=== PATIENT | female | born 1955 | race Caucasian/White ===

== ENCOUNTER → 2017-08-01 10:43 | Outpatient (CLI) | payer OTHER, SELFPAY ==
--- NOTE | 2017-08-01 10:45 | US_ITS ---
STUDY: ULTRASOUND BREAST - LEFT REASON FOR EXAM: Female, 62 years old. Six-month follow-up examination. TECHNIQUE: Axial and longitudinal images of the LEFT breast were performed with a high resolution ultrasound transducer. COMPARISON: Comparison is made with prior study dated January 18, 2017. FINDINGS: LEFT Breast: There is evidence of a 3 mm x 3 mm x 2 mm cyst at 8:00 position of the breast at 1 cm from the nipple. US/Breast Limited Unilateral IMPRESSION: 3 mm x 3 mm x 2 mm cyst at the 8:00 position in the breast at 1 cm from the nipple. ASSESSMENT CATEGORY: BIRADS Category 2: Benign. A letter regarding these results will be sent to the patient by the facility within 30 days. Electronically Signed: Dave Lutz MD at 13:27 EST Tel [phone], Service support ,
== END ==
PROVIDERS: Family Provider Family Medicine; PCP Family Medicine; Visit Provider Obstetrics & Gynecology
DX: R92.2 Inconclusive mammogram (principal)
CPT/HCPCS: 76642

== ENCOUNTER → 2017-10-26 13:40 | Outpatient (CLI) | payer OTHER, SELFPAY | PROVIDERS: Family Provider Family Medicine; PCP Family Medicine | DX: G47.33 Obstructive sleep apnea (adult) (pediatric) (principal) ==

== ENCOUNTER → 2018-03-02 08:25 | Outpatient (CLI) | payer OTHER, SELFPAY ==
--- NOTE | 2018-03-02 08:27 | BI_ITS ---
MAMMOGRAPHY - BILATERAL SCREENING REASON FOR EXAM: Female, 62 years old. Routine annual screening examination. PERTINENT HISTORY: Sister with breast cancer. TECHNIQUE: Digital bilateral breast giovanni (3D mammographic acquisition) in the CC and MLO projections. 2-D mediolateral oblique (MLO) and craniocaudad (CC) views of both breasts were obtained. CAD: Full Field Digital Mammography with Computer Added Detection was performed. COMPARISON: Comparison is made with prior study dated January 10, 2017 and September 03, 2015. FINDINGS: Breast Composition: There are scattered areas of fibroglandular density. There are no dominant masses or suspicious calcifications. Stable 4.2 mm x 4 mm well-defined nodule in the medial retroareolar region of the left breast. This was demonstrated to be a small cyst on prior sonogram dated August 01, 2017. No other significant abnormalities are identified. There has been no significant change since the prior study. BI/SCREENING MAMM (CAD), BILAT IMPRESSION: Stable bilateral screening mammogram. Yearly follow-up mammogram recommended. (A) ASSESSMENT CATEGORY: BIRADS Category 2: Benign. A letter regarding these results will be sent to the patient by the facility within 30 days. Approximately 10% of breast cancers are not detected by mammography. A normal mammogram should not delay biopsy of a clinically suspicious abnormality. [id number] Electronically Signed: Dave Lutz MD at 8:49 EDT Tel [phone], Service support ,
== END ==
PROVIDERS: Family Provider Family Medicine; PCP Family Medicine; Visit Provider Obstetrics & Gynecology
DX: Z12.31 Encounter for screening mammogram for malignant neoplasm of breast (principal)
CPT/HCPCS: 77063; 77067

== ENCOUNTER → 2018-03-15 09:22 | Outpatient (CLI) | payer OTHER, SELFPAY ==
--- NOTE | 2018-03-15 09:23 | US_ITS ---
STUDY: ULTRASOUND BREAST - LEFT REASON FOR EXAM: Female, 62 years old. LT ABN MAMM INTERMITTENT LEFT RETROARIOLAR PAIN POSTNMENOPAUSAL TECHNIQUE: Axial and longitudinal images of the LEFT breast were performed with a high resolution ultrasound transducer. COMPARISON: None. FINDINGS: LEFT Breast: There is a lesion #1 in the retroareolar region. The lesion measures 0.3 x 0.3 x 0.4 cm in size most likely represents a cyst. Posterior Enhancement: Yes. Posterior Shadowing: None. Margins: Sharp and smooth. Echogenicity: Anechoic. Compression effect on Shape: No change. US/Breast Limited Unilateral IMPRESSION: Benign retroareolar cyst measures 4 mm in greatest diameter. ASSESSMENT CATEGORY: BIRADS Category 2: Benign. A letter regarding these results will be sent to the patient by the facility within 30 days. Electronically Signed: Alicia Doherty MD at 12:45 EDT Tel , Service support ,
== END ==
PROVIDERS: Family Provider Family Medicine; PCP Family Medicine; Referring Provider Surgery; Visit Provider Surgery
DX: N63.20 Unspecified lump in the left breast, unspecified quadrant (principal)
CPT/HCPCS: 76642

== ENCOUNTER → 2018-05-09 09:22 | Outpatient (CLI) | payer OTHER, SELFPAY ==
--- NOTE | 2018-05-09 09:26 | US_ITS ---
STUDY: ULTRASOUND BREAST - LEFT REASON FOR EXAM: Female, 62 years old. Left nipple inversion. TECHNIQUE: Axial and longitudinal images of the LEFT breast were performed with a high resolution ultrasound transducer. COMPARISON: Comparison is made with prior ultrasound of the left breast dated March 15, 2018 and prior mammogram dated March 02, 2018. FINDINGS: LEFT Breast: There is a 5 mm x 20 mm x 2 mm cyst in the retroareolar region of the breast. There is also evidence of dilated retroareolar ducts. US/Breast Limited Unilateral IMPRESSION: Stable sonographic examination demonstrated a small retroareolar cyst and dilated ducts. ASSESSMENT CATEGORY: BIRADS Category 2: Benign. A letter regarding these results will be sent to the patient by the facility within 30 days. Electronically Signed: Dave Lutz MD at 10:08 EST Tel [phone], Service support ,
--- OUTSIDE RECORDS SUMMARY | 2018-07-04 10:17 | XMS RPT_ITS ---
:1955 Author Organization OHIP Support Name Relationship Address Phone D Unavailable Unavailable Unavailable NEFTALY GUEVARA Unavailable [address] + [place] [address] D Unavailable Unavailable Unavailable NEFTALY GUEVARA Unavailable [address] + [place] [address] NEFTALY GUEVARA Unavailable [address] + [place], [place] [phone] NEFTALY GUEVARA Unavailable [address] Unavailable [place], [place] [phone] NOT GIVEN Unavailable Unavailable Unavailable D Unavailable Unavailable Unavailable NEFTALY GUEVARA Unavailable [address] + [place] [address] D Unavailable Unavailable Unavailable NEFTALY GUEVARA Unavailable [address] + [place] [address] D Unavailable Unavailable Unavailable D Unavailable Unavailable Unavailable NEFTALY GUEVARA Unavailable [address] + [place] [address] D Unavailable Unavailable Unavailable NEFTALY GUEVARA Unavailable [address] + [place] [address] MICHAEL LORD Unavailable [address] + [place] [address] NEFTALY GUEVARA Unavailable [address] + [place], [place] [phone] NEFTALY GUEVARA Unavailable [address] Unavailable [place], [place] [phone] NOT GIVEN Unavailable Unavailable Unavailable NEFTALY GUEVARA Unavailable [address] + [place], [place] [id number] NEFTALY GUEVARA Unavailable [address] Unavailable [place] [phone] NOT GIVEN Unavailable Unavailable Unavailable NEFTALY GUEVARA Unavailable [address] + [place], [place] [phone] NEFTALY GUEVARA Unavailable [address] Unavailable [place] [id number] NOT GIVEN Unavailable Unavailable Unavailable NEFTALY GUEVARA Unavailable [address] [phone] [place] [address] NEFTALY GUEVARA Unavailable [address] [phone] [place] [address] NEFTALY GUEVARA Unavailable [address] + [place], [place] [phone] NEFTALY GUEVARA Unavailable [address] Unavailable [place] [phone] NOT GIVEN Unavailable Unavailable Unavailable NEFTALY GUEVARA Unavailable [address] + [place], [place] [phone] NEFTALY GUEVARA Unavailable [address] Unavailable [place] [phone] NOT GIVEN Unavailable Unavailable Unavailable D Unavailable Unavailable Unavailable NEFTALY GUEVARA Unavailable [address] + [place] [address] MICHAEL LORD Unavailable [address] + [place] [address] NEFTALY GUEVARA Unavailable [address] + [place], [place] [phone] NEFTALY GUEVARA Unavailable [address] Unavailable [place] [phone] NOT GIVEN Unavailable Unavailable Unavailable NEFTALY GUEVARA Unavailable [address] + [place], [place] [phone] NEFTALY GUEVARA Unavailable [address] Unavailable [place] [phone] NOT GIVEN Unavailable Unavailable Unavailable NEFTALY GUEVARA Unavailable [address] + [place], [place] [phone] NEFTALY GUEVARA Unavailable [address] Unavailable [place] [phone] NOT GIVEN Unavailable Unavailable Unavailable D Unavailable Unavailable Unavailable NEFTALY GUEVARA Unavailable [address] + [place] [address] MICHAEL LORD Unavailable [address] + [place] [address] DEVONKATIA MAYAY Unavailable [address] + [place] [phone] KATIA GUEVARAY Unavailable [address] Un[place] [phone] NOT GIVEN Unavailable Unavailable Unavailable DEVONKATIA MAYAY Unavailable [address] [phone] ~[phone] [place] [address] DEVON NEFTALY Unavailable [address] + [phone] [place] [address] KATIA GUEVARAY Unavailable [address] + [place] [phone] KATIA GUEVARAY Unavailable [address] Unavailable [place] [phone] NOT GIVEN Unavailable Unavailable Unavailable Care Team Providers Name Role Phone Barbara Shields Attending Unavailable Barbara Shields Referring Unavailable Avila, Miko Primary Care Unavailable WENDY CORTEZ Attending Unavailable WENDY CORTEZ Referring Unavailable Avila, Miko Primary Care Unavailable WENDY CORTEZ Consulting Unavailable Barbara Shields Attending Unavailable Barbara Shields Referring Unavailable Avila, Miko Primary Care Unavailable Jb Sharif Attending Unavailable Barbara Shields Referring Unavailable Jb Sharif Attending Unavailable Jb Sharif Referring Unavailable Avila, Miko Primary Care Unavailable Jb Sharif Attending Unavailable Austin, Miko Referring Unavailable RenoabrJb gomez Attending Unavailable Avila, Miko Referring Unavailable CalabrJb gomez Attending Unavailable CalabrettaJb Referring Unavailable Avila, Miko Primary Care Unavailable AVILA, MIKO A Admitting Unavailable AUSTIN MIKO A Attending Unavailable AVILA, MIKO A Primary Care Unavailable ANJELICA JIN MD Consulting Unavailable PROVIDER, UNKNOWN Consulting Unavailable DEMETRIO NÚÑEZ Admitting Unavailable DEMETRIO NÚÑEZ Attending Unavailable DEMETRIO NÚÑEZ Primary Care Unavailable AUSTIN, MIKO A Consulting Unavailable PROVIDER, UNKNOWN Consulting Unavailable PROVIDER, UNKNOWN Consulting Unavailable PROVIDER, UNKNOWN Consulting Unavailable CARTER TURNER M Admitting Unavailable CARTER TURNER M Attending Unavailable KUMAR TURNERAL M Primary Care Unavailable AVILA, MIKO A Admitting Unavailable AVILA, MIKO A Attending Unavailable AVILA, MIKO A Primary Care Unavailable AVILA, MIKO A Consulting Unavailable PROVIDER, UNKNOWN Consulting Unavailable PROVIDER, UNKNOWN Consulting Unavailable PROVIDER, UNKNOWN Consulting Unavailable AVILA, MIKO A Admitting Unavailable AVILA, MIKO A Attending Unavailable AVILA, MIKO A Primary Care Unavailable AVILA, MIKO A Consulting Unavailable PROVIDER, UNKNOWN Consulting Unavailable PROVIDER, UNKNOWN Consulting Unavailable PROVIDER, UNKNOWN Consulting Unavailable JOHNNY, ACHAL M Admitting Unavailable JOHNNY, ACHAL M Attending Unavailable JOHNNY, ACHAL M Primary Care Unavailable AVILA, MIKO A Consulting Unavailable PROVIDER, UNKNOWN Consulting Unavailable PROVIDER, UNKNOWN Consulting Unavailable PROVIDER, UNKNOWN Consulting Unavailable AGUSTIN ORTIZ Admitting Unavailable AGUSTIN ORTIZ Attending Unavailable AGUSTIN ORTIZ Primary Care Unavailable AVILA, MIKO A Consulting Unavailable PROVIDER, UNKNOWN Consulting Unavailable PROVIDER, UNKNOWN Consulting Unavailable PROVIDER, UNKNOWN Consulting Unavailable AGUSTIN ORTIZ Admitting Unavailable AGUSTIN ORTIZ Attending Unavailable ANGEL, AGUSTIN Roca Primary Care Unavailable AVILA, MIKO A Consulting Unavailable PROVIDER, UNKNOWN Consulting Unavailable PROVIDER, UNKNOWN Consulting Unavailable PROVIDER, UNKNOWN Consulting Unavailable JOHNNY, ACHAL M Admitting Unavailable JOHNNY, ACHAL M Attending Unavailable JOHNNY, ACHAL M Primary Care Unavailable AVILA, MIKO A Consulting Unavailable PROVIDER, UNKNOWN Consulting Unavailable PROVIDER, UNKNOWN Consulting Unavailable PROVIDER, UNKNOWN Consulting Unavailable JOHNNY, ACHAL M Admitting Unavailable JOHNNY, ACHAL M Attending Unavailable JOHNNY, ACHAL M Primary Care Unavailable AVILA, MIKO A Consulting Unavailable PROVIDER, UNKNOWN Consulting Unavailable PROVIDER, UNKNOWN Consulting Unavailable PROVIDER, UNKNOWN Consulting Unavailable MARIA DE JESUS DIAZ DO Admitting Unavailable MARIA DE JESUS DIAZ DO Attending Unavailable MARIA DE JESUS DIAZ DO Primary Care Unavailable ANJELICA JIN MD Consulting Unavailable PROVIDER, UNKNOWN Consulting Unavailable YANN HUSSEIN MD Admitting Unavailable YANN HUSSEIN MD Attending Unavailable MACY POWELL MD Consulting Unavailable AUSTIN MENDOZA, MIKO Nunn Primary Care Unavailable AGUSTIN ORTIZ MD Attending Unavailable MIKO AVILA MD Primary Care Unavailable YANN DIALLO JR Attending Unavailable YANN DIALLO JR Referring Unavailable YANN DIALLO JR Referring Unavailable SAN, MASHA M Attending Unavailable DEVAN JB Antoine Referring Unavailable SAN, MASHA M Referring Unavailable SAN, MASHA M Attending Unavailable JB SHARIF Referring Unavailable SAN, MASHA M Referring Unavailable SAN, MASHA M Admitting Unavailable SAN, MASHA M Attending Unavailable SAN, MASHA M Referring Unavailable YANN DIALLO JR Attending Unavailable JARON ZHAO) Attending Unavailable YANN DIALLO JR Referring Unavailable SAN, MASHA Referring Unavailable AVILA, MIKO A Primary Care Unavailable SAN, MASHA Attending Unavailable Mamadou SHARIF JB Referring Unavailable AVILA, MIKO A Primary Care Unavailable SAN, MASHA Attending Unavailable SAN, MASHA Admitting Unavailable SAN, MASHA Referring Unavailable AVILA, MIKO A Primary Care Unavailable SAN, MASHA Referring Unavailable AVILA, MIKO A Primary Care Unavailable SAN, MASHA Attending Unavailable Mamadou SHARIF Referring Unavailable AVILA, MIKO A Primary Care Unavailable YANN DIALLO Referring Unavailable AUSTIN, MIKO A Primary Care Unavailable YANN DIALLO Referring Unavailable YANN DIALLO Attending Unavailable AVILA, MIKO A Primary Care Unavailable PROBLEMS PROBLEMS DATE TYPE CONDITION / CODE ATTENDING STATUS SOURCE 05/24/2018 Active Unknown / NA Active [facility]K(Unknown[facility] Other [place] Repository 05/15/2018 Active Other signs and NA Active [facility] symptoms in breast Clinic Other / N64.59(ICD-10) [place] Repository 05/15/2018 Admitting Unknown / NA Active [facility]Unknown[facility] Repository 05/08/2018 Unknown N64.59 - Other [facility], Active [facility] signs and symptoms [facility] in breast / Hospital N64.59(ICD-10) Repository 03/18/2018 Unknown N63.20 - [facility], Active [facility] Unspecified lump [facility] in the left Hospital breast, Repository unspecified quadrant / N63.20(ICD-10) 03/18/2018 Unknown R92.8 - Other [place], Active [facility] abnormal and [facility] inconclusive Hospital findings on Repository diagnostic imaging of breast / R92.8(ICD-10) 04/05/2015 Active Transient cerebral NORI MARTINEZ, Active [facility] ischemic attack, [facility] Other unspecified / [place] G45.9(ICD-10) Repository 04/05/2015 Active Obstructive sleep NORI MARTINEZ, Active [facility] apnea (adult) [facility] Other (pediatric) / [place] G47.33(ICD-10) Repository 02/05/2018 Active Migraine with NORI MARTINEZ, Active [place] aura, not [facility] Other intractable, [place] without status Repository migrainosus / G43.109(ICD-10) 02/05/2018 Active Restless legs DIALLO JR, Active [facility] syndrome / [facility] Other G25.81(ICD-10) [place] Repository 02/05/2018 Active Chest pain, DIALLO JR, Active [facility] unspecified / [facility] Other R07.9(ICD-10) [place] Repository 10/09/2017 Principle Transient cerebral AVILA, MIKO [facility]unn Active [facility] Diagnosis ischemic attack, [facility] unspecified / Hospital G459(ICD-10) Repository 09/14/2017 Admitting Rheumatoid JOHNNYCARTER AHUJA Active [facility] Diagnosis arthritis with [facility] rheumatoid [facility] Repository without organ or systems involvement / M0579(ICD-10) 09/14/2017 Principle Rheumatoid JOHNNYCARTER AHUJA Active [facility] Diagnosis arthritis with [facility] rheumatoid [facility] Repository without organ or systems involvement / M0579(ICD-10) 09/14/2017 Secondary Other shelter JOHNNYCARTER AHUJA Active [facility] Diagnosis (current) drug [facility] therapy / Hospital C08908(ICD-10) Repository PROCEDURES PROCEDURES No Procedure Records FoundRESULTS RESULTS ANES POST Observed: 05/27/2018 Status: COMPLETED Source: [place] 6:26 PM CLINIC OTHER CAMPUS REPOSITORY HNO ID: [id number] Author: Jamil Johnson Service: Anesthesiology Author Type: Physician Type: Anesthesia PostOp Filed: 05/27/2018 6:30 PM Note Text: POST ANESTHESIA EVALUATION NOTE SERVICE DATE: 05/27/2018 SERVICE TIME: 828 : 1955 Vitals: 05/27/18 1355 05/27/18 1702 05/27/18 174 Temp: 36 ?C (96.8 ?F) 36.8 ?C (98.2 ?F) 36.6 ?C (97.9 ?F) 05/27/18 17005/27/18 17105/27/18 1730 05/27/18 1745 BP: 130/85 130/75 127/74 130/78 05/27/18 1702 05/27/18 1715 05/27/18 1730 05/27/18 174 Pulse: 72 71 72 64 05/27/18 1702 05/27/18 1715 05/27/18 1730 05/27/18 1745 Resp: 12 13 13 8 05/27/18 1702 05/27/18 1715 05/27/18 1730 05/27/18 1745 SpO2: 99% 100% 96% 96% Validated Vital Signs: Yes POST ANES STATUS: No apparent anesthetic complications. The patient is appropriately hydrated with stable respiratory and cardiovascular status. Patient has safe and adequate airway control. The patient has appropriate pain relief and no significant post operative nausea or vomiting. The patient has achieved baseline mental status. Intra-Operative Events: No Significant Anesthesia Events Further assessment by Anesthesia Service: None Other Remarks: Pt was awake and alert in PACU, conversed fluently and appropriately. SIGNATURE: Jamil Johnson MD PATIENT NAME: Claire Guevara DATE: May 27, 2018 TIME: 6:29 PM PAGER/CONTACT #: BRIEF OP NOT Observed: 05/27/2018 Status: COMPLETED Source: [place] 4:52 PM [facility] REPOSITORY HNO ID: [id number] Author: Masha San Service: General Surgery Author Type: Physician Type: Brief Op Note Filed: 05/27/2018 4:53 PM Note Text: BRIEF OPERATIVE / PROCEDURE NOTE LOG ID: [id number] SURGERY/PROCEDURE DATE: 05/27/2018 INCISION/PROCEDURE START TIME: 4:19 PM INCISION CLOSE/PROCEDURE END TIME: SURGEON(S)/PROCEDURALIST(S) AND SENIOR BENEFITS SPECIALIST(S): Surgeon(s) and Role: * Masha San - Primary * Lala Hanna - Fellow No Additional Staff SURGERY/PROCEDURE(S): Left breast duct excisional biopsy ANESTHESIA: General FINDINGS: no suspicious findings ESTIMATED BLOOD LOSS: MINIMAL SPECIMENS: left breast duct excision COMPLICATIONS: None PRE-OP/PRE-PROCEDURE DIAGNOSIS: inverted left nipple POST-OP/POST-PROCEDURE DIAGNOSIS: Abnormal breast exam [N64.59] SIGNATURE: Masha San MD PATIENT NAME: Claire Guevara DATE: May 27, 2018 TIME: 4:52 PM PAGER/CONTACT #: ANES PREOP Observed: 05/27/2018 Status: COMPLETED Source: [place] 2:19 PM [facility] REPOSITORY HNO ID: [id number] Author: Jamil Johnson Service: Anesthesiology Author Type: Physician Type: Anesthesia PreOp Filed: 05/27/2018 3:36 PM Note Text: ANESTHESIOLOGY DAY OF SURGERY NOTE SERVICE DATE: 05/27/2018 SERVICE TIME: 1500 : 1955 Procedure(s) (LRB): LEFT BREAST DUCT EXCISIONAL BIOPSY (Left) Surgeon(s): Masha San Estimated body mass index is 24.09 kg/m? as calculated from the following: Height as of 05/24/18: 160 cm (5' 3). Weight as of 05/24/18: 61.7 kg (136 lb). Most recent hematocrit and potassium results: Potassium 3.7 07/14/2011 ANES DOS/PREOP NOTE: Vitals: 05/27/18 1355 05/27/18 1400 BP: 134/74 Pulse: 67 Resp: 18 Temp: 36 ?C (96.8 ?F) SpO2: 97% Weight: 61.7 kg (136 lb) Height: 160 cm (5' 3) ACTIVE PROBLEM LIST Rheumatoid Arthritis (Hcc) Abnormal Stress Test Hypomania (Hcc) Pvc's Osteopenia Routine Gynecological Examination Gerd (Gastroesophageal Reflux Disease) Impaired Fasting Glucose Neoplasm of Uncertain Behavior of Skin Irritable Bowel Syndrome With Diarrhea Hyperlipidemia Zaid (Obstructive Sleep Apnea) Multiple Thyroid Nodules Tia (Transient Ischemic Attack) Anxiety Neurosis Rbbb Micrognathia Migraine Aura Without Headache Left Pontine Stroke (Hcc) Cerebrovascular Small Vessel Disease Inversion of Nipple PAST MEDICAL HISTORY Diagnosis Date - Abdominal pain - Abnormal breast exam - Arthritis - Bipolar 1 disorder (HCC) - Chest pain - Constipation - Coronary artery disease - Depression - Diabetes (HCC) - Diarrhea - Disorder of bone and cartilage, unspecified - Dizziness - Ear pain - Generalized anxiety disorder - Headache - History of medical problems PVC - Hyperlipidemia 04/05/2015 - Hypertension - Inverted nipple 04/2018 left - Irregular heartbeat beneign irregular heartbeat - Left pontine stroke (HCC) 07/19/2017 - Mitral valve prolapse - Nausea - Numbness and tingling - ZAID (obstructive sleep apnea) - Osteoporosis - Palpitations - Rheumatoid arthritis(714.0) - TIA (transient ischemic attack) PAST SURGICAL HISTORY Procedure Laterality Date - APPENDECTOMY age 48 at time of gallbladder - APPENDECTOMY 2012 - CHOLECYSTECTOMY 2012 - COLONOSCOP W/ OR W/O [facility] SPEC 08/13 Colonoscopy - COLONOSCOP W/ OR W/O [facility] SPEC 04/03/13 Colonoscopy - COLONOSCOP W/ OR W/O [facility] SPEC 04/08/15 Colonoscopy - EGD W/O OR W/BRUSH/WASH 04/03/13 EGD - FOOT LEFT OP SURGERY 06/2014 - HEART CATHETERIZATION 08/04/08 AND 10/2013 Normal Heart Cath --- [facility], Dr. Ortiz - LAPAROSCOPIC CHOLEYCYSTECTOMY 09/11 Cholecystectomy, lap - PAST SURGICAL HISTORY OF 06/2014 bunionectomy - REMOVAL OF HEEL SPUR Right 02/20 - SIGMOIDOSCOPY FLEX DIAG 09/12/2010 Sigmoidoscopy, flexible - VAGINAL HYSTERECTOMY 2008 FAMILY HISTORY Problem Relation Age of Onset - Hypertension Mother - Diabetes Mother age 60 when on insulin - Heart Mother - Cancer Father PROSTATE AGE 73 - Prostate Cancer Father - Diabetes Maternal Grandfather - Arthritis Sister - Cancer Sister Uterus/Colon cancer with mets - ??? - at age 68 - Seizures Daughter - Stroke Daughter - other (migraines) Daughter - other (hypokalemic period paralysis) Daughter - other (avm) Daughter - other (ICH) Daughter - other (high cholesterol) Daughter - Breast Cancer Other 42 triple negative, BRCA1-2 negative, daughter of sister with cancer Social History: Social History Substance Use Topics - Smoking status: Never Smoker - Smokeless tobacco: Never Used - Alcohol use No No current facility-administered medications on file prior to encounter. Current Outpatient Prescriptions on File Prior to Encounter: escitalopram oxalate (LEXAPRO) 10 mg tablet Take 10 mg by mouth once daily. famotidine (PEPCID) 20 mg tablet Take 20 mg by mouth twice daily. fluticasone (FLONASE) 50 mcg/actuation nasal spray FOLIC ACID 1 mg ORAL tablet gabapentin (NEURONTIN) 300 mg capsule TAKE 3 CAPSULES BY MOUTH AT DINNER AND 4 CAPSULES BY MOUTH AT BEDTIME (Patient taking differently: TAKE 2 CAPSULES BY MOUTH AT DINNER AND 3 CAPSULES BY MOUTH AT BEDTIME ) MULTI-VITAMIN ORAL Take by mouth. rosuvastatin (CRESTOR) 5 mg tablet 10 mg every other day. VITAMIN B COMPLEX ORAL Take by mouth once daily. aspirin, enteric coated (ASPIRIN, ENTERIC COATED) 81 mg EC tablet Take 81 mg by mouth once daily. Cholecalciferol, Vitamin D3, (VITAMIN D) 1,000 unit Cap Take 1 capsule by mouth once daily. CPAP Please decrease PAP setting to 9/5 cmH2O and provide us with data download in 2 weeks. etanercept(ENBREL 50 MG/ML (0.98 ML) SUB-Q SYRINGE) takes once weekly. methotrexate 2.5 mg tablet Take 2.5 mg by mouth every Sunday. NITROSTAT 0.4 mg SL tablet Current Facility-Administered Medications: ceFAZolin iv piggyback 2 g in D5W (iso-osmotic) 100 mL (ANCEF) 2 g INTRAVENOUS Pre-Op Once Masha San fentaNYL 50 mcg/mL 50 mcg injection (SUBLIMAZE) 50 mcg INTRAVENOUS (PACU) PRN Jamil Elizabeth HYDROmorphone HCl 0.5 mg injection (DILAUDID) 0.5 mg INTRAVENOUS (PACU) PRN Jamil Elizabeth lactated ringers infusion 5-30 mL/hr INTRAVENOUS CONTINUOUS Masha Antoine San lactated ringers infusion 125 mL/hr INTRAVENOUS (PACU) CONTINUOUS Jamil Elizabeth lidocaine 10 mg/mL (1 %) 1-2 mg injection (XYLOCAINE) 0.1- 0.2 mL INTRADERMAL PRN Masha Antoine San ondansetron (PF) 4 mg injection (ZOFRAN) 4 mg INTRAVENOUS (PACU) PRN Jamil Elizabeth prochlorperazine 10 mg injection (COMPAZINE) 10 mg INTRAVENOUS (PACU) PRN Jamil Elizabeth Allergies: ALLERGIES Allergen Reactions - Augmentin [Amoxicil* Rash DOS EXAM: Adequate NPO status: Yes Anesthetic risks, benefits, alternatives, personnel and consent discussed: Yes Patient agrees to proceed: Yes Previous Anesthesia: No history of adverse event. Airway Assessment: MP 3; Neck ROM: Full ROM without neurologic symptoms; Airway Evaluation: Short Thyromental Distance Symptoms of Sleep Apnea: Pt has a history of ZAID AND has been using BiPAP for 3 years Dentition: Teeth intact Dentures: upper Additional Physical Exam: Lungs: Lungs clear to auscultation. Good diaphragmatic excursion. Cardiac: normal S1 and S2; no rubs, no murmurs, and no gallops Additional Pertinent Findings: N/A Blood Products: Not anticipated for this procedure. Anesthetic Plan: General, Standard ASA Monitors Pain Management Plan: Parenteral or Oral ASA Class: 3 Other Medical Problems: None Chronic Beta Jose Cruz medication administered within 24 hours: N/A I have interviewed and examined the patient. I have reviewed the medical record and/or the pre-anesthesia evaluation, pertinent labs, and test results. Significant changes in the patient's condition since the History and Physical, not otherwise documented in primary service progress notes: No This contains updated information obtained within 48 hours of Surgery/Procedure. SIGNATURE: Jamil Johnson MD PATIENT NAME: Claire Guevara DATE: May 27, 2018 TIME: 2:20 PM CSN: [id number] OPERATIVE NO Observed: 05/27/2018 Status: COMPLETED Source: [place] 12:00 AM CLINIC OTHER CAMPUS REPOSITORY HNO ID: [id number] Author: Masha San Service: General Surgery Author Type: Physician Type: Operative Report Filed: 05/28/2018 10:18 AM Note Text: [facility] - Operative Report CLAIRE GUEVARA : 1955 AGE: 62. SEX: F PATIENT TYPE: A HOSP SV: [facility] LOCATION: [facility] ATTENDING PHYSICIAN: MASHA SAN CSN NUMBER: [id number] DATE OF SURGERY/PROCEDURE: 05/27/2018 INCISION/PROCEDURE START TIME: 4:19 PM INCISION CLOSE/PROCEDURE END TIME: 4:50 PM PREOPERATIVE DIAGNOSIS: Left breast nipple inversion. POSTOPERATIVE DIAGNOSIS: Left breast nipple inversion. SURGEON: Masha San MD SENIOR BENEFITS SPECIALIST: Lala Hanna M.D., PhD, breast fellow. SURGERY/PROCEDURE: Left breast duct excisional biopsy. ANESTHESIA: Laryngeal mask anesthesia. INDICATION: Ms. Guevara is a 62-year-old female, who presented to me for evaluation of new-onset left nipple inversion. This had started several months ago and an imaging workup was negative. Since the inversion was new and there was no clinical or radiographic findings to explain this, I recommended a duct excisional biopsy. The risks, benefits, and alternatives were explained to the patient. She agreed to proceed. DESCRIPTION OF PROCEDURE: The patient was brought back to the operating room and laid in the supine position. After adequate general anesthesia was induced, the patient was prepped and draped in usual sterile fashion. A time-out was performed verifying the correct patient, site, and procedure. The patient received 2 g of Ancef prior to incision. A circumareolar incision was made inside the areola at the 6 o'clock position. A flap of the nipple and areola was made using electrocautery. The ductal tissue behind the nipple was grasped with an Allis and I dissected this out with electrocautery. This was removed and labeled left nipple duct biopsy. The wound was irrigated. Hemostasis was achieved. There was not any suspicious findings during the surgery. 30 mL of 0.5% Marcaine were injected. A figure-of- eight stitch was placed behind the left nipple using a 3-0 Vicryl. The space was then closed using interrupted 3-0 Vicryl stitches. The wound was then closed with interrupted 3-0 Vicryl dermal stitches, followed by running subcuticular 4-0 Monocryl. Exofin was applied. The patient was awoken and brought to the recovery room in stable condition. All sponge and needle counts were correct. Masha San MD AM:[id number] /[id number] HISTORY PHYSICAL Observed: 05/24/2018 Status: COMPLETED Source: [place] 2:14 PM CLINIC OTHER CAMPUS REPOSITORY O ID: [id number] Author: Luci Rosales Service: (none) Author Type: Nurse Practitioner Type: HANDP Filed: 05/24/2018 2:27 PM Note Text: HISTORY AND PHYSICAL EXAMINATION SERVICE DATE: 05/24/2018 SERVICE TIME: 1420 PRIMARY CARE PHYSICIAN: Miko Avila MD REASON FOR VISIT: Claire Guevara is a 62 year old female who is scheduled for NIPPLE BILATERAL EXPLORATION W/ EXCISION OF SOLITARY LACTIFEROUS DUCT at the request of Dr. Masha San for routine HANDP. The patient has the following: ACTIVE PROBLEM LIST Rheumatoid Arthritis (Hcc) Abnormal Stress Test Hypomania (Hcc) Pvc's Osteopenia Routine Gynecological Examination Gerd (Gastroesophageal Reflux Disease) Impaired Fasting Glucose Neoplasm of Uncertain Behavior of Skin Irritable Bowel Syndrome With Diarrhea Hyperlipidemia Zaid (Obstructive Sleep Apnea) Multiple Thyroid Nodules Tia (Transient Ischemic Attack) Anxiety Neurosis Rbbb Micrognathia Migraine Aura Without Headache Left Pontine Stroke (Hcc) Cerebrovascular Small Vessel Disease Inversion of Nipple Subjective CHIEF COMPLAINT: Abnormal breast exam HPI: Ms. Guevara is a 62 year old female present in presurgical testing. She states she had a abnormal mammogram in 01/2018. She had an ultrasound 05/18/2018 that showed a benign 0.6 cm x 0.3 cm x 0.3 cm oval cyst in the left breast at 8 o'clock 3 cm from the nipple. She states she has an inverted nipple as well. Surgery was recommended and she agrees to proceed as planned. She is scheduled for NIPPLE BILATERAL EXPLORATION W/ EXCISION OF SOLITARY LACTIFEROUS DUCT on 05/24/[address] Lim. PAST MEDICAL HISTORY Diagnosis Date - Abdominal pain - Abnormal breast exam - Arthritis - Bipolar 1 disorder (HCC) - Chest pain - Constipation - Coronary artery disease - Depression - Diabetes (HCC) - Diarrhea - Disorder of bone and cartilage, unspecified - Dizziness - Ear pain - Generalized anxiety disorder - Headache - History of medical problems PVC - Hyperlipidemia 04/05/2015 - Hypertension - Inverted nipple 04/2018 left - Irregular heartbeat beneign irregular heartbeat - Left pontine stroke (HCC) 07/19/2017 - Mitral valve prolapse - Nausea - Numbness and tingling - ZAID (obstructive sleep apnea) - Osteoporosis - Palpitations - Rheumatoid arthritis(714.0) - TIA (transient ischemic attack) PAST SURGICAL HISTORY Procedure Laterality Date - APPENDECTOMY age 48 at time of gallbladder - APPENDECTOMY 2012 - CHOLECYSTECTOMY 2012 - COLONOSCOP W/ OR W/O [facility] SPEC 08/13 Colonoscopy - COLONOSCOP W/ OR W/O [facility] SPEC 04/03/13 Colonoscopy - COLONOSCOP W/ OR W/O [facility] SPEC 04/08/15 Colonoscopy - EGD W/O OR W/BRUSH/WASH 04/03/13 EGD - FOOT LEFT OP SURGERY 06/2014 - HEART CATHETERIZATION 08/04/08 AND 10/2013 Normal Heart Cath --- [facility], Dr. Ortiz - LAPAROSCOPIC CHOLEYCYSTECTOMY 09/11 Cholecystectomy, lap - PAST SURGICAL HISTORY OF 06/2014 bunionectomy - REMOVAL OF HEEL SPUR Right 02/20 - SIGMOIDOSCOPY FLEX DIAG 09/12/2010 Sigmoidoscopy, flexible - VAGINAL HYSTERECTOMY 2008 FAMILY HISTORY Problem Relation Age of Onset - Hypertension Mother - Diabetes Mother age 60 when on insulin - Heart Mother - Cancer Father PROSTATE AGE 73 - Prostate Cancer Father - Diabetes Maternal Grandfather - Arthritis Sister - Cancer Sister Uterus/Colon cancer with mets - ??? 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 Taking Cholecalciferol, Vitamin D3, (VITAMIN D) 1,000 unit Cap Take 1 capsule by mouth once daily. Taking CPAP Please decrease PAP setting to 9/5 cmH2O and provide us with data download in 2 weeks. escitalopram oxalate (LEXAPRO) 10 mg tablet Take 10 mg by mouth once daily. Not Taking etanercept(ENBREL 50 MG/ML (0.98 ML) SUB-Q SYRINGE) takes once weekly. Taking famotidine (PEPCID) 20 mg tablet Take 20 mg by mouth twice daily. Taking fluticasone (FLONASE) 50 mcg/actuation nasal spray Taking FOLIC ACID 1 mg ORAL tablet Taking gabapentin (NEURONTIN) 300 mg capsule TAKE 3 CAPSULES BY MOUTH AT DINNER AND 4 CAPSULES BY MOUTH AT BEDTIME Patient taking differently: TAKE 2 CAPSULES BY MOUTH AT DINNER AND 3 CAPSULES BY MOUTH AT BEDTIME methotrexate 2.5 mg tablet Take 2.5 mg by mouth every Sunday. Taking MULTI-VITAMIN ORAL Take by mouth. Taking NITROSTAT 0.4 mg SL tablet Taking rosuvastatin (CRESTOR) 5 mg tablet 10 mg every other day. Not Taking VITAMIN B COMPLEX ORAL Take by mouth once daily. Taking No medication comments found. ALLERGIES Allergen Reactions - Augmentin [Amoxicil* Rash REVIEW OF SYSTEMS: PAIN ASSESSMENT: General: Denies fever, chills, and unexpected weight change. Neuro: Denies dizziness. + headaches. Hx tia- no residual. Respiratory: Denies SOB or cough Cardiovascular: Denies CP. + palpitations. + MVP. + CAD GI: Denies abd pain and N/V/D. + GERD. +IBS : Denies dysuria. 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 Endocrine: + diabetes. Denies or thyroid disease Hematology: Denies history of bleeding or clotting disorder. Psych: + anxiety/depression. + bipolar Musculoskeletal: +RA- hand and feet pain Skin: Denies open sores and rashes. Objective PHYSICAL EXAM: VITALS: BP 120/86 Pulse 84 Temp 98 Resp 18 Ht 5' 3 (1.60m) Wt 136 lb (61.7kg) SpO2 95% LMP 04/11/2005 BMI 24.10 kg/(m2). General: NAD. Cooperative. Skin: Skin is warm, no rashes, and no open sores. HEENT: Normocephalic. Cardiovascular: Normal S1 AND S2. No murmur. Lungs: CTA. No respiratory distress. Abdomen: Soft. Extremities: No edema. Neurological: Alert and oriented to person, place, and time. Pulses: radial pulses +2 Diagnostic tests reviewed for today's visit: Lab Value Units Date High Low Hemoglobin A1C (%) Date Value 07/14/2011 5.9 HBA1C, [place] (%) Date Value 08/10/2010 5.6 07/31/2009 6.4 02/18/2009 6.3 PENDING Assessment/Plan Patient has the following medical conditions which may affect martell-operative course CAD - Stable and medication(s) reviewed. Heart cath . Stress test 01/2018 wnl. Diabetes - Well controlled. Resolved with weight loss. Diet controlled HTN - Well controlled. bp 120/86 day of pretesting Hyperlipidemia ZAID - Patient is not able to use CPAP/BIPAP Hx tia with no residual METS: Climb a flight of stairs or walk up a hill (5.50 METs) ANESTHESIA FINDINGS: Intubation History: hx of difficult intubation 2011. She was not given a letter and has had surgery since that time without any problems Significant Anesthesia Considerations: Difficult intubation and a CAD - Stable and medication(s) reviewed. Heart cath . Stress test 01/2018 wnl. Diabetes - Well controlled. Resolved with weight loss. Diet controlled HTN - Well controlled. bp 120/86 day of pretesting Hyperlipidemia ZAID - Patient is not able to use CPAP/BIPAP Hx mvp. Hx tia with no residual PLAN Planned Procedure: NIPPLE BILATERAL EXPLORATION W/ EXCISION OF SOLITARY LACTIFEROUS DUCT CONSULTS: Patient does not require consults for optimization at this time. The Following Tests/Procedures Have Been Initiated: No orders of the defined types were placed in this encounter. Planned Anesthetic: general Instructions Given to Patient: Patient given verbal and written preop instructions and voices comprehension and compliance. SIGNATURE: Luci Rosales APRN.CNP PATIENT NAME: Claire Guevara DATE: May 24, 2018 TIME: 2:14 PM PAGER/CONTACT #: [email or web address] Observed: 05/22/2018 Status: COMPLETED Source: [place] 2:[address] [facility] OTHER [place] REPOSITORY Office Visit (AGGBRCR) CLAIRE GUEVARA ([id number]) 1955 F T Date Time Provider Department 05/22/18 2:30 PM [facility] During your visit today, we recorded the following information about you: Pulse Blood pressure Weight Height 69/minute 135/77 60.8 kg 1.626 m Iza Candelaria MA 05/22/2018 2:12 PM Signed Patient presents for review of breast ultrasound. KATHERINE Ratliff MD 05/22/2018 2:31 PM Signed Chief Complaint:Patient presents with: Breast Problem: inverted nipple Claire Guevara is a 62 year old female who presents today for imaging results. She has a new onset of left nipple inversion that started several months ago. Today, she had a repeat ultrasound which demonstrated a known benign cyst measuring 0.6 cm at 8 o'clock 3 cm from the nipple and no retroareolar lesions. BIRADS 2. She has no new breast complaints. PAST MEDICAL HISTORY Diagnosis Date - Abdominal pain - Arthritis - Bipolar 1 disorder (HCC) - Chest pain - Constipation - Coronary artery disease - Depression - Diabetes (HCC) - Diarrhea - Disorder of bone and cartilage, unspecified - Dizziness - Ear pain - Generalized anxiety disorder - Headache - History of medical problems PVC - Hyperlipidemia 04/05/2015 - Hypertension - Inverted nipple 04/2018 left - Irregular heartbeat beneign irregular heartbeat - Left pontine stroke (HCC) 07/19/2017 - Mitral valve prolapse - Nausea - Numbness and tingling - Obstructive sleep apnea - ZAID (obstructive sleep apnea) - Osteoporosis - Palpitations - Rheumatoid arthritis(714.0) - TIA (transient ischemic attack) PAST SURGICAL HISTORY Procedure Laterality Date - APPENDECTOMY age 48 at time of gallbladder - APPENDECTOMY 2012 - CHOLECYSTECTOMY 2012 - COLONOSCOP W/ OR W/O [facility] SPEC 08/13 Colonoscopy - COLONOSCOP W/ OR W/O [facility] SPEC 04/03/13 Colonoscopy - COLONOSCOP W/ OR W/O [facility] SPEC 04/08/15 Colonoscopy - EGD W/O OR W/BRUSH/WASH 04/03/13 EGD - FOOT LEFT OP SURGERY 06/2014 - HEART CATHETERIZATION 08/04/08 AND 10/2013 Normal Heart Cath --- [facility], Dr. Ortiz - LAPAROSCOPIC CHOLEYCYSTECTOMY 09/11 Cholecystectomy, lap - PAST SURGICAL HISTORY OF 06/2014 bunionectomy - REMOVAL OF HEEL SPUR Right 02/20 - SIGMOIDOSCOPY FLEX DIAG 09/12/2010 Sigmoidoscopy, flexible - VAGINAL HYSTERECTOMY 2008 FAMILY HISTORY Problem Relation Age of Onset - Hypertension Mother - Diabetes Mother age 60 when on insulin - Heart Mother - Cancer Father PROSTATE AGE 73 - Prostate Cancer Father - Diabetes Maternal Grandfather - Arthritis Sister - Cancer Sister Uterus/Colon cancer with mets - ??? 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 Disp: Rfl: Cholecalciferol, Vitamin D3, (VITAMIN D) 1,000 unit Cap Take 1 capsule by mouth once daily. Disp: Rfl: 0 CPAP Please decrease PAP setting to 9/5 cmH2O and provide us with data download in 2 weeks. Disp: 1 Device Rfl: 0 escitalopram oxalate (LEXAPRO) 10 mg tablet Take 10 mg by mouth once daily. Disp: Rfl: etanercept(ENBREL 50 MG/ML (0.98 ML) SUB-Q SYRINGE) takes once weekly. Disp: Rfl: 0 famotidine (PEPCID) 20 mg tablet Take 20 mg by mouth twice daily. Disp: Rfl: fluticasone (FLONASE) 50 mcg/actuation nasal spray Disp: Rfl: FOLIC ACID 1 mg ORAL tablet Disp: Rfl: gabapentin (NEURONTIN) 300 mg capsule TAKE 3 CAPSULES BY MOUTH AT DINNER AND 4 CAPSULES BY MOUTH AT BEDTIME (Patient taking differently: TAKE 2 CAPSULES BY MOUTH AT DINNER AND 3 CAPSULES BY MOUTH AT BEDTIME ) Disp: 630 capsule Rfl: 0 methotrexate 2.5 mg tablet Take 2.5 mg by mouth every Sunday. Disp: Rfl: MULTI-VITAMIN ORAL Take by mouth. Disp: Rfl: NITROSTAT 0.4 mg SL tablet Disp: Rfl: rosuvastatin (CRESTOR) 5 mg tablet 10 mg every other day. Disp: Rfl: VITAMIN B COMPLEX ORAL Take by mouth once daily. Disp: Rfl: No current facility-administered medications for this visit. BP 135/77 Pulse 69 Ht 5' 4 (1.63m) Wt 134 lb (60.8kg) LMP 04/11/2005 BMI 22.99 kg/(m2). PHYSICAL EXAMINATION General appearance: alert, well appearing, and in no distress Mental status: alert, oriented to person, place and time Neck: supple, no significant adenopathy Breast Exam: On visual in spection of the breasts finds them to be Breasts: symmetric RIGHT Skin changes: No Nipple retraction:No Axillary adenopathy: No Supraclavicular adenopathy: No Palpable masses: No Tenderness: No Nipple discharge: No LEFT Skin changes: No Nipple retraction:Yes, with slit like opening Axillary adenopathy: No Supraclavicular adenopathy: No Palpable masses: No Tenderness: No Nipple discharge: No Pre-op Discussion of Benign Lesions: We have reviewed the risks, benefits and alternatives of the procedure. The risks are to include but not limited to bleeding, infection, inadequate surgical margins, sampling error with false results, unsightly scar, chronic pain, collateral damage, and incomplete resection resulting in a residual mass, and imponderables to include, but not limited to disability or . She understands that if there is a diagnosis of cancer, further surgical treatment will be required. I have answered all of her questions to her satisfaction, she verbalizes that she understands the risks and requests to proceed. ASSESSMENT/PLAN Inversion of nipple Ms. Guevara is a 62 year old female with new onset left nipple inversion. Today, her repeat ultrasound did not identify any lesions and her mammograms in February were benign. On my clinical exam, there is inversion. I recommend a duct excisional biopsy to ensure there is no malignancy. This will be scheduled at her earliest convenience. Masha San MD 05/22/2018 2:25 PM Masha San MD 05/22/2018 2:30 PM Written Ms. Guevara is a 62 year old female with new onset left nipple inversion. Today, her repeat ultrasound did not identify any lesions and her mammograms in February were benign. On my clinical exam, there is inversion. I recommend a duct excisional biopsy to ensure there is no malignancy. This will be scheduled at her earliest convenience. Referring Provider: JB SHARIF [[id number]] Allergies As of Date: 05/22/2018 Noted Allergy Reaction AUGMENTIN (AMOXICILLIN-POT CLAVUL*05/04/2017 2 - Rash Date Reviewed: 05/22/2018 Reviewed by: Iza Candelaria - Fully Assessed Reason for Visit: Breast Problem [16] Cmt: inverted nipple Primary Visit Diagnosis:Inversion, nipple [N64.59] Other Visit Diagnosis:Inversion of nipple [N64.59] Order(s):HANDP FOR SURGERY [[id number]] Order #: [id number] Prescriptions as of 05/22/2018 Sig: ASPIRIN 81 MG TABLET,DELAYED * Take 81 mg by mouth once shane* * CHOLECALCIFEROL (VITAMIN D3) * Take 1 capsule by mouth once * CPAP Please decrease PAP setting t* ESCITALOPRAM 10 MG TABLET Take 10 mg by mouth once shane* * ENBREL 50 MG/ML (0.98 ML) SUB* takes once weekly. FAMOTIDINE 20 MG TABLET Take 20 mg by mouth twice tracy* FLUTICASONE 50 MCG/ACTUATION * * FOLIC ACID 1 MG TABLET GABAPENTIN 300 MG CAPSULE TAKE 3 CAPSULES BY MOUTH AT D* Patient taking differently: TAKE 2 CAPSULES BY MOUTH AT D* METHOTREXATE SODIUM 2.5 MG TA* Take 2.5 mg by mouth every Fr* MULTI-VITAMIN ORAL Take by mouth. NITROSTAT 0.4 MG SUBLINGUAL T* ROSUVASTATIN 5 MG TABLET 10 mg every other day. VITAMIN B COMPLEX ORAL Take by mouth once daily. Problem List As Of Date 05/22/2018 Noted Resolved Rheumatoid arthritis (HCC) [M06.9] More... More... More... Abnormal Stress Test [R94.39] INVALID FOR* More... 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 PVC's INVALID FOR* More... Osteopenia [M85.80] INVALID FOR* Routine Gynecological Examination [Z01.419] INVALID FOR* Class: Chronic More... GERD (Gastroesophageal Reflux Disease) [K21.9] INVALID FOR* More... Impaired Fasting Glucose [R73.01] INVALID FOR* Neoplasm of uncertain behavior of skin [D48.5] INVALID FOR* Irritable bowel syndrome with diarrhea [K58.0] INVALID FOR* Hyperlipidemia [E78.5] INVALID FOR* ZAID (obstructive sleep apnea) [G47.33] INVALID FOR* Multiple thyroid nodules [E04.2] INVALID FOR* TIA (transient ischemic attack) [G45.9] INVALID FOR* Anxiety neurosis [F41.1] INVALID FOR* RBBB [I45.10] INVALID FOR* Micrognathia [M26.09] INVALID FOR* Family history of colon cancer [Z80.0] INVALID FOR*04/08/2015 Migraine aura without headache [G43.109] INVALID FOR* Left pontine stroke (HCC) [I63.50] INVALID FOR* Cerebrovascular small vessel disease [I67.9] INVALID FOR* Inversion of nipple [N64.59] INVALID FOR* More... Visit Notes: >> Iza DilanKatherineVita Bari SunMay 22, 2018 2:10 PM Status: Signed Patient presents for review of breast ultrasound. Iza Candelaria MA Level of Service: EST PATIENT VISIT LEVEL 4 [[id number]] Disposition: Return in about 1 month (around 06/22/2018). Follow-up and Disposition History Recorded Encounter Status:Closed by MASHA SAN MD on 05/22/18 PROGRESS Observed: 05/22/2018 Status: COMPLETED Source: [place] 2:25 PM CLINIC OTHER CAMPUS REPOSITORY O ID: [id number] Author: Masha San Service: (none) Author Type: Physician Type: Progress Notes Filed: 05/22/2018 2:31 PM Note Text: Chief Complaint:Patient presents with: Breast Problem: inverted nipple Claire Guevara is a 62 year old female who presents today for imaging results. She has a new onset of left nipple inversion that started several months ago. Today, she had a repeat ultrasound which demonstrated a known benign cyst measuring 0.6 cm at 8 o'clock 3 cm from the nipple and no retroareolar lesions. BIRADS 2. She has no new breast complaints. PAST MEDICAL HISTORY Diagnosis Date - Abdominal pain - Arthritis - Bipolar 1 disorder (HCC) - Chest pain - Constipation - Coronary artery disease - Depression - Diabetes (HCC) - Diarrhea - Disorder of bone and cartilage, unspecified - Dizziness - Ear pain - Generalized anxiety disorder - Headache - History of medical problems PVC - Hyperlipidemia 04/05/2015 - Hypertension - Inverted nipple 04/2018 left - Irregular heartbeat beneign irregular heartbeat - Left pontine stroke (HCC) 07/19/2017 - Mitral valve prolapse - Nausea - Numbness and tingling - Obstructive sleep apnea - ZAID (obstructive sleep apnea) - Osteoporosis - Palpitations - Rheumatoid arthritis(714.0) - TIA (transient ischemic attack) PAST SURGICAL HISTORY Procedure Laterality Date - APPENDECTOMY age 48 at time of gallbladder - APPENDECTOMY 2012 - CHOLECYSTECTOMY 2012 - COLONOSCOP W/ OR W/O [facility] SPEC 08/13 Colonoscopy - COLONOSCOP W/ OR W/O [facility] SPEC 04/03/13 Colonoscopy - COLONOSCOP W/ OR W/O [facility] SPEC 04/08/15 Colonoscopy - EGD W/O OR W/BRUSH/WASH 04/03/13 EGD - FOOT LEFT OP SURGERY 06/2014 - HEART CATHETERIZATION 08/04/08 AND 10/2013 Normal Heart Cath --- [facility], Dr. Ortiz - LAPAROSCOPIC CHOLEYCYSTECTOMY 09/11 Cholecystectomy, lap - PAST SURGICAL HISTORY OF 06/2014 bunionectomy - REMOVAL OF HEEL SPUR Right 02/20 - SIGMOIDOSCOPY FLEX DIAG 09/12/2010 Sigmoidoscopy, flexible - VAGINAL HYSTERECTOMY 2008 FAMILY HISTORY Problem Relation Age of Onset - Hypertension Mother - Diabetes Mother age 60 when on insulin - Heart Mother - Cancer Father PROSTATE AGE 73 - Prostate Cancer Father - Diabetes Maternal Grandfather - Arthritis Sister - Cancer Sister Uterus/Colon cancer with mets - ??? 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 Disp: Rfl: Cholecalciferol, Vitamin D3, (VITAMIN D) 1,000 unit Cap Take 1 capsule by mouth once daily. Disp: Rfl: 0 CPAP Please decrease PAP setting to 9/5 cmH2O and provide us with data download in 2 weeks. Disp: 1 Device Rfl: 0 escitalopram oxalate (LEXAPRO) 10 mg tablet Take 10 mg by mouth once daily. Disp: Rfl: etanercept(ENBREL 50 MG/ML (0.98 ML) SUB-Q SYRINGE) takes once weekly. Disp: Rfl: 0 famotidine (PEPCID) 20 mg tablet Take 20 mg by mouth twice daily. Disp: Rfl: fluticasone (FLONASE) 50 mcg/actuation nasal spray Disp: Rfl: FOLIC ACID 1 mg ORAL tablet Disp: Rfl: gabapentin (NEURONTIN) 300 mg capsule TAKE 3 CAPSULES BY MOUTH AT DINNER AND 4 CAPSULES BY MOUTH AT BEDTIME (Patient taking differently: TAKE 2 CAPSULES BY MOUTH AT DINNER AND 3 CAPSULES BY MOUTH AT BEDTIME ) Disp: 630 capsule Rfl: 0 methotrexate 2.5 mg tablet Take 2.5 mg by mouth every Sunday. Disp: Rfl: MULTI-VITAMIN ORAL Take by mouth. Disp: Rfl: NITROSTAT 0.4 mg SL tablet Disp: Rfl: rosuvastatin (CRESTOR) 5 mg tablet 10 mg every other day. Disp: Rfl: VITAMIN B COMPLEX ORAL Take by mouth once daily. Disp: Rfl: No current facility-administered medications for this visit. BP 135/77 Pulse 69 Ht 5' 4 (1.63m) Wt 134 lb (60.8kg) LMP 04/11/2005 BMI 22.99 kg/(m2). PHYSICAL EXAMINATION General appearance: alert, well appearing, and in no distress Mental status: alert, oriented to person, place and time Neck: supple, no significant adenopathy Breast Exam: On visual in spection of the breasts finds them to be Breasts: symmetric RIGHT Skin changes: No Nipple retraction:No Axillary adenopathy: No Supraclavicular adenopathy: No Palpable masses: No Tenderness: No Nipple discharge: No LEFT Skin changes: No Nipple retraction:Yes, with slit like opening Axillary adenopathy: No Supraclavicular adenopathy: No Palpable masses: No Tenderness: No Nipple discharge: No Pre-op Discussion of Benign Lesions: We have reviewed the risks, benefits and alternatives of the procedure. The risks are to include but not limited to bleeding, infection, inadequate surgical margins, sampling error with false results, unsightly scar, chronic pain, collateral damage, and incomplete resection resulting in a residual mass, and imponderables to include, but not limited to disability or . She understands that if there is a diagnosis of cancer, further surgical treatment will be required. I have answered all of her questions to her satisfaction, she verbalizes that she understands the risks and requests to proceed. ASSESSMENT/PLAN Inversion of nipple Ms. Guevara is a 62 year old female with new onset left nipple inversion. Today, her repeat ultrasound did not identify any lesions and her mammograms in February were benign. On my clinical exam, there is inversion. I recommend a duct excisional biopsy to ensure there is no malignancy. This will be scheduled at her earliest convenience. Masha San MD 05/22/2018 2:25 PM MAMM US BREAST LTD Observed: 05/22/2018 Status: F Source: [facility] 1:56 PM HEALTH SYSTEM REPOSITORY Performed at [facility] APPROVED BY: ISRRAEL ROONEY MD #[id number] - MAMM US BREAST LTD LEFT LIMITED ULTRASOUND OF LEFT BREAST: 05/22/2018 CLINICAL: The patient is seeing Dr. San today for evaluation of left nipple inversion. Comparison is made to exams dated: 05/09/2018 ultrasound and 03/02/2018 mammogram - [facility]. Color flow and real-time ultrasound of the left breast 8 o'clock, and retroareolar regions were performed. More scale images of the real-time examination were reviewed. There is a benign 0.6 cm x 0.3 cm x 0.3 cm oval cyst in the left breast at 8 o'clock 3 cm from the nipple. This oval cyst is anechoic with posterior acoustic enhancement. This abnormality is not signi ficantly changed and correlates with mammography findings. Color flow imaging demonstrates that there is no increase in vascularity. No sonographic abnormalities are seen in the subareolar breast to correlate with nipple inversion. IMPRESSION: BENIGN There is no sonographic evidence of malignancy. The 0.6 cm x 0.3 cm x 0.3 cm oval cyst in the left breast at 8 o'clock is benign. There is no abnormality seen in the left breast to correspond with the nipple abnormality, however, clinical followup is recommended. Dr. Isrrael rosario/jignesh:05/22/2018 14:04:28 copy to: Jb Sharif, [facility], ph: [phone] copy to: Dr. Miko Avila M.D., Dr. Miko Avila, ph: [phone], fax: [phone] Supervisor Sawmill(s): Emily Lloyd R.D.M.S., [employer] Ultrasound BI-RADS: 2 Benign HOSP Observed: 05/22/2018 Status: COMPLETED Source: [place] 12:00 AM CLINIC OTHER CAMPUS REPOSITORY Patient:Claire Guevara MRN: <[id number]> Height:5' 3(1.6 m) Weight:136 lb (61.689 kg) Outpatient Medications as of 05/27/18: aspirin, enteric coated (ASPIRIN, ENTERIC COATED) 81 mg EC tablet Cholecalciferol, Vitamin D3, (VITAMIN D) 1,000 unit Cap CPAP escitalopram oxalate (LEXAPRO) 10 mg tablet etanercept(ENBREL 50 MG/ML (0.98 ML) SUB-Q SYRINGE) famotidine (PEPCID) 20 mg tablet fluticasone (FLONASE) 50 mcg/actuation nasal spray FOLIC ACID 1 mg ORAL tablet gabapentin (NEURONTIN) 300 mg capsule methotrexate 2.5 mg tablet MULTI-VITAMIN ORAL NITROSTAT 0.4 mg SL tablet rosuvastatin (CRESTOR) 5 mg tablet VITAMIN B COMPLEX ORAL Admission/Clinic Administered Medications as of 05/27/18: ceFAZolin iv piggyback 2 g in D5W (iso-osmotic) 100 mL (ANCEF) fentaNYL 50 mcg/mL 50 mcg injection (SUBLIMAZE) HYDROmorphone HCl 0.5 mg injection (DILAUDID) lactated ringers infusion lactated ringers infusion lidocaine 10 mg/mL (1 %) 1-2 mg injection (XYLOCAINE) ondansetron (PF) 4 mg injection (ZOFRAN) prochlorperazine 10 mg injection (COMPAZINE) Problem List: Rheumatoid arthritis (HCC) [M06.9] Abnormal stress test [R94.39] Hypomania (HCC) [F30.8] PVC's [] Osteopenia [M85.80] Routine gynecological examination [Z01.419] GERD (gastroesophageal reflux disease) [K21.9] Impaired fasting glucose [R73.01] Neoplasm of uncertain behavior of skin [D48.5] Irritable bowel syndrome with diarrhea [K58.0] Hyperlipidemia [E78.5] ZAID (obstructive sleep apnea) [G47.33] Multiple thyroid nodules [E04.2] TIA (transient ischemic attack) [G45.9] Anxiety neurosis [F41.1] RBBB [I45.10] Micrognathia [M26.09] Migraine aura without headache [G43.109] Left pontine stroke (HCC) [I63.50] Cerebrovascular small vessel disease [I67.9] Inversion of nipple [N64.59] Allergies: Augmentin [Amoxicillin-Pot Clavulanate] Date Verified: 05/27/18 Lab Values No results within the last 30 days for the following basenames: K,HCT Progress Notes (GENS AG ACC BRCR): Iza Candelaria MA 05/22/2018 2:12 PM Signed Patient presents for review of breast ultrasound. KATHERINE Ratliff MD 05/22/2018 2:31 PM Signed Chief Complaint:Patient presents with: Breast Problem: inverted nipple Claire Guevara is a 62 year old female who presents today for imaging results. She has a new onset of left nipple inversion that started several months ago. Today, she had a repeat ultrasound which demonstrated a known benign cyst measuring 0.6 cm at 8 o'clock 3 cm from the nipple and no retroareolar lesions. BIRADS 2. She has no new breast complaints. PAST MEDICAL HISTORY Diagnosis Date - Abdominal pain - Arthritis - Bipolar 1 disorder (HCC) - Chest pain - Constipation - Coronary artery disease - Depression - Diabetes (HCC) - Diarrhea - Disorder of bone and cartilage, unspecified - Dizziness - Ear pain - Generalized anxiety disorder - Headache - History of medical problems PVC - Hyperlipidemia 04/05/2015 - Hypertension - Inverted nipple 04/2018 left - Irregular heartbeat beneign irregular heartbeat - Left pontine stroke (HCC) 07/19/2017 - Mitral valve prolapse - Nausea - Numbness and tingling - Obstructive sleep apnea - AZID (obstructive sleep apnea) - Osteoporosis - Palpitations - Rheumatoid arthritis(714.0) - TIA (transient ischemic attack) PAST SURGICAL HISTORY Procedure Laterality Date - APPENDECTOMY age 48 at time of gallbladder - APPENDECTOMY 2012 - CHOLECYSTECTOMY 2012 - COLONOSCOP W/ OR W/O BRS SPEC 08/13 Colonoscopy - COLONOSCOP W/ OR W/O BRSH SPEC 04/03/13 Colonoscopy - COLONOSCOP W/ OR W/O BRSH SPEC 04/08/15 Colonoscopy - EGD W/O OR W/BRUSH/WASH 04/03/13 EGD - FOOT LEFT OP SURGERY 06/2014 - HEART CATHETERIZATION 08/04/08 AND 10/2013 Normal Heart Cath --- [facility], Dr. Ortiz - LAPAROSCOPIC CHOLEYCYSTECTOMY 09/11 Cholecystectomy, lap - PAST SURGICAL HISTORY OF 06/2014 bunionectomy - REMOVAL OF HEEL SPUR Right 02/20 - SIGMOIDOSCOPY FLEX DIAG 09/12/2010 Sigmoidoscopy, flexible - VAGINAL HYSTERECTOMY 2008 FAMILY HISTORY Problem Relation Age of Onset - Hypertension Mother - Diabetes Mother age 60 when on insulin - Heart Mother - Cancer Father PROSTATE AGE 73 - Prostate Cancer Father - Diabetes Maternal Grandfather - Arthritis Sister - Cancer Sister Uterus/Colon cancer with mets - ??? 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 Disp: Rfl: Cholecalciferol, Vitamin D3, (VITAMIN D) 1,000 unit Cap Take 1 capsule by mouth once daily. Disp: Rfl: 0 CPAP Please decrease PAP setting to 9/5 cmH2O and provide us with data download in 2 weeks. Disp: 1 Device Rfl: 0 escitalopram oxalate (LEXAPRO) 10 mg tablet Take 10 mg by mouth once daily. Disp: Rfl: etanercept(ENBREL 50 MG/ML (0.98 ML) SUB-Q SYRINGE) takes once weekly. Disp: Rfl: 0 famotidine (PEPCID) 20 mg tablet Take 20 mg by mouth twice daily. Disp: Rfl: fluticasone (FLONASE) 50 mcg/actuation nasal spray Disp: Rfl: FOLIC ACID 1 mg ORAL tablet Disp: Rfl: gabapentin (NEURONTIN) 300 mg capsule TAKE 3 CAPSULES BY MOUTH AT DINNER AND 4 CAPSULES BY MOUTH AT BEDTIME (Patient taking differently: TAKE 2 CAPSULES BY MOUTH AT DINNER AND 3 CAPSULES BY MOUTH AT BEDTIME ) Disp: 630 capsule Rfl: 0 methotrexate 2.5 mg tablet Take 2.5 mg by mouth every Sunday. Disp: Rfl: MULTI-VITAMIN ORAL Take by mouth. Disp: Rfl: NITROSTAT 0.4 mg SL tablet Disp: Rfl: rosuvastatin (CRESTOR) 5 mg tablet 10 mg every other day. Disp: Rfl: VITAMIN B COMPLEX ORAL Take by mouth once daily. Disp: Rfl: No current facility-administered medications for this visit. BP 135/77 Pulse 69 Ht 5' 4 (1.63m) Wt 134 lb (60.8kg) LMP 04/11/2005 BMI 22.99 kg/(m2). PHYSICAL EXAMINATION General appearance: alert, well appearing, and in no distress Mental status: alert, oriented to person, place and time Neck: supple, no significant adenopathy Breast Exam: On visual in spection of the breasts finds them to be Breasts: symmetric RIGHT Skin changes: No Nipple retraction:No Axillary adenopathy: No Supraclavicular adenopathy: No Palpable masses: No Tenderness: No Nipple discharge: No LEFT Skin changes: No Nipple retraction:Yes, with slit like opening Axillary adenopathy: No Supraclavicular adenopathy: No Palpable masses: No Tenderness: No Nipple discharge: No Pre-op Discussion of Benign Lesions: We have reviewed the risks, benefits and alternatives of the procedure. The risks are to include but not limited to bleeding, infection, inadequate surgical margins, sampling error with false results, unsightly scar, chronic pain, collateral damage, and incomplete resection resulting in a residual mass, and imponderables to include, but not limited to disability or . She understands that if there is a diagnosis of cancer, further surgical treatment will be required. I have answered all of her questions to her satisfaction, she verbalizes that she understands the risks and requests to proceed. ASSESSMENT/PLAN Inversion of nipple Ms. Guevara is a 62 year old female with new onset left nipple inversion. Today, her repeat ultrasound did not identify any lesions and her mammograms in February were benign. On my clinical exam, there is inversion. I recommend a duct excisional biopsy to ensure there is no malignancy. This will be scheduled at her earliest convenience. Masha San MD 05/22/2018 2:25 PM Masha San MD 05/22/2018 2:30 PM Written Ms. Guevara is a 62 year old female with new onset left nipple inversion. Today, her repeat ultrasound did not identify any lesions and her mammograms in February were benign. On my clinical exam, there is inversion. I recommend a duct excisional biopsy to ensure there is no malignancy. This will be scheduled at her earliest convenience. Progress Notes ([facility] AG ACC BRCR): Iza Candelaria MA 05/15/2018 2:19 PM Signed Race: Age at first menstrual period: 12 Age at first : 23 Number of full term pregnancies: 2 Age at menopause: 52 Hysterectomy total Oral Contraceptives: NO took for 3 years Estrogen therapy: NO Patient presents for second opinion regarding an inverted nipple. Noticed this about 3-4 weeks ago. KATHERINE Ratliff MD 05/15/2018 2:54 PM Signed Chief Complaint:Patient presents with: Breast Problem: inverted nipple Claire Guevara is a 62 year old female who presents today for evaluation of new onset inversion of her left nipple. She first noticed this several months ago. Her screening mammograms were done on 03/02/2018 at [facility] which showed fibroglandular tissue and a nodule in the retroareolar left breast that was stable. She has had several left breast ultrasounds. The last one being 05/09/2018 which showed a 2 cm cyst in the retroareolar area, BIRADS 2. The reports are available but I do not have the images. She denies palpating any breast masses or axillary adenopathy. No skin changes. No nipple discharge. PAST MEDICAL HISTORY Diagnosis Date - Abdominal pain - Arthritis - Bipolar 1 disorder (HCC) - Chest pain - Constipation - Coronary artery disease - Depression - Diabetes (HCC) - Diarrhea - Disorder of bone and cartilage, unspecified - Dizziness - Ear pain - Generalized anxiety disorder - Headache - History of medical problems PVC - Hyperlipidemia 04/05/2015 - Hypertension - Inverted nipple 04/2018 left - Irregular heartbeat beneign irregular heartbeat - Left pontine stroke (HCC) 07/19/2017 - Mitral valve prolapse - Nausea - Numbness and tingling - Obstructive sleep apnea - ZAID (obstructive sleep apnea) - Osteoporosis - Palpitations - Rheumatoid arthritis(714.0) - TIA (transient ischemic attack) PAST SURGICAL HISTORY Procedure Laterality Date - APPENDECTOMY age 48 at time of gallbladder - APPENDECTOMY 2012 - CHOLECYSTECTOMY 2012 - COLONOSCOP W/ OR W/O BRSH SPEC 08/13 Colonoscopy - COLONOSCOP W/ OR W/O BRSH SPEC 04/03/13 Colonoscopy - COLONOSCOP W/ OR W/O BRSH SPEC 04/08/15 Colonoscopy - EGD W/O OR W/BRUSH/WASH 04/03/13 EGD - FOOT LEFT OP SURGERY 06/2014 - HEART CATHETERIZATION 08/04/08 AND 10/2013 Normal Heart Cath --- [facility], Dr. Ortiz - LAPAROSCOPIC CHOLEYCYSTECTOMY 09/11 Cholecystectomy, lap - PAST SURGICAL HISTORY OF 06/2014 bunionectomy - REMOVAL OF HEEL SPUR Right 02/20 - SIGMOIDOSCOPY FLEX DIAG 09/12/2010 Sigmoidoscopy, flexible - VAGINAL HYSTERECTOMY 2008 FAMILY HISTORY Problem Relation Age of Onset - Hypertension Mother - Diabetes Mother age 60 when on insulin - Heart Mother - Cancer Father PROSTATE AGE 73 - Prostate Cancer Father - Diabetes Maternal Grandfather - Arthritis Sister - Cancer Sister Uterus/Colon cancer with mets - ??? 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[employer] Social History Main Topics Smoking status: Never Smoker Smokeless tobacco: Never Used Alcohol use: No Drug use: No Sexual activity: Yes Partners with: Male control/protection: Surgical Comment: VASECTOMY ALLERGIES Allergen Reactions - Augmentin [Amoxicil* Rash AGE AT [place] 12 AGE AT FIRST 23 2 FAMILY HISTORY OF BREAST CANCER Yes niece triple negative, genetics negative (IF YES) NUMBER OF FIRST DEGREE RELATIVES WITH BREAST CANCER 0 PREVIOUS BREAST BIOPSIES No RACE ANTONY MODEL RISK 5 YEAR 1.4 ANTONY MODEL RISK LIFETIME 6.0 REVIEW OF SYSTEMS GENERAL: No weight loss, malaise or fevers Breast: see HPI Current Outpatient Prescriptions: gabapentin (NEURONTIN) 300 mg capsule TAKE 3 CAPSULES BY MOUTH AT DINNER AND 4 CAPSULES BY MOUTH AT BEDTIME (Patient taking differently: TAKE 2 CAPSULES BY MOUTH AT DINNER AND 3 CAPSULES BY MOUTH AT BEDTIME ) Disp: 630 capsule Rfl: 0 CPAP Please decrease PAP setting to 9/5 cmH2O and provide us with data download in 2 weeks. Disp: 1 Device Rfl: 0 rosuvastatin (CRESTOR) 5 mg tablet 10 mg every other day. Disp: Rfl: fluticasone (FLONASE) 50 mcg/actuation nasal spray Disp: Rfl: VITAMIN B COMPLEX ORAL Take by mouth once daily. Disp: Rfl: methotrexate 2.5 mg tablet Take 2.5 mg by mouth every Sunday. Disp: Rfl: escitalopram oxalate (LEXAPRO) 10 mg tablet Take 10 mg by mouth once daily. Disp: Rfl: famotidine (PEPCID) 20 mg tablet Take 20 mg by mouth twice daily. Disp: Rfl: NITROSTAT 0.4 mg SL tablet Disp: Rfl: aspirin, enteric coated (ASPIRIN, ENTERIC COATED) 81 mg EC tablet Take 81 mg by mouth once daily. Disp: Rfl: MULTI-VITAMIN ORAL Take by mouth. Disp: Rfl: Cholecalciferol, Vitamin D3, (VITAMIN D) 1,000 unit Cap Take 1 capsule by mouth once daily. Disp: Rfl: 0 FOLIC ACID 1 mg ORAL tablet Disp: Rfl: etanercept(ENBREL 50 MG/ML (0.98 ML) SUB-Q SYRINGE) takes once weekly. Disp: Rfl: 0 No current facility-administered medications for this visit. BP 120/80 Pulse 75 Ht 5' 4 (1.63m) Wt 134 lb (60.8kg) LMP 04/11/2005 BMI 22.99 kg/(m2). PHYSICAL EXAMINATION General appearance: alert, well appearing, and in no distress Mental status: alert, oriented to person, place and time Eyes: pupils equal and reactive, extraocular eye movements intact, conjuctiva and sclera clear Ears: bilateral external ear canals normal Nose: normal and patent, no erythema, no discharge Neck: supple, no significant adenopathy Lymphatics: no palpable lymphadenopathy, no hepatosplenomegaly Chest: clear to auscultation, no wheezes, rales or rhonchi, symmetric air entry Heart: normal rate, regular rhythm, normal S1,S2, no murmurs, rubs, clicks or gallops Abdomen:soft,nontender, non distended, no masses or organomegaly Breast Exam: On visual in spection of the breasts finds them to be Breasts: symmetric RIGHT Skin changes: No Nipple retraction:No Axillary adenopathy: No Supraclavicular adenopathy: No Palpable masses: No Tenderness: No Nipple discharge: No LEFT Skin changes: No Nipple retraction:Yes, with slit like opening Axillary adenopathy: No Supraclavicular adenopathy: No Palpable masses: No Tenderness: No Nipple discharge: No Neurological: alert, oriented, normal speech, no focal findings or movement disorder noted Musculoskeletal: no joint tenderness, deformity or swelling Extremities: peripheral pulses normal, no pedal edema, no clubbing or cyanosis Skin: normal coloration and turgor, no rashes, no suspicious skin lesions ASSESSMENT/PLAN Inversion of nipple Ms. Guevara is a 62 year old female with new onset left nipple inversion. Her imaging done at [facility] demonstrated a retroareolar cyst. I have recommended repeating the left breast ultrasound. We discussed a duct excision pending those results. Masha San MD 05/15/2018 2:41 PM Masha San MD 05/15/2018 2:53 PM Written Ms. Guevara is a 62 year old female with new onset left nipple inversion. Her imaging done at [facility] demonstrated a retroareolar cyst. I have recommended repeating the left breast ultrasound. We discussed a duct excision pending those results. PROGRESS Observed: 05/15/2018 Status: COMPLETED Source: [place] 2:41 PM CLINIC OTHER CAMPUS REPOSITORY O ID: [id number] Author: Masha San Service: (none) Author Type: Physician Type: Progress Notes Filed: 05/15/2018 2:54 PM Note Text: Chief Complaint:Patient presents with: Breast Problem: inverted nipple Claire Guevara is a 62 year old female who presents today for evaluation of new onset inversion of her left nipple. She first noticed this several months ago. Her screening mammograms were done on 03/02/2018 at [facility] which showed fibroglandular tissue and a nodule in the retroareolar left breast that was stable. She has had several left breast ultrasounds. The last one being 05/09/2018 which showed a 2 cm cyst in the retroareolar area, BIRADS 2. The reports are available but I do not have the images. She denies palpating any breast masses or axillary adenopathy. No skin changes. No nipple discharge. PAST MEDICAL HISTORY Diagnosis Date - Abdominal pain - Arthritis - Bipolar 1 disorder (HCC) - Chest pain - Constipation - Coronary artery disease - Depression - Diabetes (HCC) - Diarrhea - Disorder of bone and cartilage, unspecified - Dizziness - Ear pain - Generalized anxiety disorder - Headache - History of medical problems PVC - Hyperlipidemia 04/05/2015 - Hypertension - Inverted nipple 04/2018 left - Irregular heartbeat beneign irregular heartbeat - Left pontine stroke (HCC) 07/19/2017 - Mitral valve prolapse - Nausea - Numbness and tingling - Obstructive sleep apnea - ZAID (obstructive sleep apnea) - Osteoporosis - Palpitations - Rheumatoid arthritis(714.0) - TIA (transient ischemic attack) PAST SURGICAL HISTORY Procedure Laterality Date - APPENDECTOMY age 48 at time of gallbladder - APPENDECTOMY 2012 - CHOLECYSTECTOMY 2012 - COLONOSCOP W/ OR W/O [facility] SPEC 08/13 Colonoscopy - COLONOSCOP W/ OR W/O [facility] SPEC 04/03/13 Colonoscopy - COLONOSCOP W/ OR W/O [facility] SPEC 04/08/15 Colonoscopy - EGD W/O OR W/BRUSH/WASH 04/03/13 EGD - FOOT LEFT OP SURGERY 06/2014 - HEART CATHETERIZATION 08/04/08 AND 10/2013 Normal Heart Cath --- [facility], Dr. Ortiz - LAPAROSCOPIC CHOLEYCYSTECTOMY 09/11 Cholecystectomy, lap - PAST SURGICAL HISTORY OF 06/2014 bunionectomy - REMOVAL OF HEEL SPUR Right 02/20 - SIGMOIDOSCOPY FLEX DIAG 09/12/2010 Sigmoidoscopy, flexible - VAGINAL HYSTERECTOMY 2008 FAMILY HISTORY Problem Relation Age of Onset - Hypertension Mother - Diabetes Mother age 60 when on insulin - Heart Mother - Cancer Father PROSTATE AGE 73 - Prostate Cancer Father - Diabetes Maternal Grandfather - Arthritis Sister - Cancer Sister Uterus/Colon cancer with mets - ??? 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[employer] Social History Main Topics Smoking status: Never Smoker Smokeless tobacco: Never Used Alcohol use: No Drug use: No Sexual activity: Yes Partners with: Male control/protection: Surgical Comment: VASECTOMY ALLERGIES Allergen Reactions - Augmentin [Amoxicil* Rash AGE AT [place] 12 AGE AT FIRST 23 2 FAMILY HISTORY OF BREAST CANCER Yes niece triple negative, genetics negative (IF YES) NUMBER OF FIRST DEGREE RELATIVES WITH BREAST CANCER 0 PREVIOUS BREAST BIOPSIES No RACE ANTONY MODEL RISK 4 YEAR 1.4 ANTONY MODEL RISK LIFETIME 6.0 REVIEW OF SYSTEMS GENERAL: No weight loss, malaise or fevers Breast: see HPI Current Outpatient Prescriptions: gabapentin (NEURONTIN) 300 mg capsule TAKE 3 CAPSULES BY MOUTH AT DINNER AND 4 CAPSULES BY MOUTH AT BEDTIME (Patient taking differently: TAKE 2 CAPSULES BY MOUTH AT DINNER AND 3 CAPSULES BY MOUTH AT BEDTIME ) Disp: 630 capsule Rfl: 0 CPAP Please decrease PAP setting to 9/5 cmH2O and provide us with data download in 2 weeks. Disp: 1 Device Rfl: 0 rosuvastatin (CRESTOR) 5 mg tablet 10 mg every other day. Disp: Rfl: fluticasone (FLONASE) 50 mcg/actuation nasal spray Disp: Rfl: VITAMIN B COMPLEX ORAL Take by mouth once daily. Disp: Rfl: methotrexate 2.5 mg tablet Take 2.5 mg by mouth every Sunday. Disp: Rfl: escitalopram oxalate (LEXAPRO) 10 mg tablet Take 10 mg by mouth once daily. Disp: Rfl: famotidine (PEPCID) 20 mg tablet Take 20 mg by mouth twice daily. Disp: Rfl: NITROSTAT 0.4 mg SL tablet Disp: Rfl: aspirin, enteric coated (ASPIRIN, ENTERIC COATED) 81 mg EC tablet Take 81 mg by mouth once daily. Disp: Rfl: MULTI-VITAMIN ORAL Take by mouth. Disp: Rfl: Cholecalciferol, Vitamin D3, (VITAMIN D) 1,000 unit Cap Take 1 capsule by mouth once daily. Disp: Rfl: 0 FOLIC ACID 1 mg ORAL tablet Disp: Rfl: etanercept(ENBREL 50 MG/ML (0.98 ML) SUB-Q SYRINGE) takes once weekly. Disp: Rfl: 0 No current facility-administered medications for this visit. BP 120/80 Pulse 75 Ht 5' 4 (1.63m) Wt 134 lb (60.8kg) LMP 04/11/2005 BMI 22.99 kg/(m2). PHYSICAL EXAMINATION General appearance: alert, well appearing, and in no distress Mental status: alert, oriented to person, place and time Eyes: pupils equal and reactive, extraocular eye movements intact, conjuctiva and sclera clear Ears: bilateral external ear canals normal Nose: normal and patent, no erythema, no discharge Neck: supple, no significant adenopathy Lymphatics: no palpable lymphadenopathy, no hepatosplenomegaly Chest: clear to auscultation, no wheezes, rales or rhonchi, symmetric air entry Heart: normal rate, regular rhythm, normal S1,S2, no murmurs, rubs, clicks or gallops Abdomen:soft,nontender, non distended, no masses or organomegaly Breast Exam: On visual in spection of the breasts finds them to be Breasts: symmetric RIGHT Skin changes: No Nipple retraction:No Axillary adenopathy: No Supraclavicular adenopathy: No Palpable masses: No Tenderness: No Nipple discharge: No LEFT Skin changes: No Nipple retraction:Yes, with slit like opening Axillary adenopathy: No Supraclavicular adenopathy: No Palpable masses: No Tenderness: No Nipple discharge: No Neurological: alert, oriented, normal speech, no focal findings or movement disorder noted Musculoskeletal: no joint tenderness, deformity or swelling Extremities: peripheral pulses normal, no pedal edema, no clubbing or cyanosis Skin: normal coloration and turgor, no rashes, no suspicious skin lesions ASSESSMENT/PLAN Inversion of nipple Ms. Guevara is a 62 year old female with new onset left nipple inversion. Her imaging done at [facility] demonstrated a retroareolar cyst. I have recommended repeating the left breast ultrasound. We discussed a duct excision pending those results. Masha San MD 05/15/2018 2:41 PM CNOV Observed: 05/15/2018 Status: COMPLETED Source: [place] 2:00 PM CLINIC OTHER CAMPUS REPOSITORY Office Visit (AGGBRCR) CLAIRE GUEVARA ([id number]) 1955 F [facility] Date Time Provider Department 05/15/18 2:00 PM [facility] During your visit today, we recorded the following information about you: Pulse Blood pressure Weight Height 75/minute 120/80 60.8 kg 1.626 m Iza Candelaria MA 05/15/2018 2:19 PM Signed Race: Age at first menstrual period: 12 Age at first : 23 Number of full term pregnancies: 2 Age at menopause: 52 Hysterectomy total Oral Contraceptives: NO took for 3 years Estrogen therapy: NO Patient presents for second opinion regarding an inverted nipple. Noticed this about 3-4 weeks ago. KATHERINE Ratliff MD 05/15/2018 2:54 PM Signed Chief Complaint:Patient presents with: Breast Problem: inverted nipple Claire Guevara is a 62 year old female who presents today for evaluation of new onset inversion of her left nipple. She first noticed this several months ago. Her screening mammograms were done on 03/02/2018 at [facility] which showed fibroglandular tissue and a nodule in the retroareolar left breast that was stable. She has had several left breast ultrasounds. The last one being 05/09/2018 which showed a 2 cm cyst in the retroareolar area, BIRADS 2. The reports are available but I do not have the images. She denies palpating any breast masses or axillary adenopathy. No skin changes. No nipple discharge. PAST MEDICAL HISTORY Diagnosis Date - Abdominal pain - Arthritis - Bipolar 1 disorder (HCC) - Chest pain - Constipation - Coronary artery disease - Depression - Diabetes (HCC) - Diarrhea - Disorder of bone and cartilage, unspecified - Dizziness - Ear pain - Generalized anxiety disorder - Headache - History of medical problems PVC - Hyperlipidemia 04/05/2015 - Hypertension - Inverted nipple 04/2018 left - Irregular heartbeat beneign irregular heartbeat - Left pontine stroke (HCC) 07/19/2017 - Mitral valve prolapse - Nausea - Numbness and tingling - Obstructive sleep apnea - ZAID (obstructive sleep apnea) - Osteoporosis - Palpitations - Rheumatoid arthritis(714.0) - TIA (transient ischemic attack) PAST SURGICAL HISTORY Procedure Laterality Date - APPENDECTOMY age 48 at time of gallbladder - APPENDECTOMY 2012 - CHOLECYSTECTOMY 2012 - COLONOSCOP W/ OR W/O BRSH SPEC 08/13 Colonoscopy - COLONOSCOP W/ OR W/O BRSH SPEC 04/03/13 Colonoscopy - COLONOSCOP W/ OR W/O BRSH SPEC 04/08/15 Colonoscopy - EGD W/O OR W/BRUSH/WASH 04/03/13 EGD - FOOT LEFT OP SURGERY 06/2014 - HEART CATHETERIZATION 08/04/08 AND 10/2013 Normal Heart Cath --- [facility], Dr. Ortiz - LAPAROSCOPIC CHOLEYCYSTECTOMY 09/11 Cholecystectomy, lap - PAST SURGICAL HISTORY OF 06/2014 bunionectomy - REMOVAL OF HEEL SPUR Right 02/20 - SIGMOIDOSCOPY FLEX DIAG 09/12/2010 Sigmoidoscopy, flexible - VAGINAL HYSTERECTOMY 2008 FAMILY HISTORY Problem Relation Age of Onset - Hypertension Mother - Diabetes Mother age 60 when on insulin - Heart Mother - Cancer Father PROSTATE AGE 73 - Prostate Cancer Father - Diabetes Maternal Grandfather - Arthritis Sister - Cancer Sister Uterus/Colon cancer with mets - ??? 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[employer]* Social History Main Topics Smoking status: Never Smoker Smokeless tobacco: Never Used Alcohol use: No Drug use: No Sexual activity: Yes Partners with: Male control/protection: Surgical Comment: VASECTOMY ALLERGIES Allergen Reactions - Augmentin [Amoxicil* Rash AGE AT MENARCHE 12 AGE AT FIRST 23 2 FAMILY HISTORY OF BREAST CANCER Yes niece triple negative, genetics negative (IF YES) NUMBER OF FIRST DEGREE RELATIVES WITH BREAST CANCER 0 PREVIOUS BREAST BIOPSIES No RACE ANTONY MODEL RISK 5 YEAR 1.4 ANTONY MODEL RISK LIFETIME 6.0 REVIEW OF SYSTEMS GENERAL: No weight loss, malaise or fevers Breast: see HPI Current Outpatient Prescriptions: gabapentin (NEURONTIN) 300 mg capsule TAKE 3 CAPSULES BY MOUTH AT DINNER AND 4 CAPSULES BY MOUTH AT BEDTIME (Patient taking differently: TAKE 2 CAPSULES BY MOUTH AT DINNER AND 3 CAPSULES BY MOUTH AT BEDTIME ) Disp: 630 capsule Rfl: 0 CPAP Please decrease PAP setting to 9/5 cmH2O and provide us with data download in 2 weeks. Disp: 1 Device Rfl: 0 rosuvastatin (CRESTOR) 5 mg tablet 10 mg every other day. Disp: Rfl: fluticasone (FLONASE) 50 mcg/actuation nasal spray Disp: Rfl: VITAMIN B COMPLEX ORAL Take by mouth once daily. Disp: Rfl: methotrexate 2.5 mg tablet Take 2.5 mg by mouth every Sunday. Disp: Rfl: escitalopram oxalate (LEXAPRO) 10 mg tablet Take 10 mg by mouth once daily. Disp: Rfl: famotidine (PEPCID) 20 mg tablet Take 20 mg by mouth twice daily. Disp: Rfl: NITROSTAT 0.4 mg SL tablet Disp: Rfl: aspirin, enteric coated (ASPIRIN, ENTERIC COATED) 81 mg EC tablet Take 81 mg by mouth once daily. Disp: Rfl: MULTI-VITAMIN ORAL Take by mouth. Disp: Rfl: Cholecalciferol, Vitamin D3, (VITAMIN D) 1,000 unit Cap Take 1 capsule by mouth once daily. Disp: Rfl: 0 FOLIC ACID 1 mg ORAL tablet Disp: Rfl: etanercept(ENBREL 50 MG/ML (0.98 ML) SUB-Q SYRINGE) takes once weekly. Disp: Rfl: 0 No current facility-administered medications for this visit. BP 120/80 Pulse 75 Ht 5' 4 (1.63m) Wt 134 lb (60.8kg) LMP 04/11/2005 BMI 22.99 kg/(m2). PHYSICAL EXAMINATION General appearance: alert, well appearing, and in no distress Mental status: alert, oriented to person, place and time Eyes: pupils equal and reactive, extraocular eye movements intact, conjuctiva and sclera clear Ears: bilateral external ear canals normal Nose: normal and patent, no erythema, no discharge Neck: supple, no significant adenopathy Lymphatics: no palpable lymphadenopathy, no hepatosplenomegaly Chest: clear to auscultation, no wheezes, rales or rhonchi, symmetric air entry Heart: normal rate, regular rhythm, normal S1,S2, no murmurs, rubs, clicks or gallops Abdomen:soft,nontender, non distended, no masses or organomegaly Breast Exam: On visual in spection of the breasts finds them to be Breasts: symmetric RIGHT Skin changes: No Nipple retraction:No Axillary adenopathy: No Supraclavicular adenopathy: No Palpable masses: No Tenderness: No Nipple discharge: No LEFT Skin changes: No Nipple retraction:Yes, with slit like opening Axillary adenopathy: No Supraclavicular adenopathy: No Palpable masses: No Tenderness: No Nipple discharge: No Neurological: alert, oriented, normal speech, no focal findings or movement disorder noted Musculoskeletal: no joint tenderness, deformity or swelling Extremities: peripheral pulses normal, no pedal edema, no clubbing or cyanosis Skin: normal coloration and turgor, no rashes, no suspicious skin lesions ASSESSMENT/PLAN Inversion of nipple Ms. Guevara is a 62 year old female with new onset left nipple inversion. Her imaging done at [facility] demonstrated a retroareolar cyst. I have recommended repeating the left breast ultrasound. We discussed a duct excision pending those results. Masha San MD 05/15/2018 2:41 PM Masha San MD 05/15/2018 2:53 PM Written Ms. Guevara is a 62 year old female with new onset left nipple inversion. Her imaging done at [facility] demonstrated a retroareolar cyst. I have recommended repeating the left breast ultrasound. We discussed a duct excision pending those results. Street Light Lamp Cleaner: Facesheet ID: [id number] 05/15/2018 12:00 AM Author: MEL PROVIDER Signed by [facility] PROVIDER on 05/15/2018 at 1:35 PM Document text: Display document [id number] only Referring Provider: JB SHARIF [[id number]] Allergies As of Date: 05/15/2018 Noted Allergy Reaction AUGMENTIN (AMOXICILLIN-POT CLAVUL*05/04/2017 2 - Rash Date Reviewed: 05/15/2018 Reviewed by: Masha San - Fully Assessed Reason for Visit: Breast Problem [16] Cmt: inverted nipple Primary Visit Diagnosis:Inversion of nipple [N64.59] Order(s):[employer] [[id number]] Order #: [id number] FUTURE Prescriptions as of 05/15/2018 Sig: GABAPENTIN 300 MG CAPSULE TAKE 3 CAPSULES BY MOUTH AT D* Patient taking differently: TAKE 2 CAPSULES BY MOUTH AT D* CPAP Please decrease PAP setting t* ROSUVASTATIN 5 MG TABLET 10 mg every other day. FLUTICASONE 50 MCG/ACTUATION * VITAMIN B COMPLEX ORAL Take by mouth once daily. METHOTREXATE SODIUM 2.5 MG TA* Take 2.5 mg by mouth every Fr* ESCITALOPRAM 10 MG TABLET Take 10 mg by mouth once shane* FAMOTIDINE 20 MG TABLET Take 20 mg by mouth twice tracy* NITROSTAT 0.4 MG SUBLINGUAL T* ASPIRIN 81 MG TABLET,DELAYED * Take 81 mg by mouth once shane* MULTI-VITAMIN ORAL Take by mouth. * CHOLECALCIFEROL (VITAMIN D3) * Take 1 capsule by mouth once * * FOLIC ACID 1 MG TABLET * ENBREL 50 MG/ML (0.98 ML) SUB* takes once weekly. Problem List As Of Date 05/15/2018 Noted Resolved Rheumatoid arthritis (HCC) [M06.9] More... More... More... Abnormal Stress Test [R94.39] INVALID FOR* More... 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 PVC's INVALID FOR* More... Osteopenia [M85.80] INVALID FOR* Routine Gynecological Examination [Z01.419] INVALID FOR* Class: Chronic More... GERD (Gastroesophageal Reflux Disease) [K21.9] INVALID FOR* More... Impaired Fasting Glucose [R73.01] INVALID FOR* Neoplasm of uncertain behavior of skin [D48.5] INVALID FOR* Irritable bowel syndrome with diarrhea [K58.0] INVALID FOR* Hyperlipidemia [E78.5] INVALID FOR* ZAID (obstructive sleep apnea) [G47.33] INVALID FOR* Multiple thyroid nodules [E04.2] INVALID FOR* TIA (transient ischemic attack) [G45.9] INVALID FOR* Anxiety neurosis [F41.1] INVALID FOR* RBBB [I45.10] INVALID FOR* Micrognathia [M26.09] INVALID FOR* Family history of colon cancer [Z80.0] INVALID FOR*04/08/2015 Migraine aura without headache [G43.109] INVALID FOR* Left pontine stroke (HCC) [I63.50] INVALID FOR* Cerebrovascular small vessel disease [I67.9] INVALID FOR* Inversion of nipple [N64.59] INVALID FOR* More... Visit Notes: >> Iza Candelaria SunMay 15, 2018 1:43 PM Status: Signed Race: Age at first menstrual period: 12 Age at first : 23 Number of full term pregnancies: 2 Age at menopause: 52 Hysterectomy total Oral Contraceptives: NO took for 3 years Estrogen therapy: NO Patient presents for second opinion regarding an inverted nipple. Noticed this about 3-4 weeks ago. Iza Candelaria MA Medications Discontinued During This Encounter escitalopram oxalate (LEXAPRO) 20 mg* 05/15/2018 Class: Historical Med Route: ORAL Sig: Take 20 mg by mouth once daily. Disc: Dosage adjustment ondansetron (ZOFRAN) 4 mg tablet 10 t* 2 02/05/2018 05/15/2018 Route: ORAL Sig: Take 1 tablet by mouth once daily as needed (for nausea.). Patient not taking: Reported on 05/15/2018 Disc: Discontinued by another Health Care Provider Level of Service: NEW PATIENT VISIT LEVEL 3 [[id number]] Disposition: Return in about 1 week (around 05/22/2018). Follow-up and Disposition History Recorded Questionnaire: AG BRCR ANTONY MODEL SCORING AGE AT MENARCHE -> 12 AGE AT FIRST -> 23 Cmt: 2 FAMILY HISTORY OF BREAST CANCER -> Yes Cmt: niece triple negative, genetics negative (IF YES) NUMBER OF FIRST DEGREE RELATIVES WITH BREAST CANCER -> 0 PREVIOUS BREAST BIOPSIES -> No RACE -> ANTONY MODEL RISK 5 YEAR -> 1.4 ANTONY MODEL RISK LIFETIME -> 6.0 Encounter Status:Closed by MASHA SAN MD on 05/15/18 BREAST LIMITED Observed: 05/09/2018 Status: F Source: [place] 9:26 [facility] REPOSITORY [facility] Imaging Services [address] [place] [address] Breast Limited Unilateral MR#: [id number] Acct: [id number] Name: CLAIRE GUEVARA Rep #: [id number] : 1955 F 62 From: Dave Lutz MD PCP: Miko Avila MD Status: REG CLI Study: Breast Limited Unilateral Date of Exam: 05/09/18 Exam# [id number] Ordering Dr: Jb Sharif MD STUDY: ULTRASOUND BREAST - LEFT REASON FOR EXAM: Female, 62 years old. Left nipple inversion. TECHNIQUE: Axial and longitudinal images of the LEFT breast were performed with a high resolution ultrasound transducer. COMPARISON: Comparison is made with prior ultrasound of the left breast dated March 15, 2018 and prior mammogram dated March 02, 2018. FINDINGS: LEFT Breast: There is a 5 mm x 20 mm x 2 mm cyst in the retroareolar region of the breast. There is also evidence of dilated retroareolar ducts. US/Breast Limited Unilateral IMPRESSION: Stable sonographic examination demonstrated a small retroareolar cyst and dilated ducts. ASSESSMENT CATEGORY: BIRADS Category 2: Benign. A letter regarding these results will be sent to the patient by the facility within 30 days. Electronically Signed: Dave Lutz MD at 10:08 EST Tel [phone], Service support , CC: Jb Sharif MD; Miko Avila MD Van Loader: Signed SURGERY VISIT REPORT Observed: 05/06/2018 Status: F Source: [place] 8:48 AM [facility] [address] [place] [address] OFFICE VISIT Date of Service: 05/06/18 MR#: [id number] Acct: [id number] Name: CLAIRE GUEVARA Rep #: [id number] : 1955 Provider: Jb Sharif MD Age/Sex: 62/F Location: [facility] Status: Signed Intake Intake Visit Reasons: 2 wk FU nipple changes Aircraft Quality Control Inspector Required: No Is patient in pain?: No Allergies No Known Allergies Allergy (Verified 05/06/18 08:29) Medications Cholecalciferol (VIT D3) [Vitamin D3] 1 tab PO DAILY 11/14/14 [History Confirmed 05/06/18] Escitalopram Oxalate [Lexapro] 10 mg PO QHS 11/14/14 [History Confirmed 05/06/18] Etanercept [Enbrel] 50 mg SQ TU 11/14/14 [History Confirmed 05/06/18] Folic Acid 1 mg PO DAILY@0800 11/14/14 [History Confirmed 05/06/18] Multivitamins,Ther W-Minerals [Multivitamin With Minerals] 1 tab PO DAILY 11/14/14 [History Confirmed 05/06/18] Famotidine [Pepcid] 20 mg PO DAILY 12/11/16 [History Confirmed 05/06/18] Flonase Allergy Relief 2 spray NASAL DAILY 12/11/16 [History Confirmed 05/06/18] Gabapentin [Neurontin] 1,200 mg PO QHS 12/11/16 [History Confirmed 05/06/18] Gabapentin [Neurontin] 900 mg PO DINNER 12/11/16 [History Confirmed 05/06/18] Magnesium Oxide [Magnesium] 400 mg PO BID 12/11/16 [History Confirmed 05/06/18] Aspirin [Aspirin, Baby] 81 mg PO DAILY@0800 #90 tab.chew 12/12/16 [Rx Confirmed 05/06/18] methotrexate sodium 2.5 mg tablet 7.5 mg PO FR tab 03/13/18 [History Confirmed 05/06/18] [facility] Medical History TIA (transient ischemic attack) (Acute) Esophageal reflux (Chronic) IBS (irritable bowel syndrome) (Chronic) Osteoporosis (Chronic) Restless legs syndrome (RLS) (Chronic) Rheumatoid arthritis (Chronic) Anxiety and depression (Chronic) Borderline diabetes (Chronic) Dyslipidemia (Chronic) Immunosuppressed status (Chronic) 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, acute episode, 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) TIA (transient ischemic attack) (Acute) Left-sided weakness (Acute) Obstructive sleep apnea (Chronic) Right bundle branch block (Chronic) Colon polyps (Chronic) Leukopenia (Acute) Surgical History H/O foot surgery (Acute) H/O left heart catheterization by cutdown (Acute) S/P hysterectomy (Acute) S/P laparoscopic cholecystectomy (Acute) Family History Mother Diabetes Heart disease Hypertension CAD (coronary artery disease) Sister Breast cancer Daughter CVA (cerebral vascular accident) Diabetes Social History Smoking Status: Never smoker alcohol intake: never substance use type: does not use HPI HPI HPI: CLAIRE GUEVARA, is a 62 F who presents to the office today for follow-up for left nipple inversion. The patient's central nipple is still inverted. She is not having any discharge or discomfort. ROS General General: No weight change or fatigue Cardio Cardiovascular: No murmur, pacemaker, heart disease, atrial fibrillation, high blood pressure, heart attack, heart stent, palpitations, shortness of breat with exertion or chest pain Psych Psychiatric: No depression or anxiety Resp Respiratory: No shortness of breath, No sleep apnea, No cough, No COPD, No asthma, No emphysema, No wheezing Gastro Gastrointestinal: No abdominal pain, No nausea or vomiting, No diarrhea, No constipation, No blood in stool, No acid reflux, No hemorrhoids, No ulcers, No gallbladder problem, No black,tarry stools Ruben Hematologic: No blood thinners Exam Const General: cooperative Orientation: alert, oriented x3 Chest Other: Patient still has left nipple central inversion. There is no discharge or palpable masses Resp Effort AND Inspection: normal respiratory effort Auscultation: clear to auscultation bilaterally Cardio Rate: regular rate Rhythm: regular rhythm Heart Sounds: no murmurs GI Inspection: non-distended Palpation: soft, nontender Assessment AND Plan Problems 1. Inversion of nipple N64.59 Plan 1. Patient still having left nipple inversion. I will order an ultrasound to rule out any masses causing this. If there are no masses behind the nipple I would recommend a second opinion from a breast surgeon. This may be physiologic but I would like to make sure that a breast surgeon agrees. Jb Sharif MD Pager: [facility] [address] [place] [address], [address] [place] [phone] Office: Orders Orders: Coding Level of Care Code Off vis,est,level 2 Diagnoses Inversion of nipple N64.59 05/06/18 0848 <Electronically signed by Jb Sharif MD> Date Jb Sharif MD Cosigner Signature: Date (if applicable) CC: Miko Avila MD CBC Collected: 05/03/2018 Status: F Source: [place] 11:11 AM [facility] REPOSITORY TYPE CODE TESTS RESULT OUT OF RANGE REFERENCE UNITS LAB CBC(LOINC) CBC Result Comment: CBC-COMPLETE BLOOD COUNT LAB WBC(LOINC) 4.5 - 10.8 x 10EE3/UL WBC 4.8 LAB RBC(LOINC) 4.10 - x 10EE6/UL 5.30 RBC 4.32 LAB HEMOGLOBIN(LOINC) 12.0 - g/dl 16.0 HEMOGLOBIN 13.7 LAB HEMATOCRIT(LOINC) 34.0 - % 46.0 HEMATOCRIT 40.3 LAB MCV(LOINC) 80 - 99 fl MCV 93 LAB MCH(LOINC) 27 - 33 pg MCH 32 LAB MCHC(LOINC) 32 - 36 X10 3 MCHC 34 LAB RDW/CV(LOINC) 12.0 - % 15.6 RDW/CV 13.8 LAB PLATELET(LOINC) 150 - 450 x10EE3/UL PLATELET Low 146 LAB MPV(LOINC) 6.6 - 10.5 fl MPV 8.4 Result Comment: AUTOMATED DIFFERENTIAL LAB NEUT %(LOINC) 46.0 - 76.0 % NEUT % 47.4 LAB LYMPH %(LOINC) 20.0 - 45.0 % LYMPH % 31.0 LAB MONOS %(LOINC) 0.0 - 10.0 % MONOS % High 15.2 LAB EO %(LOINC) 0.0 - 7.0 % EO % 6.0 LAB BASO %(LOINC) 0.0 - 2.0 % BASO % 0.4 LAB Lymph #(LOINC) 0.80 - 2.80 x10EE3/U L Lymph # 1.50 LAB Neut #(LOINC) 1.50 - 7.10 x10EE3/U L Neut # 2.30 LAB Ramsey #(LOINC) 0.20 - 1.00 x10EE3/U L Ramsey # 0.70 LAB EO #(LOINC) 0.00 - 0.50 x10EE3/U L EO # 0.30 LAB Baso #(LOINC) 0.00 - 0.10 x10EE3/U L Baso # 0.00 LAB MANUAL DIFF(LOINC) MANUAL DIFF N/A LAB MORPHOLOGY(LOINC ) MORPHOLOGY N/A Result Comment: {CD] Performed By: #### [id number] #### [place] [address] SEDRATE Collected: 05/03/2018 Status: F Source: [place] 11:11 AM [facility] REPOSITORY TYPE CODE TESTS RESULT OUT OF REFERENCE UNITS RANGE LAB SEDRATE(BRYCE 0 - 30 mm/hr NC) SEDRATE 14 Performed By: #### [id number] #### [place] [address] SGOT (AST) Collected: 05/03/2018 Status: F Source: [place] 11:11 [facility] REPOSITORY TYPE CODE TESTS RESULT OUT OF RANGE REFERENCE UNITS LAB AST/SGOT(LO 13 - 39 U/L INC) AST/SGOT 21 Performed By: #### [id number] #### [place] [address] SGPT (ALT) Collected: 05/03/2018 Status: F [facility]11 [facility] REPOSITORY TYPE CODE TESTS RESULT OUT OF RANGE REFERENCE UNITS LAB ALT/SGPT(LO 8 - 35 U/L INC) ALT/SGPT 13 Performed By: #### [id number] #### [place] [address] ALBUMIN PLASMA Collected: 05/03/2018 Status: F [facility]11 [facility] REPOSITORY TYPE CODE TESTS RESULT OUT OF REFERENCE UNITS RANGE LAB ALBUMIN(BRYCE 3.4 - 4.8 g/dL HI) ALBUMIN 4.0 Performed By: #### [id number] #### [place] [address] C-REACTIVE PROTEIN Collected: 05/03/2018 Status: F Source: [place] 11:11 [facility] REPOSITORY TYPE CODE TESTS RESULT OUT OF RANGE REFERENCE UNITS LAB CRP(LOINC) 0.00 - 1.00 mg/dl CRP 0.10 Performed By: #### [id number] #### [place] [id number] BUN/CREAT EGFR Collected: 05/03/2018 Status: F Source: [place] (NON-) 11:11 [facility] REPOSITORY TYPE CODE TESTS RESULT OUT OF RANGE REFERENCE UNITS LAB BUN/CREAT eGFR (NON-MAAME N BUN/CREAT [place])(L eGFR OINC) (NON-) Result Comment: BUN/CREATININE eGFR NON-) LAB BUN(LOINC) 6 - 20 mg/dl BUN 14 LAB CREATININE(LOINC) 0.6 - 1.2 mg/dl CREATININE 0.7 LAB AGE(LOINC) years AGE 62 LAB eGFR(LOINC) 60 - 999 ML/MINUTE eGFR >60 Result Comment: ACCORDING TO THE NATIONAL KIDNEY DISEASE EDUCATION PROGRAM(NKDE),A NORMAL eGFR IS A VALUE GREATER THAN OR EQUAL TO 60 ML/MIN/1.73 SQ METERS.KIDNEY DISEASE MAY BE PRESENT WHEN THE eGFR IS LESS THAN 60 ML/MIN/1.73 SQ METERS.VALUES LESS THEN 15 ML/MIN/1.73 SQ METERS INDICATE KIDNEY FAILURE.THIS TEST SHOULD ONLY BE USED FOR PATIENTS 18 AND OLDER. Performed By: #### [id number] #### [facility] [place],[address] [place] [id number] SURGERY VISIT REPORT Observed: 04/24/2018 Status: F Source: [place] 9:09 AM [facility] [address] [place] [address] [address] [place] [phone] OFFICE VISIT Date of Service: 04/22/18 MR#: [id number] Acct: [id number] Name: CLAIRE GUEVARA Antoine Rep #: [id number] : 1955 Provider: Jb Sharif MD Age/Sex: 62/F Location: [facility] Status: Signed Intake Intake Visit Reasons: nipple changes Aircraft Quality Control Inspector Required: No Is patient in pain?: No (Some tenderness) Allergies No Known Allergies Allergy (Verified 04/22/18 08:39) Medications Cholecalciferol (VIT D3) [Vitamin D3] 1 tab PO DAILY 11/14/14 [History Confirmed 04/22/18] Escitalopram Oxalate [Lexapro] 10 mg PO QHS 11/14/14 [History Confirmed 04/22/18] Etanercept [Enbrel] 50 mg SQ TU 11/14/14 [History Confirmed 04/22/18] Folic Acid 1 mg PO DAILY@0800 11/14/14 [History Confirmed 04/22/18] Multivitamins,Ther W-Minerals [Multivitamin With Minerals] 1 tab PO DAILY 11/14/14 [History Confirmed 04/22/18] Famotidine [Pepcid] 20 mg PO DAILY 12/11/16 [History Confirmed 04/22/18] Flonase Allergy Relief 2 spray NASAL DAILY 12/11/16 [History Confirmed 04/22/18] Gabapentin [Neurontin] 1,200 mg PO QHS 12/11/16 [History Confirmed 04/22/18] Gabapentin [Neurontin] 900 mg PO DINNER 12/11/16 [History Confirmed 04/22/18] Magnesium Oxide [Magnesium] 400 mg PO BID 12/11/16 [History Confirmed 04/22/18] Aspirin [Aspirin, Baby] 81 mg PO DAILY@0800 #90 tab.chew 12/12/16 [Rx Confirmed 04/22/18] methotrexate sodium 2.5 mg tablet 7.5 mg PO FR tab 03/13/18 [History Confirmed 04/22/18] [facility] Medical History TIA (transient ischemic attack) (Acute) Esophageal reflux (Chronic) IBS (irritable bowel syndrome) (Chronic) Osteoporosis (Chronic) Restless legs syndrome (RLS) (Chronic) Rheumatoid arthritis (Chronic) Anxiety and depression (Chronic) Borderline diabetes (Chronic) Dyslipidemia (Chronic) Immunosuppressed status (Chronic) 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, acute episode, 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) TIA (transient ischemic attack) (Acute) Left-sided weakness (Acute) Obstructive sleep apnea (Chronic) Right bundle branch block (Chronic) Colon polyps (Chronic) Leukopenia (Acute) Surgical History H/O foot surgery (Acute) H/O left heart catheterization by cutdown (Acute) S/P hysterectomy (Acute) S/P laparoscopic cholecystectomy (Acute) Family History Mother Diabetes Heart disease Hypertension CAD (coronary artery disease) Sister Breast cancer Daughter CVA (cerebral vascular accident) Diabetes Social History Smoking Status: Never smoker alcohol intake: never substance use type: does not use HPI HPI HPI: CLAIRE GUEVARA, is a 62 F who presents to the office today for left nipple inversion. The patient notes that for the last 7-10 days the inner most portion of her left nipple has been inverted. There has been no discharge or increased pain. ROS General General: No weight change or fatigue Breast Additional Details: Left nipple inversion Cardio Cardiovascular: No murmur, pacemaker, heart disease, atrial fibrillation, high blood pressure, heart attack, heart stent, palpitations, shortness of breat with exertion or chest pain Psych Psychiatric: No depression or anxiety Resp Respiratory: No shortness of breath, No sleep apnea, No cough, No COPD, No asthma, No emphysema, No wheezing Gastro Gastrointestinal: No abdominal pain, No nausea or vomiting, No diarrhea, No constipation, No blood in stool, No acid reflux, No hemorrhoids, No ulcers, No gallbladder problem, No black,tarry stools Ruben Hematologic: No blood thinners Exam Const General: cooperative Orientation: alert, oriented x3 Chest Other: The middle part of the left breast is dimpled inward. The rest of the nipple is normal. There is no discharge. There are no palpable masses behind the nipple. Resp Effort AND Inspection: normal respiratory effort Auscultation: clear to auscultation bilaterally Cardio Rate: regular rate Rhythm: regular rhythm Heart Sounds: no murmurs GI Inspection: non-distended Palpation: soft, nontender Assessment AND Plan Problems 1. Inversion of nipple N64.59 Plan 1. The patient has a small cyst in the retroareolar area of the left breast. This was followed with serial ultrasounds and was unchanged. He was given a BI-RADS score of 2. The patient currently has some nipple inversion of the left with no discharge. I would like to see her back in 2 weeks to see if this resolves or if it is persistent. If it is persistent I would repeat an ultrasound to see if there are any changes behind the nipple. Jb Sharif MD Pager: [facility] [address] [place] [address], [address] [place] [address] Office: Coding Level of Care Code Off vis,est,level 3 Diagnoses Inversion of nipple N64.59 04/24/18 0909 <Electronically signed by Jb Sharif MD> Date Jb Sharif MD Cosigner Signature: Date (if applicable) CC: Miko Avila MD BREAST LIMITED Observed: 03/15/2018 Status: F Source: [place] [facility] 9:23 AM [facility] REPOSITORY [facility] Imaging Services [address] [address] Breast Limited Unilateral MR#: [id number] Acct: [id number] Name: CLAIRE GUEVARA Rep #: [id number] : 1955 F 62 From: Alicia Doherty MD PCP: Miko Avila MD Status: REG CLI Study: Breast Limited Unilateral Date of Exam: 03/15/18 Exam# [id number] Ordering Dr: Jb Sharif MD STUDY: ULTRASOUND BREAST - LEFT REASON FOR EXAM: Female, 62 years old. LT ABN MAMM INTERMITTENT LEFT RETROARIOLAR PAIN POSTNMENOPAUSAL TECHNIQUE: Axial and longitudinal images of the LEFT breast were performed with a high resolution ultrasound transducer. COMPARISON: None. FINDINGS: LEFT Breast: There is a lesion #1 in the retroareolar region. The lesion measures 0.3 x 0.3 x 0.4 cm in size most likely represents a cyst. Posterior Enhancement: Yes. Posterior Shadowing: None. Margins: Sharp and smooth. Echogenicity: Anechoic. Compression effect on Shape: No change. US/Breast Limited Unilateral IMPRESSION: Benign retroareolar cyst measures 4 mm in greatest diameter. ASSESSMENT CATEGORY: BIRADS Category 2: Benign. A letter regarding these results will be sent to the patient by the facility within 30 days. Electronically Signed: Alicia Doherty MD at 12:45 EDT Tel , Service support , CC: Jb Sharif MD; Miko Avila MD Van Loader: Signed SURGERY VISIT REPORT Observed: 03/13/2018 Status: F Source: [place] 11:34 AM [facility] REPOSITORY [facility] [address] [place] [address] OFFICE VISIT Date of Service: 03/13/18 MR#: [id number] Acct: [id number] Name: CLAIRE GUEVARA Rep #: [id number] : 1955 Provider: Jb Sharif MD Age/Sex: 62/F Location: [facility] Status: Signed Intake Vital Signs03/13/18 Height 5 ft 3 in 03/13/18 Weight: 135 lb 03/13/18 Body Mass Index (BMI) 23.9 Intake Visit Reasons: Lt Breast Nodule/Pain Mammo [facility] 03/05 [employer] Quality Control Inspector Required: No Is patient in pain?: No Allergies No Known Allergies Allergy (Verified 03/13/18 08:34) Medications Cholecalciferol (VIT D3) [Vitamin D3] 1 tab PO DAILY 11/14/14 [History Confirmed 03/13/18] Escitalopram Oxalate [Lexapro] 10 mg PO QHS 11/14/14 [History Confirmed 03/13/18] Etanercept [Enbrel] 50 mg SQ TU 11/14/14 [History Confirmed 03/13/18] Folic Acid 1 mg PO DAILY@0800 11/14/14 [History Confirmed 03/13/18] Multivitamins,Ther W-Minerals [Multivitamin With Minerals] 1 tab PO DAILY 11/14/14 [History Confirmed 03/13/18] Famotidine [Pepcid] 20 mg PO DAILY 12/11/16 [History Confirmed 03/13/18] Flonase Allergy Relief 2 spray NASAL DAILY 12/11/16 [History Confirmed 03/13/18] Gabapentin [Neurontin] 1,200 mg PO QHS 12/11/16 [History Confirmed 03/13/18] Gabapentin [Neurontin] 900 mg PO DINNER 12/11/16 [History Confirmed 03/13/18] Magnesium Oxide [Magnesium] 400 mg PO BID 12/11/16 [History Confirmed 03/13/18] Aspirin [Aspirin, Baby] 81 mg PO DAILY@0800 #90 tab.chew 12/12/16 [Rx Confirmed 03/13/18] methotrexate sodium 2.5 mg tablet 7.5 mg PO FR tab 03/13/18 [History Confirmed 03/13/18] PFSH Medical History TIA (transient ischemic attack) (Acute) Esophageal reflux (Chronic) IBS (irritable bowel syndrome) (Chronic) Osteoporosis (Chronic) Restless legs syndrome (RLS) (Chronic) Rheumatoid arthritis (Chronic) Anxiety and depression (Chronic) Borderline diabetes (Chronic) Dyslipidemia (Chronic) Immunosuppressed status (Chronic) 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, acute episode, 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) TIA (transient ischemic attack) (Acute) Left-sided weakness (Acute) Obstructive sleep apnea (Chronic) Right bundle branch block (Chronic) Colon polyps (Chronic) Leukopenia (Acute) Surgical History H/O foot surgery (Acute) H/O left heart catheterization by cutdown (Acute) S/P hysterectomy (Acute) S/P laparoscopic cholecystectomy (Acute) Family History Mother Diabetes Heart disease Hypertension CAD (coronary artery disease) Sister Breast cancer Daughter CVA (cerebral vascular accident) Diabetes Social History Smoking Status: Never smoker alcohol intake: never HPI HPI HPI: CLAIRE GUEVARA, is a 62 F who presents to the office today for left breast abnormal ultrasound. The patient reports that she has been having left breast pain for about a month. She says the pain comes and goes. She is also experienced some crusting on the left nipple with no discharge from the right nipple. She says she is not having any noticeable drainage or bloody drainage. She had a mammogram a year ago which showed a small density in the left breast and an ultrasound showed small cyst. She had a repeat mammogram which showed that this density has not changed in size. The patient reports that she has a sister who of breast cancer in her 60s as well as a niece who is positive BRCA who recently underwent total hysterectomy as well as bilateral mastectomy. She has never been genetically tested. ROS General General: No weight change or fatigue Breast Breast: Yes abnormal mammogram, abnormal US and breast pain; no nipple discharge, left breast lump, right breast lump or breast enlargement Cardio Cardiovascular: No murmur, pacemaker, heart disease, atrial fibrillation, high blood pressure, heart attack, heart stent, palpitations, shortness of breat with exertion or chest pain Psych Psychiatric: Yes anxiety; no depression Resp Respiratory: No shortness of breath, No sleep apnea, No cough, No COPD, No asthma, No emphysema, No wheezing Gastro Gastrointestinal: No abdominal pain, No nausea or vomiting, No diarrhea, No constipation, No blood in stool, No acid reflux, No hemorrhoids, No ulcers, No gallbladder problem, No black,tarry stools Ruben Hematologic: No blood thinners Exam Const General: cooperative Orientation: alert, oriented x3 Chest Breast Palpation: No nipple discharge Resp Effort AND Inspection: normal respiratory effort Auscultation: clear to auscultation bilaterally Cardio Rate: regular rate Rhythm: regular rhythm Heart Sounds: no murmurs GI Inspection: non-distended Palpation: soft, nontender Assessment AND Plan Problems 1. Abnormality of left breast on screening mammogram R92.8 Plan 1. I reviewed the patient's mammograms from 1 year ago and the recent mammogram with her. The density in the left breast appears unchanged. I performed an ultrasound in the office and I do find that area of concern. I am not sure if it is a blocked duct as it does not appear perfectly round. 2. I will send the patient for repeat ultrasound to have an official read of this area. I do not believe the first ultrasound localized this area as it does not appear the same as on the official ultrasound. 3. I did offer the patient a biopsy of this area if she wants but I would like to get the ultrasound first. This may be unnecessary and if the ultrasound appears benign I will not do the biopsy. I explained the risks of bleeding and infection. Jb Sharif MD Pager: [facility] [address] [place] [address], [address] [place] [address] Office: Orders Orders: Coding Level of Care Code Off vis,new,level 3 Diagnoses Abnormality of left breast on screening mammogram R92.8 03/13/18 1134 <Electronically signed by Jb Sharif MD> Date Jb Sharif MD [facility] Signature: Date (if applicable) CC: Barbara Shields MD; Miko Avila MD SCREENING MAMM (CAD), Observed: 03/02/2018 Status: F Source: [place] 8:27 AM [facility] REPOSITORY [facility] Imaging Services [address] [place] [address] SCREENING MAMM (CAD), BILAT MR#: [id number] Acct: [id number] Name: CLAIRE GUEVARA Rep #: [id number] : 1955 F 62 From: Dave Lutz MD PCP: Miko Avila MD Status: REG CLI Study: SCREENING MAMM (CAD), BILAT Date of Exam: 03/02/18 Exam# [id number] Ordering Dr: Barbara Shields MD MAMMOGRAPHY - BILATERAL SCREENING REASON FOR EXAM: Female, 62 years old. Routine annual screening examination. PERTINENT HISTORY: Sister with breast cancer. TECHNIQUE: Digital bilateral breast giovanni (3D mammographic acquisition) in the CC and MLO projections. 2-D mediolateral oblique (MLO) and craniocaudad (CC) views of both breasts were obtained. CAD: Full Field Digital Mammography with Computer Added Detection was performed. COMPARISON: Comparison is made with prior study dated January 10, 2017 and September 03, 2015. FINDINGS: Breast Composition: There are scattered areas of fibroglandular density. There are no dominant masses or suspicious calcifications. Stable 4.2 mm x 4 mm well-defined nodule in the medial retroareolar region of the left breast. This was demonstrated to be a small cyst on prior sonogram dated August 01, 2017. No other significant abnormalities are identified. There has been no significant change since the prior study. BI/SCREENING MAMM (CAD), BILAT IMPRESSION: Stable bilateral screening mammogram. Yearly follow-up mammogram recommended. (A) ASSESSMENT CATEGORY: BIRADS Category 2: Benign. A letter regarding these results will be sent to the patient by the facility within 30 days. Approximately 10% of breast cancers are not detected by mammography. A normal mammogram should not delay biopsy of a clinically suspicious abnormality. [id number] Electronically Signed: Dave Lutz MD at 8:49 EDT Tel [phone], Service support , CC: Barbara Shields MD; Miko Avila MD Van Loader: Signed CBC Collected: 02/18/2018 Status: F Source: [place] 6:35 PM [facility] REPOSITORY TYPE CODE TESTS RESULT OUT OF RANGE REFERENCE UNITS LAB CBC(LOINC) CBC Result Comment: CBC-COMPLETE BLOOD COUNT LAB WBC(LOINC) 4.5 - 10.8 x 10EE3/UL WBC 4.5 LAB RBC(LOINC) 4.10 - x 10EE6/UL 5.30 RBC 4.36 LAB HEMOGLOBIN(LOINC) 12.0 - g/dl 16.0 HEMOGLOBIN 14.0 LAB HEMATOCRIT(LOINC) 34.0 - % 46.0 HEMATOCRIT 40.8 LAB MCV(LOINC) 80 - 99 fl MCV 94 LAB MCH(LOINC) 27 - 33 pg MCH 32 LAB MCHC(LOINC) 32 - 36 X10 3 MCHC 34 LAB RDW/CV(LOINC) 12.0 - % 15.6 RDW/CV 14.8 LAB PLATELET(LOINC) 150 - 450 x10EE3/UL PLATELET 161 LAB MPV(LOINC) 6.6 - 10.5 fl MPV 8.3 Result Comment: AUTOMATED DIFFERENTIAL LAB NEUT %(LOINC) 46.0 - 76.0 % NEUT % Low 44.2 LAB LYMPH %(LOINC) 20.0 - 45.0 % LYMPH % 42.2 LAB MONOS %(LOINC) 0.0 - 10.0 % MONOS % 9.4 LAB EO %(LOINC) 0.0 - 7.0 % EO % 3.6 LAB BASO %(LOINC) 0.0 - 2.0 % BASO % 0.6 LAB Lymph #(LOINC) 0.80 - 2.80 x10EE3/U L Lymph # 1.90 LAB Neut #(LOINC) 1.50 - 7.10 x10EE3/U L Neut # 2.00 LAB Ramsey #(LOINC) 0.20 - 1.00 x10EE3/U L Ramsey # 0.40 LAB EO #(LOINC) 0.00 - 0.50 x10EE3/U L EO # 0.20 LAB Baso #(LOINC) 0.00 - 0.10 x10EE3/U L Baso # 0.00 LAB MANUAL DIFF(LOINC) MANUAL DIFF N/A LAB MORPHOLOGY(LOINC ) MORPHOLOGY N/A Result Comment: {CD] Performed By: #### [id number] #### [place] [address] SEDRATE Collected: 02/18/2018 Status: F Source: [facility] 6:35 [facility] REPOSITORY TYPE CODE TESTS RESULT OUT OF REFERENCE UNITS RANGE LAB SEDRATE(BRYCE 0 - 30 mm/hr NC) SEDRATE 12 Performed By: #### [id number] #### [place] [address] C-REACTIVE PROTEIN Collected: 02/18/2018 Status: F Source: [facility] 6:35 [facility] REPOSITORY TYPE CODE TESTS RESULT OUT OF RANGE REFERENCE UNITS LAB CRP(LOINC) 0.00 - 1.00 mg/dl CRP 0.10 Performed By: #### [id number] #### [place] [address] ALBUMIN PLASMA Collected: 02/18/2018 Status: F Source: [facility] 6:35 [facility] REPOSITORY TYPE CODE TESTS RESULT OUT OF REFERENCE UNITS RANGE LAB ALBUMIN(BRYCE 3.4 - 4.8 g/dL NC) ALBUMIN 4.1 Performed By: #### [id number] #### [place] [address] SGPT (ALT) Collected: 02/18/2018 Status: F Source: [facility] 6:35 PM [facility] REPOSITORY TYPE CODE TESTS RESULT OUT OF RANGE REFERENCE UNITS LAB ALT/SGPT(LO 8 - 35 U/L INC) ALT/SGPT 16 Performed By: #### [id number] #### [facility],[address] [place] [address] SGOT (AST) Collected: 02/18/2018 Status: F Source: [facility] 6:35 PM [facility] REPOSITORY TYPE CODE TESTS RESULT OUT OF RANGE REFERENCE UNITS LAB AST/SGOT(LO 13 - 39 U/L INC) AST/SGOT 28 Performed By: #### [id number] #### [facility],[address] [place] [address] CREATININE Collected: 02/18/2018 Status: F Source: [facility] 6:35 PM [facility] REPOSITORY TYPE CODE TESTS RESULT OUT OF REFERENCE UNITS RANGE LAB CREATININE 0.6 - 1.2 mg/dl (LOINC) CREATININE 0.8 Performed By: #### [id number] #### [facility],[address] [place] [address] BUN Collected: 02/18/2018 Status: F Source: [facility] 6:35 PM [facility] REPOSITORY TYPE CODE TESTS RESULT OUT OF RANGE REFERENCE UNITS LAB BUN(LOINC) 6 - 20 mg/dl BUN 11 Performed By: #### [id number] #### [place] [address] CT ANGIOGRAPHY CHEST Observed: 02/13/2018 Status: F Source: [place] 8:43 AM [place] [address] Patient: CLAIRE GUEVARA Phone#: : 1955 Age: 62 Gender: F Pt. Type: Out Account: [id number] Location: 052 Ordering: AGUSTIN ORTIZ Exam Date: 02/13/2018/8:18 Family Phys: MIKO AVILA Charge Code: [id number] Physician: YANN DIALLO [place] Order #: [id number] DLP Dose#: PROCEDURE: CT ANGIOGRAPHY CHEST WITH CONTRAST COMPARISON: None. INDICATIONS: Non cardiac chest pain TECHNIQUE: After obtaining the patient's consent, CT images were obtained with non-ionic intravenous contrast material. Multi-planar images were created to optimize visualization of vascular anatomy with MPR/MIPS and 3D imaging. All CT scans at this facility use dose modulation, iterative reconstruction, and/or weight based dosing when appropriate to reduce radiation dose to as low as reasonably achievable. IV CONTRAST: Omnipaque 350,80ml TOTAL DOSE: 7.60 CTDIvol(mGy) FINDINGS: VASCULATURE: Normal. No visible pulmonary arterial thrombus or attenuation. AORTA: Normal. No aneurysm or dissection. LUNGS: Normal. No visible pulmonary disease. BRADLEY: Right hilar calcified lymph node is present. MEDIASTINUM: Normal. No mass or adenopathy. CARDIAC: Normal. No enlargement, pericardial thickening, or significant calcification. PLEURA: Normal. No mass or effusion. CHEST WALL: Normal. No mass or axillary adenopathy. LIMITED ABDOMEN: Normal. Limited images of the upper abdomen are unremarkable. BONES: Normal. No bony lesion or fracture. OTHER: Negative. CONCLUSION: 1. There is no evidence of acute thoracic abnormality. [place] [address] Patient: CLAIRE GUEVARA Phone#: : 1955 Age: 62 Gender: F Pt. Type: Out Account: [id number] Location: 052 Ordering: AGUSTIN ORTIZ Exam Date: 02/13/2018/8:18 Family Phys: MIKO AUSTIN Charge Code: [id number] Physician: YANN DIALLO [place] Order #: [id number] DLP Dose#: Dictated by: Juany Huerta MD on 02/13/2018 at 15:01 Approved by: Juany Huerta MD on 02/13/2018 at 15:01 CREATININE Collected: 02/12/2018 Status: F Source: [facility] 3:10 PM [facility] REPOSITORY TYPE CODE TESTS RESULT OUT OF REFERENCE UNITS RANGE LAB CREATININE 0.6 - 1.2 mg/dl (LOINC) CREATININE 0.7 Performed By: #### [id number] #### [facility],[address] [place] [address] FREE THYROXINE Collected: 02/05/2018 Status: F Source: [facility] 5:18 PM [facility] REPOSITORY TYPE CODE TESTS RESULT OUT OF REFERENCE UNITS RANGE LAB FT4(LOINC) 0.76-1.46 ng/dL Low Free Thyroxine 0.74 Performed By: #### FT4 #### [facility] [address] [place] [address] CPK Collected: 02/05/2018 Status: F Source: [facility] 5:18 PM [facility] REPOSITORY TYPE CODE TESTS RESULT OUT OF RANGE REFERENCE UNITS LAB CK(LOINC) 26-192 U/L CPK 170 Performed By: #### CK #### [place] [address] TSH, 3RD GENERATION Collected: 02/05/2018 Status: F Source: [facility] 5:18 PM [facility] REPOSITORY TYPE CODE TESTS RESULT OUT OF REFERENCE UNITS RANGE LAB TSH3(LOINC 0.358-3.740 uIU/mL ) TSH, 3rd generation 1.790 Performed By: #### TSH3 #### [place] [address] VITAMIN B12 Collected: 02/05/2018 Status: F Source: [facility] 5:18 PM [facility] REPOSITORY TYPE CODE TESTS RESULT OUT OF REFERENCE UNITS RANGE LAB B12(LOINC) 193-986 pg/mL Vitamin B12 611 Performed By: #### B12 #### [place] [address] PROGRESS Observed: 02/05/2018 Status: COMPLETED Source: [place] 4:27 PM [facility] REPOSITORY HNO ID: [id number] Author: Yann Diallo Jr. Service: (none) Author Type: Physician Type: Progress Notes Filed: 02/05/2018 5:59 PM Note Text: ESTABLISHED PATIENT VISIT HISTORY OF PRESENT ILLNESS: Claire Guevara is a 62 year old female, Ht 5' 4 (1.626 m) BMI 23 kg/m2 with a PMH significant for: 1. Transient cerebral ischemia, unspecified type - ICD9: 435.9, ICD10: G45.9 (primary diagnosis) Patient was to follow up with Dr. Zhao. ? 2. RLS (restless legs syndrome) - ICD9: 333.94, ICD10: G25.81 Symptoms were controlled with gabapentin 900mg Q dinner and 1200mg QHS. ?? 3. ZAID (obstructive sleep apnea) - ICD9: 327.23, ICD10: G47.33 Still poor compliance due to mask fit issues last visit. 4. Insomnia, unspecified type - ICD9: 780.52, ICD10: G47.00 Overall stable and doing well with sleep onset and maintenance insomnia last vist. ?Multifactorial insomnia including poor sleep hygiene, anxiety, RLS. ? Patient since last visit states she has some numbness and tingling on her right side, with headache and nausea - pt states these have been diagnosed as migraine and were part of the prior stroke evaluations. She adds that she is having chest pain with ambulation but was seen by cardiology and reports that she cleared the stress test. She is however to have a CT of her chest. She is also questioning if statin is causing pain as she adds her LFTs were also mildly elevated - however, on review of labs, LFTs were elevated in 2012 and she is on other meds including those of rheum nature that could elevate LFTs. Getting back to the headaches, they occur about three times per month and last 3-4 hours. For headache she takes Benadry and 3-4 ibuprofen. Either side of her body can go numb on further discussion and headache is described as posterior cervical region and radiating up the bilateral greater occipital nerves. ? Most recent MRI of C spine that I can obtain in [facility] is 04/09/15 that showed per report: Cervical spine degenerative changes with C6-7 disc osteophyte complex formation, resulting in mild central canal stenosis and moderate left and mild right neural foraminal narrowing. Gabapentin dose is unchanged and continues to tolerate. No issues falling asleep or staying asleep. She states at times feels like gabapentin can be oversedating, and some mornings she would just like to stay in bed. Currently without restless legs symptoms. However still with PAP issues. She was seen at [facility] where she received new mask and head gear. She was then sent to [facility], as she still felt she was having mild aerophagia. Current pressure setting is 11/7 cmH2O. She however is using PAP more often. Note BMI was 24.9 when PAP initially Rx'd but now 23 kg/m2. REVIEW OF SYSTEMS GENERAL:No weight loss, malaise or fevers. HEENT:Negative for frequent or significant headaches, No changes in hearing or vision, no nose bleeds or other nasal problems NECK:Negative for lumps, goiter, pain and significant neck swelling RESPIRATORY: Negative for cough, wheezing or shortness of breath. CARDIOVASCULAR: Negative for chest pain, leg swelling or palpitations. GASTROINTESTINAL: Negative for abdominal discomfort, blood in stools or black stools or change in bowel habits GENITOURINARY: No history of dysuria, frequency or incontinence MUSCULOSKELETAL: Negative for joint pain or swelling, back pain or muscle pain. NEUROLOGIC:Negative for focal numbness or weakness, headaches and dizziness or syncope, vision changes, speech/languag changes - EXCEPT that as per HPI above. SKIN:Negative for lesions, rash, and itching. PSYCHIATRIC: Negative for sleep disturbance, mood disorder and recent psychosocial stressors. HEMATOLOGIC/LYMPHATIC/IMMUNOLOGIC:Negative for prolonged bleeding, bruising easily or swollen nodes. ENDOCRINE: Negative for cold or heat intolerance, polyuria, polydipsia and goiter. The remainder of the ROS was reviewed and is negative. LAB/IMAGING: Those performed since patient's last visit have been reviewed. Glucose (mg/dL) Date Value 07/14/2011 111 (H) BUN (mg/dL) Date Value 03/31/2015 7 Creatinine (mg/dL) Date Value 03/31/2015 0.64 Sodium (mmol/L) Date Value 07/14/2011 141 Potassium (mmol/L) Date Value 07/14/2011 3.7 Chloride (mmol/L) Date Value 07/14/2011 105 CO2 (mmol/L) Date Value 07/14/2011 26 Protein, Total (g/dL) Date Value 07/14/2011 7.5 Albumin (g/dL) Date Value 07/14/2011 4.1 Calcium (mg/dL) Date Value 07/14/2011 9.1 Alkaline Phosphatase (U/L) Date Value 07/14/2011 105 Bilirubin, Total (mg/dL) Date Value 07/14/2011 0.3 AST (U/L) Date Value 07/14/2011 76 (H) ALT (U/L) Date Value 07/14/2011 78 (H) Rheumatoid Factor (IU/mL) Date Value 11/28/2002 50 (A) MEDICATIONS: fluticasone (FLONASE) 50 mcg/actuation nasal spray VITAMIN B COMPLEX ORAL Take by mouth once daily. methotrexate 2.5 mg tablet Take 2.5 mg by mouth every Sunday. famotidine (PEPCID) 20 mg tablet Take 20 mg by mouth twice daily. NITROSTAT 0.4 mg SL tablet aspirin, enteric coated (ASPIRIN, ENTERIC COATED) 81 mg EC tablet Take 81 mg by mouth once daily. escitalopram oxalate (LEXAPRO) 20 mg tablet Take 20 mg by mouth once daily. Cholecalciferol, Vitamin D3, (VITAMIN D) 1,000 unit Cap Take 1 capsule by mouth once daily. FOLIC ACID 1 mg ORAL tablet etanercept(ENBREL 50 MG/ML (0.98 ML) SUB-Q SYRINGE) takes once weekly. gabapentin (NEURONTIN) 300 mg capsule TAKE 3 CAPSULES BY MOUTH AT DINNER AND 4 CAPSULES BY MOUTH AT BEDTIME rosuvastatin (CRESTOR) 5 mg tablet 10 mg once daily. escitalopram oxalate (LEXAPRO) 10 mg tablet Take 10 mg by mouth once daily. MULTI-VITAMIN ORAL Take by mouth. HISTORIES PAST MEDICAL HISTORY Diagnosis Date - Abdominal pain - Arthritis - Bipolar 1 disorder (HCC) - Chest pain - Constipation - Coronary artery disease - Depression - Diabetes (HCC) - Diarrhea - Disorder of bone and cartilage, unspecified - Dizziness - Ear pain - Generalized anxiety disorder - Headache - History of medical problems PVC - Hyperlipidemia 04/05/2015 - Hypertension - Irregular heartbeat beneign irregular heartbeat - Left pontine stroke (HCC) 07/19/2017 - Mitral valve prolapse - Nausea - Numbness and tingling - Obstructive sleep apnea - ZAID (obstructive sleep apnea) - Osteoporosis - Palpitations - Rheumatoid arthritis(714.0) - TIA (transient ischemic attack) FAMILY HISTORY Problem Relation Age of Onset - Hypertension Mother - Diabetes Mother age 60 when on insulin - Heart Mother - Cancer Father PROSTATE AGE 73 - Prostate Cancer Father - Diabetes Maternal Grandfather - Arthritis Sister - Cancer Sister Uterus/Colon cancer with mets - ??? - at age 68 - Seizures Daughter - other (migraines) Daughter - Stroke Daughter - other (hypokalemic periodic paralysis) Daughter - other (high cholesterol) Other - other (AVM) Daughter - other (ICH) Daughter SOCIAL HISTORY Social History Substance Use Topics - Smoking status: Never Smoker - Smokeless tobacco: Never Used - Alcohol use No PHYSICAL EXAMINATION BP 100/78 Pulse 68 Resp 17 Ht 5' 4 (1.626 m) Wt 134 lb (60.8 kg) LMP 04/11/2005 SpO2 97% BMI 23.00 kg/m? GENERAL EXAM: General appearance: NAD, pleasant. HEENT: NC/AT, nasal congestion absent, no oral lesions, membranes moist. NECK: No masses, supple. Lungs: CTA bilaterally. No wheezes present. CV: RRR nl S1, S2, no murmurs. No carotid bruits. Abd: Soft, nontender, nondistended. Bowel sounds present. Extr: No cyanosis, clubbing or edema. No evidence of fasciculations. Extremity pulses palpable and normal. Skin: Cool to touch. No rash. NEUROLOGICAL EXAM: General: Awake, alert, oriented x3 (person,place,time), speech fluent, no dysarthria; comprehension, naming, repetition intact. Short and shelter memory intact. Fund of knowledge grossly normal by MOCA. CN: PERRL, fundi appear normal including no evidence of papilledema, EOMI and without nystagmus, VFF to confrontation, facial sensation and strength are normal and symmetric, hearing is intact to finger rub bilaterally, palate and tongue movements are intact and symmetric. SCM and trapezius strength normal. Motor: Normal tone, bulk and strength (5/5) bilaterally (throughout extremities x4). Reflexes: 2/4 and symmetric, plantar stimulation is flexor. Coordination: FNF, CHON, HTS intact. No tremors. Sensation: LT, PP, vibration, temperature intact throughout. No evidence of neglect. Gait: Narrow based and stable with normal stride and arm swing. Normal tandem. Romberg normal. Assessment and Plan: ASSESSMENT/PLAN: 1. Migraine with aura and without status migrainosus, not intractable - ICD9: 346.00, ICD10: G43.109 (primary diagnosis) Symptoms of numbness with headache and nausea previously diagnosed as migraine and will continue to treat as such. Not frequent enough for preventative medication. However, for nausea will provide patient with Zofran 4mg po 1 per day prn. Note pt is on gabapentin that can act as preventative med. 2. Restless legs syndrome - ICD9: 333.94, ICD10: G25.81 Doing quite well, and wonders if she is too sleepy in AM now as possible side effect of medication. Thus will try to wean off gabapentin by 300mg weekly (alternating night time and dinner doses - see patient instructions). 3. ZAID (obstructive sleep apnea) - ICD9: 327.23, ICD10: G47.33 Improved mask comfort but still with aerophagia. Thus will again attempt to decrease bilevel setting now to 9/5 cmH2O (rx sent to [facility]). Will request download in 2 weeks to determine if this pressure setting is controlling respiratory events. Encouraged patient to sleep off supine. Reminded to clean and replace equipment regular basis. 4. TIA (transient ischemic attack) - ICD9: 435.9, ICD10: G45.9 Known history of TIA and question of old stroke. Continue anti-plt therapy and statin for now. Will check CK to see if statin is possibly inducing myopathy given complaints above. BP goal <140/90. Glucose goal <140. 5. Chest pain, unspecified type - ICD9: 786.50, ICD10: R07.9 Reports that cardiology is aware of symptoms. In addition other muscle pains. Will check Thyroid labs, B12 and CK as above. Will not d/c statin if CK levels normal. Yann Diallo MD I spent 40 minutes in the visit, with more than 50% of the total [id number] time of the visit in counseling / coordination of care. CNOV Observed: 02/05/2018 Status: COMPLETED Source: [place] 4:20 PM [facility] REPOSITORY Office Visit ([facility]) CLAIRE GUEVARA ([id number]) 1955 F T Date Time Provider Department 02/05/18 4:20 PM NORI MARTINEZ, YANN BALTAZAR During your visit today, we recorded the following information about you: Pulse Respiration Blood pressure Weight 68/minute 17/minute 100/78 60.8 kg Height 1.626 m Yann Diallo MD 02/05/2018 5:59 PM Signed ESTABLISHED PATIENT VISIT HISTORY OF PRESENT ILLNESS: Claire Guevara is a 62 year old female, Ht 5' 4 (1.626 m) BMI 23 kg/m2 with a PMH significant for: 1. Transient cerebral ischemia, unspecified type - ICD9: 435.9, ICD10: G45.9 (primary diagnosis) Patient was to follow up with Dr. Zhao. ? 2. RLS (restless legs syndrome) - ICD9: 333.94, ICD10: G25.81 Symptoms were controlled with gabapentin 900mg Q dinner and 1200mg QHS. ?? 3. ZAID (obstructive sleep apnea) - ICD9: 327.23, ICD10: G47.33 Still poor compliance due to mask fit issues last visit. 4. Insomnia, unspecified type - ICD9: 780.52, ICD10: G47.00 Overall stable and doing well with sleep onset and maintenance insomnia last vist. ?Multifactorial insomnia including poor sleep hygiene, anxiety, RLS. ? Patient since last visit states she has some numbness and tingling on her right side, with headache and nausea - pt states these have been diagnosed as migraine and were part of the prior stroke evaluations. She adds that she is having chest pain with ambulation but was seen by cardiology and reports that she cleared the stress test. She is however to have a CT of her chest. She is also questioning if statin is causing pain as she adds her LFTs were also mildly elevated - however, on review of labs, LFTs were elevated in 2011 and she is on other meds including those of rheum nature that could elevate LFTs. Getting back to the headaches, they occur about three times per month and last 3-4 hours. For headache she takes Benadry and 3-4 ibuprofen. Either side of her body can go numb on further discussion and headache is described as posterior cervical region and radiating up the bilateral greater occipital nerves. ? Most recent MRI of C spine that I can obtain in [facility] is 04/09/15 that showed per report: Cervical spine degenerative changes with C6-7 disc osteophyte complex formation, resulting in mild central canal stenosis and moderate left and mild right neural foraminal narrowing. Gabapentin dose is unchanged and continues to tolerate. No issues falling asleep or staying asleep. She states at times feels like gabapentin can be oversedating, and some mornings she would just like to stay in bed. Currently without restless legs symptoms. However still with PAP issues. She was seen at [facility] where she received new mask and head gear. She was then sent to [facility], as she still felt she was having mild aerophagia. Current pressure setting is 11/7 cmH2O. She however is using PAP more often. Note BMI was 24.9 when PAP initially Rx'd but now 23 kg/m2. REVIEW OF SYSTEMS GENERAL:No weight loss, malaise or fevers. HEENT:Negative for frequent or significant headaches, No changes in hearing or vision, no nose bleeds or other nasal problems NECK:Negative for lumps, goiter, pain and significant neck swelling RESPIRATORY: Negative for cough, wheezing or shortness of breath. CARDIOVASCULAR: Negative for chest pain, leg swelling or palpitations. GASTROINTESTINAL: Negative for abdominal discomfort, blood in stools or black stools or change in bowel habits GENITOURINARY: No history of dysuria, frequency or incontinence MUSCULOSKELETAL: Negative for joint pain or swelling, back pain or muscle pain. NEUROLOGIC:Negative for focal numbness or weakness, headaches and dizziness or syncope, vision changes, speech/languag changes - EXCEPT that as per HPI above. SKIN:Negative for lesions, rash, and itching. PSYCHIATRIC: Negative for sleep disturbance, mood disorder and recent psychosocial stressors. HEMATOLOGIC/LYMPHATIC/IMMUNOLOGIC:Negative for prolonged bleeding, bruising easily or swollen nodes. ENDOCRINE: Negative for cold or heat intolerance, polyuria, polydipsia and goiter. The remainder of the ROS was reviewed and is negative. LAB/IMAGING: Those performed since patient's last visit have been reviewed. Glucose (mg/dL) Date Value 07/14/2011 111 (H) BUN (mg/dL) Date Value 03/31/2015 7 Creatinine (mg/dL) Date Value 03/31/2015 0.64 Sodium (mmol/L) Date Value 07/14/2011 141 Potassium (mmol/L) Date Value 07/14/2011 3.7 Chloride (mmol/L) Date Value 07/14/2011 105 CO2 (mmol/L) Date Value 07/14/2011 26 Protein, Total (g/dL) Date Value 07/14/2011 7.5 Albumin (g/dL) Date Value 07/14/2011 4.1 Calcium (mg/dL) Date Value 07/14/2011 9.1 Alkaline Phosphatase (U/L) Date Value 07/14/2011 105 Bilirubin, Total (mg/dL) Date Value 07/14/2011 0.3 AST (U/L) Date Value 07/14/2011 76 (H) ALT (U/L) Date Value 07/14/2011 78 (H) Rheumatoid Factor (IU/mL) Date Value 11/28/2002 50 (A) MEDICATIONS: fluticasone (FLONASE) 50 mcg/actuation nasal spray VITAMIN B COMPLEX ORAL Take by mouth once daily. methotrexate 2.5 mg tablet Take 2.5 mg by mouth every Sunday. famotidine (PEPCID) 20 mg tablet Take 20 mg by mouth twice daily. NITROSTAT 0.4 mg SL tablet aspirin, enteric coated (ASPIRIN, ENTERIC COATED) 81 mg EC tablet Take 81 mg by mouth once daily. escitalopram oxalate (LEXAPRO) 20 mg tablet Take 20 mg by mouth once daily. Cholecalciferol, Vitamin D3, (VITAMIN D) 1,000 unit Cap Take 1 capsule by mouth once daily. FOLIC ACID 1 mg ORAL tablet etanercept(ENBREL 50 MG/ML (0.98 ML) SUB-Q SYRINGE) takes once weekly. gabapentin (NEURONTIN) 300 mg capsule TAKE 3 CAPSULES BY MOUTH AT DINNER AND 4 CAPSULES BY MOUTH AT BEDTIME rosuvastatin (CRESTOR) 5 mg tablet 10 mg once daily. escitalopram oxalate (LEXAPRO) 10 mg tablet Take 10 mg by mouth once daily. MULTI-VITAMIN ORAL Take by mouth. HISTORIES PAST MEDICAL HISTORY Diagnosis Date - Abdominal pain - Arthritis - Bipolar 1 disorder (HCC) - Chest pain - Constipation - Coronary artery disease - Depression - Diabetes (HCC) - Diarrhea - Disorder of bone and cartilage, unspecified - Dizziness - Ear pain - Generalized anxiety disorder - Headache - History of medical problems PVC - Hyperlipidemia 04/05/2015 - Hypertension - Irregular heartbeat beneign irregular heartbeat - Left pontine stroke (HCC) 07/19/2017 - Mitral valve prolapse - Nausea - Numbness and tingling - Obstructive sleep apnea - ZAID (obstructive sleep apnea) - Osteoporosis - Palpitations - Rheumatoid arthritis(714.0) - TIA (transient ischemic attack) FAMILY HISTORY Problem Relation Age of Onset - Hypertension Mother - Diabetes Mother age 60 when on insulin - Heart Mother - Cancer Father PROSTATE AGE 73 - Prostate Cancer Father - Diabetes Maternal Grandfather - Arthritis Sister - Cancer Sister Uterus/Colon cancer with mets - ??? - at age 68 - Seizures Daughter - other (migraines) Daughter - Stroke Daughter - other (hypokalemic periodic paralysis) Daughter - other (high cholesterol) Other - other (AVM) Daughter - other (ICH) Daughter SOCIAL HISTORY Social History Substance Use Topics - Smoking status: Never Smoker - Smokeless tobacco: Never Used - Alcohol use No PHYSICAL EXAMINATION BP 100/78 Pulse 68 Resp 17 Ht 5' 4 (1.626 m) Wt 134 lb (60.8 kg) LMP 04/11/2005 SpO2 97% BMI 23.00 kg/m? GENERAL EXAM: General appearance: NAD, pleasant. HEENT: NC/AT, nasal congestion absent, no oral lesions, membranes moist. NECK: No masses, supple. Lungs: CTA bilaterally. No wheezes present. CV: RRR nl S1, S2, no murmurs. No carotid bruits. Abd: Soft, nontender, nondistended. Bowel sounds present. Extr: No cyanosis, clubbing or edema. No evidence of fasciculations. Extremity pulses palpable and normal. Skin: Cool to touch. No rash. NEUROLOGICAL EXAM: General: Awake, alert, oriented x3 (person,place,time), speech fluent, no dysarthria; comprehension, naming, repetition intact. Short and computer terminal operator memory intact. Fund of knowledge grossly normal by MOCA. CN: PERRL, fundi appear normal including no evidence of papilledema, EOMI and without nystagmus, VFF to confrontation, facial sensation and strength are normal and symmetric, hearing is intact to finger rub bilaterally, palate and tongue movements are intact and symmetric. SCM and trapezius strength normal. Motor: Normal tone, bulk and strength (5/5) bilaterally (throughout extremities x4). Reflexes: 2/4 and symmetric, plantar stimulation is flexor. Coordination: FNF, CHON, HTS intact. No tremors. Sensation: LT, PP, vibration, temperature intact throughout. No evidence of neglect. Gait: Narrow based and stable with normal stride and arm swing. Normal tandem. Romberg normal. Assessment and Plan: ASSESSMENT/PLAN: 1. Migraine with aura and without status migrainosus, not intractable - ICD9: 346.00, ICD10: G43.109 (primary diagnosis) Symptoms of numbness with headache and nausea previously diagnosed as migraine and will continue to treat as such. Not frequent enough for preventative medication. However, for nausea will provide patient with Zofran 4mg po 1 per day prn. Note pt is on gabapentin that can act as preventative med. 2. Restless legs syndrome - ICD9: 333.94, ICD10: G25.81 Doing quite well, and wonders if she is too sleepy in AM now as possible side effect of medication. Thus will try to wean off gabapentin by 300mg weekly (alternating night time and dinner doses - see patient instructions). 3. ZAID (obstructive sleep apnea) - ICD9: 327.23, ICD10: G47.33 Improved mask comfort but still with aerophagia. Thus will again attempt to decrease bilevel setting now to 9/5 cmH2O (rx sent to [facility]). Will request download in 2 weeks to determine if this pressure setting is controlling respiratory events. Encouraged patient to sleep off supine. Reminded to clean and replace equipment regular basis. 4. TIA (transient ischemic attack) - ICD9: 435.9, ICD10: G45.9 Known history of TIA and question of old stroke. Continue anti-plt therapy and statin for now. Will check CK to see if statin is possibly inducing myopathy given complaints above. BP goal <140/90. Glucose goal <140. 5. Chest pain, unspecified type - ICD9: 786.50, ICD10: R07.9 Reports that cardiology is aware of symptoms. In addition other muscle pains. Will check Thyroid labs, B12 and CK as above. Will not d/c statin if CK levels normal. Yann Diallo MD I spent 40 minutes in the visit, with more than 50% of the total gssp-oy-vzgc time of the visit in counseling / coordination of care. Yann Diallo MD 02/05/2018 4:50 PM Signed 1. Regarding gabapentin. Every week try to reduce by 1 capsule nightly. Thus the first week take 3 at dinner and before bed. Then the following week, take 2 at dinner and 3 at bed. Then the following week, take 2 at dinner and 2 at bed and continue to alternate as you decrease the dose. Continue to decrease until again having symptoms of RLS or not sleeping. At such time, return to the last dose that was effective in treating symptoms. 2. In addition to gabapentin and OTCs for migraines will also provide Rx for Zofran that you can take at time of migraines for nausea. 3. We will decrease your PAP setting to 9/5 cmH2O and have [facility] provide me a download in 2 weeks to see how you are doing. Continue to try to sleep on your side if possible. 4. Regarding statin therapy, will check CK level to see if any muscle damage present with you being on statin. 5. For headaches, increase Magnesium supplement to 500mg daily. If side effect of diarrhea reduce dose and let us know. Referring Provider: YANN DIALLO JR [[id number]] Allergies As of Date: 02/05/2018 Noted Allergy Reaction AUGMENTIN (AMOXICILLIN-POT CLAVUL*05/04/2017 2 - Rash Date Reviewed: 02/05/2018 Reviewed by: Yann Diallo Jr. - Fully Assessed Reason for Visit: Follow Up [171] Primary Visit Diagnosis:Migraine with aura and without status migrainosus, not intractable [G43.109] Other Visit Diagnoses:Restless legs syndrome [G25.81] ZAID (obstructive sleep apnea) [G47.33] TIA (transient ischemic attack) [G45.9] Chest pain, unspecified type [R07.9] Order(s):gabapentin (NEURONTIN) 300 mg capsuleTAKE 3 CAPSULES BY MOUTH AT DINNER AND 4 CAPSULES BY MOUTH AT BEDTIMEDisp: 630 capsuleRfl: 0 ondansetron (ZOFRAN) 4 mg tabletTake 1 tablet by mouth once daily as needed (for nausea.).Disp: 10 tabletRfl: 2 TSH BLD [SQTSH] Order #: [id number] FUTURE VITAMIN B12 BLOOD [SQB12] Order #: [id number] FUTURE T4 FREE/FREE THYROX [SQFT4] Order #: [id number] FUTURE CK CREATINE KINASE [SQCK] Order #: [id number] FUTURE CPAPPlease decrease PAP setting to 9/5 cmH2O and provide us with data download in 2 weeks.Disp: 1 DeviceRfl: 0 Prescriptions as of 02/05/2018 Sig: FLUTICASONE 50 MCG/ACTUATION * VITAMIN B COMPLEX ORAL Take by mouth once daily. METHOTREXATE SODIUM 2.5 MG TA* Take 2.5 mg by mouth every Fr* FAMOTIDINE 20 MG TABLET Take 20 mg by mouth twice tracy* NITROSTAT 0.4 MG SUBLINGUAL T* ASPIRIN 81 MG TABLET,DELAYED * Take 81 mg by mouth once shane* ESCITALOPRAM 20 MG TABLET Take 20 mg by mouth once shane* * CHOLECALCIFEROL (VITAMIN D3) * Take 1 capsule by mouth once * * FOLIC ACID 1 MG TABLET * ENBREL 50 MG/ML (0.98 ML) SUB* takes once weekly. GABAPENTIN 300 MG CAPSULE TAKE 3 CAPSULES BY MOUTH AT D* ONDANSETRON HCL 4 MG TABLET Take 1 tablet by mouth once d* CPAP Please decrease PAP setting t* ROSUVASTATIN 5 MG TABLET 10 mg once daily. ESCITALOPRAM 10 MG TABLET Take 10 mg by mouth once shane* MULTI-VITAMIN ORAL Take by mouth. Problem List As Of Date 02/05/2018 Noted Resolved Rheumatoid arthritis (HCC) [M06.9] Priority: Moderate More... More... More... Abnormal Stress Test [R94.39] INVALID FOR* More... 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 PVC's INVALID FOR* More... Osteopenia [M85.80] INVALID FOR* Routine Gynecological Examination [Z01.419] INVALID FOR* Class: Chronic More... GERD (Gastroesophageal Reflux Disease) [K21.9] INVALID FOR* More... Impaired Fasting Glucose [R73.01] INVALID FOR* Neoplasm of uncertain behavior of skin [D48.5] INVALID FOR* Irritable bowel syndrome with diarrhea [K58.0] INVALID FOR* Hyperlipidemia [E78.5] INVALID FOR* ZAID (obstructive sleep apnea) [G47.33] INVALID FOR* Multiple thyroid nodules [E04.2] INVALID FOR* TIA (transient ischemic attack) [G45.9] INVALID FOR* Anxiety neurosis [F41.1] INVALID FOR* RBBB [I45.10] INVALID FOR* Micrognathia [M26.09] INVALID FOR* Family history of colon cancer [Z80.0] INVALID FOR*04/08/2015 Migraine aura without headache [G43.109] INVALID FOR* Left pontine stroke (HCC) [I63.50] INVALID FOR* Cerebrovascular small vessel disease [I67.9] INVALID FOR* Other instructions from your clinician: 1. Regarding gabapentin. Every week try to reduce by 1 capsule nightly. Thus the first week take 3 at dinner and before bed. Then the following week, take 2 at dinner and 3 at bed. Then the following week, take 2 at dinner and 2 at bed and continue to alternate as you decrease the dose. Continue to decrease until again having symptoms of RLS or not sleeping. At such time, return to the last dose that was effective in treating symptoms. 2. In addition to gabapentin and OTCs for migraines will also provide Rx for Zofran that you can take at time of migraines for nausea. 3. We will decrease your PAP setting to 9/5 cmH2O and have [facility] provide me a download in 2 weeks to see how you are doing. Continue to try to sleep on your side if possible. 4. Regarding statin therapy, will check CK level to see if any muscle damage present with you being on statin. 5. For headaches, increase Magnesium supplement to 500mg daily. If side effect of diarrhea reduce dose and let us know. Prescriptions ordered this encounter Disp Refills Start End GABAPENTIN 300 MG CAPSULE 630 * 0 02/05/2018 05/08/2018 Sig: TAKE 3 CAPSULES BY MOUTH AT DINNER AND 4 CAPSULES BY MOUTH AT BEDTIME ONDANSETRON HCL 4 MG TABLET 10 t* 2 02/05/2018 Route: ORAL Sig: Take 1 tablet by mouth once daily as needed (for nausea.). CPAP 1 De* 0 02/05/2018 Class: Print RX Sig: Please decrease PAP setting to 9/5 cmH2O and provide us with data download in 2 weeks. Medications Discontinued During This Encounter gabapentin (NEURONTIN) 300 mg capsule 630 * 0 01/14/2018 02/05/2018 Sig: TAKE 3 CAPSULES BY MOUTH AT DINNER AND 4 CAPSULES BY MOUTH AT BEDTIME Disc: Reason for discontinue is not on file. Disposition: Return in about 7 months (around 09/05/2018). Follow-up and Disposition History Recorded Encounter Status:Closed by YANN DIALLO on 02/05/18 NM MYOCARDIAL SPECT Observed: 01/18/2018 Status: F Source: [facility] STRESS/REST 10:00 AM [facility] REPOSITORY ORIGINAL NM MYOCARDIAL SPECT STRESS/REST CLINICAL STATEMENT:CHEST PAIN TECHNIQUE: Stress Protocol:Tarun Time Exercised:7.5minutes Predicted Max HR:157 Max HR Achieved:150 Percent Max HR:95 Peak Systolic BP:156 Rate-Pressure product: Radiopharmaceutical(rest): Tc-99m Myoview IV Dose:6.4 mCi Radiopharmaceutical(stress): Tc-99m Myoview IV Dose:17.7 mCi SPECT acquisition:SPECT reconstruction and reorientation into short axis, vertical and horizontal long axis planes Quantitative LVEF assessment COMPARISON:None REPORT:This a technically difficult study due to the presence of scaling artifact and some diaphragmatic and motion artifact. Tomographic images reveals a cleft-like defect in the inferior wall most lik orion secondary scaling artifact and diaphragmatic attenuation artifact. There are no definitive fixed or reversible defects noted. The gated study demonstrates normal wall motion and thickening with an ejection fraction of 77% IMPRESSION:Technically difficult study as outlined above. Within the limitations of the study is no obvious areas of ischemia or infarction. The gated study demonstrates normal wall motion normal ejection fraction Interpreted By: Agustin Bedoya MD Preliminary Report By: Agustin Bedoya MD Electronically Signed By: Agustin Bedoya MD Dictated Date: 01/18/2018 12:08:24 PM Prelim Date: 01/18/2018 12:08:24 PM Sign Date: 01/18/2018 12:18:30 PM CBC Collected: 12/24/2017 Status: F Source: ABDIAS VIVAR 5:15 PM [facility] REPOSITORY TYPE CODE TESTS RESULT OUT OF RANGE REFERENCE UNITS LAB CBC(LOINC) CBC Result Comment: CBC-COMPLETE BLOOD COUNT LAB WBC(LOINC) 4.5 - 10.8 x 10EE3/UL WBC 5.0 LAB RBC(LOINC) 4.10 - x 10EE6/UL 5.30 RBC 4.30 LAB HEMOGLOBIN(LOINC) 12.0 - g/dl 16.0 HEMOGLOBIN 14.1 LAB HEMATOCRIT(LOINC) 34.0 - % 46.0 HEMATOCRIT 40.3 LAB MCV(LOINC) 80 - 99 fl MCV 94 LAB MCH(LOINC) 27 - 33 pg MCH 33 LAB MCHC(LOINC) 32 - 36 X10 3 MCHC 35 LAB RDW/CV(LOINC) 12.0 - % 15.6 RDW/CV 13.9 LAB PLATELET(LOINC) 150 - 450 x10EE3/UL PLATELET Low 130 LAB MPV(LOINC) 6.6 - 10.5 fl MPV 8.2 Result Comment: AUTOMATED DIFFERENTIAL LAB NEUT %(LOINC) 46.0 - 76.0 % NEUT % 57.4 LAB LYMPH %(LOINC) 20.0 - 45.0 % LYMPH % 30.4 LAB MONOS %(LOINC) 0.0 - 10.0 % MONOS % 7.4 LAB EO %(LOINC) 0.0 - 7.0 % EO % 4.5 LAB BASO %(LOINC) 0.0 - 2.0 % BASO % 0.3 LAB Lymph #(LOINC) 0.80 - 2.80 x10EE3/U L Lymph # 1.50 LAB Neut #(LOINC) 1.50 - 7.10 x10EE3/U L Neut # 2.80 LAB Ramsey #(LOINC) 0.20 - 1.00 x10EE3/U L Ramsey # 0.40 LAB EO #(LOINC) 0.00 - 0.50 x10EE3/U L EO # 0.20 LAB Baso #(LOINC) 0.00 - 0.10 x10EE3/U L Baso # 0.00 LAB MANUAL DIFF(LOINC) MANUAL DIFF N/A LAB MORPHOLOGY(LOINC ) MORPHOLOGY N/A Result Comment: {CD] Performed By: #### [id number] #### [place] [id number] C-REACTIVE PROTEIN Collected: 12/24/2017 Status: F Source: [facility] 5:15 PM [facility] REPOSITORY TYPE CODE TESTS RESULT OUT OF RANGE REFERENCE UNITS LAB CRP(LOINC) 0.00 - 1.00 mg/dl CRP <0.10 Performed By: #### [id number] #### [place] [address] ALBUMIN PLASMA Collected: 12/24/2017 Status: F Source: [facility] 5:15 PM [facility] REPOSITORY TYPE CODE TESTS RESULT OUT OF REFERENCE UNITS RANGE LAB ALBUMIN(BRYCE 3.4 - 4.8 g/dL NC) ALBUMIN 4.3 Performed By: #### [id number] #### [place] [address] SGOT (AST) Collected: 12/24/2017 Status: F Source: [facility] 5:15 PM [facility] REPOSITORY TYPE CODE TESTS RESULT OUT OF RANGE REFERENCE UNITS LAB AST/SGOT(LO 13 - 39 U/L INC) High AST/SGOT 71 Performed By: #### [id number] #### [address] [id number] BUN Collected: 12/24/2017 Status: F Source: [facility] 5:15 PM [facility] REPOSITORY TYPE CODE TESTS RESULT OUT OF RANGE REFERENCE UNITS LAB BUN(LOINC) 6 - 20 mg/dl BUN 11 Performed By: #### [id number] #### [place] [address] SGPT (ALT) Collected: 12/24/2017 Status: F Source: [facility] 5:15 PM [facility] REPOSITORY TYPE CODE TESTS RESULT OUT OF RANGE REFERENCE UNITS LAB ALT/SGPT(LO 8 - 35 U/L INC) High ALT/SGPT 55 Performed By: #### [id number] #### [place] [id number] CREATININE Collected: 12/24/2017 Status: F Source: [facility] 5:15 PM [facility] TYPE CODE TESTS RESULT OUT OF REFERENCE UNITS RANGE LAB CREATININE 0.6 - 1.2 mg/dl (LOINC) CREATININE 0.7 Performed By: #### [id number] #### [place] [id number] SEDRATE Collected: 12/24/2017 Status: F Source: [facility] 5:15 PM [facility] REPOSITORY TYPE CODE TESTS RESULT OUT OF REFERENCE UNITS RANGE LAB SEDRATE(BRYCE 0 - 30 mm/hr NC) SEDRATE 9 Performed By: #### [id number] #### [place] [id number] CHEST 2 VIEWS Observed: 11/19/2017 Status: F Source: [facility] 12:02 PM [place] [id number] Patient: CLAIRE GUEVARA Phone#: : 1955 Age: 62 Gender: F Pt. Type: Out Account: [id number] Location: [facility] Ordering: MIKO AVILA Exam Date: 11/19/2017/11:50 Family Phys: Charge Code: [id number] Physician: [place] Order #: [id number] DLP Dose#: This report includes an Addendum and supersedes previous reports for this exam. PROCEDURE: X-RAY CHEST 2 VIEWS COMPARISON: [facility], XR, CHEST PA/LAT, 05/27/2017, 14:50. INDICATIONS: Chest wall mass FINDINGS: LUNGS: Normal. No significant pulmonary parenchymal abnormalities. VASCULATURE: Normal. Unremarkable pulmonary vasculature. CARDIAC: Normal. No cardiac silhouette abnormality or cardiomegaly. MEDIASTINUM: Normal. No visible mass or adenopathy. PLEURA: Normal. No effusion or pleural thickening. BONES: Normal. No fracture or visible bony lesion. OTHER: Negative. CONCLUSION: No acute disease. No significant change has occurred. Dictated by: Juany Huerta MD on 11/19/2017 at 12:52 Approved by: Juany Huerta MD on 11/19/2017 at 12:52 ADDENDUM: Comparison is made with prior film dated 2017, [facility]. There has been no interval change. Dictated by: Juany Huerta MD on 11/20/2017 at 14:06 Approved by: Juany Huerta MD on 11/20/2017 at 14:06 OBSOLETE Observed: 11/02/2017 Status: COMPLETED Source: [place] 12:00 AM [facility] REPOSITORY Orders Only (MEPRAD) DEVONCLAIRE MAYA (<[id number]>) 1955 F T Date Time Provider Department 11/02/17 NORI MARTINEZ YANN SIMMONS During your visit today, we recorded the following information about you: Allergies As of Date: 11/02/2017 Noted Allergy Reaction AUGMENTIN (AMOXICILLIN-POT CLAVUL*05/04/2017 2 - Rash Date Reviewed: 10/26/2017 Reviewed by: Yann Diallo Jr. - Fully Assessed Primary Visit Diagnosis:Obstructive sleep apnea (adult) (pediatric) [G47.33] Order(s):CPAP FULL FACE MASK [[id number]] Order #: [id number]: 1 Prescriptions as of 11/02/2017 Sig: GABAPENTIN 300 MG CAPSULE Take 3 capsules at dinner and* ROSUVASTATIN 5 MG TABLET 10 mg once daily. FLUTICASONE 50 MCG/ACTUATION * VITAMIN B COMPLEX ORAL Take by mouth once daily. METHOTREXATE SODIUM 2.5 MG TA* Take 2.5 mg by mouth every Fr* ESCITALOPRAM 10 MG TABLET Take 10 mg by mouth once shane* FAMOTIDINE 20 MG TABLET Take 20 mg by mouth twice tracy* NITROSTAT 0.4 MG SUBLINGUAL T* ASPIRIN 81 MG TABLET,DELAYED * Take 81 mg by mouth once shane* ESCITALOPRAM 20 MG TABLET Take 20 mg by mouth once shane* MULTI-VITAMIN ORAL Take by mouth. * CHOLECALCIFEROL (VITAMIN D3) * Take 1 capsule by mouth once * * FOLIC ACID 1 MG TABLET * ENBREL 50 MG/ML (0.98 ML) SUB* takes once weekly. Problem List As Of Date 11/02/2017 Noted Resolved Rheumatoid arthritis (HCC) [M06.9] Priority: Moderate More... More... More... Abnormal Stress Test [R94.39] INVALID FOR* More... 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 PVC's INVALID FOR* More... Osteopenia [M85.80] INVALID FOR* Routine Gynecological Examination [Z01.419] INVALID FOR* Class: Chronic More... GERD (Gastroesophageal Reflux Disease) [K21.9] INVALID FOR* More... Impaired Fasting Glucose [R73.01] INVALID FOR* Neoplasm of uncertain behavior of skin [D48.5] INVALID FOR* Irritable bowel syndrome with diarrhea [K58.0] INVALID FOR* Hyperlipidemia [E78.5] INVALID FOR* ZAID (obstructive sleep apnea) [G47.33] INVALID FOR* Multiple thyroid nodules [E04.2] INVALID FOR* TIA (transient ischemic attack) [G45.9] INVALID FOR* Anxiety neurosis [F41.1] INVALID FOR* RBBB [I45.10] INVALID FOR* Micrognathia [M26.09] INVALID FOR* Family history of colon cancer [Z80.0] INVALID FOR*04/08/2015 Migraine aura without headache [G43.109] INVALID FOR* Left pontine stroke (HCC) [I63.50] INVALID FOR* Cerebrovascular small vessel disease [I67.9] INVALID FOR* Follow-up and Disposition History Recorded Encounter Status:Closed by YANN DIALLO on 11/02/17 LAURIE Observed: 10/26/2017 Status: COMPLETED Source: [place] 11:00 AM [facility] REPOSITORY Office Visit (NEURMM) CLAIRE GUEVARA ([id number]) 1955 F [facility] Date Time Provider Department 10/26/17 11:00 AM YANN DIALLO JR NEURLILIA During your visit today, we recorded the following information about you: Pulse Blood pressure Weight 72/minute 114/86 60.3 kg Yann Diallo MD 10/26/2017 11:41 AM Signed ESTABLISHED PATIENT VISIT HISTORY OF PRESENT ILLNESS: Claire Guevara is a 62 year old female, BMI 22.83 kg/m2 with a PMH significant for: 1. Transient cerebral ischemia, unspecified type - ICD9: 435.9, ICD10: G45.9 (primary diagnosis) Repeated episodes of LUE weakness. Had another episodes since last visit and evaluated at [facility]. Per available records, diagnosed again with TIA and no changes in medications made. 2. RLS (restless legs syndrome) - ICD9: 333.94, ICD10: G25.81 Symptoms fairly well controlled last visit with gabapentin 900mg Q dinner and 1200mg QHS. ? 3. ZAID (obstructive sleep apnea) - ICD9: 327.23, ICD10: G47.33 Patient's compliance had diminished. New mask ordered last visit. No download yet available to confirm compliance. 4. Insomnia, unspecified type - ICD9: 780.52, ICD10: G47.00 Patient with poor sleep hygiene as she watches tv in bed. Also with anxiety, RLS. Doing well last visit. During interim, given recurrent episodes of TIA, I did have patient see Dr. Zhao for second opinion regarding cerebrovascular disease. Per her impression: 1. Suspect initial event of left-sided weakness in February 2015--non-radiographic left pontine stroke related to hypertensive etiology 2. White matter changes--chronic microvascular ischemia relating to known stroke risk factors: Hypertension hyperlipidemia 3. Subsequent spells in December--- suspect migraine related event: Acephalic migraine with aura 4. Sleep apnea Dr. Zhao did increase patient's Crestor from 5 to 10mg daily. She is also continuing on ASA 81mg daily. She reports that she has been asx since last episode earlier in the year except for non-specific numbness but no weakness, vision changes, speech changes, vertigo, dysphagia. BP has been well controlled. Most recent LDL was 72 and HDL was 42. She continues to have mask issues with her PAP device, and thus is not using it. She states she believes it is because they are fitting her incorrectly and with dentures. She has not used machine since August 2017. When was using did have occasional aerophagia. The RLS is controlled on gabapentin. No side effects on latter except that some mornings she might want to sleep in. However if she has to get up, she can without difficulty. Falling asleep in <30 minutes at night, although getting in bed much earlier and watches tv in bed. Chronic behavior of patient. Last 2 weeks has been drowsy by 10PM and going to bed earlier. REVIEW OF SYSTEMS GENERAL:No weight loss, malaise or fevers. HEENT:Negative for frequent or significant headaches, No changes in hearing or vision, no nose bleeds or other nasal problems NECK:Negative for lumps, goiter, pain and significant neck swelling RESPIRATORY: Negative for cough, wheezing or shortness of breath. CARDIOVASCULAR: Negative for chest pain, leg swelling or palpitations. GASTROINTESTINAL: Negative for abdominal discomfort, blood in stools or black stools or change in bowel habits GENITOURINARY: No history of dysuria, frequency or incontinence MUSCULOSKELETAL: Negative for joint pain or swelling, back pain or muscle pain. NEUROLOGIC:Negative for focal numbness or weakness, headaches and dizziness or syncope, vision changes, speech/languag changes - EXCEPT that as per HPI above. SKIN:Negative for lesions, rash, and itching. PSYCHIATRIC: Negative for sleep disturbance, mood disorder and recent psychosocial stressors. HEMATOLOGIC/LYMPHATIC/IMMUNOLOGIC:Negative for prolonged bleeding, bruising easily or swollen nodes. ENDOCRINE: Negative for cold or heat intolerance, polyuria, polydipsia and goiter. The remainder of the ROS was reviewed and is negative. MEDICATIONS: gabapentin (NEURONTIN) 300 mg capsule Take 3 capsules at dinner and 4 capsules at bedtime. rosuvastatin (CRESTOR) 5 mg tablet 10 mg once daily. fluticasone (FLONASE) 50 mcg/actuation nasal spray VITAMIN B COMPLEX ORAL Take by mouth once daily. methotrexate 2.5 mg tablet Take 2.5 mg by mouth every Sunday. escitalopram oxalate (LEXAPRO) 10 mg tablet Take 10 mg by mouth once daily. famotidine (PEPCID) 20 mg tablet Take 20 mg by mouth twice daily. NITROSTAT 0.4 mg SL tablet aspirin, enteric coated (ASPIRIN, ENTERIC COATED) 81 mg EC tablet Take 81 mg by mouth once daily. MULTI-VITAMIN ORAL Take by mouth. Cholecalciferol, Vitamin D3, (VITAMIN D) 1,000 unit Cap Take 1 capsule by mouth once daily. CPAP FOLIC ACID 1 mg ORAL tablet etanercept(ENBREL 50 MG/ML (0.98 ML) SUB-Q SYRINGE) takes once weekly. escitalopram oxalate (LEXAPRO) 20 mg tablet Take 20 mg by mouth once daily. HISTORIES PAST MEDICAL HISTORY Diagnosis Date - Abdominal pain - Arthritis - Bipolar 1 disorder (HCC) - Chest pain - Constipation - Coronary artery disease - Depression - Diabetes (HCC) - Diarrhea - Disorder of bone and cartilage, unspecified - Dizziness - Ear pain - Generalized anxiety disorder - Headache - History of medical problems PVC - Hyperlipidemia 04/05/2015 - Hypertension - Irregular heartbeat beneign irregular heartbeat - Left pontine stroke (HCC) 07/19/2017 - Mitral valve prolapse - Nausea - Numbness and tingling - Obstructive sleep apnea - ZAID (obstructive sleep apnea) - Osteoporosis - Palpitations - Rheumatoid arthritis(714.0) - TIA (transient ischemic attack) FAMILY HISTORY Problem Relation Age of Onset - Hypertension Mother - Diabetes Mother age 60 when on insulin - Cancer Father PROSTATE AGE 73 - Arthritis Sister - Diabetes Maternal Grandfather - Cancer Sister Uterus/Colon cancer with mets - ??? - at age 68 - Seizures Daughter - migraines [Other] [OTHER] Daughter - Stroke Daughter - hypokalemic periodic paralysis [Other] [OTHER] Daughter - Prostate Cancer Father - Heart Mother - high cholesterol [Other] [OTHER] - AVM [Other] [OTHER] Daughter - ICH [Other] [OTHER] Daughter SOCIAL HISTORY Social History Substance Use Topics - Smoking status: Never Smoker - Smokeless tobacco: Never Used - Alcohol use No PHYSICAL EXAMINATION BP 114/86 (BP Site: Left Arm, BP Position: Sitting, BP Cuff Size: Regular Adult) Pulse 72 Wt 60.3 kg (133 lb) LMP 04/11/2005 SpO2 97% BMI 22.83 kg/m? GENERAL EXAM: General appearance: NAD, pleasant. HEENT: NC/AT, nasal congestion absent, no oral lesions, membranes moist. [place] IV. Moderate retrognathia. NECK: No masses, supple. Lungs: CTA bilaterally. CV: RRR nl S1, S2, no murmurs. No carotid bruits. Abd: Soft, nontender, nondistended. Bowel sounds present. Extr: No cyanosis, clubbing or edema. No evidence of fasciculations. Extremity pulses palpable and normal. Skin: Cool to touch. No rash. ? NEUROLOGICAL EXAM: General: Awake, alert, oriented x3 (person,place,time), speech fluent, no dysarthria; comprehension, naming, repetition intact. Short and shelter memory intact. Fund of knowledge grossly normal by MOCA. CN: PERRL, fundi appear normal including no evidence of papilledema, EOMI and without nystagmus, VFF to confrontation, facial sensation and strength are normal and symmetric, hearing is intact to finger rub bilaterally, palate and tongue movements are intact and symmetric. SCM and trapezius strength normal. Motor: Normal tone, bulk and strength (5/5) bilaterally (throughout extremities x4). Reflexes: 1/4 and symmetric, plantar stimulation is flexor. Coordination: FNF, CHON, HTS intact. No tremors. Sensation: LT, PP, vibration intact throughout. No evidence of neglect. Gait: Narrow based and stable with normal stride and arm swing. Romberg normal. ? Assessment and Plan: 1. Transient cerebral ischemia, unspecified type - ICD9: 435.9, ICD10: G45.9 (primary diagnosis) Patient will follow up with Dr. Zhao. No change in meds today. Continue Crestor and ASA. BP goal <140/90. Glucose goal <140. ? 2. RLS (restless legs syndrome) - ICD9: 333.94, ICD10: G25.81 Symptoms controlled with gabapentin 900mg Q dinner and 1200mg QHS. No changes to medications at this time. I did answer patient's question regarding gabapentin given recent news stories. OARRS website checked and validated. All prescriptions have been APPROPRIATELY filled. No suspicious activity was identified.- 10/26/2017 by Yann Diallo MD ? 3. ZAID (obstructive sleep apnea) - ICD9: 327.23, ICD10: G47.33 Still poor compliance due to mask fit issues. Will send for mask fit at [facility] sleep lab today. If still issues with aerophagia once mask fit complete, consider decrease in pressure setting. ? 4. Insomnia, unspecified type - ICD9: 780.52, ICD10: G47.00 Overall stable and doing well with sleep onset and maintenance insomnia. Again, multifactorial insomnia including poor sleep hygiene, anxiety, RLS. No additional recs at this time. Recommendations to improve sleep hygiene provided to patient including: Avoid going to bed with a negative mind set. If one finds themself lying awake and worrying in bed, try to clear the mind by makin a to-do list before going to bed. Go to sleep and wake up at the same time EVERYday. Relax before going to bed: reading, listening to music, taking a bath. Create a positive sleep environment: comfortable, quiet, dark. Stop clockwatching. Get out of bed and do a relaxing activity if not alseep in 20 minutes. Avoid using bed for activities other than sleep and intimate relations. Avoid naps during the day. Avoid alcohol and smoking. Exercise regularly but not within four hours of bedtime. I spent 40 minutes in the visit, with more than 50% of the total [id number] time of the visit in counseling / coordination of care. Referring Provider: SELF [[id number]] Allergies As of Date: 10/26/2017 Noted Allergy Reaction AUGMENTIN (AMOXICILLIN-POT CLAVUL*05/04/2017 2 - Rash Date Reviewed: 10/26/2017 Reviewed by: Yann Diallo Jr. - Fully Assessed Reason for Visit: Follow Up [171] Cmt: 3 months Primary Visit Diagnosis:Transient cerebral ischemia, unspecified type [G45.9] Other Visit Diagnoses:RLS (restless legs syndrome) [G25.81] ZAID (obstructive sleep apnea) [G47.33] Insomnia, unspecified type [G47.00] Order(s):gabapentin (NEURONTIN) 300 mg capsuleTake 3 capsules at dinner and 4 capsules at bedtime.Disp: 630 capsuleRfl: 0 CPAP FULL FACE MASK [[id number]] Order #: [id number] Prescriptions as of 10/26/2017 Sig: GABAPENTIN 300 MG CAPSULE Take 3 capsules at dinner and* ROSUVASTATIN 5 MG TABLET 10 mg once daily. FLUTICASONE 50 MCG/ACTUATION * VITAMIN B COMPLEX ORAL Take by mouth once daily. METHOTREXATE SODIUM 2.5 MG TA* Take 2.5 mg by mouth every Fr* ESCITALOPRAM 10 MG TABLET Take 10 mg by mouth once shane* FAMOTIDINE 20 MG TABLET Take 20 mg by mouth twice tracy* NITROSTAT 0.4 MG SUBLINGUAL T* ASPIRIN 81 MG TABLET,DELAYED * Take 81 mg by mouth once shane* MULTI-VITAMIN ORAL Take by mouth. * CHOLECALCIFEROL (VITAMIN D3) * Take 1 capsule by mouth once * * FOLIC ACID 1 MG TABLET * ENBREL 50 MG/ML (0.98 ML) SUB* takes once weekly. ESCITALOPRAM 20 MG TABLET Take 20 mg by mouth once shane* Problem List As Of Date 10/26/2017 Noted Resolved Rheumatoid arthritis (HCC) [M06.9] Priority: Moderate More... More... More... Abnormal Stress Test [R94.39] INVALID FOR* More... 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 PVC's INVALID FOR* More... Osteopenia [M85.80] INVALID FOR* Routine Gynecological Examination [Z01.419] INVALID FOR* Class: Chronic More... GERD (Gastroesophageal Reflux Disease) [K21.9] INVALID FOR* More... Impaired Fasting Glucose [R73.01] INVALID FOR* Neoplasm of uncertain behavior of skin [D48.5] INVALID FOR* Irritable bowel syndrome with diarrhea [K58.0] INVALID FOR* Hyperlipidemia [E78.5] INVALID FOR* ZAID (obstructive sleep apnea) [G47.33] INVALID FOR* Multiple thyroid nodules [E04.2] INVALID FOR* TIA (transient ischemic attack) [G45.9] INVALID FOR* Anxiety neurosis [F41.1] INVALID FOR* RBBB [I45.10] INVALID FOR* Micrognathia [M26.09] INVALID FOR* Family history of colon cancer [Z80.0] INVALID FOR*04/08/2015 Migraine aura without headache [G43.109] INVALID FOR* Left pontine stroke (HCC) [I63.50] INVALID FOR* Cerebrovascular small vessel disease [I67.9] INVALID FOR* Prescriptions ordered this encounter Disp Refills Start End GABAPENTIN 300 MG CAPSULE 630 * 0 10/26/2017 01/27/2018 Sig: Take 3 capsules at dinner and 4 capsules at bedtime. Medications Discontinued During This Encounter gabapentin (NEURONTIN) 300 mg capsule 630 * 0 08/06/2017 10/26/2017 Sig: Take 3 capsules at dinner and 4 capsules at bedtime. Disc: Reason for discontinue is not on file. CPAP 10/26/2017 Class: Med Update Sig: Disc: Reason for discontinue is not on file. Disposition: Return in about 6 months (around 04/28/2018). Follow-up and Disposition History Recorded Encounter Status:Closed by YANN DIALLO on 10/26/17 PROGRESS Observed: 10/26/2017 Status: COMPLETED Source: [place] 10:59 AM [facility] REPOSITORY O ID: [id number] Author: Yann Diallo Jr. Service: (none) Author Type: Physician Type: Progress Notes Filed: 10/26/2017 11:41 AM Note Text: ESTABLISHED PATIENT VISIT HISTORY OF PRESENT ILLNESS: Claire Guevara is a 62 year old female, BMI 22.83 kg/m2 with a PMH significant for: 1. Transient cerebral ischemia, unspecified type - ICD9: 435.9, ICD10: G45.9 (primary diagnosis) Repeated episodes of LUE weakness. Had another episodes since last visit and evaluated at [facility]. Per available records, diagnosed again with TIA and no changes in medications made. 2. RLS (restless legs syndrome) - ICD9: 333.94, ICD10: G25.81 Symptoms fairly well controlled last visit with gabapentin 900mg Q dinner and 1200mg QHS. ? 3. ZAID (obstructive sleep apnea) - ICD9: 327.23, ICD10: G47.33 Patient's compliance had diminished. New mask ordered last visit. No download yet available to confirm compliance. 4. Insomnia, unspecified type - ICD9: 780.52, ICD10: G47.00 Patient with poor sleep hygiene as she watches tv in bed. Also with anxiety, RLS. Doing well last visit. During interim, given recurrent episodes of TIA, I did have patient see Dr. Zhao for second opinion regarding cerebrovascular disease. Per her impression: 1. Suspect initial event of left-sided weakness in February 2015--non-radiographic left pontine stroke related to hypertensive etiology 2. White matter changes--chronic microvascular ischemia relating to known stroke risk factors: Hypertension hyperlipidemia 3. Subsequent spells in December--- suspect migraine related event: Acephalic migraine with aura 4. Sleep apnea Dr. Zhao did increase patient's Crestor from 5 to 10mg daily. She is also continuing on ASA 81mg daily. She reports that she has been asx since last episode earlier in the year except for non-specific numbness but no weakness, vision changes, speech changes, vertigo, dysphagia. BP has been well controlled. Most recent LDL was 72 and HDL was 42. She continues to have mask issues with her PAP device, and thus is not using it. She states she believes it is because they are fitting her incorrectly and with dentures. She has not used machine since August 2017. When was using did have occasional aerophagia. The RLS is controlled on gabapentin. No side effects on latter except that some mornings she might want to sleep in. However if she has to get up, she can without difficulty. Falling asleep in <30 minutes at night, although getting in bed much earlier and watches tv in bed. Chronic behavior of patient. Last 2 weeks has been drowsy by 10PM and going to bed earlier. REVIEW OF SYSTEMS GENERAL:No weight loss, malaise or fevers. HEENT:Negative for frequent or significant headaches, No changes in hearing or vision, no nose bleeds or other nasal problems NECK:Negative for lumps, goiter, pain and significant neck swelling RESPIRATORY: Negative for cough, wheezing or shortness of breath. CARDIOVASCULAR: Negative for chest pain, leg swelling or palpitations. GASTROINTESTINAL: Negative for abdominal discomfort, blood in stools or black stools or change in bowel habits GENITOURINARY: No history of dysuria, frequency or incontinence MUSCULOSKELETAL: Negative for joint pain or swelling, back pain or muscle pain. NEUROLOGIC:Negative for focal numbness or weakness, headaches and dizziness or syncope, vision changes, speech/languag changes - EXCEPT that as per HPI above. SKIN:Negative for lesions, rash, and itching. PSYCHIATRIC: Negative for sleep disturbance, mood disorder and recent psychosocial stressors. HEMATOLOGIC/LYMPHATIC/IMMUNOLOGIC:Negative for prolonged bleeding, bruising easily or swollen nodes. ENDOCRINE: Negative for cold or heat intolerance, polyuria, polydipsia and goiter. The remainder of the ROS was reviewed and is negative. MEDICATIONS: gabapentin (NEURONTIN) 300 mg capsule Take 3 capsules at dinner and 4 capsules at bedtime. rosuvastatin (CRESTOR) 5 mg tablet 10 mg once daily. fluticasone (FLONASE) 50 mcg/actuation nasal spray VITAMIN B COMPLEX ORAL Take by mouth once daily. methotrexate 2.5 mg tablet Take 2.5 mg by mouth every Sunday. escitalopram oxalate (LEXAPRO) 10 mg tablet Take 10 mg by mouth once daily. famotidine (PEPCID) 20 mg tablet Take 20 mg by mouth twice daily. NITROSTAT 0.4 mg SL tablet aspirin, enteric coated (ASPIRIN, ENTERIC COATED) 81 mg EC tablet Take 81 mg by mouth once daily. MULTI-VITAMIN ORAL Take by mouth. Cholecalciferol, Vitamin D3, (VITAMIN D) 1,000 unit Cap Take 1 capsule by mouth once daily. CPAP FOLIC ACID 1 mg ORAL tablet etanercept(ENBREL 50 MG/ML (0.98 ML) SUB-Q SYRINGE) takes once weekly. escitalopram oxalate (LEXAPRO) 20 mg tablet Take 20 mg by mouth once daily. HISTORIES PAST MEDICAL HISTORY Diagnosis Date - Abdominal pain - Arthritis - Bipolar 1 disorder (HCC) - Chest pain - Constipation - Coronary artery disease - Depression - Diabetes (HCC) - Diarrhea - Disorder of bone and cartilage, unspecified - Dizziness - Ear pain - Generalized anxiety disorder - Headache - History of medical problems PVC - Hyperlipidemia 04/05/2015 - Hypertension - Irregular heartbeat beneign irregular heartbeat - Left pontine stroke (HCC) 07/19/2017 - Mitral valve prolapse - Nausea - Numbness and tingling - Obstructive sleep apnea - ZAID (obstructive sleep apnea) - Osteoporosis - Palpitations - Rheumatoid arthritis(714.0) - TIA (transient ischemic attack) FAMILY HISTORY Problem Relation Age of Onset - Hypertension Mother - Diabetes Mother age 60 when on insulin - Cancer Father PROSTATE AGE 73 - Arthritis Sister - Diabetes Maternal Grandfather - Cancer Sister Uterus/Colon cancer with mets - ??? - at age 68 - Seizures Daughter - migraines [Other] [OTHER] Daughter - Stroke Daughter - hypokalemic periodic paralysis [Other] [OTHER] Daughter - Prostate Cancer Father - Heart Mother - high cholesterol [Other] [OTHER] - AVM [Other] [OTHER] Daughter - ICH [Other] [OTHER] Daughter SOCIAL HISTORY Social History Substance Use Topics - Smoking status: Never Smoker - Smokeless tobacco: Never Used - Alcohol use No PHYSICAL EXAMINATION BP 114/86 (BP Site: Left Arm, BP Position: Sitting, BP Cuff Size: Regular Adult) Pulse 72 Wt 60.3 kg (133 lb) LMP 04/11/2005 SpO2 97% BMI 22.83 kg/m? GENERAL EXAM: General appearance: NAD, pleasant. HEENT: NC/AT, nasal congestion absent, no oral lesions, membranes moist. [place] IV. Moderate retrognathia. NECK: No masses, supple. Lungs: CTA bilaterally. CV: RRR nl S1, S2, no murmurs. No carotid bruits. Abd: Soft, nontender, nondistended. Bowel sounds present. Extr: No cyanosis, clubbing or edema. No evidence of fasciculations. Extremity pulses palpable and normal. Skin: Cool to touch. No rash. ? NEUROLOGICAL EXAM: General: Awake, alert, oriented x3 (person,place,time), speech fluent, no dysarthria; comprehension, naming, repetition intact. Short and shelter memory intact. Fund of knowledge grossly normal by MOCA. CN: PERRL, fundi appear normal including no evidence of papilledema, EOMI and without nystagmus, VFF to confrontation, facial sensation and strength are normal and symmetric, hearing is intact to finger rub bilaterally, palate and tongue movements are intact and symmetric. SCM and trapezius strength normal. Motor: Normal tone, bulk and strength (5/5) bilaterally (throughout extremities x4). Reflexes: 1/4 and symmetric, plantar stimulation is flexor. Coordination: FNF, CHON, HTS intact. No tremors. Sensation: LT, PP, vibration intact throughout. No evidence of neglect. Gait: Narrow based and stable with normal stride and arm swing. Romberg normal. ? Assessment and Plan: 1. Transient cerebral ischemia, unspecified type - ICD9: 435.9, ICD10: G45.9 (primary diagnosis) Patient will follow up with Dr. Zhao. No change in meds today. Continue Crestor and ASA. BP goal <140/90. Glucose goal <140. ? 2. RLS (restless legs syndrome) - ICD9: 333.94, ICD10: G25.81 Symptoms controlled with gabapentin 900mg Q dinner and 1200mg QHS. No changes to medications at this time. I did answer patient's question regarding gabapentin given recent news stories. OARRS website checked and validated. All prescriptions have been APPROPRIATELY filled. No suspicious activity was identified.- 10/26/2017 by Yann Diallo MD ? 3. ZAID (obstructive sleep apnea) - ICD9: 327.23, ICD10: G47.33 Still poor compliance due to mask fit issues. Will send for mask fit at [facility] sleep lab today. If still issues with aerophagia once mask fit complete, consider decrease in pressure setting. ? 4. Insomnia, unspecified type - ICD9: 780.52, ICD10: G47.00 Overall stable and doing well with sleep onset and maintenance insomnia. Again, multifactorial insomnia including poor sleep hygiene, anxiety, RLS. No additional recs at this time. Recommendations to improve sleep hygiene provided to patient including: Avoid going to bed with a negative mind set. If one finds themself lying awake and worrying in bed, try to clear the mind by makin a to-do list before going to bed. Go to sleep and wake up at the same time EVERYday. Relax before going to bed: reading, listening to music, taking a bath. Create a positive sleep environment: comfortable, quiet, dark. Stop clockwatching. Get out of bed and do a relaxing activity if not alseep in 20 minutes. Avoid using bed for activities other than sleep and intimate relations. Avoid naps during the day. Avoid alcohol and smoking. Exercise regularly but not within four hours of bedtime. I spent 40 minutes in the visit, with more than 50% of the total [id number] time of the visit in counseling / coordination of care. LIPID PROFILE Collected: 10/09/2017 Status: F Source: [facility] VIVAR 8:59 AM [facility] REPOSITORY TYPE CODE TESTS RESULT OUT OF REFERENCE UNITS RANGE LAB LIPID PROFILE(LOIN C) LIPID PROFILE Result Comment: LIPID PROFILE LAB TRIGLYCERIDE(LOINC) 0 - 150 mg/dl TRIGLYCERIDE 94 LAB CHOLESTEROL(LOINC) 0 - 200 mg/dl CHOLESTEROL 117 LAB HDL(LOINC) 40 - 60 mg/dl HDL 41 LAB CHOL/HDL(LOINC) 0.0 - 5.0 CHOL/HDL 2.9 LAB LDL(LOINC) 0 - 129 mg/dl LDL 57 Performed By: #### [id number] #### [facility],[address] [place] [address] HEPATIC FUNCTION Collected: 10/09/2017 Status: F Source: ABDIAS VIVAR PANEL 8:59 AM [facility] REPOSITORY TYPE CODE TESTS RESULT OUT OF REFERENCE UNITS RANGE LAB HEPATIC FUNCTION PANEL(LOINC) HEPATIC FUNCTION PANEL Result Comment: HEPATIC FUNCTION PROFILE LAB ALBUMIN(LOINC) 3.4 - 4.8 g/dL ALBUMIN 4.1 LAB ALK PHOS(LOINC) 38 - 126 U/L ALK PHOS 61 LAB AST/SGOT(LOINC) 13 - 39 U/L AST/SGOT 26 LAB ALT/SGPT(LOINC) 8 - 35 U/L ALT/SGPT 20 LAB TOTAL BILI(LOINC) 0.0 - 1.5 mg/dl TOTAL BILI 0.5 LAB DIRECT BILI(LOINC) 0.0 - 0.1 mg/dl DIRECT BILI 0.1 LAB TOTAL PROTEIN(LOINC) 6.4 - 8.3 g/dl TOTAL PROTEIN 6.9 Performed By: #### [id number] #### [facility],[address] [place] [address] CBC Collected: 09/14/2017 Status: F Source: ABDIAS VIVAR 10:18 AM [facility] REPOSITORY TYPE CODE TESTS RESULT OUT OF RANGE REFERENCE UNITS LAB CBC(LOINC) CBC Result Comment: CBC-COMPLETE BLOOD COUNT LAB WBC(LOINC) 4.5 - 10.8 x 10EE3/UL WBC 4.5 LAB RBC(LOINC) 4.10 - x 10EE6/UL 5.30 RBC 4.61 LAB HEMOGLOBIN(LOINC) 12.0 - g/dl 16.0 HEMOGLOBIN 14.5 LAB HEMATOCRIT(LOINC) 34.0 - % 46.0 HEMATOCRIT 43.4 LAB MCV(LOINC) 80 - 99 fl MCV 94 LAB MCH(LOINC) 27 - 33 pg MCH 31 LAB MCHC(LOINC) 32 - 36 X10 3 MCHC 33 LAB RDW/CV(LOINC) 12.0 - % 15.6 RDW/CV 15.3 LAB PLATELET(LOINC) 150 - 450 x10EE3/UL PLATELET Low 138 LAB MPV(LOINC) 6.6 - 10.5 fl MPV 9.0 Result Comment: AUTOMATED DIFFERENTIAL LAB NEUT %(LOINC) 46.0 - 76.0 % Low NEUT % 45.6 LAB LYMPH %(LOINC) 20.0 - 45.0 % LYMPH % 36.8 LAB MONOS %(LOINC) 0.0 - 10.0 % MONOS % High 11.7 LAB EO %(LOINC) 0.0 - 7.0 % EO % 5.0 LAB BASO %(LOINC) 0.0 - 2.0 % BASO % 0.9 LAB Lymph #(LOINC) 0.80 - 2.80 x10EE3/U L Lymph # 1.70 LAB Neut #(LOINC) 1.50 - 7.10 x10EE3/U L Neut # 2.10 LAB Ramsey #(LOINC) 0.20 - 1.00 x10EE3/U L Ramsey # 0.50 LAB EO #(LOINC) 0.00 - 0.50 x10EE3/U L EO # 0.20 LAB Baso #(LOINC) 0.00 - 0.10 x10EE3/U L Baso # 0.00 LAB MANUAL DIFF(LOINC) MANUAL DIFF N/A LAB MORPHOLOGY(LOINC ) MORPHOLOGY N/A Result Comment: {CD] Performed By: #### [id number] #### [facility],[address] [place], [place] [id number] C-REACTIVE PROTEIN Collected: 09/14/2017 Status: F Source: ABDIAS BERNARDOPR 10:18 AM [facility] REPOSITORY TYPE CODE TESTS RESULT OUT OF RANGE REFERENCE UNITS LAB CRP(LOINC) 0.00 - 1.00 mg/dl CRP 0.30 Performed By: #### [id number] #### [place] [address] ALBUMIN PLASMA Collected: 09/14/2017 Status: F [facility] AM [facility] REPOSITORY TYPE CODE TESTS RESULT OUT OF REFERENCE UNITS RANGE LAB ALBUMIN(BRYCE 3.4 - 4.8 g/dL HI) ALBUMIN 4.3 Performed By: #### [id number] #### [place] [address] SGOT (AST) Collected: 09/14/2017 Status: F Source: [facility] 10:18 [facility] REPOSITORY TYPE CODE TESTS RESULT OUT OF RANGE REFERENCE UNITS LAB AST/SGOT(LO 13 - 39 U/L INC) AST/SGOT 22 Performed By: #### [id number] #### [place] [address] SGPT (ALT) Collected: 09/14/2017 Status: F Source: ABDIAS GARAYBOSSMAN 10:18 AM [facility] REPOSITORY TYPE CODE TESTS RESULT OUT OF RANGE REFERENCE UNITS LAB ALT/SGPT(LO 8 - 35 U/L INC) ALT/SGPT 15 Performed By: #### [id number] #### [place] [address] BUN/CREAT EGFR Collected: 09/14/2017 Status: F Source: ABDIAS GARAYBOSSMAN (NON-) 10:18 AM [facility] REPOSITORY TYPE CODE TESTS RESULT OUT OF RANGE REFERENCE UNITS LAB BUN/CREAT eGFR (NON-MAAME N BUN/CREAT EAST TIMOR[place])(L eGFR OINC) (NON-) Result Comment: BUN/CREATININE eGFR NON-) LAB BUN(LOINC) 6 - 20 mg/dl BUN 10 LAB CREATININE(LOINC) 0.6 - 1.2 mg/dl CREATININE 0.7 LAB AGE(LOINC) years AGE 62 LAB eGFR(LOINC) 60 - 999 ML/MINUTE eGFR >60 Result Comment: ACCORDING TO THE NATIONAL KIDNEY DISEASE EDUCATION PROGRAM(NKDE),A NORMAL eGFR IS A VALUE GREATER THAN OR EQUAL TO 60 ML/MIN/1.73 SQ METERS.KIDNEY DISEASE MAY BE PRESENT WHEN THE eGFR IS LESS THAN 60 ML/MIN/1.73 SQ METERS.VALUES LESS THEN 15 ML/MIN/1.73 SQ METERS INDICATE KIDNEY FAILURE.THIS TEST SHOULD ONLY BE USED FOR PATIENTS 18 AND OLDER. Performed By: #### [id number] #### [place] [address] SEDRATE Collected: 09/14/2017 Status: F Source: [facility] 10:18 AM [facility] TYPE CODE TESTS RESULT OUT OF REFERENCE UNITS RANGE LAB SEDRATE(BRYCE 0 - 30 mm/hr NC) SEDRATE 19 Performed By: #### [id number] #### [place] [address] US THYROID Observed: 08/22/2017 Status: F Source: [facility] 11:05 AM [place] [address] Patient: CLAIRE GUEVARA Phone#: : [phone] Age: 62 Gender: F Pt. Type: Out Account: [id number] Location: [facility] Ordering: DEMETRIO NÚÑEZ Exam Date: 08/22/2017/10:43 Family Phys: MIKO AVILA Charge Code: 780326 Physician: [place] Order #: [id number] DLP Dose#: PROCEDURE: THYROID ULTRASOUND COMPARISON: None. INDICATIONS: Nodules TECHNIQUE: High-resolution ultrasound was performed of the thyroid gland. FINDINGS: RIGHT LOBE: The right thyroid lobe measures 4.4 x 1.3 x 1.5 cm. There is a benign appearing hypoechoic focus in the upper pole measuring 3 x 2 x 2 mm. In the lower pole there is a spongiform 3 mm focus with benign features. LEFT LOBE: The left thyroid lobe measures 3.8 x 0.9 x 1.1 cm. In the upper pole is a 7 x 6 x 4 mm benign-appearing spongiform nodule. ISTHMUS: Normal. No visible mass, cyst, calcification, enlargement, or abnormal echotexture. Isthmus measures 0.2 cm. OTHER: None. CONCLUSION: 1. Bilateral benign nodular foci. Dictated by: Juany Huerta MD on 08/22/2017 at 11:15 Approved by: Juany Huerta MD on 08/22/2017 at 11:15 BREAST LIMITED Observed: 08/01/2017 Status: F Source: [place] [facility] 10:46 AM [facility] REPOSITORY [facility] Imaging Services [address] [place] [address] Breast Limited Unilateral MR#: [id number] Acct: [id number] Name: CLAIRE GUEVARA Rep #: [id number] : 1955 F 62 From: Dave Lutz MD PCP: Miko Avila MD Status: REG CLI Study: Breast Limited Unilateral Date of Exam: 08/01/17 Exam# [id number] Ordering Dr: Barbara Shields MD STUDY: ULTRASOUND BREAST - LEFT REASON FOR EXAM: Female, 62 years old. Six-month follow- up examination. TECHNIQUE: Axial and longitudinal images of the LEFT breast were performed with a high resolution ultrasound transducer. COMPARISON: Comparison is made with prior study dated January 18, 2017. FINDINGS: LEFT Breast: There is evidence of a 3 mm x 3 mm x 2 mm cyst at 8:00 position of the breast at 1 cm from the nipple. US/Breast Limited Unilateral IMPRESSION: 3 mm x 3 mm x 2 mm cyst at the 8:00 position in the breast at 1 cm from the nipple. ASSESSMENT CATEGORY: BIRADS Category 2: Benign. A letter regarding these results will be sent to the patient by the facility within 30 days. Electronically Signed: Dave Lutz MD at 13:27 EST Tel [phone], Service support , CC: Barbara Shields MD; Miko Avila MD [place] Loader: Signed PROGRESS Observed: 07/19/2017 Status: COMPLETED Source: [place] 9:[address] [facility] REPOSITORY HNO ID: [id number] Author: Jaron Spence) Martha Service: (none) Author Type: Physician Type: Progress Notes Filed: 07/19/2017 6:57 PM Note Text: [facility] Initial Office Visit Consultation is requested by: Yann Diallo MD [address] [place] [id number] PCP: Miko Avila MD ([facility]) [address] [place] [address] [place] [address] NURSING INTAKE NOTE : Reason for visit: Second opinion recurrent TIA's Date of last event: 06/2017 History of 2 prior events 02/2015; 12/2016 L sided numbness and word finding difficulty History of event: onset L foot and L hand numbness onset during massage. Lasted about 10 minutes Antiplatelet, Anticoalulant, Statin: Aspirin and Rosuvastatin Side effects : No Refills needed: No Residual deficits: No residual deficits PT/OT/ST: No therapy needs Disposition: Home Next phase of care: Not Applicable Interval history: No repeat episodes or new symptoms Questions for visit: Cause on her symptoms, risks related to symptoms is she stroke risk - has medical alert tag- does she need to wear, is it Ok for her to driving. CEREBROVASCULAR HISTORY History of Recent Event: Claire Guevara is a 62 year old female who presents for evaluation of TIA. Patient is a 62-year-old female referred to clinic today for evaluation of spells that she's had since 2014February 2015: Patient had awoken up with left facial droop left leg weakness--also had hypertension uncontrolled Symptoms started improving after 24 hours, recalls dragging her leg while walking Started aspirin 81 mg daily--- but stopped it after a few months No associated headache No vision changes December 12, 2016: Patient had left arm numbness weakness that lasted for one hour Was evaluated at [facility] No loss of awareness No headache She was started on aspirin again Stopped it after she had nasal bleeds during the winterJune 25, 2017: Patient had an episode of left leg and arm numbness--no noted motor deficits or complaints Was associated with a headache on route to the hospital Symptoms completely resolved in 10-15 minutes Headache resolved after several hours-with medication during her hospitalization Prior history of headaches: 1-2 headaches per year Severe bifrontal throbbing Associated with nausea Photophobia phonophobia present Her daughter also has migraines Patient has never been diagnosed with migraines No history of ocular migraine Denies alcohol or smoking history No history of complete vision loss that optic neuritis She has diagnosed hypertension 10 years ago currently is not on meds well controlled since losing weight and with exercise diet and lifestyle modifications Hyperlipidemia also states to be well controlled Significant history of generalized anxiety disorder PAST MEDICAL HISTORY Diagnosis Date - Abdominal pain - Arthritis - Bipolar 1 disorder (HCC) - Chest pain - Constipation - Coronary artery disease - Depression - Diabetes (HCC) - Diarrhea - Disorder of bone and cartilage, unspecified - Dizziness - Ear pain - Generalized anxiety disorder - Headache - History of medical problems PVC - Hyperlipidemia 04/05/2015 - Hypertension - Irregular heartbeat beneign irregular heartbeat - Mitral valve prolapse - Nausea - Numbness and tingling - Obstructive sleep apnea - ZAID (obstructive sleep apnea) - Osteoporosis - Palpitations - Rheumatoid arthritis(714.0) - TIA (transient ischemic attack) PAST SURGICAL HISTORY Procedure Laterality Date - APPENDECTOMY age 48 at time of gallbladder - APPENDECTOMY 2012 - CHOLECYSTECTOMY 2012 - COLONOSCOP W/ OR W/O [facility] SPEC 08/13 Colonoscopy - COLONOSCOP W/ OR W/O [facility] SPEC 04/03/13 Colonoscopy - COLONOSCOP W/ OR W/O [facility] SPEC 04/08/15 Colonoscopy - EGD W/O OR W/BRUSH/WASH 04/03/13 EGD - FOOT LEFT OP SURGERY 06/2014 - HEART CATHETERIZATION 08/04/08 AND 10/2013 Normal Heart Cath --- [facility], Dr. Ortiz - LAPAROSCOPIC CHOLEYCYSTECTOMY 09/11 Cholecystectomy, lap - PAST SURGICAL HISTORY OF 06/2014 bunionectomy - REMOVAL OF HEEL SPUR Right 02/20 - SIGMOIDOSCOPY FLEX DIAG 09/12/2010 Sigmoidoscopy, flexible - VAGINAL HYSTERECTOMY 2008 FAMILY HISTORY Problem Relation Age of Onset - Hypertension Mother - Diabetes Mother age 60 when on insulin - Cancer Father PROSTATE AGE 73 - Arthritis Sister - Diabetes Maternal Grandfather - Cancer Sister Uterus/Colon cancer with mets - ??? 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 escitalopram oxalate (LEXAPRO) 10 mg tablet Take 10 mg by mouth once daily. famotidine (PEPCID) 20 mg tablet Take 20 mg by mouth twice daily. ALPRAZolam (XANAX) 0.25 mg tablet amLODIPine (NORVASC) 2.5 mg tablet amoxicillin (AMOXIL) 875 mg tablet etodolac (LODINE) 300 mg capsule HYDROcodone-Acetaminophen 5-300 mg tab isosorbide mononitrate ER (IMDUR) 30 mg 24 hr tablet methotrexate sodium 25 mg/mL soln NITROSTAT 0.4 mg SL tablet EZETIMIBE (ZETIA ORAL) Take 10 mg by mouth once daily. hyoscyamine sublingual (LEVSIN/SL) 0.125 mg subl Take 1 tablet by mouth every 4 hours as needed. Omeprazole 40 mg capsule Take 40 mg by mouth once daily. aspirin, enteric coated (ASPIRIN, ENTERIC COATED) 81 mg EC tablet Take 81 mg by mouth once daily. methotrexate pf (RASUVO) 25 mg/0.5 mL subcutaneous auto-injector Inject subcutaneously. Inject 0.6 ml weekly escitalopram oxalate (LEXAPRO) 20 mg tablet Take 20 mg by mouth once daily. magnesium oxide (MAGOX) 400 mg tablet Take 400 mg by mouth once daily. MULTI-VITAMIN ORAL Take by mouth. Cholecalciferol, Vitamin D3, (VITAMIN D) 1,000 unit Cap Take 1 capsule by mouth once daily. CPAP FOLIC ACID 1 mg ORAL tablet etanercept(ENBREL 50 MG/ML (0.98 ML) SUB-Q SYRINGE) takes once weekly. No current facility-administered medications for this visit. MEDICATIONS Current Outpatient Prescriptions: gabapentin (NEURONTIN) 300 mg capsule Take 3 capsules at dinner and 4 capsules at bedtime. Disp: 630 capsule Rfl: 0 escitalopram oxalate (LEXAPRO) 10 mg tablet Take 10 mg by mouth once daily. Disp: Rfl: famotidine (PEPCID) 20 mg tablet Take 20 mg by mouth twice daily. Disp: Rfl: ALPRAZolam (XANAX) 0.25 mg tablet Disp: Rfl: amLODIPine (NORVASC) 2.5 mg tablet Disp: Rfl: amoxicillin (AMOXIL) 875 mg tablet Disp: Rfl: etodolac (LODINE) 300 mg capsule Disp: Rfl: HYDROcodone-Acetaminophen 5-300 mg tab Disp: Rfl: isosorbide mononitrate ER (IMDUR) 30 mg 24 hr tablet Disp: Rfl: methotrexate sodium 25 mg/mL soln Disp: Rfl: NITROSTAT 0.4 mg SL tablet Disp: Rfl: EZETIMIBE (ZETIA ORAL) Take 10 mg by mouth once daily. Disp: Rfl: hyoscyamine sublingual (LEVSIN/SL) 0.125 mg subl Take 1 tablet by mouth every 4 hours as needed. Disp: 30 tablet Rfl: 2 Omeprazole 40 mg capsule Take 40 mg by mouth once daily. Disp: Rfl: aspirin, enteric coated (ASPIRIN, ENTERIC COATED) 81 mg EC tablet Take 81 mg by mouth once daily. Disp: Rfl: methotrexate pf (RASUVO) 25 mg/0.5 mL subcutaneous auto-injector Inject subcutaneously. Inject 0.6 ml weekly Disp: Rfl: escitalopram oxalate (LEXAPRO) 20 mg tablet Take 20 mg by mouth once daily. Disp: Rfl: magnesium oxide (MAGOX) 400 mg tablet Take 400 mg by mouth once daily. Disp: Rfl: MULTI-VITAMIN ORAL Take by mouth. Disp: Rfl: Cholecalciferol, Vitamin D3, (VITAMIN D) 1,000 unit Cap Take 1 capsule by mouth once daily. Disp: Rfl: 0 CPAP Disp: Rfl: FOLIC ACID 1 mg ORAL tablet Disp: Rfl: etanercept(ENBREL 50 MG/ML (0.98 ML) SUB-Q SYRINGE) takes once weekly. Disp: Rfl: 0 No current facility-administered medications for this visit. REVIEW OF SYSTEMS ALLERGIES Allergen Reactions - Augmentin [Amoxicil* Rash 10 point ROS done and negative except as above in HPI PHYSICAL EXAMINATION NIH Stroke Scale: 1a. Mental Status - LOC 0 = Alert and Attentive 1b. LOC Questions 0 = Correct age and month 1c. LOC-Commands 0 = Both 2. Gaze 0 = Normal 3. Visual Field 0 = Full 4. Facial Weakness 0 = Normal 5a. Left Arm 0 = No drift 5b. Right Arm 0 = No drift 6a. Left Leg 0 = No drift 6b. Right Leg 0 = No drift 7. Ataxia 0 = Absent 8. Sensory 0 = Normal 9. Aphasia 0 = None 10. Dysarthria 0 = Absent 11. Neglect 0 = None NIHSS Total (0-44): 0 Gen. alert oriented ?3 Cardiorespiratory: Pulse rhythmic; breathing pattern normal Abdomen: No tenderness Extremity: No edema Skin: Normal MENTAL STATUS: Alert, oriented to person, place and time CRANIAL NERVES: PERRLA, EOM's intact, Visual estrella intact to confrontation, Extraocular movements intact, Facial sensation intact, Face symmetric, No facial droop or ptosis, Hearing intact to finger rub bilaterally, No dysarthria, Palate elevates symmetrically, Tongue protrudes midline and Shoulder shrug intact and symmetric MOTOR: No drift and Normal tone MOTOR STRENGTH: Upper and lower extremity 5/5 bilaterally REFLEXES: UE and LE reflexes are equal and reactive SENSATION: Intact light touch in all extremities COORDINATION: Finger-to- nose-finger intact bilaterally and [id number] intact bilaterally GAIT: Normal-based LABS Cholesterol: No results found for: CHOL LDL Chol, [place] (mg/dL) Date Value 02/18/2009 143 No results found for: HDL No results found for: TG Diabetes: Hemoglobin A1C (%) Date Value 07/14/2011 5.9 IMAGING MRI brain : June 26, 2017 Scattered white matter changes in coronary data bilaterally White matter change left medial sharon No acute ischemic changes CEREBROVASCULAR CATEGORIES Ischemic Stroke: Small-vessel occlusion (lacune)-- remote sharon : ? IMPRESSION 1. Suspect initial event of left-sided weakness in February 2015--non-radiographic left pontine stroke related to hypertensive etiology 2. White matter changes--chronic microvascular ischemia relating to known stroke risk factors: Hypertension hyperlipidemia 3. Subsequent spells in December--- suspect migraine related event: Acephalic migraine with aura 4. Sleep apnea PLAN --Suspect based on MRI imaging from June 26, 2017---FLAIR change in medial L sharon--could have been a small drain non-radiographic stroke in February 2015 when she had presented with left-sided hemiparesis and uncontrolled hypertension --- for secondary stroke prevention : Aspirin 81 mg po daily ( life long unless d/c from bleed risk by a physician ) --- LDL <70 : titrate statin therapy towards goal with PCP -- continue Crestor 5 mg po daliy Will review records when available --- for her vessel imaging; patient reports ultrasound carotids were reportedly without significant carotid atherosclerosis Address migraine management with Dr Melendez --- very infrequent - dont think need a prophylactic medications Home regimen : Benadryl 25 mg po Q8H + Alleve 440 mg po Q8h + Zofran 4 mg po q8H- take together - PRN severe VELARDE as abortive agent . Limit to 15 times a month . If any atypical headache or increased frequency call Dr Diallo to reassess; if sudden severe headache need to be assessed in ED Risk factor modification including: Hypertension - Target blood pressure <140/90, <130/85 for high risk, normal 120/80 Physical inactivity - target exercise at least 3 times per week Obesity - target ideal body weight and girth <35 for women, <40 for men Diabetes - Target hba1c <6.5-7% Smoking - Target smoking cessation Hyperlipidemia - Target total cholesterol < 200, Target LDL <100, < 70 for high risk, Target HDL >45 for men, >55 for women, Target triglycerides <150 Stroke education complete This note was partially generated using [employer] Smart voice recognition system, and there may be some incorrect words, spellings, and punctuation that were not noted in checking the note before saving. Discussion, counseling, coordination of care > 50% of 60 minutes. Questions asked/ answered. Follow-up with results/ adherence to plan/ continued education. Jaron Zhao MD Staff, [facility] 07/19/2017 6:46 PM CC Yann Diallo MD [address] [place], [place] [address] [place] [address] Miko Avila MD ([facility]) [address] [place] [address] CV VENOUS LEG RT Observed: 07/03/2017 Status: F Source: ABDAIS VIVAR 3:38 PM [facility] [address] [place], [place] [address] Patient: CLAIRE GUEVARA Phone#: : 1955 Age: 62 Gender: F Pt. Type: Out Account: [id number] Location: 052 Ordering: MIKO AVILA Exam Date: 07/03/2017/15:12 Family Phys: ANJELICA JIN Charge Code: [id number] Physician: Goliad Order #: [id number] DLP Dose#: PROCEDURE: VENOUS DOPPLER RT LEG COMPARISON: [facility], , VENOUS DOPPLER RT LEG, 03/29/2017, 11:01. INDICATIONS: Pain TECHNIQUE: Color duplex Doppler ultrasound evaluation analysis was performed in the usual manner. ASSISTANT PROFESSOR OF BIOCHEMISTRY: VITO RISK FACTORS FOR VENOUS DISEASE: Previous DVT or SVT Other Pain EXAMINATION: RIGHT +Present -Reduced o Absent LEFT SPONT PHASIC AUG REFLUX COMP SPONT PHASIC AUG REFLUX COMP + + + o + CFV + + + o + + SFJ + + + o + FV (prox) + FV (mid) + FV (dist) + + + o + POP V + + + o + T/P TRUNK + + + o + PTV + + + o + PERONEAL V + GSV GASTROC SOLEAL V Continued Report - Page 2 of 2 Patient: CLAIRE GUEVARA Phone#: : 1955 Age: 62 Gender: F Pt. Type: Out Account: [id number] Location: 052 Ordering: MIKO AVILA Exam Date: 07/03/2017/15:12 Family Phys: ANJELICA JIN Charge Code: [id number] Physician: Goliad Order #: [id number] DLP Dose#: ASSISTANT PROFESSOR OF BIOCHEMISTRY'S NOTES: FINDINGS: THROMBI: None visible. COMPRESSIBILITY: Normal. OTHER: Negative. CONCLUSION: 1. No evidence of deep venous thrombosis in the right lower extremity. Dictated by: Ivet Aaron MD on 07/03/2017 at 15:43 Approved by: Ivet Aaron MD on 07/03/2017 at 15:43 MRI SPINE CERVICAL Observed: 06/26/2017 Status: F Source: [employer] W/O CONTRAST 11:30 AM [facility] REPOSITORY ORIGINAL MRI SPINE CERVICAL W/O CONTRAST Clinical Statement: .. TIA, neck pain. Concern for stenosis.. Transient left foot and left hand numbness. TECHNIQUE: Multiplanar, multisequence imaging of the cervical spine. COMPARISON: MRI of the brain the same day FINDINGS: The cervical spine demonstrates normal alignment. Vertebral bodies are normal in height.There are mild multilevel degenerative changes. Disc height loss is noted at C5-6 and C6-7. The cervical spinal cord is normal in size, contour and signal intensity. The paraspinal soft tissues and craniocervical junction are grossly normal. C2-3: No stenosis. C3-4: Uncovertebral spurring and facet arthropathy cause moderate bilateral foraminal stenosis. C4-5: Small circumferential disc ossified complex without spinal canal stenosis. Uncovertebral spurring and facet arthropathy cause mild right, moderate left foraminal stenosis. C5-6: Circumferential disc osteophyte complex and ligamentum flavum thickening cause mild spinal canal stenosis. Uncovertebral spurring and facet arthropathy cause severe right foraminal stenosis. C6-7: Circumferential disc osteophyte complex and ligamentum flavum thickening cause mild spinal canal stenosis. Uncovertebral spurring and facet arthropathy cause [id number] right, mild left foraminal stenosis. C7-T1: No stenosis. IMPRESSION: 1. Symptoms in a right C6 or C7 distribution would correlate with the degenerative foraminal stenosis at C5-6 or C6-7 respectively. 2. Mild degenerative spinal canal stenosis at C5-6 and C6-7. 3. No intramedullary signal abnormality. Interpreted By: Dereje Timmons MD Preliminary Report By: Dereje Timmons MD Electronically Signed By: Dereje Timmons MD Dictated Date: 06/26/2017 12:48:07 PM Prelim Date: 06/26/2017 12:48:07 PM Sign Date: 06/26/2017 12:52:56 PM MRA/MRI BRAIN W/O Observed: 06/26/2017 Status: F Source: [employer] CONTRAST 10:45 AM [facility] REPOSITORY ORIGINAL MRA/MRI BRAIN W/O CONTRAST Clinical Statement: tia. TECHNIQUE: Multiplanar, multisequence MRI imaging of the brain was obtained. [id number] MRA of the head. Source data and maximum intensity projections (MIPs) were reviewed. COMPARISON: Head CT without contrast 2017 FINDINGS: MRI BRAIN: Diffusion imaging shows no hyperacute, acute, or early subacute infarction. There is no mass, mass effect or abnormal extra- axial fluid collection. Scattered FLAIR hyperintensities in the cerebral white matter and sharon are nonspecific but statistically most consistent with mild chronic microvascular angiopathy. This is unusually confluent in the bi lateral frontal periventricular regions. The ventricles are normal in size, shape and position. The paranasal sinuses and mastoid air cells are clear. The marrow signal pattern is within normal limits. MRA BRAIN: There is normal flow-related signal in the larger intracranial arteries. No large branch artery occlusion, definite significant arterial stenosis, or saccular aneurysm is demonstrated. The an terior communicating artery and the posterior communicating arteries are visible. IMPRESSION: 1. No acute intracranial abnormality. 2. Patchy nonspecific FLAIR hyperintensities, favored to be mild chronic microvascular angiopathy. 3. Normal noncontrast MRA of the head. Interpreted By: Dereje Timmons MD Preliminary Report By: Dereje Timmosn MD Electronically Signed By: Dereje Timmons MD Dictated Date: 06/26/2017 12:42:44 PM Prelim Date: 06/26/2017 12:42:44 PM Sign Date: 06/26/2017 12:47:58 PM CBC Collected: 06/26/2017 Status: F Source: [employer] 4:46 AM [facility] REPOSITORY TYPE CODE TESTS RESULT OUT OF REFERENCE UNITS RANGE LAB WBC(LOINC) 4.50-10.80 10 3/mcL Low WBC 3.50 LAB RBCCT(LOINC 4.10-5.30 10 6/mcL ) RBC 4.30 LAB HGB(LOINC) 12.0-16.0 G/dL Hgb 13.3 LAB HCT(LOINC) 34.0-46.0 % Hct 40.0 LAB MCV(LOINC) 80.0-99.0 fL MCV 93.2 LAB MCH(LOINC) 27.0-33.0 pg MCH 30.9 LAB MCHC(LOINC) 32.0-36.0 G/dL MCHC 33.2 LAB RDW(LOINC) 11.5-15.5 % RDW 15.2 LAB PLT(LOINC) 150-450 10 3/mcL Low Platelet 128 LAB MPV(LOINC) 6.6-10.5 fL MPV 9.3 Performed By: #### LIPID, CBC, DIFF, BMP, A1C, GFR, MORPH #### [place] [address] .GFR Collected: 06/26/2017 Status: F Source: [facility] 4:46 AM [facility] REPOSITORY TYPE CODE TESTS RESULT OUT OF REFERENCE UNITS RANGE LAB GFRAA(LOINC ml/min/1.73 ) sqm GFR >60 Cuban Result Comment: GFR Population mean for , Non- Americans Ages 20-29 = 116 mL/min/1.73 sq.m. Ages 30-39 = 107 mL/min/1.73 sq.m. Ages 40-49 = 99 mL/min/1.73 sq.m. Ages 50-59 = 93 mL/min/1.73 sq.m. Ages 60-69 = 85 mL/min/1.73 sq.m. Ages 70+ = 75 mL/min/1.73 sq.m. Chronic Kidney Disease: Less than 60 mL/min/1.73 square meters End Stage Renal Disease: Less than 15 mL/min/1.73 square meters LAB GFRNO(LOINC) ml/min/1.73sqm GFR Non- >60 Result Comment: GFR Population mean for , Non- Americans Ages 20-29 = 116 mL/min/1.73 sq.m. Ages 30-39 = 107 mL/min/1.73 sq.m. Ages 40-49 = 99 mL/min/1.73 sq.m. Ages 50-59 = 93 mL/min/1.73 sq.m. Ages 60-69 = 85 mL/min/1.73 sq.m. Ages 70+ = 75 mL/min/1.73 sq.m. Chronic Kidney Disease: Less than 60 mL/min/1.73 square meters End Stage Renal Disease: Less than 15 mL/min/1.73 square meters Performed By: #### LIPID, CBC, DIFF, BMP, A1C, GFR, MORPH #### [address] [address] BMP Collected: 06/26/2017 Status: F Source: [facility] 4:46 AM [facility] REPOSITORY TYPE CODE TESTS RESULT OUT OF REFERENCE UNITS RANGE LAB GLU(LOINC) 82-115 mg/dL Glucose Level 88 LAB NA(LOINC) 136-145 mEq/L Sodium Level 142 LAB K(LOINC) 3.5-5.0 mEq/L Potassium Level 4.0 LAB CL(LOINC) 98-110 mEq/L Chloride 106 LAB CO2(LOINC) 22-32 mEq/L CO2 29 LAB EBAL(LOINC 4.0-15.0 mEq/L ) Electrolyte Balance 7.0 LAB BUN(LOINC) 8.0-22.0 mg/dL BUN 11.0 LAB CRE(LOINC) 0.50-1.20 mg/dL Creatinine Lvl (s) 0.61 LAB BC(LOINC) 10.0-22.0 ratio BUN/Creatinine 18.0 Ratio LAB CA(LOINC) 8.4-10.1 mg/dL Calcium Lvl 8.7 Performed By: #### LIPID, CBC, DIFF, BMP, A1C, GFR, MORPH #### [address] [address] LIPID Collected: 06/26/2017 Status: F Source: [place] [employer] 4:46 AM [facility] REPOSITORY TYPE CODE TESTS RESULT OUT OF REFERENCE UNITS RANGE LAB CHOL(LOINC 50-199 mg/dL ) Cholesterol 194 Result Comment: Cholesterol Reference Interval: Less than 200 Desirable 200-239 Borderline high risk 240 and above High risk LAB TRIG(LOINC) 3-149 mg/dL Triglycerides 97 Result Comment: Triglyceride Reference Interval: Less than 150 Normal 150-199 Borderline high risk 200-499 High risk 500 or higher Very high risk LAB HD(LOINC) 40-59 mg/dL HDL Cholesterol 43 Result Comment: HDL Reference Interval: Less than 40 Low - high risk 60 or above Optimal/lowers risk LAB LDL(LOINC) 0-129 mg/dL LDL High Cholesterol 132 Result Comment: LDL is a calculated result and requires a 12-hr fast. LDL Reference Interval: Less than 100 Optimal 100-129 Near or above optimal 130-159 Borderline high risk 160-189 High risk 190 and above Very high risk Performed By: #### LIPID, CBC, DIFF, BMP, A1C, GFR, MORPH #### [address] [address] .MANUAL DIFF Collected: 06/26/2017 Status: F Source: [facility] 4:46 AM [facility] REPOSITORY TYPE CODE TESTS RESULT OUT OF REFERENCE UNITS RANGE LAB LIMIT(LOIN C) Cells Counted 100 LAB NEUM(LOINC 50.0-75.0 % ) Low Neutrophil %, 49.0 Manual LAB LYMM(LOINC 20.0-40.0 % ) Lymphocyte %, 37.0 Manual LAB EOM(LOINC) 2.0-13.0 % Monocyte %, Manual 4.0 Result Comment: 9.0 LAB BASM(LOINC) 0.0-2.5 % Basophil %, Manual 1.0 LAB ANEUM(LOINC) 2.25-8.10 10 3/mcL Low Neutrophil, Abs Manual 1.72 LAB ABLYMM(LOINC) 0.90-4.32 10 3/mcL Lymphocyte, Abs Manual 1.29 LAB AMONM(LOINC) 0.09-1.40 10 3/mcL Monocyte, Abs Manual 0.14 LAB AEOSM(LOINC) 0.00-0.65 10 3/mcL Eosinophil, Abs Manual 0.32 LAB ABASM(LOINC) 0.00-0.27 10 3/mcL Basophil, Abs Manual 0.04 Performed By: #### LIPID, CBC, DIFF, BMP, A1C, GFR, MORPH #### [address] [address] .MORPH Collected: 06/26/2017 Status: F Source: [facility] 4:46 AM [facility] REPOSITORY TYPE CODE TESTS RESULT OUT OF REFERENCE UNITS RANGE LAB PLTE(LOINC ) Slt Platelet Decreased Estimate LAB RBCM(LOINC ) RBC Morph Normal Performed By: #### LIPID, CBC, DIFF, BMP, A1C, GFR, MORPH #### [address] [address] A1C Collected: 06/26/2017 Status: F Source: [facility] 4:46 AM [facility] REPOSITORY TYPE CODE TESTS RESULT OUT OF RANGE REFERENCE UNITS LAB A1C(LOINC) 4.0-6.0 % Hgb A1c 5.7 Performed By: #### LIPID, CBC, DIFF, BMP, A1C, GFR, MORPH #### [facility] [address] [place] [address] SR-MRA/MRI BRAIN W/O Observed: 06/26/2017 Status: F Source: [facility] IMPORT 12:00 AM [facility] REPOSITORY Images were obtained outside of [facility] [id number] SR-MRI SPINE CERVICAL Observed: 06/26/2017 Status: F Source: [place] W/O CONTRAST IMPORT 12:00 AM [facility] REPOSITORY Images were obtained outside of [facility] [id number] CT HEAD OR BRAIN W/O Observed: 2017 Status: F Source: [employer] CONTRAST 2:45 PM [facility] REPOSITORY ORIGINAL Head CT 2017 2:52 PM INDICATION: change in mental status/weakness/aphasia COMPARISON: No TECHNIQUE: Routine non-contrast head CT. This exam was performed according to our departmental dose optimization program, and includes the following measures where applicable: automated exposure control, adjustment of the mAs and/or kVp accord ing to patient size and/or exam, and an iterative reconstruction algorithm. FINDINGS: The ventricles and sulci are normal in size and configuration. There is no shift of midline structures. There are no abnormal intra or extra-axial fluid collections. There is mild irregular de creased attenuation in the white matter of the dash radiata and centrum semiovale. More-white matter differentiation is maintained. The paranasal sinuses and mastoid air cells are clear. The calvaria and the bones of the base of the skull are intact. Examination was performed within 24 hours of presentation to the hospital. IMPRESSION: Mild white matter changes; no acute findings. Interpreted By: Jose Juan Mares MD Preliminary Report By: Jose Juan Mares MD Electronically Signed By: Jose Juan Mares MD Dictated Date: 2017 2:55:30 PM Prelim Date: 2017 2:55:30 PM Sign Date: 2017 2:56:49 PM XR CHEST 1 VIEW Observed: 2017 Status: F Source: [employer] 2:19 PM [facility] REPOSITORY ORIGINAL XR CHEST 1 VIEW, 2017 2:39 PM INDICATION: chest pain/SOB COMPARISON: 03 August 2008 FINDINGS: The lungs and pleural spaces are clear. The cardiac silhouette is within normal size limits. The pulmonary vasculature is normal in appearance IMPRESSION: Clear lungs. Interpreted By: Jose Juan Mares MD Preliminary Report By: Jose Juan Mares MD Electronically Signed By: Jose Juan Mares MD Dictated Date: 2017 2:41:44 PM Prelim Date: 2017 2:41:44 PM Sign Date: 2017 2:41:55 PM CBC Collected: 2017 Status: F Source: [facility] 2:09 [facility] REPOSITORY TYPE CODE TESTS RESULT OUT OF REFERENCE UNITS RANGE LAB WBC(LOINC) 4.50-10.80 10 3/mcL WBC 4.50 LAB RBCCT(LOINC 4.10-5.30 10 6/mcL ) RBC 4.80 LAB HGB(LOINC) 12.0-16.0 G/dL Hgb 15.0 LAB HCT(LOINC) 34.0-46.0 % Hct 44.7 LAB MCV(LOINC) 80.0-99.0 fL MCV 93.1 LAB MCH(LOINC) 27.0-33.0 pg MCH 31.1 LAB MCHC(LOINC) 32.0-36.0 G/dL MCHC 33.4 LAB RDW(LOINC) 11.5-15.5 % RDW 15.0 LAB PLT(LOINC) 150-450 10 3/mcL Low Platelet 138 LAB MPV(LOINC) 6.6-10.5 fL MPV 8.3 Performed By: #### ANEU, BMP, TROPI, PRO, APTT, ADIFF, GFR, CBC #### [place] [address] .AUTO DIFF Collected: 2017 Status: F Source: [facility] 2:09 [facility] REPOSITORY TYPE CODE TESTS RESULT OUT OF REFERENCE UNITS RANGE LAB LEONORA(LOINC) 50.0-75.0 % Low Neutrophil % 47.6 LAB LYM(LOINC) 20.0-40.0 % High Lymphocyte % 42.1 LAB MON(LOINC) 2.0-13.0 % Monocyte % 6.4 LAB EO(LOINC) 0.0-6.0 % Eosinophil % 3.7 LAB BAS(LOINC) 0.0-2.5 % Basophil % 0.2 LAB ABLYM(LOIN 0.90-4.32 10 3/mcL C) Lymphocyte, 1.90 Absolute LAB ELSIE(LOINC 0.09-1.40 10 3/mcL ) Monocyte, 0.30 Absolute LAB AEOS(LOINC 0.00-0.65 10 3/mcL ) Eosinophil, 0.20 Absolute LAB ABAS(LOINC 0.00-0.27 10 3/mcL ) Basophil, 0.00 Absolute Performed By: #### ANEU, BMP, TROPI, PRO, APTT, ADIFF, GFR, CBC #### [place] [address] .NEUABS Collected: 2017 Status: F Source: [facility] 2:09 PM [facility] REPOSITORY TYPE CODE TESTS RESULT OUT OF REFERENCE UNITS RANGE LAB ANEU(LOINC) 2.25-8.10 10 3/mcL Low Neutrophil, 2.10 Absolute Performed By: #### ANEU, BMP, TROPI, PRO, APTT, ADIFF, GFR, CBC #### [place] [address] BMP Collected: 2017 Status: F Source: [facility] 2:09 [facility] REPOSITORY TYPE CODE TESTS RESULT OUT OF REFERENCE UNITS RANGE LAB GLU(LOINC) 82-115 mg/dL Glucose Level 86 LAB NA(LOINC) 136-145 mEq/L Sodium Level 140 LAB K(LOINC) 3.5-5.0 mEq/L Potassium Level 4.1 LAB CL(LOINC) 98-110 mEq/L Chloride 104 LAB CO2(LOINC) 22-32 mEq/L CO2 29 LAB EBAL(LOINC 4.0-15.0 mEq/L ) Electrolyte Balance 7.0 LAB BUN(LOINC) 8.0-22.0 mg/dL BUN 12.0 LAB CRE(LOINC) 0.50-1.20 mg/dL Creatinine Lvl (s) 0.67 LAB BC(LOINC) 10.0-22.0 ratio BUN/Creatinine 17.9 Ratio LAB CA(LOINC) 8.4-10.1 mg/dL Calcium Lvl 9.8 Performed By: #### ANEU, BMP, TROPI, PRO, APTT, ADIFF, GFR, CBC #### [place] [address] .GFR Collected: 2017 Status: F Source: [facility] 2:09 PM [facility] REPOSITORY TYPE CODE TESTS RESULT OUT OF REFERENCE UNITS RANGE LAB GFRAA(LOINC ml/min/1.73 ) sqm GFR >60 Cuban Result Comment: GFR Population mean for , Non- Americans Ages 20-29 = 116 mL/min/1.73 sq.m. Ages 30-39 = 107 mL/min/1.73 sq.m. Ages 40-49 = 99 mL/min/1.73 sq.m. Ages 50-59 = 93 mL/min/1.73 sq.m. Ages 60-69 = 85 mL/min/1.73 sq.m. Ages 70+ = 75 mL/min/1.73 sq.m. Chronic Kidney Disease: Less than 60 mL/min/1.73 square meters End Stage Renal Disease: Less than 15 mL/min/1.73 square meters LAB GFRNO(LOINC) ml/min/1.73sqm GFR Non- >60 Result Comment: GFR Population mean for , Non- Americans Ages 20-29 = 116 mL/min/1.73 sq.m. Ages 30-39 = 107 mL/min/1.73 sq.m. Ages 40-49 = 99 mL/min/1.73 sq.m. Ages 50-59 = 93 mL/min/1.73 sq.m. Ages 60-69 = 85 mL/min/1.73 sq.m. Ages 70+ = 75 mL/min/1.73 sq.m. Chronic Kidney Disease: Less than 60 mL/min/1.73 square meters End Stage Renal Disease: Less than 15 mL/min/1.73 square meters Performed By: #### ANEU, BMP, TROPI, PRO, APTT, ADIFF, GFR, CBC #### [address] [address] APTT Collected: 2017 Status: F Source: [facility] 2:09 PM [facility] REPOSITORY TYPE CODE TESTS RESULT OUT OF REFERENCE UNITS RANGE LAB PDOSE(LOINC ) Heparin dose None (APTT) Result Comment: per [facility]auly LAB APTT0(LOINC) 25.0-35.0 seconds APTT 30.6 Result Comment: For Heparin anticoagulation therapy, the recommended therapeutic range is: 54-77 seconds (APTT Correlation with Anti-Xa therapeutic range of 0.3-0.7 units/ml). PLEASE REFERENCE THE PHARMACY PROTOCOL FOR DOSING. Performed By: #### ANEU, BMP, TROPI, PRO, APTT, ADIFF, GFR, CBC #### [place] [id number] [place] [address] PRO Collected: 2017 Status: F Source: [facility] 2:09 PM [facility] REPOSITORY TYPE CODE TESTS RESULT OUT OF REFERENCE UNITS RANGE LAB PT(LOINC) 9.0-14.5 seconds Protime 10.9 Result Comment: Effective 12/24/07, Protime results may be affected by some antibiotics (i.e. Ciprofloxacin, Azithromycin, Bactrim) which may potentiate the action of oral anticoagulants, with further increases in Protime/INR. LAB INR(LOINC) ratio PT International Ratio 0.9 Result Comment: The [place] [employer] (CHEST, 1992, 102:312S-25S) recommended therapeutic range for oral anticoagulant therapy is: LOW RISK: Prophylaxis of venous thrombosis INR: 2.0-3.0 Treatment of pulmonary embolism 2.0-3.0 Prevention of systemic embolism 2.0-3.0 HIGH RISK: Mechanical prosthetic valves 2.5-3.5 Performed By: #### ANEU, BMP, TROPI, PRO, APTT, ADIFF, GFR, CBC #### [place] [id number] [place] [address] TROPI Collected: 2017 Status: F Source: [facility] 2:09 PM [facility] REPOSITORY TYPE CODE TESTS RESULT OUT OF REFERENCE UNITS RANGE LAB TROPI(LOINC 0.000-0.040 ng/mL ) Troponin I <0.015 Result Comment: Troponin I reference ranges (02/16/14): 0.00-0.040 ng/mL Negative and non-diagnostic. >0.040 ng/mL Consistent with cardiac damage, increased clinical risk and possibility of myocardial infarction. Serial measurements, a rise & fall in test results, clinical history, appropriate symptoms and/or ECG changes may help assess possibility of WA. *Other non-acute coronary syndrome conditions such as CHF, myocarditis, pulmonary emboli, sepsis and cardiac surgery could result in myocardial damage and increased troponin levels. Performed By: #### ANEU, BMP, TROPI, PRO, APTT, ADIFF, GFR, CBC #### [facility] [address] [place], [place] [address] CNPN Observed: 2017 Status: COMPLETED Source: [facility] 12:00 AM [facility] REPOSITORY Telephone (NEURMM) CLAIRE GUEVARA ([id number]) 1955 F T Date Time Provider Department 06/25/17 NORI MARTINEZ, YANN Roca NEUR During your visit today, we recorded the following information about you: Jasmina Annabritton 2017 1:19 PM Signed Patient calls was having a massage today. Calls with concern while having the massage patient has an episode of left leg numbness and left arm. Massage therapist was working on her neck at the time, episode last 10min. Patient now reports left arm feel heavy/ tired. Denies facial droop, speech not slurred, denies visual changes. Please advise, Hx TIA advised patient ED visit may be warranted Jasmina Annabritton 2017 3:20 PM Signed Please advise Jasmina Annabritton 06/26/2017 8:23 AM Signed ? She needs to go to [facility]. Thanks MONIQUE (Routing comment) Called patient at number on file, went straight to , Left that she needed to go to ED if she had not already as advised. Also called husbands number and was disconnected. Will f/u again later Sara Sharma 06/26/2017 10:23 AM Signed Patient calling office back to let them know she went [facility]. She was admitted and is still there. Shes on the observation floor. Running tests. Did US carotid and EKG. She is waiting on an MRI Cervical spine and brain. Just wanted to give you an update. aSra Moran 06/26/2017 11:06 AM Signed Noted thank you Shivani Ellis Cma 06/26/2017 11:12 AM Signed Please see Sara Espinoza's Note. Thanks! Shivani Ellis Cma Jasmina Moran 06/27/2017 8:17 AM Signed Patient calls to update Dr Diallo. Was d/c from the hospital 06/26/17. CT head completed results negative, Echo complete negative, MRI spine shows arthritis and one disk shifted however per neurologist would cause right side numbness, Patient seen Dr. Smyth at [facility] did dx patient with TIA Was started back on ASA 81mg daily, crestor daily d/c LDL 132. Numbness and tnigling of left side resolved Patient is due to f/u in our office in August, would you like to see the patient sooner? Please advise Shivani Ellis Cma 06/27/2017 10:16 AM Signed Called and spoke to patient about seeing a cerebrovascular specialist. I gave her the number to [facility] [phone]. She wanted to know if she needed a referral? Shivani Diallo Jr. ?You 1 hour ago (8:57 AM) ? ? ? Due to recurrent TIAs, I would like to have her see one of the cerebrovascular specialist (stroke specialist) for at least one follow up. ?Can this be arranged? ? Thanks MONIQUE (Routing comment) ? Shivani Ellis Cma 06/28/2017 10:56 AM Signed She has already left hospital. Shivani Ellis Cma Allergies As of Date: 2017 Noted Allergy Reaction AUGMENTIN (AMOXICILLIN-POT CLAVUL*05/04/2017 2 - Rash Date Reviewed: 05/04/2017 Reviewed by: Yann Diallo Jr. - Fully Assessed Reason for Visit: Numbness [75] Cmt: left left and arm Prescriptions as of 2017 Sig: GABAPENTIN 300 MG CAPSULE Take 3 capsules at dinner and* ESCITALOPRAM 10 MG TABLET Take 10 mg by mouth once shane* FAMOTIDINE 20 MG TABLET Take 20 mg by mouth twice tracy* ALPRAZOLAM 0.25 MG TABLET AMLODIPINE 2.5 MG TABLET AMOXICILLIN 875 MG TABLET ETODOLAC 300 MG CAPSULE HYDROCODONE 5 MG-ACETAMINOPHE* ISOSORBIDE MONONITRATE ER 30 * METHOTREXATE SODIUM 25 MG/ML * NITROSTAT 0.4 MG SUBLINGUAL T* ZETIA ORAL Take 10 mg by mouth once shane* HYOSCYAMINE 0.125 MG SUBLINGU* Take 1 tablet by mouth every * OMEPRAZOLE 40 MG CAPSULE,JAIDEN* Take 40 mg by mouth once shane* ASPIRIN 81 MG TABLET,DELAYED * Take 81 mg by mouth once shane* METHOTREXATE (PF) 25 MG/0.5 M* Inject subcutaneously. Injec* ESCITALOPRAM 20 MG TABLET Take 20 mg by mouth once shane* MAGNESIUM OXIDE 400 MG TABLET Take 400 mg by mouth once tracy* MULTI-VITAMIN ORAL Take by mouth. * CHOLECALCIFEROL (VITAMIN D3) * Take 1 capsule by mouth once * * CPAP * FOLIC ACID 1 MG TABLET * ENBREL 50 MG/ML (0.98 ML) SUB* takes once weekly. Problem List As Of Date 2017 Noted Resolved Rheumatoid arthritis (HCC) [M06.9] Priority: Moderate More... More... More... Abnormal Stress Test [R94.39] INVALID FOR* More... 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 PVC's INVALID FOR* More... Osteopenia [M85.80] INVALID FOR* Routine Gynecological Examination [Z01.419] INVALID FOR* Class: Chronic More... GERD (Gastroesophageal Reflux Disease) [K21.9] INVALID FOR* More... Impaired Fasting Glucose [R73.01] INVALID FOR* Neoplasm of uncertain behavior of skin [D48.5] INVALID FOR* Irritable bowel syndrome with diarrhea [K58.0] INVALID FOR* Hyperlipidemia [E78.5] INVALID FOR* ZAID (obstructive sleep apnea) [G47.33] INVALID FOR* Multiple thyroid nodules [E04.2] INVALID FOR* TIA (transient ischemic attack) [G45.9] INVALID FOR* Anxiety neurosis [F41.1] INVALID FOR* RBBB [I45.10] INVALID FOR* Micrognathia [M26.09] INVALID FOR* Family history of colon cancer [Z80.0] INVALID FOR*04/08/2015 Encounter Status:Closed by JASMINA MORAN on 06/26/17 SR-CT HEAD OR BRAIN Observed: 2017 Status: F Source: [place] W/O CONTRAST IMPORT 12:00 AM [facility] REPOSITORY Images were obtained outside of [facility] [id number] CNCO Observed: 06/14/2017 Status: COMPLETED Source: [place] 12:00 AM [facility] REPOSITORY Letter Text Yann Diallo MD [facility] [address] [address] Claire Guevara June 14, [address] [facility] [address] Dear Claire Guevara: Due to a change in your provider's schedule, it has become necessary to cancel the following appointment: Yann Diallo MD Date: 08/23/17 Time: 9:00 AM We apologize for any inconvenience to you, however your provider would still like to see you. Please call us at [phone] to reschedule your appointment. Sincerely, Appointment Staff EMERGENCY REPORT Observed: 05/31/2017 Status: F Source: [facility] 4:55 PM [facility] EMERGENCY ROOM REPORT NAME NUMBER SEX AGE ADMIT DISC TYPE MED.RECORD# DEVON Schultz [id number] F 61 05/27/17 05/27/17 E.R. [id number] ROOM:ER-B DATE OF :1955 PHYSICIAN NO.:[id number] PHYSICIAN NAME:Maria De Jesus Diaz D.O. PHYSICIAN: FAMILY PHYSICIAN: DAVIN SCHREIBER Seen at 1413 hours on 05/27/2017. CHIEF COMPLAINT/HISTORY OF PRESENT ILLNESS: Cough, congestion, fever, chills, body aches, chest pain that is sharp with coughing. The patient states that all of these symptoms started on Sunday and got worse over the past several days. The patient states that the chest pain began yesterday and is associated with coughing and deep breathing. Denies any pain with movement. She states that the pain is located primarily on the right side. PAST MEDICAL HISTORY: Positive for rheumatoid arthritis. PAST SURGICAL HISTORY: Hysterectomy, foot surgery x2 and dental extractions recently. MEDICATIONS: Enbrel and methotrexate. ALLERGIES: Penicillin. SOCIAL HISTORY: Denies any use of tobacco, alcohol or drugs. PHYSICAL EXAMINATION: Temperature 99.0, pulse 84, respiratory rate 18, blood pressure 99/73 initially, pulse ox 96% on room air. GENERAL: The patient is alert, awake and oriented and appears to be mildly toxic in no acute distress. HEENT: Clear rhinorrhea. Oral nasal mucosa is pink and moist. NECK: Supple without meningismus. The patient is able to touch her chin to her chest without difficulty. Negative jolt sign. Negative Brudzinski, negative Kernig's sign. HEART: Regular rate and rhythm without murmurs, heaves, lifts or thrills. LUNGS: Diminished breath sounds in both lung bases There are no gross retractions or tachypnea. There is occasional cough noted. ABDOMEN: Soft, benign without rebound, rigidity or guarding noted. SKIN: Warm, soft, dry, intact without rash. DIAGNOSTIC DATA: The patient had an EKG obtained with sinus rhythm with 76 beats per minute with a right bundle branch block pattern with no acute ST or T wave changes. CBC revealed normal white cell count of 7.7, hemoglobin 12.7, hematocrit 37.7, platelets 111,000 with no left shift. Lactic acid level is normal at 10.9. BMP is normal at 61. Troponin I is less than 0.01. CMP is normal. Blood cultures were obtained. Rapid influenza was negative bilaterally. Two-view chest x-ray single view reveals an infiltrate in the left lung base. EMERGENCY DEPARTMENT COURSE AND TREATMENT/PLAN/DISPOSITION: I had a detailed discussion with the patient concerning lab work and expiratory findings. I feel that her chest pain is most likely pleuritic more than anything else. Her neck pain may be an aggravation of rheumatoid arthritis due to influenza. Clinically, I am concerned that she has influenza even though the rapid influenza test may be negative. I did offer the patient Tamiflu which she wanted. She was subsequently treated with a Zithromax, Z- sophy, and a prescription for Tamiflu and is referred back to her primary care doctor within the next 3-5 days. DIAGNOSIS: Community acquired pneumonia and influenza. D: Maria De Jesus Diaz DO TD: 16:33 JOB #: [id number] Electronically signed by: Not Currently Signed Transcribed by: germán 05/28/2017 16:21 EMERGENCY ROOM REPORT DEVON HEALYECCA Antoine 1 ALLERGIES ALLERGIES DATE TYPE / CODE NAME / CODE REACTION SEVERITY SOURCE 05/06/2018 Drug No Known Unknown Monserrat Allergy/416 Allergies/[id number] Community 113227([place] [address](RXNORM) [facility] [place]) Repository 05/04/2017 DRUG/[id number] AMOXICILLIN-POT RASH [facility] 003(SNOMED CLAVULANATE Other [place]) Repository NG/[id number] AMOXICILLIN-POT [facility] 6(SNOMED CLAVULANATE [facility] CT) Repository Drug AUGMENTIN/[id number] Moderate Abdias Pomerene Allergy/416 (RXNORM) ([facility] 997373[facility] (Qualifier Repository Value) ENCOUNTERS ENCOUNTERS ADMIT/DISCHARGE ACCOUNT NUMBER ADMITTING ENCOUNTER LOCATION SOURCE CLASS 05/27/2018/05/27/20 [id number] [facility], Ambulatory [address] Other [place] Repository 05/27/2018/05/27/20 [id number] [facility], Inpatient [address] MEDICAL Repository CENTERBuildi ng:Shalinim: POOLBed: 05 05/24/2018/05/24/20 [id number] Ambulatory [address] Other [place] Repository 05/24/2018/05/24/20 [id number] Ambulatory [address] MEDICAL Repository CENTERBuildi ng:AKPAG 05/22/2018/05/22/20 [id number] Ambulatory [address] Other [place] Repository 05/22/2018/05/22/20 [id number] Ambulatory [address] MEDICAL Repository CENTERBuildi ng:AGGBRCR 05/22/2018 [id number] Ambulatory [facility] Repository 05/22/2018/05/22/20 [id number] Ambulatory [address] MEDICAL Repository CENTERBuildi ng:AKXRMA 05/15/2018/05/15/20 [id number] Ambulatory [address] Other [place] Repository 05/15/2018/05/15/20 [id number] Ambulatory [address] MEDICAL Repository CENTERBuildi ng:AGGBRCR 05/09/2018 [id number] Ambulatory [facility] ding:OPUS Repository 05/06/2018/05/06/20 [id number] Ambulatory BMSBuilding: [address] Repository 05/03/2018/05/03/20 [id number] JOHNNY, Ambulatory Abdias Pomerene [facility] Repository 04/22/2018/04/22/20 [id number] Ambulatory BMSBuilding: [place] 18 BMS.[facility] Repository 03/15/2018 [id number] Ambulatory [facility] ding:OPUS Repository 03/13/2018/03/13/20 [id number] Ambulatory BMSBuilding: Monserrat 18 BMS.[facility] Repository 03/02/2018 [id number] Ambulatory [facility] ding:OPBI Repository 02/18/2018/02/19/20 [id number] JOHNNY, Ambulatory Abdias Pomerene 18 [facility] Repository 02/13/2018/02/14/20 [id number] ANGEL, Ambulatory Abdias Pomerene 18 [facility] Repository 02/12/2018/02/13/20 [id number] ANGEL Ambulatory Abdias Pomerene 18 [facility] Repository 02/05/2018 [id number] Ambulatory [facility] Repository 02/05/2018/02/06/20 [id number] Ambulatory [address] MEDICAL Repository CENTERBuildi ng:AKLBB 02/05/2018/02/06/20 [id number] Ambulatory [address] Repository 02/05/2018/02/06/20 [id number] Ambulatory [address] MEDICAL Repository CENTERBuildi ng:NEUSAGHB 01/18/2018/01/19/20 [id number] Ambulatory [facility] 18 ing:[facility] Repository 12/24/2017/12/25/19 [id number] JOHNNY Ambulatory Abdias Pomerene [facility] Repository 11/19/2017/11/20/19 [id number] MIKO AVILA Ambulatory Abdias [address] Repository 10/26/2017 [id number] Ambulatory [facility] ding:SL Repository 10/26/2017/10/30/19 [id number] Ambulatory [address] Main [place] Repository 10/09/2017/10/10/19 [id number] MIKO AVILA Ambulatory Abdias Pomere[address] Repository 09/14/2017/09/15/19 [id number] JOHNNY, Ambulatory [facility] 18 [facility] Repository 08/22/2017/08/23/19 [id number] DEMETRIO NÚÑEZ Ambulatory [facility] 18 C [facility] Repository 08/01/2017 [id number] Ambulatory [facility] ding:[facility] Repository 07/19/2017/07/20/19 [id number] Ambulatory [address] Repository 07/03/2017/07/03/19 [id number] MIKO AVILA Ambulatory [facility] 18 A [facility] Repository 06/25/2017/06/26/19 [id number] JOVITA MENDOZA, Ambulatory ABuilding:EMILY Melvin 18 YANN Barbosa [facility]: [address] [id number]: [facility] Repository 05/27/2017/05/27/20 [id number] TAYLOR, Emergency Buildin[address] [place] [address] Room: ERBed: [facility] Repository PAYERS PAYERS ENCOUNTER GUARANTOR PAYER SUBSCRIBER SOURCE 05/27/2018 CLAIRE Schultz Primary Insurance:THP CLAIRE Vivar General KEERDOB: SECURECHOICE MDCR KEERDOB: Health System PPOPolicy Number: [id number] Repository [address] [id number] [place], [place] Date: [address]Ybs: () 05/24/2018 CLAIRE M Primary Insurance:THP CLAIRE Resendezron General KEERDOB: SECURECHOICE MDCR KEMPERDOB: Health System PPOPolicy Number: [id number] Repository [address] [id number] [place], [place] Date: [address]Svh: () 05/22/2018 CLAIRE Primary Insurance:THP CLAIRE Vivar General KEMPERDOB: SECURECHOICE MDCR KEMPERDOB: Health System PPOPolicy Number: [id number] Repository [address] [id number] [place], [place] Date: [address]Xiq: (HP) 05/22/2018 CLAIRE Primary Insurance:[facility] CLAIREJAKI Vivar [facility] SECURECHOICE [facility] BISONERDOB: Health System PPOPolicy Number: [id number] Repository [address] [id number] [facility] [place] Date: [address]Qvs: (HP) 05/15/2018 CLAIRE Primary Insurance:[facility] CLAIRE Ghazala [facility] HospitalERDOB: SECURECHOICE [facility] BISONERB: Health System PPOPolicy Number: [id number] Repository [address] [id number] [facility] [place] Date: [address]Umf: (HP) 05/09/2018 CLAIRE M Primary CLAIRE Antoine Leal [id number] SR Insurance:HEALTH PLAN BISONERDOB: [address] [id number] [place] [address]Ume: VALLEYPolicy Number: Repository [id number] () Date: [place], [place] [address]FU: 05/09/2018 Secondary CLAIRE M [place] Insurance:MEDICARE [facility] PART A BPolicy Number: [id number] Hospital [id number] Repository Date:2018-05-06 05/09/2018 Tertiary NOT GIVENUNK [place] Insurance:SELF PAY [facility] Number: Effective Repository Date:2018-05-06 05/06/2018 CLAIRE M Primary CLAIRE Antoine Monserrat [id number] SR Insurance:HEALTH PLAN [facility]: [address] [id number] Hospital [place] [address]Klf: VALLEYPolicy Number: Repository [id number] () Date: [place], [place] [address]ZU: 05/06/2018 Secondary CLAIRE Leal Insurance:MEDICARE [facility]: [facility] PART A BPolicy Number: [id number] Hospital [id number] Repository Date:2018-04-22 05/06/2018 Tertiary NOT GIVENUNK [place] Insurance:SELF PAY [facility] Number: Effective Repository Date:2018-05-06 05/03/2018 CLAIRE M Primary CLAIRE Vivar [facility]OB: Insurance:[facility]: [facility] [id number] MEDICARE [id number] [address] Number: [place], [place] [address]Hwb: (564) [id number] [phone] () Date:Plan Name:MS 04/22/2018 CLAIRE M Primary CLAIRE Leal [id number] SR Insurance:HEALTH PLAN [facility] CAMP[facility]OB: [address] [id number] Memorial Hospital [address]Qky: [facility] Number: Repository [id number] () Date: [place], [place] [address]JG: 04/22/2018 Secondary NOT GIVENUNK Monserrat Insurance:SELF PAY [facility] Number: Effective Repository Date:2018-04-22 03/15/2018 CLAIRE M Primary CLAIRE Leal [id number] SR Insurance:HEALTH PLAN BISONERDOB: [address] [id number] Memorial Hospital [address]Jre: VALLEYPolicy Number: Repository [id number] (HP) Date: [place], [place] [address]DH: 03/15/2018 Secondary NOT GIVENUNK Monserrat Insurance:SELF PAY [facility]: Effective Repository Date:2018-03-13 03/13/2018 CLAIRE Schultz Primary CLAIRE Leal [id number] SR Insurance:HEALTH PLAN KEERDOB: [address] [id number] Memorial Hospital [address]Ulu: [facility] CENTERPolicy Number: Repository [id number] () Date: [place], [place] [address]HT: 03/13/2018 Secondary NOT GIVENUNK [place] Insurance:SELF PAY [facility] Number: Effective Repository Date:2018-03-07 03/02/2018 CLAIRE Schultz Primary CLAIRE Leal [id number] SR Insurance:HEALTH PLAN KEERDOB: [address] [id number] Memorial Hospital [address]Ywx: VALLEYPolicy Number: Repository [id number] () Date: [place], [place] [address]QN: 03/02/2018 Secondary NOT GIVENUNK Monserrat Insurance:SELF PAY [facility] Number: Effective Repository Date:2018-02-08 02/18/2018 CLAIRE M Primary CLAIRE M Abdias Vivar KEERDOB: Insurance:MEDICARE KEERDOB: [facility] [id number] [facility] [id number] [place] [address]BI Number: [address] [place]ository [place] [id number] 514[facility], [address]Gpi: (330) Date:Plan Name:[facility] [id number] [phone] () 02/18/2018 Secondary CLAIRE M Abdias Vivar Insurance:SECURE CARE KEMPERDOB: [facility] MEDICARE [id number] [facility] 1 [facility] 514BIG Repository Number: [place] [id number] Date:Plan Name:MS 02/13/2018 CLAIRE M Primary CLAIRE VINESERDOB: Insurance:SECURE CARE KEMPERDOB: [facility] MEDICARE [id number] [facility] 514BIG OUTPATIENTPolicy 1 [facility] 514BIG Repository [place] Number: John PATEL [id number]: (218) [id number] [phone] (HP) Date:Plan Name:MS 02/12/2018 CLAIRE M Primary CLAIRE VINESERDOB: Insurance:SECURE CARE KEMPERDOB: [facility] MEDICARE [id number] [facility] [address]BI OUTPATIENTPolicy 1 [facility] [address]BI Repository [place] Number: [address] [address]Aug: (922) [id number] [phone] (HP) Date:Plan Name:MS 02/05/2018 CLAIRE Primary Insurance:THP CLAIRE [facility] CenterER[facility]: SECURECHOICE MDCR KEERDOB: Health System PPOPolicy Number: [id number] Repository [facility] [address] [id number] [place], [place] Date: [address]Mpv: (HP) 02/05/2018 CLAIRE Primary Insurance:THP [facility]IREIndiana University Health North HospitalERDOB: SECURECHOICE MDCR KEERDOB: Health System PPOPolicy Number: [id number] Repository [facility] [address]BI [id number] [place], [place] Date: [address]Pff: (HP) 01/18/2018 CLAIRE M Primary CLAIRE Schultz [facility] HospitalERD[facility]: Insurance:SECURECARE KEMPERDOB: [facility] MEDICAREPolicy [id number] Repository [address] Number: [address] [place], [id number] [address] [place] [address]Fke: Date:2017-12-24 [place] [address]Ect: [phone] (HP)Tel: ([phone]) Name:[id number] [facility] (HP) (WP) ROAD [facility], 000-[address] () [place] [address]HJ: 12/24/2017 CLAIRE Schultz Primary CLAIREANH Vivar KEERDOB: Insurance:MEDICARE KEMPERDOB: [facility] OUTPATIENTPolicy [id number] [facility] [address]BI Number: 1 [facility] Repository [address] [place] [id number] [address] [place], [address]Qrw: (913) Date:Plan Name:[facility] [id number] [phone] () 12/24/2017 Secondary CLAIRE Antoine Abdiasscarlett Vivar Insurance:SECURE CARE KEERDOB: [facility] MEDICARE [id number] [facility] OUTPATIENTPolicy 1 [address] 514BIG Repository Number: [place] [id number] Date:Plan Name:MS 11/19/2017 CLAIRE Schultz Primary CLAIRE Vivar KEERDOB: Insurance:SECURE CARE BISONERDOB: [facility] MEDICARE [id number] [facility] 514BIG OUTPATIENTPolicy 1 [facility] 514BIG Repository [place] Number: [place] [address]Unw: (988) [id number] [phone] () Date:Plan Name:MS 10/26/2017 CLAIRE Schultz Primary CLAIRE Antoine Monserrat [id number] Insurance:HEALTH PLAN KEERDOB: [address] [id number] [address]Rrv: [facility] CENTERPolicy Number: Repository [id number] () Date: [facility] [place] [address]DY: 10/26/2017 Secondary NOT GIVENUNK [place] Insurance:SELF PAY [facility] Number: Effective Repository Date:2017-10-26 10/09/2017 CLAIRE Schultz Primary CLAIRE VINESERDOB: Insurance:SECURE CARE KEERDOB: [facility] MEDICARE [id number] [place] [address]BI RECURRINGPolic 1 [facility] Repository [place], [place] Number: [place] [address]Jki: (792) [id number] [phone] () Date:Plan Name:MS 09/14/2017 CLAIRE M Primary CLAIRE Vivar KEERDOB: Insurance:SECURE CARE BISONERDOB: [facility] MEDICARE [id number] [place] [address] Number: [place] [id number]: [id number] Date:Plan Name:MS () 08/22/2017 CLAIRE Antoine Primary CLAIRE Vivar MOHINDERERDOB: Insurance:SECURE CARE BISONERDOB: [facility] MEDICARE [id number] [place] [address] 1 [facility] 514[facility] Repository [place] Number: [place] [id number]: [id number] Date:Plan Name:MS () 08/01/2017 CLAIRE Antoine Primary CLAIRE M [place] [id number] Insurance:HEALTH PLAN KEMPERDOB: [address] [id number] Memorial Hospital [address]Wul: [facility] Number: Repository [id number] () Date: [place], [place] [address]XM: 08/01/2017 Secondary NOT GIVENUNK Monserrat Insurance:SELF PAY [facility] Number: Effective Repository Date:2017-07-27 07/03/2017 CLAIRE Schultz Primary CLAIRE Vivar BISONERDOB: Insurance:MEDICARE KEERDOB: [facility] [id number] [facility] 514BIG Number: [address] Repository [facility] HOSPITALOsvaldoBay [place] [id number] [address] [place] [address], [id number]: Date:Plan Name:[facility] [id number] () 07/03/2017 Secondary CLAIRE Vivar [facility] Number: [id number] [facility] [id number] 1 [facility] 514BIG Repository Date:Plan Name:[id number] [facility]ONYABLUEGRASS COMM[facility] HOSPITALOsvaldoClark [facility] [id number] [place] [address]VO: 2017 CLAIRE M Primary CLAIRE Schultz [facility]B: Insurance:SECURECARE [facility]B: [facility] THP MEDICAREPolicy [id number] Repository [address] Number: [address] [place] [address], [id number] [address] [place] [address]Wjt: Date:2016-12-23 [place] [address]Uyr: [id number] ()Tel: [phone]) Name:[id number] [facility] () () [facility], [phone] () [place] [address]DD: 05/27/2017 CLAIRE M Primary CLAIRE GarayHollywood Community Hospital of Van NuysERB: Insurance:HUMANA KEERDOB: [facility] MEDICARE ADVANTAGE [id number] [facility] RT 514BIG OUTPATIENTPolicy 1 [facility] 514BIG Repository John PATEL Number: [place]YOs[place]do [place] [id number]: [id number] Date:Plan Name: ()
== END ==
PROVIDERS: Family Provider Family Medicine; PCP Family Medicine; Referring Provider Surgery; Visit Provider Surgery
DX: N64.59 Other signs and symptoms in breast (principal)
CPT/HCPCS: 76642

== ENCOUNTER → 2019-08-14 15:38 | Outpatient (CLI) | payer MEDICARE, SELFPAY ==
--- NOTE | 2019-08-14 16:10 | BD_ITS ---
STUDY: DUAL ENERGY X-RAY ABSORPTIOMETRY / DXA REASON FOR EXAM: Female, 64 years old. Age of latoya- 49. Pat is 131.7# and 63.5 and quot; a loss of .5 and quot; per pat. Past hx of taking rec last x 2 yrs.. Hx of fosamax in the past for 3-4 months. Uses prednisone for RA off and on. Takes gabapentin. Takes a multi-vit. Exercises moderately. Mother has osteo. Hx of a left patella fx. TECHNIQUE: Bone Mineral Density (BMD) measurements of lumbar spine and bilateral hips were obtained. COMPARISON: Comparison is made with prior examination dated November 18, 2015. FINDINGS: Lumbar Spine (L1-L4): g/cm2 (0.944) / T-score (-2.0) / Z-score (-0.4) Findings are suggestive of osteopenia with a moderate fracture risk. Left Femur Total: g/cm2 (0.786) / T-score (-1.8) / Z-score (-0.6) Left Femoral Neck: g/cm2 (0.720) / T-score (-2.3) / Z-score (-0.8) Right Femur Total: g/cm2 (0.796) / T-score (-1.7) / Z-score (-0.5) Right Femoral Neck: g/cm2 (0.708) / T-score (-2.4) / Z-score (-0.9) The T-Scores on the most recent prior examination were: Lumbar Spine (L1-L4): There has been worsening of bone density since the previous examination. Left Femur Total: which represents a worsening of 6.1%. Right Femur Total: which represents a worsening of 7.1%. BD/Dexa Bone Density Study IMPRESSION: The patient is considered osteopenic as outlined below according to World Andres Organization (WHO) criteria with a high fracture risk. There has been worsening of bone density since the previous examination. Reference Information: The T-score is the number of standard deviations above or below the standard which is normal for young adults at their peak bone mineral density. The World Health Organization (WHO) interprets the T-scores as follows: Above -1 Normal bone density Between -1 and -2.5 Osteopenia Equal to / or below -2.5 Osteoporosis As a practical clinical guideline, osteopenia may be graded as follows: Mild -1 through -1.5 Moderate -1.6 through -2.0 Severe -2.1 through -2.4 The Z-score is the number of standard deviations above or below age-matched controls. A Z-score of less than -1.5 would be considered abnormal. References: 1. NIH Osteoporosis and Related Bone Diseases http://www.osteo.org 2. International Society for Clinical Densitometry http://www.iscd.org 3. National Osteoporosis Foundation http://www.nof.org Electronically Signed: Dave Lutz, at 15:05 EST , Service support ,
== END ==
PROVIDERS: PCP Family Medicine; Referring Provider Internal Medicine Rheumatology; Visit Provider Internal Medicine Rheumatology
DX: M81.0 Age-related osteoporosis without current pathological fracture (principal)
CPT/HCPCS: 77080

== ENCOUNTER 2019-11-05 15:42 | Observation (INO) | payer MEDICARE, SELFPAY ==
[2019-11-05] VITALS (9 sets, daily range): BP systolic 114–146; BP diastolic 67–95; PULSE 78–102; RESP 13–19; TEMP 36.5–37.1; O2SAT 95–100; BMI 23.3; BMI 23.4; BMI 23.5
--- NOTE | 2019-11-05 16:04 | ED.RN ---
Addendum entered by Yusra Manzanares 11/05/19 16:21: DR. MAYERS MADE AWARE OF PT SX ON ARRIVAL TO ED. PT REPORTS SX STARTED AT 2100 YESTERDAY AND HAVE SINCE RESOLVED. STATES,MY NEUROLOGIST WANTED ME TO STILL COME IN AND BE EVALUATED. DR. MAYERS REPORTS THAT PT IS NOT A STROKE TEAM. PT PLACED ON COLLEGE SCOUTING COORDINATOR AND IV ESTABLISHED. DR. MAYERS REPORTS SHE WILL BE IN TO SEE PT. Original Note: dr. mayers, made aware of pt sx on arrival. reports pt is not a stroke team.
--- NOTE | 2019-11-05 16:07 | CT_ITS ---
STUDY: CT BRAIN WITHOUT CONTRAST REASON FOR EXAM: Female, 64 years old. RT SIDE WEAKNESS, TINGLING AND NUMBNESS IN LIPS, RT HAND, Elbow, foot, KNEE, HX- TIA RADIATION DOSAGE (If Supplied By Facility): CTDIvol = ( 44.99 ) mGy, DLP = ( 745.49 ) mGycm TECHNIQUE: Transaxial CT imaging of the brain was performed without administration of intravenous contrast material. Individualized dose optimization techniques were used for this CT. COMPARISON: December 11, 2016 FINDINGS: Normal soft tissue structures. There is hyperostosis frontalis internus. There is mild cerebral atrophy with widening of the extra-axial spaces and ventricular dilatation. There are areas of decreased attenuation within the white matter tracts of the supratentorial brain, consistent with microvascular disease changes. There are small punctate calcifications of the basal ganglia which are seen in the aging brain as a normal variant. Normal brainstem. There is mild cerebellar atrophy. There is no intracranial hemorrhage. There are no findings of an acute ischemic infarction. Normal visualized paranasal sinuses. CT/Brain/Head without Contrast IMPRESSION: Chronic involutional changes of the brain. Small vessel ischemia. Electronically Signed: Portia Piedra MD at 16:39 EDT Tel , Service support ,
--- NOTE | 2019-11-05 16:07 | EKG12_ITS ---
Test Reason : NUMB\TING Blood Pressure : / mmHG Vent. Rate : 084 BPM Atrial Rate : 084 BPM P-R Int : 162 ms QRS Dur : 124 ms QT Int : 410 ms P-R-T Axes : 055 083 029 degrees QTc Int : 484 ms Normal sinus rhythm Right bundle branch block Abnormal ECG Confirmed by TON MCGREGOR ([id number]), video tape editor HAYLEY SANDS ([id number]) on 11/10/2019 11:30:09 AM Referred By: ALFA Confirmed By:TON MCGREGOR
--- NOTE | 2019-11-05 16:07 | RAD_ITS ---
STUDY: X-RAY CHEST REASON FOR EXAM: Female, 64 years old. STROKE SYMPTOMS TECHNIQUE: Single frontal view of the chest. COMPARISON: February 28, 2015 and July 05, 2015, July 24, 2015 and December 11, 2016 FINDINGS: There is a 9 mm right basilar nodular opacity. Normal size heart. Normal mediastinum and chantel. Normal visualized pulmonary arteries. Normal visualized aortic arch and descending thoracic aorta. There are diffuse degenerative changes of the visualized thoracic spine. Normal visualized ribs, clavicles, and shoulders. There is no demonstrated abnormality of the visualized soft tissue structures of the upper abdomen. RAD/Chest 1 View IMPRESSION: 9 mm right basilar nodular opacity, this may be secondary to a confluence of shadows however cannot exclude a pulmonary nodule, consider repeat examination with a PA and lateral for further characterization. Electronically Signed: Portia Piedar MD at 16:42 EDT Tel , Service support ,
[2019-11-05 16:19] LABS: Absolute Lymphocyte Count 1.83 X10^3/uL (0.83-4.51); Absolute Neutrophil Count 1.8 X10^3/uL (2.0-7.7); Basophil# 0.04 X10^3/uL; Basophil% 0.9 % (0-1); Eosinophil# 0.23 X10^3/uL; Eosinophils% 5.1 % (0-5); Hematocrit 42.4 % (37-47); Hemoglobin 13.9 g/dL (12.0-15.0); Lymphocyte # 1.83 X10^3/ul (4.0); Lymphocyte % 40.9 % (19-41); Mean Corp Hgb Conc 32.8 g/dL (32-36); Mean Corpuscular Hgb 31.3 pg (27.0-32.0); Mean Corpuscular Volume 95.5 fL (81-99); Mean Platelet Vol. 9.8 fl (6.2-12.0); Monocyte# 0.52 X10^3/uL; Monocyte% 11.6 % (0-10); NRBC Flagged by Analyzer 0 % (0-5); Neutrophil # 1.84 X10^3/uL (2.7-7.7); Neutrophil % 41.3 % (47-70); Platelet Count 164 K/mm3 (150-450); RBC Distribution Width CV 13.8 % (11.6-14.6); RBC Distribution Width SD 47.8 fl (35.1-43.9); Red Blood Count 4.44 M/mm3 (4.2-5.4); White Blood Count 4.5 K/mm3 (4.4-11.0)
[2019-11-05 16:30] LABS: Prothrombin Time (Protime)PT. 12.9 SECONDS (11.7-14.9)
[2019-11-05 16:31] LABS: Partial Thromboplast Time 24.4 Seconds (24.1-36.2)
--- NOTE | 2019-11-05 16:41 | ED.DCSUM_ITS ---
History of Present Illness Chief Complaint: Numb/Ting Informant: Patient Onset: Yesterday Context: Gradual Onset Timing: Intermittent Quality and Location: Right Arm Parasthesia, Right Leg Parasthesia, Right Arm Weakness, - - Perioral numbness Narrative: Patient is a 64-year-old female with history of TIAs, stroke with no residual deficits hyperlipidemia and rheumatoid arthritis presenting with new neurologic symptoms. Patient states around 9 PM last night she developed progressive paresthesias of her right extremities. She also developed paresthesias around her mouth. She said the episode lasted for about 30 minutes. Throughout the day today she is continued to have some mild paresthesias of her hands and feels that her right hand is a little weaker than normal. She is left-hand dominant. She was dropping things this morning. Her symptoms currently have resolved. She called her neurologist today to let them know about her symptoms and he recommended she come to the emergency room. Patient denies any vision changes or speech changes. She states she had a stroke in June 2014 where she had left-sided weakness and expressive aphasia. This is very different. Patient notes over the past week she has had more tingling in her right hand and foot but she is on gabapentin for neuropathy as well as restless leg syndrome. Patient states she has a history of chronic intermittent chest pain. She did have an episode of chest pain lasting for 10 minutes that she describes as dull but that has since resolved. She states it seems to be more of a stress reaction and she is had 3 negative cardiac catheterizations in the past. Patient denies any other complaints at this time. Past Medical History - Allergies and Home Meds Allergies/Adverse Reactions: Allergies amoxicillin [From Augmentin] Allergy (Verified 11/05/19 15:44) Rash clavulanic acid [From Augmentin] Allergy (Verified 11/05/19 15:44) Rash Primary Care Physician: Giovanny Davis MD [Primary Care Provider] - Past Medical History: - - Rheumatoid arthritis, stroke, hyperlipidemia, restless leg syndrome Surgical History: appendectomy, cholecystectomy, hysterectomy, - - Mulitple corrective foot surgeries. Lives: Spouse/ Significant Other Smoking Status: Never smoker - Family History Paternal Family History: Family History (Last Reviewed 11/05/19 @ 18:17 by EDITH Elizondo) Mother Diabetes Heart disease Hypertension CAD (coronary artery disease) Sister Breast cancer Daughter CVA (cerebral vascular accident) Diabetes Family History: Reports: Cancer - Father of prostate cancer Offspring Family History: Family History (Last Reviewed 11/05/19 @ 18:17 by EDITH Elizondo) Mother Diabetes Heart disease Hypertension CAD (coronary artery disease) Sister Breast cancer Daughter CVA (cerebral vascular accident) Diabetes Family History: Reports: - - She has 1 daughter who had brain surgery for an AVM and also suffers from migraines Maternal Family History: Family History (Last Reviewed 11/05/19 @ 18:17 by EDITH Elizondo) Mother Diabetes Heart disease Hypertension CAD (coronary artery disease) Sister Breast cancer Daughter CVA (cerebral vascular accident) Diabetes Family History: Reports: No pertinent history Sibling Family History: Family History (Last Reviewed 11/05/19 @ 18:17 by EDITH Elizondo) Mother Diabetes Heart disease Hypertension CAD (coronary artery disease) Sister Breast cancer Daughter CVA (cerebral vascular accident) Diabetes Family History: Reports: Cancer - Sister of peritoneal carcinomatosis of undetermined origin Review of Systems General: Denies: Chills, Fever, Sweats Eyes: Denies: Visual changes - bilaterally, Diplopia ENT: Denies: Rhinorrhea, Sore throat Cardiovascular: Reports: Chest pain - Intermittent. Denies: Palpitations Respiratory: Denies: Dyspnea, Cough, Dyspnea on exertion Gastrointestinal: Denies: Abdominal pain, Nausea, Vomiting, Diarrhea, Melena, Hematochezia Genitourinary: Denies: Dysuria, Hematuria, Frequency Musculoskeletal: Denies: Back pain, Extremity Pain Skin: Denies: Rash, Wounds Neurological: Reports: Parasthesia - Right extremities and around mouth. Denies: Headache, Weakness - Right hand, Numbness STROKE Vital Signs/Narrative: Vital Signs Temp Pulse Resp BP Pulse Ox 11/05/19 16:08 98 11/05/19 15:44 98.7 F 102 H 16 133/87 H 97 Inital Vital Signs reviewed: Yes - NIHSS Initial 1a Level of Consciousness: 0 1b LOC Questions (Score 2 if aphasic/stupor): 0 1c LOC Commands (Only score 1st attempt): 0 2 Best Gaze (If aphasic, use reflexive mvmts.): 0 3 Visual: 0 4 Facial Palsy: 0 5 Motor Arm Right (UN = amputation/fusion): 0 5 Motor Arm Left: 0 6 Motor Leg Right: 0 6 Motor Leg Left: 0 7 Limb ataxia (Only + if out of proportion): 0 8 Sensory (Aphasia/stupor=0 or 1, coma=2): 0 9 Best Language: 0 10 Dysarthria (mute, coma=2, intubated=UN): 0 11 Extinction and Inattention (only scored if +): 0 Total Score: 0 General: Well nourished, Well developed Head: Normocephalic, Atraumatic Eyes: Perrl, EOMI ENT: Moist mucous membranes, No rhinorrhea Neck: Supple, Nontender Cardiovascular: Regular rate, Regular rhythm, No murmurs Respiratory: No distress, CTA bilaterally, Chest nontender Abdomen: Soft, Nontender, Nondistended, Normal bowel sounds Back: Nontender, Normal Inspection Extremities: Nontender, No edema Skin: Normal color, No rash Neurological: Alert, Oriented x3, Cranial nerves II-XII grossly intact, Normal Strength, Normal Sensation Psychological: Normal affect Diagnostic/Tx/Re-eval Clinical Impression(s) from Imaging Studies Brain CT 11/05/19 16:07 IMPRESSION: Chronic involutional changes of the brain. Small vessel ischemia. Electronically Signed: Portia Piedra MD at 16:39 EDT Tel , Service support , Chest X-Ray 11/05/19 16:07 IMPRESSION: 9 mm right basilar nodular opacity, this may be secondary to a confluence of shadows however cannot exclude a pulmonary nodule, consider repeat examination with a PA and lateral for further characterization. Electronically Signed: Portia Piedra MD at 16:42 EDT Tel , Service support , Laboratory Data 11/05/19 11/05/19 11/05/19 16:08 16:08 16:08 WBC 4.5 RBC 4.44 Hgb 13.9 Hct 42.4 MCV 95.5 MCH 31.3 MCHC 32.8 RDW Std Deviation 47.8 H RDW Coeff of Praveen 13.8 Plt Count 164 MPV 9.8 Immature Gran % (Auto) 0.200 Neut % (Auto) 41.3 L Lymph % (Auto) 40.9 [place] % (Auto) 11.6 H Eos % (Auto) 5.1 H Baso % (Auto) 0.9 Absolute Neuts (auto) 1.8 L Absolute Lymphs (auto) 1.83 Nucleated RBC % 0 PT 12.9 INR 1.0 APTT 24.4 Sodium 142 Potassium 3.7 Chloride 107 Carbon Dioxide 31.0 Anion Gap 4 L BUN 9 Creatinine 0.77 Estim Creat Clear Calc 62.90 Est GFR (MDRD) Af Amer 96 Est GFR (MDRD) Non-Af 79 BUN/Creatinine Ratio 11.6 Glucose 81 Calcium 9.1 Troponin I < 0.015 EKG Normal sinus rhythm at a rate of [address] segments Right bundle branch block No change compared to prior EKG on 12/11/2016 Chest X-Ray - ED: 1 View, Read by ED Physician, Read by Radiologist, No Acute Disease - Rhythm Strip Rhythm Strip: Sinus Rhythm Rate: 63 - Medical Decision Making Stroke Team Activated: No - Time of onset 16+ hours ago, symptoms resolved Patient evaluated for stroke like symptoms including right-sided paresthesias and right hand weakness. 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 Stroke work-up is largely negative for any acute process however her CT of the brain does show chronic microvascular ischemic changes. Patient will be made for further stroke work-up. Her EKG and laboratory findings are relatively unremarkable. She is given aspirin the emergency room. Patient is agreeable with plan. She stable for the general medical floor at time of disposition. ED Disposition - Plan for ED Patient: Disposition: Acute Care Hospital [facility] Diagnosis: Paresthesia of right arm and leg, Right hand weakness Referrals: Giovanny Davis MD [Primary Care Provider] -
[2019-11-05 17:38] LABS: Anion Gap 4 (5-15); BUN 9 mg/dL (7-18); BUN/Creat Ratio 11.6 RATIO (10-20); Calcium,Total 9.1 mg/dL (8.5-10.1); Chloride 107 mmol/L (98-107); Creatinine, Serum 0.77 mg/dL (0.55-1.02); EST Glomerular Filtration Rate 79 mL/min (>60); Est Glom Filt Rate - Afr Amer 96 mL/min (>60); Glucose 81 mg/dL (74-106); Potassium 3.7 mmol/L (3.5-5.1); Sodium Level 142 mmol/L (136-145)
[2019-11-05] MEDS: Aspirin 325 MG Tablet PO (17:43)
--- NOTE | 2019-11-05 17:53 | PCM.HP.STD ---
<Halle Arreguin - Last Filed: 11/05/19 18:24> History of Present Illness Date of Admission: 11/05/19 Chief Complaint: Stroke symptoms. The patient is a 64 year old F who presents emergency room due to right sided numbness and tingling. Patient reports she has had right-sided tingling intermittently for about a week however yesterday had numbness of the right arm from her elbow to wrist and right leg from her knee to ankle. She states the numbness lasted about 30 minutes and then resolved. She continued to have tingling of the right upper extremity and right lower extremity. Denies slurred speech, facial droop or facial numbness/tingling. Denies focal deficits. Patient has a history of stroke in 2015 with left-sided symptoms at that time. She reports TIAs since that time but no recurrent stroke. Patient states she was seen at [facility] within the last few years and had an image of her cervical spine and was told there was an abnormality which could contribute to numbness/tingling. She also reports right hand clumsiness and states she dropped a few things today. Patient has a past medical history of CVA/TIA, anxiety, depression, rheumatoid arthritis, GERD, ZAID, hyperlipidemia, restless leg syndrome. Past Medical History Past Medical History (Chronic Problems): Chronic Problems (Last Reviewed 05/06/18 @ 08:29 by Rochelle Hercules) Esophageal reflux (Chronic) IBS (irritable bowel syndrome) (Chronic) Osteoporosis (Chronic) Restless legs syndrome (RLS) (Chronic) Rheumatoid arthritis (Chronic) Anxiety and depression (Chronic) Borderline diabetes (Chronic) Dyslipidemia (Chronic) Immunosuppressed status (Chronic) on Enbrel and MTX for RA Unilateral vocal fold paresis (Chronic) Obstructive sleep apnea (Chronic) Right bundle branch block (Chronic) Colon polyps (Chronic) Medical History: Medical History (Last Reviewed 05/06/18 @ 08:29 by Rochelle Hercules) TIA (transient ischemic attack) (Acute) Esophageal reflux (Chronic) K21.9 IBS (irritable bowel syndrome) (Chronic) Osteoporosis (Chronic) M81.0 Restless legs syndrome (RLS) (Chronic) Rheumatoid arthritis (Chronic) M06.9 Anxiety and depression (Chronic) Borderline diabetes (Chronic) R73.03 Dyslipidemia (Chronic) E78.5 Immunosuppressed status (Chronic) D89.9 on Enbrel and MTX for RA Unilateral vocal fold paresis (Chronic) J38.01 Conversion disorder with speech symptoms, acute episode, 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) F44.4 TIA (transient ischemic attack) (Acute) doubt, suspect anxiety/conversion reaction Left-sided weakness (Acute) R53.1 Obstructive sleep apnea (Chronic) G47.33 Right bundle branch block (Chronic) I45.10 Colon polyps (Chronic) K63.5 Leukopenia (Acute) D72.819 Allergies amoxicillin [From Augmentin] Allergy (Verified 11/05/19 15:44) Rash clavulanic acid [From Augmentin] Allergy (Verified 11/05/19 15:44) Rash Home Medications: Ambulatory Orders Medication Instructions Recorded Cholecalciferol (VIT D3) [Vitamin 1 unit PO DAILY 11/14/14 D3] Etanercept [Enbrel] 50 mg SQ TU 11/14/14 Multivitamins,Ther W-Minerals 1 tab PO DAILY 11/14/14 [Multivitamin With Minerals (BKC)] Gabapentin [Neurontin] 900 mg PO QHS 12/11/16 methotrexate sodium 2.5 mg tablet 15 mg PO FR tab 03/13/18 Aspirin [Aspirin, Baby] 81 mg PO DAILY@0800 11/05/19 Duloxetine Hcl [Cymbalta] 60 mg PO QHS 11/05/19 Famotidine [Pepcid] 40 mg PO DAILY 11/05/19 Flaxseed Oil 1,000 mg PO DAILY 11/05/19 Fluticasone 0.05% [Flonase Nasal 2 spray NASAL BID PRN PRN 11/05/19 [place]] Folic Acid 0.8 mg PO QODAY 11/05/19 Folic Acid 1.6 mg PO QODAY 11/05/19 Lovastatin 10 mg PO QHS 11/05/19 Magnesium Oxide [Magnesium] 500 mg PO DAILY 11/05/19 Surgical History: Surgical History (Last Reviewed 05/06/18 @ 08:29 by Rochelle Hercules) H/O foot surgery Z98.890 H/O left heart catheterization by cutdown Z98.890 S/P hysterectomy Z90.710 S/P laparoscopic cholecystectomy Z90.49 Surgical History: appendectomy, cholecystectomy, hysterectomy, - - Mulitple corrective foot surgeries. 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 Lives: Spouse/ Significant Other Smoking Status: Never smoker Alcohol: None Drugs: None - *Family History Paternal Family History: Family History (Last Reviewed 11/05/19 @ 18:17 by EDITH Elizondo) Mother Diabetes Heart disease Hypertension CAD (coronary artery disease) Sister Breast cancer Daughter CVA (cerebral vascular accident) Diabetes History Items: Cancer - Father of prostate cancer Offspring Family History: Family History (Last Reviewed 11/05/19 @ 18:17 by EDITH Elizondo) Mother Diabetes Heart disease Hypertension CAD (coronary artery disease) Sister Breast cancer Daughter CVA (cerebral vascular accident) Diabetes History Items: - - She has 1 daughter who had brain surgery for an AVM and also suffers from migraines Maternal Family History: Family History (Last Reviewed 11/05/19 @ 18:17 by EDITH Elizondo) Mother Diabetes Heart disease Hypertension CAD (coronary artery disease) Sister Breast cancer Daughter CVA (cerebral vascular accident) Diabetes History Items: No pertinent history Sibling Family History: Family History (Last Reviewed 11/05/19 @ 18:17 by EDITH Elizondo) Mother Diabetes Heart disease Hypertension CAD (coronary artery disease) Sister Breast cancer Daughter CVA (cerebral vascular accident) Diabetes History Items: Cancer - Sister of peritoneal carcinomatosis of undetermined origin Review of Systems Constitutional: Denies: Chills, Fever, Weight Change HEENT: Denies: Head Aches, Sinus Congestion, Sinus Drainage Cardiovascular: Denies: Chest Pain, Palpitations Respiratory: Denies: Cough, Shortness of breath at rest, Sputum production Gastrointestinal: Denies: Abdominal Pain, Nausea, Vomiting Genitourinary: Denies: Dysuria Musculoskeletal: Denies: Joint Pain, Joint Tenderness Skin: Denies: Rash, Wounds Neurological: Reports: Numbness, Tingling. Denies: Blurred vision, Slurred speech, Confusion, Focal weakness Psychiatric: Denies: Anxiety, Depression, Homicidal Ideations, Suicidal Ideations Hematologic/ Lymphatic: Denies: Easy Bruising, Easy Bleeding VTE Information - Inpt Only VTE Present on Admission: No VTE Mechan Device Prophylaxis: None VTE Pharm Prophylaxis ordered?: Yes - Physical Exam Vitals/I&O's: Vital Signs Temp Pulse Resp BP Pulse Ox 98.7 F 93 13 122/78 H 96 05/27/20 15:44 11/05/19 16:46 11/05/19 16:46 11/05/19 16:46 11/05/19 16:46 Oxygen Delivery Method Room Air Weight: 136 lb Body Mass Index (BMI) 23.3 Finger Stick Blood Glucose 112 General: Alert, Oriented x3, Cooperative HEENT: Atraumatic, PERRLA, EOMI, Normocephalic Neck: Supple, No JVD, Negative Carotid Bruits Lungs: Clear to auscultation, Normal air movement Cardiovascular: Regular rate, Regular Rhythm, Normal S1, Normal S2, No murmurs Abdomen: Bowel Sounds Present, Soft, Non Tender, Non-Distended Extremities: No clubbing, No cyanosis, No edema, Capillary Refill Less than 3 Seconds Skin: No rashes, No breakdown Musculoskeletal: No Tenderness to Palpation of Joints or Extremities Neurological: Cranial nerves II-XII grossly intact, Neuro grossly intact Psych/Mental Status: Normal Affect, Appropriate Laboratory Results 11/05/19 16:08: WBC 4.5, RBC 4.44, Hgb 13.9, Hct 42.4, MCV 95.5, MCH 31.3, MCHC 32.8, RDW Std Deviation 47.8 H, RDW Coeff of [place]ve[place] 13.8, Plt Count 164, MPV 9.8, Immature Gran % (Auto) 0.200, Neut % (Auto) 41.3 L, Lymph % (Auto) 40.9, [place] % (Auto) 11.6 H, Eos % (Auto) 5.1 H, Baso % (Auto) 0.9, Absolute Neuts (auto) 1.8 L, Absolute Lymphs (auto) 1.83, Nucleated RBC % 0 11/05/19 16:08: PT 12.9, INR 1.0, APTT 24.4 11/05/19 16:08: Sodium 142, Potassium 3.7, Chloride 107, Carbon Dioxide 31.0, Anion Gap 4 L, BUN 9, Creatinine 0.77, Estim Creat Clear Calc 62.90, Est GFR (MDRD) Af Amer 96, Est GFR (MDRD) Non-Af 79, BUN/Creatinine Ratio 11.6, Glucose 81, Calcium 9.1, Troponin I < 0.015 Assessment/Plan All Active Problems (Last Reviewed 05/06/18 @ 08:29 by Rochelle Hercules) Paresthesia of right arm and leg (Acute) Right hand weakness (Acute) TIA (transient ischemic attack) (Acute) Conversion disorder with speech symptoms, acute episode, 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 Right upper extremity/right lower extremity numbness and tingling-history of CVA/TIA. Brain CT admission with chronic changes. Small vessel ischemia. Patient allergic to contrast dye, unable to obtain CTA. Will obtain carotid ultrasound. MRI of brain. Aspirin, statin. Lipid profile in a.m. Hemoglobin A1c. PT/OT/ST. Pending imaging, plan for [facility] neurology consult. If neurology work-up is unremarkable, may consider cervical spine etiology. Will request records from [facility] for prior cervical spine imaging as patient reports it was abnormal. Patient follows with Dr. Diallo as outpatient for neurology. 2. Anxiety/depression-continue duloxetine. 3. Rheumatoid arthritis-on methotrexate. 4. GERD-continue famotidine regimen. 5. ZAID-patient states she has not been wearing her BiPAP lately and is scheduled for repeat sleep study for pressure adjustments. 6. Hyperlipidemia-continue statin. Patient reports she is allergic to other brands of statin and has been tolerating lovastatin. 7. Restless leg syndrome-on gabapentin nightly. DVT prophylaxis-Lovenox subcu This patient was seen by EDITH Elizondo under the supervision of Dr. Mckinley. <Serafin Mckinley F - Last Filed: 11/05/19 18:54> History of Present Illness The patient is a 64 year old F [] Past Medical History Medical History: Medical History (Last Reviewed 05/06/18 @ 08:29 by Rochelle Hercules) TIA (transient ischemic attack) (Acute) Esophageal reflux (Chronic) K21.9 IBS (irritable bowel syndrome) (Chronic) Osteoporosis (Chronic) M81.0 Restless legs syndrome (RLS) (Chronic) Rheumatoid arthritis (Chronic) M06.9 Anxiety and depression (Chronic) Borderline diabetes (Chronic) R73.03 Dyslipidemia (Chronic) E78.5 Immunosuppressed status (Chronic) D89.9 on Enbrel and MTX for RA Unilateral vocal fold paresis (Chronic) J38.01 Conversion disorder with speech symptoms, acute episode, 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) F44.4 TIA (transient ischemic attack) (Acute) doubt, suspect anxiety/conversion reaction Left-sided weakness (Acute) R53.1 Obstructive sleep apnea (Chronic) G47.33 Right bundle branch block (Chronic) I45.10 Colon polyps (Chronic) K63.5 Leukopenia (Acute) D72.819 Allergies amoxicillin [From Augmentin] Allergy (Verified 11/05/19 15:44) Rash clavulanic acid [From Augmentin] Allergy (Verified 11/05/19 15:44) Rash Surgical History: Surgical History (Last Reviewed 05/06/18 @ 08:29 by Rochelle Hercules) H/O foot surgery Z98.890 H/O left heart catheterization by cutdown Z98.890 S/P hysterectomy Z90.710 S/P laparoscopic cholecystectomy Z90.49 - *Family History Paternal Family History: Family History (Last Reviewed 11/05/19 @ 18:17 by EDITH Elizondo) Mother Diabetes Heart disease Hypertension CAD (coronary artery disease) Sister Breast cancer Daughter CVA (cerebral vascular accident) Diabetes Offspring Family History: Family History (Last Reviewed 11/05/19 @ 18:17 by EDITH Elizondo) Mother Diabetes Heart disease Hypertension CAD (coronary artery disease) Sister Breast cancer Daughter CVA (cerebral vascular accident) Diabetes Maternal Family History: Family History (Last Reviewed 11/05/19 @ 18:17 by EDITH Elizondo) Mother Diabetes Heart disease Hypertension CAD (coronary artery disease) Sister Breast cancer Daughter CVA (cerebral vascular accident) Diabetes Sibling Family History: Family History (Last Reviewed 11/05/19 @ 18:17 by EDITH Elizondo) Mother Diabetes Heart disease Hypertension CAD (coronary artery disease) Sister Breast cancer Daughter CVA (cerebral vascular accident) Diabetes - Physical Exam Vitals/I&O's: Vital Signs Temp Pulse Resp BP Pulse Ox 98.3 F 84 18 146/89 H 100 11/05/19 18:42 11/05/19 18:42 11/05/19 18:42 11/05/19 18:42 11/05/19 18:42 Oxygen Delivery Method Room Air Weight: 136 lb 10.986 oz Body Mass Index (BMI) 23.4 Finger Stick Blood Glucose 112 Laboratory Results 11/05/19 16:08: WBC 4.5, RBC 4.44, Hgb 13.9, Hct 42.4, MCV 95.5, MCH 31.3, MCHC 32.8, RDW Std Deviation 47.8 H, RDW Coeff of [place]ve[place] 13.8, Plt Count 164, MPV 9.8, Immature Gran % (Auto) 0.200, Neut % (Auto) 41.3 L, Lymph % (Auto) 40.9, [place] % (Auto) 11.6 H, Eos % (Auto) 5.1 H, Baso % (Auto) 0.9, Absolute Neuts (auto) 1.8 L, Absolute Lymphs (auto) 1.83, Nucleated RBC % 0 11/05/19 16:08: PT 12.9, INR 1.0, APTT 24.4 11/05/19 16:08: Sodium 142, Potassium 3.7, Chloride 107, Carbon Dioxide 31.0, Anion Gap 4 L, BUN 9, Creatinine 0.77, Estim Creat Clear Calc 62.90, Est GFR (MDRD) Af Amer 96, Est GFR (MDRD) Non-Af 79, BUN/Creatinine Ratio 11.6, Glucose 81, Calcium 9.1, Troponin I < 0.015 Current Medications Sodium Chloride () 500 mls @ 15 mls/hr IV PRN PRN PRN Reason: Blood Transfusion Sodium Chloride () 250 mls @ 15 mls/hr IV .[id number] PRN PRN Reason: Saline Flush Sodium Chloride () 250 mls @ 15 mls/hr IV .[id number] PRN PRN Reason: Additional IVPB Infusion Sodium Chloride () 10 - 40 ml IV UD PRN PRN Reason: SALINE FLUSH Addendum: Dr. Mckinley I personally examined the patient and reviewed the chart. I agree with the above. 64-year-old female presenting with signs of a CVA with paresthesias on the right side of her body that started last night around 9 PM. She says it because she has had intermittent numbness she thought that it would go away however when it did not she called her neurologist office today who recommended she come into the hospital. She had a work-up that was unremarkable and her NIH in the ED was: 0. She has some right upper and right lower extremity weakness compared to the left side. But is otherwise unremarkable. Reflexes are intact. She has had previous extensive work-up as recently as 2016. Will obtain a carotid Doppler because she is allergic to contrast and will obtain an MRI in the morning. Also will place her on Lovenox for DVT prophylaxis that she is had a DVT in the past but she is off Eliquis. We will also add her on Plavix however she states that she was having easy bruising and nosebleeds with full dose aspirin therefore we will monitor this closely and if necessary can back off of the Plavix. Also she is on lovastatin and that is because she has been having a climbing cholesterol numbers, though she does have intermittent chest pain and jaw pain with statin medications though she seems to be tolerating the lovastatin over the last 8 weeks. We will not increase the dose. Will discuss the case with her outpatient neurologist as well as consulting [facility] neurology tomorrow once all the imaging is back. OBSV E&M: [id number] Initial observation care L3
--- NOTE | 2019-11-05 18:01 | NURSING ---
PCU OBS STROKE SYMPTOMS [place]
--- NOTE | 2019-11-05 18:53 | CDU_ITS ---
Reason For Study: CVA Rt. Velocities/BP Lt. Velocities/BP Prox CCA 94.3/29.1 cm/sec. Prox CCA 86.3/27.4 cm/sec. Mid CCA 98.2/26.5 cm/sec. Mid CCA 92.5/32.3 cm/sec. Dist CCA 94.3/31.7 cm/sec. Dist CCA 85.1/29.8 cm/sec. Prox ICA 65.6/25.2 cm/sec. Prox ICA 68.4/22.3 cm/sec. Mid ICA 66.9/26.5 cm/sec. Mid ICA 71.7/30 cm/sec. Dist ICA 77.3/35.6 cm/sec. Dist ICA 59.7/26.7 cm/sec. Rt. ICA/CCA = 0.82. Lt. ICA/CCA = 0.83. Prox ECA 60.4/13.4 cm/sec. Prox ECA 61.9/17.9 cm/sec. Rt. Vert. 58.9/14.5 cm/sec. Lt. Vert. 55.1/19.2 cm/sec. Right Extracranial There is intimal thickening but no significant atherosclerotic plaque noted in the right common carotid artery. There is intimal thickening but no significant atherosclerotic plaque noted in the right internal carotid artery. There is intimal thickening but no significant atherosclerotic plaque noted in the right external carotid artery. Antegrade flow is noted in the right vertebral artery. Left Extracranial There is intimal thickening but no significant atherosclerotic plaque noted in the left common carotid artery. There is heterogeneous, irregular atherosclerotic plaque noted in the left internal carotid artery. There is intimal thickening but no significant atherosclerotic plaque noted in the left external carotid artery. Antegrade flow is noted in the left vertebral artery. Procedure Carotid Duplex [id number]. Exam performed portable in patient room. Interpretation Summary No hemodynamically significant plaque or stenosis right extracranial internal carotid artery with less than 50% stenosis Less than 50% stenosis right external carotid artery Minimal calcific plaque with shadowing proximal left internal carotid artery Less than 50% stenosis left internal carotid Less than 50% stenosis left external carotid Patent and antegrade vertebrals bilaterally Ordering Physician: Serafin Mckinley Referring Physician: Giovanny Davis Performed By: Margarette Murillo RVT
[2019-11-05] MEDS: Gabapentin 300 MG Capsule 900 MG PO (22:54)
[2019-11-05] MEDS: DULoxetine Hcl 60 MG Capsule PO (22:54)
[2019-11-06 01:27] VITALS: BP 134/88; PULSE 85; RESP 16; TEMP 36.4; O2SAT 99
[2019-11-06 03:00] VITALS: PULSE 73
[2019-11-06 05:25] VITALS: BP 121/80; PULSE 74; RESP 16; TEMP 36.5; O2SAT 97
--- NOTE | 2019-11-06 05:55 | MRI_ITS ---
STUDY: MRI BRAIN WITHOUT CONTRAST REASON FOR EXAM: Female, 64 years old. cva, right side weakness, n/t TECHNIQUE: Standardized multiplanar fat and water weighted pulse sequences were obtained. COMPARISON: 12/11/2016, CT 11/05/2019 FINDINGS: There is mild cerebral atrophy with widening of the extra-axial spaces and ventricular dilatation. There are a limited number of small white matter hyperintensities, distributed throughout the deep white matter tracts of the cerebral hemispheres, consistent with mild chronic white matter ischemic changes. There is no evidence for recent intracranial ischemia or other cause of cytotoxic edema on diffusion weighted imaging (DWI). Normal T2* images of the brain without demonstrated susceptibility artifact. There is no demonstrated hemosiderin stain. Normal bilateral basal ganglia. Normal thalami. There is no extra-axial fluid accumulation. Normal flow voids within the major intracranial circulation suggesting patency by spin echo criteria. Normal sella turcica, pituitary gland, infundibular stalk, optic chiasm and hypothalamus. Normal tectal plate and pineal gland. There are chronic white matter ischemic changes of the [place]. The midbrain and medulla are otherwise normal. Normal cerebellum. Normal basal cisterns. Normal bilateral temporal bones. Normal bilateral internal auditory canals. No demonstrated orbital abnormality, within the constraints of a routine brain study. Normal visualized paranasal sinuses. Normal calvarium and skull base. Normal visualized soft tissue structures. Normal visualized upper cervical spine. MRI/Brain without Contrast IMPRESSION: Involutional changes of the brain, as described above. No acute infarct. Electronically Signed: Dimas Page MD at 9:08 EDT Tel , Service support ,
[2019-11-06 06:23] LABS: Absolute Lymphocyte Count 1.52 X10^3/uL (0.83-4.51); Absolute Neutrophil Count 1.7 X10^3/uL (2.0-7.7); Basophil# 0.03 X10^3/uL; Basophil% 0.7 % (0-1); Eosinophil# 0.28 X10^3/uL; Eosinophils% 6.9 % (0-5); Hematocrit 43.4 % (37-47); Hemoglobin 13.7 g/dL (12.0-15.0); Lymphocyte # 1.52 X10^3/ul (4.0); Lymphocyte % 37.4 % (19-41); Mean Corp Hgb Conc 31.6 g/dL (32-36); Mean Corpuscular Volume 95.2 fL (81-99); Mean Platelet Vol. 9.9 fl (6.2-12.0); Monocyte# 0.53 X10^3/uL; Monocyte% 13.1 % (0-10); NRBC Flagged by Analyzer 0 % (0-5); Neutrophil # 1.69 X10^3/uL (2.7-7.7); Neutrophil % 41.7 % (47-70); Platelet Count 154 K/mm3 (150-450); RBC Distribution Width CV 13.6 % (11.6-14.6); RBC Distribution Width SD 47.4 fl (35.1-43.9); Red Blood Count 4.56 M/mm3 (4.2-5.4); White Blood Count 4.1 K/mm3 (4.4-11.0)
[2019-11-06 06:40] LABS: Anion Gap 4 (5-15); BUN 8 mg/dL (7-18); BUN/Creat Ratio 10.4 RATIO (10-20); Calcium,Total 8.5 mg/dL (8.5-10.1); Chloride 106 mmol/L (98-107); Cholesterol 172 mg/dL (200); Creatinine, Serum 0.77 mg/dL (0.55-1.02); EST Glomerular Filtration Rate 80 mL/min (>60); Est Glom Filt Rate - Afr Amer 97 mL/min (>60); Glucose 127 mg/dL (74-106); High Density Lipoprotein 47 mg/dL; Sodium Level 140 mmol/L (136-145); Triglycerides 105 mg/dL; Very Low Density Lipoprotein 21 mg/dL (5-40)
[2019-11-06 06:47] VITALS: PULSE 72
[2019-11-06 07:16] VITALS: O2SAT 95
[2019-11-06] MEDS: Aspirin 81 MG TAB.CHEW PO (07:43)
[2019-11-06] MEDS: Famotidine 20 MG Tablet 40 MG PO (07:44)
[2019-11-06] MEDS: Enoxaparin 40 MG/0.4 ML Syringe SC (07:44)
[2019-11-06] MEDS: Folic Acid 1 MG Tablet PO (07:44)
[2019-11-06] MEDS: Clopidogrel Bisulfate 75 MG Tablet PO (07:44)
[2019-11-06 08:00] VITALS: BMI 23.4
[2019-11-06 09:00] VITALS: BP 122/79; PULSE 76; RESP 18; TEMP 36.6; O2SAT 98
--- NOTE | 2019-11-06 10:06 | CASEMGMT ---
Social Work MRI indicates no new infarct. PHQ 9 not indicated at this time. DIANNE Jeronimo
--- NOTE | 2019-11-06 10:12 | CASEMGMT ---
Social Work Pt stating she does have Living will and HCPOA naming her and daughter. Document are not in the medical record and pt notified and will bring in documents when able. DIANNE Jeronimo
--- NOTE | 2019-11-06 10:36 | MRI_ITS ---
STUDY: MRA OF THE HEAD WITHOUT CONTRAST REASON FOR EXAM: Female, 64 years old. CVA, RIGHT SIDE N/T TECHNIQUE: 3-D [id number] (TOF) imaging was performed with MIPs. The study was performed unenhanced. COMPARISON: 12/11/2016 FINDINGS: Normal bilateral petrous carotid arteries. Normal right cavernous carotid artery with a normal supraclinoid bifurcation. Normal left cavernous carotid artery with a normal supraclinoid bifurcation. Normal right A1 segments of the anterior cerebral artery. Normal left A1 segments of the anterior cerebral artery. Normal intact anterior communicating artery (ACOM). Normal bilateral A2 segments of the anterior cerebral arteries. Normal right M1 and M2 segments of the middle cerebral arteries, with a normal M1 bifurcation. Normal left M1 and M2 segments of the middle cerebral arteries, with a normal M1 bifurcation. Normal right posterior communicating artery (PCOM). Normal left posterior communicating artery (PCOM). Normal bilateral vertebral arteries. Normal basilar artery with a normal basilar bifurcation. The visualized bilateral superior cerebellar (SCA) arteries are normal. Normal bilateral P1, P2 and visualized P3 segments of the posterior cerebral arteries. There is no demonstrated aneurysm of the [place]. There is no major vessel occlusion or hemodynamically significant stenosis. There is no demonstrated abnormality of the visualized brain. MRI/MRA Head ONLY without Contrast IMPRESSION: Normal MRA of the head Electronically Signed: Dimas Page MD at 13:07 EDT Tel , Service support ,
--- NOTE | 2019-11-06 10:36 | MRI_ITS ---
STUDY: MRA NECK WITHOUT CONTRAST REASON FOR EXAM: Female, 64 years old. CVA, RT SIDED N/T TECHNIQUE: Source images were obtained, MIPs were performed. The study was performed unenhanced. COMPARISON: 12/11/2016 FINDINGS: RIGHT CAROTID ARTERIES: Normal right common carotid artery (CCA). Normal right common carotid bulb. Normal origin of the right internal carotid (ICA) artery without a hemodynamically significant stenosis. Normal visualized cervical portion of the right internal carotid artery. Normal origin of the right external carotid artery (ECA). LEFT CAROTID ARTERIES: Normal left common carotid artery (CCA). Normal left common carotid bulb. Normal origin of the left internal carotid (ICA) artery without a hemodynamically significant stenosis. Normal visualized cervical portion of the left internal carotid artery. Normal origin of the left external carotid artery (ECA). VERTEBRAL ARTERIES: Normal antegrade flow within the bilateral vertebral artery without a hemodynamically significant stenosis. MRI/MRA Neck without Contrast IMPRESSION: Normal bilateral cervical carotid and vertebral arteries. Electronically Signed: Dimas Page MD at 13:09 EDT Tel , Service support ,
--- NOTE | 2019-11-06 10:46 | DCINST_ITS ---
- Discharge Diagnoses Current Active Problems: Current Active and Chronic Problems (Last Reviewed 05/06/18 @ 08:29 by Rochelle Hercules) Paresthesia of right arm and leg (Acute) Right hand weakness (Acute) You will use the following diet at home:: Cardiac Your food should be the consistency of: Regular Your liquids should be the consistency of: Regular/Thin Discharge Activity: Return to Normal Activity Allergies/Adverse Reactions: Allergies amoxicillin [From Augmentin] Allergy (Verified 11/05/19 15:44) Rash clavulanic acid [From Augmentin] Allergy (Verified 11/05/19 15:44) Rash atorvastatin [From Lipitor] Adverse Reaction (Verified 11/05/19 22:51) Chest tightness Medications to take at Discharge Cholecalciferol (VIT D3) [Vitamin D3] 1 unit PO DAILY 11/14/14 Etanercept [Enbrel] 50 mg SQ TU 11/14/14 Multivitamins,Ther W-Minerals [Multivitamin With Minerals (BKC)] 1 tab PO DAILY 11/14/14 Gabapentin [Neurontin] 900 mg PO QHS 12/11/16 methotrexate sodium 2.5 mg tablet 15 mg PO FR tab 03/13/18 Aspirin [Aspirin, Baby] 81 mg PO DAILY@0800 11/05/19 Duloxetine Hcl [Cymbalta] 60 mg PO QHS 11/05/19 Famotidine [Pepcid] 40 mg PO DAILY 11/05/19 Flaxseed Oil 1,000 mg PO DAILY 11/05/19 Fluticasone 0.05% [Flonase Nasal [place]] 2 spray NASAL BID PRN PRN 11/05/19 Folic Acid 0.8 mg PO QODAY 11/05/19 Folic Acid 1.6 mg PO QODAY 11/05/19 Lovastatin 10 mg PO QHS 11/05/19 Magnesium Oxide [Magnesium] 500 mg PO DAILY 11/05/19 Clopidogrel Bisulfate [Plavix] 75 mg PO DAILY #30 tab 11/06/19 The following prescriptions were given: Clopidogrel Bisulfate [Plavix] 75 mg PO DAILY #30 tab Transmission Status: Pending to [facility] Primary Care Physician: Giovanny Davis MD [Primary Care Provider] - Please follow up with your Primary Care Physician in: 1-2 weeks Test Results: Test results from this visit will be discussed in further detail at your follow- up appointment, if applicable. Please Follow Up With: Dr. Diallo - Neurology When: 2 weeks Proposed Discharge Date: 11/06/19
--- NOTE | 2019-11-06 15:35 | PCM.DC.SUM ---
<Antione Hidalgo - Last Filed: 11/06/19 15:35> Discharge Date and Diagnosis Date of Admission: 11/05/19 Date of Discharge: 11/06/19 - Primary Discharge Diagnosis Acute Problems: TIA hx CVA GERD IBS RA Anx/Dep - Secondary Discharge Diagnosis Chronic Problems: Chronic Problems (Last Reviewed 05/06/18 @ 08:29 by Rochelle Hercules) Esophageal reflux (Chronic) IBS (irritable bowel syndrome) (Chronic) Osteoporosis (Chronic) Restless legs syndrome (RLS) (Chronic) Rheumatoid arthritis (Chronic) Anxiety and depression (Chronic) Borderline diabetes (Chronic) Dyslipidemia (Chronic) Immunosuppressed status (Chronic) on Enbrel and MTX for RA Unilateral vocal fold paresis (Chronic) Obstructive sleep apnea (Chronic) Right bundle branch block (Chronic) Colon polyps (Chronic) Hospital Course and Treatment Imaging Results: CT/Brain/Head without Contrast IMPRESSION: Chronic involutional changes of the brain. Small vessel ischemia. RAD/Chest 1 View IMPRESSION: 9 mm right basilar nodular opacity, this may be secondary to a confluence of shadows however cannot exclude a pulmonary nodule, consider repeat examination with a PA and lateral for further characterization. Carotid Duplex: Interpretation Summary No hemodynamically significant plaque or stenosis right extracranial internal carotid artery with less than 50% stenosis Less than 50% stenosis right external carotid artery Minimal calcific plaque with shadowing proximal left internal carotid artery Less than 50% stenosis left internal carotid Less than 50% stenosis left external carotid Patent and antegrade vertebrals bilaterally MRI/Brain without Contrast IMPRESSION: Involutional changes of the brain, as described above. No acute infarct. MRI/MRA Head ONLY without Contrast IMPRESSION: Normal MRA of the head MRI/MRA Neck without Contrast IMPRESSION: Normal bilateral cervical carotid and vertebral arteries. Operations: None Procedures: None Summary of Care Provided: Hospital course: The patient is a 64 year old F past medical history as above who presented to the emergency room with right-sided paresthesias in her upper and lower extremity as well as feeling of weakness in the upper and lower extremity on the right. She had had a prior stroke but in the past her symptoms have been on the left side. She had no residual deficits. This is been happening intermittently over the preceding week. She called her neurologist who recommended that she come to the emergency room. CT of the brain was negative. Chest x-ray is negative. Patient was admitted to PCU. She had no events on telemetry. She had resolution of her symptoms by the following morning. An MRI was obtained and did not show stroke. Carotid ultrasound was obtained and demonstrated some 50% stenosis of the right internal carotid artery, less than 50% stenosis right external carotid artery, less than 50% stenosis left internal carotid, less than 50% stenosis left external carotid, patent and antegrade vertebrals bilaterally. She was started on Plavix. Her neurologist was contacted who recommended continuing Plavix and obtaining an uncontrasted MRA of the head and neck. She has a contrast allergy. This was obtained and demonstrated no acute abnormalities. The patient was discharged in stable condition. She will need to follow-up with her neurologist, Dr. Diallo, in 2 weeks, with her PCP in 1 to 2 weeks. This patient was seen by Antione Hidalgo PA-C under the supervision of Doctor Elías. [] - Physical Exam Vitals/I&O's: Vital Signs Temp Pulse Resp BP Pulse Ox 97.9 F 76 18 122/79 H 98 11/06/19 09:00 11/06/19 09:00 11/06/19 09:00 11/06/19 09:00 11/06/19 09:00 Oxygen Delivery Method Room Air Weight: 136 lb 10.986 oz Body Mass Index (BMI) 23.4 Finger Stick Blood Glucose 112 Intake and Output for Last 24 Hours 11/04/19 11/05/19 11/06/19 23:59 23:59 23:59 Intake Total 150 / 150 300 / 300 Balance 150 / 150 300 / 300 General: Alert, Oriented x3, Cooperative HEENT: Atraumatic, PERRLA, EOMI, Normocephalic Neck: Supple, No JVD, Negative Carotid Bruits Lungs: Clear to auscultation, Normal air movement Cardiovascular: Regular rate, No murmurs Abdomen: Bowel Sounds Present, Soft, Non Tender Extremities: No edema, Capillary Refill Less than 3 Seconds Skin: No rashes, No breakdown Musculoskeletal: No Tenderness to Palpation of Joints or Extremities Neurological: Cranial nerves II-XII grossly intact Psych/Mental Status: Normal Affect, Appropriate, Alert and oriented to time, place, person, mood and affect Laboratory Results 11/05/19 16:08: WBC 4.5, RBC 4.44, Hgb 13.9, Hct 42.4, MCV 95.5, MCH 31.3, MCHC 32.8, RDW Std Deviation 47.8 H, RDW Coeff of Praveen 13.8, Plt Count 164, MPV 9.8, Immature Gran % (Auto) 0.200, Neut % (Auto) 41.3 L, Lymph % (Auto) 40.9, Duchesne % (Auto) 11.6 H, Eos % (Auto) 5.1 H, Baso % (Auto) 0.9, Absolute Neuts (auto) 1.8 L, Absolute Lymphs (auto) 1.83, Nucleated RBC % 0 11/05/19 16:08: PT 12.9, INR 1.0, APTT 24.4 11/05/19 16:08: Sodium 142, Potassium 3.7, Chloride 107, Carbon Dioxide 31.0, Anion Gap 4 L, BUN 9, Creatinine 0.77, Estim Creat Clear Calc 62.90, Est GFR (MDRD) Af Amer 96, Est GFR (MDRD) Non-Af 79, BUN/Creatinine Ratio 11.6, Glucose 81, Calcium 9.1, Troponin I < 0.015 11/06/19 06:00: WBC 4.1 L, RBC 4.56, Hgb 13.7, Hct 43.4, MCV 95.2, MCH 30.0, MCHC 31.6 L, RDW Std Deviation 47.4 H, RDW Coeff of Praveen 13.6, Plt Count 154, MPV 9.9, Immature Gran % (Auto) 0.200, Neut % (Auto) 41.7 L, Lymph % (Auto) 37.4, Duchesne % (Auto) 13.1 H, Eos % (Auto) 6.9 H, Baso % (Auto) 0.7, Absolute Neuts (auto) 1.7 L, Absolute Lymphs (auto) 1.52, Nucleated RBC % 0 11/06/19 06:00: Sodium 140, Potassium 4.0, Chloride 106, Carbon Dioxide 30.0, Anion Gap 4 L, BUN 8, Creatinine 0.77, Estim Creat Clear Calc 62.90, Est GFR (MDRD) Af Amer 97, Est GFR (MDRD) Non-Af 80, BUN/Creatinine Ratio 10.4, Glucose 127 H, Calcium 8.5, Triglycerides 105, Cholesterol 172, LDL Cholesterol 104, VLDL Cholesterol 21, HDL Cholesterol 47 Discharge Diet: Low fat/ Low Cholesterol, 2000 mg Sodium Diet Discharge Activity: Return to Normal Activity Home Medications: Medications to take at Discharge Cholecalciferol (VIT D3) [Vitamin D3] 1 unit PO DAILY 11/14/14 Etanercept [Enbrel] 50 mg SQ TU 11/14/14 Multivitamins,Ther W-Minerals [Multivitamin With Minerals (BKC)] 1 tab PO DAILY 11/14/14 Gabapentin [Neurontin] 900 mg PO QHS 12/11/16 methotrexate sodium 2.5 mg tablet 15 mg PO FR tab 03/13/18 Aspirin [Aspirin, Baby] 81 mg PO DAILY@0800 11/05/19 Duloxetine Hcl [Cymbalta] 60 mg PO QHS 11/05/19 Famotidine [Pepcid] 40 mg PO DAILY 11/05/19 Flaxseed Oil 1,000 mg PO DAILY 11/05/19 Fluticasone 0.05% [Flonase Nasal Challenge] 2 spray NASAL BID PRN PRN 11/05/19 Folic Acid 0.8 mg PO QODAY 11/05/19 Folic Acid 1.6 mg PO QODAY 11/05/19 Lovastatin 10 mg PO QHS 11/05/19 Magnesium Oxide [Magnesium] 500 mg PO DAILY 11/05/19 Clopidogrel Bisulfate [Plavix] 75 mg PO DAILY #30 tab 11/06/19 Following Prescrptions Were Given to Patient: Clopidogrel Bisulfate [Plavix] 75 mg PO DAILY #30 tab Transmission Status: Received by [facility] Primary Care Physician: Giovanny Davis MD [Primary Care Provider] - Please follow up with your Primary Care Physician in: 1-2 weeks Please Follow Up With: Dr. Diallo - Neurology When: 2 weeks Disposition: Home Minutes spent on discharge:: 35 Patient Condition:: Stable Medical Necessity - Tobacco Use Smoking Status: Never smoker Meaningful Use Info Meaningful Use Diagnoses (Choose all that apply): None applicable <Serafin Mckinley - Last Filed: 11/06/19 16:15> Discharge Date and Diagnosis - Secondary Discharge Diagnosis Chronic Problems: Chronic Problems (Last Reviewed 05/06/18 @ 08:29 by Rochelle Hercules) Esophageal reflux (Chronic) IBS (irritable bowel syndrome) (Chronic) Osteoporosis (Chronic) Restless legs syndrome (RLS) (Chronic) Rheumatoid arthritis (Chronic) Anxiety and depression (Chronic) Borderline diabetes (Chronic) Dyslipidemia (Chronic) Immunosuppressed status (Chronic) on Enbrel and MTX for RA Unilateral vocal fold paresis (Chronic) Obstructive sleep apnea (Chronic) Right bundle branch block (Chronic) Colon polyps (Chronic) Hospital Course and Treatment Imaging Results: 11/06/19 10:36 MRA Head ONLY without Contrast [MRI] Urgent MRA Neck without Contrast [MRI] Urgent Summary of Care Provided: The patient is a 64 year old F [] - Physical Exam Vitals/I&O's: Vital Signs Temp Pulse Resp BP Pulse Ox 97.9 F 76 18 122/79 H 98 11/06/19 09:00 11/06/19 09:00 11/06/19 09:00 11/06/19 09:00 11/06/19 09:00 Oxygen Delivery Method Room Air Weight: 136 lb 10.986 oz Body Mass Index (BMI) 23.4 Finger Stick Blood Glucose 112 Intake and Output for Last 24 Hours 11/04/19 11/05/19 11/06/19 23:59 23:59 23:59 Intake Total 150 / 150 300 / 300 Balance 150 / 150 300 / 300 Laboratory Results 11/05/19 16:08: WBC 4.5, RBC 4.44, Hgb 13.9, Hct 42.4, MCV 95.5, MCH 31.3, MCHC 32.8, RDW Std Deviation 47.8 H, RDW Coeff of Praveen 13.8, Plt Count 164, MPV 9.8, Immature Gran % (Auto) 0.200, Neut % (Auto) 41.3 L, Lymph % (Auto) 40.9, Duchesne % (Auto) 11.6 H, Eos % (Auto) 5.1 H, Baso % (Auto) 0.9, Absolute Neuts (auto) 1.8 L, Absolute Lymphs (auto) 1.83, Nucleated RBC % 0 11/05/19 16:08: PT 12.9, INR 1.0, APTT 24.4 11/05/19 16:08: Sodium 142, Potassium 3.7, Chloride 107, Carbon Dioxide 31.0, Anion Gap 4 L, BUN 9, Creatinine 0.77, Estim Creat Clear Calc 62.90, Est GFR (MDRD) Af Amer 96, Est GFR (MDRD) Non-Af 79, BUN/Creatinine Ratio 11.6, Glucose 81, Calcium 9.1, Troponin I < 0.015 11/06/19 06:00: WBC 4.1 L, RBC 4.56, Hgb 13.7, Hct 43.4, MCV 95.2, MCH 30.0, MCHC 31.6 L, RDW Std Deviation 47.4 H, RDW Coeff of Praveen 13.6, Plt Count 154, MPV 9.9, Immature Gran % (Auto) 0.200, Neut % (Auto) 41.7 L, Lymph % (Auto) 37.4, Duchesne % (Auto) 13.1 H, Eos % (Auto) 6.9 H, Baso % (Auto) 0.7, Absolute Neuts (auto) 1.7 L, Absolute Lymphs (auto) 1.52, Nucleated RBC % 0 11/06/19 06:00: Sodium 140, Potassium 4.0, Chloride 106, Carbon Dioxide 30.0, Anion Gap 4 L, BUN 8, Creatinine 0.77, Estim Creat Clear Calc 62.90, Est GFR (MDRD) Af Amer 97, Est GFR (MDRD) Non-Af 80, BUN/Creatinine Ratio 10.4, Glucose 127 H, Calcium 8.5, Triglycerides 105, Cholesterol 172, LDL Cholesterol 104, VLDL Cholesterol 21, HDL Cholesterol 47 Addendum: Dr. Mckinley I personally examined the patient and reviewed the chart. I agree with the above. 64-year-old female presenting with signs of a CVA with paresthesias on the right side of her body that started last night around 9 PM. She says it because she has had intermittent numbness she thought that it would go away however when it did not she called her neurologist office today who recommended she come into the hospital. She had a work-up that was unremarkable and her NIH in the ED was: 0. She had some right upper and right lower extremity weakness compared to the left side on admission however this is resolved on the day of discharge. But is otherwise unremarkable. Reflexes are intact. She has had previous extensive work-up as recently as 2017. Carotid Doppler was unremarkable, and the MRA of the head and neck without contrast were unremarkable as well. The MRI of the brain did not show an acute stroke. We will continue with her Plavix as well as aspirin, and monitor for any epistaxis and bruising as an outpatient. If necessary can discontinue the Plavix. Also she is on lovastatin and that is because she has been having climbing cholesterol numbers, though she does have intermittent chest pain and jaw pain with statin medications though she seems to be tolerating the lovastatin over the last 8 weeks. We will not increase the dose, her LDL is 104, HDL is 47 and her triglycerides are 105. I discussed the case with her outpatient neurologist who will see her in the office and recommend that she follow-up with her PCP as well in a week or so. OBSV E&M: [id number] Observation care discharge
--- OUTSIDE RECORDS SUMMARY | 2020-03-23 18:04 | XMS RPT_ITS | CCD ---
:1955 External Reference #:[id number] Author Organization [employer] Care Team Providers Name Role Phone AVILA, A Unavailable Unavailable JOVITA, G Unavailable Unavailable JOVITA, G Unavailable Unavailable JAMMOUL Unavailable Unavailable Anil PENA Unavailable Unavailable AVILA, A Unavailable Unavailable Nas Avila Primary Care Provider Antoine TURNER Admitting Unavailable JOHNNY, M Attending Unavailable JOHNNY, M Primary Care Unavailable AVILA, A Consulting Unavailable PROVIDER Consulting Unavailable PROVIDER Consulting Unavailable PROVIDER Consulting Unavailable AVILA, A Admitting Unavailable AVILA, A Attending Unavailable AVILA, A Primary Care Unavailable AVILA, A Consulting Unavailable PROVIDER Consulting Unavailable PROVIDER Consulting Unavailable PROVIDER Consulting Unavailable DIALLO Admitting Unavailable DIALLO Attending Unavailable DIALLO Primary Care Unavailable AVILA, A Consulting Unavailable PROVIDER Consulting Unavailable PROVIDER Consulting Unavailable PROVIDER Consulting Unavailable JOHNNY, M Admitting Unavailable JOHNNY, M Attending Unavailable JOHNNY, M Primary Care Unavailable AVILA, A Consulting Unavailable PROVIDER Consulting Unavailable PROVIDER Consulting Unavailable PROVIDER Consulting Unavailable JOHNNY, M Admitting Unavailable JOHNNY, M Attending Unavailable JOHNNY, M Primary Care Unavailable AVILA, A Consulting Unavailable PROVIDER Consulting Unavailable PROVIDER Consulting Unavailable PROVIDER Consulting Unavailable JOHNNY, M Admitting Unavailable JOHNNY, M Attending Unavailable JOHNNY, M Primary Care Unavailable AVILA, A Consulting Unavailable PROVIDER Consulting Unavailable PROVIDER Consulting Unavailable PROVIDER Consulting Unavailable SCAR, E Admitting Unavailable SCAR, E Attending Unavailable SCAR, E Primary Care Unavailable AVILA, A Consulting Unavailable PROVIDER Consulting Unavailable PROVIDER Consulting Unavailable PROVIDER Consulting Unavailable Allergies Reported Allergen Reaction(s) Severity Date of Onset Location Amoxicillin / Rash 05-04-2017 - [facility] Clavulanate (68283) Amoxicillin / Moderate (Severity Abdias Pom erene Cl[facility]ulanate [facility] Iodine Swelling 11-14-2019 - [facility] (10252) Medications Medication Name Sig Date Prescriber Location Ascorbic Acid Ascorbic Acid [facility] Provider [facility] (VITAMIN C) chew Take Provider (91801 ) 500 mg by mouth once daily. 0 Active Comment: Take 500 mg by mouth once da daiana. Aspirin aspirin, enteric coated [facility] Provider [facility] (99306) (ASPIRIN, ENTERIC COATED) Provider 81 mg EC tablet Take 81 mg by mouth once daily. 0 Active Comment: Take 81 mg by mouth once tracy ly. Cholecalciferol Cholecalciferol, Vitamin 11-09-2011 Sanjay Da Silva [facility] D3, (VITAMIN D) 1,000 [facility] (4 5984) unit Cap Take 1 capsule by mouth once daily. 0 11/09/2011 Active Comment: Take 1 capsule by mouth once daily. DULoxetine DULoxetine (CYMBALTA) 60 [facility] Provider [facility] (96116) mg capsule Take 60 mg by Provider mouth daily at bedtime. 0 Active Comment: Take 60 mg by mouth daily at bedtime. Etanercept etanercept(ENBREL 50 MG/ML 02-16-2010 Sonal Pimentel ([facility] ) [facility] (0.98 ML) SUB-Q SYRINGE) (Hist) Michael (31 195) takes once weekly. 0 Sonal K ([facility]) 02/16/2010 Active (Hist) Michael Comment: takes once weekly. Famotidine famotidine (PEPCID) 20 mg [facility] Provider [facility] (41482) tablet Take 40 mg by Provider mouth twice daily. 0 Active Comment: Take 40 mg by mouth twice da daiana. fluticasone fluticasone (FLONASE) 10-28-2014 Ccf Provider [facility] 50 mcg/actuation nasal (4419 5) spray Folic Acid FOLIC ACID 1 mg ORAL 08-08-2010 Ccf Provider [facility] tablet (45537) gabapentin gabapentin (NEURONTIN) 01-05-2020 - Yann Diallo [facility] 300 mg capsule 07-05-2020 Yann Diallo (12208) Indications: RLS (restless legs syndrome) Take 3 capsules daily as instructed. 270 capsule 0 01/05/2020 07/05/2020 Active Comment: Take 3 capsules daily as ins tructed. Linseed Oil flaxseed 1,000 mg cap [facility] Provider [facility] (69648) Take by mouth. 0 Active Provider Comment: Take by mouth. Loratadine loratadine (CLARITIN) 10 [facility] Provider [facility] (34033) mg tablet Take 10 mg by Provider mouth as needed. 0 Active Comment: Take 10 mg by mouth as neede d. Lovastatin lovastatin (MEVACOR) 10 Ccf Provider [facility] (22132) mg tablet Take 10 mg by Provider mouth daily at bedtime. 0 Active Comment: Take 10 mg by mouth daily at bedtime. MAGNESIUM GLUCONATE magnesium gluconate Ccf Provider C [facility] (MAG-G) 27 mg (500 mg) Provider (4419 5) tab Take by mouth once daily. 0 Active Comment: Take by mouth once daily. Methotrexate methotrexate 2.5 mg tablet Ccf Provider C [facility] Take 2.5 mg by mouth every Provider ( 22524) Sunday. 0 Active Comment: Take 2.5 mg by mouth every F riday. MULTI-VITAMIN ORAL MULTI-VITAMIN ORAL Take Ccf Provide r [facility] by mouth. 0 Active Provider (53897) Comment: Take by mouth. Nitroglycerin NITROSTAT 0.4 mg 07-19-2015 Ccf Provider [facility] tablet (10733) VITAMIN B COMPLEX ORAL VITAMIN B COMPLEX Ccf Provider [facility] ORAL Take by mouth Provider (27047) once daily. 0 Active Comment: Take by mouth once daily. 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 metabolism (35051) Disorders of teeth and Congenital micrognathism Active 2014 - [facility] jaw (47603) Esophageal disorders Gastroesophageal reflux Active 9 - [facility] disease (34313) Headache; including Migraine without aura, Active 07-19-2017 - [facility] migraine not refractory (87244) Mood disorders Hypomania Active 02-12-2009 - [facility] (38869) Other and ill-defined Small vessel Active 07-19-2017 - [facility] cerebrovascular disease cerebrovascular disease (86340) Other gastrointestinal Irritable bowel syndrome Active 2014 - [facility] disorders with diarrhea (59310) Other hereditary and Restless legs Active 02-24-2019 - [facility] degenerative nervous (91628) system conditions Residual codes; Obstructive sleep apnea Active 04-05-2015 - [facility] unclassified syndrome (94657) Rheumatoid arthritis and Rheumatoid arthritis Active [facility] related disease (09245) Thyroid disorders Multinodular goiter Active 04-05-2015 - [facility] (10830) Transient cerebral Transient cerebral Active 04-05-2015 - [facility] ischemia ischemia (02100) Unclassified Patient encounter status Active 02-16-2009 - [facility] (84043) Past or Other Problems Category Problem Name Status Date Location Diabetes mellitus Impaired fasting Completed 02-16-2009 - [facility] without complication glycaemia (30274) Neoplasms of unspecified Neoplasm of uncertain Completed [facility] nature or uncertain behavior of skin (441 95) behavior Nonmalignant breast Inversion of nipple Completed 05-15-2018 - [facility] conditions (67866) Other bone disease and Osteopenia Completed 02-12-2009 - [facility] musculoskeletal (49282) deformities Other circulatory H/O: TIA Completed 02-24-2019 - [facility] disease (02092) Other screening for Cardiovascular stress Completed 02-12-2009 - [facility] suspected conditions test abnormal (42702 ) (not mental disorders or infectious disease) Results Result Name Value Range Unit Interpretation Flag Date Location sgpt (alt) on 03-12 ALT [Catalytic activity/Vol] 17 8 - 35 U/L Normal 1 [facility] ( 49560) Comment: Performed By: #### [id number] ## ## [facility],[address] [place] [address] sgot (ast) on 03-12 AST/SGOT 22 13 - 39 U/L Normal 03-12-2020 [facility] (84088) Comment: Performed By: #### [id number] ## ## [facility],[address] [place] [address] 92476 sedrate on SEDRATE 13 0 - 30 mm/hr Normal 03-12-2020 [facility] (96879) Comment: Performed By: #### [id number] ## ## [facility],[address] [place] [address] 86773 creatinine on 03-12 Creatinine [Mass/Vol] 0.8 0.6 - 1.2 mg/dl Normal 03-12-20 [facility] ( 79875) Comment: Performed By: #### [id number] ## ## [facility],[address] [place] [address] 32413 cbc + diff on 03-12 Basophils (Bld) 0.00 0.00 - 0.10 x10EE3/UL Normal 03-12-2020 [facility] [#/Vol] [facility] (00015) Comment: Performed By: #### [id number] ## ## [facility],[address] [place] [address] 52180 Basophils/100 WBC (Bld) 0.7 0.0 - 2.0 % Normal 2019 [facility] ( 28503) Comment: Performed By: #### [id number] ## ## [facility],[address] [place] [address] 05853 CBC + DIFF Normal 03-12-2020 [facility] (31785) Comment: Result Comment: CBC-COMPLETE BLOOD COUNT Performed By: #### [id number] ## ## [facility],[address] [place] [address] 08441 Eosinophils (Bld) 0.30 0.00 - 0.50 x10EE3/UL Normal 03-12-2020 [facility] [#/Vol] [facility] (48125) Comment: Performed By: #### [id number] ## ## [facility],[address] [place] [address] 07740 Eosinophils/100 WBC (Bld) 6.8 0.0 - 7.0 % Normal 100 [facility] ( 48497) Comment: Performed By: #### [id number] ## ## [facility],[address] [place] [address] 61564 Erythrocyte distribution 14.7 12.0 - 15.6 % Normal [facility] width (RBC) [Ratio] Hospital (99283) Comment: Performed By: #### [id number] ## ## [facility],[address] [place] [address] 39944 Hematocrit (Bld) [Volume 41.2 34.0 - 46.0 % Normal [facility]] [facility] ( 67194) Comment: Performed By: #### [id number] ## ## [facility],[address] [place] [address] 71112 Hemoglobin (Bld) 14.0 12.0 - 16.0 g/dl Normal 03-12-2020 [facility] [Mass/Vol] [facility] (07809) Comment: Performed By: #### [id number] ## ## [facility],[address] [place] [address] 51944 Lymphocytes (Bld) 1.70 0.80 - 2.80 x10EE3/UL Normal 03-12-2020 [facility] [#/Vol] [facility] (16578) Comment: Performed By: #### [id number] ## ## [facility],[address] [place] [address] 26099 Lymphocytes/100 WBC (Bld) 35.1 20.0 - 45.0 % Normal [facility] ( 54189) Comment: Performed By: #### [id number] ## ## [facility],[address] [place] [address] 82290 MANUAL DIFF N/A Normal 03-12-2020 [facility] (88639) Comment: Performed By: #### [id number] ## ## [facility],[address] [place] [address] 15209 MCH (RBC) [Entitic mass] 32 27 - 33 pg Normal 03-12 [facility] ( 92279) Comment: Performed By: #### [id number] ## ## [facility],[address] [place] [address] 81018 MCHC (RBC) [Mass/Vol] 34 32 - 36 X10 3 Normal 03-12-20 20 [facility] ( 39716) Comment: Performed By: #### [id number] ## ## [facility],[address] [place] [address] 69208 MCV (RBC) [Entitic vol] 94 80 - 99 fl Normal 2019 [facility] ( 79907) Comment: Performed By: #### [id number] ## ## [facility],[address] [place] [address] 02318 Monocytes (Bld) 0.50 0.20 - 1.00 x10EE3/UL Normal 03-12-2020 [facility] [#/Vol] [facility] (71229) Comment: Performed By: #### [id number] ## ## [facility],[address] [place] [address] 71402 MONOS % 9.7 0.0 - 10.0 % Normal 03-12-2020 [facility] (77610) Comment: Performed By: #### [id number] ## ## [facility],[address] [place] [address] 31551 Morphology Kasi (Bld) [Interp] N/A Normal 03-12-2020 [facility] ( 49294) Comment: Performed By: #### [id number] ## ## [facility],[address] [place] [address] 82267 Neutrophils (Bld) 2.30 1.50 - 7.10 x10EE3/UL Normal 03-12-2020 [facility] [#/Vol] [facility] (37547) Comment: Performed By: #### [id number] ## ## [facility],[address] [place] [address] 07674 Neutrophils/100 WBC (Bld) 47.7 46.0 - 76.0 % Normal [facility] ( 00441) Comment: Performed By: #### [id number] ## ## [facility],[address] [place] [address] 96530 Platelet mean volume 7.9 6.6 - 10.5 fl Normal 03-12-20 20 [facility] (d) [Entitic vol] [facility] (32247) Comment: Result Comment: AUTOMATED DI FFERENTIAL Performed By: #### [id number] ## ## [facility],[address] [place] [address] 48047 Platelets (Bld) 209 150 - 450 x10EE3/UL Normal 03-12-2020 [facility] [#/Vol] [facility] (11149[facility] Comment: Performed By: #### [id number] ## ## [facility],[address] [place] [address] 68403 RBC (Bld) [#/Vol] 4.38 4.10 - 5.30 x 10EE6/UL Normal 0 [facility] (57979) Comment: Performed By: #### [id number] ## ## [facility],[address] [place] [address] 58480 WBC (Bld) [#/Vol] 4.9 4.5 - 10.8 x 10EE3/UL Normal 03-12-2020 [facility] ( 37080) Comment: Performed By: #### [id number] ## ## [facility],[address] [place] [address] 90153 c-reactive protein on 2020-03-12 CRP [Mass/Vol] <0.10 0.00 - 1.00 mg/L Normal 03-12-2020 [facility] ( 48680) Comment: Performed By: #### [id number] ## ## [facility],[address] [place] [address] 13296 bun on 2020-03-12 Urea nitrogen [Mass/Vol] 13 6 - 20 mg/dl Normal 03-12 [facility] ( 45045) Comment: Performed By: #### [id number] ## ## [facility],[address] [place] [address] 46342 albumin plasma on Albumin [Mass/Vol] 4.2 3.4 - 4.8 g/dL Normal 03-12-2020 [facility] ( 71989) Comment: Performed By: #### [id number] ## ## [facility],[address] [place] [address] 55375 cnpn on 2020-03-04 CNPN Telephone (NEURBA) Normal 03-04-2020 [place] CLAIRE Ross ([id number]) 1955 F Medical Date Time Provider Department Center 03/04/20 YANN DIALLO JR NEURBA ([id number]) During your visit today, we recorded the following informati on about you: El Prasad 03/04/2020 2:14 PM Signed Patient is requesting a refill of her Gabapentin be se nt to [facility]. Last seen in office on 12/15/19. PATRICIA Lafleur 03/04/2020 4:09 PM Signed Spoke with patient who states she only has a wee k left. Verified she received last refill end of December and is taking it 3x per day. Spoke with Same at [facility] who s tates last refill was shipped 01/07/20. PATRICIA Lafleur NCMA 03/05/2020 3:[address] Diallo unfortunately patient is a month early and we will not be able to fill this medication. Left message to call back. PATRICIA Lafleur NCMA 03/05/2020 3:35 PM Signed Patient notified and verbalized understanding. PATRICIA Lafleur Allergies As of Date: 03/04/2020 Noted Allergy Reaction AUGMENTIN (AMOXICILLIN-POT CLAVUL*05/04/2017 2 - Rash CONTRAST DYE (IODINE) 11/14/2019 7 - Swelling Date Reviewed: 12/19/2019 Reviewed by: Masha San - Fully Assessed Reason for Visit: Rx Refills [128] Cmt: Gabapentin Prescriptions as of 03/04/2020 Sig: GABAPENTIN 300 MG CAPSULE Take 3 capsules daily as inst* LORATADINE 10 MG TABLET Take 10 mg by mouth as needed. DULOXETINE 60 MG CAPSULE,JAIDEN* Take 60 mg by mouth daily at * MAGNESIUM GLUCONATE 27 MG MAG* Take by mouth once daily. ASCORBIC ACID (VITAMIN C) 500* Take 500 mg by mouth once tracy * LOVASTATIN 10 MG TABLET Take 10 mg by mouth daily at * FLAXSEED 1,000 MG CAPSULE Take by mouth. FLUTICASONE PROPIONATE 50 MCG* VITAMIN B COMPLEX ORAL Take by mouth once daily. METHOTREXATE SODIUM 2.5 MG TA* Take 2.5 mg by mouth every Fr * FAMOTIDINE 20 MG TABLET Take 40 mg by mouth twice tracy* NITROSTAT 0.4 MG SUBLINGUAL T* ASPIRIN 81 MG TABLET,DELAYED * Take 81 mg by mouth once shane * MULTI-VITAMIN ORAL Take by mouth. * CHOLECALCIFEROL (VITAMIN D3) * Take 1 capsule by mouth onc e * * FOLIC ACID 1 MG TABLET * ENBREL 50 MG/ML (1 ML) SUBCUT* takes once weekly. Problem List As Of Date 03/04/2020 Noted Resolved Rheumatoid arthritis (HCC) [M06.9] More... More... More... Abnormal Stress Test [R94.39] 02/12/2009 More... Hypomania [F30.8] 02/12/2009 More... PVC's 02/12/2009 More... Osteopenia [M85.80] 02/12/2009 Routine Gynecological Examination [Z01.419] 02/16/2009 Class: Chronic More... GERD (Gastroesophageal Reflux Disease) [K21.9] 02/16/2009 More... Impaired Fasting Glucose [R73.01] 02/16/2009 Neoplasm of uncertain behavior of skin [D48.5] 03/30/2010 Irritable bowel syndrome with diarrhea [K58.0] 03/24/2015 Hyperlipidemia [E78.5] 04/05/2015 ZAID (obstructive sleep apnea) [G47.33] 04/05/2015 Multiple thyroid nodules [E04.2] 04/05/2015 TIA (transient ischemic attack) [G45.9] 04/05/2015 Anxiety neurosis [F41.1] 04/05/2015 RBBB [I45.10] 04/05/2015 Micrognathia [M26.09] 04/05/2015 Family history of colon cancer [Z80.0] 04/08/2015 04/08/2015 Migraine aura without headache [G43.109] 07/19/2017 Left pontine stroke (HCC) [I63.50] 07/19/2017 Cerebrovascular small vessel disease [I67.9] 07/19/2017 Inversion of nipple [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 Breast swelling [N63.0] 07/05/2018 12/04/2018 More... RLS (restless legs syndrome) [G25.81] 02/24/2019 History of TIA (transient ischemic attack) [Z86*02/24/2019 Migraine without aura and without status migrai*02/24/2019 Encounter Status:Closed by RUTH MOMIN on 03/05/20 obsolete on 2019-12 OBSOLETE Refill (NEMOWS) [id number] 1955 [facility] Date Time Provider Department ([id number]) 01/05/20 YANN DIALLO JR During your visit today, we recorded the following informati on about you: Tri Malvin MCCANN 01/05/2020 4:31 PM Signed Patient calling asking gabapentin rx to be sent to her mail away pharmacy, [facility] please. Patient said local pharmacy is for acute rx only. Rx cheaper if goes to her mail way pharmacy. Pending rx to go [facility]. Please advise Patient has been identified by name and date of : Yes Patient phones for refill(s): Pending Prescriptions Disp Refills GABAPENTIN 300 MG CAPSULE 270 capsule 0 Sig: Take 3 capsules daily as instructed. DION: No Date of last office visit in primary care: 12/15/2019 Yoel Last 2 Encounter Wt Readings: Date: Wt: 12/19/2019 60.8 kg (134 lb) 12/15/2019 61.8 kg (136 lb 3.2 oz) Previous labs/tests for medication: Not applicable Please advise. Thank you. Tri Diallo MD 01/05/2020 4:58 PM Signed PDMP website checked and validated. All prescrip tions have been APPROPRIATELY filled. No suspicious activity was identified. 01/05/20 20 by Yann Diallo MD Allergies As of Date: 01/05/2020 Noted Allergy Reaction AUGMENTIN (AMOXICILLIN-POT CLAVUL*05/04/2017 2 - Rash CONTRAST DYE (IODINE) 11/14/2019 7 - Swelling Date Reviewed: 12/19/2019 Reviewed by: Masha San - Fully Assessed Reason for Visit: Refill Request [94] Visit Diagnosis:RLS (restless legs syndrome) [G25.81] Order(s):gabapentin (NEURONTIN) 300 mg capsuleTake 3 capsule s daily as instructed.Disp: 270 capsuleRfl: 0 Prescriptions as of 01/05/2020 Sig: GABAPENTIN 300 MG CAPSULE Take 3 capsules daily as inst* LORATADINE 10 MG TABLET Take 10 mg by mouth as needed. DULOXETINE 60 MG CAPSULE,JAIDEN* Take 60 mg by mouth daily at * MAGNESIUM GLUCONATE 27 MG MAG* Take by mouth once daily. ASCORBIC ACID (VITAMIN C) 500* Take 500 mg by mouth once tracy * LOVASTATIN 10 MG TABLET Take 10 mg by mouth daily at * FLAXSEED 1,000 MG CAPSULE Take by mouth. FLUTICASONE PROPIONATE 50 MCG* VITAMIN B COMPLEX ORAL Take by mouth once daily. METHOTREXATE SODIUM 2.5 MG TA* Take 2.5 mg by mouth every Fr * FAMOTIDINE 20 MG TABLET Take 40 mg by mouth twice tracy* NITROSTAT 0.4 MG SUBLINGUAL T* ASPIRIN 81 MG TABLET,DELAYED * Take 81 mg by mouth once shane * MULTI-VITAMIN ORAL Take by mouth. * CHOLECALCIFEROL (VITAMIN D3) * Take 1 capsule by mouth onc e * * FOLIC ACID 1 MG TABLET * ENBREL 50 MG/ML (1 ML) SUBCUT* takes once weekly. Problem List As Of Date 01/05/2020 Noted Resolved Rheumatoid arthritis (HCC) [M06.9] More... More... More... Abnormal Stress Test [R94.39] 02/12/2009 More... Hypomania [F30.8] 02/12/2009 More... PVC's 02/12/2009 More... Osteopenia [M85.80] 02/12/2009 Routine Gynecological Examination [Z01.419] 02/16/2009 Class: Chronic More... GERD (Gastroesophageal Reflux Disease) [K21.9] 02/16/2009 More... Impaired Fasting Glucose [R73.01] 02/16/2009 Neoplasm of uncertain behavior of skin [D48.5] 03/30/2010 Irritable bowel syndrome with diarrhea [K58.0] 03/24/2015 Hyperlipidemia [E78.5] 04/05/2015 ZAID (obstructive sleep apnea) [G47.33] 04/05/2015 Multiple thyroid nodules [E04.2] 04/05/2015 TIA (transient ischemic attack) [G45.9] 04/05/2015 Anxiety neurosis [F41.1] 04/05/2015 RBBB [I45.10] 04/05/2015 Micrognathia [M26.09] 04/05/2015 Family history of colon cancer [Z80.0] 04/08/2015 04/08/2015 Migraine aura without headache [G43.109] 07/19/2017 Left pontine stroke (HCC) [I63.50] 07/19/2017 Cerebrovascular small vessel disease [I67.9] 07/19/2017 Inversion of nipple [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 Breast swelling [N63.0] 07/05/2018 12/04/2018 More... RLS (restless legs syndrome) [G25.81] 02/24/2019 History of TIA (transient ischemic attack) [Z86*02/24/2019 Migraine without aura and without status migrai*02/24/2019 Prescriptions ordered this encounter Disp Refills Start End GABAPENTIN 300 MG CAPSULE 270 * 0 01/05/2020 07/05/2020 Class: [facility] Sig: Take 3 capsules daily as instructed. Medications Discontinued During This Encounter gabapentin (NEURONTIN) 300 mg capsule 270 * 0 12/15/20192019 Sig: Take 3 capsules daily as instructed. Disc: Reason for discontinue is not on file. Encounter Status:Closed by YANN DIALLO on 01/05/20 progress on 2019-12 PROGRESS HNO ID: [id number] Normal 12-19-2019 [facility] Author: Masha San [facility] Service: ? ([id number]) Author Type: Physician Type: Progress Notes Filed: 12/19/2019 11:06 AM Note Text: Masha San MD [facility] [address] [place], [place] [id number] SUBJECTIVE Chief Complaint: Patient presents with: Yearly Exam . HPI Claire Guevara is a 64 year old female here today for foll ow up. She is status post left breast duct excisional biopsy on 05/2018 for new onset nipple inversion and negative imaging. Final patho logy showed duct ectasia. ? Today, she had bilateral mammograms done which I reviewed. T hey showed scattered fibroglandular tissue, post op changes in the left breast and nothing suspicious, BIRADS 2. ? She denies palpating any breast masses or axillary adenopath y. No skin or nipple changes. No nipple discharge. Nursing Notes: Rani Skinner RN 12/19/2019 10:56 AM Signed Denies any new palpable masses skin changes or pain. Mammogr am of 12/05/19 was negative Rani Skinner RN AGE AT MENARCHE 12 AGE AT FIRST 23 (2) FAMILY HISTORY OF BREAST CANCER Yes (neice) PREVIOUS BREAST BIOPSIES Yes (1) RACE ANTONY MODEL RISK 4 YEAR 1.8 ANTONY MODEL RISK LIFETIME 6.6 Review of Systems Constitutional: Negative for fever, malaise/fatigue and weig ht loss. Breast: See HPI PAST MEDICAL HISTORY Diagnosis Date - Abdominal pain - Abnormal breast exam - Arthritis - Bipolar 1 disorder (HCC) - Chest pain - Constipation - Coronary artery disease - Depression - Diabetes (HCC) - Diarrhea - Disorder of bone and cartilage, unspecified - Dizziness - Ear pain - Generalized anxiety disorder - Golfer's elbow, right - Headache - History of medical problems [...] time of gallbladder - APPENDECTOMY 2012 - BX OF BREAST; INCISIONAL Left 05/27/2018 mildly ectatic duct spaces - CHOLECYSTECTOMY 2012 - COLONOSCOP W/ OR W/O [facility] SPEC 08/13 Colonoscopy - COLONOSCOP W/ OR W/O [facility] SPEC 04/03/13 Colonoscopy - COLONOSCOP W/ OR W/O [facility] SPEC 04/08/15 Colonoscopy - EGD W/O OR W/BRUSH/WASH 04/03/13 EGD - FOOT LEFT OP SURGERY 06/2014 - HEART CATHETERIZATION 08/04/08 AND 10/2013 Normal Heart Cath --- [facility], Dr. Pena - LAPAROSCOPIC CHOLEYCYSTECTOMY 09/11 Cholecystectomy, lap - PAST SURGICAL HISTORY OF 06/2014 bunionectomy - REMOVAL OF HEEL SPUR Right 02/20 - SIGMOIDOSCOPY FLEX DIAG 09/12/2010 Sigmoidoscopy, flexible - VAGINAL HYSTERECTOMY 2008 Social History Tobacco Use - Smoking status: Never Smoker - Smokeless tobacco: Never Used Substance Use Topics - Alcohol use: No - Drug use: No FAMILY HISTORY Problem Relation Age of Onset [...] negative, BRCA1-2 negative, daughter of sister with reza harley The ROS, medical, surgical, family, and social history were reviewed by Masha San MD ALLERGIES Allergen Reactions - Augmentin [Amoxicil* Rash - Contrast Dye [Iodin* Swelling Current Outpatient Medications Medication Sig - loratadine (CLARITIN) 10 mg tablet Take 10 mg by mouth as needed. - gabapentin (NEURONTIN) 300 mg capsule Take 3 capsules shane y as instructed. - DULoxetine (CYMBALTA) 60 mg capsule Take 60 mg by mouth da daiana at bedtime. - magnesium gluconate (MAG-G) 27 mg (500 mg) tab Take by once daily. - Ascorbic Acid (VITAMIN C) chew Take 500 mg by mouth once d aily. - lovastatin (MEVACOR) 10 mg tablet Take 10 mg by mouth shane y at bedtime. - flaxseed 1,000 mg cap Take by mouth. - fluticasone (FLONASE) 50 mcg/actuation nasal spray - VITAMIN B COMPLEX ORAL Take by mouth once daily. - methotrexate 2.5 mg tablet Take 2.5 mg by mouth every Frid ay. - famotidine (PEPCID) 20 mg tablet Take 40 mg by mouth twice daily. - NITROSTAT 0.4 mg SL tablet - aspirin, enteric coated (ASPIRIN, ENTERIC COATED) 81 mg EC tablet Take 81 mg by mouth once daily. - MULTI-VITAMIN ORAL Take by mouth. - Cholecalciferol, Vitamin D3, (VITAMIN D) 1,000 unit Cap Ta ke 1 capsule by mouth once daily. - FOLIC ACID 1 mg ORAL tablet - etanercept(ENBREL 50 MG/ML (0.98 ML) SUB-Q SYRINGE) takes once weekly. No current facility-administered medications for this visit. OBJECTIVE BP 117/84 Pulse 91 Ht 162.6 cm (5' 4) Wt 60.8 kg (134 lb) LMP 04/11/2005 BMI 23.00 kg/m? BMI 23.00 kg/(m2) Physical Exam Constitutional: She is oriented to person, place, and time a nd well-developed, well-nourished, and in no distress. Neck: No thyromegaly present. Pulmonary/Chest: Right breast exhibits no inverted nipple, n o mass, no nipple discharge, no skin change and no tenderness. Left avila ast exhibits no inverted nipple, no mass, no nipple discharge, no skin ch britta (scar inside areola well healed) and no tenderness. Breasts are sy mmetrical. Lymphadenopathy: Head (right side): No submental, no submandibular and no ton sillar adenopathy present. Head (left side): No submental, no submandibular and no tons illar adenopathy present. She has no cervical adenopathy. She has no axillary adenopathy. Right: No supraclavicular adenopathy present. Left: No supraclavicular adenopathy present. Neurological: She is alert and oriented to person, place, an d time. She has intact cranial nerves. Plan ASSESSMENT/PLAN Inversion of nipple Ms. Guevara is a 64 year old female here for follow up. ? She is?status post left breast duct excisional biopsy on 05/2018 for new onset nipple inversion and negative imaging. Final patho logy showed duct ectasia. ? Today, there was nothing suspicious on her mammograms or cli nical exam. ? She can return to screening mammograms and see me as needed. ? She should continue monthly breast awareness and call with a nm concerns. Follow up: Return if symptoms worsen or fail to improve. Masha San MD 12/19/2019 11:03 AM hemogram on 2019-12 Erythrocyte distribution 14.2 11.7-14.4 % Normal 12-18 [facility] width (RBC) [Ratio] System (50669) Comment: Performed By: #### CBC1 #### [address] [address] Hematocrit (Bld) [Volume 41.9 34.1-44.9 % Normal 12-18 [facility] fraction] System (00 000) Comment: Performed By: #### CBC1 #### [address] [address] Hemoglobin (Bld) 13.8 11.2-15.7 g/dL Normal 12-19-2019 [facility] [Mass/Vol] System (0 0000) Comment: Performed By: #### CBC1 #### [facility] [address] [place], [place] [address] MCH (RBC) [Entitic mass] 31.4 25.6-32.2 pg Normal 12-18 [facility] (00 000) Comment: Performed By: #### CBC1 #### [facility] [address] [place], [place] [address] MCHC (RBC) [Mass/Vol] 32.9 31.6-34.8 % Normal 12-19-19 20 [facility] ([address]) Comment: Performed By: #### CBC1 #### [facility] [address] [place], [place] [address] MCV (RBC) [Entitic vol] 95.2 79.4-94.8 fl High 2019 [facility] (48513) Comment: Performed By: #### CBC1 #### [facility] [address] [place], [place] [address] Platelet mean volume (Bld) 10.0 9.4-12.3 fl Normal [facility] [Entitic vol] System ([address]881) Comment: Performed By: #### CBC1 #### [facility] [address] [place], [place] [address] Platelets (Bld) [#/Vol] 186 182-369 thou/cmm Normal 2019 [facility] (00 000) Comment: Performed By: #### CBC1 #### [facility] [address] [place], [place] [address] RBC (Bld) [#/Vol] 4.40 3.93-5.22 mil/cmm Normal 12-19-2019 [facility] System (00 000) Comment: Performed By: #### CBC1 #### [facility] [address] [place], [place] [address] RDW SD 48.8 36.4-46.3 fl High 12-19-2019 [facility] ([address]) Comment: Performed By: #### CBC1 #### [address] [address] WBC (Bld) [#/Vol] 4.86 3.98-10.04 thou/cmm Normal 12-19-2019 [facility] (00 000) Comment: Performed By: #### CBC1 #### [address] [address] cnov on 2019-12-19 CNOV Office Visit (AGGBRCR) Normal 12-18-2 020 [facility] CLAIRE GUEVARA ([id number]) 1955 F Medical Date Time Provider Department Center 12/19/19 11:00 AM MASHA SAN AGGBRCR ([id number]) During your visit today, we recorded the following informati on about you: Pulse Blood pressure Weight Height 91/minute 117/84 60.8 kg 1.626 m Rani Skinner RN 12/19/2019 10:56 AM Signed Denies any new palpable masses skin changes or p ain. Mammogram of 12/05/19 was negative PEDRO LUIS Jacobs MD 12/19/2019 11:06 AM Signed Masha San MD [facility] [address] [place] [id number] SUBJECTIVE Chief Complaint: Patient presents with: Yearly Exam . HPI Clairejohn Frenchmper is a 64 year old female here today for foll ow up. She is status post left breast duct excisional biopsy on 07/23/2017 for new onset nipple inversion and negative imaging. Final pathology showed duct ectasia. ? Today, she had bilateral mammograms done which I reviewed. T liseth showed scattered fibroglandular tis sarah, post op changes in the left breast and nothing suspicious, BIRADS 2. ? She denies palpating any breast masses or axillary adenopath y. No skin or nipple changes. No nipple discharge. Nursing Notes: Rani Skinner RN 12/19/2019 10:56 AM Signed Denies any new palpable masses skin changes or p ain. Mammogram of 12/05/19 was negative Rani Skinner RN AGE AT [age][place] 12 AGE AT FIRST 23 (2) FAMILY HISTORY OF BREAST CANCER Yes (neice) PREVIOUS BREAST BIOPSIES Yes (1) RACE ANTONY MODEL RISK 4 YEAR 1.8 ANTONY MODEL RISK LIFETIME 6.6 Review of Systems Constitutional: Negative for fever, malaise/fatigue and weig ht loss. Breast: See HPI PAST MEDICAL HISTORY Diagnosis Date - Abdominal pain - Abnormal breast exam - Arthritis - Bipolar 1 disorder (HCC) - Chest pain - Constipation - Coronary artery disease - Depression - Diabetes (HCC) - Diarrhea - Disorder of bone and cartilage, unspecified - Dizziness - Ear pain - Generalized anxiety disorder - Golfer's elbow, right - Headache - History of medical problems [...] time of gallbladder - APPENDECTOMY 2012 - BX OF BREAST; INCISIONAL Left 05/27/2018 mildly ectatic duct spaces - CHOLECYSTECTOMY 2012 - COLONOSCOP W/ OR W/O [facility] SPEC 08/13 Colonoscopy - COLONOSCOP W/ OR W/O [facility] SPEC 04/03/13 Colonoscopy - COLONOSCOP W/ OR W/O [facility] SPEC 04/08/15 Colonoscopy - EGD W/O OR W/BRUSH/WASH 04/03/13 EGD - FOOT LEFT OP SURGERY 06/2014 - HEART CATHETERIZATION 08/04/08 AND 10/2013 Normal Heart Cath --- [facility], Dr. Pena - LAPAROSCOPIC CHOLEYCYSTECTOMY 09/11 Cholecystectomy, lap - PAST SURGICAL HISTORY OF 06/2014 bunionectomy - REMOVAL OF HEEL SPUR Right 02/20 - SIGMOIDOSCOPY FLEX DIAG 09/12/2010 Sigmoidoscopy, flexible - VAGINAL HYSTERECTOMY 2008 Social History Tobacco Use - Smoking status: Never Smoker - Smokeless tobacco: Never Used Substance Use Topics - Alcohol use: No - Drug use: No FAMILY HISTORY Problem Relation Age of Onset [...] negative, BRCA1-2 negative, daughter of sister with c ancer The ROS, medical, surgical, family, and social history were reviewed by Masha San MD ALLERGIES Allergen Reactions - Augmentin [Amoxicil* Rash - Contrast Dye [Iodin* Swelling Current Outpatient Medications Medication Sig - loratadine (CLARITIN) 10 mg tablet Take 10 mg by mouth as needed. - gabapentin (NEURONTIN) 300 mg capsule Take 3 capsule s daily as instructed. - DULoxetine (CYMBALTA) 60 mg capsule Take 60 mg by mouth daily at bedtime. - magnesium gluconate (MAG-G) 27 mg (500 mg) tab Take by lizy once daily. - Ascorbic Acid (VITAMIN C) chew Take 500 mg by mouth once d aily. - lovastatin (MEVACOR) 10 mg tablet Take 10 mg by mouth shane y at bedtime. - flaxseed 1,000 mg cap Take by mouth. - fluticasone (FLONASE) 50 mcg/actuation nasal spray - VITAMIN B COMPLEX ORAL Take by mouth once daily. - methotrexate 2.5 mg tablet Take 2.5 mg by mouth every Frid ay. - famotidine (PEPCID) 20 mg tablet Take 40 mg by mouth twice daily. - NITROSTAT 0.4 mg SL tablet - aspirin, enteric coated (ASPIRIN, ENTE MAYCOL COATED) 81 mg EC tablet Take 81 mg by mouth once daily. - MULTI-VITAMIN ORAL Take by mouth. - Cholecalciferol, Vitamin D3, (VITAMIN D) 1,000 unit Cap Take 1 capsule by mouth once daily. - FOLIC ACID 1 mg ORAL tablet - etanercept(ENBREL 50 MG/ML (0.98 ML) SUB-Q SYRINGE) takes once weekly. No current facility-administered medications for this visit. OBJECTIVE BP 117/84 Pulse 91 Ht 162.6 cm (5' 4) Wt 60.8 kg (134 lb) LMP 04/11/2005 BMI 23.00 kg/m? BMI 23.00 kg/(m2) Physical Exam Constitutional: She is oriented to perso n, place, and time and well-developed, well-nourished, and in no distress. Neck: No thyromegaly present. Pulmonary/Chest: Right breast exhibits no invert ed nipple, no mass, no nipple discharge, no skin change and no tenderness. Lef t breast exhibits no inverted nipple, no mass, no nipple discharge, no skin ch britta (scar inside areola well healed) and no tenderness. Breasts are symmetrical. Lymphadenopathy: Head (right side): No submental, no submandibular and no ton sillar adenopathy present. Head (left side): No submental, no submandibular and no tons illar adenopathy present. She has no cervical adenopathy. She has no axillary adenopathy. Right: No supraclavicular adenopathy present. Left: No supraclavicular adenopathy present. Neurological: She is alert and oriented to person, place, and time. She has intact cranial nerves. Plan ASSESSMENT/PLAN Inversion of nipple Ms. Guevara is a 64 year old female here for follow up. ? She is?status post left breast duct excisional biopsy on 07/23/2017 for new onset nipple inversion and negative imaging. Final pathology showed duct ectasia. ? Today, there was nothing suspicious on her mammograms or cli nical exam. ? She can return to screening mammograms and see me as needed. ? She should continue monthly breast awareness and call with a nm concerns. Follow up: Return if symptoms worsen or fail to improve. Masha San MD 12/19/2019 11:03 AM Masha San MD 12/19/2019 11:06 AM Written Ms. Guevara is a 64 year old female here for follow up. ? She is?status post left breast duct excisional biopsy on 07/23/2017 for new onset nipple inversion and negative imaging. Final pathology showed duct ectasia. ? Today, there was nothing suspicious on her mammograms or cli nical exam. ? She can return to screening mammograms and see me as needed. ? She should continue monthly breast awareness and call with a ny concerns. Referring Provider: MIKO AVILA [[id number]] Allergies As of Date: 12/19/2019 Noted Allergy Reaction AUGMENTIN (AMOXICILLIN-POT CLAVUL*05/04/2017 2 - Rash CONTRAST DYE (IODINE) 11/14/2019 7 - Swelling Date Reviewed: 12/19/2019 Reviewed by: Masha San - Fully Assessed Reason for Visit: Yearly Exam [187] Primary Visit Diagnosis:Inversion of nipple [N64.59] Prescriptions as of 12/19/2019 Sig: LORATADINE 10 MG TABLET Take 10 mg by mouth as needed. GABAPENTIN 300 MG CAPSULE Take 3 capsules daily as inst* DULOXETINE 60 MG CAPSULE,JAIDEN* Take 60 mg by mouth daily at * MAGNESIUM GLUCONATE 27 MG MAG* Take by mouth once daily. ASCORBIC ACID (VITAMIN C) 500* Take 500 mg by mouth once tracy * LOVASTATIN 10 MG TABLET Take 10 mg by mouth daily at * FLAXSEED 1,000 MG CAPSULE Take by mouth. FLUTICASONE PROPIONATE 50 MCG* VITAMIN B COMPLEX ORAL Take by mouth once daily. METHOTREXATE SODIUM 2.5 MG TA* Take 2.5 mg by mouth every Fr * FAMOTIDINE 20 MG TABLET Take 40 mg by mouth twice tracy* NITROSTAT 0.4 MG SUBLINGUAL T* ASPIRIN 81 MG TABLET,DELAYED * Take 81 mg by mouth once shane * MULTI-VITAMIN ORAL Take by mouth. * CHOLECALCIFEROL (VITAMIN D3) * Take 1 capsule by mouth onc e * * FOLIC ACID 1 MG TABLET * ENBREL 50 MG/ML (1 ML) SUBCUT* takes once weekly. Problem List As Of Date 12/19/2019 Noted Resolved Rheumatoid arthritis (HCC) [M06.9] More... More... More... Abnormal Stress Test [R94.39] 02/12/2009 More... Hypomania [F30.8] 02/12/2009 More... PVC's 02/12/2009 More... Osteopenia [M85.80] 02/12/2009 Routine Gynecological Examination [Z01.419] 02/16/2009 Class: Chronic More... GERD (Gastroesophageal Reflux Disease) [K21.9] 02/16/2009 More... Impaired Fasting Glucose [R73.01] 02/16/2009 Neoplasm of uncertain behavior of skin [D48.5] 03/30/2010 Irritable bowel syndrome with diarrhea [K58.0] 03/24/2015 Hyperlipidemia [E78.5] 04/05/2015 ZAID (obstructive sleep apnea) [G47.33] 04/05/2015 Multiple thyroid nodules [E04.2] 04/05/2015 TIA (transient ischemic attack) [G45.9] 04/05/2015 Anxiety neurosis [F41.1] 04/05/2015 RBBB [I45.10] 04/05/2015 Micrognathia [M26.09] 04/05/2015 Family history of colon cancer [Z80.0] 04/08/2015 04/08/2015 Migraine aura without headache [G43.109] 07/19/2017 Left pontine stroke (HCC) [I63.50] 07/19/2017 Cerebrovascular small vessel disease [I67.9] 07/19/2017 Inversion of nipple [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 Breast swelling [N63.0] 07/05/2018 12/04/2018 More... RLS (restless legs syndrome) [G25.81] 02/24/2019 History of TIA (transient ischemic attack) [Z86*02/24/2019 Migraine without aura and without status migrai*02/24/2019 Visit Notes: >> Rani Skinner Fri Dec 19, 2019 10:55 AM Status: Milla d Denies any new palpable masses skin changes or pain. Mammogr am of 12/05/19 was negative Rani Skinner RN Medications Discontinued During This Encounter clopidogrel (PLAVIX) 75 mg tablet 12/19/2019 Class: Historical Med Route: ORAL Sig: Take 75 mg by mouth daily at bedtime. Disc: Discontinued by another Health Care Provider CPAP 1 De* 0 02/05/2018 12/19/2019 Class: Print RX Sig: Please decrease PAP set ting to 9/5 cmH2O and provide us with data download in 2 weeks. Patient not taking: Reported on 12/19/2019 Disc: Course of therapy completed Disposition: Return if symptoms worsen or fail to improve. Follow-up and Disposition History Recorded Questionnaire: AG BRCR ANTONY MODEL SCORING AGE AT MEN[place]HE -> 12 AGE AT FIRST -> 23 Cmt: 2 FAMILY HISTORY OF BREAST CANCER -> Yes Cmt: neice PREVIOUS BREAST BIOPSIES -> Yes Cmt: 1 RACE -> ANTONY MODEL RISK 5 YEAR -> 1.8 ANTONY MODEL RISK LIFETIME -> 6.6 Letter Text Encounter Status:Closed by MASHA SAN MD on 12/19/19 progress on 2019-12 PROGRESS HNO ID: [id number] Normal 12-15-2019 [place] Author: Yann Diallo Jr. Clinic Service: ? [place] Author Type: Physician ([id number]) Type: Progress Notes Filed: 12/15/2019 6:08 PM Note Text: ESTABLISHED PATIENT VISIT HISTORY OF PRESENT ILLNESS: Claire Guevara is a 64 year ol d female, with past medical history significant for and per last offic e visit note of 08/25/2019: 1. Obstructive sleep apnea (adult) (pediatric) - ICD9: 327.2 3, ICD10: G47.33 (primary diagnosis) Patient non-complaint with PAP therapy due to mask complaint s as above. Further exacerbated by underlying anxiety. With weight loss question if sleep apnea improved and perhaps no longer needing pap or co uld treat with positional therapy or other such as oral appliance. Thus aurora l get new PSG. If AHI >5 during that study will request for a split ni ght, starting at CPAP 5 cmH2O. ? ?2. History of TIA (transient ischemic attack) - ICD9: V12.5 4, ICD10: Z86.73 3. Epistaxis - ICD9: 784.7, ICD10: R04.0 4. Bruising - ICD9: 924.9, ICD10: T14.8XXA 5. Hyperlipidemia, unspecified hyperlipidemia type - ICD9: 2 72.4, ICD10: E78.5 Again, possible that event was complicated migraine. However , treating as TIA. Patient stopped ASA due to epistaxis and bruising. Expl ained risks of recurrent TIA being off antiplt but pt chooses not to res tart. Will check plt count and PT/INR. Cholesterol also poorly controll ed. Encouraged follow up with PCP. Goal BP <140/90. Glucose goal <140. ? 6. RLS (restless legs syndrome) - ICD9: 333.94, ICD10: G25.8 1 7. Poor sleep hygiene - ICD9: 307.49, ICD10: Z72.821 Patient with difficulties falling asleep as above. Possible numbness she reports is in fact RLS. Also poor sleep hygiene with irregul ar sleep schedule with daytime naps and watching tv in bed. ? Recommendations to improve sleep hygiene provided to patient . ? Will also increase gabapentin to 900mg QHS. SE and ADRs revi ewed with patient. Following above visit, patient then seen by Margarito Santos CNP for neuro follow up after hospitalization at [facility]. Notes reviewed . Per record: Since pt was last seen pt was admitted at [facility] f or ? TIA. [place] records reviewed. Pt had experienced numbness and ti ngling on the right side of her body along with her lips. She says her num bness and tingling are usually on the left side.. She continues with t ingling in the right foot, which is not new. No other neuro deficits no gabriela. Patient was started on Plavix plus her aspirin. She has noticed some slight bruising but no major nosebleeds since the start of Plavix. Records reviewed from [place]. MRI, MRA negative, LDL 104. Hemoglobi n A1c 5.7. She does follow with cardiology. . I will order an echo. Las t echo on record was from 2018. Patient agrees and will follow-up with Dr. Diallo in [place] in 6-8 weeks. States now having problems thinking of the correct words. St ates week ago Sunday states every other words could not get out. States co uple episodes today. States noticed since in the hospital. No specific jeevan e of day symptoms are present. Note at time of event was not on any antiplt therapy. Now on dual antiplt before trying single agent. Now having epistaxis and bleedin g. Now on Lovastatin. No issues. Reviewed history of events as above and confirmed prior docu mented history. She did have sleep study at [place] 2 weeks ago. I do no t have results of the study. She states they did not split as still did not meet AHI of 5. Will request records for review - already gone. RLS controlled on gabapentin. Takes a bit earlier than bedti me so that it is working before she gets into bed. Some mild tingling in t he R foot (chronic). Sleep overall good at this time. Some stressors w ith grandson living with them. Patient is having chronic jaw pain but not brought on by exe rtion. Occasional chest pain as well but then later states every ot her night. She does have reflux. Pain very central. On further discussi on this is chronic. All prior caths are clear. Stress test year ago whe n symptoms present and clear per patient. REVIEW OF SYSTEMS GENERAL:No weight loss, malaise or fevers. HEENT:Negative for frequent or significant headaches, No graciela nges in hearing or vision, no nose bleeds or other nasal problems NECK:Negative for lumps, goiter, pain and significant neck s welling RESPIRATORY: Negative for cough, wheezing or shortness of br eath. CARDIOVASCULAR: See HPI GASTROINTESTINAL: Negative for abdominal discomfort, blood i n stools or black stools or change in bowel habits GENITOURINARY: No history of dysuria, frequency or incontine nce MUSCULOSKELETAL: Negative for joint pain or swelling, back p ain or muscle pain. NEUROLOGIC:Negative for focal numbness or weakness, headache s and dizziness or syncope, vision changes, speech/languag changes - EXCEPT that as per HPI above. SKIN:Negative for lesions, rash, and itching. HEMATOLOGIC/LYMPHATIC/IMMUNOLOGIC:Negative for prolonged ble eding, bruising easily or swollen nodes. ENDOCRINE: Negative for cold or heat intolerance, polyuria, polydipsia and goiter. The remainder of the ROS was reviewed and is negative. LAB/IMAGING: Those performed since patient's last visit have been reviewed. WBC (thou/cmm) Date Value 08/25/2019 5.22 RBC (mil/cmm) Date Value 08/25/2019 4.41 HGB (g/dL) Date Value 08/25/2019 13.4 Hematocrit (%) Date Value 08/25/2019 41.8 MCV (fl) Date Value 08/25/2019 94.8 MCH (pg) Date Value 08/25/2019 30.4 MCHC (%) Date Value 08/25/2019 32.1 Platelet Count (thou/cmm) Date Value 08/25/2019 177 (L) MPV (fl) Date Value 08/25/2019 10.7 Glucose (mg/dL) Date Value 07/14/2011 111 (H) [...] (IU/mL) Date Value 11/28/2002 50 (A) MEDICATIONS: DULoxetine (CYMBALTA) 60 mg capsule Take 60 mg by mouth shane y at bedtime. clopidogrel (PLAVIX) 75 mg tablet Take 75 mg by mouth daily at bedtime. perflutren lipid microspheres (DEFINITY) 1.1 mg/mL injection (to be provided with echo procedure) Inject 1.3 mL intravenously as directed. Administration Instructions: If no IV access, insert saline lock prior to administering contrast. Discontinue saline lock post exam. I f patient has central line or IVAD, may access for administration accordin g to line specific nursing protocol. Once exam is complete, flush line and de-access per line specific nursing protocol.Diluted IV Bolus: Dilute 1.3 ml of Definity with 8.7 ml of preservative-free saline. magnesium gluconate (MAG-G) 27 mg (500 mg) tab Take by mouth once daily. Ascorbic Acid (VITAMIN C) chew Take 500 mg by mouth once tracy ly. gabapentin (NEURONTIN) 300 mg capsule Take 3 capsules daily as instructed. CPAP Please decrease bilevel setting to 8/4 cmH2O and provid e us download in 3 weeks. Thank you. lovastatin (MEVACOR) 10 mg tablet Take 10 mg by mouth daily at bedtime. flaxseed 1,000 mg cap Take by mouth. CPAP Please decrease PAP setting to 9/5 cmH2O and provide us with data download in 2 weeks. fluticasone (FLONASE) 50 mcg/actuation nasal spray VITAMIN B COMPLEX ORAL Take by mouth once daily. methotrexate 2.5 mg tablet Take 2.5 mg by mouth every Sunday . escitalopram oxalate (LEXAPRO) 10 mg tablet Take 10 mg by mo uth once daily. famotidine (PEPCID) 20 mg tablet Take 40 mg by mouth twice d aily. NITROSTAT 0.4 mg SL tablet aspirin, enteric coated (ASPIRIN, ENTERIC COATED) 81 mg EC t ablet Take 81 mg by mouth once daily. MULTI-VITAMIN ORAL Take by mouth. Cholecalciferol, Vitamin D3, (VITAMIN D) 1,000 unit Cap Take 1 capsule by mouth once daily. FOLIC ACID 1 mg ORAL tablet etanercept(ENBREL 50 MG/ML (0.98 ML) SUB-Q SYRINGE) takes on ce weekly. HISTORIES PAST MEDICAL HISTORY Diagnosis Date - Abdominal pain - Abnormal breast exam - Arthritis - Bipolar 1 disorder (HCC) - Chest pain - Constipation - Coronary artery disease - Depression - Diabetes (HCC) - Diarrhea - Disorder of bone and cartilage, unspecified - Dizziness - Ear pain - Generalized anxiety disorder - Golfer's elbow, right - Headache - History of medical problems [...] negative, BRCA1-2 negative, daughter of sister with reza harley SOCIAL HISTORY Social History Tobacco Use - Smoking status: Never Smoker - Smokeless tobacco: Never Used Substance Use Topics - Alcohol use: No - Drug use: No PHYSICAL EXAMINATION [facility] 04/11/2005 GENERAL EXAM: General appearance: NAD, pleasant. HEENT: NC/AT, nasal congestion absent, no oral lesions, memb ranes moist. NECK: No masses, supple. Lungs: CTA bilaterally. No wheezes present. CV: RRR nl S1, S2, no murmurs. No carotid bruits. Abd: Soft, nontender, nondistended. Bowel sounds present. Extr: No cyanosis, clubbing or edema. No evidence of fascicu lations. Extremity pulses palpable and normal. Skin: Cool to touch. No rash. NEUROLOGICAL EXAM: General: Awake, alert, oriented x3 (person,place,time), spee ch fluent, no dysarthria; comprehension, naming, repetition intact. MOCA 2 02/07 - missing 2 for delayed recall. CN: PERRL, fundi with no evidence of papilledema, EOMI and w ithout nystagmus, VFF to confrontation, facial sensation and streng th are normal and symmetric, hearing is intact to finger rub bilaterally, palate and tongue movements are intact and symmetric. SCM and trapezius strength normal. Motor: Normal tone, bulk and strength (5/5) bilaterally (thr oughout extremities x4). Coordination: FNF, CHON, HTS intact. No tremors. Sensation: Light touch, vibration, temperature intact throug hout. No evidence of neglect. Gait: Narrow based and stable with normal stride and arm swi ng. N Assessment and Plan: ASSESSMENT/PLAN: 1. Transient cerebral ischemia, unspecified type - ICD9: 435 .9, ICD10: G45.9 (primary diagnosis) Episode of possible TIA as above. Note she was not on ASA at time of event given prior complaints of epistaxis and bruising. Thus , uncertain patient needs dual antiplt therapy and again having epistaxi s and bruising. Will continue ASA 81mg daily but d/c Plavix. In ad dition will check CBC with plt. Encouraged pt to continue statin. BP goa l <140/90. Glucose goal <140. 2. 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 Records requested to verify. For now will hold on PAP therap y. 3. RLS (restless legs syndrome) - ICD9: 333.94, ICD10: G25.8 1 Patient feels controlled on current meds. Thus continue iris pentin 900mg QHS. 4. Cognitive impairment - ICD9: 294.9, ICD10: R41.89 MOCA unremarkable but patient concerned. Will refer to Dr. Denae Ruff for neurocognitive testing. No new meds for now. Yann Diallo MD I spent 25 minutes in the visit, with more than 50% of the total lutw-iu-uybg time of the visit in counseling / coordination of care. PDMP website checked and validated. All prescriptions have b een APPROPRIATELY filled. No suspicious activity was identified. 12/15/2019 by MD petey Carter on 2019-12-15 CNOV Office Visit ([facility]) Normal 12-15-[address] [place] [address] Alberto GUEVARACLAIRE Antoine ([id number]) 1955 [facility] Date Time Provider Department ([id number]) 12/15/19 4:40 PM YANN DIALLO JR During your visit today, we recorded the following informati on about you: Pulse Blood pressure Weight 78/minute 112/68 61.8 kg Yann Diallo MD 12/15/2019 6:08 PM Signed ESTABLISHED PATIENT VISIT HISTORY OF PRESENT ILLNESS: Claire M Paola is a 64 year ol d female, with past medical history significant for and per last office vis it note of 08/25/2019: 1. Obstructive sleep apnea (adult) (pediatric) - ICD9: 327.23, ICD10: G47.33 (primary diagnosis) Patient non-complaint with PAP therapy due to mask complaint s as above. Further exacerbated by underlying anxiety. With weight loss question if sleep apnea improved and perhaps n o longer needing pap or could treat with positional therapy or other such as oral appliance. Thus will get new P SG. If AHI >5 during that study will request for a split night, starting at CPAP 5 cmH2O. ? ?2. History of TIA (transient ischemic attack) - ICD9: V12.54, ICD10: Z86.73 3. Epistaxis - ICD9: 784.7, ICD10: R04.0 4. Bruising - ICD9: 924.9, ICD10: T14.8XXA 5. Hyperlipidemia, unspecified hyperlipi demia type - ICD9: 272.4, ICD10: E78.5 Again, possible that event was complicat ed migraine. However, treating as TIA. Patient stopped ASA due to epistaxis and bruising. Explained risks of recurrent TIA being off antiplt but pt chooses n ot to restart. Will check plt count and PT/INR. Cholesterol also poorly controlled. Encour aged follow up with PCP. Goal BP <140/90. Glucose goal <140. ? 6. RLS (restless legs syndrome) - ICD9: 333.94, ICD10: G25.8 1 7. Poor sleep hygiene - ICD9: 307.49, ICD10: Z72.821 Patient with difficulties falling asleep as above. Possible numbness she reports is in fact RLS. Also poor sleep hygiene with irregular sleep schedule with daytime naps and watching tv in bed. ? Recommendations to improve sleep hygiene provided to patient . ? Will also increase gabapentin to 900mg Q HS. SE and ADRs reviewed with patient. Following above visit, patient then seen by Margarito Santos CNP r neuro follow up after hospitalization at [facility]. Notes reviewed. P er record: Since pt was last seen pt was admitted at [facility] for ? TIA. [place] records reviewed. Pt had exp erienced numbness and tingling on the right side of her body along with her lips . She says her numbness and tingling are usually on the left side.. She continues with tingling in the right f oot, which is not new. No other neuro deficits noted. Patient was started on P lavix plus her aspirin. She has noticed some slight bruising but no major nosebleeds since the start of Plavix. Records reviewed from [place]. MRI, MRA negative, LDL 104. Hemoglobin A1c 5.7. She does follow with cardiology. . I will order an echo. Last echo on record was from 2018. Patient agrees and will follow-up with Dr. Diallo in [place] in 6-8 weeks. States now having problems thinking of the correct words. St ates week ago Sunday states every other words could not get out. States co uple episodes today. States noticed since in the hospital. No specific time of day symptoms are present. Note at time of event was not on any antiplt therapy. Now on dual antiplt before trying single agent. Now having epistaxis and bleedin g. Now on Lovastatin. No issues. Reviewed history of events as above and confirmed prior do cumented history. She did have sleep study at [place] 2 weeks ago. I do not have results of the study. She states they did not split as linda link did not meet AHI of 5. Will request records for review - already gone. RLS controlled on gabapentin. Takes a bit earlier than bedtime so that it is working before she gets into bed. Some mild ting ling in the R foot (chronic). Sleep overall good at this t monet. Some stressors with grandson living with them. Patient is having chronic jaw pain but not broug ht on by exertion. Occasional chest pain as well but then later states every other night. She does have reflux. Pain very central. On further discussion this is c hronic. All prior caths are clear. Stress test year ago when symptoms present and clear per patient. REVIEW OF SYSTEMS GENERAL:No weight loss, malaise or fevers. HEENT:Negative for frequent or significa nt headaches, No changes in hearing or vision, no nose bleeds or other nasal problems NECK:Negative for lumps, goiter, pain and significant neck s welling RESPIRATORY: Negative for cough, wheezing or shortness of br eath. CARDIOVASCULAR: See HPI GASTROINTESTINAL: Negative for abdominal discomf ort, blood in stools or black stools or change in bowel habits GENITOURINARY: No history of dysuria, frequency or incontine nce MUSCULOSKELETAL: Negative fo r joint pain or swelling, back pain or muscle pain. NEUROLOGIC:Negative for focal numbness o r weakness, headaches and dizziness or syncope, vision changes, spe ech/languag changes - EXCEPT that as per HPI above. SKIN:Negative for lesions, rash, and itching. HEMATOLOGIC/LYMPHATIC/IMMUNOLOGIC:Negative for prolonged b leeding, bruising easily or swollen nodes. ENDOCRINE: Negative for cold or heat intolerance, polyuria, polydipsia and goiter. The remainder of the ROS was reviewed and is negative. LAB/IMAGING: Those performed since patient's last visit vázquez ve been reviewed. WBC (thou/cmm) Date Value 08/25/2019 5.22 RBC (mil/cmm) Date Value 08/25/2019 4.41 HGB (g/dL) Date Value 08/25/2019 13.4 Hematocrit (%) Date Value 08/25/2019 41.8 MCV (fl) Date Value 08/25/2019 94.8 MCH (pg) Date Value 08/25/2019 30.4 MCHC (%) Date Value 08/25/2019 32.1 Platelet Count (thou/cmm) Date Value 08/25/2019 177 (L) MPV (fl) Date Value 08/25/2019 10.7 Glucose (mg/dL) Date Value 07/14/2011 111 (H) [...] (IU/mL) Date Value 11/28/2002 50 (A) MEDICATIONS: DULoxetine (CYMBALTA) 60 mg capsule Take 60 mg by mouth shane y at bedtime. clopidogrel (PLAVIX) 75 mg tablet Take 75 mg by mouth daily at bedtime. perflutren lipid microspheres (DEFINITY) 1.1 mg/mL inj ection (to be provided with echo procedure) Inject 1.3 mL intravenously as di rected. Administration Instructions: If no IV access, insert saline lock prior to a dministering contrast. Discontinue saline lock post exam. If patient vázquez s central line or IVAD, may access for administration according to line specif ic nursing protocol. Once exam is complete, flush line and de-access per line specific nursing protocol.Diluted IV Bolus: Dilute 1.3 ml of Defini ty with 8.7 ml of preservative-free saline. magnesium gluconate (MAG-G) 27 mg (500 mg) tab Take by mouth once daily. Ascorbic Acid (VITAMIN C) chew Take 500 mg by mouth once tracy ly. gabapentin (NEURONTIN) 300 mg capsule Take 3 capsules daily as instructed. CPAP Please decrease bilevel setting to 8/4 cmH2O and provide us download in 3 weeks. Thank you. lovastatin (MEVACOR) 10 mg tablet Take 10 mg by mouth daily at bedtime. flaxseed 1,000 mg cap Take by mouth. CPAP Please decrease PAP set ting to 9/5 cmH2O and provide us with data download in 2 weeks. fluticasone (FLONASE) 50 mcg/actuation nasal spray VITAMIN B COMPLEX ORAL Take by mouth once daily. methotrexate 2.5 mg tablet Take 2.5 mg by mouth every Sunday . escitalopram oxalate (LEXAPRO) 10 mg tablet Take 10 mg by mouth once daily. famotidine (PEPCID) 20 mg tablet Take 40 mg by mouth twice d aily. NITROSTAT 0.4 mg SL tablet aspirin, enteric coated (ASP IRIN, ENTERIC COATED) 81 mg EC tablet Take 81 mg by mouth once daily. MULTI-VITAMIN ORAL Take by mouth. Cholecalciferol, Vitamin D3, (VITAMIN D) 1,000 unit Cap Take 1 capsule by mouth once daily. FOLIC ACID 1 mg ORAL tablet etanercept(ENBREL 50 MG/ML (0.98 ML) SUB-Q SYRINGE) takes on ce weekly. HISTORIES PAST MEDICAL HISTORY Diagnosis Date - Abdominal pain - Abnormal breast exam - Arthritis - Bipolar 1 disorder (HCC) - Chest pain - Constipation - Coronary artery disease - Depression - Diabetes (HCC) - Diarrhea - Disorder of bone and cartilage, unspecified - Dizziness - Ear pain - Generalized anxiety disorder - Golfer's elbow, right - Headache - History of medical problems [...] negative, BRCA1-2 negative, daughter of sister with c ancer SOCIAL HISTORY Social History Tobacco Use - Smoking status: Never Smoker - Smokeless tobacco: Never Used Substance Use Topics - Alcohol use: No - Drug use: No PHYSICAL EXAMINATION [facility] 04/11/2005 GENERAL EXAM: General appearance: NAD, pleasant. HEENT: NC/AT, nasal congestion absent, no oral lesions, memb ranes moist. NECK: No masses, supple. Lungs: CTA bilaterally. No wheezes present. CV: RRR nl S1, S2, no murmurs. No carotid bruits. Abd: Soft, nontender, nondistended. Bowel sounds present. Extr: No cyanosis, clubbing or edema. No evidence of fascicu lations. Extremity pulses palpable and normal. Skin: Cool to touch. No rash. NEUROLOGICAL EXAM: General: Awake, alert, oriented x3 (person,place,time), spee ch fluent, no dysarthria; comprehension, naming, repetition intact. MOCA 28/30 - missing 2 for delayed recall. CN: PERRL, fundi with no evidence of papilledema , EOMI and without nystagmus, VFF to confrontation, facial sensation and stren gth are normal and symmetric, hearing is intact to finger rub bilaterally, palate an d tongue movements are intact and symmetric. SCM and trapezius strength normal. Motor: Normal tone, bulk and strength (5/5) bilaterally (throughout extremities x4). Coordination: FNF, CHON, HTS intact. No tremors. Sensation: Light touch, vibration, temperature i ntact throughout. No evidence of neglect. Gait: Narrow based and stable with normal stride and arm swi ng. N Assessment and Plan: ASSESSMENT/PLAN: 1. Transient cerebral ischemia, unspecified type - ICD 9: 435.9, ICD10: G45.9 (primary diagnosis) Episode of possible TIA as above. Note she was not on ASA at time of event given prior complaints of epistaxis and bruising. Thus, unce rtain patient needs dual antiplt therapy and again having epistaxis and br uising. Will continue ASA 81mg daily but d/c Plavix. In addition wi ll check CBC with plt. Encouraged pt to continue statin. BP goal <140/90. Glucose g oal <140. 2. Obstructive sleep apnea (adult) (pediatric) - ICD9: 327.23, ICD10: G47.33 Patient reporting that OSH sleep lab ind icated not sleep apnea on PSG. Records requested to verify. For now will hold on PAP therapy. 3. RLS (restless legs syndrome) - ICD9: 333.94, ICD10: G25.8 1 Patient feels controlled on current meds. Thus c ontinue gabapentin 900mg QHS. 4. Cognitive impairment - ICD9: 294.9, ICD10: R41.89 MOCA unremarkable but patient concerned. Will refer to Dr. Denae Ruff for neurocognitive testing. No new meds for now. Yann Diallo MD I spent 25 minutes in the visit, with more than 50% of the total gxaz-xh-uvrs time of the visit in counseling / coordination of care. PDMP website checked and validated. All prescrip tions have been APPROPRIATELY filled. No suspicious activity was ident ified. 12/15/2019 by Yann Diallo MD Referring Provider: YANN DIALLO JR [[id number]] Allergies As of Date: 12/15/2019 Noted Allergy Reaction AUGMENTIN (AMOXICILLIN-POT CLAVUL*05/04/2017 2 - Rash CONTRAST DYE (IODINE) 11/14/2019 7 - Swelling Date Reviewed: 12/15/2019 Reviewed by: Yann Diallo Jr. - Fully Assessed Reason for Visit: Established Patient [175] Cmt: [facility] Primary Visit Diagnosis:Transient cerebral ische rosanne, unspecified type [G45.9] Other Visit Diagnoses:Obstructive sleep apnea (adult) (pedia tric) [G47.33] RLS (restless legs syndrome) [G25.81] Cognitive impairment [R41.89] Order(s):CBC [SQCB] Order #: [id number] FUTURE CONSULT TO NEUROPSYCH [[id number]] Order #: [id number]: 1 FU TURE gabapentin (NEURONTIN) 300 mg capsuleTake 3 capsules daily a s instructed.Disp: 270 capsuleRfl: 0 Prescriptions as of 12/15/2019 Sig: GABAPENTIN 300 MG CAPSULE Take 3 capsules daily as inst* DULOXETINE 60 MG CAPSULE,JAIDEN* Take 60 mg by mouth daily at * CLOPIDOGREL 75 MG TABLET Take 75 mg by mouth daily at * MAGNESIUM GLUCONATE 27 MG MAG* Take by mouth once daily. ASCORBIC ACID (VITAMIN C) 500* Take 500 mg by mouth once tracy * LOVASTATIN 10 MG TABLET Take 10 mg by mouth daily at * FLAXSEED 1,000 MG CAPSULE Take by mouth. FLUTICASONE PROPIONATE 50 MCG* VITAMIN B COMPLEX ORAL Take by mouth once daily. METHOTREXATE SODIUM 2.5 MG TA* Take 2.5 mg by mouth every Fr * FAMOTIDINE 20 MG TABLET Take 40 mg by mouth twice tracy* NITROSTAT 0.4 MG SUBLINGUAL T* ASPIRIN 81 MG TABLET,DELAYED * Take 81 mg by mouth once shane * MULTI-VITAMIN ORAL Take by mouth. * CHOLECALCIFEROL (VITAMIN D3) * Take 1 capsule by mouth onc e * * FOLIC ACID 1 MG TABLET * ENBREL 50 MG/ML (1 ML) SUBCUT* takes once weekly. CPAP Please decrease PAP setting t* Patient not taking: Reported on 11/14/2019 Problem List As Of Date 12/15/2019 Noted Resolved Rheumatoid arthritis (HCC) [M06.9] More... More... More... Abnormal Stress Test [R94.39] 02/12/2009 More... Hypomania [F30.8] 02/12/2009 More... PVC's 02/12/2009 More... Osteopenia [M85.80] 02/12/2009 Routine Gynecological Examination [Z01.419] 02/16/2009 Class: Chronic More... GERD (Gastroesophageal Reflux Disease) [K21.9] 02/16/2009 More... Impaired Fasting Glucose [R73.01] 02/16/2009 Neoplasm of uncertain behavior of skin [D48.5] 03/30/2010 Irritable bowel syndrome with diarrhea [K58.0] 03/24/2015 Hyperlipidemia [E78.5] 04/05/2015 ZAID (obstructive sleep apnea) [G47.33] 04/05/2015 Multiple thyroid nodules [E04.2] 04/05/2015 TIA (transient ischemic attack) [G45.9] 04/05/2015 Anxiety neurosis [F41.1] 04/05/2015 RBBB [I45.10] 04/05/2015 Micrognathia [M26.09] 04/05/2015 Family history of colon cancer [Z80.0] 04/08/2015 04/08/2015 Migraine aura without headache [G43.109] 07/19/2017 Left pontine stroke (HCC) [I63.50] 07/19/2017 Cerebrovascular small vessel disease [I67.9] 07/19/2017 Inversion of nipple [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 Breast swelling [N63.0] 07/05/2018 12/04/2018 More... RLS (restless legs syndrome) [G25.81] 02/24/2019 History of TIA (transient ischemic attack) [Z86*02/24/2019 Migraine without aura and without status migrai*02/24/2019 Prescriptions ordered this encounter Disp Refills Start End GABAPENTIN 300 MG CAPSULE 270 * 0 12/15/2019 06/14/2020 Sig: Take 3 capsules daily as instructed. Medications Discontinued During This Encounter gabapentin (NEURONTIN) 300 mg capsule 270 * 0 08/25/20192019 Sig: Take 3 capsules daily as instructed. Disc: Reason for discontinue is not on file. perflutren lipid microspheres (DEFIN* 1.3 * 0 11/14/2019 020 Class: In Office Route: INTRAVENOUS Sig: Inject 1.3 mL intraveno usly as directed. Administration Instructions: If no IV access, insert saline lock prior to administering contrast. Discontinue saline lock post exam. If patient has central line or IVAD, may access for administration according to line specific nursing protocol. Once exam is complete, flush line and de-access per line specific nursing protocol. Diluted IV Bolus: Dilute 1.3 ml of Definity with 8.7 ml of preservative-free saline. Patient not taking: Reported on 12/15/2019 Disc: Reason for discontinue is not on file. CPAP 1 De* 0 03/18/2019 12/15/2019 Class: Print RX Sig: Please decrease bilevel setting to 8/4 cmH2O and provide us download in 3 weeks. Thank you. Patient not taking: Reported on 11/14/2019 Disc: Reason for discontinue is not on file. escitalopram oxalate (LEXAPRO) 10 mg* 12/15/2019 Class: Historical Med Route: ORAL Sig: Take 10 mg by mouth once daily. Disc: Reason for discontinue is not on file. Follow-up and Disposition History Recorded Letter Text Encounter Status:Closed by YANN DIALLO on 12/15/19 sgpt (alt) on 12-10 ALT [Catalytic activity/Vol] 21 8 - 35 U/L Normal 0 12-11-2019 [facility] ( [id number]) Comment: Performed By: #### [id number] ## ## [place] [id number] sgot (ast) on 12-10 AST/SGOT 26 13 - 39 U/L Normal 12-11-2019 [facility] (83243) Comment: Performed By: #### [id number] ## ## [address] [address] sedrate on SEDRATE 14 0 - 30 mm/hr Normal 12-11-2019 [facility] (15315) Comment: Performed By: #### [id number] ## ## [address] [address] creatinine on 12-10 Creatinine [Mass/Vol] 0.8 0.6 - 1.2 mg/dl Normal 12-11-19 [facility] ( 68972) Comment: Performed By: #### [id number] ## ## [facility],[address] [place] [address] cbc + diff on 12-10 Basophils (Bld) 0.00 0.00 - 0.10 x10EE3/UL Normal 12-11-2019 [facility] [#/Vol] [facility] ([address]80[facility] Comment: Performed By: #### [id number] ## ## [facility],[address] [place] [address] Basophils/100 WBC (Bld) 0.7 0.0 - 2.0 % Normal 2019 [facility] ( 39877) Comment: Performed By: #### [id number] ## ## [facility],[address] [place] [address] CBC + DIFF Normal 12-11-2019 [facility] (72153) Comment: Result Comment: CBC-COMPLETE BLOOD COUNT Performed By: #### [id number] ## ## [facility],[address] [place] [address] Eosinophils (Bld) 0.20 0.00 - 0.50 x10EE3/UL Normal 12-11-2019 [facility] [#/Vol] [facility] (99995) Comment: Performed By: #### [id number] ## ## [facility],[address] [place] [address] Eosinophils/100 WBC (Bld) 5.2 0.0 - 7.0 % Normal [facility] ( 03453) Comment: Performed By: #### [id number] ## ## [facility],[address] [place] [address] Erythrocyte distribution 14.4 12.0 - 15.6 % Normal [facility] (RBC) [Ratio] [facility] (53720) Comment: Performed By: #### [id number] ## ## [facility],[address] [place] [address] Hematocrit (Bld) [Volume 40.8 34.0 - 46.0 % Normal [facility] ( 02005) Comment: Performed By: #### [id number] ## ## [facility],[address] [place] [address] Hemoglobin (Bld) 14.0 12.0 - 16.0 g/dl Normal 12-11-2019 [facility] [Mass/Vol] [facility] (20057) Comment: Performed By: #### [id number] ## ## [facility],[address] [place] [address] Lymphocytes (Bld) 1.60 0.80 - 2.80 x10EE3/UL Normal 12-11-2019 [facility] [#/Vol] [facility] (80471) Comment: Performed By: #### [id number] ## ## [facility],[address] [place] [address] 16615 Lymphocytes/100 WBC (Bld) 36.5 20.0 - 45.0 % Normal [facility] ( 23925) Comment: Performed By: #### [id number] ## ## [facility],[address] [place] [address] MANUAL DIFF N/A Normal 12-11-2019 [facility] (38681) Comment: Performed By: #### [id number] ## ## [facility],[address] [place] [address] MCH (RBC) [Entitic mass] 32 27 - 33 pg Normal 12-10 [facility] ( 98538) Comment: Performed By: #### [id number] ## ## [facility],[address] [place] [address] MCHC (RBC) [Mass/Vol] 34 32 - 36 X10 3 Normal 12-11-19 20 [facility] ( 86018) Comment: Performed By: #### [id number] ## ## [facility],[address] [place] [address] 36472 MCV (RBC) [Entitic vol] 94 80 - 99 fl Normal 2019 [facility] ( 13834) Comment: Performed By: #### [id number] ## ## [facility],[address] [place] [address]1166 Monocytes (Bld) 0.40 0.20 - 1.00 x10EE3/UL Normal 12-11-2019 [facility] [#/Vol] [facility] (52246) Comment: Performed By: #### [id number] ## ## [facility],[address] [place] [address] MONOS % 9.8 0.0 - 10.0 % Normal 12-11-2019 [facility] (58054) Comment: Performed By: #### [id number] ## ## [facility],[address] [place] [address]5770 Morphology Kasi (Bld) [Interp] N/A Normal 12-11-2019 [facility] ( [id number]) Comment: Performed By: #### [id number] ## ## [facility],[address] [place] [address] 12195 Neutrophils (Bld) 2.10 1.50 - 7.10 x10EE3/UL Normal 12-11-2019 [facility] [#/Vol] [facility] ([id number][facility] Comment: Performed By: #### [id number] ## ## [facility],[address] [place] [address] 80687 Neutrophils/100 WBC (Bld) 47.8 46.0 - 76.0 % Normal [facility] ( [id number]) Comment: Performed By: #### [id number] ## ## [facility],[address] [place] [address] 40817 Platelet mean volume 7.9 6.6 - 10.5 fl Normal 12-11-19 20 [facility] (Bld) [Entitic vol] Hospital ([id number]) Comment: Result Comment: AUTOMATED DI FFERENTIAL Performed By: #### [id number] ## ## [facility],[address] [place] [address] 34137 Platelets (Bld) 235 150 - 450 x10EE3/UL Normal 12-11-2019 [facility] [#/Vol] [facility] ([id number]) Comment: Performed By: #### [id number] ## ## [facility],[address] [place] [address] 85830 RBC (Bld) [#/Vol] 4.32 4.10 - 5.30 x 10EE6/UL Normal 0 [facility] ([id number]) Comment: Performed By: #### [id number] ## ## [facility],[address] [place] [address] 91746 WBC (Bld) [#/Vol] 4.4 4.5 - 10.8 x 10EE3/UL Low 12-11-2019 [facility] ( 63084) Comment: Performed By: #### [id number] ## ## [facility],[address] [place] [address] 86046 c-reactive protein on 2019-12-11 CRP [Mass/Vol] <0.10 0.00 - 1.00 mg/L Normal 12-11-2019 [facility] ( 73165) Comment: Performed By: #### [id number] ## ## [facility],[address] [place] [address] 92015 bun on 2019-12-11 Urea nitrogen [Mass/Vol] 12 6 - 20 mg/dl Normal 12-10 [facility] ( [id number]) Comment: Performed By: #### [id number] ## ## [facility],[address] [place] [address] 41746 albumin plasma [ccl] on 2019-12-11 Albumin [Mass/Vol] 4.2 3.4 - 4.8 g/dL Normal 12-11-2019 [facility] ( [id number]) Comment: Performed By: #### [id number] ## ## [facility],[address] [place] [address]233 [facility] screening on 28-11-25 [facility] Final Report Normal 12-05-2019 [facility] DATE OF EXAM: Dec 05 2019 1:57PM [facility] AAW [id number] - [facility] / ([id number]) PROCEDURE REASON: screening Physician Interpretation #[id number] - [facility] BILATERAL DIGITAL SCREENING MAMMOGRAM WITH CAD: 12/05/2019 HISTORY: Screening / Screening Mammogram-patient reports no symptoms. RESULT: TECHNIQUE: The study was acquired using full field digital t echnology and interpreted from soft copy. Current study was also evaluated with a Computer Aided Detec tion (CAD). Comparison is made to exams dated: 12/04/2018 mammogram - [facility] and 03/02/2018 mammogram - [facility]. There are scattered fibroglandular elements in both breasts. The left breast has post-operative findings. No significant masses, calcifications, or other findings are seen in either breast. There has been no significant interval change. IMPRESSION: BENIGN FINDING There is no mammographic evidence of malignancy. A 1 year sc reening mammogram is recommended. Melissa Stoddard M.D. km/cecelia:12/05/2019 14:04:06 copy to: Dr. Miko Avila M.D., Dr. Miko Avila, ph: [phone], fax: [phone] [employer] Technician(s): Zahra Farris, Personal Property Appraiser [facility] letter sent: Normal over 40 Mammogram BI-RADS: 2 Benign finding Multiple national specialty organizations have released emanuel st cancer screening guidelines for women at average risk for developin g breast cancer - guidelines that are based on both evidence and opin ion, yet differ on when to start and how often to screen for breast c ancer. With representation from Breast Imaging, Internal Medicine, Women 's Health, Family Medicine, and Medical/Surgical Oncology, the [facility] has carefully reviewed the data and reached the following consen lang: 1) All women should engage in shared decision-making with eir providers to decide when to start and how often to screen; 2) All women should have the opportunity to start screening mammography at age 40; 3) For women ages 45-55, we recommend annual screening mammo grams; 4) For women ages 55 and over, we support both the transitio n from an annual to a biennial interval if this aligns more with patie nt's values and preferences, or continuation with annual screening; 5) All women should discuss with their providers when to sto p screening mammograms. Registrar Nurses' Registry: Cecelia Transcribe Date/Time: Dec 05 2019 1:44P Dictated by : MELISSA STODDARD MD This examination was interpreted and the report reviewed and electronically signed by: MELISSA STODDARD MD on Dec 05 2019 2:04PM EST cnco on 2019-12-05 CNCO HNO ID: [id number] Normal 12-05-2019 [facility] Author: [facility] Coordinator [facility] ([id number]) Service: ? Author Type: Physician Type: Letter Filed: 12/08/2019 11:34 PM Note Text: Personal Property Appraiser [facility] [address] [place] [address] December 05, 2019 PID: [id number] Claire Guevara [address] [address] Dear Ms. Guevara, We are pleased to inform you that the results of your recent breast imaging exam on 12/05/2019 are normal. Early detection of cancer is very important. We also underst and recommendations regarding breast cancer screening are contro versial. Please discuss with your primary care provider which strateg y is best for you and whether a mammogram is right for you. Your imaging studies and report will be kept on file at [facility] as part of your permanent medical record and are available f or your continuing care. Thank you for allowing us to help in meeting your health car e needs. Sincerely, Dr. Stoddard Interpreting Radiologist Personal Property Appraiser [facility] (Normal over 40) cnpn on 2019-11-25 CNPN Telephone (NEURBA) Normal 11-25-2019 [facility] CLAIRE GUEVARA ([id number]) 1955 F Medical Date Time Provider Department Center 11/25/19 YANN DIALLO JR ([id number]) During your visit today, we recorded the following informati on about you: PATRICIA Lafleur 11/25/2019 10:[address] order for split night study to match insurance auth to be faxed as patient is scheduled tonight. PATRICIA Lafleur Allergies As of Date: 11/25/2019 Noted Allergy Reaction AUGMENTIN (AMOXICILLIN-POT CLAVUL*05/04/2017 2 - Rash CONTRAST DYE (IODINE) 11/14/2019 7 - Swelling Date Reviewed: 11/14/2019 Reviewed by: Sanjiv ([facility]) Josue - Fully Assessed Reason for Visit: Orders [681] Primary Visit Diagnosis:Obstructive sleep apnea (adult ) (pediatric) [G47.33] Order(s):PAP TITRATION PSG (CPAP, BIPAP, ASV) [[id number]] Or pat #: [id number] FUTURE Prescriptions as of 11/25/2019 Sig: DULOXETINE 60 MG CAPSULE,JAIDEN* Take 60 mg by mouth daily at * CLOPIDOGREL 75 MG TABLET Take 75 mg by mouth daily at * PERFLUTREN LIPID MICROSPHERES* Inject 1.3 mL intravenously a * MAGNESIUM GLUCONATE 27 MG MAG* Take by mouth once daily. ASCORBIC ACID (VITAMIN C) 500* Take 500 mg by mouth once tracy * GABAPENTIN 300 MG CAPSULE Take 3 capsules daily as inst* CPAP Please decrease bilevel setti* Patient not taking: Reported on 11/14/2019 LOVASTATIN 10 MG TABLET Take 10 mg by mouth daily at * FLAXSEED 1,000 MG CAPSULE Take by mouth. CPAP Please decrease PAP setting t* Patient not taking: Reported on 11/14/2019 FLUTICASONE PROPIONATE 50 MCG* VITAMIN B COMPLEX ORAL Take by mouth once daily. METHOTREXATE SODIUM 2.5 MG TA* Take 2.5 mg by mouth every Fr * ESCITALOPRAM 10 MG TABLET Take 10 mg by mouth once shane* FAMOTIDINE 20 MG TABLET Take 40 mg by mouth twice tracy* NITROSTAT 0.4 MG SUBLINGUAL T* ASPIRIN 81 MG TABLET,DELAYED * Take 81 mg by mouth once shane * MULTI-VITAMIN ORAL Take by mouth. * CHOLECALCIFEROL (VITAMIN D3) * Take 1 capsule by mouth onc e * * FOLIC ACID 1 MG TABLET * ENBREL 50 MG/ML (1 ML) SUBCUT* takes once weekly. Problem List As Of Date 11/25/2019 Noted Resolved Rheumatoid arthritis (HCC) [M06.9] More... More... More... Abnormal Stress Test [R94.39] 02/12/2009 More... Hypomania [F30.8] 02/12/2009 More... PVC's 02/12/2009 More... Osteopenia [M85.80] 02/12/2009 Routine Gynecological Examination [Z01.419] 02/16/2009 Class: Chronic More... GERD (Gastroesophageal Reflux Disease) [K21.9] 02/16/2009 More... Impaired Fasting Glucose [R73.01] 02/16/2009 Neoplasm of uncertain behavior of skin [D48.5] 03/30/2010 Irritable bowel syndrome with diarrhea [K58.0] 03/24/2015 Hyperlipidemia [E78.5] 04/05/2015 ZAID (obstructive sleep apnea) [G47.33] 04/05/2015 Multiple thyroid nodules [E04.2] 04/05/2015 TIA (transient ischemic attack) [G45.9] 04/05/2015 Anxiety neurosis [F41.1] 04/05/2015 RBBB [I45.10] 04/05/2015 Micrognathia [M26.09] 04/05/2015 Family history of colon cancer [Z80.0] 04/08/2015 04/08/2015 Migraine aura without headache [G43.109] 07/19/2017 Left pontine stroke (HCC) [I63.50] 07/19/2017 Cerebrovascular small vessel disease [I67.9] 07/19/2017 Inversion of nipple [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 Breast swelling [N63.0] 07/05/2018 12/04/2018 More... RLS (restless legs syndrome) [G25.81] 02/24/2019 History of TIA (transient ischemic attack) [Z86*02/24/2019 Migraine without aura and without status migrai*02/24/2019 Encounter Status:Closed by YANN DIALLO on 11/25/19 CNPN Telephone (NEURGN) Normal 11-25-2019 [place] CLAIRE Ross ([id number]) 1955 F Medical Date Time Provider Department Center 11/25/19 QUINTIN SANTOS (TERRAZZO MECHANIC HELPER, HAND RUG BRAIDER) NEURGN ([id number]) During your visit today, we recorded the following informati on about you: Quintin Santos APRN.HAND RUG BRAIDER, HAND RUG BRAIDER 11/25/2019 10:21 AM Signed Please let pt know that her ECHO is norm al and to continue with follow up with Dr. Yoel Casey MA 11/25/2019 10:38 AM Signed 11/25/2019 10:37:34 Gave patient results per Quintin Santos CNP. Patient john balized understanding. Danna Casey MA Allergies As of Date: 11/25/2019 Noted Allergy Reaction AUGMENTIN (AMOXICILLIN-POT CLAVUL*05/04/2017 2 - Rash CONTRAST DYE (IODINE) 11/14/2019 7 - Swelling Date Reviewed: 11/14/2019 Reviewed by: Sanjiv ([facility]) Josue - Fully Assessed Reason for Visit: Follow Up Tests Results [770] Prescriptions as of 11/25/2019 Sig: DULOXETINE 60 MG CAPSULE,JAIDEN* Take 60 mg by mouth daily at * CLOPIDOGREL 75 MG TABLET Take 75 mg by mouth daily at * PERFLUTREN LIPID MICROSPHERES* Inject 1.3 mL intravenously a * MAGNESIUM GLUCONATE 27 MG MAG* Take by mouth once daily. ASCORBIC ACID (VITAMIN C) 500* Take 500 mg by mouth once tracy * GABAPENTIN 300 MG CAPSULE Take 3 capsules daily as inst* CPAP Please decrease bilevel setti* Patient not taking: Reported on 11/14/2019 LOVASTATIN 10 MG TABLET Take 10 mg by mouth daily at * FLAXSEED 1,000 MG CAPSULE Take by mouth. CPAP Please decrease PAP setting t* Patient not taking: Reported on 11/14/2019 FLUTICASONE PROPIONATE 50 MCG* VITAMIN B COMPLEX ORAL Take by mouth once daily. METHOTREXATE SODIUM 2.5 MG TA* Take 2.5 mg by mouth every Fr * ESCITALOPRAM 10 MG TABLET Take 10 mg by mouth once shane* FAMOTIDINE 20 MG TABLET Take 40 mg by mouth twice tracy* NITROSTAT 0.4 MG SUBLINGUAL T* ASPIRIN 81 MG TABLET,DELAYED * Take 81 mg by mouth once shane * MULTI-VITAMIN ORAL Take by mouth. * CHOLECALCIFEROL (VITAMIN D3) * Take 1 capsule by mouth onc e * * FOLIC ACID 1 MG TABLET * ENBREL 50 MG/ML (1 ML) SUBCUT* takes once weekly. Problem List As Of Date 11/25/2019 Noted Resolved Rheumatoid arthritis (HCC) [M06.9] More... More... More... Abnormal Stress Test [R94.39] 02/12/2009 More... Hypomania [F30.8] 02/12/2009 More... PVC's 02/12/2009 More... Osteopenia [M85.80] 02/12/2009 Routine Gynecological Examination [Z01.419] 02/16/2009 Class: Chronic More... GERD (Gastroesophageal Reflux Disease) [K21.9] 02/16/2009 More... Impaired Fasting Glucose [R73.01] 02/16/2009 Neoplasm of uncertain behavior of skin [D48.5] 03/30/2010 Irritable bowel syndrome with diarrhea [K58.0] 03/24/2015 Hyperlipidemia [E78.5] 04/05/2015 ZAID (obstructive sleep apnea) [G47.33] 04/05/2015 Multiple thyroid nodules [E04.2] 04/05/2015 TIA (transient ischemic attack) [G45.9] 04/05/2015 Anxiety neurosis [F41.1] 04/05/2015 RBBB [I45.10] 04/05/2015 Micrognathia [M26.09] 04/05/2015 Family history of colon cancer [Z80.0] 04/08/2015 04/08/2015 Migraine aura without headache [G43.109] 07/19/2017 Left pontine stroke (HCC) [I63.50] 07/19/2017 Cerebrovascular small vessel disease [I67.9] 07/19/2017 Inversion of nipple [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 Breast swelling [N63.0] 07/05/2018 12/04/2018 More... RLS (restless legs syndrome) [G25.81] 02/24/2019 History of TIA (transient ischemic attack) [Z86*02/24/2019 Migraine without aura and without status migrai*02/24/2019 Encounter Status:Closed by QUINTIN SANTOS CNP on 11/25/19 progress on 2019-11 PROGRESS HNO ID: [id number] Normal 11-14-2019 [facility] Author: Quintin (Direct Marketing Specialist Primer Charger) TORIN Santos [facility] Service: ? ([id number]) Author Type: Nurse Practitioner Type: Progress Notes Filed: 11/14/2019 3:02 PM Note Text: Neurology Follow Up Note Date: November 14, 2019 Patient Name: Claire Guevara HPI: This is MsDavid Guevara a 64 year old female who p resents to [facility] for follow up of TIA. Pt was last se en by Dr. Diallo 08/28 for ZAID, RLS, and migraines. Since pt was last seen pt was admitted at [facility] f or ? TIA. [place] records reviewed. Pt had experienced numbness and ti ngling on the right side of her body along with her lips. She says her num bness and tingling are usually on the left side.. She continues with t ingling in the right foot, which is not new. No other neuro deficits no gabriela. Patient was started on Plavix plus her aspirin. She has noticed some slight bruising but no major nosebleeds since the start of Plavix. Records reviewed from [place]. MRI, MRA negative, LDL 104. Hemoglobi n A1c 5.7. She does follow with cardiology. . I will order an echo. Las t echo on record was from 2017. Patient agrees and will follow-up with Dr. Diallo in [place] in 6-8 weeks. Medications: DULoxetine (CYMBALTA) 60 mg capsule Take 60 mg by mouth shane y at bedtime. clopidogrel (PLAVIX) 75 mg tablet Take 75 mg by mouth daily at bedtime. magnesium gluconate (MAG-G) 27 mg (500 mg) tab Take by mouth once daily. Ascorbic Acid (VITAMIN C) chew Take 500 mg by mouth once tracy ly. gabapentin (NEURONTIN) 300 mg capsule Take 3 capsules daily as instructed. lovastatin (MEVACOR) 10 mg tablet Take 10 mg by mouth daily at bedtime. flaxseed 1,000 mg cap Take by mouth. fluticasone (FLONASE) 50 mcg/actuation nasal spray VITAMIN B COMPLEX ORAL Take by mouth once daily. methotrexate 2.5 mg tablet Take 2.5 mg by mouth every Sunday . famotidine (PEPCID) 20 mg tablet Take 40 mg by mouth twice d aily. NITROSTAT 0.4 mg SL tablet aspirin, enteric coated (ASPIRIN, ENTERIC COATED) 81 mg EC t ablet Take 81 mg by mouth once daily. MULTI-VITAMIN ORAL Take by mouth. Cholecalciferol, Vitamin D3, (VITAMIN D) 1,000 unit Cap Take 1 capsule by mouth once daily. FOLIC ACID 1 mg ORAL tablet etanercept(ENBREL 50 MG/ML (0.98 ML) SUB-Q SYRINGE) takes on ce weekly. perflutren lipid microspheres (DEFINITY) 1.1 mg/mL injection (to be provided with echo procedure) Inject 1.3 mL intravenously as directed. Administration Instructions: If no IV access, insert saline lock prior to administering contrast. Discontinue saline lock post exam. I f patient has central line or IVAD, may access for administration accordin g to line specific nursing protocol. Once exam is complete, flush line and de-access per line specific nursing protocol.Diluted IV Bolus: Dilute 1.3 ml of Definity with 8.7 ml of preservative-free saline. CPAP Please decrease bilevel setting to 8/4 cmH2O and provid e us download in 3 weeks. Thank you. CPAP Please decrease PAP setting to 9/5 cmH2O and provide us with data download in 2 weeks. escitalopram oxalate (LEXAPRO) 10 mg tablet Take 10 mg by [facility] once daily. PMH/PSH/FH/ALLERGIES: Reviewed from last visit and unchanged . ROS: Reviewed from prior visit and unchanged. Physical Exam: Vitals: BP 122/66 (BP Site: Left Arm, BP Position: Sitting, BP Cuff Size: Regular Adult) Pulse 93 Ht 5' 4 (1.626 m) Wt 138 lb (62.6 kg) LMP 04/11/2005 SpO2 97% BMI 23.69 kg/m? Gen: well appearing, in no acute distress CV: 2+ radial pulses Alert, oriented to person, place, time. Speech fluent with n o dysarthria or aphasia. Attention and concentration intact. Recent and r emote memory intact. Fund of knowledge is normal. Pupils equally round and reactive to light. Extraocular musc les intact. Visual estrella full, face symmetric. Normal muscles bulk and tone Muscle strength symmetric, 5/5 bilateral upper and lower ext remities. Sensation intact to light touch throughout Coordination intact Gait is normal Studies: Most recent labs Most recent imaging ASSESSMENT/PLAN: 1. Transient cerebral ischemia, unspecified type - ICD9: 435 .9, ICD10: G45.9 2. Numbness and tingling - ICD9: 782.0, ICD10: R20.0, R20.2 (primary diagnosis) 3. Palpitation - ICD9: 785.1, ICD10: R00.2 4. H/O: stroke - ICD9: V12.54, ICD10: Z86.73 - ECHO Patient with TIA. Symptoms of right-sided numbness, tingling along with the lips. Patient usually has tingling on the left side, so this was new. Patient continues with right foot tingling, but this is base line. No further neuro symptoms. Patient to continue with Plavix and aspirin and statin. We'll get echo and she is to follow-up with Dr. Katarzyna Santos, TERRAZZO MECHANIC HELPER.[facility], Department of Neurology 30 minutes were completed [id number] CNPN Telephone (NEURGN) Normal 11-14-2019 [facility] CLAIRE GUEVARA ([id number]) 1955 F Medical Date Time Provider Department Center 11/14/19 QUINTIN SANTOS (TERRAZZO MECHANIC HELPER, HAND RUG BRAIDER) ROYCE ([id number]) During your visit today, we recorded the following informati on about you: [place] 11/14/2019 3:05 PM Signed Patient was scheduled for an echo on 11/24/19 at 1100 am at [facility]. Patient was given the date/time/location Allergies As of Date: 11/14/2019 Noted Allergy Reaction AUGMENTIN (AMOXICILLIN-POT CLAVUL*05/04/2017 2 - Rash CONTRAST DYE (IODINE) 11/14/2019 7 - Swelling Date Reviewed: 11/14/2019 [facility] Josue - Fully Assessed Reason for Visit: Procedure [88] Cmt: Echo Prescriptions as of 11/14/2019 Sig: DULOXETINE 60 MG CAPSULE,JAIDEN* Take 60 mg by mouth daily at * CLOPIDOGREL 75 MG TABLET Take 75 mg by mouth daily at * PERFLUTREN LIPID MICROSPHERES* Inject 1.3 mL intravenously a * MAGNESIUM GLUCONATE 27 MG MAG* Take by mouth once daily. ASCORBIC ACID (VITAMIN C) 500* Take 500 mg by mouth once tracy * GABAPENTIN 300 MG CAPSULE Take 3 capsules daily as inst* CPAP Please decrease bilevel setti* Patient not taking: Reported on 11/14/2019 LOVASTATIN 10 MG TABLET Take 10 mg by mouth daily at * FLAXSEED 1,000 MG CAPSULE Take by mouth. CPAP Please decrease PAP setting t* Patient not taking: Reported on 11/14/2019 FLUTICASONE PROPIONATE 50 MCG* VITAMIN B COMPLEX ORAL Take by mouth once daily. METHOTREXATE SODIUM 2.5 MG TA* Take 2.5 mg by mouth every Fr * ESCITALOPRAM 10 MG TABLET Take 10 mg by mouth once shane* FAMOTIDINE 20 MG TABLET Take 40 mg by mouth twice tracy* NITROSTAT 0.4 MG SUBLINGUAL T* ASPIRIN 81 MG TABLET,DELAYED * Take 81 mg by mouth once shane * MULTI-VITAMIN ORAL Take by mouth. * CHOLECALCIFEROL (VITAMIN D3) * Take 1 capsule by mouth onc e * * FOLIC ACID 1 MG TABLET * ENBREL 50 MG/ML (1 ML) SUBCUT* takes once weekly. Problem List As Of Date 11/14/2019 Noted Resolved Rheumatoid arthritis (HCC) [M06.9] More... More... More... Abnormal Stress Test [R94.39] 02/12/2009 More... Hypomania [F30.8] 02/12/2009 More... PVC's 02/12/2009 More... Osteopenia [M85.80] 02/12/2009 Routine Gynecological Examination [Z01.419] 02/16/2009 Class: Chronic More... GERD (Gastroesophageal Reflux Disease) [K21.9] 02/16/2009 More... Impaired Fasting Glucose [R73.01] 02/16/2009 Neoplasm of uncertain behavior of skin [D48.5] 03/30/2010 Irritable bowel syndrome with diarrhea [K58.0] 03/24/2015 Hyperlipidemia [E78.5] 04/05/2015 ZAID (obstructive sleep apnea) [G47.33] 04/05/2015 Multiple thyroid nodules [E04.2] 04/05/2015 TIA (transient ischemic attack) [G45.9] 04/05/2015 Anxiety neurosis [F41.1] 04/05/2015 RBBB [I45.10] 04/05/2015 Micrognathia [M26.09] 04/05/2015 Family history of colon cancer [Z80.0] 04/08/2015 04/08/2015 Migraine aura without headache [G43.109] 07/19/2017 Left pontine stroke (HCC) [I63.50] 07/19/2017 Cerebrovascular small vessel disease [I67.9] 07/19/2017 Inversion of nipple [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 Breast swelling [N63.0] 07/05/2018 12/04/2018 More... RLS (restless legs syndrome) [G25.81] 02/24/2019 History of TIA (transient ischemic attack) [Z86*02/24/2019 Migraine without aura and without status migrai*02/24/2019 Encounter Status:Closed by EL PARHAM on 11/14/19 cnov on 2019-11-14 CNOV Office Visit (NEURGN) Normal 11-14-19 [facility] CLAIRE GUEVARA ([id number]) 1955 F Medical Date Time Provider Department Center 11/14/19 1:00 PM QUINTIN SANTOS (TERRAZZO MECHANIC HELPER, HAND RUG BRAIDER) NEURGN ([id number]) During your visit today, we recorded the following informati on about you: Pulse Blood pressure Weight Height 93/minute 122/66 62.6 kg 1.626 m Quintin Santos APRN.HAND RUG BRAIDER, HAND RUG BRAIDER 11/14/2019 3:02 PM Signed Neurology Follow Up Note Date: November 14, 2019 Patient Name: Claire Guevara HPI: This is Ms. Claire Guevara a 64 year old female who presents to [facility] for follow up of TIA. Pt was last seen by Dr. Diallo 08/28 for ZAID, RLS, and migraines. Since pt was last seen pt was admitted at [facility] for ? TIA. [place] records reviewed. Pt had exp erienced numbness and tingling on the right side of her body along with her lips . She says her numbness and tingling are usually on the left side.. She continues with tingling in the right f oot, which is not new. No other neuro deficits noted. Patient was started on P lavix plus her aspirin. She has noticed some slight bruising but no major nosebleeds since the start of Plavix. Records reviewed from [place]. MRI, MRA negative, LDL 104. Hemoglobin A1c 5.7. She does follow with cardiology. . I will order an echo. Last echo on record was from 2017. Patient agrees and will follow-up with Dr. Diallo in [place] in 6-8 weeks. Medications: DULoxetine (CYMBALTA) 60 mg capsule Take 60 mg by mouth shane y at bedtime. clopidogrel (PLAVIX) 75 mg tablet Take 75 mg by mouth daily at bedtime. magnesium gluconate (MAG-G) 27 mg (500 mg) tab Take by mouth once daily. Ascorbic Acid (VITAMIN C) chew Take 500 mg by mouth once tracy ly. gabapentin (NEURONTIN) 300 mg capsule Take 3 capsules daily as instructed. lovastatin (MEVACOR) 10 mg tablet Take 10 mg by mouth daily at bedtime. flaxseed 1,000 mg cap Take by mouth. fluticasone (FLONASE) 50 mcg/actuation nasal spray VITAMIN B COMPLEX ORAL Take by mouth once daily. methotrexate 2.5 mg tablet Take 2.5 mg by mouth every Sunday . famotidine (PEPCID) 20 mg tablet Take 40 mg by mouth twice d aily. NITROSTAT 0.4 mg SL tablet aspirin, enteric coated (ASP IRIN, ENTERIC COATED) 81 mg EC tablet Take 81 mg by mouth once daily. MULTI-VITAMIN ORAL Take by mouth. Cholecalciferol, Vitamin D3, (VITAMIN D) 1,000 unit Cap Take 1 capsule by mouth once daily. FOLIC ACID 1 mg ORAL tablet etanercept(ENBREL 50 MG/ML (0.98 ML) SUB-Q SYRINGE) takes on ce weekly. perflutren lipid microspheres (DEFINITY) 1.1 mg/mL inj ection (to be provided with echo procedure) Inject 1.3 mL intravenously as di rected. Administration Instructions: If no IV access, insert saline lock prior to a dministering contrast. Discontinue saline lock post exam. If patient vázquez s central line or IVAD, may access for administration according to line specif ic nursing protocol. Once exam is complete, flush line and de-access per line specific nursing protocol.Diluted IV Bolus: Dilute 1.3 ml of Defini ty with 8.7 ml of preservative-free saline. CPAP Please decrease bilevel setting to 8/4 cmH2O and provide us download in 3 weeks. Thank you. CPAP Please decrease PAP set ting to 9/5 cmH2O and provide us with data download in 2 weeks. escitalopram oxalate (LEXAPRO) 10 mg tablet Take 10 mg by mouth once daily. PMH/PSH/FH/ALLERGIES: Reviewed from last visit and unchanged . ROS: Reviewed from prior visit and unchanged. Physical Exam: Vitals: BP 122/66 (BP Site: Left Arm, BP Position: Sitting, BP Cuff Size: Regular Adult) Pulse 93 Ht 5' 4 (1.626 m) Wt 138 lb (62.6 kg) LMP 04/11/2005 SpO2 97% BMI 23.69 kg/m? Gen: well appearing, in no acute distress CV: 2+ radial pulses Alert, oriented to person, place, time. Speech fluent with no dysarthria or aphasia. Attention and concentration intact. Rec ent and remote memory intact. Fund of knowledge is normal. Pupils equally round and reactive to lig ht. Extraocular muscles intact. Visual estrella full, face symmetric. Normal muscles bulk and tone Muscle strength symmetric, 5/5 bilateral upper and lower ext remities. Sensation intact to light touch throughout Coordination intact Gait is normal Studies: Most recent labs Most recent imaging ASSESSMENT/PLAN: 1. Transient cerebral ischemia, unspecified type - ICD 9: 435.9, ICD10: G45.9 2. Numbness and tingling - I CD9: 782.0, ICD10: R20.0, R20.2 (primary diagnosis) 3. Palpitation - ICD9: 785.1, ICD10: R00.2 4. H/O: stroke - ICD9: V12.54, ICD10: Z86.73 - ECHO Patient with TIA. Symptoms of right-sided numbness, tingli ng along with the lips. Patient usually has tingling on the left s jeromy, so this was new. Patient continues with right foot tingling, but this is baseline. No further neuro symptoms. Patient to continue with Plavix and aspirin and statin. We'll get echo and she is to follow-up with Dr. Diallo. Quintin Santos APRN.TORIN [facility], Department of Neurology 30 minutes were completed [id number] Quintin Santos APRN.TORIN HARKINS 11/14/2019 1:19 PM Addendum Get Echo Continue with Plavix, asa and lovastatin Follow up with Dr. Diallo in [place] Referring Provider: YANN DIALLO JR [[id number]] Allergies As of Date: 11/14/2019 Noted Allergy Reaction AUGMENTIN (AMOXICILLIN-POT CLAVUL*05/04/2017 2 - Rash CONTRAST DYE (IODINE) 11/14/2019 7 - Swelling Date Reviewed: 11/14/2019 Reviewed by: Sanjiv Ceballos - Fully Assessed Reason for Visit: Established Patient [175] Cmt: ER follow up- [facility] Primary Visit Diagnosis:Numbness and tingling [R20.0, R20.2] Other Visit Diagnoses:Transient cerebral ischemia, unspeci fied type [G45.9] Palpitation [R00.2] H/O: stroke [Z86.73] Order(s):ECHO [213299] Order #: [id number]: 1 FUTURE perflutren lipid microspheres (DEFINITY) 1.1 mg/mL injection (to be provided with echo procedure)Inject 1.3 mL intravenously as directed. Administration Instructions: If no IV access, insert saline lock prior to administering contrast. Discontinue saline lock post exam . If patient has central line or IVAD, may access for administrat ion according to line specific nursing protocol. Once exam is co mplete, flush line and de-access per line specific nursing protocol. Diluted IV Bolus: Dilute 1.3 ml of Definity with 8.7 ml of preservative-free saline.Disp: 1.3 mLRfl: 0 Prescriptions as of 11/14/2019 Sig: DULOXETINE 60 MG CAPSULE,JAIDEN* Take 60 mg by mouth daily at * CLOPIDOGREL 75 MG TABLET Take 75 mg by mouth daily at * MAGNESIUM GLUCONATE 27 MG MAG* Take by mouth once daily. ASCORBIC ACID (VITAMIN C) 500* Take 500 mg by mouth once tracy * GABAPENTIN 300 MG CAPSULE Take 3 capsules daily as inst* LOVASTATIN 10 MG TABLET Take 10 mg by mouth daily at * FLAXSEED 1,000 MG CAPSULE Take by mouth. FLUTICASONE PROPIONATE 50 MCG* VITAMIN B COMPLEX ORAL Take by mouth once daily. METHOTREXATE SODIUM 2.5 MG TA* Take 2.5 mg by mouth every Fr * FAMOTIDINE 20 MG TABLET Take 40 mg by mouth twice tracy* NITROSTAT 0.4 MG SUBLINGUAL T* ASPIRIN 81 MG TABLET,DELAYED * Take 81 mg by mouth once shane * MULTI-VITAMIN ORAL Take by mouth. * CHOLECALCIFEROL (VITAMIN D3) * Take 1 capsule by mouth onc e * * FOLIC ACID 1 MG TABLET * ENBREL 50 MG/ML (1 ML) SUBCUT* takes once weekly. PERFLUTREN LIPID MICROSPHERES* Inject 1.3 mL intravenously a * CPAP Please decrease bilevel setti* Patient not taking: Reported on 11/14/2019 CPAP Please decrease PAP setting t* Patient not taking: Reported on 11/14/2019 ESCITALOPRAM 10 MG TABLET Take 10 mg by mouth once shane* Problem List As Of Date 11/14/2019 Noted Resolved Rheumatoid arthritis (HCC) [M06.9] More... More... More... Abnormal Stress Test [R94.39] 02/12/2009 More... Hypomania [F30.8] 02/12/2009 More... PVC's 02/12/2009 More... Osteopenia [M85.80] 02/12/2009 Routine Gynecological Examination [Z01.419] 02/16/2009 Class: Chronic More... GERD (Gastroesophageal Reflux Disease) [K21.9] 02/16/2009 More... Impaired Fasting Glucose [R73.01] 02/16/2009 Neoplasm of uncertain behavior of skin [D48.5] 03/30/2010 Irritable bowel syndrome with diarrhea [K58.0] 03/24/2015 Hyperlipidemia [E78.5] 04/05/2015 ZAID (obstructive sleep apnea) [G47.33] 04/05/2015 Multiple thyroid nodules [E04.2] 04/05/2015 TIA (transient ischemic attack) [G45.9] 04/05/2015 Anxiety neurosis [F41.1] 04/05/2015 RBBB [I45.10] 04/05/2015 Micrognathia [M26.09] 04/05/2015 Family history of colon cancer [Z80.0] 04/08/2015 04/08/2015 Migraine aura without headache [G43.109] 07/19/2017 Left pontine stroke (HCC) [I63.50] 07/19/2017 Cerebrovascular small vessel disease [I67.9] 07/19/2017 Inversion of nipple [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 Breast swelling [N63.0] 07/05/2018 12/04/2018 More... RLS (restless legs syndrome) [G25.81] 02/24/2019 History of TIA (transient ischemic attack) [Z86*02/24/2019 Migraine without aura and without status migrai*02/24/2019 Other instructions from your clinician: Get Echo Continue with Plavix, asa and lovastatin Follow up with Dr. Diallo in [place] Prescriptions ordered this encounter Disp Refills Start End PERFLUTREN LIPID MICROSPHERES 1.1 MG* 1.3 * 0 11/14/201910/2020 Class: In Office Route: INTRAVENOUS Sig: Inject 1.3 mL intravenously as directed. Ad ministration Instructions: If no IV access, insert saline lock prior to administering cont rast. Discontinue saline lock post exam. If patient has central li ne or IVAD, may access for administration according to line specific chet sing protocol. Once exam is complete, flush line and de-access pe r line specific nursing protocol. Diluted IV Bolus: Dilute 1.3 ml of Definity with 8.7 ml of preservative-free saline. Disposition: Return 6-8 weeks with Yoel in [place]. Follow-up and Disposition History Recorded Encounter Status:Closed by QUINTIN SANTOS CNP on 11/14/19 ot-mra neck without contrast import on 2019-11-06 OT-MRA Neck Images were obtained outside of [facility] Normal 11-06-2019 [facility] without Contrast [id number] [place] ([id number]) IMPORT mr-mra head only without contrast import on 2019-11-06 MR-MRA Head ONLY Images were obtained outside of [facility] Normal 11-06-2019 [id number] mr-brain without contrast import on 2019-11-06 MR-Brain without Images were obtained outside of [facility] Normal 11-06-2019 [facility] Contrast IMPORT [id number] [place] ([id number]) ct-brain/head without contrast import on 2019-11-05 CT-Brain/Head Images were obtained outside of [facility] Normal 11-05-2019 [place] without Contrast [id number] [facility] IMPORT [place] ([id number]) cr-chest 1 view import on 2019-11-05 CR-Chest 1 View Images were obtained outside of [facility] Normal 11-05-2019 [facility] IMPORT [id number] [place] ([id number]) cnpn on 2019-11-05 CNPN Telephone (NEURBA) Normal 11-05-2019 [place] CLAIRE GUEVARA ([id number]) 1955 F Medical Date Time Provider Department Center 11/05/19 YANN DIALLO JR ([id number]) During your visit today, we recorded the following informati on about you: PATRICIA Lafleur 11/05/2019 11:36 AM Signed Patient calls to complain of symptoms of numbness/tingeling in her right foot, right hand, and lips. She states it is radiating up he r leg and down her arm lasting about 30 minutes then subsided. She is currently taking Gabapentin 300 mg 3 caps daily. PATRICIA Lafleur MD 11/05/2019 12:41 PM Signed Given symptoms focal and effecting only right side, recommend she be evaluated in ER for possible TIA vs stroke. MD Sarah Beth Carter MA 11/05/2019 2:55 PM Signed Spoke with patient and informed her of Denae Diallo's message. Patient verbalized understanding but stated she's not sure if she's going to go to ER today. She was at [facility] when I spoke with he r. She considered going after appt but was not sure. I reiterated that Dr. Diallo thought s he should be evaluated and that it was in her best interest to go to rule out TIA Vs. Stroke. Patient again verbalized understanding. Sarah Beth Bedolla MA Allergies As of Date: 11/05/2019 Noted Allergy Reaction AUGMENTIN (AMOXICILLIN-POT CLAVUL*05/04/2017 2 - Rash Date Reviewed: 08/25/2019 Reviewed by: Yann Diallo Jr. - Fully Assessed Reason for Visit: Symptoms [3640] Prescriptions as of 11/05/2019 Sig: MAGNESIUM GLUCONATE 27 MG MAG* Take by mouth once daily. ASCORBIC ACID (VITAMIN C) 500* Take 500 mg by mouth once tracy * GABAPENTIN 300 MG CAPSULE Take 3 capsules daily as inst* CPAP Please decrease bilevel setti* LOVASTATIN 10 MG TABLET Take 10 mg by mouth daily at * FLAXSEED 1,000 MG CAPSULE Take by mouth. CPAP Please decrease PAP setting t* Patient not taking: Reported on 02/24/2019 FLUTICASONE PROPIONATE 50 MCG* VITAMIN B COMPLEX ORAL Take by mouth once daily. METHOTREXATE SODIUM 2.5 MG TA* Take 2.5 mg by mouth every Fr * ESCITALOPRAM 10 MG TABLET Take 10 mg by mouth once shane* FAMOTIDINE 20 MG TABLET Take 40 mg by mouth twice tracy* NITROSTAT 0.4 MG SUBLINGUAL T* ASPIRIN 81 MG TABLET,DELAYED * Take 81 mg by mouth once shane * MULTI-VITAMIN ORAL Take by mouth. * CHOLECALCIFEROL (VITAMIN D3) * Take 1 capsule by mouth onc e * * FOLIC ACID 1 MG TABLET * ENBREL 50 MG/ML (1 ML) SUBCUT* takes once weekly. Problem List As Of Date 11/05/2019 Noted Resolved Rheumatoid arthritis (HCC) [M06.9] More... More... More... Abnormal Stress Test [R94.39] 02/12/2009 More... Hypomania [F30.8] 02/12/2009 More... PVC's 02/12/2009 More... Osteopenia [M85.80] 02/12/2009 Routine Gynecological Examination [Z01.419] 02/16/2009 Class: Chronic More... GERD (Gastroesophageal Reflux Disease) [K21.9] 02/16/2009 More... Impaired Fasting Glucose [R73.01] 02/16/2009 Neoplasm of uncertain behavior of skin [D48.5] 03/30/2010 Irritable bowel syndrome with diarrhea [K58.0] 03/24/2015 Hyperlipidemia [E78.5] 04/05/2015 ZAID (obstructive sleep apnea) [G47.33] 04/05/2015 Multiple thyroid nodules [E04.2] 04/05/2015 TIA (transient ischemic attack) [G45.9] 04/05/2015 Anxiety neurosis [F41.1] 04/05/2015 RBBB [I45.10] 04/05/2015 Micrognathia [M26.09] 04/05/2015 Family history of colon cancer [Z80.0] 04/08/2015 04/08/2015 Migraine aura without headache [G43.109] 07/19/2017 Left pontine stroke (HCC) [I63.50] 07/19/2017 Cerebrovascular small vessel disease [I67.9] 07/19/2017 Inversion of nipple [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 Breast swelling [N63.0] 07/05/2018 12/04/2018 More... RLS (restless legs syndrome) [G25.81] 02/24/2019 History of TIA (transient ischemic attack) [Z86*02/24/2019 Migraine without aura and without status migrai*02/24/2019 Encounter Status:Closed by SARAH BETH BEDOLLA on 11/05/19 [facility]pn [facility]) Normal 10-13-2019 [place] CLAIRE Ross ([id number]) 1955 F Medical Date Time Provider Department Center 10/13/19 YANN DIALLO JR ([id number]) During your visit today, we recorded the following informati on about you: PATRICIA Lafleur 10/13/2019 9:56 AM Signed Need to discuss with patient if she is willing to have sleep study elsewhere as they are not scheduling them in [place]. Left message to call back. PATRICIA Lafleur NCMA 10/13/2019 1:52 PM Signed Patient notified and given info for scheduling. PATRICIA Lafleur Allergies As of Date: 10/13/2019 Noted Allergy Reaction AUGMENTIN (AMOXICILLIN-POT CLAVUL*05/04/2017 2 - Rash Date Reviewed: 08/25/2019 Reviewed by: Yann Diallo Jr. - Fully Assessed Reason for Visit: sleep [Other] Prescriptions as of 10/13/2019 Sig: MAGNESIUM GLUCONATE 27 MG MAG* Take by mouth once daily. ASCORBIC ACID (VITAMIN C) 500* Take 500 mg by mouth once tracy * GABAPENTIN 300 MG CAPSULE Take 3 capsules daily as inst* CPAP Please decrease bilevel setti* LOVASTATIN 10 MG TABLET Take 10 mg by mouth daily at * FLAXSEED 1,000 MG CAPSULE Take by mouth. CPAP Please decrease PAP setting t* Patient not taking: Reported on 02/24/2019 FLUTICASONE PROPIONATE 50 MCG* VITAMIN B COMPLEX ORAL Take by mouth once daily. METHOTREXATE SODIUM 2.5 MG TA* Take 2.5 mg by mouth every Fr * ESCITALOPRAM 10 MG TABLET Take 10 mg by mouth once shane* FAMOTIDINE 20 MG TABLET Take 40 mg by mouth twice tracy* NITROSTAT 0.4 MG SUBLINGUAL T* ASPIRIN 81 MG TABLET,DELAYED * Take 81 mg by mouth once shane * MULTI-VITAMIN ORAL Take by mouth. * CHOLECALCIFEROL (VITAMIN D3) * Take 1 capsule by mouth onc e * * FOLIC ACID 1 MG TABLET * ENBREL 50 MG/ML (1 ML) SUBCUT* takes once weekly. Problem List As Of Date 10/13/2019 Noted Resolved Rheumatoid arthritis (HCC) [M06.9] More... More... More... Abnormal Stress Test [R94.39] 02/12/2009 More... Hypomania [F30.8] 02/12/2009 More... PVC's 02/12/2009 More... Osteopenia [M85.80] 02/12/2009 Routine Gynecological Examination [Z01.419] 02/16/2009 Class: Chronic More... GERD (Gastroesophageal Reflux Disease) [K21.9] 02/16/2009 More... Impaired Fasting Glucose [R73.01] 02/16/2009 Neoplasm of uncertain behavior of skin [D48.5] 03/30/2010 Irritable bowel syndrome with diarrhea [K58.0] 03/24/2015 Hyperlipidemia [E78.5] 04/05/2015 ZAID (obstructive sleep apnea) [G47.33] 04/05/2015 Multiple thyroid nodules [E04.2] 04/05/2015 TIA (transient ischemic attack) [G45.9] 04/05/2015 Anxiety neurosis [F41.1] 04/05/2015 RBBB [I45.10] 04/05/2015 Micrognathia [M26.09] 04/05/2015 Family history of colon cancer [Z80.0] 04/08/2015 04/08/2015 Migraine aura without headache [G43.109] 07/19/2017 Left pontine stroke (HCC) [I63.50] 07/19/2017 Cerebrovascular small vessel disease [I67.9] 07/19/2017 Inversion of nipple [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 Breast swelling [N63.0] 07/05/2018 12/04/2018 More... RLS (restless legs syndrome) [G25.81] 02/24/2019 History of TIA (transient ischemic attack) [Z86*02/24/2019 Migraine without aura and without status migrai*02/24/2019 Encounter Status:Closed by RUTH MOMIN on 10/13/19 sgpt (alt) on 10-08 ALT [Catalytic activity/Vol] 18 8 - 35 U/L Normal 0 10-09-2019 [facility] ( [id number]) Comment: Performed By: #### [id number] ## ## [place] [address] sgot (ast) on 10-08 AST/SGOT 22 13 - 39 U/L Normal 10-09-2019 [facility] ([id number]) Comment: Performed By: #### [id number] ## ## [place] [id number] sedrate on SEDRATE 16 0 - 30 mm/hr Normal 10-09-2019 [facility] (32393) Comment: Performed By: #### [id number] ## ## [place] [address] creatinine on 10-08 Creatinine [Mass/Vol] 0.8 0.6 - 1.2 mg/dl Normal 10-09-19 [facility] ( 29782) Comment: Performed By: #### [id number] ## ## [facility],[address] [place] [address]69 cbc + diff on 10-08 Basophils (Bld) 0.00 0.00 - 0.10 x10EE3/UL Normal 10-09-2019 Abelino nikolay [place] [#/Vol] [facility] (03526) Comment: Performed By: #### [id number] ## ## [facility],[address] [place] [address] 45124 Basophils/100 WBC (Bld) 0.4 0.0 - 2.0 % Normal 2019 [facility] ( 93533) Comment: Performed By: #### [id number] ## ## [facility],[address] [place] [address] 60758 CBC + DIFF Normal 10-09-2019 [facility] (27610) Comment: Result Comment: CBC-COMPLETE BLOOD COUNT Performed By: #### [id number] ## ## [facility],[address] [place] [address] 03999 Eosinophils (Bld) 0.30 0.00 - 0.50 x10EE3/UL Normal 10-09-2019 [facility] [#/Vol] [facility] (05487) Comment: Performed By: #### [id number] ## ## [facility],[address] [place] [address] 48652 Eosinophils/100 WBC (Bld) 6.3 0.0 - 7.0 % Normal 09-11 [facility] ( [id number]) Comment: Performed By: #### [id number] ## ## [facility],[address] [place] [address] 43433 Erythrocyte distribution 15.8 12.0 - 15.6 % High [facility] width (RBC) [Ratio] Hospital (44487) Comment: Performed By: #### [id number] ## ## [facility],[address] [place] [address] 45760 Hematocrit (Bld) [Volume 42.0 34.0 - 46.0 % Normal [facility] ( 59647) Comment: Performed By: #### [id number] ## ## [facility],[address] [place] [address] 51543 Hemoglobin (Bld) 14.1 12.0 - 16.0 g/dl Normal 10-09-2019 [facility] [Mass/Vol] [facility] (76327) Comment: Performed By: #### [id number] ## ## [facility],[address] [place] [address] 40592 Lymphocytes (Bld) 1.60 0.80 - 2.80 x10EE3/UL Normal 10-09-2019 [facility] [#/Vol] [facility] (09414) Comment: Performed By: #### [id number] ## ## [facility],[address] [place] [address] 09584 Lymphocytes/100 WBC (Bld) 31.6 20.0 - 45.0 % Normal [facility] ( 18018) Comment: Performed By: #### [id number] ## ## [address] [address] MANUAL DIFF N/A Normal 10-09-2019 [facility] (78910) Comment: Performed By: #### [id number] ## ## [address] [address] MCH (RBC) [Entitic mass] 31 27 - 33 pg Normal 10-08 [facility] ( 75281) Comment: Performed By: #### [id number] ## ## [address] [address] MCHC (RBC) [Mass/Vol] 34 32 - 36 X10 3 Normal 10-09-19 20 [facility] ( 60169) Comment: Performed By: #### [id number] ## ## [facility],[address] [place] [address] 66532 MCV (RBC) [Entitic vol] 93 80 - 99 fl Normal 2019 [facility] ( 45491) Comment: Performed By: #### [id number] ## ## [facility],[address] [place] [address] 54149 Monocytes (Bld) 0.60 0.20 - 1.00 x10EE3/UL Normal 10-09-2019 [facility] [#/Vol] [facility] (98040) Comment: Performed By: #### [id number] ## ## [facility],[address] [place] [address] 39864 MONOS % 11.9 0.0 - 10.0 % High 10-09-2019 [facility] (49236) Comment: Performed By: #### [id number] ## ## [facility],[address] [place] [address] 59768 Morphology Kasi (Bld) [Interp] N/A Normal 10-09-2019 [facility] ( 07539) Comment: Performed By: #### [id number] ## ## [facility],[address] [place] [address] 98541 Neutrophils (Bld) 2.50 1.50 - 7.10 x10EE3/UL Normal 10-09-2019 [facility] [#/Vol] [facility] (04553) Comment: Performed By: #### [id number] ## ## [facility],[address] [place] [address] 41281 Neutrophils/100 WBC (Bld) 49.8 46.0 - 76.0 % Normal [facility] ( 11088) Comment: Performed By: #### [id number] ## ## [facility],[address] [place] [address] 15646 Platelet mean volume 7.7 6.6 - 10.5 fl Normal 10-09-19 20 [facility] (Bld) [Entitic vol] [facility] (47878) Comment: Result Comment: AUTOMATED DI FFERENTIAL Performed By: #### [id number] ## ## [facility],[address] [place] [address] 40764 Platelets (Bld) 191 150 - 450 x10EE3/UL Normal 10-09-2019 [facility] [#/Vol[facility] (90152) Comment: Performed By: #### [id number] ## ## [facility],[address] [place] [address] 24904 RBC (Bld) [#/Vol] 4.52 4.10 - 5.30 x 10EE6/UL Normal 0 [facility] (37110) Comment: Performed By: #### [id number] ## ## [facility],[address] [place] [address] 58182 WBC (Bld) [#/Vol] 4.9 4.5 - 10.8 x 10EE3/UL Normal 10-09-2019 [facility] ( 01366) Comment: Performed By: #### [id number] ## ## [facility],[address] [place] [address]56 c-reactive protein on 2019-10-09 CRP [Mass/Vol] <0.10 0.00 - 1.00 mg/L Normal 10-09-2019 [facility] ( 86283) Comment: Performed By: #### [id number] ## ## [facility],[address] [place] [address] 46634 bun on 2019-10-09 Urea nitrogen [Mass/Vol] 12 6 - 20 mg/dl Normal 10-08 [facility] ( 59863) Comment: Performed By: #### [id number] ## ## [facility],[address] [place] [address] 06239 albumin plasma on Albumin [Mass/Vol] 4.2 3.4 - 4.8 g/dL Normal 10-09-2019 [facility] ( 38787) Comment: Performed By: #### [id number] ## ## [facility],[address] [place] [address] on 2019-08-28 CNPN Telephone (NEURGN) Normal 08-28-2019 [facility] CLAIRE GUEVARA ([id number]) 1955 F Medical Date Time Provider Department Center 08/28/19 YANN DIALLO JR ([id number]) During your visit today, we recorded the following informati on about you: El Prasad 08/28/2019 3:44 PM Signed Pre-certification of PSG [facility] [employer] Spoke with: Miss Cuevas Pre-certification number: [id number] [facility] 08/28/19-11/26/19 Patient wants test scheduled at [facility] El Prasad El Prasad 08/28/2019 3:44 PM Signed Patient insurance advised to get authorization for a split night study - in case this is required. She said if the second study is not n eeded the auth still covers just the PSG. Did you want to put a split study order in for me to send to [facility]? Yann Diallo MD 08/28/2019 9:12 PM Signed Yes. It is actually ordered as a split night if you see th e comments in the order. There is not an actual order for split night. El Parham 08/29/2019 10:46 AM Signed Patient is scheduled for a PSG at [facility] on 09/09/19 at 800 pm. Order was faxed to [phone]. Patient was notified. Allergies As of Date: 08/28/2019 Noted Allergy Reaction AUGMENTIN (AMOXICILLIN-POT CLAVUL*05/04/2017 2 - Rash Date Reviewed: 08/25/2019 Reviewed by: Yann Diallo Jr. - Fully Assessed Reason for Visit: Procedure [88] Cmt: PSG Prescriptions as of 08/28/2019 Sig: MAGNESIUM GLUCONATE 27 MG MAG* Take by mouth once daily. ASCORBIC ACID (VITAMIN C) 500* Take 500 mg by mouth once tracy * GABAPENTIN 300 MG CAPSULE Take 3 capsules daily as inst* CPAP Please decrease bilevel setti* LOVASTATIN 10 MG TABLET Take 10 mg by mouth daily at * FLAXSEED 1,000 MG CAPSULE Take by mouth. CPAP Please decrease PAP setting t* Patient not taking: Reported on 02/24/2019 FLUTICASONE PROPIONATE 50 MCG* VITAMIN B COMPLEX ORAL Take by mouth once daily. METHOTREXATE SODIUM 2.5 MG TA* Take 2.5 mg by mouth every Fr * ESCITALOPRAM 10 MG TABLET Take 10 mg by mouth once shane* FAMOTIDINE 20 MG TABLET Take 40 mg by mouth twice tracy* NITROSTAT 0.4 MG SUBLINGUAL T* ASPIRIN 81 MG TABLET,DELAYED * Take 81 mg by mouth once shane * MULTI-VITAMIN ORAL Take by mouth. * CHOLECALCIFEROL (VITAMIN D3) * Take 1 capsule by mouth onc e * * FOLIC ACID 1 MG TABLET * ENBREL 50 MG/ML (1 ML) SUBCUT* takes once weekly. Problem List As Of Date 08/28/2019 Noted Resolved Rheumatoid arthritis (HCC) [M06.9] More... More... More... Abnormal Stress Test [R94.39] 02/12/2009 More... Hypomania [F30.8] 02/12/2009 More... PVC's 02/12/2009 More... Osteopenia [M85.80] 02/12/2009 Routine Gynecological Examination [Z01.419] 02/16/2009 Class: Chronic More... GERD (Gastroesophageal Reflux Disease) [K21.9] 02/16/2009 More... Impaired Fasting Glucose [R73.01] 02/16/2009 Neoplasm of uncertain behavior of skin [D48.5] 03/30/2010 Irritable bowel syndrome with diarrhea [K58.0] 03/24/2015 Hyperlipidemia [E78.5] 04/05/2015 ZAID (obstructive sleep apnea) [G47.33] 04/05/2015 Multiple thyroid nodules [E04.2] 04/05/2015 TIA (transient ischemic attack) [G45.9] 04/05/2015 Anxiety neurosis [F41.1] 04/05/2015 RBBB [I45.10] 04/05/2015 Micrognathia [M26.09] 04/05/2015 Family history of colon cancer [Z80.0] 04/08/2015 04/08/2015 Migraine aura without headache [G43.109] 07/19/2017 Left pontine stroke (HCC) [I63.50] 07/19/2017 Cerebrovascular small vessel disease [I67.9] 07/19/2017 Inversion of nipple [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 Breast swelling [N63.0] 07/05/2018 12/04/2018 More... RLS (restless legs syndrome) [G25.81] 02/24/2019 History of TIA (transient ischemic attack) [Z86*02/24/2019 Migraine without aura and without status migrai*02/24/2019 Encounter Status:Closed by EL PARHAM on 08/29/19 protime on INR Coag (PPP) [Relative 1.00 0.90-1.30 {INR} Normal 08-24 [place] time] System (00 000) Comment: Result Comment: Vitamin K An tagonist (VKA) Therapeutic Range: INR 2 to 3 (Target INR of 2.5) Note: For patients treated w ith VKA drugs, such as warfarin, the [employer] 2012 Guideline recommends a therapeutic INR range of 2 to 3 (target INR of 2.5). This recommendation includes high -risk patients with antiphospholipid syndrome with previous arter ial or venous thromboembolism, current-generation mechanica l or bioprosthetic aortic heart valve replacement. Note: Patients with missile pad mechanic al aortic valve replacement and additional risk factors for thromboembolic events (atrial fibrillation, previous throm boembolism, LV dysfunction, hypercoagulable conditions) or an older generation mechanical AVR (i.e., ball in-Cage) or any mechanical MVR should have a INR therapeutic range of 2 .5 to 3.5 target INR of 3). Marissa GH, et al. Chest 2012 ; 141:7S-47S Rosalino RA et al. JACC 20 17; 70: 252-289 Performed By: #### GPT #### [facility] [address] [place], [place] [address] PT Coag (PPP) [Time] 10.4 9.7-13.0 sec Normal 0 [facility] ([id number]) Comment: Performed By: #### GPT #### [facility] [address] [place], [place] [address] progress on 2019-08 PROGRESS HNO ID: [id number] Normal 08-25-2019 [place] Author: Yann Diallo Jr. General Service: ? Medical Author Type: Physician Center Type: Progress Notes ([id number]) Filed: 08/25/2019 11:19 AM Note Text: ESTABLISHED PATIENT VISIT HISTORY OF PRESENT ILLNESS: Claire Guevara is a 64 year ol d female, There were no vitals taken for this visit. with a PMH signif icant for and per my last office note of 02/24/19: 1. Obstructive sleep apnea (adult) (pediatric) - ICD9: 327.2 3, ICD10: G47.33 (primary diagnosis) Still issues with PAP as above, even with mask change. Will again try to lower PAP setting, now to 8/4 cmH2O with the idea that parti al control of respiratory events (mild ZAID) is still better than her basel ine. Perhaps if she can then get used to the lower pressure, we can try t o again increase as she was in the past. ? 2. RLS (restless legs syndrome) - ICD9: 333.94, ICD10: G25.8 1 Overall doing well with occasional breakthrough for which sh e takes 900mg rather than 600mg of gabapentin QHS. No side effects. No graciela nge in dose. ? 3. History of TIA (transient ischemic attack) - ICD9: V12.54 , ICD10: Z86.73 Compliant with ASA, statin. BP goal <140/90. Glucose goal <1 40. Still possible that event was a atypical or complicated migraine. ? 4. Migraine without aura and without status migrainosus, not intractable - ICD9: 346.10, ICD10: G43.009 Overall controlled with 1 headache per month - not appropria te for preventative therapy. Abortive therapy with OTCs works, and thus no additional meds at this time. ? 5. Language impairment - ICD9: 784.59, ICD10: F80.9 Resolved. If returns or worsens will refer for cognitive the rapy. Note that a PAP download was performed on 06/15/2019 - used 68 % days >4 hours. AHI was 5.8. Again pressure 8/4 cmH2O (see Epic for f ull report). However, patient states in the past month she has not been u sing it. States mask was making her face break out and that it was ca using abrasions. She does report weight loss, stating she thinks a bout 15 pounds since the time of her last titration study. Patient states she is now having some trouble falling asleep . When asked why she is not falling asleep she states its due to her taki ng a nap during the day or the tv is on. However, she also reports ti ngling in the feet nightly. She reports RLS has not been present except fo r 1 event. She does not feel RLS is keeping her awake. Once asleep can sleep through the night. Going to bed about 7PM, but does not fall asleep until 930PM. Waking to start the day about 8AM. On the days she is having difficulties falling asleep, she states she is asleep around 11PM. She st ates she took an extra gabapentin about a week ago (900mg total) and did h elp sleep onset and without side effect. Headaches well controlled - maybe once every 2 months. She states she stopped taking ASA due to bruising easily and nose bleeds. She quit statin due to jaw pain and leg pain. When asked if any labs checked for above symptoms, she states none were checked. Lipids on 05/2019: total chol 225, HDL 44, LDL 153. When asked if PCP has discussed with her alternatives she st ates no. REVIEW OF SYSTEMS GENERAL:No weight loss, malaise or fevers. HEENT:Negative for frequent or significant headaches, No graciela nges in hearing or vision, no nose bleeds or other nasal problems NECK:Negative for lumps, goiter, pain and significant neck s welling RESPIRATORY: Numerous bouts of bronchitis per pt but current ly without cough or sob. CARDIOVASCULAR: Negative for chest pain, leg swelling or pal pitations. GASTROINTESTINAL: Negative for abdominal discomfort, blood i n stools or black stools or change in bowel habits GENITOURINARY: No history of dysuria, frequency or incontine nce MUSCULOSKELETAL: Arthralgias, myalgias - diffuse. NEUROLOGIC:Negative for focal numbness or weakness, headache s and dizziness or syncope, vision changes, speech/languag changes - EXCEPT that as per HPI above. SKIN:Negative for lesions, rash, and itching. PSYCHIATRIC: Anxiety. HEMATOLOGIC/LYMPHATIC/IMMUNOLOGIC:Negative for prolonged ble eding, bruising easily or swollen nodes. ENDOCRINE: Negative for cold or heat intolerance, polyuria, polydipsia and goiter. The remainder of the ROS was reviewed and is negative. LAB/IMAGING: No recent. Requesting from PCP. See chol as abo ve that pt provided through her phone record of lab. MEDICATIONS: CPAP Please decrease bilevel setting to 8/4 cmH2O and provid e us download in 3 weeks. Thank you. gabapentin (NEURONTIN) 300 mg capsule Take 2-3 capsules shane y as instructed. lovastatin (MEVACOR) 10 mg tablet Take 10 mg by mouth daily at bedtime. flaxseed 1,000 mg cap Take by mouth. CPAP Please decrease PAP setting to 9/5 cmH2O and provide us with data download in 2 weeks. fluticasone (FLONASE) 50 mcg/actuation nasal spray VITAMIN B COMPLEX ORAL Take by mouth once daily. methotrexate 2.5 mg tablet Take 2.5 mg by mouth every Sunday . escitalopram oxalate (LEXAPRO) 10 mg tablet Take 10 mg by mo ut once daily. famotidine (PEPCID) 20 mg tablet Take 40 mg by mouth twice d aily. NITROSTAT 0.4 mg SL tablet aspirin, enteric coated (ASPIRIN, ENTERIC COATED) 81 mg EC t ablet Take 81 mg by mouth once daily. MULTI-VITAMIN ORAL Take by mouth. Cholecalciferol, Vitamin D3, (VITAMIN D) 1,000 unit Cap Take 1 capsule by mouth once daily. FOLIC ACID 1 mg ORAL tablet etanercept(ENBREL 50 MG/ML (0.98 ML) SUB-Q SYRINGE) takes on ce weekly. HISTORIES PAST MEDICAL HISTORY Diagnosis Date - Abdominal pain - Abnormal breast exam - Arthritis - Bipolar 1 disorder (HCC) - Chest pain - Constipation - Coronary artery disease - Depression - Diabetes (HCC) - Diarrhea - Disorder of bone and cartilage, unspecified - Dizziness - Ear pain - Generalized anxiety disorder - Golfer's elbow, right - Headache - History of medical problems [...] negative, BRCA1-2 negative, daughter of sister with c ancer SOCIAL HISTORY Social History Tobacco Use - Smoking status: Never Smoker - Smokeless tobacco: Never Used Substance Use Topics - Alcohol use: No - Drug use: No PHYSICAL EXAMINATION LMP 04/11/2005 Blood pressure 114/66, pulse 81, height 5' 4 (1.626 m), chay ght 135 lb 12.8 oz (61.6 kg), last menstrual period 04/11/2005, SpO2 95 %. GENERAL EXAM: General appearance: NAD, pleasant. HEENT: NC/AT, nasal congestion absent, no oral lesions, memb ranes moist. NECK: No masses, supple. Lungs: CTA bilaterally. CV: RRR nl S1, S2. No carotid bruits. Extr: No cyanosis, clubbing or edema. Skin: Cool to touch. No rash. NEUROLOGICAL EXAM: General: Awake, alert, oriented x3 (person,place,time), spee ch fluent, no dysarthria; comprehension, naming, repetition intact. Fund o f knowledge grossly normal by MOCA. CN: PERRL, fundi with no evidence of papilledema, EOMI and w ithout nystagmus, VFF to confrontation, facial sensation and streng th are normal and symmetric, hearing is intact to finger rub bilaterally, palate and tongue movements are intact and symmetric. SCM and trapezius strength normal. Motor: Normal tone, bulk and strength (5/5) bilaterally (thr oughout extremities x4). Reflexes: 2/4 and symmetric, plantar stimulation is flexor. Coordination: FNF, CHON, HTS intact. No tremors. Sensation: Light touch and pin intact throughout. No evidenc e of neglect. Gait: Narrow based and stable with normal stride and arm swi ng. Assessment and Plan: ASSESSMENT/PLAN: 1. Obstructive sleep apnea (adult) (pediatric) - ICD9: 327.2 3, ICD10: G47.33 (primary diagnosis) Patient non-complaint with PAP therapy due to mask complaint s as above. Further exacerbated by underlying anxiety. With weight loss question if sleep apnea improved and perhaps no longer needing pap or co uld treat with positional therapy or other such as oral appliance. Thus aurora l get new PSG. If AHI >5 during that study will request for a split ni ght, starting at CPAP 5 cmH2O. 2. History of TIA (transient ischemic attack) - ICD9: V12.54 , ICD10: Z86.73 3. Epistaxis - ICD9: 784.7, ICD10: R04.0 4. Bruising - ICD9: 924.9, ICD10: T14.8XXA 5. Hyperlipidemia, unspecified hyperlipidemia type - ICD9: 2 72.4, ICD10: E78.5 Again, possible that event was complicated migraine. However , treating as TIA. Patient stopped ASA due to epistaxis and bruising. Expl ained risks of recurrent TIA being off antiplt but pt chooses not to res tart. Will check plt count and PT/INR. Cholesterol also poorly controll ed. Encouraged follow up with PCP. Goal BP <140/90. Glucose goal <140. 6. RLS (restless legs syndrome) - ICD9: 333.94, ICD10: G25.8 1 7. Poor sleep hygiene - ICD9: 307.49, ICD10: Z72.821 Patient with difficulties falling asleep as above. Possible numbness she reports is in fact RLS. Also poor sleep hygiene with irregul ar sleep schedule with daytime naps and watching tv in bed. Recommendations to improve sleep hygiene provided to patient including: Avoid going to bed with a negative mind set. If one finds themself lying awake and worrying in bed, try t o clear the mind by makin a to-do list before going to bed. Go to sleep and wake up at the same time EVERYday. Relax before going to bed: reading, listening to music, taki ng a bath. Create a positive sleep environment: comfortable, quiet, jan k. Stop clockwatching. Get out of bed and do a relaxing activity if not alseep in 2 0 minutes. Avoid using bed for activities other than sleep and intimate relations. Avoid naps during the day. Avoid alcohol and smoking. Exercise regularly but not within four hours of bedtime. Will also increase gabapentin to 900mg QHS. SE and ADRs revi ewed with patient. PDMP website checked and validated. All prescriptions have b een APPROPRIATELY filled. No suspicious activity was identified. 08/25/2019 by Yann Diallo MD 8. Migraine without aura and without status migrainosus, not intractable - ICD9: 346.10, ICD10: G43.009 Stable as above. No need for change in medications. Yann Diallo MD I spent 40 minutes in the visit, with more than 50% of the [facility] [id number] time of the visit in counseling / coordination of care. hemogram on 2019-08 Erythrocyte distribution 15.6 11.7-14.4 % High 08-24 [facility] width (RBC) [Ratio] System ([address]52) Comment: Performed By: #### CBC1 #### [address] [address] Hematocrit (Bld) [Volume 41.8 34.1-44.9 % Normal 08-24 [facility] fraction] System (00 000) Comment: Performed By: #### CBC1 #### [address] [address] Hemoglobin (Bld) 13.4 11.2-15.7 g/dL Normal 08-25-2019 [facility] [Mass/Vol] System (0 0000) Comment: Performed By: #### CBC1 #### [address] [address] MCH (RBC) [Entitic mass] 30.4 25.6-32.2 pg Normal 08-24 [facility] (00 000) Comment: Performed By: #### CBC1 #### [facility] [address] [place], [place] [address] MCHC (RBC) [Mass/Vol] 32.1 31.6-34.8 % Normal 08-25-19 20 [facility] ([address]) Comment: Performed By: #### CBC1 #### [facility] [address] [place], [place] [address] MCV (RBC) [Entitic vol] 94.8 79.4-94.8 fl Normal 2019 [facility] (00 000) Comment: Performed By: #### CBC1 #### [facility] [address] [place] [id number] Platelet mean volume (Bld) 10.7 9.4-12.3 fl Normal [facility] [Entitic vol] System ([address]) Comment: Performed By: #### CBC1 #### [facility] [address] [place], [place] [address] Platelets (Bld) [#/Vol] 177 182-369 thou/cmm Low 2019 [facility] (00 000) Comment: Performed By: #### CBC1 #### [facility] [address] [place], [place] [address] RBC (Bld) [#/Vol] 4.41 3.93-5.22 mil/cmm Normal 08-25-2019 [facility] (00 000) Comment: Performed By: #### CBC1 #### [facility] [address] [place], [place] [address] RDW SD 55.0 36.4-46.3 fl High 08-25-2019 [facility] ([address]) Comment: Performed By: #### CBC1 #### [facility] [address] [place], [place] [address] WBC (Bld) [#/Vol] 5.22 3.98-10.04 thou/cmm Normal 08-25-2019 [facility] (00 000) Comment: Performed By: #### CBC1 #### [facility] [address] [place], [place] [address] cnpn on 2019-08-25 CNPN Telephone (NEURGN) Normal 08-25-2019 [facility] CLAIRE GUEVARA ([id number]) 1955 F Medical Date Time Provider Department Center 08/25/19 YOEL MARTINEZ, YANN Roca NEUR ([id number]) During your visit today, we recorded the following informati on about you: El Prasad 08/25/2019 11:47 AM Signed Patient was seen this dorie de jesus - she forgot to ask you if you were going to give her a cholesterol prescripti on? She said you discussed it but she was not sure. El Parham 08/25/2019 1:44 PM Signed Patient was notified. She verbalized understanding. Allergies As of Date: 08/25/2019 Noted Allergy Reaction AUGMENTIN (AMOXICILLIN-POT CLAVUL*05/04/2017 2 - Rash Date Reviewed: 08/25/2019 Reviewed by: Yann Diallo Jr. - Fully Assessed Reason for Visit: Patient Question [[id number]] Cmt: Neurology - Cholesterol Prescriptions as of 08/25/2019 Sig: MAGNESIUM GLUCONATE 27 MG MAG* Take by mouth once daily. ASCORBIC ACID (VITAMIN C) 500* Take 500 mg by mouth once tracy * GABAPENTIN 300 MG CAPSULE Take 3 capsules daily as inst* CPAP Please decrease bilevel setti* LOVASTATIN 10 MG TABLET Take 10 mg by mouth daily at * FLAXSEED 1,000 MG CAPSULE Take by mouth. CPAP Please decrease PAP setting t* Patient not taking: Reported on 02/24/2019 FLUTICASONE PROPIONATE 50 MCG* VITAMIN B COMPLEX ORAL Take by mouth once daily. METHOTREXATE SODIUM 2.5 MG TA* Take 2.5 mg by mouth every Fr * ESCITALOPRAM 10 MG TABLET Take 10 mg by mouth once shane* FAMOTIDINE 20 MG TABLET Take 40 mg by mouth twice tracy* NITROSTAT 0.4 MG SUBLINGUAL T* ASPIRIN 81 MG TABLET,DELAYED * Take 81 mg by mouth once shane * MULTI-VITAMIN ORAL Take by mouth. * CHOLECALCIFEROL (VITAMIN D3) * Take 1 capsule by mouth onc e * * FOLIC ACID 1 MG TABLET * ENBREL 50 MG/ML (1 ML) SUBCUT* takes once weekly. Problem List As Of Date 08/25/2019 Noted Resolved Rheumatoid arthritis (HCC) [M06.9] More... More... More... Abnormal Stress Test [R94.39] 02/12/2009 More... Hypomania [F30.8] 02/12/2009 More... PVC's 02/12/2009 More... Osteopenia [M85.80] 02/12/2009 Routine Gynecological Examination [Z01.419] 02/16/2009 Class: Chronic More... GERD (Gastroesophageal Reflux Disease) [K21.9] 02/16/2009 More... Impaired Fasting Glucose [R73.01] 02/16/2009 Neoplasm of uncertain behavior of skin [D48.5] 03/30/2010 Irritable bowel syndrome with diarrhea [K58.0] 03/24/2015 Hyperlipidemia [E78.5] 04/05/2015 ZAID (obstructive sleep apnea) [G47.33] 04/05/2015 Multiple thyroid nodules [E04.2] 04/05/2015 TIA (transient ischemic attack) [G45.9] 04/05/2015 Anxiety neurosis [F41.1] 04/05/2015 RBBB [I45.10] 04/05/2015 Micrognathia [M26.09] 04/05/2015 Family history of colon cancer [Z80.0] 04/08/2015 04/08/2015 Migraine aura without headache [G43.109] 07/19/2017 Left pontine stroke (HCC) [I63.50] 07/19/2017 Cerebrovascular small vessel disease [I67.9] 07/19/2017 Inversion of nipple [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 Breast swelling [N63.0] 07/05/2018 12/04/2018 More... RLS (restless legs syndrome) [G25.81] 02/24/2019 History of TIA (transient ischemic attack) [Z86*02/24/2019 Migraine without aura and without status migrai*02/24/2019 Encounter Status:Closed by EL PARHAM on 08/25/19 cnov on 2019-08-25 CNOV Office Visit (NEURGN) Normal 08-25-19 20 [facility] CLAIRE GUEVARA ([id number]) 1955 F Medical Date Time Provider Department Center 08/25/19 10:30 AM YANN DIALLO JR NEUR ([id number]) During your visit today, we recorded the following informati on about you: Pulse Blood pressure Weight Height 81/minute 114/66 61.6 kg 1.626 m Yann Diallo MD 08/25/2019 11:19 AM Signed ESTABLISHED PATIENT VISIT HISTORY OF PRESENT ILLNESS: Calire Guevara is a 64 year old female, There were no vitals taken for thi s visit. with a PMH significant for and per my last office note of 02/24/19: 1. Obstructive sleep apnea (adult) (pediatric) - ICD9: 327.23, ICD10: G47.33 (primary diagnosis) Still issues with PAP as above, even wit h mask change. Will again try to lower PAP setting, now to 8/4 cmH2 O with the idea that partial control of respiratory events (mild ZAID) is still better than her baseline. P erhaps if she can then get used to the lower pressure, we can t ry to again increase as she was in the past. ? 2. RLS (restless legs syndrome) - ICD9: 333.94, ICD10: G25.8 1 Overall doing well with occasional breakthrough for which sh e takes 900mg rather than 600mg of gabapentin QHS. No side effects. No graciela nge in dose. ? 3. History of TIA (transient ischemic attack) - ICD9: V12. 54, ICD10: Z86.73 Compliant with ASA, statin. BP goal <140/90. Glucose goal <1 40. Still possible that event was a atypical or complicated migraine. ? 4. Migraine without aura and without status migrainosus, not intractable - ICD9: 346.10, ICD10: G43.009 Overall controlled with 1 he adache per month - not appropriate for preventative therapy. Abortive therapy with OTCs work s, and thus no additional meds at this time. ? 5. Language impairment - ICD9: 784.59, ICD10: F80.9 Resolved. If returns or worsens will refer for cognitive the rapy. Note that a PAP download was performed on 06/15/2019 - u sed 68% days >4 hours. AHI was 5.8. Again pressure 8/4 cmH2O (see Epic for full rep ort). However, patient states in the past month she has not been using it . States mask was making her face break out and that it was causing maikel sions. She does report weight loss, stating she thinks about 15 pounds since the ti me of her last titration study. Patient states she is now having some trouble falling asleep. When asked why she is not falling asleep sh e states its due to her taking a nap during the day or the tv is on. However, she also reports tingling in the feet nightly. She reports RLS has not been present except for 1 ev ent. She does not feel RLS is keeping her awake. Once asleep can sleep through the night. Going to bed about 7PM, but does not fall asleep unti l 930PM. Waking to start the day about 8AM. On the days she is having difficulties fall ing asleep, she states she is asleep around 11PM. She states she took an extra gabap entin about a week ago (900mg total) and did help sleep onset and without side effe ct. Headaches well controlled - maybe once every 2 months. She states she stopped taking ASA due to bruisin g easily and nose bleeds. She quit statin due to jaw pain and leg pain. When asked i f any labs checked for above symptoms, she states none were checked. Lipids on 05/2019: total chol 225, HDL 44, LDL 153. When asked if PCP has discussed with her alternatives she st ates no. REVIEW OF SYSTEMS GENERAL:No weight loss, malaise or fevers. HEENT:Negative for frequent or significa nt headaches, No changes in hearing or vision, no nose bleeds or other nasal problems NECK:Negative for lumps, goiter, pain and significant neck s welling RESPIRATORY: Numerous bouts of bronchitis per pt but currently without cough or sob. CARDIOVASCULAR: Negative for chest pain, leg swelling or pal pitations. GASTROINTESTINAL: Negative for abdominal discomf ort, blood in stools or black stools or change in bowel habits GENITOURINARY: No history of dysuria, frequency or incontine nce MUSCULOSKELETAL: Arthralgias, myalgias - diffuse. NEUROLOGIC:Negative for focal numbness o r weakness, headaches and dizziness or syncope, vision changes, spe ech/languag changes - EXCEPT that as per HPI above. SKIN:Negative for lesions, rash, and itching. PSYCHIATRIC: Anxiety. HEMATOLOGIC/LYMPHATIC/IMMUNOLOGIC:Negative for prolonged b leeding, bruising easily or swollen nodes. ENDOCRINE: Negative for cold or heat intolerance, polyuria, polydipsia and goiter. The remainder of the ROS was reviewed and is negative. LAB/IMAGING: No recent. Requesting from PCP. See chol as abo ve that pt provided through her phone record of lab. MEDICATIONS: CPAP Please decrease bilevel setting to 8/4 cmH2O and provide us download in 3 weeks. Thank you. gabapentin (NEURONTIN) 300 mg capsule Take 2-3 capsule s daily as instructed. lovastatin (MEVACOR) 10 mg tablet Take 10 mg by mouth daily at bedtime. flaxseed 1,000 mg cap Take by mouth. CPAP Please decrease PAP set ting to 9/5 cmH2O and provide us with data download in 2 weeks. fluticasone (FLONASE) 50 mcg/actuation nasal spray VITAMIN B COMPLEX ORAL Take by mouth once daily. methotrexate 2.5 mg tablet Take 2.5 mg by mouth every Sunday . escitalopram oxalate (LEXAPRO) 10 mg tablet Take 10 mg by mouth once daily. famotidine (PEPCID) 20 mg tablet Take 40 mg by mouth twice d aily. NITROSTAT 0.4 mg SL tablet aspirin, enteric coated (ASP IRIN, ENTERIC COATED) 81 mg EC tablet Take 81 mg by mouth once daily. MULTI-VITAMIN ORAL Take by mouth. Cholecalciferol, Vitamin D3, (VITAMIN D) 1,000 unit Cap Take 1 capsule by mouth once daily. FOLIC ACID 1 mg ORAL tablet etanercept(ENBREL 50 MG/ML (0.98 ML) SUB-Q SYRINGE) takes on ce weekly. HISTORIES PAST MEDICAL HISTORY Diagnosis Date - Abdominal pain - Abnormal breast exam - Arthritis - Bipolar 1 disorder (HCC) - Chest pain - Constipation - Coronary artery disease - Depression - Diabetes (HCC) - Diarrhea - Disorder of bone and cartilage, unspecified - Dizziness - Ear pain - Generalized anxiety disorder - Golfer's elbow, right - Headache - History of medical problems [...] negative, BRCA1-2 negative, daughter of sister with c ancer SOCIAL HISTORY Social History Tobacco Use - Smoking status: Never Smoker - Smokeless tobacco: Never Used Substance Use Topics - Alcohol use: No - Drug use: No PHYSICAL EXAMINATION [facility] 04/11/2005 Blood pressure 114/66, pulse 81, height 5' 4 (1.626 m), weight 135 lb 12.8 oz (61.6 kg), last menstrual period 04/11/2005, SpO2 95 %. GENERAL EXAM: General appearance: NAD, pleasant. HEENT: NC/AT, nasal congestion absent, no oral lesions, memb ranes moist. NECK: No masses, supple. Lungs: CTA bilaterally. CV: RRR nl S1, S2. No carotid bruits. Extr: No cyanosis, clubbing or edema. Skin: Cool to touch. No rash. NEUROLOGICAL EXAM: General: Awake, alert, oriented x3 (person,place,time), spee ch fluent, no dysarthria; comprehension, naming, repetition intact. Fund o f knowledge grossly normal by MOCA. CN: PERRL, fundi with no evidence of papilledema , EOMI and without nystagmus, VFF to confrontation, facial sensation and stren gth are normal and symmetric, hearing is intact to finger rub bilaterally, palate an d tongue movements are intact and symmetric. SCM and trapezius strength normal. Motor: Normal tone, bulk and strength (5/5) bilaterally (throughout extremities x4). Reflexes: 2/4 and symmetric, plantar stimulation is flexor. Coordination: FNF, CHON, HTS intact. No tremors. Sensation: Light touch and pin intact throughout. No evidenc e of neglect. Gait: Narrow based and stable with normal stride and arm swi ng. Assessment and Plan: ASSESSMENT/PLAN: 1. Obstructive sleep apnea (adult) (pediatric) - ICD9: 327.23, ICD10: G47.33 (primary diagnosis) Patient non-complaint with PAP therapy due to mask complaint s as above. Further exacerbated by underlying anxiety. With weight loss question if sleep apnea improved and perhaps n o longer needing pap or could treat with positional therapy or other such as oral appliance. Thus will get new P SG. If AHI >5 during that study will request for a split night, starting at CPAP 5 cmH2O. 2. History of TIA (transient ischemic attack) - ICD9: V12. 54, ICD10: Z86.73 3. Epistaxis - ICD9: 784.7, ICD10: R04.0 4. Bruising - ICD9: 924.9, ICD10: T14.8XXA 5. Hyperlipidemia, unspecified hyperlipi demia type - ICD9: 272.4, ICD10: E78.5 Again, possible that event was complicat ed migraine. However, treating as TIA. Patient stopped ASA due to epistaxis and bruising. Explained risks of recurrent TIA being off antiplt but pt chooses n ot to restart. Will check plt count and PT/INR. Cholesterol also poorly controlled. Encour aged follow up with PCP. Goal BP <140/90. Glucose goal <140. 6. RLS (restless legs syndrome) - ICD9: 333.94, ICD10: G25.8 1 7. Poor sleep hygiene - ICD9: 307.49, ICD10: Z72.821 Patient with difficulties falling asleep as above. Possible numbness she reports is in fact RLS. Also poor sleep hygiene with irregular sleep schedule with daytime naps and watching tv in bed. Recommendations to improve sleep hygiene provided to patient including: Avoid going to bed with a negative mind set. If one finds themself lying awake and worrying in bed, try to clear the mind by makin a to-do list before going to bed. Go to sleep and wake up at the same time EVERYday. Relax before going to bed: reading, listening to music, taki ng a bath. Create a positive sleep environment: comfortable, quiet, jan k. Stop clockwatching. Get out of bed and do a relaxing activity if not alseep in 2 0 minutes. Avoid using bed for activities other than sleep and intimate relations. Avoid naps during the day. Avoid alcohol and smoking. Exercise regularly but not within four hours of bedtime. Will also increase gabapentin to 900mg Q HS. SE and ADRs reviewed with patient. PDMP website checked and validated. All prescrip tions have been APPROPRIATELY filled. No suspicious activity was identified. 08/25/19 20 by Yann Diallo MD 8. Migraine without aura and without status migrainosus, not intractable - ICD9: 346.10, ICD10: G43.009 Stable as above. No need for change in medications. Yann Diallo MD I spent 40 minutes in the visit, with more than 50% of the total [id number]-vd-[id number] time of the visit in counseling / coordination of care. Yann Diallo MD 08/25/2019 10:52 AM Signed 1. Increase gabapentin to 900mg nightly (3 of the 300mg caps ules). Referring Provider: YANN DIALLO JR [[id number]] Allergies As of Date: 08/25/2019 Noted Allergy Reaction AUGMENTIN (AMOXICILLIN-POT CLAVUL*05/04/2017 2 - Rash Date Reviewed: 08/25/2019 Reviewed by: Yann Diallo Jr. - Fully Assessed Reason for Visit: Established Patient [175] Cmt: 6 month follow up- CPAP issue s Primary Visit Diagnosis:Obstructive sleep apnea (adult ) (pediatric) [G47.33] Other Visit Diagnoses:History of TIA (transient ischemic att ack) [Z86.73] Epistaxis [R04.0] Bruising [T14.8XXA] Hyperlipidemia, unspecified hyperlipidemia type [E78.5] RLS (restless legs syndrome) [G25.81] Migraine without aura and without status migrainosus, not intractable [G43.009] Poor sleep hygiene [Z72.821] Order(s):CBC [SQCBC] Order #: [id number] FUTURE PROTHROMBIN TIME/PT [SQPT] Order #: [id number] FUTURE POLYSOMNOGRAM (PSG) [5829006] Order #: [id number] FUTURE gabapentin (NEURONTIN) 300 mg capsuleTake 3 capsules daily a s instructed.Disp: 270 capsuleRfl: 0 Prescriptions as of 08/25/2019 Sig: MAGNESIUM GLUCONATE 27 MG MAG* Take by mouth once daily. ASCORBIC ACID (VITAMIN C) 500* Take 500 mg by mouth once tracy * GABAPENTIN 300 MG CAPSULE Take 3 capsules daily as inst* CPAP Please decrease bilevel setti* FLAXSEED 1,000 MG CAPSULE Take by mouth. FLUTICASONE PROPIONATE 50 MCG* VITAMIN B COMPLEX ORAL Take by mouth once daily. METHOTREXATE SODIUM 2.5 MG TA* Take 2.5 mg by mouth every Fr * ESCITALOPRAM 10 MG TABLET Take 10 mg by mouth once shane* FAMOTIDINE 20 MG TABLET Take 40 mg by mouth twice tracy* NITROSTAT 0.4 MG SUBLINGUAL T* MULTI-VITAMIN ORAL Take by mouth. * CHOLECALCIFEROL (VITAMIN D3) * Take 1 capsule by mouth onc e * * FOLIC ACID 1 MG TABLET * ENBREL 50 MG/ML (1 ML) SUBCUT* takes once weekly. LOVASTATIN 10 MG TABLET Take 10 mg by mouth daily at * CPAP Please decrease PAP setting t* Patient not taking: Reported on 02/24/2019 ASPIRIN 81 MG TABLET,DELAYED * Take 81 mg by mouth once shane * Problem List As Of Date 08/25/2019 Noted Resolved Rheumatoid arthritis (HCC) [M06.9] More... More... More... Abnormal Stress Test [R94.39] 02/12/2009 More... Hypomania [F30.8] 02/12/2009 More... PVC's 02/12/2009 More... Osteopenia [M85.80] 02/12/2009 Routine Gynecological Examination [Z01.419] 02/16/2009 Class: Chronic More... GERD (Gastroesophageal Reflux Disease) [K21.9] 02/16/2009 More... Impaired Fasting Glucose [R73.01] 02/16/2009 Neoplasm of uncertain behavior of skin [D48.5] 03/30/2010 Irritable bowel syndrome with diarrhea [K58.0] 03/24/2015 Hyperlipidemia [E78.5] 04/05/2015 ZAID (obstructive sleep apnea) [G47.33] 04/05/2015 Multiple thyroid nodules [E04.2] 04/05/2015 TIA (transient ischemic attack) [G45.9] 04/05/2015 Anxiety neurosis [F41.1] 04/05/2015 RBBB [I45.10] 04/05/2015 Micrognathia [M26.09] 04/05/2015 Family history of colon cancer [Z80.0] 04/08/2015 04/08/2015 Migraine aura without headache [G43.109] 07/19/2017 Left pontine stroke (HCC) [I63.50] 07/19/2017 Cerebrovascular small vessel disease [I67.9] 07/19/2017 Inversion of nipple [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 Breast swelling [N63.0] 07/05/2018 12/04/2018 More... RLS (restless legs syndrome) [G25.81] 02/24/2019 History of TIA (transient ischemic attack) [Z86*02/24/2019 Migraine without aura and without status migrai*02/24/2019 Other instructions from your clinician: 1. Increase gabapentin to 900mg nightly (3 of the 300mg caps ules). Prescriptions ordered this encounter Disp Refills Start End GABAPENTIN 300 MG CAPSULE 270 * 0 08/25/2019 02/23/2020 Sig: Take 3 capsules daily as instructed. Medications Discontinued During This Encounter gabapentin (NEURONTIN) 300 mg capsule 270 * 1 02/24/201908/24 Sig: Take 2-3 capsules daily as instructed. Disc: Reason for discontinue is not on file. Follow-up and Disposition History Recorded Encounter Status:Closed by SANJIV CEBALLOS on 08/25/19 provider note - ed v2 on 2019-06-08 Provider Note - Provider Note - ED v2: Normal 1 [facility] ED v2 Chart Review: [facility] ([id number]) ED NOTES ED NOTES: Nontoxic appearing female presents to urgent care with a c hief complaint of sore throat. Duration of symptoms 3 days. Associated symptom s sore throat. Patient states on May 12 she resumed the use of lovastatin. Patient states she discontinue this medication due to adverse reactio ns. Patient states she discontinue med on Sunday. P atient states on and Sunday she did have a fever highest recorded temperature 102.5 . Patient states fever broke yesterday afternoon. Patient states af ebrile upon arising this morning with no medication use. Patient states symptoms through Sunday were fever, sore throat, body aches and joint discomfort. Patient states only chief complaint today is sore throat. Patient states she was around individuals with strep throat and wants to be tested and sure she does not have strep th roat. Patient states 3 out of 10 pain at rest 6 out of 10 pain with swallowing. Patient states overall symptoms are progressively improving and she does feel jeffery r than she did Sunday and Sunday. Patient denies any fevers, nausea vomit ing, abdominal pain, headache, visual changes, cough, pleuritic pain, tyler rtness of breath, rash, chest pain, change in bowel or bladder hab its, or trismus. Patient does take immunosuppressant medications for RA. HISTORY OF PRESENTING ILLNESS CLAIRE is a 63 year old Female and was seen by me at 08-Jun-2019 09:43. The historian is the patient. Triage Information: Most recent Vital Sign Value Date PAST MEDICAL HISTORY ATTESTATION: I have reviewed and confirm ed nurse's/medic's notes for patient's medications, allergies, medical history, and surgical histor y PSYCHOSOCIAL SCREENING: NO: concerns for safety at home, fee lings of depression, feels like hurting others and feels like hurting self ALLERGIES/INTOLERANCES: Allergy Allergen: Augmentin Type: Drug Reaction: Rash HEALTH HISTORY: No documented data. OUTPATIENT MEDICATIONS: Home Medications Review Status for R econciliation: Complete Med Status: Patient Currently Takes Medications Drug Name: folic acid 1 mg oral tablet Instructions: 1 tab(s) orally once a day Drug Name: Lexapro 10 mg oral tablet Instructions: 1 tab(s) orally once a day Drug Name: famotidine 40 mg oral tablet Instructions: 1 tab(s) orally once a day (at bedtime) Drug Name: gabapentin 600 mg oral tablet Instructions: 1 tab(s) orally 3 times a day Drug Name: Enbrel 25 mg subcutaneous kit Instructions: null Drug Name: methotrexate 2.5 mg oral tablet Instructions: null SIGNIFICANT EVENTS: No documented data. REVIEW OF SYSTEMS ENMT Nose: POSITIVE for: congestion Throat/Neck: POSITIVE for: throat pain All other systems reviewed and are negative PHYSICAL EXAM CONSTITUTIONAL: Well appearing, well nourished, awake, alert , oriented to person, place, time/situation and in no apparent distress. HENMT: Airway patent, ears with clear tympanic membranes b ilaterally. Nasal mucosa clear. Mouth with normal mucosa. Throat has no vesicl es/abscess, no oropharyngeal exudates and uvula is midline. Face with no ly mph node enlargement. EYES: Clear bilaterally, pupils equal, round and reactive to light. CARDIOVASCULAR: Normal rate, regular rhythm. Normal peripher al perfusion RESPIRATORY: Lungs clear to auscultation bilaterally. No Ral es, crackles, rhonchi noted. Respirations equal and on labored. GASTROINTESTINAL: Abdomen soft, non-distended, no rebound, n o guarding. MUSCULOSKELETAL: Spine appears normal, range of motion is no t limited, no muscle or joint tenderness. NEUROLOGICAL: Alert and oriented, no focal deficits, no corazon r or sensory deficits. SKIN: Skin normal color for race, warm, dry and intact. No evidence of trauma. PSYCHIATRIC: Alert and oriented to person, place , time/situation. normal mood and affect. No apparent risk to self or others. HEME/LYMPH: Negative cervical adenopathy. RESULTS/VITAL SIGNS VITAL SIGNS: T PRBP SpO2O2(LPM) %FiO2 Method 08-Jun-2019 09:50:[id number] CLINICAL IMPRESSION Diagnosis/Annotation: ED Dx Name:Viral pharyngitis Code:J02.9 Dispostion: discharged Type: home ATTESTATION Comments/Additional Findings: A strep test was o btained results are negative. Patient will be treated conservatively for viral pharyngitis . Patient was educated on supportive therapies. Patient will f ollow up with PCP in 2-3 days for reevaluation. Patient was instructed to immediatel y proceed to emergency room for any new, worsening, or symptoms lasting longer than anticipated. The patient's clinical presentation is otherwise unr emarkable at this time. Based on exam and clinical finding the patient is stable for discharge. Plan of care was discussed with patient. Patient verbalizes understanding and agrees to plan of care. This note was generated using [employer]. It may contain errors in wording, punctuation, or spelling. CRITICAL CARE TIME Is this a critically ill patient: no Electronic Signatures: Kyle Rodriguez ([employer] MECHANIC HELPER-HAND RUG BRAIDER) (Signed 08-Jun-2019 11:28) Authored: Provider Note - ED v2 Last Updated: 08-Jun-2019 11:28 by Kyle Rodriguez (AP RN-HAND RUG BRAIDER) rheumatoid factor [ccl] on 2019-06-02 Rheumatoid Factor 280 <16 IU/mL High 06-02-2019 [facility] ([id number]) Comment: Result Comment: [facility] [employer] [address] [place] [address]60[address] Salvatore King III, M.D. [id number] Performed By: #### [id number] ## ## [facility],[address] [place] [address] 52676 hepatitis c ab ia w/confirm [ccl] on 2019-06-02 Hepatitis C Ab IA Negative NEGAT Normal 06-02-2019 [facility] ([id number]) Comment: Result Comment: [facility] [address] [place] [address] Salvatore King III, M.D. [id number] Performed By: #### [id number] ## ## [facility],[address] [place] [address] 36726 hep b surface ag [ccl] on 2019-06-02 Hepatitis B Surf. Ag Negative NEGAT Normal [address] [place] [address] ( [id number]) Comment: Result Comment: [facility] [address] [place] [address] Salvatore King III, M.D. [id number] Performed By: #### [id number] ## ## [facility],[address] [place] [address] 53972 hep b surface ab, quant [ccl] on 2019-06-02 HepB SurfaceAb,Quant <8.00 <8.00 Normal 9 [facility] ([id number]) Comment: Result Comment: No evidence of antibodies to Hepatitis B surface antigen. [facility] [place] [id number] Salvatore King III, M.D. [id number] Performed By: #### [id number] ## ## [facility],[address] [place] [address] 52067 hep b core ab, total (igm & igg) [ccl] on 2019-06-02 Hep B Core Ab,Total Negative NEGAT Normal 06-02-2019 [facility] ( [id number]) Comment: Result Comment: [place] [id number] [place] [address] Salvatore King III, M.D. [id number] Performed By: #### [id number] ## ## [facility],[address] [place] [address] 56893 cyclic citrullinated pep ab igg [ccl] on 2019-06-02 CCP Antibody, IgG 59 <20 Units High 06-02-2019 [facility] ([id number]) Comment: Result Comment: < 20 units: Negative 20-39 units: Weak Positive 40-59 units: Moderate Positi ve > 60 units: Strong Positive The following results were o btained with the [employer] QUANTA Lite CCP3 IgG LISSY. Anti-CCP values obtained wit h different manufacturers' assay methods may not be used interchangeably. The ma gnitude of the reported IgG levels cannot be correlated to an endpoint ti ter. [facility] [place] [address] Salvatore King III, M.D. [id number] Performed By: #### [id number] ## ## [facility],[address] [place] [address] 12453 ccp antibody, igg o n 2019-06-02 CCP Antibody, IgG 59 <20 Units High 06-02-2019 [facility] ([id number]) Comment: Performed By: #### RF, AHBSQ , AHBCOT, HBSAG, AHCV1B #### [facility] s Routine Lab [address] [place] [address] #### ANAIFS ### # [facility] [address] [place] [address] #### CCP #### [facility] Immuno Assay [address] [place] [address] shravan by ifa screen [ccl] on 2019-06-02 SHRAVAN Pattern Homogeneous Normal 06-02-2019 [facility] ([id number]) Comment: Result Comment: [facility] [address] [place] [address] Salvatore King III, M.D. [id number] Performed By: #### [id number] ## ## [facility],[address] [place] [address] SHRAVAN Titer 1:160 NEGAT Abnormal 06-02-2019 [facility] ([id number]) Comment: Performed By: #### [id number] ## ## [facility],[address] [place] [address] 03991 Nuclear Ab IF (S) Positive NEGAT Abnormal 06-02-2019 [facility] [[facility]] [facility] ( 96598) Comment: Result Comment: Normal range : negative at <1:80 serum dilution. Performed By: #### [id number] ## ## [facility],[address] [place] [address] 31137 tb by quantiferon *outside use only* on 2019-06-01 Interpretation TBNEG Normal 06-01-2019 [facility] ([id number]) Comment: Performed By: #### INTPGP ## ## [facility] [address] [place] [address] Mitogen minus Nil 8.48 Normal 06-01-2019 [facility] (06236) Comment: Performed By: #### INTPGP ## ## [facility] [place] [phone] TB NIL 0.07 IU/mL Normal 06-01-2019 [facility] (76203) Comment: Performed By: #### INTPGP ## ## [facility] [address] [place] [phone] TB Result NEGAT Negative Normal 06-01-2019 [facility] (08083) Comment: Performed By: #### INTPGP ## ## [facility] [address] [place] [phone] TB1 Ag minus Nil 0.00 <0.35 IU/mL Normal 06-01-2019 [facility] ([id number]) Comment: Performed By: #### INTPGP ## ## [facility] [address] [place] [phone] TB2 Ag minus Nil 0.00 <0.35 IU/mL Normal 06-01-2019 [facility] (80726) Comment: Performed By: #### INTPGP ## ## [place] [phone] quantiferon tb incubated [ccl] on 2019-06-01 Interpretation No evidence of current or Normal 06-01-2019 [facility] previous infection with [facility] Mycobacterium tuberculosis. (94733) Comment: Result Comment: [facility] [address] [place] [address] Salvatore King III, M.D. [id number] Performed By: #### [id number] ## ## [facility],[address] [place] [address] 32158 Mitogen minus Nil 8.48 Normal 06-01-2019 [facility] ([id number]) Comment: Performed By: #### [id number] ## ## [facility] ashish,[address] [place] [address]392 TB NIL 0.07 IU/mL Normal 06-01-2019 [facility] (83614) Comment: Performed By: #### [id number] ## ## [facility] [place] [address] TB Result Negative NEGAT Normal 06-01-2019 [facility] ([id number]) Comment: Performed By: #### [id number] ## ## [facility],[address] [place] [address] 927[address] TB1 Ag minus Nil 0.00 <0.35 IU/mL Normal 06-01-2019 [facility] (77523) Comment: Performed By: #### [id number] ## ## [facility],[address] [place] [address] 46910 TB2 Ag minus Nil 0.00 <0.35 IU/mL Normal 06-01-2019 [facility] (18977) Comment: Performed By: #### [id number] ## ## [facility],[address] [place] [address] shravan by ifa on 06-01 SHRAVAN Pattern HOMO Normal 06-01-[address] [facility] (97319) Comment: Performed By: #### RF, AHBSQ , AHBCOT, HBSAG, AHCV1B #### [facility] [place] [address] #### ANAIFS ### # [facility] [address] [place] [phone] #### CCP #### [facility] [address] [place] [phone] SHRAVAN Titer D160 Negative Abnormal 06-01-2019 [facility] ([id number]) Comment: Performed By: #### RF, AHBSQ , AHBCOT, HBSAG, AHCV1B #### [facility] [address] [place] [phone] #### ANAIFS ### # [facility] [address] [place] [phone] #### CCP #### [facility] [address] [place] [phone] Nuclear Ab IF (S) Positive Negative Abnormal 06-01-2019 [facility] [Titer] [facility] ([id number]) Comment: Performed By: #### RF, AHBSQ , AHBCOT, HBSAG, AHCV1B #### [facility] [address] [place] [phone] #### ANAIFS ### # [facility] [address] [place] [phone] #### CCP #### [facility] [address] [place] [phone] rheumatoid factor o n 2019-05-31 Rheumatoid Factor 280 <16 IU/mL High 05-31-2019 [facility] ([id number]) Comment: Performed By: #### RF, AHBSQ , AHBCOT, HBSAG, AHCV1B #### [facility] [address] [place] [phone] #### ANAIFS ### # [facility] [address] [place] [phone] #### CCP #### [facility] [address] [place] [phone] hepb surfaceab,quant on 2019-05-31 HepB SurfaceAb,Quant <8.00 <8.00 Normal 9 [facility] (04989) Comment: Performed By: #### RF, AHBSQ , AHBCOT, HBSAG, AHCV1B #### [facility] [address] [place] [phone] #### ANAIFS ### # [facility] [address] [place] [phone] #### CCP #### [facility] [address] [place] [phone] hepatitis b surf. ag on 2019-05-31 Hepatitis B Surf. Ag NEGAT Negative Normal 9 [facility] (04441 ) Comment: Performed By: #### RF, AHBSQ , AHBCOT, HBSAG, AHCV1B #### [facility] Routine Lab [address] [place] [phone] #### ANAIFS ### # [facility] [address] [place] [phone] #### CCP #### [facility] [address] [place] [phone] hep c ab ia w/conf on 2019-05-31 Hepatitis C Ab IA NEGAT Negative Normal 05-31-2019 [facility] ([id number]) Comment: Performed By: #### RF, AHBSQ , AHBCOT, HBSAG, AHCV1B #### [facility] [address] [place] [phone] #### ANAIFS ### # [facility] [address] [place] [place] [phone] #### CCP #### [facility] [address] [place] [phone] hep b core ab,total on 2019-05-31 Hep B Core Ab,Total NEGAT Negative Normal 05-31-2019 [facility] ([id number]) Comment: Performed By: #### RF, AHBSQ , AHBCOT, HBSAG, AHCV1B #### [facility] [address] [address] #### ANAIFS ### # [facility] [address] [address] #### CCP #### [facility] [address] [address] vitamin d, 25 hydroxy on 2019-05-30 VitD 83.04 30.00 - 100 ng/mL Normal 05-30-2019 [facility] (74593) Comment: Result Comment: 25-OHD3 shlomo cates both endogenous production and supplementation. 25-OHD2 is an indicator of exogenous sourc es, such as diet or supplementation. Therapy is based on measurement of Tota l 25-OHD, with levels <20 ng/mL indicative of Vitamin D deficiency, while levels between 20 ng/mL and 30 ng/mL suggest insufficiency. Optimal level s are >=30ng/mL. Vitamin D, 25-OH D3 Not Esta blished Vitamin D, 25-OH D2 Not Esta blished Performed By: #### [id number] ## ## [facility],[address] [place] [address] 58666 uric acid on 2018-06 Urate [Mass/Vol] 5.0 2.3 - 6.6 mg/dl Normal 05-30-2019 [facility] ( 64100) Comment: Performed By: #### [id number] ## ## [facility],[address] [place] [address] 09287 sgpt (alt) on 05-30 ALT [Catalytic activity/Vol] 16 8 - 35 U/L Normal 1 07-31-2018 [facility] ( 66704) Comment: Performed By: #### [id number] ## ## [facility],[address] [place] [address] 65803 sgot (ast) on 05-30 AST/SGOT 25 13 - 39 U/L Normal 05-30-2019 [facility] (10613) Comment: Performed By: #### [id number] ## ## [facility],[address] [place] [address] 60836 sedrate on SEDRATE 15 0 - 30 mm/hr Normal 05-30-2019 [facility] (82956) Comment: Performed By: #### [id number] ## ## [facility],[address] [place] [address] 43551 cbc + diff on 05-30 Basophils (Bld) 0.00 0.00 - 0.10 x10EE3/UL Normal 05-30-2019 [facility] [#/Vol] [facility] (31516) Comment: Performed By: #### [id number] ## ## [facility],[address] [place] [address] 91070 Basophils/100 WBC (Bld) 0.7 0.0 - 2.0 % Normal 2018 [facility] ( 04142) Comment: Performed By: #### [id number] ## ## [facility],[address] [place] [address] 87616 CBC + DIFF Normal 05-30-2019 [facility] (44169) Comment: Result Comment: CBC-COMPLETE BLOOD COUNT Performed By: #### [id number] ## ## [facility],[address] [place] [address] 39754 Eosinophils (Bld) 0.20 0.00 - 0.50 x10EE3/UL Normal 05-30-2019 [facility] [#/Vol] [facility] (58731) Comment: Performed By: #### [id number] ## ## [facility],[address] [place] [address] 55823 Eosinophils/100 WBC (Bld) 5.6 0.0 - 7.0 % Normal 05-12 [facility] ( 28066) Comment: Performed By: #### [id number] ## ## [facility],[address] [place] [address] 11867 Erythrocyte distribution 14.4 12.0 - 15.6 % Normal [facility] (RBC) [Ratio] [facility] (69725) Comment: Performed By: #### [id number] ## ## [facility],[address] [place] [address] 86560 Hematocrit (Bld) [Volume 41.7 34.0 - 46.0 % Normal [facility] ( 74462) Comment: Performed By: #### [id number] ## ## [facility],[address] [place] [address] 93281 Hemoglobin (Bld) 13.8 12.0 - 16.0 g/dl Normal 05-30-2019 [facility] [Mass/Vol] [facility] (47831) Comment: Performed By: #### [id number] ## ## [facility],[address] [place] [address] 38411 Lymphocytes (Bld) 1.60 0.80 - 2.80 x10EE3/UL Normal 05-30-2019 [facility] [#/Vol] [facility] (20952) Comment: Performed By: #### [id number] ## ## [facility],[address] [place] [address] 65887 Lymphocytes/100 WBC (Bld) 42.0 20.0 - 45.0 % Normal [facility] ( 17798) Comment: Performed By: #### [id number] ## ## [facility],[address] [place] [address] 27192 MANUAL DIFF N/A Normal 05-30-2019 [facility] (97506) Comment: Performed By: #### [id number] ## ## [facility],[address] [place] [address] 49128 MCH (RBC) [Entitic mass] 30 27 - 33 pg Normal 05-30 [facility] ( 56637) Comment: Performed By: #### [id number] ## ## [facility],[address] [facility] [address] MCHC (RBC) [Mass/Vol] 33 32 - 36 X10 3 Normal 05-30-20 19 [facility] ( 79070) Comment: Performed By: #### [id number] ## ## [facility],[address] [place] [address] 16307 MCV (RBC) [Entitic vol] 92 80 - 99 fl Normal 2018 [facility] ( 64271) Comment: Performed By: #### [id number] ## ## [facility],[address] [place] [address] 44642 Monocytes (Bld) 0.40 0.20 - 1.00 x10EE3/UL Normal 05-30-2019 Abelino nikolay [place] [#/Vol] [facility] (31012) Comment: Performed By: #### [id number] ## ## [facility],[address] [place] [address] 98737 MONOS % 11.2 0.0 - 10.0 % High 05-30-2019 [facility] (65998) Comment: Performed By: #### [id number] ## ## [facility],[address] [place] [address] 81735 Morphology Kasi (Bld) [Interp] N/A Normal 05-30-2019 [facility] ( 97388) Comment: Performed By: #### [id number] ## ## [facility],[address] [place] [address] 76771 Neutrophils (Bld) 1.50 1.50 - 7.10 x10EE3/UL Normal 05-30-2019 [facility] [#/Vol] [facility] (72851) Comment: Performed By: #### [id number] ## ## [facility],1 [facility] 57869 Neutrophils/100 WBC (Bld) 40.5 46.0 - 76.0 % Low [facility] ( 82726) Comment: Performed By: #### [id number] ## ## [facility],[address] [place] [address] 68926 Platelet mean volume 8.4 6.6 - 10.5 fl Normal 05-30-20 19 [facility] (Bld) [Entitic vol] [facility] (85064) Comment: Result Comment: AUTOMATED DI FFERENTIAL Performed By: #### [id number] ## ## [facility],[address] [place] [address] 35912 Platelets (d) 168 150 - 450 x10EE3/UL Normal 05-30-2019 [facility] [#/Vol] [facility] (14994) Comment: Performed By: #### [id number] ## ## [facility],[address] [place] [address] 43740 RBC (Bld) [#/Vol] 4.52 4.10 - 5.30 x 10EE6/UL Normal 9 [facility] (83576) Comment: Performed By: #### [id number] ## ## [facility],[address] [place] [address] 21808 WBC (Bld) [#/Vol] 3.8 4.5 - 10.8 x 10EE3/UL Low 05-30-2019 [facility] ( 28607) Comment: Performed By: #### [id number] ## ## [facility],[address] [place] [address] 57775 calcium total on 29-05-20 Calcium [Mass/Vol] 9.9 8.6 - 10.2 mg/dl Normal 05-30-2019 [facility] ( 66680) Comment: Performed By: #### [id number] ## ## [facility],[address] [place] [address] 71112 c-reactive protein on 2019-05-30 CRP [Mass/Vol] <0.10 0.00 - 1.00 mg/L Normal 05-30-2019 [facility] ( 00153) Comment: Performed By: #### [id number] ## ## [facility],[address] [place] [address] 24438 bun/creat egfr (non-) on 2019-05-30 Age - Reported 63 years Normal 05-30-2019 [facility] (87190) Comment: Performed By: #### [id number] ## ## [facility],[address] [place] [address] 32522 Creatinine [Mass/Vol] 0.8 0.6 - 1.2 mg/dl Normal 05-30-20 [facility] ( 20507) Comment: Performed By: #### [id number] ## ## [facility],[address] [place] [address] 32925 GFR/1.73 sq M >60 60 - 999 mL/min/{1.73_m2} Normal 9 [facility] non-blacks MDRD (000 00) (S/P/Bld) [Vol rate/Area] Comment: Result Comment: ACCORDING TO THE NATIONAL KIDNEY DISEASE EDUCATION PROGRAM(NKDE),A NORMAL eGFR IS A VALUE GREATER THAN OR E QUAL TO 60 ML/MIN/1.73 SQ METERS.KIDNEY DISEASE MAY BE PRESENT WHEN THE eGFR IS LESS THAN 60 ML/MIN/1.73 SQ METERS.VALUES LESS THEN 15 ML/MIN/1.73 SQ METERS IND ICATE KIDNEY FAILURE.THIS TEST SHOULD ONLY BE USED FOR PATIENTS 18 AND OLDER. Performed By: #### [id number] ## ## [facility],[address] [place] [address] 80701 Urea nitrogen [Mass/Vol] Normal 05-30 [facility] (49474) Comment: Result Comment: BUN/CREATINI NE eGFR NON-) Performed By: #### [id number] ## ## [facility],[address] [place] [address] 10250 Urea nitrogen [Mass/Vol] 10 6 - 20 mg/dl Normal 05-30 [facility] ( 29720) Comment: Performed By: #### [id number] ## ## [facility],[address] [place] [address] 53273 albumin plasma on Albumin [Mass/Vol] 4.2 3.4 - 4.8 g/dL Normal 05-30-2019 [facility] ( 75098) Comment: Performed By: #### [id number] ## ## [facility],[address] [place] [address] 55321 obsolete on 2017-10 OBSOLETE Orders Only Normal 11-02-2017 Hilda (MEPRAD) --------CLAIRE GUEVARA [facility] ( ) 1955 F CHTDate Jeevan e Provider Department11/02/17 YANN DIALLO JR During your visit (00 000) today, we recorded the follo wing information about you:Allergies As of Date: 11/02/2017 Noted Allergy ReactionAUGMENTIN (AMOXICILL IN-POT CLAVUL*05/04/2017 2 - RashDate Reviewed: 10/26/2017Reviewed by: Yann Diallo Jr. - Fully AssessedPrimary Visit Diagnosis:Obstructive sleep apnea (adult) (pediatric) [G47.33]Order(s):CPAP FULL F MALCOLM MASK [[id number]] Order #: [id number]: 1Prescriptions as of 11/02/2017 Sig: GABAPENTIN 300 MG CAPSU LE Take 3 capsules at dinner and* ROSUVASTATIN 5 MG TABLET 10 mg once daily. FLUTICASONE 50 MCG/AC TUATION * VITAMIN B COMPLEX ORAL Take by mouth once daily. METHOTREXATE SODIUM 2.5 MG TA* Take 2.5 m g by mouth every Fr* ESCITALOPRAM 10 MG TABLET Take 10 mg by mouth once shane* FAMOTIDINE 20 MG TABLE T Take 20 mg by mouth twice tracy* NITROSTAT 0.4 MG SUBLINGUAL T* ASPIRIN 81 MG TABLET,DELAYED * Take 81 mg by mouth once shane* ESCITALOPRAM 20 MG TABLET Take 20 mg by mouth once shane* MULTI-VITAMIN ORAL Adrian e by mouth. * CHOLECALCIFEROL (VITAMIN D3) * Take 1 capsule by mouth once * * FOLIC ACID 1 MG TABLET * E NBREL 50 MG/ML (0.98 ML) SUB* takes once weekly.Problem List As Of Date 11/02/2017 Noted Resolved Rh eumatoid arthritis (HCC) [M06.9] Priority: Moderate More... More... More... Abnormal Stress Test [R94.39 ] INVALID FOR* More... 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 PVC's INVALID FOR* More... Osteopenia [M85 .80] INVALID FOR* Routine Gynecological Examination [Z01.419] INVALID FOR* Class: Chronic More... GERD (Gastroesophageal Reflux Disease) [K21.9] INVALID FOR* More... Impaired Fasting Glucose [R73.01] INV ALID FOR* Neoplasm of uncertain behavior of skin [D48.5] INVALID FOR* Irritable bowel syndrome wit h diarrhea [K58.0] INVALID FOR* Hyperlipidemia [E78.5] INVALID FOR* ZAID (obstructive sleep apnea) [G 47.33] INVALID FOR* Multiple thyroid nodules [E04.2] INVALID FOR* TIA (transient ischemic attack) [G45.9] INVALID FOR* Anxiety neurosis [F41.1] INVALID FOR* RBBB [I45.10] INVALID FOR* Micrognathia [M 26.09] INVALID FOR* Family history of colon cancer [Z80.0] INVALID FOR*04/08/2015 Migraine aura without headache [G43.109] INVALID FOR* Left pontine stroke (HCC) [I63.50] INVALID FOR* Cerebrovascular small vessel disease [I67.9] INVALID FOR*Follow-up and Disposition History RecordedEncounter Number: [id number] Status:Closed by YANN DIALLO on 11/02/17 neurology consultation on 2017-06-27 Neurology Consultation Normal 018 [facility] ([place]) ([id number]) vl carotid us/doppler complete on 2017-06-26 VL Carotid US/Doppler Complete Normal 06-26-2017 [facility] ([place]) (46838) progress note on 28-06-15 Protein mass conc Normal 06-26-2017 [facility] ([place]) (65549) mri spine cervical w/o contrast on 2017-06-26 MRI SPINE ORIGINALMRI SPINE CERVICAL Normal [facility] CERVICAL W/O W/O CONTRAST [facility] ([place]) CONTRAST Statement: .. TIA, neck (75515) pain. Concern for stenosis.. Transient left foot [...] stenosis. Uncovertebral spurring and facet arthropathy cause xtmztrbl-[id number] right, mild left foraminal stenosis. C7-T1: No stenosis. IMPRESSION: 1. Symptoms in a right C6 or C7 distribution would correlate with the degenerative foraminal stenosis at C5-6 or C6-7 respectively.2. Mild degenerative spinal canal stenosis at C5-6 and C6-7.3. No intramedullary signal abnormality. Interpreted By: Dereje Timmonsreliminary Report By: Dereej Timmons MDElectronically Signed By: Dereje Timmons MD Dictated Date: 06/26/2017 12:48:07 PM Prelim Date: 06/26/2017 12:48:07 PM Sign Date: 06/26/2017 12:52:56 PM mra/mri brain w/o contrast on 2017-06-26 MRA/MRI BRAIN W/O ORIGINALMRA/MRI BRAIN W/O Normal 06-26-2017 [facility] CONTRAST CONTRAST Clinical Fo undation ([place]) Statement: tia. TECHNIQUE: ([id number]) Multiplanar, multisequence MRI imaging of the brain was obtained. Uhyi-de-omovgf MRA of the head. Source data and maximum intensity projections (MIPs) were reviewed. COMPARISON: Head CT without contrast 2017 FINDINGS: MRI BRAIN: Diffusion imaging shows no hyperacute, acute, or early subacute infarction. There is no mass, mass effect or abnormal extra-axial fluid collection. Scattered FLAIR hyperintensities in the cerebral white matter and sharon are nonspecific but statistically most consistent with mild chronic microvascular angiopathy. This is unusually confluent in the bilateral frontal periventricular regions. The ventricles are normal in size, shape and position. The paranasal sinuses and mastoid air cells are clear. The marrow signal pattern is within normal limits. MRA BRAIN: There is normal flow-related signal in the larger intracranial arteries. No large branch artery occlusion, definite significant arterial stenosis, or saccular aneurysm is demonstrated. The anterior communicating artery and the posterior communicating arteries are visible. IMPRESSION: 1. No acute intracranial abnormality. 2. Patchy nonspecific FLAIR hyperintensities, favored to be mild chronic microvascular angiopathy. 3. Normal noncontrast MRA of the head. Interpreted By: Dereje Timmons [facility] Report By: Dereje Timmons MDElectronically Signed By: Dereje Timmons MD Dictated Date: 06/26/2017 12:42:44 PM Prelim Date: 06/26/2017 12:42:44 PM Sign Date: 06/26/2017 12:47:58 PM lipid on 2017-06-26 Cholesterol in HDL mass 43 40-59 mg/dL Normal 2017 [facility] conc ([place]) (0000 0) Comment: Result Comment: HDL Referenc e Interval:Less than 40 Low - high risk60 or above Optimal/lowers risk Performed By: #### CBC, ADIF F, ANEU, BMP, GFR, APTT, PRO, TROPI ####[address] [address] Cholesterol in LDL mass 132 0-129 mg/dL High 2017 [facility] conc ([place]) (0000 0) Comment: Result Comment: LDL is a sherin culated result and requires a 12-hr fast.LDL Reference Interval:Less than 100 [id number] Near or above [id number] Borderline high aegx956-292 High qsjk470 and above Very high risk Performed By: #### CBC, ADIF F, ANEU, BMP, GFR, APTT, PRO, TROPI ####[address] [address] Cholesterol mass conc 194 50-199 mg/dL Normal 06-26-19 18 [facility] ([place]) (0000 0) Comment: Result Comment: Cholesterol Reference Interval:Less than 200 [id number] Borderline high voci697 and above High risk Performed By: #### CBC, ADIF F, ANEU, BMP, GFR, APTT, PRO, TROPI ####[address] [address] Triglyceride mass conc 97 3-149 mg/dL Normal 018 [facility] ([place]) (0000 0) Comment: Result Comment: Triglyceride Reference Interval:Less than 150 Oqxtgj503-295 Borderline high bitn493-285 High snmy229 or higher Very high risk Performed By: #### CBC, ADIF F, ANEU, BMP, GFR, APTT, PRO, TROPI ####[place] [address] inpatient patient summary on 2017-06-26 Inpatient Patient Summary Normal 06-11 [facility]) (48210) echocardiogram, adult on 2017-06-26 Echocardiogram, Adult Normal 06-26-19 18 [facility] ([place]) (81692) discharge summary o n 2017-06-26 Discharge Summary Normal 06-26-2017 [facility] ([place]) (83062) depart summary on 2 Depart Summary Normal 06-26-2017 [facility]) (41741) cbc on 2017-06-26 Erythrocyte distribution 15.2 11.5-15.5 % Normal 06-26 [facility] Auto Ratio (RBC) [facility]) (33259) Comment: Performed By: #### CBC, ADIF F, ANEU, BMP, GFR, APTT, PRO, TROPI ####[place] [address] Hematocrit Auto Volume 40.0 34.0-46.0 % Normal 018 [facility] Fraction (Bld) ([place]) (54724) Comment: Performed By: #### CBC, ADIF F, ANEU, BMP, GFR, APTT, PRO, TROPI ####[place] [address] Hemoglobin mass conc 13.3 12.0-16.0 G/dL Normal 8 [facility] (Bld) [facility] ([place]) (81221) Comment: Performed By: #### CBC, ADIF F, ANEU, BMP, GFR, APTT, PRO, TROPI ####[place] [address] MCH Auto Entitic mass 30.9 27.0-33.0 pg Normal 06-26-19 18 [facility] (RBC) ([place]) (0000 0) Comment: Performed By: #### CBC, ADIF F, ANEU, BMP, GFR, APTT, PRO, TROPI ####[place] [address] MCHC Auto mass conc 33.2 32.0-36.0 G/dL Normal 06-26-2017 [facility] (RBC) ([place]) (0000 0) Comment: Performed By: #### CBC, ADIF F, ANEU, BMP, GFR, APTT, PRO, TROPI ####[place] [address] MCV Auto Entitic volume 93.2 80.0-99.0 fL Normal 2017 [facility] (RBC) ([place]) (0000 0) Comment: Performed By: #### CBC, ADIF F, ANEU, BMP, GFR, APTT, PRO, TROPI ####[place] [address] Platelet mean volume Auto 9.3 6.6-10.5 fL Normal 06-11 [facility] Entitic volume (Bld) ([place]) (23110) Comment: Performed By: #### CBC, ADIF F, ANEU, BMP, GFR, APTT, PRO, TROPI ####[place] [address] Platelets Auto #/vol 128 150-450 10 3/mcL Low 8 [facility] ([facility] ([place]) (0000 0) Comment: Performed By: #### CBC, ADIF F, ANEU, BMP, GFR, APTT, PRO, TROPI ####[place] [address] RBC Auto #/vol 4.30 4.10-5.30 10 6/mcL Normal 06-26-2017 [facility] ([place]) (85303) Comment: Performed By: #### CBC, ADIF F, ANEU, BMP, GFR, APTT, PRO, TROPI ####[place] [address] WBC Auto #/vol (d) 3.50 4.50-10.80 10 3/mcL Low 06-26-19 18 [facility] ([place]) (0000 0) Comment: Performed By: #### CBC, ADIF F, ANEU, BMP, GFR, APTT, PRO, TROPI ####[place] [address] bmp on 2017-06-26 Calcium mass conc 8.7 8.4-10.1 mg/dL Normal 06-26-2017 [facility] ([place]) (67835) Comment: Performed By: #### CBC, ADIF F, ANEU, BMP, GFR, APTT, PRO, TROPI ####[place] [address] Chloride molar conc 106 98-110 mEq/L Normal 06-26-2017 [facility] ([place]) (04307) Comment: Performed By: #### CBC, ADIF F, ANEU, BMP, GFR, APTT, PRO, TROPI ####[place] [address] CO2 molar conc 29 22-32 mEq/L Normal 06-26-2017 [facility] ([place]) (43844) Comment: Performed By: #### CBC, ADIF F, ANEU, BMP, GFR, APTT, PRO, TROPI ####[place] [address] Creatinine mass conc 0.61 0.50-1.20 mg/dL Normal 8 [facility] ([place]) (0000 0) Comment: Performed By: #### CBC, ADIF F, ANEU, BMP, GFR, APTT, PRO, TROPI ####[place] [address] Electrolyte Balance 7.0 4.0-15.0 mEq/L Normal 06-26-2017 [facility] ([place]) (0000 0) Comment: Performed By: #### CBC, ADIF F, ANEU, BMP, GFR, APTT, PRO, TROPI ####[place] [address] Glucose mass conc 88 82-115 mg/dL Normal 06-26-2017 [facility] ([place]) (40289) Comment: Performed By: #### CBC, ADIF F, ANEU, BMP, GFR, APTT, PRO, TROPI ####[place] [address] Potassium molar conc 4.0 3.5-5.0 mEq/L Normal 8 [facility] ([place]) (0000 0) Comment: Performed By: #### CBC, ADIF F, ANEU, BMP, GFR, APTT, PRO, TROPI ####[place] [address] Sodium molar conc 142 136-145 mEq/L Normal 06-26-2017 [facility] ([place]) (99518) Comment: Performed By: #### CBC, ADIF F, ANEU, BMP, GFR, APTT, PRO, TROPI ####[place] [address] Urea nitrogen mass conc 11.0 8.0-22.0 mg/dL Normal 2017 [facility] ([place]) (01055) Comment: Performed By: #### CBC, ADIF F, ANEU, BMP, GFR, APTT, PRO, TROPI ####[place] [address] Urea nitrogen/Creatinine 18.0 10.0-22.0 ratio Normal 06-26 [facility] ([place]) (88104) Comment: Performed By: #### CBC, ADIF F, ANEU, BMP, GFR, APTT, PRO, TROPI ####[place] [address] a1c on 2017-06-26 Hemoglobin A1c/Hemoglobin.total 5.7 4.0-6.0 % Normal 06-26-2017 [place] ([facility]) [facility] ([place]) (22154) Comment: Performed By: #### CBC, ADIF F, ANEU, BMP, GFR, APTT, PRO, TROPI ####[place] [address] .morph on 2017-06-11 6 Platelets Auto #/vol Slt Decreased Normal 06-26 [facility] ([facility]) ([place]) (0000 0) Comment: Performed By: #### CBC, ADIF F, ANEU, BMP, GFR, APTT, PRO, TROPI ####[place] [address] RBC morphology finding Nom Normal Normal [facility] ([facility]) ([place]) (0000 0) Comment: Performed By: #### CBC, ADIF F, ANEU, BMP, GFR, APTT, PRO, TROPI ####[place] [address] .manual diff on 01-10-16 Basophil %, Manual 1.0 0.0-2.5 % Normal 06-26-2017 [facility] ([place]) (20475) Comment: Performed By: #### CBC, ADIF F, ANEU, BMP, GFR, APTT, PRO, TROPI ####[place] [address] Basophil, Abs Manual 0.04 0.00-0.27 10 3/mcL Normal 8 [facility] ([place]) (99931) Comment: Performed By: #### CBC, ADIF F, ANEU, BMP, GFR, APTT, PRO, TROPI ####[place] [address] Cells Counted 100 Normal 06-26-2017 [facility]) (62628) Comment: Performed By: #### CBC, ADIF F, ANEU, BMP, GFR, APTT, PRO, TROPI ####[place] [id number] Eosinophil, Abs Manual 0.32 0.00-0.65 10 3/mcL Normal 018 [facility]) (36043) Comment: Performed By: #### CBC, ADIF F, ANEU, BMP, GFR, APTT, PRO, TROPI ####[place] [address] Lymphocyte %, Manual 37.0 20.0-40.0 % Normal 8 [facility] ([place]) (0000 0) Comment: Performed By: #### CBC, ADIF F, ANEU, BMP, GFR, APTT, PRO, TROPI ####[place] [address] Lymphocyte, Abs Manual 1.29 0.90-4.32 10 3/mcL Normal 018 [facility]) (45305) Comment: Performed By: #### CBC, ADIF F, ANEU, BMP, GFR, APTT, PRO, TROPI ####[place] [address] Monocyte %, Manual 4.0 2.0-13.0 % Normal 06-26-2017 [facility]) (59152) Comment: Result Comment: 9.0 Performed By: #### CBC, ADIF F, ANEU, BMP, GFR, APTT, PRO, TROPI ####[place] [id number] Monocyte, Abs Manual 0.14 0.09-1.40 10 3/mcL Normal 8 [facility]) (63855) Comment: Performed By: #### CBC, ADIF F, ANEU, BMP, GFR, APTT, PRO, TROPI ####[place] [address] Neutrophil %, Manual 49.0 50.0-75.0 % Low 8 [facility] ([place]) ([address]64) Comment: Performed By: #### CBC, ADIF F, ANEU, BMP, GFR, APTT, PRO, TROPI ####[place] [address] Neutrophil, Abs Manual 1.72 2.25-8.10 10 3/mcL Low 018 [facility] ([place]) (97245) Comment: Performed By: #### CBC, ADIF F, ANEU, BMP, GFR, APTT, PRO, TROPI ####[address] [address] .gfr on 2017-06-26 GFR Non- >60 Normal 06-26 [facility] ([place]) (01521) Comment: Result Comment: GFR Populati on mean for , Non- Americans Ages 20-29 = 116 m L/min/1.73 sq.m. Ages 30-39 = 107 mL/min/1.73 sq.m. Ages 40-49 = 99 mL/min /1.73 sq.m. Ages 50-59 = 93 mL/min/1.73 sq.m. Ages 60-69 = 85 mL/min/1.73 sq.m. Ages 70+ = 75 mL/min/1.73 sq.m.Chronic Kidney Disease: Less than 60 mL/min/1.73 square metersEnd Stage Renal Disease: Less than 15 mL/min /1.73 square meters Performed By: #### CBC, ADIF F, ANEU, BMP, GFR, APTT, PRO, TROPI ####[address] [address] GFR >60 Normal 8 [facility] ([place]) (44672) Comment: Result Comment: GFR Populati on mean for , Non- Americans Ages 20-29 = 116 m L/min/1.73 sq.m. Ages 30-39 = 107 mL/min/1.73 sq.m. Ages 40-49 = 99 mL/min /1.73 sq.m. Ages 50-59 = 93 mL/min/1.73 sq.m. Ages 60-69 = 85 mL/min/1.73 sq.m. Ages 70+ = 75 mL/min/1.73 sq.m.Chronic Kidney Disease: Less than 60 mL/min/1.73 square metersEnd Stage Renal Disease: Less than 15 mL/min /1.73 square meters Performed By: #### CBC, ADIF F, ANEU, BMP, GFR, APTT, PRO, TROPI ####[place] [address] xr chest 1 view on 2017 XR CHEST 1 VIEW ORIGINALXR CHEST 1 VIEW, Normal 2017 [facility] 2017 2:39 PM Fo undation ([place]) INDICATION: chest pain/SOB (94516) COMPARISON: 03 August 2008 FINDINGS: The lungs and pleural spaces are clear. The cardiac silhouette is within normal size limits. The pulmonary vasculature is normal in appearance IMPRESSION: Clear lungs. Interpreted By: Jose Juan Mares MDPreliminary Report By: Jose Juan Mares MDElectronically Signed By: Jose Juan Mares MD Dictated Date: 2017 2:41:44 PM Prelim Date: 2017 2:41:44 PM Sign Date: 2017 2:41:55 PM tropi on 2017 Troponin I.cardiac <0.015 0.000-0.040 ng/mL Normal 8 [facility] ([place]) ([id number]) Comment: Result Comment: Troponin I r eference ranges (02/16/14): 0.00-0.040 ng/mL Negative and non-diagnostic. >0.040 ng/mL Consistent with cardiac damage, increased clinical risk and possibility of myocardial infarction. Serial measurements, a rise & fall in test results, clinical history, appropriate symptoms and/or ECG changes may help assess possibility of CO. *Other non-acute coronary syndrome conditions such as CHF, myocarditis, pulmonary emboli, sepsis and cardiac s urgery could result in myocardial damage and increased troponin levels. Performed By: #### CBC, ADIF F, ANEU, BMP, GFR, APTT, PRO, TROPI ####[facility] [place] [id number] pro on 2017 INR Coag RelTime (PPP) 0.9 ratio Normal 018 [facility] ([place]) (83259) Comment: Result Comment: [employer] (CHEST, 1991, 102:312S-25S)recommended the rapeutic range for oral anticoagulant therapy is:LOW RISK: Prophylaxis of venous thrombosis INR: 2.0-3.0 Treatment of pulmonary embolism 2.0-3.0 P revention of systemic embolism 2.0-3.0HIGH RISK: Mechanical prosthetic valves 2.5-3.5 Performed By: #### CBC, ADIF F, ANEU, BMP, GFR, APTT, PRO, TROPI ####[place] [id number] [place] [id number] Prothrombin time (PT) 10.9 9.0-14.5 seconds Normal 06-25-19 18 [facility] Coag time (PPP) [facility] ([place]) (17940) Comment: Result Comment: Effective , Protime results may be affected by some antibiotics (i.e. Ciprofloxa nikki, Azithromycin, Bactrim) which may potentiate the action of oral anticoagu lants, with further increases in Protime/INR. Performed By: #### CBC, ADIF F, ANEU, BMP, GFR, APTT, PRO, TROPI ####[place] [id number] [place] [phone] history and physical on 2017 History and Physical Normal 8 [facility] ([place]) (13133) ed note-provider on 2017 Protein mass conc Normal 2017 [facility] ([place]) (50440) ct head or brain w/o contrast on 2017 CT HEAD OR BRAIN ORIGINALHead CT 2017 2:52 No rmal 2017 [facility] W/O CONTRAST PM INDICATION: change in [facility] ([place]) mental status/weakness/aphasia (75289) COMPARISON: No TECHNIQUE: Routine non-contrast head CT. This exam was performed according to our departmental dose optimization program, and includes the following measures where applicable: automated exposure control, adjustment of the mAs and/or kVp according to patient size and/or exam, and an iterative reconstruction algorithm. FINDINGS: The ventricles and sulci are normal in size and configuration. There is no shift of midline structures. There are no abnormal intra or extra-axial fluid collections. There is mild irregular decreased attenuation in the white matter of the dash radiata and centrum semiovale. More-white matter differentiation is maintained. The paranasal sinuses and mastoid air cells are clear. The calvaria and the bones of the base of the skull are intact. Examination was performed within 24 hours of presentation to the hospital. IMPRESSION: Mild white matter changes; no acute findings. Interpreted By: Jose Juan Maresreliminary Report By: Jose Juan Mares MDElectronically Signed By: Jose Juan Mares MD Dictated Date: 2017 2:55:30 PM Prelim Date: 2017 2:55:30 PM Sign Date: 2017 2:56:49 PM cbc on 2017 Erythrocyte distribution 15.0 11.5-15.5 % Normal 06-25 [facility] width Auto Ratio (RBC) [facility] ([place]) (35492) Comment: Performed By: #### CBC, ADIF F, ANEU, BMP, GFR, APTT, PRO, TROPI ####[address] [address] Hematocrit Auto Volume 44.7 34.0-46.0 % Normal 018 [facility] Fraction (Bld) ([place]) (21713) Comment: Performed By: #### CBC, ADIF F, ANEU, BMP, GFR, APTT, PRO, TROPI ####[place] [id number] [place] [address] Hemoglobin mass conc 15.0 12.0-16.0 G/dL Normal 8 [facility] (Bld) [facility] ([place]) (42330) Comment: Performed By: #### CBC, ADIF F, ANEU, BMP, GFR, APTT, PRO, TROPI ####[address] [address] MCH Auto Entitic mass 31.1 27.0-33.0 pg Normal 06-25-19 18 [facility] (RBC) ([place]) (0000 0) Comment: Performed By: #### CBC, ADIF F, ANEU, BMP, GFR, APTT, PRO, TROPI ####[place] [address] MCHC Auto mass conc 33.4 32.0-36.0 G/dL Normal 2017 [facility] (RBC) ([place]) (0000 0) Comment: Performed By: #### CBC, ADIF F, ANEU, BMP, GFR, APTT, PRO, TROPI ####[place] [address] MCV Auto Entitic volume 93.1 80.0-99.0 fL Normal 2017 [facility] (RBC) ([place]) (0000 0) Comment: Performed By: #### CBC, ADIF F, ANEU, BMP, GFR, APTT, PRO, TROPI ####[place] [address] Platelet mean volume Auto 8.3 6.6-10.5 fL Normal 06-11 [facility] Entitic volume ([facility]) ([place]) (72312) Comment: Performed By: #### CBC, ADIF F, ANEU, BMP, GFR, APTT, PRO, TROPI ####[place] [address] Platelets Auto #/vol 138 150-450 10 3/mcL Low 8 [facility] (d) ([place]) (0000 0) Comment: Performed By: #### CBC, ADIF F, ANEU, BMP, GFR, APTT, PRO, TROPI ####[place] [address] RBC Auto #/vol 4.80 4.10-5.30 10 6/mcL Normal 2017 [facility] (d) [facility] ([place]) (68674) Comment: Performed By: #### CBC, ADIF F, ANEU, BMP, GFR, APTT, PRO, TROPI ####[address] [address] WBC Auto #/vol 4.50 4.50-10.80 10 3/mcL Normal 2017 [facility]) (80287) Comment: Performed By: #### CBC, ADIF F, ANEU, BMP, GFR, APTT, PRO, TROPI ####[place] [address] bmp on 2017 Calcium mass conc 9.8 8.4-10.1 mg/dL Normal 2017 [facility] ([place]) (29604) Comment: Performed By: #### CBC, ADIF F, ANEU, BMP, GFR, APTT, PRO, TROPI ####[place] [address] Chloride molar conc 104 98-110 mEq/L Normal 2017 [facility] ([place]) (90877) Comment: Performed By: #### CBC, ADIF F, ANEU, BMP, GFR, APTT, PRO, TROPI ####[place] [address] CO2 molar conc 29 22-32 mEq/L Normal 2017 [facility]) (20271) Comment: Performed By: #### CBC, ADIF F, ANEU, BMP, GFR, APTT, PRO, TROPI ####[place] [address] Creatinine mass conc 0.67 0.50-1.20 mg/dL Normal 8 [facility] ([place]) (0000 0) Comment: Performed By: #### CBC, ADIF F, ANEU, BMP, GFR, APTT, PRO, TROPI ####[place] [address] Electrolyte Balance 7.0 4.0-15.0 mEq/L Normal 2017 [facility] ([place]) (0000 0) Comment: Performed By: #### CBC, ADIF F, ANEU, BMP, GFR, APTT, PRO, TROPI ####[place] [address] Glucose mass conc 86 82-115 mg/dL Normal 2017 [facility] ([place]) (07745) Comment: Performed By: #### CBC, ADIF F, ANEU, BMP, GFR, APTT, PRO, TROPI ####[place] [address] Potassium molar conc 4.1 3.5-5.0 mEq/L Normal 8 [facility] ([place]) (0000 0) Comment: Performed By: #### CBC, ADIF F, ANEU, BMP, GFR, APTT, PRO, TROPI ####[place] [address] Sodium molar conc 140 136-145 mEq/L Normal 2017 [facility] ([place]) (62558) Comment: Performed By: #### CBC, ADIF F, ANEU, BMP, GFR, APTT, PRO, TROPI ####[place] [address] Urea nitrogen mass conc 12.0 8.0-22.0 mg/dL Normal 2017 [facility] ([place]) (39144) Comment: Performed By: #### CBC, ADIF F, ANEU, BMP, GFR, APTT, PRO, TROPI ####[place] [address] Urea nitrogen/Creatinine 17.9 10.0-22.0 ratio Normal 06-25 [facility] ratio [facility]atio n ([place]) (07689) Comment: Performed By: #### CBC, ADIF F, ANEU, BMP, GFR, APTT, PRO, TROPI ####[place] [address] aptt on 2017 aPTT Coag time (Bld) None Normal 8 [facility] ([place]) (05461) Comment: Result Comment: per Pauly Performed By: #### CBC, ADIF F, ANEU, BMP, GFR, APTT, PRO, TROPI ####[place] [address] aPTT Coag time (Bld) 30.6 25.0-35.0 seconds Normal 8 [facility] ([place]) (03900) Comment: Result Comment: For Heparin anticoagulation therapy, the recommendedtherapeutic range is: 54-77 seconds (APTT Correlationwith Anti-Xa therapeutic range of 0.3-0.7 units/ml).PLEASE REFERENCE THE PHARMACY PROTOCOL FOR DOSING. Performed By: #### CBC, ADIF F, ANEU, BMP, GFR, APTT, PRO, TROPI ####[place] [address] .neuabs on Neutrophil, Absolute 2.10 2.25-8.10 10 3/mcL Low 8 [facility] ([place]) (0000 0) Comment: Performed By: #### CBC, ADIF F, ANEU, BMP, GFR, APTT, PRO, TROPI ####[place] [address] .gfr on 2017 GFR >60 Normal 8 [facility] ([place]) (82356) Comment: Result Comment: GFR Populati on mean for , Non- Americans Ages 20-29 = 116 m L/min/1.73 sq.m. Ages 30-39 = 107 mL/min/1.73 sq.m. Ages 40-49 = 99 mL/min /1.73 sq.m. Ages 50-59 = 93 mL/min/1.73 sq.m. Ages 60-69 = 85 mL/min/1.73 sq.m. Ages 70+ = 75 mL/min/1.73 sq.m.Chronic Kidney Disease: Less than 60 mL/min/1.73 square metersEnd Stage Renal Disease: Less than 15 mL/min /1.73 square meters Performed By: #### CBC, ADIF F, ANEU, BMP, GFR, APTT, PRO, TROPI ####[place] [id number] GFR Non- >60 Normal 06-25 [facility] ([place]) (55099) Comment: Result Comment: GFR Populati on mean for , Non- Americans Ages 20-29 = 116 m L/min/1.73 sq.m. Ages 30-39 = 107 mL/min/1.73 sq.m. Ages 40-49 = 99 mL/min /1.73 sq.m. Ages 50-59 = 93 mL/min/1.73 sq.m. Ages 60-69 = 85 mL/min/1.73 sq.m. Ages 70+ = 75 mL/min/1.73 sq.m.Chronic Kidney Disease: Less than 60 mL/min/1.73 square metersEnd Stage Renal Disease: Less than 15 mL/min /1.73 square meters Performed By: #### CBC, ADIF F, ANEU, BMP, GFR, APTT, PRO, TROPI ####[address] [address] .auto diff on 06-25 Ammonia mass conc 0.30 0.09-1.40 10 3/mcL Normal 2017 [facility] () [facility]) (58829) Comment: Performed By: #### CBC, ADIF F, ANEU, BMP, GFR, APTT, PRO, TROPI ####[place] [address] Basophils Auto #/vol 0.00 0.00-0.27 10 3/mcL Normal 8 [facility] ([facility]) [facility]) (60112) Comment: Performed By: #### CBC, ADIF F, ANEU, BMP, GFR, APTT, PRO, TROPI ####[place] [address] Basophils/100 WBC Auto (d) 0.2 0.0-2.5 % Normal 0 2017 [facility] ([place]) (0000 0) Comment: Performed By: #### CBC, ADIF F, ANEU, BMP, GFR, APTT, PRO, TROPI ####[place] [address] Eosinophils Auto #/vol 0.20 0.00-0.65 10 3/mcL Normal 018 [facility]) (68796) Comment: Performed By: #### CBC, ADIF F, ANEU, BMP, GFR, APTT, PRO, TROPI ####[address] [address] Eosinophils/100 WBC Auto 3.7 0.0-6.0 % Normal 06-25 [facility]) (62210) Comment: Performed By: #### CBC, ADIF F, ANEU, BMP, GFR, APTT, PRO, TROPI ####[address] [address] Lymphocytes Auto #/vol 1.90 0.90-4.32 10 3/mcL Normal 018 [facility]) (25250) Comment: Performed By: #### CBC, ADIF F, ANEU, BMP, GFR, APTT, PRO, TROPI ####[address] [address] Lymphocytes/100 WBC Auto 42.1 20.0-40.0 % High 06-25 [facility]) (19173) Comment: Performed By: #### CBC, ADIF F, ANEU, BMP, GFR, APTT, PRO, TROPI ####[address] [address] Monocytes/100 WBC Auto ([facility]) 6.4 2.0-13.0 % Normal 0 2017 [facility]) (45963) Comment: Performed By: #### CBC, ADIF F, ANEU, BMP, GFR, APTT, PRO, TROPI ####[address] [address] Neutrophils/100 WBC Auto 47.6 50.0-75.0 % Low 06-25 [facility]) (84332) Comment: Performed By: #### CBC, ADIF F, ANEU, BMP, GFR, APTT, PRO, TROPI ####[address] [address] Encounters Date Type Reason Provider Location 01-09-2018 Patient encounter AGUSTIN PENA Located Within [facility] ity:A MIKO AVILA 2017 - Patient encounter MIKO AVILA Facility: A 06-26-2017 YANN POWELL 03-22-2020 Patient encounter Esophageal YANN Alcala ziyad procedure disorders [facility]ital E SCAR (36931) YANN Riley SCARNADIA AVILA UNKNOWN PROVIDER UNKNOWN PROVIDER UNKNOWN PROVIDER 03-12-2020 Patient encounter ACHAL JOHNNY Abdias [place] procedure [facility] ital LOCATED WITHIN [facility] JOHNNY (09775) MIKO AVILA UNKNOWN PROVIDER UNKNOWN PROVIDER UNKNOWN PROVIDER 03-12-2020 - Patient encounter ACHAL JOHNNY Abdias [place] 03-12-2020 procedure [facility] ital LOCATED [facility]IN [facility] J[facility]NNY (12530) MIKO AVILA UNKNOWN PROVIDER UNKNOWN PROVIDER UNKNOWN PROVIDER 12-11-2019 - [facility] [place] 12-11-2019 [facility] ital LOCATED [facility]IN [facility] J[facility]NN[facility] (73950) MIKO AVILA UNKNOWN PROVIDER UNKNOWN PROVIDER UNKNOWN PROVIDER 11-26-2019 - Patient encounter YANN giraldo 11-26-[address] [facility] (87024) MIKO AVILA UNKNOWN PROVIDER UNKNOWN PROVIDER UNKNOWN PROVIDER 10-09-2019 - Patient encounter MIKO Calero [place] 10-09-2019 [address] [facility] MIKO [facility] (04873) MIKO AVILA UNKNOWN PROVIDER UNKNOWN PROVIDER UNKNOWN PROVIDER 05-30-2019 - [facility] [place] 05-30-2019 procedure [facility] ital LOCATED [facility]IN [facility] JOHNNY (07098) MIKO AVILA UNKNOWN PROVIDER UNKNOWN PROVIDER UNKNOWN PROVIDER 03-04-2020 - Telephone Yann Diallo [facility] in 03-04-2020 encounter [facility] [place] Comment: Rx Refills (Gabapentin) Procedures Procedure Name Date Provider Location Mammography 12-05-2019 [facility] (10539) Colonoscopy 04-08-2015 [facility] (64704) Plan of Treatment Plan Description Date Location DTAP,TDAP,TD (3 - Td) DTAP,TDAP,TD (3 - Td) 08-04-2021 [facility] (18381) MAMMOGRAM MAMMOGRAM 12-04-2020 [facility] (94499) COLONOSCOPY COLONOSCOPY 04-08-2020 [facility] (32939) INFLUENZA (#1) INFLUENZA (#1) 2020 [facility] (23454) ADVANCE DIRECTIVE ADVANCE DIRECTIVE 2019 [facility] inic DISCUSSION DISCUSSION (23694) BONE DENSITY BONE DENSITY 2019 [facility] (39793) PNEUMOVAX AGE 65 AND OVER PNEUMOVAX AGE 65 AND OVER 2019 [facility] WITH 5YR LOOKBACK (#1) WITH 5YR LOOKBACK (#1) (4 3708) DIABETES SCREEN DIABETES SCREEN 07-14-2014 [facility] (25218) LIPID SCREEN LIPID SCREEN 02-18-2014 [facility] (69717) SHINGRIX VACCINE (1 of 2) SHINGRIX VACCINE (1 of 2) 2004 [facility] (99872) HEPATITIS C SCREENING HEPATITIS C SCREENING 1972 [facility] (02271) HIV SCREENING HIV SCREENING 1972 [facility] (71934) Immunizations Vaccine Notes Status Date Location DT(PEDIATRIC) diphtheria and tetanus (completed) 01-07-2003 [facility] toxoids, adsorbed for (70994 ) pediatric use Influenza Vaccine, influenza virus vaccine, (completed) 03-14-2011 [facility] Split-Non Spec unspecified formulation (4 4455) Influenza Vaccine, influenza virus vaccine, (completed) 03-23-2010 [facility] Split-Non Spec unspecified formulation (4 4385) Pneumovax pneumococcal (completed) 05-11-2010 [facility] polysaccharide vaccine, (441 95) 23 valent Pneumovax pneumococcal (completed) 03-25-2008 [facility] polysaccharide vaccine, (441 95) 23 valent Tdap (Age 7+) tetanus toxoid, reduced (completed) 08-04-2011 [facility] diphtheria toxoid, and (4419 5) acellular pertussis vaccine, adsorbed Payers Payer Name Policy Number Location MEDICARE OUTPATIENT [id number] [facility] (42419) [employer] MEDICARE [id number] [facility] ([place]) (07977) [facility] MEDICARE [id number] [facility] (02615) [id number] [facility] ([id number]) [id number] [facility] ([id number]) [id number] [facility] ([id number]) [id number] [facility] (52690) [id number] [facility] ([id number]) [id number] [facility] (62588) [id number] [facility] (09584) The following information is from the original human readable contentNo Payer Records FoundNo Payer Records FoundNo Payer Records FoundNo Payer Records FoundNo Payer Records FoundNo Payer Records FoundNo Payer Records FoundNo Payer Records FoundNo Payer Records FoundNo Payer Records FoundNo Payer Records Found Social History Type Social History Description Date Locat ion Tobacco smoking status Never smoker 12-19-2019 [facility] (06570) NHIS Tobacco use and exposure Never used 12-19-[address] [facility] (98132) Alcohol intake Current non-drinker of 12-19-2019 [facility] (46283) alcohol (finding) Sex Assigned At Not on file [facility] (89926) The following information is from the original human readable contentNo Social History Records FoundNo Social History Records FoundNo Social History Records FoundNo Social History Records FoundNo Social History Records FoundNo Social History Records FoundNo Social History Records FoundNo Social History Records FoundNo Social History Records FoundNo Social History Records FoundNo Social History Records FoundNo Social History Records FoundNo Social History Records FoundNo Social History Records FoundNo Social History Records Found Summary Purpose Family History No Family History Records FoundNo Family History Records FoundNo Family History Records FoundNo Family History Records FoundNo Family History Records FoundNo Family History Records FoundNo Family History Records FoundNo Family History Records Found Advance Directives No Advanced Directives Records Found Documents on File Type Date Recorded 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 Guevara is a 63 year old female who presents for evaluation of intermittent left breast swelling. She is status post left breast duct exci sional biopsy on 05/22/2018 for new onset nipple inversion and negative imaging. Final pathology showed duct ectasia. Today, there is no sign of infection or seroma on clinical exam. She should use cold compresses, wear a s ports bra, and call if it doesn't improve in the next 1-2 months. Otherwise, I will see her back at her pr eviously scheduled appointment. Family history of colon cancer 04/08/2015 5 Additional Source Comments FOR RECORDS PERTAINING TO PATIENTS WHO ARE OR HAVE BEEN ENROLLED IN A CHEMICAL DEPENDENCY/SUBSTANCE ABUSE PROGRAM, SOME INFORMATION MAY BE OMITTED. This clinical summary was aggregated from multiple sources. Caution should be exercised in using it in the provision of clinical care. This summary normalizes information from multiple sources, and as a consequence, information in this document may materially changethe coding, format and clinical context of patient data. In addition, data may be omittedin some cases. CLINICAL DECISIONS SHOULD BE BASED ON THE PRIMARY CLINICAL RECORDS. [facility] provides no warranty or guarantee of the accuracy or completeness of information in this document. UNRECOGNIZED CONTENT PROVIDED BELOW FOR UNRECOGNIZED SECTION INFORMATION SOURCE DATE CREATED AUTHOR AUTHOR'S ORGANIZATIO N 11/28/2017 [facility] DATE CREATED AUTHOR AUTHOR'S ORGANIZATIO N 01/09/2018 [facility] ([place]) DATE CREATED AUTHOR AUTHOR'S ORGANIZATIO N 06/03/2019 [facility] DATE CREATED AUTHOR AUTHOR'S ORGANIZATIO N 06/13/2019 [facility] DATE CREATED AUTHOR AUTHOR'S ORGANIZATIO N 12/29/2019 [facility] DATE CREATED AUTHOR AUTHOR'S ORGANIZATIO N 01/06/2020 [facility] DATE CREATED AUTHOR AUTHOR'S ORGANIZATIO N 03/06/2020 [facility] DATE CREATED AUTHOR AUTHOR'S ORGANIZATIO N 03/23/2020 [facility] UNRECOGNIZED CONTENT PROVIDED BELOW FOR UNRECOGNIZED SECTION Source Comments In the event this information is protected by the Federal Confidentiality of Alcohol and Drug Abuse Patient Records regulations: The Federal rules restrict any use of the information to criminally investigate or prosecute any alcohol or drug abuse patient.[facility] UNRECOGNIZED CONTENT PROVIDED BELOW FOR UNRECOGNIZED SECTION Reason for Visit Reason Onset Date Comments Rx Refills 03/04/2020 Gabapentin UNRECOGNIZED CONTENT PROVIDED BELOW FOR UNRECOGNIZED SECTION Miscellaneous Notes Telephone Encounter - Ruth Bonilla) - 03/05/2020 3:35 PM EDTPatient notified and verbalized understanding. PATRICIA Lafleur Telephone Encounter - Ruth Bonilla) - 03/05/2020 3:[address] Diallo unfortunately patient is a month early and we will not be able to fill this medication. Left message to call back. PATRICIA Lafleur Telephone Encounter - Ruth Bonilla) - 03/04/2020 4:07 PM EDTSpoke with patient who states she only has a week left. Verified she received last refill end of December and is taking it 3x per day. Spoke with Same at [facility] who states last refill was shipped 01/07/20. PATRICIA Lafleur Telephone Encounter - [place] - 03/04/2020 2:13 PM EDTPatient is requesting a refill of her Gabapentin be sent to [facility]. Last seen in office on . documented in this encounter
--- OUTSIDE RECORDS SUMMARY | 2020-03-23 18:09 | XMS RPT_ITS | CCD ---
:1955 External Reference #:[id number] Author Organization [employer] Care Team Providers [...] Onset Location Amoxicillin / Rash 05-04-2017 - [facility] Clavulanate (76003) Amoxicillin / Moderate (Severity Abdias Pom erene Clavulanate Mod[facility]) [facility] Iodine Swelling 11-14-2019 - [facility] (25988) Medications Medication Name Sig Date Prescriber Location Ascorbic Acid Ascorbic Acid [facility] Provider [facility] (VITAMIN C) chew Take Provider (12812 ) 500 mg by mouth once daily. 0 Active Comment: Take 500 mg by mouth once da daiana. Aspirin aspirin, enteric coated [facility] Provider [facility] (69164) (ASPIRIN, ENTERIC COATED) Provider 81 mg EC tablet Take 81 mg by mouth once daily. 0 Active Comment: Take 81 mg by mouth once tracy ly. Cholecalciferol Cholecalciferol, Vitamin 11-09-2011 Sanjay Da Silva [facility] D3, (VITAMIN D) 1,000 Sanjay Church (4 7525) unit Cap Take 1 capsule by mouth once daily. 0 11/09/2011 Active Comment: Take 1 capsule by mouth once daily. DULoxetine DULoxetine (CYMBALTA) 60 [facility] Provider [facility] (24568) mg capsule Take 60 mg by Provider mouth daily at bedtime. 0 Active Comment: Take 60 mg by mouth daily at bedtime. Etanercept etanercept(ENBREL 50 MG/ML 02-16-2010 Sonal Pimentel ([facility] ) [facility] (0.98 ML) SUB-Q SYRINGE) (Hist) Michael (98 195) takes once weekly. 0 Sonal K ([facility]) 02/16/2010 Active (Hist) Michael Comment: takes once weekly. Famotidine famotidine (PEPCID) 20 mg [facility] Provider [facility] (14926) tablet Take 40 mg by Provider mouth twice daily. 0 Active Comment: Take 40 mg by mouth twice da daiana. fluticasone fluticasone (FLONASE) 10-28-2014 [facility]cf Provider [facility] 50 mcg/actuation nasal (4419 5) spray Folic Acid FOLIC ACID 1 mg ORAL 08-08-2010 [facility]cf Provider [facility] tablet (84646) gabapentin gabapentin (NEURONTIN) 01-05-2020 - Yann Diallo [facility] 300 mg capsule 07-05-2020 Yann Diallo (93402) Indications: RLS (restless legs syndrome) Take 3 capsules daily as instructed. 270 capsule 0 01/05/2020 07/05/2020 Active Comment: Take 3 capsules daily as ins tructed. Linseed Oil flaxseed 1,000 mg cap [facility] Provider [facility] (72028) Take by mouth. 0 Active Provider Comment: Take by mouth. Loratadine loratadine (CLARITIN) 10 [facility] Provider [facility] (56789) mg tablet Take 10 mg by Provider mouth as needed. 0 Active Comment: Take 10 mg by mouth as neede d. Lovastatin lovastatin (MEVACOR) 10 [facility]cf Provider [facility] (01310) mg tablet Take 10 mg by Provider mouth daily at bedtime. 0 Active Comment: Take 10 mg by mouth daily at bedtime. MAGNESIUM GLUCONATE magnesium gluconate Ccf Provider C [facility] (MAG-G) 27 mg (500 mg) Provider (4419 5) tab Take by mouth once daily. 0 Active Comment: Take by mouth once daily. Methotrexate methotrexate 2.5 mg tablet [facility]cf Provider C [facility] Take 2.5 mg by mouth every Provider ( 98662) Sunday. 0 Active Comment: Take 2.5 mg by mouth every F riday. MULTI-VITAMIN ORAL MULTI-VITAMIN ORAL Take [facility]cf Provide r [facility] by mouth. 0 Active Provider (07333) Comment: Take by mouth. Nitroglycerin NITROSTAT 0.4 mg 07-19-2015 [facility]cf Provider [facility] SL tablet (70678) VITAMIN B COMPLEX ORAL VITAMIN B COMPLEX [facility] Provider [facility] ORAL Take by mouth Provider (33590) once daily. 0 Active Comment: Take by mouth once daily. 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 - [facility] (45844) Cardiac dysrhythmias Ventricular premature Active 02-12-2009 - [facility] beats (29555) Conduction disorders Right bundle branch Active 04-05-2015 - [facility] block (72899) Disorders of lipid Hyperlipidemia Active 04-05-2015 - [facility] metabolism (12109) Disorders of teeth and 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 (27106) Esophageal disorders Gastroesophageal reflux Active 9 - [facility] disease (82464) Headache; including Migraine without aura, Active 07-19-2017 - [facility] migraine not refractory (18977) Mood disorders Hypomania Active 02-12-2009 - [facility] (35495) Other and ill-defined Small vessel Active 07-19-2017 - [facility] cerebrovascular disease cerebrovascular disease (49240) Other gastrointestinal Irritable bowel syndrome Active 2014 - [facility] disorders with diarrhea (41762) Other hereditary and Restless legs Active 02-24-2019 - [facility] degenerative nervous (01967) system conditions Residual codes; Obstructive sleep apnea Active 04-05-2015 - [facility] unclassified syndrome (21868) Rheumatoid arthritis and Rheumatoid arthritis Active [facility] related disease (21477) Thyroid disorders Multinodular goiter Active 04-05-2015 - [facility] (73414) Transient cerebral Transient cerebral Active 04-05-2015 - [facility] ischemia ischemia (66866) Unclassified Patient encounter status Active 02-16-2009 - [facility] (46778) Past or Other Problems Category Problem Name Status Date Location Diabetes mellitus Impaired fasting Completed 02-16-2009 - [facility] without complication glycaemia (56458) Neoplasms of unspecified Neoplasm of uncertain Completed [facility] nature or uncertain behavior of skin (441 95) behavior Nonmalignant breast Inversion of nipple Completed 05-15-2018 - [facility] conditions (64236) Other bone disease and Osteopenia Completed 02-12-2009 - [facility] musculoskeletal (59530) deformities Other circulatory H/O: TIA Completed 02-24-2019 - [facility] disease (25170) Other screening for Cardiovascular stress Completed 02-12-2009 - [facility] suspected conditions test abnormal (98040 ) (not mental disorders or infectious disease) Results Result Name Value Range Unit Interpretation Flag Date Location sgpt (alt) on 03-12 ALT [Catalytic activity/Vol] 17 8 - 35 U/L Normal 1 [facility] ( 59005) Comment: Performed By: #### [id number] ## ## [facility],[address] [place] [address] sgot (ast) on 03-12 AST/SGOT 22 13 - 39 U/L Normal 03-12-2020 [facility] (06880) Comment: Performed By: #### [id number] ## ## [facility],[address] [place] [address] 70337 sedrate on SEDRATE 13 0 - 30 mm/hr Normal 03-12-2020 [facility] (85350) Comment: Performed By: #### [id number] ## ## [facility],[address] [place] [address] 95023 creatinine on 03-12 Creatinine [Mass/Vol] 0.8 0.6 - 1.2 mg/dl Normal 03-12-20 [facility] ( 96944) Comment: Performed By: #### [id number] ## ## [facility],[address] [place] [address] 27183 cbc + diff on 03-12 Basophils (Bld) 0.00 0.00 - 0.10 x10EE3/UL Normal 03-12-2020 [facility] [#/Vol] [facility] (79947) Comment: Performed By: #### [id number] ## ## [facility],[address] [place] [address] 51569 Basophils/100 WBC (Bld) 0.7 0.0 - 2.0 % Normal 2019 [facility] ( 22921) Comment: Performed By: #### [id number] ## ## [facility],[address] [place] [address] 56213 CBC + DIFF Normal 03-12-2020 [facility] (04311) Comment: Result Comment: CBC-COMPLETE BLOOD COUNT Performed By: #### [id number] ## ## [facility],[address] [place] [address] 42912 Eosinophils (Bld) 0.30 0.00 - 0.50 x10EE3/UL Normal 03-12-2020 [facility] [#/Vol] [facility] (50226) Comment: Performed By: #### [id number] ## ## [facility],[address] [place] [address] 51297 Eosinophils/100 WBC (Bld) 6.8 0.0 - 7.0 % Normal 100 [facility] ( 87507) Comment: Performed By: #### [id number] ## ## [facility],[address] [place] [address] 19393 Erythrocyte distribution 14.7 12.0 - 15.6 % Normal [facility] width (RBC) [Ratio] Hospital (78237) Comment: Performed By: #### [id number] ## ## [facility],[address] [place] [address] 63524 Hematocrit (Bld) [Volume 41.2 34.0 - 46.0 % Normal [facility]] [facility] ( 27673) Comment: Performed By: #### [id number] ## ## [facility],[address] [place] [address] 79613 Hemoglobin (Bld) 14.0 12.0 - 16.0 g/dl Normal 03-12-2020 [facility] [Mass/Vol] [facility] (94887) Comment: Performed By: #### [id number] ## ## [facility],[address] [place] [address] 66820 Lymphocytes (Bld) 1.70 0.80 - 2.80 x10EE3/UL Normal 03-12-2020 [facility] [#/Vol] [facility] (63539) Comment: Performed By: #### [id number] ## ## [facility],[address] [place] [address] 36553 Lymphocytes/100 WBC (Bld) 35.1 20.0 - 45.0 % Normal [facility] ( 50789) Comment: Performed By: #### [id number] ## ## [facility],[address] [place] [address] 74309 MANUAL DIFF N/A Normal 03-12-2020 [facility] (33597) Comment: Performed By: #### [id number] ## ## [facility],[address] [place] [address] 88678 MCH (RBC) [Entitic mass] 32 27 - 33 pg Normal 03-12 [facility] ( 41266) Comment: Performed By: #### [id number] ## ## [facility],[address] [place] [address] 54863 MCHC (RBC) [Mass/Vol] 34 32 - 36 X10 3 Normal 03-12-20 20 [facility] ( 31587) Comment: Performed By: #### [id number] ## ## [facility],[address] [place] [address] 02300 MCV (RBC) [Entitic vol] 94 80 - 99 fl Normal 2019 [facility] ( 60072) Comment: Performed By: #### [id number] ## ## [facility],[address] [place] [address] 56709 Monocytes (Bld) 0.50 0.20 - 1.00 x10EE3/UL Normal 03-12-2020 [facility] [#/Vol] [facility] (44241) Comment: Performed By: #### [id number] ## ## [facility],[address] [place] [address] 51507 MONOS % 9.7 0.0 - 10.0 % Normal 03-12-2020 [facility] (62701) Comment: Performed By: #### [id number] ## ## [facility],[address] [place] [address] 53782 Morphology Kasi (Bld) [Interp] N/A Normal 03-12-2020 [facility] ( 79808) Comment: Performed By: #### [id number] ## ## [facility],[address] [place] [address] 05676 Neutrophils (Bld) 2.30 1.50 - 7.10 x10EE3/UL Normal 03-12-2020 [facility] [#/Vol] [facility] (17888) Comment: Performed By: #### [id number] ## ## [facility],[address] [place] [address] 87750 Neutrophils/100 WBC (Bld) 47.7 46.0 - 76.0 % Normal [facility] ( 04974) Comment: Performed By: #### [id number] ## ## [facility],[address] [place] [address] 23969 Platelet mean volume 7.9 6.6 - 10.5 fl Normal 03-12-20 20 [facility] (d) [Entitic vol] [facility] (30780) Comment: Result Comment: AUTOMATED DI FFERENTIAL Performed By: #### [id number] ## ## [facility],[address] [place] [address] 17917 Platelets (Bld) 209 150 - 450 x10EE3/UL Normal 03-12-2020 [facility] [#/Vol] [facility] (53629) Comment: Performed By: #### [id number] ## ## [facility],[address] [place] [address] 79409 RBC (Bld) [#/Vol] 4.38 4.10 - 5.30 x 10EE6/UL Normal 0 [facility] (27989) Comment: Performed By: #### 601012 ## ## [facility],[address] [place] [address] 02128 WBC (Bld) [#/Vol] 4.9 4.5 - 10.8 x 10EE3/UL Normal 03-12-2020 [facility] ( 53345) Comment: Performed By: #### [id number] ## ## [facility],[address] [place] [address] 24353 c-reactive protein on 2020-03-12 CRP [Mass/Vol] <0.10 0.00 - 1.00 mg/L Normal 03-12-2020 [facility] ( 83338) Comment: Performed By: #### [id number] ## ## [facility],[address] [place] [address] 04631 bun on 2020-03-12 Urea nitrogen [Mass/Vol] 13 6 - 20 mg/dl Normal 03-12 [facility] ( 09027) Comment: Performed By: #### [id number] ## ## [facility],[address] [place] [address] 17291 albumin plasma on Albumin [Mass/Vol] 4.2 3.4 - 4.8 g/dL Normal 03-12-2020 [facility] ( 60716) Comment: Performed By: #### [id number] ## ## [facility],[address] [place] [address] 82184 cnpn on 2020-03-04 CNPN Telephone (NEURBA) Normal 03-04-2020 [place] CLAIRE Ross ([id number]) 1955 F Medical Date Time Provider Department Center 03/04/20 YANN DIALLO JR NEURBA ([id number]) During your visit today, we recorded the following informati on about you: El Prasad 03/04/2020 2:14 PM Signed Patient is requesting a refill of her Gabapentin be se nt to [facility]. Last seen in office on 12/15/19. PATRICIA Lafleur 03/04/2020 4:09 PM Signed Spoke with patient who states she only has a wee k left. Verified she received last refill end of December and is taking it 3x per day. Spoke with Same at [facility] who s tates last refill was shipped [...] - Swelling Date Reviewed: 12/19/2019 Reviewed by: Masah San - Fully Assessed Reason for Visit: [...] 2019-12 OBSOLETE Refill (NEMOWS) [facility]05-2020 [facility] ([id number]) 1955 [facility] Date Time Provider Department (06926) 01/05/20 YANN DIALLO JR During your visit [...] 01/05/20 progress on 2019-12 PROGRESS HNO ID: [id number] Normal 12-19-2019 [facility] Author: Masha San [facility] Service: ? (50795) Author Type: Physician Type: Progress Notes Filed: 12/19/2019 11:06 AM Note Text: Masha San MD [facility] [address] [place], [place] [id number] SUBJECTIVE Chief Complaint: Patient presents with: Yearly [...] CHOLECYSTECTOMY 2012 - COLONOSCOP W/ OR W/O [facility] SPEC 08/13 Colonoscopy - COLONOSCOP W/ OR W/O [facility] SPEC 04/03/13 Colonoscopy - COLONOSCOP W/ OR W/O [facility] SPEC 04/08/15 Colonoscopy - EGD W/O OR W/BRUSH/WASH 04/03/13 EGD - FOOT LEFT OP SURGERY 06/2014 - HEART CATHETERIZATION 08/04/08 AND 10/2013 Normal Heart Cath --- [facility], Dr. Pena - LAPAROSCOPIC CHOLEYCYSTECTOMY 09/11 [...] monthly breast awareness and call with a dc concerns. Follow up: Return if symptoms worsen or fail to improve. Masha San MD 12/19/2019 11:03 AM hemogram on 2019-12 Erythrocyte distribution 14.2 11.7-14.4 % Normal 12-18 [facility] width (RBC) [Ratio] System (39099) Comment: Performed By: #### CBC1 #### [address] [address] Hematocrit (Bld) [Volume 41.9 34.1-44.9 % Normal 12-18 [facility] fraction] System (00 000) Comment: Performed By: #### CBC1 #### [address] [address] Hemoglobin (Bld) 13.8 11.2-15.7 g/dL Normal 12-19-2019 [facility] [Mass/Vol] System (0 0000) Comment: Performed By: #### CBC1 #### [facility] [address] [place], [place] [address] MCH (RBC) [Entitic mass] 31.4 25.6-32.2 pg Normal 12-18 [facility] (00 000) Comment: Performed By: #### CBC1 #### [facility] [address] [place], [place] [address] MCHC (RBC) [Mass/Vol] 32.9 31.6-34.8 % Normal 12-19-19 20 [facility] (38615) Comment: Performed By: #### CBC1 #### [facility] [address] [place], [place] [address] MCV (RBC) [Entitic vol] 95.2 79.4-94.8 fl High 2019 [facility] (13872) Comment: Performed By: #### CBC1 #### [facility] [address] [place], [place] [address] Platelet mean volume (Bld) 10.0 9.4-12.3 fl Normal [facility] [Entitic vol] System (88017) Comment: Performed By: #### CBC1 #### [facility] [address] [place], [place] [address] Platelets (Bld) [#/Vol] 186 182-369 thou/cmm Normal 2019 [facility] (00 000) Comment: Performed By: #### CBC1 #### [facility] [address] [place], [place] [address] RBC (Bld) [#/Vol] 4.40 3.93-5.22 mil/cmm Normal 12-19-2019 [facility] (00 000) Comment: Performed By: #### CBC1 #### [facility] [address] [place], [place] [address] RDW SD 48.8 36.4-46.3 fl High 12-19-2019 [facility] (66328) Comment: Performed By: #### CBC1 #### [address] [address] WBC (Bld) [#/Vol] 4.86 3.98-10.04 thou/cmm Normal 12-19-2019 [facility] (00 000) Comment: Performed By: #### CBC1 #### [address] [address] cnov on 2019-12-19 CNOV Office Visit (AGGBRCR) Normal 12-18-2 020 [facility] CLAIRE GUEVARA ([id number]) 1955 F Medical Date Time Provider Department Center 12/19/19 11:00 AM MASHA SAN [facility] ([id number]) During your visit today, we recorded the following informati on about you: Pulse Blood pressure Weight Height 91/minute 117/84 60.8 kg 1.626 m Rani Skinner RN 12/19/2019 10:56 AM Signed Denies any new palpable masses skin changes or p ain. Mammogram of 12/05/19 was negative PEDRO LUIS Jacobs MD 12/19/2019 11:06 AM Signed Masha San MD [facility] [address] [place] [address] SUBJECTIVE Chief Complaint: Patient presents with: Yearly [...] CHOLECYSTECTOMY 2012 - COLONOSCOP W/ OR W/O [facility] SPEC 08/13 Colonoscopy - COLONOSCOP W/ OR W/O [facility] SPEC 04/03/13 Colonoscopy - COLONOSCOP W/ OR W/O [facility] SPEC 04/08/15 Colonoscopy - EGD W/O OR W/BRUSH/WASH 04/03/13 EGD - FOOT LEFT OP SURGERY 06/2014 - HEART CATHETERIZATION 08/04/08 AND 10/2013 Normal Heart Cath --- [facility], Dr. Pena - LAPAROSCOPIC CHOLEYCYSTECTOMY 09/11 [...] monthly breast awareness and call with a dc concerns. Follow up: Return if symptoms worsen [...] a ny concerns. Referring Provider: MIKO AVILA [[id number]] Allergies As of Date: 12/19/2019 Noted Allergy [...] 12/19/19 progress on 2019-12 PROGRESS HNO ID: [id number] Normal 12-15-2019 [facility] Author: Yann Diallo Jr. [facility] Service: ? [facility] Author Type: Physician ([id number]) Type: Progress Notes Filed: 12/15/2019 6:08 PM [...] for neuro follow up after hospitalization at [facility]. Notes reviewed . Per record: Since pt was last seen pt was admitted at [facility] f or ? TIA. [place] records reviewed. Pt had experienced numbness and [...] the start of Plavix. Records reviewed from [place]. MRI, MRA negative, LDL 104. Hemoglobi n A1c 5.7. She does follow with cardiology. . I will order an echo. Las t echo on record was from 2018. Patient agrees and will follow-up with Dr. Diallo in [place] in 6-8 weeks. States now having problems [...] history. She did have sleep study at [place] 2 weeks ago. I do no t [...] No - Drug use: No PHYSICAL EXAMINATION [facility] 04/11/2005 GENERAL EXAM: General appearance: NAD, pleasant. [...] that OSH sleep lab indicated not sleep weight yardage checker ea on PSG. Records requested to verify. [...] with more than 50% of the total zxyl-ri-naqh time of the visit in counseling / coordination of care. PDMP website checked and validated. All prescriptions have b een APPROPRIATELY filled. No suspicious activity was identified. 12/15/2019 by MD petey Carter on 2019-12-15 CNOV Office Visit (FERNANDO) Normal 12-15-[address] [place] [address] Alberto GUEVARACLAIRE Antoine ([id number]) 1955 [facility] Date Time Provider Department (03116) 12/15/19 4:40 PM YANN DIALLO JR During [...] r neuro follow up after hospitalization at [facility]. Notes reviewed. P er record: Since pt was last seen pt was admitted at [facility] for ? TIA. [place] records reviewed. Pt had exp erienced numbness [...] the start of Plavix. Records reviewed from [place]. MRI, MRA negative, LDL 104. Hemoglobin A1c 5.7. She does follow with cardiology. . I will order an echo. Last echo on record was from 2018. Patient agrees and will follow-up with Dr. Diallo in [place] in 6-8 weeks. States now having problems [...] history. She did have sleep study at [place] 2 weeks ago. I do not have [...] with more than 50% of the total dkav-kx-fugb time of the visit in counseling / coordination of care. PDMP website checked and validated. All prescrip tions have been APPROPRIATELY filled. No suspicious activity was ident ified. 12/15/2019 by Yann Diallo MD Referring Provider: YANN DIALLO JR [[id number]] Allergies As of Date: 12/15/2019 Noted Allergy Reaction AUGMENTIN (AMOXICILLIN-POT CLAVUL*05/04/2017 2 - Rash CONTRAST DYE (IODINE) 11/14/2019 7 - Swelling Date Reviewed: 12/15/2019 Reviewed by: Yann Diallo Jr. - Fully Assessed Reason for Visit: Established Patient [175] Cmt: [facility] Primary Visit Diagnosis:Transient cerebral ische rosanne, unspecified type [G45.9] Other Visit Diagnoses:Obstructive sleep apnea (adult) (pedia tric) [G47.33] RLS (restless legs syndrome) [G25.81] Cognitive impairment [R41.89] Order(s):CBC [SQCB] Order #: [id number] FUTURE CONSULT TO NEUROPSYCH [[id number]] Order #: [id number]: 1 FU TURE gabapentin (NEURONTIN) 300 mg [...] 8 - 35 U/L Normal 0 12-11-2019 [facility] ( 23753) Comment: Performed By: #### [id number] ## ## [place] [id number] sgot (ast) on 12-10 AST/SGOT 26 13 - 39 U/L Normal 12-11-2019 [facility] (38278) Comment: Performed By: #### [id number] ## ## [address] [address] sedrate on SEDRATE 14 0 - 30 mm/hr Normal 12-11-2019 [facility] (20022) Comment: Performed By: #### [id number] ## ## [address] [address] creatinine on 12-10 Creatinine [Mass/Vol] 0.8 0.6 - 1.2 mg/dl Normal 12-11-19 [facility] ( 31393) Comment: Performed By: #### [id number] ## ## [facility],[address] [place] [address] 88814 cbc + diff on 12-10 Basophils (Bld) 0.00 0.00 - 0.10 x10EE3/UL Normal 12-11-2019 [facility] [#/Vol] [facility] (71865) Comment: Performed By: #### [id number] ## ## [facility],[address] [place] [address] 95198 Basophils/100 WBC (Bld) 0.7 0.0 - 2.0 % Normal 2019 [facility] ( 60084) Comment: Performed By: #### [id number] ## ## [facility],[address] [place] [address] 39818 CBC + DIFF Normal 12-11-2019 [facility] (28191) Comment: Result Comment: CBC-COMPLETE BLOOD COUNT Performed By: #### [id number] ## ## [facility],[address] [place] [address] 52316 Eosinophils (Bld) 0.20 0.00 - 0.50 x10EE3/UL Normal 12-11-2019 [facility] [#/Vol] [facility] (26329) Comment: Performed By: #### [id number] ## ## [facility],[address] [place] [address] 31687 Eosinophils/100 WBC (Bld) 5.2 0.0 - 7.0 % Normal [facility] ( 90104) Comment: Performed By: #### [id number] ## ## [facility],[address] [place] [address] 27357 Erythrocyte distribution 14.4 12.0 - 15.6 % Normal [facility] (RBC) [Ratio] [facility] (93384) Comment: Performed By: #### [id number] ## ## [facility],[address] [place] [address] 41791 Hematocrit (Bld) [Volume 40.8 34.0 - 46.0 % Normal [facility] ( 90153) Comment: Performed By: #### [id number] ## ## [facility],[address] [place] [address] 00279 Hemoglobin (Bld) 14.0 12.0 - 16.0 g/dl Normal 12-11-2019 [facility] [Mass/Vol] [facility] (93177) Comment: Performed By: #### [id number] ## ## [facility],[address] [place] [address] 48583 Lymphocytes (Bld) 1.60 0.80 - 2.80 x10EE3/UL Normal 12-11-2019 [facility] [#/Vol] [facility] (94998) Comment: Performed By: #### [id number] ## ## [facility],[address] [place] [address] 27049 Lymphocytes/100 WBC (Bld) 36.5 20.0 - 45.0 % Normal [facility] ( 06246) Comment: Performed By: #### [id number] ## ## [facility],[address] [place] [address] 24573 MANUAL DIFF N/A Normal 12-11-2019 [facility] (05985) Comment: Performed By: #### [id number] ## ## [facility],[address] [place] [address] 30131 MCH (RBC) [Entitic mass] 32 27 - 33 pg Normal 12-10 [facility] ( 41213) Comment: Performed By: #### [id number] ## ## [facility],[address] [place] [address] 54750 MCHC (RBC) [Mass/Vol] 34 32 - 36 X10 3 Normal 12-11-19 20 [facility] ( 40174) Comment: Performed By: #### [id number] ## ## [facility],[address] [place] [address] 36580 MCV (RBC) [Entitic vol] 94 80 - 99 fl Normal 2019 [facility] ( 29158) Comment: Performed By: #### [id number] ## ## [facility],[address] [place] [address] 45795 Monocytes (Bld) 0.40 0.20 - 1.00 x10EE3/UL Normal 12-11-2019 [facility] [#/Vol] [facility] (62143) Comment: Performed By: #### [id number] ## ## [facility],[address] [place] [address] 82994 MONOS % 9.8 0.0 - 10.0 % Normal 12-11-2019 [facility] (51919) Comment: Performed By: #### [id number] ## ## [facility],[address] [place] [address] 32302 Morphology Kasi (Bld) [Interp] N/A Normal 12-11-2019 [facility] ( 65885) Comment: Performed By: #### [id number] ## ## [facility],[address] [place] [address] 71844 Neutrophils (Bld) 2.10 1.50 - 7.10 x10EE3/UL Normal 12-11-2019 [facility] [#/Vol] [facility] (33013) Comment: Performed By: #### [id number] ## ## [facility],[address] [place] [address] 55937 Neutrophils/100 WBC (Bld) 47.8 46.0 - 76.0 % Normal [facility] ( 54551) Comment: Performed By: #### [id number] ## ## [facility],[address] [place] [address] 56416 Platelet mean volume 7.9 6.6 - 10.5 fl Normal 12-11-19 20 [facility] (Bld) [Entitic vol] Hospital (46868) Comment: Result Comment: AUTOMATED DI FFERENTIAL Performed By: #### [id number] ## ## [facility],[address] [place] [address] 43950 Platelets (Bld) 235 150 - 450 x10EE3/UL Normal 12-11-2019 [facility] [#/Vol] [facility] (04699) Comment: Performed By: #### [id number] ## ## [facility],[address] [place] [address] 28267 RBC (Bld) [#/Vol] 4.32 4.10 - 5.30 x 10EE6/UL Normal 0 [facility] (50378) Comment: Performed By: #### [id number] ## ## [facility],[address] [place] [address] 58792 WBC (Bld) [#/Vol] 4.4 4.5 - 10.8 x 10EE3/UL Low 12-11-2019 [facility] ( 00540) Comment: Performed By: #### [id number] ## ## [facility],[address] [place] [address] 87745 c-reactive protein on 2019-12-11 CRP [Mass/Vol] <0.10 0.00 - 1.00 mg/L Normal 12-11-2019 [facility] ( 33614) Comment: Performed By: #### [id number] ## ## [facility],[address] [place] [address] 96193 bun on 2019-12-11 Urea nitrogen [Mass/Vol] 12 6 - 20 mg/dl Normal 12-10 [facility] ( 72896) Comment: Performed By: #### [id number] ## ## [facility],[address] [place] [address] 08417 albumin plasma [ccl] on 2019-12-11 Albumin [Mass/Vol] 4.2 3.4 - 4.8 g/dL Normal 12-11-2019 [facility] ( 18845) Comment: Performed By: #### [id number] ## ## [facility],[address] [place] [address] 28501 [facility] screening on 28-11-25 [facility] SCREENING Final Report Normal 12-05-2019 [facility] DATE OF EXAM: Dec 05 2019 1:[facility]W [facility] - [facility] SCREENING / (50052) PROCEDURE REASON: screening Physician Interpretation #[id number] - [facility] SCREENING BILATERAL DIGITAL SCREENING MAMMOGRAM WITH CAD: 12/05/2019 HISTORY: Screening / Screening Mammogram-patient reports no symptoms. RESULT: TECHNIQUE: The study was acquired using full field digital t echnology and interpreted from soft copy. Current study was also evaluated with a Computer Aided Detec tion (CAD). Comparison is made to exams dated: 12/04/2018 mammogram - [facility] and 03/02/2018 mammogram - [facility]. There are scattered fibroglandular elements in [...] Miko Avila M.D., Dr. Miko Avila, ph: , fax: [phone] Economic Historian(s): Zahra Farris, Fiscal Manager [facility] letter sent: Normal over 40 Mammogram [...] Family Medicine, and Medical/Surgical Oncology, the [facility] has carefully reviewed the data and reached [...] providers when to sto p screening mammograms. Pelt Grader: Cecelia Transcribe Date/Time: Dec 05 2019 1:44P Dictated by : MELISSA STODDARD MD This examination was interpreted and the report reviewed and electronically signed by: MELISSA STODDARD MD on Dec 05 2019 2:04PM EST cnco on 2019-12-05 CNCO HNO ID: [id number] Normal 12-05-2019 [facility] Author: Mammography Coordinator Center ([id number]) Service: ? Author Type: Physician Type: Letter Filed: 12/08/2019 11:34 PM Note Text: Fiscal Manager Center [address] [place] [id number] December 05, 2019 PID: [id number] Claire Guevara [address] [address] Dear Ms. Guevara, We are pleased to [...] report will be kept on file at [facility] as part of your permanent medical record and are available f or your continuing care. Thank you for allowing us to help in meeting your health car e needs. Sincerely, Dr. Stoddard Interpreting Radiologist Fiscal Manager Center (Normal over 40) cnpn on 2019-11-25 CNPN Telephone (NEURBA) Normal 11-25-2019 [facility] CLAIRE GUEVARA ([id number]) 1955 F Medical Date Time Provider Department Center 11/25/19 YANN DIALLO JR ([id number]) During your visit today, we recorded the [...] Swelling Date Reviewed: 11/14/2019 Reviewed by: Sanjiv ([facility]) Josue - Fully Assessed Reason for Visit: Orders [681] Primary Visit Diagnosis:Obstructive sleep apnea (adult ) (pediatric) [G47.33] Order(s):PAP TITRATION PSG (CPAP, BIPAP, ASV) [5396150] Or pat #: [id number] FUTURE Prescriptions as of 11/25/2019 Sig: DULOXETINE [...] on 11/25/19 CNPN Telephone (NEURGN) Normal 11-25-2019 [place] CLAIRE Ross ([id number]) 1955 F Medical Date Time Provider Department Center 11/25/19 QUINTIN SANTOS (COUNTY HISTORIAN, INSTANTIZER OPERATOR) NEURGN ([id number]) During your visit today, we recorded the following informati on about you: Quintin Santos APRN.INSTANTIZER OPERATOR, INSTANTIZER OPERATOR 11/25/2019 10:21 AM Signed Please let pt [...] Swelling Date Reviewed: 11/14/2019 Reviewed by: Sanjiv ([facility]) Josue - Fully Assessed Reason for Visit: [...] 11/25/19 progress on 2019-11 PROGRESS HNO ID: [id number] Normal 11-14-2019 [facility] Author: Quintin (Rooming House Operator Batch Mixing Truck Driver) TORIN Santos [facility] Service: ? ([id number]) Author Type: Nurse Practitioner Type: Progress Notes Filed: 11/14/2019 3:02 PM Note Text: Neurology Follow Up Note Date: November 14, 2019 Patient Name: Claire Guevara HPI: This is MsDavid Guevara a 64 year old female who p resents to [facility] Neurology for follow up of TIA. Pt was last se en by Dr. Diallo 08/28 for ZAID, RLS, and migraines. Since pt was last seen pt was admitted at [facility] f or ? TIA. [place] records reviewed. Pt had experienced numbness and [...] the start of Plavix. Records reviewed from [place]. MRI, MRA negative, LDL 104. Hemoglobi n A1c 5.7. She does follow with cardiology. . I will order an echo. [place] t echo on record was from 2017. Patient agrees and will follow-up with Dr. Diallo in [place] in 6-8 weeks. Medications: DULoxetine (CYMBALTA) 60 [...] 10 mg tablet Take 10 mg by [facility] once daily. PMH/PSH/FH/ALLERGIES: Reviewed from last visit [...] is to follow-up with Dr. Katarzyna Santos, COUNTY HISTORIAN.[facility], Department of Neurology 30 minutes were completed [id number] [facility] 2019-11-14 CNPN Telephone (NEURGN) Normal 11-14-2019 [facility] CLAIRE GUEVARA ([id number]) 1955 F Medical Date Time Provider Department Center 11/14/19 QUINTIN SANTOS (COUNTY HISTORIAN, INSTANTIZER OPERATOR) ROYCE ([id number]) During your visit today, we recorded the following informati on about you: [place] 11/14/2019 3:05 PM Signed Patient was scheduled for an echo on 11/24/19 at 1100 am at [facility]. Patient was given the date/time/location Allergies As of Date: 11/14/2019 Noted Allergy Reaction AUGMENTIN (AMOXICILLIN-POT CLAVUL*05/04/2017 2 - Rash CONTRAST DYE (IODINE) 11/14/2019 7 - Swelling Date Reviewed: 11/14/2019 Reviewed by: [facility]jiv [facility] Josue - Fully Assessed Reason for Visit: [...] 2019-11-14 CNOV Office Visit (NEURGN) Normal 11-14-19 [place] [facility] CLAIRE GUEVARA ([id number]) 1955 F Medical Date Time Provider Department Center 11/14/19 1:00 PM QUINTIN SANTOS (COUNTY HISTORIAN, INSTANTIZER OPERATOR) NEURGN ([id number]) During your visit today, we recorded the following informati on about you: Pulse Blood pressure Weight Height 93/minute 122/66 62.6 kg 1.626 m Quintin Santos APRN.INSTANTIZER OPERATOR, INSTANTIZER OPERATOR 11/14/2019 3:02 PM Signed Neurology Follow Up Note Date: November 14, 2019 Patient Name: Claire Guevara HPI: This is Ms. Claire Guevara a 64 year old female who presents to [facility] Neurology for follow up of TIA. Pt was last seen by Dr. Diallo 08/28 for ZAID, RLS, and migraines. Since pt was last seen pt was admitted at [facility] for ? TIA. [place] records reviewed. Pt had exp erienced numbness [...] the start of Plavix. Records reviewed from [place]. MRI, MRA negative, LDL 104. Hemoglobin A1c 5.7. She does follow with cardiology. . I will order an echo. Last echo on record was from 2017. Patient agrees and will follow-up with Dr. Diallo in [place] in 6-8 weeks. Medications: DULoxetine (CYMBALTA) 60 [...] follow-up with Dr. Diallo. Quintin Santos APRN.TORIN [facility], Department of Neurology 30 minutes were completed [id number] Quintin Santos APRN.TORIN HARKINS 11/14/2019 1:19 PM Addendum Get Echo Continue with Plavix, asa and lovastatin Follow up with Dr. Diallo in [place] Referring Provider: YANN DIALLO JR [[id number]] Allergies As of Date: 11/14/2019 Noted Allergy Reaction AUGMENTIN (AMOXICILLIN-POT CLAVUL*05/04/2017 2 - Rash CONTRAST DYE (IODINE) 11/14/2019 7 - Swelling Date Reviewed: 11/14/2019 Reviewed by: Sanjiv Ceballos - Fully Assessed Reason for Visit: Established Patient [175] Cmt: ER follow up- [facility] Primary Visit Diagnosis:Numbness and tingling [R20.0, R20.2] Other Visit Diagnoses:Transient cerebral ischemia, unspeci fied type [G45.9] Palpitation [R00.2] H/O: stroke [Z86.73] Order(s):ECHO [[id number]] Order #: [id number]: 1 FUTURE perflutren lipid microspheres (DEFINITY) 1.1 [...] lovastatin Follow up with Dr. Diallo in [place] Prescriptions ordered this encounter Disp Refills Start [...] Disposition: Return 6-8 weeks with Yoel in [place]. Follow-up and Disposition History Recorded Encounter Status:Closed by QUINTIN SANTOS CNP on 11/14/19 ot-mra neck without contrast import on 2019-11-06 OT-MRA Neck Images were obtained outside of [facility] Normal 11-06-2019 [facility] without Contrast [id number] [place] ([id number]) IMPORT mr-mra head only without contrast import on 2019-11-06 MR-MRA Head ONLY Images were obtained outside of [facility] Normal 11-06-2019 [facility] without Contrast [id number] ([id number][facility] IMPORT mr-brain without contrast import on 2019-11-06 MR-Brain without Images were obtained outside of [facility] Normal 11-06-2019 [facility] Contrast IMPORT [id number] [place] ([id number]) ct-brain/head without contrast import on 2019-11-05 CT-Brain/Head Images were obtained outside of [facility] Normal 11-05-2019 [place] without Contrast [id number] [facility] IMPORT [place] ([id number]) cr-chest 1 view import on 2019-11-05 CR-Chest 1 View Images were obtained outside of [facility] Normal 11-05-2019 [facility] IMPORT [id number] [place] ([id number]) cnpn on 2019-11-05 CNPN Telephone (NEURBA) Normal 11-05-2019 [place] CLAIRE GUEVARA ([id number]) 1955 F Medical Date Time Provider Department Center 11/05/19 YANN DIALLO JR ([id number]) During your visit today, we recorded the [...] go to ER today. She was at [employer] office when I spoke with he r. [...] BETH BEDOLLA on 11/05/19 cnpn on 2019-10-13 [facility] (NE[facility]BA) Normal 10-13-2019 [place] CLAIRE Ross ([id number]) 1955 F Medical Date Time Provider Department Center 10/13/19 YANN DIALLO JR ([id number]) During your visit today, we recorded the [...] 8 - 35 U/L Normal 0 10-09-2019 [facility] ( 03140) Comment: Performed By: #### [id number] ## ## [place] [address] sgot (ast) on 10-08 AST/SGOT 22 13 - 39 U/L Normal 10-09-2019 [facility] (43298) Comment: Performed By: #### [id number] ## ## [place] [id number] sedrate on SEDRATE 16 0 - 30 mm/hr Normal 10-09-2019 [facility] (39733) Comment: Performed By: #### [id number] ## ## [place] [address] creatinine on 10-08 Creatinine [Mass/Vol] 0.8 0.6 - 1.2 mg/dl Normal 10-09-19 [facility] ( 32471) Comment: Performed By: #### [id number] ## ## [facility],[address] [place] [address] 96084 cbc + diff on 10-08 Basophils (Bld) 0.00 0.00 - 0.10 x10EE3/UL Normal 10-09-2019 Abelino nikolay Lyndon [#/Vol] [facility] (27776) Comment: Performed By: #### [id number] ## ## [facility],[address] [place] [address] 98196 Basophils/100 WBC (Bld) 0.4 0.0 - 2.0 % Normal 2019 [facility] ( 72748) Comment: Performed By: #### [id number] ## ## [facility],[address] [place] [address] 96976 CBC + DIFF Normal 10-09-2019 [facility] (97205) Comment: Result Comment: CBC-COMPLETE BLOOD COUNT Performed By: #### [id number] ## ## [facility],[address] [place] [address] 08638 Eosinophils (Bld) 0.30 0.00 - 0.50 x10EE3/UL Normal 10-09-2019 [facility] [#/Vol] [facility] (25626) Comment: Performed By: #### [id number] ## ## [facility],[address] [place] [address] 74001 Eosinophils/100 WBC (Bld) 6.3 0.0 - 7.0 % Normal 09-11 [facility] ( 04472) Comment: Performed By: #### [id number] ## ## [facility],[address] [place] [address] 27209 Erythrocyte distribution 15.8 12.0 - 15.6 % High [facility] width (RBC) [Ratio] Hospital (88486) Comment: Performed By: #### [id number] ## ## [facility],[address] [place] [address] 08801 Hematocrit (Bld) [Volume 42.0 34.0 - 46.0 % Normal [facility] ( 29244) Comment: Performed By: #### [id number] ## ## [facility],[address] [place] [address] 29168 Hemoglobin (Bld) 14.1 12.0 - 16.0 g/dl Normal 10-09-2019 [facility] [Mass/Vol] [facility] (67533) Comment: Performed By: #### [id number] ## ## [facility],[address] [place] [address] 75453 Lymphocytes (Bld) 1.60 0.80 - 2.80 x10EE3/UL Normal 10-09-2019 [facility] [#/Vol] [facility] (69883) Comment: Performed By: #### [id number] ## ## [facility],[address] [place] [address] 94599 Lymphocytes/100 WBC (Bld) 31.6 20.0 - 45.0 % Normal [facility] ( 92262) Comment: Performed By: #### [id number] ## ## [address] [address] MANUAL DIFF N/A Normal 10-09-2019 [facility] (86609) Comment: Performed By: #### [id number] ## ## [address] [address] MCH (RBC) [Entitic mass] 31 27 - 33 pg Normal 10-08 [facility] ( 20275) Comment: Performed By: #### [id number] ## ## [address] [address] MCHC (RBC) [Mass/Vol] 34 32 - 36 X10 3 Normal 10-09-19 20 [facility] ( 37175) Comment: Performed By: #### [id number] ## ## [facility],[address] [place] [address] 07598 MCV (RBC) [Entitic vol] 93 80 - 99 fl Normal 2019 [facility] ( 51297) Comment: Performed By: #### [id number] ## ## [facility],[address] [place] [address] 07797 Monocytes (Bld) 0.60 0.20 - 1.00 x10EE3/UL Normal 10-09-2019 [facility] [#/Vol] [facility] (21945) Comment: Performed By: #### [id number] ## ## [facility],[address] [place] [address] 15727 MONOS % 11.9 0.0 - 10.0 % High 10-09-2019 [facility] (06136) Comment: Performed By: #### [id number] ## ## [facility],[address] [place] [address] 97555 Morphology Kasi (Bld) [Interp] N/A Normal 10-09-2019 [facility] ( 01407) Comment: Performed By: #### [id number] ## ## [facility],[address] [place] [address] 71932 Neutrophils (Bld) 2.50 1.50 - 7.10 x10EE3/UL Normal 10-09-2019 [facility] [#/Vol] [facility] (42882) Comment: Performed By: #### [id number] ## ## [facility],[address] [place] [address] 54041 Neutrophils/100 WBC (Bld) 49.8 46.0 - 76.0 % Normal [facility] ( 85901) Comment: Performed By: #### [id number] ## ## [facility],[address] [place] [address] 72425 Platelet mean volume 7.7 6.6 - 10.5 fl Normal 10-09-19 20 [facility] (Bld) [Entitic vol] [facility] (96607) Comment: Result Comment: AUTOMATED DI FFERENTIAL Performed By: #### [id number] ## ## [facility],[address] [place] [address] 58656 Platelets (Bld) 191 150 - 450 x10EE3/UL Normal 10-09-2019 [facility] [#/Vol] [facility] (87513) Comment: Performed By: #### [id number] ## ## [facility],[address] [place] [address] 49855 RBC (Bld) [#/Vol] 4.52 4.10 - 5.30 x 10EE6/UL Normal 0 [facility] (42929) Comment: Performed By: #### [id number] ## ## [facility],[address] [place] [address] 75086 WBC (Bld) [#/Vol] 4.9 4.5 - 10.8 x 10EE3/UL Normal 10-09-2019 [facility] ( 39458) Comment: Performed By: #### [id number] ## ## [facility],[address] [place] [address] 27420 c-reactive protein on 2019-10-09 CRP [Mass/Vol] <0.10 0.00 - 1.00 mg/L Normal 10-09-2019 [facility] ( 12034) Comment: Performed By: #### [id number] ## ## [facility],[address] [place] [address] 37914 bun on 2019-10-09 Urea nitrogen [Mass/Vol] 12 6 - 20 mg/dl Normal 10-08 [facility] ( 13485) Comment: Performed By: #### [id number] ## ## [facility],[address] [place] [address] 51698 albumin plasma on Albumin [Mass/Vol] 4.2 3.4 - 4.8 g/dL Normal 10-09-2019 [facility] ( 63683) Comment: Performed By: #### [id number] ## ## [facility],[address] [place] [address] on 2019-08-28 CNPN Telephone (NEURGN) Normal 08-28-2019 [place] [facility] CLAIRE GUEVARA ([id number]) 1955 F Medical Date Time Provider Department Center 08/28/19 YANN DIALLO JR ([id number]) During your visit today, we recorded the following informati on about you: El Prasad 08/28/2019 3:44 PM Signed Pre-certification of PSG Insurance [facility] [employer] Spoke with: Miss Cuevas Pre-certification number: [id number] [facility] 08/28/19-11/26/19 Patient wants test scheduled at [facility] El Prasad El Prasad 08/28/2019 3:44 PM Signed Patient insurance advised to get authorization for a split night study - in case this is required. She said if the second study is not n eeded the auth still covers just the PSG. Did you want to put a split study order in for me to send to [facility]? Yann Diallo MD 08/28/2019 9:12 PM Signed Yes. It is actually ordered as a split night if you see th e comments in the order. There is not an actual order for split night. [place] 08/29/2019 10:46 AM Signed Patient is scheduled for a PSG at [facility] on 09/09/19 at 800 pm. Order was faxed to [phone]. Patient was notified. Allergies As of Date: [...] (PPP) [Relative 1.00 0.90-1.30 {INR} Normal 08-24 [place] time] System (00 000) Comment: Result Comment: Vitamin K An tagonist (VKA) Therapeutic Range: INR 2 to 3 (Target INR of 2.5) Note: For patients treated w ith VKA drugs, such as warfarin, the [place] [employer] 2012 Guideline recommends a therapeutic INR range of 2 to 3 (target INR of 2.5). This recommendation includes high -risk patients with antiphospholipid syndrome with previous arter ial or venous thromboembolism, current-generation mechanica l or bioprosthetic aortic heart valve replacement. Note: Patients with auto suspension and steering mechanic al aortic valve replacement and additional [...] 70: [phone] Performed By: #### GPT #### [facility] [address] [place], [place] [address] PT Coag (PPP) [Time] 10.4 9.7-13.0 sec Normal 0 [facility] (01951) Comment: Performed By: #### GPT #### [facility] [address] [place], [place] [address] progress on 2019-08 PROGRESS HNO ID: [id number] Normal 08-25-2019 [place] Author: Yann Diallo Jr. General Service: ? Medical Author Type: Physician Center Type: Progress Notes ([id number]) Filed: 08/25/2019 11:19 AM Note Text: ESTABLISHED [...] visit, with more than 50% of the [facility] ilss-ji-ymrm time of the visit in counseling / coordination of care. hemogram on 2019-08 Erythrocyte distribution 15.6 11.7-14.4 % High 08-24 [facility] width (RBC) [Ratio] System (83127) Comment: Performed By: #### CBC1 #### [address] [address] Hematocrit (Bld) [Volume 41.8 34.1-44.9 % Normal 08-24 [facility] fraction] System (00 000) Comment: Performed By: #### CBC1 #### [address] [address] Hemoglobin (Bld) 13.4 11.2-15.7 g/dL Normal 08-25-2019 [facility] [Mass/Vol] System (0 0000) Comment: Performed By: #### CBC1 #### [address] [address] MCH (RBC) [Entitic mass] 30.4 25.6-32.2 pg Normal 08-24 [facility] (00 000) Comment: Performed By: #### CBC1 #### [facility] 1 [place], [place] [address] MCHC (RBC) [Mass/Vol] 32.1 31.6-34.8 % Normal 08-25-19 20 [facility] (77740) Comment: Performed By: #### CBC1 #### [facility] 1 [place], [place] [address] MCV (RBC) [Entitic vol] 94.8 79.4-94.8 fl Normal 2019 [facility] (00 000) Comment: Performed By: #### CBC1 #### [facility] 1 [place] [id number] Platelet mean volume (Bld) 10.7 9.4-12.3 fl Normal [facility] [Entitic vol] System (89674) Comment: Performed By: #### CBC1 #### [facility] 1 [place], [place] [address] Platelets (Bld) [#/Vol] 177 182-369 thou/cmm Low 2019 [facility] (00 000) Comment: Performed By: #### CBC1 #### [facility] 1 [place], [place] [address] RBC (Bld) [#/Vol] 4.41 3.93-5.22 mil/cmm Normal 08-25-2019 [facility] (00 000) Comment: Performed By: #### CBC1 #### [facility] 1 [place], [place] [address] RDW SD 55.0 36.4-46.3 fl High 08-25-2019 [facility] (30062) Comment: Performed By: #### CBC1 #### [facility] 1 [place], [place] [address] WBC (Bld) [#/Vol] 5.22 3.98-10.04 thou/cmm Normal 08-25-2019 [facility] (00 000) Comment: Performed By: #### CBC1 #### [facility] 1 [place], [place] [address] cnpn on 2019-08-25 CNPN Telephone (NEURGN) Normal 08-25-2019 [facility] CLAIRE GUEVARA ([id number]) 1955 F Medical Date Time Provider Department Center 08/25/19 YOEL MARTINEZ, YANN Roca NEUR ([id number]) During your visit today, we recorded the [...] Fully Assessed Reason for Visit: Patient Question [4058] Cmt: Neurology - Cholesterol Prescriptions as of [...] CNOV Office Visit (NEURGN) Normal 08-25-19 20 [facility] CLAIRE GUEVARA ([id number]) 1955 F Medical Date Time Provider Department Center 08/25/19 10:30 AM YANN DIALLO JR NEUR ([id number]) During your visit today, we recorded the following informati on about you: Pulse Blood pressure Weight Height 81/minute 114/66 61.6 kg 1.626 m Yann Diallo MD 08/25/2019 11:19 AM Signed ESTABLISHED PATIENT VISIT HISTORY OF PRESENT ILLNESS: Claire Guevara is a 64 year old female, [...] No - Drug use: No PHYSICAL EXAMINATION [facility] 04/11/2005 Blood pressure 114/66, pulse 81, height [...] with more than 50% of the total mlke-sb-izke time of the visit in counseling / coordination of care. Yann Diallo MD 08/25/2019 10:52 AM Signed 1. Increase gabapentin to 900mg nightly (3 of the 300mg caps ules). Referring Provider: YANN DIALLO JR [[id number]] Allergies As of Date: 08/25/2019 Noted Allergy [...] sleep hygiene [Z72.821] Order(s):CBC [SQCBC] Order #: [id number] FUTURE PROTHROMBIN TIME/PT [SQPT] Order #: [id number] FUTURE POLYSOMNOGRAM (PSG) [9374686] Order #: [id number] FUTURE gabapentin (NEURONTIN) 300 mg capsuleTake 3 [...] Provider Note - ED v2: Normal 1 [facility] ED v2 Chart Review: [facility] ([id number]) ED NOTES ED NOTES: Nontoxic appearing female [...] SIGNS: T PRBP SpO2O2(LPM) %FiO2 Method 08-Jun-2019 09:50:[id number] 97 CLINICAL IMPRESSION Diagnosis/Annotation: ED Dx Name:Viral [...] of care. This note was generated using ShoutOmatic. It may contain errors in wording, punctuation, or spelling. CRITICAL CARE TIME Is this a critically ill patient: no Electronic Signatures: Kyle Rodriguez (COUNTY HISTORIAN-INSTANTIZER OPERATOR) (Signed 08-Jun-2019 11:28) Authored: Provider Note - ED v2 Last Updated: 08-Jun-2019 11:28 by Kyle Rodriguez (AP RN-INSTANTIZER OPERATOR) rheumatoid factor [ccl] on 2019-06-02 Rheumatoid Factor 280 <16 IU/mL High 06-02-2019 [facility] (79234) Comment: Result Comment: [facility] [place] [address] [place] [address] Salvatore King III, M.D. [id number] Performed By: #### [id number] ## ## [facility],[address] [place] [address] hepatitis c ab ia w/confirm [ccl] on 2019-06-02 Hepatitis C Ab IA Negative NEGAT Normal 06-02-2019 [facility] (50526) Comment: Result Comment: [facility] [address] [place] [address] Salvatore King III, M.D. [id number] Performed By: #### [id number] ## ## [facility],[address] [place] [address] hep b surface ag [ccl] on 2019-06-02 Hepatitis B Surf. Ag Negative NEGAT Normal [address] [place] [address] ( [address]) Comment: Result Comment: [facility] in [facility] [address] [place] [address] Salvatore King III, M.D. [id number] Performed By: #### [id number] ## ## [facility],[address] [place] [address] hep b surface ab, quant [ccl] on 2019-06-02 HepB SurfaceAb,Quant <8.00 <8.00 Normal 9 [facility] (70679) Comment: Result Comment: No evidence of antibodies to Hepatitis B surface antigen. [facility] [place] [id number] Salvatore King III, M.D. [id number] Performed By: #### [id number] ## ## [facility],[address] [place] [address] hep b core ab, total (igm & igg) [ccl] on 2019-06-02 Hep B Core Ab,Total Negative NEGAT Normal 06-02-2019 [facility] ( 80636) Comment: Result Comment: [place] [address] [place] [address] Salvatore King III, M.D. [id number] Performed By: #### [id number] ## ## [facility],[address] [place] [address] cyclic citrullinated pep ab igg [ccl] on 2019-06-02 CCP Antibody, IgG 59 <20 Units High 06-02-2019 [facility] (03036) Comment: Result Comment: < 20 units: Negative 20-39 units: Weak Positive 40-59 units: Moderate Positi ve > 60 units: Strong Positive The following results were o btained with the Exotelva QUANTA Lite CCP3 IgG LISSY. Anti-CCP values obtained wit h different manufacturers' assay methods may not be used interchangeably. The ma gnitude of the reported IgG levels cannot be correlated to an endpoint ti ter. [facility] [place] [address] Salvatore King III, M.D. [id number] Performed By: #### [id number] ## ## [facility],[address] [place] [address] ccp antibody, igg o n 2019-06-02 CCP Antibody, IgG 59 <20 Units High 06-02-2019 [facility] (41606) Comment: Performed By: #### RF, AHBSQ , AHBCOT, HBSAG, AHCV1B #### [facility] s Routine Lab [address] [place] [address] #### ANAIFS ### # [facility] Immunology [address] [place] [address] #### CCP #### [facility] s Immuno Assay [address] [place] [address] shravan by ifa screen [ccl] on 2019-06-02 SHARVAN Pattern Homogeneous Normal 06-02-2019 [facility] (97789) Comment: Result Comment: [facility] Laboratories [address] [place] [address] Salvatore King III, M.D. [id number] Performed By: #### [id number] ## ## [facility],[address] [place] [address] SHRAVAN Titer 1:160 NEGAT Abnormal 06-02-2019 [facility] (18514) Comment: Performed By: #### [id number] ## ## [facility],[address] [place] [address] Nuclear Ab IF (S) Positive NEGAT Abnormal 06-02-2019 [facility] [[facility]] [facility] ( 59977) Comment: Result Comment: Normal range : negative at <1:80 serum dilution. Performed By: #### [id number] ## ## [facility],[address] [place] [address] tb by quantiferon *outside use only* on 2019-06-01 Interpretation TBNEG Normal 06-01-2019 [facility] (16405) Comment: Performed By: #### INTPGP ## ## [facility] Immunology [address] [place] [address] Mitogen minus Nil 8.48 Normal 06-01-2019 [facility] (64912) Comment: Performed By: #### INTPGP ## ## [facility] Immunology [facility]0 [place] [phone] TB NIL 0.07 IU/mL Normal 06-01-2019 [facility] (89751) Comment: Performed By: #### INTPGP ## ## [facility] Immunology [address] [place] [phone] TB Result NEGAT Negative Normal 06-01-2019 [facility] (88329) Comment: Performed By: #### INTPGP ## ## [facility] Immunology [address] [place] [phone] TB1 Ag minus Nil 0.00 <0.35 IU/mL Normal 06-01-2019 [facility] (58466) Comment: Performed By: #### INTPGP ## ## [facility] Immunology [address] [place] [phone] TB2 Ag minus Nil 0.00 <0.35 IU/mL Normal 06-01-2019 [facility] (21498) Comment: Performed By: #### INTPGP ## ## [place] [phone] quantiferon tb incubated [ccl] on 2019-06-01 Interpretation No evidence of current or Normal 06-01-2019 [facility] previous infection with [facility] Mycobacterium tuberculosis. (31516) Comment: Result Comment: [facility] [address] [place] [address] Salvatore King III, M.D. [id number] Performed By: #### [id number] ## ## [facility],[address] [place] [address] Mitogen minus Nil 8.48 Normal 06-01-2019 [facility] (65849) Comment: Performed By: #### [id number] ## ## [facility],[address] [place] [address] TB NIL 0.07 IU/mL Normal 06-01-2019 [facility] (57648) Comment: Performed By: #### [id number] ## ## [facility],[address] [place] [address] TB Result Negative NEGAT Normal 06-01-2019 [facility] (32080) Comment: Performed By: #### [id number] ## ## [facility],[address] [place] [address] TB1 Ag minus Nil 0.00 <0.35 IU/mL Normal 06-01-2019 [facility] (25402) Comment: Performed By: #### [id number] ## ## [facility],[address] [place] [address] TB2 Ag minus Nil 0.00 <0.35 IU/mL Normal 06-01-2019 [facility] (19015) Comment: Performed By: #### [id number] ## ## [facility],[address] [place] [address] shravan by ifa on 06-01 SHRAVAN Pattern HOMO Normal 06-01-2019 [facility] (43592) Comment: Performed By: #### RF, AHBSQ , AHBCOT, HBSAG, AHCV1B #### [facility] Routine Lab [facility] [place] [address] #### ANAIFS ### # [facility] Immunology [address] [place] [phone] #### CCP #### [facility] Immuno Assay [address] [place] [phone] SHRAVAN Titer D160 Negative Abnormal 06-01-2019 [facility] (03863) Comment: Performed By: #### RF, AHBSQ , AHBCOT, HBSAG, AHCV1B #### [facility] [address] [place] [phone] #### ANAIFS ### # [facility] [address] [place] [phone] #### CCP #### [facility] Immuno Assay [address] [place] [phone] Nuclear Ab IF (S) Positive Negative Abnormal 06-01-2019 [facility] [Titer] [facility] (36897) Comment: Performed By: #### RF, AHBSQ , AHBCOT, HBSAG, AHCV1B #### [facility] [address] [place] [phone] #### ANAIFS ### # [facility] [address] [place] [phone] #### CCP #### [facility] Immuno [facility] [address] [place] [phone] rheumatoid factor o n 2019-05-31 Rheumatoid Factor 280 <16 IU/mL High 05-31-2019 [facility] (35133) Comment: Performed By: #### RF, AHBSQ , AHBCOT, HBSAG, AHCV1B #### [facility] Routine Lab [address] [place] [phone] #### ANAIFS ### # [facility] Immunology [address] [place] [phone] #### CCP #### [facility]o [facility] [address] [place] [phone] hepb surfaceab,quant on 2019-05-31 HepB SurfaceAb,Quant <8.00 <8.00 Normal 9 [facility] (72508) Comment: Performed By: #### RF, AHBSQ , AHBCOT, HBSAG, AHCV1B #### [facility] Routine Lab [address] [place] [phone] #### ANAIFS ### # [facility] Immunology [address] [place] [phone] #### CCP #### [facility]o [facility] [address] [place] [phone] hepatitis b surf. ag on 2019-05-31 Hepatitis B Surf. Ag NEGAT Negative Normal 9 [facility] (10094 ) Comment: Performed By: #### RF, AHBSQ , AHBCOT, HBSAG, AHCV1B #### [facility] s Routine Lab [address] [place] [phone] #### ANAIFS ### # [facility] [address] [place] [phone] #### CCP #### [facility] Immuno Assay [address] [place] [phone] hep c ab ia w/conf on 2019-05-31 Hepatitis C Ab IA NEGAT Negative Normal 05-31-2019 [facility] (82762) Comment: Performed By: #### RF, AHBSQ , AHBCOT, HBSAG, AHCV1B #### [facility] [address] [place] [phone] #### ANAIFS ### # [facility] [address] [place] [phone] #### CCP #### [facility] Immuno Assay [address] [place] [phone] hep b core ab,total on 2019-05-31 Hep B Core Ab,Total NEGAT Negative Normal 05-31-2019 [facility] (57608) Comment: Performed By: #### RF, AHBSQ , AHBCOT, HBSAG, AHCV1B #### [facility] Routine Lab [address] [place] [address] #### ANAIFS ### # [facility] Immunology [address] [place] [address] #### CCP #### [facility] Immuno Assay [address] [place] [address] vitamin d, 25 hydroxy on 2019-05-30 VitD 83.04 30.00 - 100 ng/mL Normal 05-30-2019 [facility] (04934) Comment: Result Comment: 25-OHD3 shlomo cates both [...] D2 Not Esta blished Performed By: #### [id number] ## ## [facility],[address] [place] [address] 25035 uric acid on 2018-06 Urate [Mass/Vol] 5.0 2.3 - 6.6 mg/dl Normal 05-30-2019 [facility] ( 58105) Comment: Performed By: #### [id number] ## ## [facility],[address] [place] [address] 28660 sgpt (alt) on 05-30 ALT [Catalytic activity/Vol] 16 8 - 35 U/L Normal 1 07-31-2018 [facility] ( 00463) Comment: Performed By: #### [id number] ## ## [facility],[address] [place] [address] 12727 sgot (ast) on 05-30 AST/SGOT 25 13 - 39 U/L Normal 05-30-2019 [facility] (96886) Comment: Performed By: #### [id number] ## ## [facility],[address] [place] [address] 58203 sedrate on SEDRATE 15 0 - 30 mm/hr Normal 05-30-2019 [facility] (23974) Comment: Performed By: #### [id number] ## ## [facility],[address] [place] [address] 39180 cbc + diff on 05-30 Basophils (Bld) 0.00 0.00 - 0.10 x10EE3/UL Normal 05-30-2019 [facility] [#/Vol] [facility] (55750) Comment: Performed By: #### [id number] ## ## [facility],[address] [place] [address] 74099 Basophils/100 WBC (Bld) 0.7 0.0 - 2.0 % Normal 2018 [facility] ( 29782) Comment: Performed By: #### [id number] ## ## [facility],[address] [place] [address] 00693 CBC + DIFF Normal 05-30-2019 [facility] (62331) Comment: Result Comment: CBC-COMPLETE BLOOD COUNT Performed By: #### [id number] ## ## [facility],[address] [place] [address] 09873 Eosinophils (Bld) 0.20 0.00 - 0.50 x10EE3/UL Normal 05-30-2019 [facility] [#/Vol] [facility] (03962) Comment: Performed By: #### [id number] ## ## [facility],[address] [place] [address] 11048 Eosinophils/100 WBC (Bld) 5.6 0.0 - 7.0 % Normal 05-12 [facility] ( 60678) Comment: Performed By: #### [id number] ## ## [facility],[address] [place] [address] 37267 Erythrocyte distribution 14.4 12.0 - 15.6 % Normal [facility] (RBC) [Ratio] Hospital (85731) Comment: Performed By: #### [id number] ## ## [facility],[address] [place] [address] 86167 Hematocrit (Bld) [Volume 41.7 34.0 - 46.0 % Normal [facility] ( 12266) Comment: Performed By: #### [id number] ## ## [facility],[address] [place] [address] 20855 Hemoglobin (Bld) 13.8 12.0 - 16.0 g/dl Normal 05-30-2019 [facility] [Mass/Vol] [facility] (95819) Comment: Performed By: #### [id number] ## ## [facility],[address] [place] [address] 695[address] Lymphocytes (Bld) 1.60 0.80 - 2.80 x10EE3/UL Normal 05-30-2019 [facility] [#/Vol] [facility] (64263) Comment: Performed By: #### [id number] ## ## [facility],[address] [place] [address] 04908 Lymphocytes/100 WBC (Bld) 42.0 20.0 - 45.0 % Normal [facility] ( 38766) Comment: Performed By: #### [id number] ## ## [facility],[address] [place] [address] 45437 MANUAL DIFF N/A Normal 05-30-2019 [facility] (40318) Comment: Performed By: #### [id number] ## ## [facility],[address] [place] [address] 64233 MCH (RBC) [Entitic mass] 30 27 - 33 pg Normal 05-30 [facility] ( 24545) Comment: Performed By: #### [id number] ## ## [facility],[address] [facility] [address] MCHC (RBC) [Mass/Vol] 33 32 - 36 X10 3 Normal 05-30-20 19 [facility] ( 68543) Comment: Performed By: #### 539254 ## ## [facility],[address] [place] [address] 19431 MCV (RBC) [Entitic vol] 92 80 - 99 fl Normal 2018 [facility] ( 70040) Comment: Performed By: #### [id number] ## ## [facility],[address] [place] [address] 42013 Monocytes (Bld) 0.40 0.20 - 1.00 x10EE3/UL Normal 05-30-2019 Abelino nikolay Lyndon [#/Vol] [facility] (20078) Comment: Performed By: #### [id number] ## ## [facility],[address] [place] [address] 85200 MONOS % 11.2 0.0 - 10.0 % High 05-30-2019 [facility] (02018) Comment: Performed By: #### [id number] ## ## [facility],[address] [place] [address] 40759 Morphology Kasi (Bld) [Interp] N/A Normal 05-30-2019 [facility] ( 99930) Comment: Performed By: #### 527903 ## ## [facility],[address] [place] [address] 06741 Neutrophils (Bld) 1.50 1.50 - 7.10 x10EE3/UL Normal 05-30-2019 [facility] [#/Vol] [facility] (18954) Comment: Performed By: #### 117784 ## ## [facility],[address] [facility] [address] Neutrophils/100 WBC (Bld) 40.5 46.0 - 76.0 % Low [facility] ( 71931) Comment: Performed By: #### 140286 ## ## [facility],[address] [place] [address] 34430 Platelet mean volume 8.4 6.6 - 10.5 fl Normal 05-30-20 19 [facility] (Bld) [Entitic vol] [facility] (78363) Comment: Result Comment: AUTOMATED DI FFERENTIAL Performed By: #### [id number] ## ## [facility],[address] [place] [address] 92759 Platelets (d) 168 150 - 450 x10EE3/UL Normal 05-30-2019 [facility] [#/Vol] [facility] (60105) Comment: Performed By: #### [id number] ## ## [facility],[address] [place] [address] 73140 RBC (Bld) [#/Vol] 4.52 4.10 - 5.30 x 10EE6/UL Normal 9 [facility] (59641) Comment: Performed By: #### [id number] ## ## [facility],[address] [place] [address] 88419 WBC (Bld) [#/Vol] 3.8 4.5 - 10.8 x 10EE3/UL Low 05-30-2019 [facility] ( 69731) Comment: Performed By: #### 876352 ## ## [facility],[address] [place] [address] 81351 calcium total on 29-05-20 Calcium [Mass/Vol] 9.9 8.6 - 10.2 mg/dl Normal 05-30-2019 [facility] ( 05400) Comment: Performed By: #### [id number] ## ## [facility],[address] [place] [address] 54034 c-reactive protein on 2019-05-30 CRP [Mass/Vol] <0.10 0.00 - 1.00 mg/L Normal 05-30-2019 [facility] ( 41784) Comment: Performed By: #### 865209 ## ## [facility],[address] [place] [address] 58823 bun/creat egfr (non-) on 2019-05-30 Age - Reported 63 years Normal 05-30-2019 [facility] (26196) Comment: Performed By: #### [id number] ## ## [facility],[address] [place] [address] 47172 Creatinine [Mass/Vol] 0.8 0.6 - 1.2 mg/dl Normal 05-30-20 [facility] ( 53708) Comment: Performed By: #### [id number] ## ## [facility],[address] [place] [address] 77944 GFR/1.73 sq M >60 60 - 999 mL/min/{1.73_m2} Normal 9 [facility] non-blacks MDRD (000 00) (S/P/Bld) [Vol [...] PATIENTS 18 AND OLDER. Performed By: #### [id number] ## ## [facility],[address] [place] [address] 26680 Urea nitrogen [Mass/Vol] Normal 05-30 [facility] (49068) Comment: Result Comment: BUN/CREATINI NE eGFR NON-) Performed By: #### 996255 ## ## [facility],[address] [place] [address] 46085 Urea nitrogen [Mass/Vol] 10 6 - 20 mg/dl Normal 05-30 [facility] ( 26244) Comment: Performed By: #### [id number] ## ## [facility],[address] [place] [address] 14087 albumin plasma on Albumin [Mass/Vol] 4.2 3.4 - 4.8 g/dL Normal 05-30-2019 [facility] ( 25253) Comment: Performed By: #### [id number] ## ## [facility],[address] [place] [address] 77726 obsolete on 2017-10 OBSOLETE Orders Only Normal 11-02-2017 Hilda (MEPRAD) --------CLAIRE GUEVARA [facility] ( ) 1955 F CHTDate Jeevan e Provider Department11/02/17 YANN DIALLO JR During your visit (00 000) today, we recorded the follo wing information about you:Allergies As of Date: 11/02/2017 Noted Allergy ReactionAUGMENTIN (AMOXICILL IN-POT CLAVUL*05/04/2017 2 - RashDate Reviewed: 10/26/2017Reviewed by: Yann Diallo Jr. - Fully AssessedPrimary Visit Diagnosis:Obstructive sleep apnea (adult) (pediatric) [G47.33]Order(s):CPAP FULL F MALCOLM MASK [[id number]] Order #: [id number]: 1Prescriptions as of 11/02/2017 Sig: GABAPENTIN 300 [...] FOR*Follow-up and Disposition History RecordedEncounter Number: [id number] Status:Closed by YANN DIALLO on 11/02/17 neurology consultation on 2017-06-27 Neurology Consultation Normal 018 [facility] ([place]) ([id number]) vl carotid us/doppler complete on 2017-06-26 VL Carotid US/Doppler Complete Normal 06-26-2017 [facility] ([place]) ([id number]) progress note on 28-06-15 Protein mass conc Normal 06-26-2017 A [facility] ([place]) ([id number]) mri spine cervical w/o contrast on 2017-06-26 MRI SPINE ORIGINALMRI SPINE CERVICAL Normal [facility] CERVICAL W/O W/O CONTRAST [facility] ([place]) CONTRAST Statement: .. TIA, neck (71655) pain. Concern for stenosis.. Transient left foot [...] stenosis. Uncovertebral spurring and facet arthropathy cause mqkcmkuy-te-diylcn right, mild left foraminal stenosis. C7-T1: No stenosis. IMPRESSION: 1. Symptoms in a right C6 or C7 distribution would correlate with the degenerative foraminal stenosis at C5-6 or C6-7 respectively.2. Mild degenerative spinal canal stenosis at C5-6 and C6-7.3. No intramedullary signal abnormality. Interpreted By: Dereje Timmonsreliminary Report By: Dereje Timmons MDElectronically Signed By: Dereje Timmons MD Dictated Date: 06/26/2017 12:48:07 PM Prelim Date: 06/26/2017 12:48:07 PM Sign Date: 06/26/2017 12:52:56 PM mra/mri brain w/o contrast on 2017-06-26 MRA/MRI BRAIN W/O ORIGINALMRA/MRI BRAIN W/O Normal 06-26-2017 [facility] CONTRAST CONTRAST Clinical Fo undation ([place]) Statement: tia. TECHNIQUE: ([id number]) Multiplanar, multisequence MRI imaging of the brain was obtained. Lkgf-xd-rdfvnv MRA of the head. Source data and [...] of the head. Interpreted By: Dereje Timmons [facility] Report By: Dereje Timmons MDElectronically Signed By: Dereje Timmons MD Dictated Date: 06/26/2017 12:42:44 PM Prelim Date: 06/26/2017 12:42:44 PM Sign Date: 06/26/2017 12:47:58 PM lipid on 2017-06-26 Cholesterol in HDL mass 43 40-59 mg/dL Normal 2017 [facility] conc ([place]) (0000 0) Comment: Result Comment: HDL Referenc e Interval:Less than 40 Low - high risk60 or above Optimal/lowers risk Performed By: #### CBC, ADIF F, ANEU, BMP, GFR, APTT, PRO, TROPI ####[place] [address] Cholesterol in LDL mass 132 0-129 mg/dL High 2017 [facility] conc ([place]) (0000 0) Comment: Result Comment: LDL is a sherin culated result and requires a 12-hr fast.LDL Reference Interval:Less than 100 Ntruaxs648-234 Near or above naizhdu135-169 Borderline high tabv102-558 High oofm357 and above Very high risk Performed By: #### CBC, ADIF F, ANEU, BMP, GFR, APTT, PRO, TROPI ####[place] [address] Cholesterol mass conc 194 50-199 mg/dL Normal 06-26-19 18 [facility] ([place]) (0000 0) Comment: Result Comment: Cholesterol Reference Interval:Less than 200 Hhzjakzts258-885 Borderline high [id number] and above High risk Performed By: #### CBC, ADIF F, ANEU, BMP, GFR, APTT, PRO, TROPI ####[place] [address] Triglyceride mass conc 97 3-149 mg/dL Normal 018 [facility] ([place]) (0000 0) Comment: Result Comment: Triglyceride Reference Interval:Less than 150 Nktsag380-035 Borderline high zpcp445-671 High mvqw610 or higher Very high risk Performed By: #### CBC, ADIF F, ANEU, BMP, GFR, APTT, PRO, TROPI ####[place] [address] inpatient patient summary on 2017-06-26 Inpatient Patient Summary Normal 06-11 [facility]) ([id number]) echocardiogram, adult on 2017-06-26 Echocardiogram, Adult Normal 06-26-19 18 [facility] ([place]) ([id number]) discharge summary o n 2017-06-26 Discharge Summary Normal 06-26-2017 A [facility] ([place]) ([id number]) depart summary on 2 Depart Summary Normal 06-26-2017 [facility]) ([id number]) cbc on 2017-06-26 Erythrocyte distribution 15.2 11.5-15.5 % Normal 06-26 [facility] Auto Ratio (RBC) [facility]) (45310) Comment: Performed By: #### CBC, ADIF F, ANEU, BMP, GFR, APTT, PRO, TROPI ####[place] [address] Hematocrit Auto Volume 40.0 34.0-46.0 % Normal 018 [facility] Fraction (Bld) ([place]) ([id number]) Comment: Performed By: #### CBC, ADIF F, ANEU, BMP, GFR, APTT, PRO, TROPI ####[place] [address] Hemoglobin mass conc 13.3 12.0-16.0 G/dL Normal 8 [facility] (Bld) [facility] ([place]) (94376) Comment: Performed By: #### CBC, ADIF F, ANEU, BMP, GFR, APTT, PRO, TROPI ####[place] [address] MCH Auto Entitic mass 30.9 27.0-33.0 pg Normal 06-26-19 18 [facility] (RBC) ([place]) (0000 0) Comment: Performed By: #### CBC, ADIF F, ANEU, BMP, GFR, APTT, PRO, TROPI ####[place] [address] MCHC Auto mass conc 33.2 32.0-36.0 G/dL Normal 06-26-2017 [facility] (RBC) ([place]) (0000 0) Comment: Performed By: #### CBC, ADIF F, ANEU, BMP, GFR, APTT, PRO, TROPI ####[place] [address] MCV Auto Entitic volume 93.2 80.0-99.0 fL Normal 2017 [facility] (RBC) ([place]) (0000 0) Comment: Performed By: #### CBC, ADIF F, ANEU, BMP, GFR, APTT, PRO, TROPI ####[place] [address] Platelet mean volume Auto 9.3 6.6-10.5 fL Normal 06-11 [facility] Entitic volume (Bld) ([place]) ([id number]) Comment: Performed By: #### CBC, ADIF F, ANEU, BMP, GFR, APTT, PRO, TROPI ####[place] [address] Platelets Auto #/vol 128 150-450 10 3/mcL Low 8 [facility] ([facility] ([place]) (0000 0) Comment: Performed By: #### CBC, ADIF F, ANEU, BMP, GFR, APTT, PRO, TROPI ####[place] [address] RBC Auto #/vol 4.30 4.10-5.30 10 6/mcL Normal 06-26-2017 [facility] ([place]) ([id number]) Comment: Performed By: #### CBC, ADIF F, ANEU, BMP, GFR, APTT, PRO, TROPI ####[place] [address] WBC Auto #/vol (d) 3.50 4.50-10.80 10 3/mcL Low 06-26-19 18 [facility] ([place]) (0000 0) Comment: Performed By: #### CBC, ADIF F, ANEU, BMP, GFR, APTT, PRO, TROPI ####[place] [address] bmp on 2017-06-26 Calcium mass conc 8.7 8.4-10.1 mg/dL Normal 06-26-2017 A [facility] ([place]) ([id number]) Comment: Performed By: #### CBC, ADIF F, ANEU, BMP, GFR, APTT, PRO, TROPI ####[place] [address] Chloride molar conc 106 98-110 mEq/L Normal 06-26-2017 [facility] ([place]) ([id number]) Comment: Performed By: #### CBC, ADIF F, ANEU, BMP, GFR, APTT, PRO, TROPI ####[place] [address] CO2 molar conc 29 22-32 mEq/L Normal 06-26-2017 [facility] ([place]) ([id number]) Comment: Performed By: #### CBC, ADIF F, ANEU, BMP, GFR, APTT, PRO, TROPI ####[place] [address] Creatinine mass conc 0.61 0.50-1.20 mg/dL Normal 8 [facility] ([place]) (0000 0) Comment: Performed By: #### CBC, ADIF F, ANEU, BMP, GFR, APTT, PRO, TROPI ####[place] [address] Electrolyte Balance 7.0 4.0-15.0 mEq/L Normal 06-26-2017 [facility] ([place]) (0000 0) Comment: Performed By: #### CBC, ADIF F, ANEU, BMP, GFR, APTT, PRO, TROPI ####[place] [address] Glucose mass conc 88 82-115 mg/dL Normal 06-26-2017 [facility] ([place]) ([id number]) Comment: Performed By: #### CBC, ADIF F, ANEU, BMP, GFR, APTT, PRO, TROPI ####[place] [address] Potassium molar conc 4.0 3.5-5.0 mEq/L Normal 8 [facility] ([place]) (0000 0) Comment: Performed By: #### CBC, ADIF F, ANEU, BMP, GFR, APTT, PRO, TROPI ####[place] [address] Sodium molar conc 142 136-145 mEq/L Normal 06-26-2017 [facility] ([place]) (69714) Comment: Performed By: #### CBC, ADIF F, ANEU, BMP, GFR, APTT, PRO, TROPI ####[place] [address] Urea nitrogen mass conc 11.0 8.0-22.0 mg/dL Normal 2017 [facility] ([place]) ([id number]) Comment: Performed By: #### CBC, ADIF F, ANEU, BMP, GFR, APTT, PRO, TROPI ####[place] [address] Urea nitrogen/Creatinine 18.0 10.0-22.0 ratio Normal 06-26 [facility] ([place]) ([id number]) Comment: Performed By: #### CBC, ADIF F, ANEU, BMP, GFR, APTT, PRO, TROPI ####[place] [address] a1c on 2017-06-26 Hemoglobin A1c/Hemoglobin.total 5.7 4.0-6.0 % Normal 06-26-2017 [facility] ([facility]) [facility] ([place]) (59742) Comment: Performed By: #### CBC, ADIF F, ANEU, BMP, GFR, APTT, PRO, TROPI ####[place] [address] .morph on 2017-06-11 6 Platelets Auto #/vol Slt Decreased Normal 06-26 [facility] ([facility]) ([place]) (0000 0) Comment: Performed By: #### CBC, ADIF F, ANEU, BMP, GFR, APTT, PRO, TROPI ####[place] [address] RBC morphology finding Nom Normal Normal [facility] ([facility]) ([place]) (0000 0) Comment: Performed By: #### CBC, ADIF F, ANEU, BMP, GFR, APTT, PRO, TROPI ####[place] [address] .manual diff on 01-10-16 Basophil %, Manual 1.0 0.0-2.5 % Normal 06-26-2017 [facility] ([place]) ([id number]) Comment: Performed By: #### CBC, ADIF F, ANEU, BMP, GFR, APTT, PRO, TROPI ####[place] [address] Basophil, Abs Manual 0.04 0.00-0.27 10 3/mcL Normal 8 [facility] ([place]) (56803) Comment: Performed By: #### CBC, ADIF F, ANEU, BMP, GFR, APTT, PRO, TROPI ####[place] [address] Cells Counted 100 Normal 06-26-2017 [facility]) ([id number]) Comment: Performed By: #### CBC, ADIF F, ANEU, BMP, GFR, APTT, PRO, TROPI ####[place] [id number] Eosinophil, Abs Manual 0.32 0.00-0.65 10 3/mcL Normal 018 [facility]) (36931) Comment: Performed By: #### CBC, ADIF F, ANEU, BMP, GFR, APTT, PRO, TROPI ####[place] [address] Lymphocyte %, Manual 37.0 20.0-40.0 % Normal 8 [facility] ([place]) (0000 0) Comment: Performed By: #### CBC, ADIF F, ANEU, BMP, GFR, APTT, PRO, TROPI ####[place] [address] Lymphocyte, Abs Manual 1.29 0.90-4.32 10 3/mcL Normal 018 [facility]) ([id number]) Comment: Performed By: #### CBC, ADIF F, ANEU, BMP, GFR, APTT, PRO, TROPI ####[place] [address] Monocyte %, Manual 4.0 2.0-13.0 % Normal 06-26-2017 [facility]) (07507) Comment: Result Comment: 9.0 Performed By: #### CBC, ADIF F, ANEU, BMP, GFR, APTT, PRO, TROPI ####[place] [id number] Monocyte, Abs Manual 0.14 0.09-1.40 10 3/mcL Normal 8 [facility]) (27111) Comment: Performed By: #### CBC, ADIF F, ANEU, BMP, GFR, APTT, PRO, TROPI ####[place] [address] Neutrophil %, Manual 49.0 50.0-75.0 % Low 8 [facility] ([place]) (79344) Comment: Performed By: #### CBC, ADIF F, ANEU, BMP, GFR, APTT, PRO, TROPI ####[place] [address] Neutrophil, Abs Manual 1.72 2.25-8.10 10 3/mcL Low 018 [facility] ([place]) ([id number]) Comment: Performed By: #### CBC, ADIF F, ANEU, BMP, GFR, APTT, PRO, TROPI ####[address] [address] .gfr on 2017-06-26 GFR Non- >60 Normal 06-26 [facility] ([place]) (01413) Comment: Result Comment: GFR Populati on mean [...] F, ANEU, BMP, GFR, APTT, PRO, TROPI ####[address] [address] GFR >60 Normal 8 [facility] ([place]) (61833) Comment: Result Comment: GFR Populati on mean [...] F, ANEU, BMP, GFR, APTT, PRO, TROPI ####[place] [address] xr chest 1 view on 2017 XR CHEST 1 VIEW ORIGINALXR CHEST 1 VIEW, Normal 2017 [facility] 2017 2:39 PM Fo undation ([place]) INDICATION: chest pain/SOB (51120) COMPARISON: 03 August 2008 FINDINGS: The lungs [...] Troponin I.cardiac <0.015 0.000-0.040 ng/mL Normal 8 [facility] ([place]) ([id number]) Comment: Result Comment: Troponin I r eference ranges (02/16/14): 0.00-0.040 ng/mL Negative and non-diagnostic. >0.040 ng/mL Consistent with cardiac damage, increased clinical risk and possibility of myocardial infarction. Serial measurements, a rise & fall in test results, clinical history, appropriate symptoms and/or ECG changes may help assess possibility of OR. *Other non-acute coronary syndrome conditions such as CHF, myocarditis, pulmonary emboli, sepsis and cardiac s urgery could result in myocardial damage and increased troponin levels. Performed By: #### CBC, ADIF F, ANEU, BMP, GFR, APTT, PRO, TROPI ####[facility] [place] [address] pro on 2017 INR Coag RelTime (PPP) 0.9 ratio Normal 018 [facility] ([place]) (11704) Comment: Result Comment: The [employer] (CHEST, 1991, 102:312S-25S)recommended the rapeutic range for oral anticoagulant therapy is:LOW RISK: Prophylaxis of venous thrombosis INR: 2.0-3.0 Treatment of pulmonary embolism 2.0-3.0 P revention of systemic embolism 2.0-3.0HIGH RISK: Mechanical prosthetic valves 2.5-3.5 Performed By: #### CBC, ADIF F, ANEU, BMP, GFR, APTT, PRO, TROPI ####[place] [address] [address] [place] [address] Prothrombin time (PT) 10.9 9.0-14.5 seconds Normal 06-25-19 18 [facility] Coag time (PPP) [facility] ([place]) (83355) Comment: Result Comment: Effective , Protime results may be affected by some antibiotics (i.e. Ciprofloxa nikki, Azithromycin, Bactrim) which may potentiate the action of oral anticoagu lants, with further increases in Protime/INR. 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 [...] Erythrocyte distribution 15.0 11.5-15.5 % Normal 06-25 [facility] width Auto Ratio (RBC) [facility] ([place]) (90914) Comment: Performed By: #### CBC, ADIF F, ANEU, BMP, GFR, APTT, PRO, TROPI ####[address] [address] Hematocrit Auto Volume 44.7 34.0-46.0 % Normal 018 [facility] Fraction (Bld) ([place]) (43423) Comment: Performed By: #### CBC, ADIF F, ANEU, BMP, GFR, APTT, PRO, TROPI ####[place] [address] [address] [place] [address]37[address] Hemoglobin mass conc 15.0 12.0-16.0 G/dL Normal 8 [facility] (Bld) [facility] ([place]) (25756) Comment: Performed By: #### CBC, ADIF F, ANEU, BMP, GFR, APTT, PRO, TROPI ####[address] [address] MCH Auto Entitic mass 31.1 27.0-33.0 pg Normal 06-25-19 18 [facility] (RBC) ([place]) (0000 0) Comment: Performed By: #### CBC, ADIF F, ANEU, BMP, GFR, APTT, PRO, TROPI ####[place] [address] MCHC Auto mass conc 33.4 32.0-36.0 G/dL Normal 2017 [facility] (RBC) ([place]) (0000 0) Comment: Performed By: #### CBC, ADIF F, ANEU, BMP, GFR, APTT, PRO, TROPI ####[place] [address] MCV Auto Entitic volume 93.1 80.0-99.0 fL Normal 2017 [facility] (RBC) ([place]) (0000 0) Comment: Performed By: #### CBC, ADIF F, ANEU, BMP, GFR, APTT, PRO, TROPI ####[place] [address] Platelet mean volume Auto 8.3 6.6-10.5 fL Normal 06-11 [facility] Entitic volume ([facility]) ([place]) ([id number]) Comment: Performed By: #### CBC, ADIF F, ANEU, BMP, GFR, APTT, PRO, TROPI ####[place] [address] Platelets Auto #/vol 138 150-450 10 3/mcL Low 8 [facility] (d) ([place]) (0000 0) Comment: Performed By: #### CBC, ADIF F, ANEU, BMP, GFR, APTT, PRO, TROPI ####[place] [address] RBC Auto #/vol 4.80 4.10-5.30 10 6/mcL Normal 2017 [facility] (d) [facility] ([place]) (30988) Comment: Performed By: #### CBC, ADIF F, ANEU, BMP, GFR, APTT, PRO, TROPI ####[address] [address] WBC Auto #/vol 4.50 4.50-10.80 10 3/mcL Normal 2017 [facility]) (02514) Comment: Performed By: #### CBC, ADIF F, ANEU, BMP, GFR, APTT, PRO, TROPI ####[place] [address] bmp on 2017 Calcium mass conc 9.8 8.4-10.1 mg/dL Normal 2017 A [facility] ([place]) (31613) Comment: Performed By: #### CBC, ADIF F, ANEU, BMP, GFR, APTT, PRO, TROPI ####[place] [address] Chloride molar conc 104 98-110 mEq/L Normal 2017 [facility] ([place]) (75006) Comment: Performed By: #### CBC, ADIF F, ANEU, BMP, GFR, APTT, PRO, TROPI ####[place] [address] CO2 molar conc 29 22-32 mEq/L Normal 2017 [facility]) (13729) Comment: Performed By: #### CBC, ADIF F, ANEU, BMP, GFR, APTT, PRO, TROPI ####[place] [address] Creatinine mass conc 0.67 0.50-1.20 mg/dL Normal 8 [facility] ([place]) (0000 0) Comment: Performed By: #### CBC, ADIF F, ANEU, BMP, GFR, APTT, PRO, TROPI ####[place] [address] Electrolyte Balance 7.0 4.0-15.0 mEq/L Normal 2017 [facility] ([place]) (0000 0) Comment: Performed By: #### CBC, ADIF F, ANEU, BMP, GFR, APTT, PRO, TROPI ####[place] [address] Glucose mass conc 86 82-115 mg/dL Normal 2017 A [facility] ([place]) (67040) Comment: Performed By: #### CBC, ADIF F, ANEU, BMP, GFR, APTT, PRO, TROPI ####[place] [address] Potassium molar conc 4.1 3.5-5.0 mEq/L Normal 8 [facility] ([place]) (0000 0) Comment: Performed By: #### CBC, ADIF F, ANEU, BMP, GFR, APTT, PRO, TROPI ####[place] [address] Sodium molar conc 140 136-145 mEq/L Normal 2017 A [facility] ([place]) (57159) Comment: Performed By: #### CBC, ADIF F, ANEU, BMP, GFR, APTT, PRO, TROPI ####[place] [address] Urea nitrogen mass conc 12.0 8.0-22.0 mg/dL Normal 2017 [facility] ([place]) (24910) Comment: Performed By: #### CBC, ADIF F, ANEU, BMP, GFR, APTT, PRO, TROPI ####[place] [address] Urea nitrogen/Creatinine 17.9 10.0-22.0 ratio Normal 06-25 [facility] ([place]) (05130) Comment: Performed By: #### CBC, ADIF F, ANEU, BMP, GFR, APTT, PRO, TROPI ####[place] [address] aptt on 2017 aPTT Coag time (Bld) None Normal 8 [facility] ([place]) (47047) Comment: Result Comment: per Pauly Performed By: #### CBC, ADIF F, ANEU, BMP, GFR, APTT, PRO, TROPI ####[place] [address] aPTT Coag time (Bld) 30.6 25.0-35.0 seconds Normal 8 [facility] ([place]) (08889) Comment: Result Comment: For Heparin anticoagulation therapy, the recommendedtherapeutic range is: 54-77 seconds (APTT Correlationwith Anti-Xa therapeutic range of 0.3-0.7 units/ml).PLEASE REFERENCE THE PHARMACY PROTOCOL FOR DOSING. Performed By: #### CBC, ADIF F, ANEU, BMP, GFR, APTT, PRO, TROPI ####[place] [address] .neuabs on Neutrophil, Absolute 2.10 2.25-8.10 10 3/mcL Low 8 [facility] ([place]) (0000 0) Comment: Performed By: #### CBC, ADIF F, ANEU, BMP, GFR, APTT, PRO, TROPI ####[place] [address] .gfr on 2017 GFR >60 Normal 8 [facility] ([place]) (45267) Comment: Result Comment: GFR Populati on mean [...] F, ANEU, BMP, GFR, APTT, PRO, TROPI ####[place] [id number] GFR Non- >60 Normal 06-25 [facility] ([place]) (36258) Comment: Result Comment: GFR Populati on mean [...] F, ANEU, BMP, GFR, APTT, PRO, TROPI ####[address] [address] .auto diff on 06-25 Ammonia mass conc 0.30 0.09-1.40 10 3/mcL Normal 2017 A [facility] () [facility]) (06046) Comment: Performed By: #### CBC, ADIF F, ANEU, BMP, GFR, APTT, PRO, TROPI ####[place] [address] Basophils Auto #/vol 0.00 0.00-0.27 10 3/mcL Normal 8 [facility] ([facility]) [facility]) (47254) Comment: Performed By: #### CBC, ADIF F, ANEU, BMP, GFR, APTT, PRO, TROPI ####[place] [address] Basophils/100 WBC Auto (d) 0.2 0.0-2.5 % Normal 0 2017 [facility] ([place]) (0000 0) Comment: Performed By: #### CBC, ADIF F, ANEU, BMP, GFR, APTT, PRO, TROPI ####[place] [address] Eosinophils Auto #/vol 0.20 0.00-0.65 10 3/mcL Normal 018 [facility]) (51360) Comment: Performed By: #### CBC, ADIF F, ANEU, BMP, GFR, APTT, PRO, TROPI ####[address] [address] Eosinophils/100 WBC Auto 3.7 0.0-6.0 % Normal 06-25 [facility]) (10051) Comment: Performed By: #### CBC, ADIF F, ANEU, BMP, GFR, APTT, PRO, TROPI ####[address] [address] Lymphocytes Auto #/vol 1.90 0.90-4.32 10 3/mcL Normal 018 [facility]) (18556) Comment: Performed By: #### CBC, ADIF F, ANEU, BMP, GFR, APTT, PRO, TROPI ####[address] [address] Lymphocytes/100 WBC Auto 42.1 20.0-40.0 % High 06-25 [facility]) (60319) Comment: Performed By: #### CBC, ADIF F, ANEU, BMP, GFR, APTT, PRO, TROPI ####[address] [address] Monocytes/100 WBC Auto ([facility]) 6.4 2.0-13.0 % Normal 0 2017 [facility]) (39004) Comment: Performed By: #### CBC, ADIF F, ANEU, BMP, GFR, APTT, PRO, TROPI ####[address] [address] Neutrophils/100 WBC Auto 47.6 50.0-75.0 % Low 06-25 [facility]) (86505) Comment: Performed By: #### CBC, ADIF F, ANEU, BMP, GFR, APTT, PRO, TROPI ####[address] [address] Encounters Date Type Reason Provider Location 01-09-2018 Patient encounter AGUSTIN PENA [facility] ity:A MIKO AVILA 2017 - Patient encounter MIKO AVILA Facility: A 06-26-2017 YANN POWELL 03-22-2020 Patient encounter Esophageal YANN Alcala ziyad procedure disorders [facility] ospital E SCAR (85308) YANN Riley SCARNADIA AVILA UNKNOWN PROVIDER UNKNOWN PROVIDER UNKNOWN PROVIDER 03-12-2020 Patient encounter ACHAL JOHNNY Abdias [place] [facility] procedure [facility] J[facility]NNY ([address]999) MIKO AVILA UNKNOWN PROVIDER UNKNOWN PROVIDER UNKNOWN PROVIDER 03-12-2020 - Patient encounter ACHAL JOHNNY Abdias [place] 03-12-2020 procedure [facility] (40469) MIKO AVILA UNKNOWN PROVIDER UNKNOWN PROVIDER UNKNOWN PROVIDER 12-11-2019 - [facility]-11-2019 [facility] (91201) MIKO AVILA UNKNOWN PROVIDER UNKNOWN PROVIDER UNKNOWN PROVIDER 11-26-2019 - Patient encounter YANN giraldo 11-26-2019 [facility] (67070[facility] MIKO AVILA UNKNOWN PROVIDER UNKNOWN PROVIDER UNKNOWN PROVIDER 10-09-2019 - Patient encounter MIKO Calero [place] [facility] 10-09-2019 [facility] (37445) MIKO AVILA UNKNOWN PROVIDER UNKNOWN PROVIDER UNKNOWN PROVIDER 05-30-2019 - [facility] 05-30-2019 procedure [facility] J[facility] (05233) MIKO AVILA UNKNOWN PROVIDER UNKNOWN PROVIDER UNKNOWN PROVIDER 03-04-2020 - Telephone Yann Diallo [facility] in 03-04-2020 encounter [facility] [place] Comment: Rx Refills (Gabapentin) Procedures Procedure Name Date Provider Location Mammography 12-05-2019 [facility] ([id number]) Colonoscopy 04-08-2015 [facility] (67295) Plan of Treatment Plan Description Date Location DTAP,TDAP,TD (3 - Td) DTAP,TDAP,TD (3 - Td) 08-04-2021 [facility] (47654) MAMMOGRAM MAMMOGRAM 12-04-2020 [facility] (46584) COLONOSCOPY COLONOSCOPY 04-08-2020 [facility] (87490) INFLUENZA (#1) INFLUENZA (#1) 2020 [facility] (61911) ADVANCE DIRECTIVE ADVANCE DIRECTIVE 2019 [facility] inic DISCUSSION DISCUSSION (35132) BONE DENSITY BONE DENSITY 2019 [facility] (06585) PNEUMOVAX AGE 65 AND OVER PNEUMOVAX AGE 65 AND OVER 2019 [facility] WITH 5YR LOOKBACK (#1) WITH 5YR LOOKBACK (#1) (4 5487) DIABETES SCREEN DIABETES SCREEN 07-14-2014 [facility] (63744) LIPID SCREEN LIPID SCREEN 02-18-2014 [facility] (77472) SHINGRIX VACCINE (1 of 2) SHINGRIX VACCINE (1 of 2) 2004 [facility] (37494) HEPATITIS C SCREENING HEPATITIS C SCREENING 1972 [facility] (17954) HIV SCREENING HIV SCREENING 1972 [facility] (38813) Immunizations Vaccine Notes Status Date Location DT(PEDIATRIC) diphtheria and tetanus (completed) 01-07-2003 [facility] toxoids, adsorbed for (34462 ) pediatric use Influenza Vaccine, influenza virus vaccine, (completed) 03-14-2011 [facility] Split-Non Spec unspecified formulation (4 3485) Influenza Vaccine, influenza virus vaccine, (completed) 03-23-2010 [facility] Split-Non Spec unspecified formulation (4 0915) Pneumovax pneumococcal (completed) 05-11-2010 [facility] polysaccharide vaccine, (441 95) 23 valent Pneumovax pneumococcal (completed) 03-25-2008 [facility] polysaccharide vaccine, (441 95) 23 valent Tdap (Age 7+) tetanus toxoid, reduced (completed) 08-04-2011 [facility] [facility] diphtheria toxoid, and (4419 [id number]) acellular pertussis vaccine, adsorbed Payers Payer Name Policy Number Location MEDICARE OUTPATIENT [id number] [facility] ([id number]) [employer] [facility] MEDICARE [id number] [facility] ([place]) ([id number]) [facility] MEDICARE [id number] [facility] ([id number]) [id number] [facility] ([id number]) [id number] [facility] ([id number]) [id number] [facility] ([phone]) [id number] [facility] ([id number]) [id number] [facility] ([id number]) [id number] [facility] ([id number]) [id number] [facility] ([id number]) The following information is from the original human readable contentNo Payer Records FoundNo Payer Records FoundNo Payer Records FoundNo Payer Records FoundNo Payer Records FoundNo Payer Records FoundNo Payer Records FoundNo Payer Records FoundNo Payer Records FoundNo Payer Records FoundNo Payer Records Found Social History Type Social History Description Date Locat ion Tobacco smoking status Never smoker 12-19-2019 [facility] ([id number]) NHIS Tobacco use and exposure Never used 12-19-2019 [facility] ([id number]) Alcohol intake Current non-drinker of 12-19-2019 [facility] ([id number]) alcohol (finding) Sex Assigned At Not on file [facility] ([id number]) The following information is from the original [...] Documents on File Type Date Recorded Patient Disintegrator Explanati on Advance Directive(s) 05/27/2018 1:22 PM [...] BE BASED ON THE PRIMARY CLINICAL RECORDS. [facility] provides no warranty or guarantee of the accuracy or completeness of information in this document. UNRECOGNIZED CONTENT PROVIDED BELOW FOR UNRECOGNIZED SECTION INFORMATION SOURCE DATE CREATED AUTHOR AUTHOR'S ORGANIZATIO N 11/28/2017 [facility] DATE CREATED AUTHOR AUTHOR'S ORGANIZATIO N 01/09/2018 [facility] ([place]) DATE CREATED AUTHOR AUTHOR'S ORGANIZATIO N 06/03/2019 [facility] DATE CREATED AUTHOR AUTHOR'S ORGANIZATIO N 06/13/[address] [facility] DATE CREATED AUTHOR AUTHOR'S ORGANIZATIO N 12/29/2019 [facility] DATE CREATED AUTHOR AUTHOR'S ORGANIZATIO N 01/06/2020 [facility] DATE CREATED AUTHOR AUTHOR'S ORGANIZATIO N 03/06/2020 [facility] DATE CREATED AUTHOR AUTHOR'S ORGANIZATIO N 03/23/2020 [facility] UNRECOGNIZED CONTENT PROVIDED BELOW FOR UNRECOGNIZED SECTION Source Comments In the event this information is protected by the Federal Confidentiality of Alcohol and Drug Abuse Patient Records regulations: The Federal rules restrict any use of the information to criminally investigate or prosecute any alcohol or drug abuse patient.[facility] UNRECOGNIZED CONTENT PROVIDED BELOW FOR UNRECOGNIZED [...] 3x per day. Spoke with [facility] who states last refill was shipped 01/07/20. PATRICIA Lafleur Telephone Encounter - [place] - 03/04/2020 2:13 PM EDTPatient is requesting a refill of her Gabapentin be sent to [facility]. Last seen in office on . documented in this encounter
--- OUTSIDE RECORDS SUMMARY | 2020-03-23 18:13 | XMS RPT_ITS | CCD ---
:1955 External Reference #:[id number] Author Organization [employer] Care Team Providers [...] Onset Location Amoxicillin / Rash 05-04-2017 - [facility] Clavulanate (41452) Amoxicillin / Moderate (Severity Abdias Pom erene Clavulanate Mod[facility]) [facility] Iodine Swelling 11-14-2019 - [facility] (67967) Medications Medication Name Sig Date Prescriber Location Ascorbic Acid Ascorbic Acid [facility] Provider [facility] (VITAMIN C) chew Take Provider (94830 ) 500 mg by mouth once daily. 0 Active Comment: Take 500 mg by mouth once da daiana. Aspirin aspirin, enteric coated Ccf Provider [facility] (80635) (ASPIRIN, ENTERIC COATED) Provider 81 mg EC tablet Take 81 mg by mouth once daily. 0 Active Comment: Take 81 mg by mouth once tracy ly. Cholecalciferol Cholecalciferol, Vitamin 11-09-2011 Sanjay Da Silva [facility] D3, (VITAMIN D) 1,000 Sanjay Church (4 0465) unit Cap Take 1 capsule by mouth once daily. 0 11/09/2011 Active Comment: Take 1 capsule by mouth once daily. DULoxetine DULoxetine (CYMBALTA) 60 [facility]cf Provider [facility] (63754) mg capsule Take 60 mg by Provider mouth daily at bedtime. 0 Active Comment: Take 60 mg by mouth daily at bedtime. Etanercept etanercept(ENBREL 50 MG/ML 02-16-2010 Sonal Pimentel ([facility] ) [facility] (0.98 ML) SUB-Q SYRINGE) (Hist) Michael (61 195) takes once weekly. 0 Sonal K ([facility]) 02/16/2010 Active (Hist) Michael Comment: takes once weekly. Famotidine famotidine (PEPCID) 20 mg Ccf Provider [facility] (90166) tablet Take 40 mg by Provider mouth twice daily. 0 Active Comment: Take 40 mg by mouth twice da daiana. fluticasone fluticasone (FLONASE) 10-28-2014 Ccf Provider [facility] and [facility] 50 mcg/actuation nasal (4419 5) spray Folic Acid FOLIC ACID 1 mg ORAL 08-08-2010 Ccf Provider [facility] tablet (33709) gabapentin gabapentin (NEURONTIN) 01-05-2020 - Yann Diallo [facility] 300 mg capsule 07-05-2020 Yann Diallo (32871) Indications: RLS (restless legs syndrome) Take 3 capsules daily as instructed. 270 capsule 0 01/05/2020 07/05/2020 Active Comment: Take 3 capsules daily as ins tructed. Linseed Oil flaxseed 1,000 mg cap [facility] Provider [facility] (87628) Take by mouth. 0 Active Provider Comment: Take by mouth. Loratadine loratadine (CLARITIN) 10 [facility] Provider [facility] (19549) mg tablet Take 10 mg by Provider mouth as needed. 0 Active Comment: Take 10 mg by mouth as neede d. Lovastatin lovastatin (MEVACOR) 10 Ccf Provider [facility] (46892) mg tablet Take 10 mg by Provider mouth daily at bedtime. 0 Active Comment: Take 10 mg by mouth daily at bedtime. MAGNESIUM GLUCONATE magnesium gluconate Ccf Provider C [facility] (MAG-G) 27 mg (500 mg) Provider (4419 5) tab Take by mouth once daily. 0 Active Comment: Take by mouth once daily. Methotrexate methotrexate 2.5 mg tablet Ccf Provider C [facility] Take 2.5 mg by mouth every Provider ( 54648) Sunday. 0 Active Comment: Take 2.5 mg by mouth every F riday. MULTI-VITAMIN ORAL MULTI-VITAMIN ORAL Take Ccf Provide r [facility] by mouth. 0 Active Provider (43675) Comment: Take by mouth. Nitroglycerin NITROSTAT 0.4 mg 07-19-2015 Ccf Provider [facility] SL tablet (81301) VITAMIN B COMPLEX ORAL VITAMIN B COMPLEX Ccf Provider [facility] ORAL Take by mouth Provider (81980) once daily. 0 Active Comment: Take by mouth once daily. 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 cerebrovascular disease cerebrovascular disease (58838) Other gastrointestinal Irritable bowel syndrome Active 2014 - [facility] disorders with diarrhea (19293) Other hereditary and Restless legs Active 02-24-2019 - [facility] degenerative nervous (56138) system conditions Residual codes; Obstructive sleep apnea Active 04-05-2015 - [facility] [place] [facility] unclassified syndrome (48859) Rheumatoid arthritis and Rheumatoid arthritis Active [facility] related disease (42918) Thyroid disorders Multinodular goiter Active 04-05-2015 - [facility] (43289) Transient cerebral Transient cerebral Active 04-05-2015 - [facility] ischemia ischemia (74749) Unclassified Patient encounter status Active 02-16-2009 - [facility] (25919) Past or Other Problems Category Problem Name Status Date Location Diabetes mellitus Impaired fasting Completed 02-16-2009 - [facility] without complication glycaemia (22215) Neoplasms of unspecified Neoplasm of uncertain Completed [facility] nature or uncertain behavior of skin (441 95) behavior Nonmalignant breast Inversion of nipple Completed 05-15-2018 - [facility] [place] [facility] conditions (09076) Other bone disease and Osteopenia Completed 02-12-2009 - [facility] musculoskeletal (67527) deformities Other circulatory H/O: TIA Completed 02-24-2019 - [facility] disease (37135) Other screening for Cardiovascular stress Completed 02-12-2009 - [facility] suspected conditions test abnormal (25603 ) (not mental disorders or infectious disease) Results Result Name Value Range Unit Interpretation Flag Date Location sgpt (alt) on 03-12 ALT [Catalytic activity/Vol] 17 8 - 35 U/L Normal 1 [facility] ( 41091) Comment: Performed By: #### [id number] ## ## [facility],[address] [place] [address] sgot (ast) on 03-12 AST/SGOT 22 13 - 39 U/L Normal 03-12-2020 [facility] (27904) Comment: Performed By: #### [id number] ## ## [facility],[address] [place] [address] 39677 sedrate on SEDRATE 13 0 - 30 mm/hr Normal 03-12-2020 [facility] (90161) Comment: Performed By: #### [id number] ## ## [facility],[address] [place] [address] 22568 creatinine on 03-12 Creatinine [Mass/Vol] 0.8 0.6 - 1.2 mg/dl Normal 03-12-20 [facility] ( 87503) Comment: Performed By: #### [id number] ## ## [facility],[address] [place] [address] 35377 cbc + diff on 03-12 Basophils (Bld) 0.00 0.00 - 0.10 x10EE3/UL Normal 03-12-2020 [facility] [#/Vol] [facility] (35962) Comment: Performed By: #### [id number] ## ## [facility],[address] [place] [address] 24875 Basophils/100 WBC (Bld) 0.7 0.0 - 2.0 % Normal 2019 [facility] ( 59743) Comment: Performed By: #### [id number] ## ## [facility],[address] [place] [address] 08690 CBC + DIFF Normal 03-12-2020 [facility] (60075) Comment: Result Comment: CBC-COMPLETE BLOOD COUNT Performed By: #### [id number] ## ## [facility],[address] [place] [address] 20102 Eosinophils (Bld) 0.30 0.00 - 0.50 x10EE3/UL Normal 03-12-2020 [facility] [#/Vol] [facility] (15273) Comment: Performed By: #### [id number] ## ## [facility],[address] [place] [address] 61454 Eosinophils/100 WBC (Bld) 6.8 0.0 - 7.0 % Normal 100 [facility] ( 80489) Comment: Performed By: #### [id number] ## ## [facility],[address] [place] [address] 15700 Erythrocyte distribution 14.7 12.0 - 15.6 % Normal [facility] width (RBC) [Ratio] Hospital (14498) Comment: Performed By: #### [id number] ## ## [facility],[address] [place] [address] 95226 Hematocrit (Bld) [Volume 41.2 34.0 - 46.0 % Normal [facility]] [facility] ( 61325) Comment: Performed By: #### [id number] ## ## [facility],[address] [place] [address] 32738 Hemoglobin (Bld) 14.0 12.0 - 16.0 g/dl Normal 03-12-2020 [facility] [Mass/Vol] [facility] (43240) Comment: Performed By: #### [id number] ## ## [facility],[address] [place] [address] 40619 Lymphocytes (Bld) 1.70 0.80 - 2.80 x10EE3/UL Normal 03-12-2020 [facility] [#/Vol] [facility] (00788) Comment: Performed By: #### [id number] ## ## [facility],[address] [place] [address] 06022 Lymphocytes/100 WBC (Bld) 35.1 20.0 - 45.0 % Normal [facility] ( 48082) Comment: Performed By: #### [id number] ## ## [facility],[address] [place] [address] 13860 MANUAL DIFF N/A Normal 03-12-2020 [facility] (94161) Comment: Performed By: #### [id number] ## ## [facility],[address] [place] [address] 05405 MCH (RBC) [Entitic mass] 32 27 - 33 pg Normal 03-12 [facility] ( 24502) Comment: Performed By: #### [id number] ## ## [facility],[address] [place] [address] 65217 MCHC (RBC) [Mass/Vol] 34 32 - 36 X10 3 Normal 03-12-[address] [facility] ( 26448) Comment: Performed By: #### [id number] ## ## [facility],[address] [place] [address] 44242 MCV (RBC) [Entitic vol] 94 80 - [address] [facility] ( 22139) Comment: Performed By: #### [id number] ## ## [facility],[address] [place] [address] 11913 Monocytes (Bld) 0.50 0.20 - 1.00 x10EE3/UL Normal 03-12-2020 [facility] [#/Vol] [facility] (77474) Comment: Performed By: #### [id number] ## ## [facility],[address] [place] [address] 40697 MONOS % 9.7 0.0 - 10.0 % Normal 03-12-2020 [facility] (37723) Comment: Performed By: #### [id number] ## ## [facility],[address] [place] [address] 68470 Morphology Kasi (Bld) [Interp] N/A Normal 03-12-2020 [facility] ( 36431) Comment: Performed By: #### [id number] ## ## [facility],[address] [place] [address] 66548 Neutrophils (Bld) 2.30 1.50 - 7.10 x10EE3/UL Normal 03-12-2020 [facility] [#/Vol] [facility] (98775) Comment: Performed By: #### [id number] ## ## [facility],[address] [place] [address] 78299 Neutrophils/100 WBC (Bld) 47.7 46.0 - 76.0 % Normal [facility] ( 30466) Comment: Performed By: #### [id number] ## ## [facility],[address] [place] [address] 52348 Platelet mean volume 7.9 6.6 - 10.5 fl Normal 03-12-20 [facility] (d) [Entitic vol] [facility] (91973) Comment: Result Comment: AUTOMATED DI FFERENTIAL Performed By: #### [id number] ## ## [facility],[address] [place] [address] 46263 Platelets (Bld) 209 150 - 450 x10EE3/UL Normal 03-12-2020 [facility] [#/Vol] [facility] (44602) Comment: Performed By: #### [id number] ## ## [facility],[address] [place] [address] 78009 RBC (Bld) [#/Vol] 4.38 4.10 - 5.30 x 10EE6/UL Normal 0 [facility] (83933) Comment: Performed By: #### [id number] ## ## [facility],[address] [place] [address] 90244 WBC (Bld) [#/Vol] 4.9 4.5 - 10.8 x 10EE3/UL Normal 03-12-2020 [facility] ( 66194) Comment: Performed By: #### [id number] ## ## [facility],[address] [place] [address] 77325 c-reactive protein on 2020-03-12 CRP [Mass/Vol] <0.10 0.00 - 1.00 mg/L Normal 03-12-2020 [facility] ( 98474) Comment: Performed By: #### [id number] ## ## [facility],[address] [place] [address] 78436 bun on 2020-03-12 Urea nitrogen [Mass/Vol] 13 6 - 20 mg/dl Normal 03-12 [facility] ( 47752) Comment: Performed By: #### [id number] ## ## [facility],[address] [place] [address] 22216 albumin plasma on Albumin [Mass/Vol] 4.2 3.4 - 4.8 g/dL Normal 03-12-2020 [facility] ( 24947) Comment: Performed By: #### [id number] ## ## [facility],[address] [place] [address] 79927 cnpn on 2020-03-04 CNPN Telephone (NEURBA) Normal 03-04-2020 [place] CLAIRE Ross ([id number]) 1955 F Medical Date Time Provider Department Center 03/04/20 YANN DIALLO JR NEURBA ([id number]) During your visit today, we recorded the following informati on about you: El Prasad 03/04/2020 2:14 PM Signed Patient is requesting a refill of her Gabapentin be se nt to [facility]. Last seen in office on 12/15/19. PATRICIA Lafleur 03/04/2020 4:09 PM Signed Spoke with patient who states she only has a wee k left. Verified she received last refill end of December and is taking it 3x per day. Spoke with Same at [facility] who s tates last refill was shipped [...] 2019-12 OBSOLETE Refill (NEMOWS) Normal 01-05-2020 [facility] Valera ([id number]) 1955 [facility] Date Time Provider Department ([id number]) 01/05/20 YANN DIALLO JR During your visit [...] 01/05/20 progress on 2019-12 PROGRESS HNO ID: [id number] Normal 12-19-2019 [facility] Author: Masha San [facility] Service: ? ([id number]) Author Type: Physician Type: Progress Notes Filed: 12/19/2019 11:06 AM Note Text: Masha San MD [facility] [address] [place], [place] [id number] SUBJECTIVE Chief Complaint: Patient presents with: Yearly [...] CHOLECYSTECTOMY 2012 - COLONOSCOP W/ OR W/O [facility] SPEC 08/13 Colonoscopy - COLONOSCOP W/ OR W/O [facility] SPEC 04/03/13 Colonoscopy - COLONOSCOP W/ OR W/O [facility] SPEC 04/08/15 Colonoscopy - EGD W/O OR W/BRUSH/WASH 04/03/13 EGD - FOOT LEFT OP SURGERY 06/2014 - HEART CATHETERIZATION 08/04/08 AND 10/2013 Normal Heart Cath --- [facility], Dr. Pnea - LAPAROSCOPIC CHOLEYCYSTECTOMY 09/11 Cholecystectomy, lap - [...] monthly breast awareness and call with a pa concerns. Follow up: Return if symptoms worsen or fail to improve. Masha San MD 12/19/2019 11:03 AM hemogram on 2019-12 Erythrocyte distribution 14.2 11.7-14.4 % Normal 12-18 [facility] width (RBC) [Ratio] System (94561) Comment: Performed By: #### CBC1 #### [address] [address] Hematocrit (Bld) [Volume 41.9 34.1-44.9 % Normal 12-18 [facility] fraction] System (00 000) Comment: Performed By: #### CBC1 #### [address] [address] Hemoglobin (Bld) 13.8 11.2-15.7 g/dL Normal 12-19-2019 [facility] [Mass/Vol] System (0 0000) Comment: Performed By: #### CBC1 #### [facility] [address] [place], [place] [address] MCH (RBC) [Entitic mass] 31.4 25.6-32.2 pg Normal 12-18 [facility] (00 000) Comment: Performed By: #### CBC1 #### [facility] [address] [place], [place] [address] MCHC (RBC) [Mass/Vol] 32.9 31.6-34.8 % Normal 12-19-19 20 [facility] (50373) Comment: Performed By: #### CBC1 #### [facility] [address] [place], [place] [address] MCV (RBC) [Entitic vol] 95.2 79.4-94.8 fl High 2019 [facility] (19276) Comment: Performed By: #### CBC1 #### [facility] [address] [place], [place] [address] Platelet mean volume (Bld) 10.0 9.4-12.3 fl Normal [facility] [Entitic vol] System (98336) Comment: Performed By: #### CBC1 #### [facility] [address] [place], [place] [address] Platelets (Bld) [#/Vol] 186 182-369 thou/cmm Normal 2019 [facility] (00 000) Comment: Performed By: #### CBC1 #### [facility] [address] [place], [place] [address] RBC (Bld) [#/Vol] 4.40 3.93-5.22 mil/cmm Normal 12-19-2019 [facility] (00 000) Comment: Performed By: #### CBC1 #### [facility] [address] [place], [place] [address] RDW SD 48.8 36.4-46.3 fl High 12-19-2019 [facility] (52895) Comment: Performed By: #### CBC1 #### [address] [address] WBC (Bld) [#/Vol] 4.86 3.98-10.04 thou/cmm Normal 12-19-2019 [facility] (00 000) Comment: Performed By: #### CBC1 #### [address] [address] cnov on 2019-12-19 [facility] Office Visit (AGGBRCR) Normal 12-18-2 020 [place] [facility] CLAIRE GUEVARA ([id number]) 1955 F Medical Date Time Provider Department Center 12/19/19 11:00 AM MASHA SAN AGGBRCR ([id number]) During your visit today, we recorded the following informati on about you: Pulse Blood pressure Weight Height 91/minute 117/84 60.8 kg 1.626 m Rani Skinner RN 12/19/2019 10:56 AM Signed Denies any new palpable masses skin changes or p ain. Mammogram of 12/05/19 was negative PEDRO LUIS Jacobs MD 12/19/2019 11:06 AM Signed Masha San MD [facility] [address] [place] [address] SUBJECTIVE Chief Complaint: Patient presents with: Yearly [...] CHOLECYSTECTOMY 2012 - COLONOSCOP W/ OR W/O [facility] SPEC 08/13 Colonoscopy - COLONOSCOP W/ OR W/O [facility] SPEC 04/03/13 Colonoscopy - COLONOSCOP W/ OR W/O [facility] SPEC 04/08/15 Colonoscopy - EGD W/O OR W/BRUSH/WASH 04/03/13 EGD - FOOT LEFT OP SURGERY 06/2014 - HEART CATHETERIZATION 08/04/08 AND 10/2013 Normal Heart Cath --- [facility], Dr. Pena - LAPAROSCOPIC CHOLEYCYSTECTOMY 09/11 Cholecystectomy, [...] monthly breast awareness and call with a pa concerns. Follow up: Return if symptoms worsen [...] a ny concerns. Referring Provider: MIKO AVILA [[id number]] Allergies As of Date: 12/19/2019 Noted Allergy [...] * Take 81 mg by mouth once sahne * MULTI-VITAMIN ORAL Take by mouth. * [...] 12/19/19 progress on 2019-12 PROGRESS HNO ID: [id number] Normal 12-15-2019 [place] Author: Yann Diallo Jr. Clinic Service: ? [place] Author Type: Physician ([id number]) Type: Progress Notes Filed: 12/15/2019 6:08 PM [...] for neuro follow up after hospitalization at [facility]. Notes reviewed . Per record: Since pt was last seen pt was admitted at [facility] f or ? TIA. [place] records reviewed. Pt had experienced numbness and [...] the start of Plavix. Records reviewed from [place]. MRI, MRA negative, LDL 104. Hemoglobi n A1c 5.7. She does follow with cardiology. . I will order an echo. Las t echo on record was from 2018. Patient agrees and will follow-up with Dr. Diallo in [place] in 6-8 weeks. States now having problems [...] history. She did have sleep study at [facility] 2 weeks ago. I do no t [...] No - Drug use: No PHYSICAL EXAMINATION [facility] 04/11/2005 GENERAL EXAM: General appearance: NAD, pleasant. [...] that OSH sleep lab indicated not sleep case management specialist ea on PSG. Records requested to verify. [...] with more than 50% of the total pcdq-bj-duha time of the visit in counseling / coordination of care. PDMP website checked and validated. All prescriptions have b een APPROPRIATELY filled. No suspicious activity was identified. 12/15/2019 by MD petey Carter on 2019-12-15 CNOV Office Visit (FERNANDO) Normal 12-15-[address] [place] [address] Alberto GUEVARACLAIRE Antoine ([id number]) 1955 [facility] Date Time Provider Department (66830) 12/15/19 4:40 PM YANN DIALLO JR During [...] r neuro follow up after hospitalization at [facility]. Notes reviewed. P er record: Since pt was last seen pt was admitted at [facility] for ? TIA. [place] records reviewed. Pt had exp erienced numbness [...] the start of Plavix. Records reviewed from [place]. MRI, MRA negative, LDL 104. Hemoglobin A1c 5.7. She does follow with cardiology. . I will order an echo. Last echo on record was from 2018. Patient agrees and will follow-up with Dr. Diallo in [place] in 6-8 weeks. States now having problems [...] history. She did have sleep study at [facility] 2 weeks ago. I do not have [...] with more than 50% of the total tzbq-jq-hayy time of the visit in counseling / coordination of care. PDMP website checked and validated. All prescrip tions have been APPROPRIATELY filled. No suspicious activity was ident ified. 12/15/2019 by Yann Diallo MD Referring Provider: YANN DIALLO JR [[id number]] Allergies As of Date: 12/15/2019 Noted Allergy Reaction AUGMENTIN (AMOXICILLIN-POT CLAVUL*05/04/2017 2 - Rash CONTRAST DYE (IODINE) 11/14/2019 7 - Swelling Date Reviewed: 12/15/2019 Reviewed by: Yann Diallo Jr. - Fully Assessed Reason for Visit: Established Patient [175] Cmt: [facility] Primary Visit Diagnosis:Transient cerebral ische rosanne, unspecified type [G45.9] Other Visit Diagnoses:Obstructive sleep apnea (adult) (pedia tric) [G47.33] RLS (restless legs syndrome) [G25.81] Cognitive impairment [R41.89] Order(s):CBC [SQCB] Order #: [id number] FUTURE CONSULT TO NEUROPSYCH [5430810] Order #: [id number]: 1 FU TURE gabapentin (NEURONTIN) 300 mg [...] 8 - 35 U/L Normal 0 12-11-2019 [facility] ( 14139) Comment: Performed By: #### [id number] ## ## [place] [id number] sgot (ast) on 12-10 AST/SGOT 26 13 - 39 U/L Normal 12-11-2019 [facility] (93009) Comment: Performed By: #### [id number] ## ## [address] [address] sedrate on SEDRATE 14 0 - 30 mm/hr Normal 12-11-2019 [facility] (32089) Comment: Performed By: #### [id number] ## ## [address] [address] creatinine on 12-10 Creatinine [Mass/Vol] 0.8 0.6 - 1.2 mg/dl Normal 12-11-19 [facility] ( 76491) Comment: Performed By: #### [id number] ## ## [facility],[address] [place] [address] 59587 cbc + diff on 12-10 Basophils (Bld) 0.00 0.00 - 0.10 x10EE3/UL Normal 12-11-2019 [facility] [#/Vol] [facility] (59503) Comment: Performed By: #### [id number] ## ## [facility],[address] [place] [address] 08540 Basophils/100 WBC (Bld) 0.7 0.0 - 2.0 % Normal 2019 [facility] ( 07798) Comment: Performed By: #### [id number] ## ## [facility],[address] [place] [address] 16169 CBC + DIFF Normal 12-11-2019 [facility] (93119) Comment: Result Comment: CBC-COMPLETE BLOOD COUNT Performed By: #### [id number] ## ## [facility],[address] [place] [address] 13703 Eosinophils (Bld) 0.20 0.00 - 0.50 x10EE3/UL Normal 12-11-2019 [facility] [#/Vol] [facility] (25259) Comment: Performed By: #### [id number] ## ## [facility],[address] [place] [address] 91583 Eosinophils/100 WBC (Bld) 5.2 0.0 - 7.0 % Normal [facility] ( 71314) Comment: Performed By: #### [id number] ## ## [facility],[address] [place] [address] 66968 Erythrocyte distribution 14.4 12.0 - 15.6 % Normal [facility] (RBC) [Ratio] [facility] (92143) Comment: Performed By: #### [id number] ## ## [facility] hospital,[address] [place] [address] 82236 Hematocrit (Bld) [Volume 40.8 34.0 - 46.0 % Normal [facility] ( 39383) Comment: Performed By: #### [id number] ## ## [facility],[address] [place] [address] 78108 Hemoglobin (Bld) 14.0 12.0 - 16.0 g/dl Normal 12-11-2019 [facility] [Mass/Vol] [facility] (12394) Comment: Performed By: #### [id number] ## ## [facility],[address] [place] [address] 98181 Lymphocytes (Bld) 1.60 0.80 - 2.80 x10EE3/UL Normal 12-11-2019 [facility] [#/Vol] [facility] (09450) Comment: Performed By: #### [id number] ## ## [facility],[address] [place] [address] 98616 Lymphocytes/100 WBC (Bld) 36.5 20.0 - 45.0 % Normal [facility] ( 69523) Comment: Performed By: #### [id number] ## ## [facility],[address] [place] [address] 14577 MANUAL DIFF N/A Normal 12-11-2019 [facility] (29982) Comment: Performed By: #### [id number] ## ## [facility],[address] [place] [address] 19297 MCH (RBC) [Entitic mass] 32 27 - 33 pg Normal 12-10 [facility] ( 50879) Comment: Performed By: #### [id number] ## ## [facility],[address] [place] [address] 98865 MCHC (RBC) [Mass/Vol] 34 32 - 36 X10 3 Normal 12-11-[address] [facility] ( 29142) Comment: Performed By: #### [id number] ## ## [facility],[address] [place] [address] 72297 MCV (RBC) [Entitic vol] 94 80 - [address] [facility] ( 36008) Comment: Performed By: #### [id number] ## ## [facility],[address] [place] [address] 02676 Monocytes (Bld) 0.40 0.20 - 1.00 x10EE3/UL Normal 12-11-2019 [facility] [#/Vol] [facility] (53191) Comment: Performed By: #### [id number] ## ## [facility],[address] [place] [address] 15116 MONOS % 9.8 0.0 - 10.0 % Normal 12-11-2019 [facility] (96858) Comment: Performed By: #### [id number] ## ## [facility],[address] [place] [address] 65161 Morphology Kasi (Bld) [Interp] N/A Normal 12-11-2019 [facility] ( 20154) Comment: Performed By: #### [id number] ## ## [facility],[address] [place] [address] 22302 Neutrophils (Bld) 2.10 1.50 - 7.10 x10EE3/UL Normal 12-11-2019 [facility] [#/Vol] [facility] (44937) Comment: Performed By: #### [id number] ## ## [facility],[address] [place] [address] 28088 Neutrophils/100 WBC (Bld) 47.8 46.0 - 76.0 % Normal [facility] ( 39636) Comment: Performed By: #### [id number] ## ## [facility],[address] [place] [address] 78866 Platelet mean volume 7.9 6.6 - 10.5 fl Normal 12-11-19 [facility] (Bld) [Entitic vol] [facility] (47029) Comment: Result Comment: AUTOMATED DI FFERENTIAL Performed By: #### [id number] ## ## [facility],[address] [place] [address] 21227 Platelets (Bld) 235 150 - 450 x10EE3/UL Normal 12-11-2019 [facility] [#/Vol] [facility] (93676) Comment: Performed By: #### [id number] ## ## [facility],[address] [place] [address] 14542 RBC (Bld) [#/Vol] 4.32 4.10 - 5.30 x 10EE6/UL Normal 0 [facility] (29869) Comment: Performed By: #### [id number] ## ## [facility],[address] [place] [address] 54067 WBC (Bld) [#/Vol] 4.4 4.5 - 10.8 x 10EE3/UL Low 12-11-2019 [facility] ( 61486) Comment: Performed By: #### [id number] ## ## [facility],[address] [place] [address] 87321 c-reactive protein on 2019-12-11 CRP [Mass/Vol] <0.10 0.00 - 1.00 mg/L Normal 12-11-2019 [facility] ( 03318) Comment: Performed By: #### [id number] ## ## [facility],[address] [place] [address] 92453 bun on 2019-12-11 Urea nitrogen [Mass/Vol] 12 6 - 20 mg/dl Normal 12-10 [facility] ( 46530) Comment: Performed By: #### [id number] ## ## [facility],[address] [place] [address] 89146 albumin plasma [ccl] on 2019-12-11 Albumin [Mass/Vol] 4.2 3.4 - 4.8 g/dL Normal 12-11-2019 [facility] ( 57819) Comment: Performed By: #### [id number] ## ## [facility],[address] [place] [address] 10872 [facility] screening on 28-11-25 [facility] SCREENING Final Report Normal 12-05-2019 [facility] DATE OF EXAM: Dec 05 2019 1:57[facility] AAW [id number] - [facility] SCREENING / (51273) PROCEDURE REASON: screening Physician Interpretation #[id number] - [facility] SCREENING BILATERAL DIGITAL SCREENING MAMMOGRAM WITH CAD: 12/05/2019 HISTORY: Screening / Screening Mammogram-patient reports no symptoms. RESULT: TECHNIQUE: The study was acquired using full field digital t echnology and interpreted from soft copy. Current study was also evaluated with a Computer Aided Detec tion (CAD). Comparison is made to exams dated: 12/04/2018 mammogram - [facility] and 03/02/2018 mammogram - [facility]. There are scattered fibroglandular elements in [...] M.D., Dr. Miko Avila, ph: , fax: [phone] Internal Affairs Investigator(s): Zahra Farris, [employer] letter sent: Normal over 40 Mammogram [...] Family Medicine, and Medical/Surgical Oncology, the [facility] has carefully reviewed the data and reached [...] providers when to sto p screening mammograms. Sales Ledger Administrator: Cecelia Transcribe Date/Time: Dec 05 2019 1:44P Dictated by : MELISSA STODDARD MD This examination was interpreted and the report reviewed and electronically signed by: MELISSA STODDARD MD on Dec 05 2019 2:04PM EST cnco on 2019-12-05 CNCO HNO ID: [id number] Normal 12-05-2019 [facility] Author: [facility] Coordinator Center ([id number]) Service: ? Author Type: Physician Type: Letter Filed: 12/08/2019 11:34 PM Note Text: [facility] [address] [place] [id number] December 05, 2019 PID: [id number] Claire Guevara [address] [address] Dear Ms. Guevara, We are pleased to [...] report will be kept on file at [facility] as part of your permanent medical record and are available f or your continuing care. Thank you for allowing us to help in meeting your health car e needs. Sincerely, Dr. Stoddard Interpreting Radiologist [facility] (Normal over 40) cnpn on 2019-11-25 CNPN Telephone (NEURBA) Normal 11-25-2019 [facility] CLAIRE GUEVARA ([id number]) 1955 F Medical Date Time Provider Department Center 11/25/19 YANN DIALLO JR ([id number]) During your visit today, we recorded the [...] Swelling Date Reviewed: 11/14/2019 Reviewed by: Sanjiv ([facility]) Josue - Fully Assessed Reason for Visit: Orders [681] Primary Visit Diagnosis:Obstructive sleep apnea (adult ) (pediatric) [G47.33] Order(s):PAP TITRATION PSG (CPAP, BIPAP, ASV) [[id number]] Or pat #: [id number] FUTURE Prescriptions as of 11/25/2019 Sig: DULOXETINE [...] on 11/25/19 CNPN Telephone (NEURGN) Normal 11-25-2019 [place] CLAIRE Ross ([id number]) 1955 F Medical Date Time Provider Department Center 11/25/19 QUINTIN SANTOS (ACID OPERATOR, ROLLING MACHINE OPERATOR) NEURGN ([id number]) During your visit today, we recorded the following informati on about you: Quintin Santos APRN.ROLLING MACHINE OPERATOR, ROLLING MACHINE OPERATOR 11/25/2019 10:21 AM Signed Please let [...] Swelling Date Reviewed: 11/14/2019 Reviewed by: Sanjiv ([facility]) Josue - Fully Assessed Reason for Visit: [...] 11/25/19 progress on 2019-11 PROGRESS HNO ID: [id number] Normal 11-14-2019 [facility] Author: Quintin ([employer]) TORIN Santos [facility] Service: ? ([id number]) Author Type: Nurse Practitioner Type: Progress Notes Filed: 11/14/2019 3:02 PM Note Text: Neurology Follow Up Note Date: November 14, 2019 Patient Name: Claire Guevara HPI: This is MsDavid Guevara a 64 year old female who p resents to [facility] Neurology for follow up of TIA. Pt was last se en by Dr. Diallo 08/28 for ZAID, RLS, and migraines. Since pt was last seen pt was admitted at [facility] f or ? TIA. [place] records reviewed. Pt had experienced numbness and [...] the start of Plavix. Records reviewed from [place]. MRI, MRA negative, LDL 104. Hemoglobi n A1c 5.7. She does follow with cardiology. . I will order an echo. Las t echo on record was from 2017. Patient agrees and will follow-up with Dr. Diallo in [place] in 6-8 weeks. Medications: DULoxetine (CYMBALTA) 60 [...] 10 mg tablet Take 10 mg by [facility] once daily. PMH/PSH/FH/ALLERGIES: Reviewed from last [...] is to follow-up with Dr. Katarzyna Santos, ACID OPERATOR.[facility], Department of Neurology 30 minutes were completed [id number] 2019-[facility]14 CNPN Telephone (NEURGN) Normal 11-14-2019 [facility] CLAIRE GUEVARA ([id number]) 1955 F Medical Date Time Provider Department Center 11/14/19 QUINTIN SANTOS (ACID OPERATOR, ROLLING MACHINE OPERATOR) ROYCE ([id number]) During your visit today, we recorded the following informati on about you: [place] 11/14/2019 3:05 PM Signed Patient was scheduled for an echo on 11/24/19 at 1100 am at [facility]. Patient was given the date/time/location Allergies As of Date: 11/14/2019 Noted Allergy Reaction AUGMENTIN (AMOXICILLIN-POT CLAVUL*05/04/2017 2 - Rash CONTRAST DYE (IODINE) 11/14/2019 7 - Swelling Date Reviewed: 11/14/2019 Reviewed by: Sanjiv [facility] Josue - Fully Assessed Reason for Visit: [...] 2019-11-14 CNOV Office Visit (NEURGN) Normal 11-14-19 [place] [facility] CLAIRE GUEVARA ([id number]) 1955 F Medical Date Time Provider Department Center 11/14/19 1:00 PM QUINTIN SANTOS (ACID OPERATOR, ROLLING MACHINE OPERATOR) NEURGN ([id number]) During your visit today, we recorded the following informati on about you: Pulse Blood pressure Weight Height 93/minute 122/66 62.6 kg 1.626 m Quintin Santos APRN.ROLLING MACHINE OPERATOR, ROLLING MACHINE OPERATOR 11/14/2019 3:02 PM Signed Neurology Follow Up Note Date: November 14, 2019 Patient Name: Claire Guevara HPI: This is Ms. Claire Guevara a 64 year old female who presents to [facility] Neurology for follow up of TIA. Pt was last seen by Dr. Diallo 08/28 for ZAID, RLS, and migraines. Since pt was last seen pt was admitted at [facility] for ? TIA. [place] records reviewed. Pt had exp erienced numbness [...] the start of Plavix. Records reviewed from [place]. MRI, MRA negative, LDL 104. Hemoglobin A1c 5.7. She does follow with cardiology. . I will order an echo. Last echo on record was from 2017. Patient agrees and will follow-up with Dr. Diallo in [place] in 6-8 weeks. Medications: DULoxetine (CYMBALTA) 60 [...] follow-up with Dr. Diallo. Quintin Santos APRN.TORIN [facility], Department of Neurology 30 minutes were completed [id number] Quintin Santos APRN.TORIN HARKINS 11/14/2019 1:19 PM Addendum Get Echo Continue with Plavix, asa and lovastatin Follow up with Dr. Diallo in [place] Referring Provider: YANN DIALLO JR [[id number]] Allergies As of Date: 11/14/2019 Noted Allergy Reaction AUGMENTIN (AMOXICILLIN-POT CLAVUL*05/04/2017 2 - Rash CONTRAST DYE (IODINE) 11/14/2019 7 - Swelling Date Reviewed: 11/14/2019 Reviewed by: Sanjiv Ceballos - Fully Assessed Reason for Visit: Established Patient [175] Cmt: ER follow up- [facility] Primary Visit Diagnosis:Numbness and tingling [R20.0, R20.2] Other Visit Diagnoses:Transient cerebral ischemia, unspeci fied type [G45.9] Palpitation [R00.2] H/O: stroke [Z86.73] Order(s):ECHO [[id number]] Order #: [id number]: 1 FUTURE perflutren lipid microspheres (DEFINITY) 1.1 [...] lovastatin Follow up with Dr. Diallo in [place] Prescriptions ordered this encounter Disp Refills Start [...] Disposition: Return 6-8 weeks with Yoel in [place]. Follow-up and Disposition History Recorded Encounter Status:Closed by QUINTIN SANTOS CNP on 11/14/19 ot-mra neck without contrast import on 2019-11-06 OT-MRA Neck Images were obtained outside of [facility] Normal 11-06-2019 [facility] without Contrast [id number] [place] ([id number]) IMPORT mr-mra head only without contrast import on 2019-11-06 MR-MRA Head ONLY Images were obtained outside of [facility] Normal 11-06-2019 [facility] without Contrast [id number] ([id number]) IMPORT mr-brain without contrast import on 2019-11-06 MR-Brain without Images were obtained outside of [facility] Normal 11-06-2019 [facility] Contrast IMPORT [id number] [place] ([id number]) ct-brain/head without contrast import on 2019-11-05 CT-Brain/Head Images were obtained outside of [facility] Normal 11-05-2019 [place] without Contrast [id number] [facility] IMPORT [place] ([id number]) cr-chest 1 view import on 2019-11-05 CR-Chest 1 View Images were obtained outside of [facility] Normal 11-05-2019 [facility] IMPORT [id number] [place] ([id number]) cnpn on 2019-11-05 CNPN Telephone (NEURBA) Normal 11-05-2019 [place] CLAIRE GUEVARA ([id number]) 1955 F Medical Date Time Provider Department Center 11/05/19 YANN DIALLO JR ([id number]) During your visit today, we recorded the [...] go to ER today. She was at [facility] office when I spoke with he r. [...] BETH BEDOLLA on 11/05/19 cnpn on 2019-10-13 [facility] (NEURBA) Normal 10-13-2019 [place] CLAIRE Ross ([id number]) 1955 F Medical Date Time Provider Department Center 10/13/19 YANN DIALLO JR ([id number]) During your visit today, we recorded the [...] 8 - 35 U/L Normal 0 10-09-2019 [facility] ( 95200) Comment: Performed By: #### [id number] ## ## [place] [address] sgot (ast) on 10-08 AST/SGOT 22 13 - 39 U/L Normal 10-09-2019 [facility] (67172) Comment: Performed By: #### [id number] ## ## [place] 443704 sedrate on SEDRATE 16 0 - 30 mm/hr Normal 10-09-2019 [facility] (67968) Comment: Performed By: #### [id number] ## ## [place] [address] creatinine on 10-08 Creatinine [Mass/Vol] 0.8 0.6 - 1.2 mg/dl Normal 10-09-19 [facility] ( 81609) Comment: Performed By: #### [id number] ## ## [facility],[address] [place] [address] 10665 cbc + diff on 10-08 Basophils (Bld) 0.00 0.00 - 0.10 x10EE3/UL Normal 10-09-2019 Abelino nikolay [place] [#/Vol] [facility] (40651) Comment: Performed By: #### [id number] ## ## [facility],[address] [place] [address] 86826 Basophils/100 WBC (Bld) 0.4 0.0 - 2.0 % Normal 2019 [facility] ( 15666) Comment: Performed By: #### [id number] ## ## [facility],[address] [place] [address] 08963 CBC + DIFF Normal 10-09-2019 [facility] (60606) Comment: Result Comment: CBC-COMPLETE BLOOD COUNT Performed By: #### [id number] ## ## [facility],[address] [place] [address] 60790 Eosinophils (Bld) 0.30 0.00 - 0.50 x10EE3/UL Normal 10-09-2019 [facility] [#/Vol] [facility] (37891) Comment: Performed By: #### [id number] ## ## [facility],[address] [place] [address] 11457 Eosinophils/100 WBC (Bld) 6.3 0.0 - 7.0 % Normal 09-11 [facility] ( 06603) Comment: Performed By: #### [id number] ## ## [facility],[address] [place] [address] 84838 Erythrocyte distribution 15.8 12.0 - 15.6 % [facility] width (RBC) [Ratio] Hospital (62825) Comment: Performed By: #### [id number] ## ## [facility],[address] [place] [address] 14751 Hematocrit (Bld) [Volume 42.0 34.0 - 46.0 % Normal [facility] ( 11715) Comment: Performed By: #### [id number] ## ## [facility],[address] [place] [address] 31386 Hemoglobin (Bld) 14.1 12.0 - 16.0 g/dl Normal 10-09-2019 [facility] [Mass/Vol] [facility] (91674) Comment: Performed By: #### [id number] ## ## [facility],[address] [place] [address] 97519 Lymphocytes (Bld) 1.60 0.80 - 2.80 x10EE3/UL Normal 10-09-2019 [facility] [#/Vol] [facility] (57125) Comment: Performed By: #### [id number] ## ## [facility],[address] [place] [address] 78967 Lymphocytes/100 WBC (Bld) 31.6 20.0 - 45.0 % Normal [facility] ( 33658) Comment: Performed By: #### [id number] ## ## [address] [address] MANUAL DIFF N/A Normal 10-09-2019 [facility] (83229) Comment: Performed By: #### 739140 ## ## [address] [address]274 MCH (RBC) [Entitic mass] 31 27 - 33 pg Normal 10-08 [facility] ( 80033) Comment: Performed By: #### [id number] ## ## [address] [address] MCHC (RBC) [Mass/Vol] 34 32 - 36 X10 3 Normal 10-09-[address] [facility] ( 93590) Comment: Performed By: #### [id number] ## ## [facility],[address] [place] [address] 92038 MCV (RBC) [Entitic vol] 93 80 - [address] [facility] ( 54880) Comment: Performed By: #### 106194 ## ## [facility],[address] [place] [address] 80938 Monocytes (Bld) 0.60 0.20 - 1.00 x10EE3/UL Normal 10-09-2019 [facility] [#/Vol] [facility] (69946) Comment: Performed By: #### [id number] ## ## [facility],[address] [place] [address] 43872 MONOS % 11.9 0.0 - 10.0 % High 10-09-2019 [facility] (49738) Comment: Performed By: #### [id number] ## ## [facility],[address] [place] [address] 79314 Morphology Kasi (Bld) [Interp] N/A Normal 10-09-2019 [facility] ( 63705) Comment: Performed By: #### [id number] ## ## [facility],[address] [place] [address] 00987 Neutrophils (Bld) 2.50 1.50 - 7.10 x10EE3/UL Normal 10-09-2019 [facility] [#/Vol] [facility] (82659) Comment: Performed By: #### [id number] ## ## [facility],[address] [place] [address] 68276 Neutrophils/100 WBC (Bld) 49.8 46.0 - 76.0 % Normal [facility] ( 14013) Comment: Performed By: #### [id number] ## ## [facility],[address] [place] [address] 05683 Platelet mean volume 7.7 6.6 - 10.5 fl Normal 10-09-19 [facility] (Bld) [Entitic vol] [facility] (60896) Comment: Result Comment: AUTOMATED DI FFERENTIAL Performed By: #### [id number] ## ## [facility],[address] [place] [address] 50516 Platelets (Bld) 191 150 - 450 x10EE3/UL Normal 10-09-2019 [facility] [#/Vol] [facility] (87351) Comment: Performed By: #### [id number] ## ## [facility],[address] [place] [address] 49700 RBC (Bld) [#/Vol] 4.52 4.10 - 5.30 x 10EE6/UL Normal 0 [facility] (69650) Comment: Performed By: #### [id number] ## ## [facility],[address] [place] [address] 19555 WBC (Bld) [#/Vol] 4.9 4.5 - 10.8 x 10EE3/UL Normal 10-09-2019 [facility] ( 95333) Comment: Performed By: #### [id number] ## ## [facility],[address] [place] [address] 66381 c-reactive protein on 2019-10-09 CRP [Mass/Vol] <0.10 0.00 - 1.00 mg/L Normal 10-09-2019 [facility] ( 85939) Comment: Performed By: #### [id number] ## ## [facility],[address] [place] [address] 11370 bun on 2019-10-09 Urea nitrogen [Mass/Vol] 12 6 - 20 mg/dl Normal 10-08 [facility] ( 82984) Comment: Performed By: #### [id number] ## ## [facility],[address] [place] [address] 41563 albumin plasma on Albumin [Mass/Vol] 4.2 3.4 - 4.8 g/dL Normal 10-09-2019 [facility] ( 82221) Comment: Performed By: #### [id number] ## ## [facility],[address] [place] [address] on 2019-08-28 CNPN Telephone (NEURGN) Normal 08-28-2019 [place] [facility] CLAIRE GUEVARA ([id number]) 1955 F Medical Date Time Provider Department Center 08/28/19 YANN DIALLO JR ([id number]) During your visit today, we recorded the following informati on about you: El Prasad 08/28/2019 3:44 PM Signed Pre-certification of PSG Insurance Company Name[facility] [employer] Spoke with: Miss Cuevas Pre-certification number: [id number] [facility] 08/28/19-11/26/19 Patient wants test scheduled at [facility] El Prasad El Prasad 08/28/2019 3:44 PM Signed Patient insurance advised to get authorization for a split night study - in case this is required. She said if the second study is not n eeded the auth still covers just the PSG. Did you want to put a split study order in for me to send to [facility]? Yann Diallo MD 08/28/2019 9:12 PM [...] at 800 pm. Order was faxed to [phone]. Patient was notified. Allergies As of Date: [...] (PPP) [Relative 1.00 0.90-1.30 {INR} Normal 08-24 [place] [facility] time] System (00 000) Comment: Result Comment: Vitamin K An tagonist (VKA) Therapeutic Range: INR 2 to 3 (Target INR of 2.5) Note: For patients treated w ith VKA drugs, such as warfarin, the [place] [employer] 2012 Guideline recommends a therapeutic INR range of 2 to 3 (target INR of 2.5). This recommendation includes high -risk patients with antiphospholipid syndrome with previous arter ial or venous thromboembolism, current-generation mechanica l or bioprosthetic aortic heart valve replacement. Note: Patients with entry level mechanical engineer al aortic valve replacement and additional risk [...] 70: [phone] Performed By: #### GPT #### [facility] [address] [place], [place] [address] PT Coag (PPP) [Time] 10.4 9.7-13.0 sec Normal 0 [facility] (10328) Comment: Performed By: #### GPT #### [facility] [address] [place], [place] [address] progress on 2019-08 PROGRESS HNO ID: [id number] Normal 08-25-2019 [place] Author: Yann Diallo Jr. General Service: ? Medical Author Type: Physician Center Type: Progress Notes (92026) Filed: 08/25/2019 11:19 AM Note Text: ESTABLISHED [...] visit, with more than 50% of the [facility] mrco-co-izgp time of the visit in counseling / coordination of care. hemogram on 2019-08 Erythrocyte distribution 15.6 11.7-14.4 % High 08-24 [facility] width (RBC) [Ratio] System (36641) Comment: Performed By: #### CBC1 #### [address] [address] Hematocrit (Bld) [Volume 41.8 34.1-44.9 % Normal 08-24 [facility] fraction] System (00 000) Comment: Performed By: #### CBC1 #### [address] [address] Hemoglobin (Bld) 13.4 11.2-15.7 g/dL Normal 08-25-2019 [facility] [Mass/Vol] System (0 0000) Comment: Performed By: #### CBC1 #### [address] [address] MCH (RBC) [Entitic mass] 30.4 25.6-32.2 pg Normal 08-24 [facility] (00 000) Comment: Performed By: #### CBC1 #### [facility] [address] [place], [place] [address] MCHC (RBC) [Mass/Vol] 32.1 31.6-34.8 % Normal 08-25-19 20 [facility] (69148) Comment: Performed By: #### CBC1 #### [facility] [address] [place], [place] [address] MCV (RBC) [Entitic vol] 94.8 79.4-94.8 fl Normal 2019 [facility] (00 000) Comment: Performed By: #### CBC1 #### [facility] [address] [place] [id number] Platelet mean volume (Bld) 10.7 9.4-12.3 fl Normal [facility] [Entitic vol] System (15798) Comment: Performed By: #### CBC1 #### [facility] 1 [place], [place] [address] Platelets (Bld) [#/Vol] 177 182-369 thou/cmm Low 2019 [facility] (00 000) Comment: Performed By: #### CBC1 #### [facility] 1 [place], [place] [address] RBC (Bld) [#/Vol] 4.41 3.93-5.22 mil/cmm Normal 08-25-2019 [facility] (00 000) Comment: Performed By: #### CBC1 #### [facility] 1 [place], [place] [address] RDW SD 55.0 36.4-46.3 fl High 08-25-2019 [facility] (90304) Comment: Performed By: #### CBC1 #### [facility] 1 [place], [place] [address] WBC (Bld) [#/Vol] 5.22 3.98-10.04 thou/cmm Normal 08-25-2019 [facility] (00 000) Comment: Performed By: #### CBC1 #### [facility] 1 [place], [place] [address] cnpn on 2019-08-25 CNPN Telephone (NEURGN) Normal 08-25-2019 [facility] CLAIRE GUEVARA ([id number]) 1955 F Medical Date Time Provider Department Center 08/25/19 YOEL MARTINEZ, YANN Roca NEUR ([id number]) During your visit today, we recorded the [...] Fully Assessed Reason for Visit: Patient Question [8213] Cmt: Neurology - Cholesterol Prescriptions as of [...] CNOV Office Visit (NEURGN) Normal 08-25-19 20 [facility] CLAIRE GUEVARA ([id number]) 1955 F Medical Date Time Provider Department Center 08/25/19 10:30 AM YANN DIALLO JR NEUR ([id number]) During your visit today, we recorded the [...] No - Drug use: No PHYSICAL EXAMINATION [facility] 04/11/2005 Blood pressure 114/66, pulse 81, height [...] with more than 50% of the total tzmy-rf-gkwb time of the visit in counseling / coordination of care. Yann Diallo MD 08/25/2019 10:52 AM Signed 1. Increase gabapentin to 900mg nightly (3 of the 300mg caps ules). Referring Provider: YANN DIALLO JR [[id number]] Allergies As of Date: 08/25/2019 Noted Allergy [...] sleep hygiene [Z72.821] Order(s):CBC [SQCBC] Order #: [id number] FUTURE PROTHROMBIN TIME/PT [SQPT] Order #: [id number] FUTURE POLYSOMNOGRAM (PSG) [7262522] Order #: [id number] FUTURE gabapentin (NEURONTIN) 300 mg capsuleTake 3 [...] Provider Note - ED v2: Normal 1 [facility] ED v2 Chart Review: [facility] ([id number]) ED NOTES ED NOTES: Nontoxic appearing female [...] SIGNS: T PRBP SpO2O2(LPM) %FiO2 Method 08-Jun-2019 09:50:00-36.52053204/71 97 CLINICAL IMPRESSION Diagnosis/Annotation: ED Dx Name:Viral [...] of care. This note was generated using Patient [employer]versation [employer]. It may contain errors in wording, punctuation, or spelling. CRITICAL CARE TIME Is this a critically ill patient: no Electronic Signatures: Kyle Rodriguez (ACID OPERATOR-ROLLING MACHINE OPERATOR) (Signed 08-Jun-2019 11:28) Authored: Provider Note - ED v2 Last Updated: 08-Jun-2019 11:28 by Kyle Rodriguez (AP RN-ROLLING MACHINE OPERATOR) rheumatoid factor [ccl] on 2019-06-02 Rheumatoid Factor 280 <16 IU/mL High 06-02-2019 [facility] (85408) Comment: Result Comment: [place] [facility] [address] [place] [address] Salvatore King III, M.D. [id number] Performed By: #### [id number] ## ## [facility],[address] [place] [address] 314[address] hepatitis c ab ia w/confirm [ccl] on 2019-06-02 Hepatitis C Ab IA Negative NEGAT Normal 06-02-2019 [facility] (74672) Comment: Result Comment: [place] [facility] [address] [place] [address] Salvatore King III, M.D. [id number] Performed By: #### [id number] ## ## [facility],[address] [place] [address] hep b surface ag [ccl] on 2019-06-02 Hepatitis B Surf. Ag Negative NEGAT Normal [address] [place] [address] ( [address]) Comment: Result Comment: [place] [facility] [address] [place] [address] Salvatore King III, M.D. [id number] Performed By: #### [id number] ## ## [facility],[address] [place] [address] 527[address] hep b surface ab, quant [ccl] on 2019-06-02 HepB SurfaceAb,Quant <8.00 <8.[address] [facility] (03271) Comment: Result Comment: No evidence of antibodies to Hepatitis B surface antigen. [facility] [place] [id number] Salvatore King III, M.D. [id number] Performed By: #### [id number] ## ## [facility],[address] [place] [address] hep b core ab, total (igm & igg) [ccl] on 2019-06-02 Hep B Core Ab,Total Negative NEGAT Normal 06-02-2019 [facility] ( 98621) Comment: Result Comment: [place] [address] [place] [address] Salvatore King III, M.D. [id number] Performed By: #### [id number] ## ## [facility],[address] [place] [address] cyclic citrullinated pep ab igg [ccl] on 2019-06-02 CCP Antibody, IgG 59 <20 Units High 06-02-2019 [facility] (00131) Comment: Result Comment: < 20 units: Negative 20-39 units: Weak Positive 40-59 units: Moderate Positi ve > 60 units: Strong Positive The following results were o btained with the [employer] QUANTA Lite CCP3 IgG LISSY. Anti-CCP values obtained wit h different manufacturers' assay methods may not be used interchangeably. The ma gnitude of the reported IgG levels cannot be correlated to an endpoint ti ter. [facility] [place] [address] Salvatore King III, M.D. [id number] Performed By: #### [id number] ## ## [facility],[address] [place] [address] 13745 ccp antibody, igg o n 2019-06-02 CCP Antibody, IgG 59 <20 Units High 06-02-2019 [facility] [place] [facility] (96591) Comment: Performed By: #### RF, AHBSQ , AHBCOT, HBSAG, AHCV1B #### [facility] s Routine Lab [address] [place] [address] #### ANAIFS ### # [facility] Immunology [address] [place] [address] #### CCP #### [facility] s Immuno Assay [address] [place] [address] shravan by ifa screen [ccl] on 2019-06-02 SHRAVAN Pattern Homogeneous Normal 06-02-2019 [facility] (56473) Comment: Result Comment: [place] [facility] [address] [place] [address] Salvatore King III, M.D. [id number] Performed By: #### [id number] ## ## [facility],[address] [place] [address] SHRAVAN Titer 1:160 NEGAT Abnormal 06-02-2019 [facility] (54821) Comment: Performed By: #### [id number] ## ## [facility],[address] [place] [address] Nuclear Ab IF (S) Positive NEGAT Abnormal 06-02-2019 [facility] [[facility]] [facility] ( 56523) Comment: Result Comment: Normal range : negative at <1:80 serum dilution. Performed By: #### [id number] ## ## [facility],[address] [place] [address] tb by quantiferon *outside use only* on 2019-06-01 Interpretation TBNEG Normal 06-01-2019 [facility] (11416) Comment: Performed By: #### INTPGP ## ## [facility] Immunology [address] [place] [address] Mitogen minus Nil 8.48 Normal 06-01-2019 C [facility] (04812) Comment: Performed By: #### INTPGP ## ## [place] [facility]0 [place] [phone] TB NIL 0.07 IU/mL Normal 06-01-2019 [facility] (87404) Comment: Performed By: #### INTPGP ## ## [place] [facility] [address] [place] [phone] TB Result NEGAT Negative Normal 06-01-2019 [facility] (71312) Comment: Performed By: #### INTPGP ## ## [place] [facility] [address] [place] [phone] TB1 Ag minus Nil 0.00 <0.35 IU/mL Normal 06-01-2019 [facility] (26463) Comment: Performed By: #### INTPGP ## ## [place] [facility] [address] [place] [phone] TB2 Ag minus Nil 0.00 <0.35 IU/mL Normal 06-01-2019 [facility] (44846) Comment: Performed By: #### INTPGP ## ## [place] [phone] quantiferon tb incubated [ccl] on 2019-06-01 Interpretation No evidence of current or Normal 06-01-2019 [facility] previous infection with [facility] Mycobacterium tuberculosis. (76053) Comment: Result Comment: [place] [facility] [address] [place] [address] Salvatore King III, M.D. [id number] Performed By: #### [id number] ## ## [facility],[address] [place] [address] Mitogen minus Nil 8.48 Normal 06-01-2019 [facility] (37317) Comment: Performed By: #### [id number] ## ## [facility],[address] [place] [address] 537[address] TB NIL 0.07 IU/mL Normal 06-01-2019 [facility] (57725) Comment: Performed By: #### [id number] ## ## [facility] [place] [address] TB Result Negative NEGAT Normal 06-01-2019 [facility] (89683) Comment: Performed By: #### [id number] ## ## [facility],[address] [place] [address] 232[address] TB1 Ag minus Nil 0.00 <0.35 IU/mL Normal 06-01-2019 [facility] (96045) Comment: Performed By: #### [id number] ## ## [facility],[address] [place] [address] 388[address] TB2 Ag minus Nil 0.00 <0.35 IU/mL Normal 06-01-2019 [facility] (43292) Comment: Performed By: #### [id number] ## ## [facility],[address] [place] [address] shravan by ifa on 06-01 SHRAVAN Pattern HOMO Normal 06-01-2019 [place] [facility] (21862) Comment: Performed By: #### RF, AHBSQ , AHBCOT, HBSAG, AHCV1B #### [facility] Routine Lab [facility] [place] [address] #### ANAIFS ### # [facility] Immunology [address] [place] [phone] #### CCP #### [facility] Immuno Assay [address] [place] [phone] SHRAVAN Titer D160 Negative Abnormal 06-01-2019 [facility] (20762) Comment: Performed By: #### RF, AHBSQ , AHBCOT, HBSAG, AHCV1B #### [facility] Routine Lab [address] [place] [phone] #### ANAIFS ### # [facility] Immunology [address] [place] [phone] #### CCP #### [facility] Immuno Assay [address] [place] [phone] Nuclear Ab IF (S) Positive Negative Abnormal 06-01-2019 C [facility] [Titer] Reference Lab (77942) Comment: Performed By: #### RF, AHBSQ , AHBCOT, HBSAG, AHCV1B #### [facility] Routine Lab [address] [place] [phone] #### ANAIFS ### # [facility] Immunology [address] [place] [phone] #### CCP #### [facility] Immuno Assay [address] [place] [phone] rheumatoid factor o n 2019-05-31 Rheumatoid Factor 280 <16 IU/mL High 05-31-2019 [facility] [place] [facility] (66820) Comment: Performed By: #### RF, AHBSQ , AHBCOT, HBSAG, AHCV1B #### [facility] Routine Lab [address] [place] [phone] #### ANAIFS ### # [facility] Immunology [address] [place] [phone] #### CCP #### [facility] Immuno Assay [address] [place] [phone] hepb surfaceab,quant on 2019-05-31 HepB SurfaceAb,Quant <8.00 <8.00 Normal 9 [facility] (16437) Comment: Performed By: #### RF, AHBSQ , AHBCOT, HBSAG, AHCV1B #### [facility] Routine Lab [address] [place] [phone] #### ANAIFS ### # [place] [facility] [address] [place] [phone] #### CCP #### [facility] Immuno Assay [address] [place] [phone] hepatitis b surf. ag on 2019-05-31 Hepatitis B Surf. Ag NEGAT Negative Normal 9 [facility] (15001 ) Comment: Performed By: #### RF, AHBSQ , AHBCOT, HBSAG, AHCV1B #### [facility] s Routine Lab [address] [place] [phone] #### ANAIFS ### # [facility] [address] [place] [phone] #### CCP #### [facility] Immuno Assay [address] [place] [phone] hep c ab ia w/conf on 2019-05-31 Hepatitis C Ab IA NEGAT Negative Normal 05-31-2019 [facility] [place] [facility] (48323) Comment: Performed By: #### RF, AHBSQ , AHBCOT, HBSAG, AHCV1B #### [facility] Routine Lab [address] [place] [phone] #### ANAIFS ### # [facility] [place] [address] [place] [phone] #### CCP #### [facility] Immuno Assay [address] [place] [phone] hep b core ab,total on 2019-05-31 Hep B Core Ab,Total NEGAT Negative Normal 05-31-2019 [facility] (54799) Comment: Performed By: #### RF, AHBSQ , AHBCOT, HBSAG, AHCV1B #### [facility] Routine Lab [address] [place] [address] #### ANAIFS ### # [facility] Immunology [address] [place] [address] #### CCP #### [facility] Immuno Assay [address] [place] [address] vitamin d, 25 hydroxy on 2019-05-30 VitD 83.04 30.00 - 100 ng/mL Normal 05-30-2019 [facility] (48511) Comment: Result Comment: 25-OHD3 shlomo cates both [...] D2 Not Esta blished Performed By: #### [id number] ## ## [facility],[address] [place] [address] 50544 uric acid on 2018-06 Urate [Mass/Vol] 5.0 2.3 - 6.6 mg/dl Normal 05-30-2019 [facility] ( 21497) Comment: Performed By: #### [id number] ## ## [facility],[address] [place] [address] 49513 sgpt (alt) on 05-30 ALT [Catalytic activity/Vol] 16 8 - 35 U/L Normal 1 07-31-2018 [facility] ( 21995) Comment: Performed By: #### [id number] ## ## [facility],[address] [place] [address] 47765 sgot (ast) on 05-30 AST/SGOT 25 13 - 39 U/L Normal 05-30-2019 [facility] (06904) Comment: Performed By: #### [id number] ## ## [facility],[address] [place] [address] 50165 sedrate on SEDRATE 15 0 - 30 mm/hr Normal 05-30-2019 [facility] (40855) Comment: Performed By: #### [id number] ## ## [facility],[address] [place] [address] 56207 cbc + diff on 05-30 Basophils (Bld) 0.00 0.00 - 0.10 x10EE3/UL Normal 05-30-2019 [facility] [#/Vol] [facility] (88087) Comment: Performed By: #### [id number] ## ## [facility],[address] [place] [address] 93033 Basophils/100 WBC (Bld) 0.7 0.0 - 2.0 % Normal 2018 [facility] ( 10728) Comment: Performed By: #### [id number] ## ## [facility],[address] [place] [address] 32630 CBC + DIFF Normal 05-30-2019 [facility] (97733) Comment: Result Comment: CBC-COMPLETE BLOOD COUNT Performed By: #### [id number] ## ## [facility],[address] [place] [address] 87027 Eosinophils (Bld) 0.20 0.00 - 0.50 x10EE3/UL Normal 05-30-2019 [facility] [#/Vol] [facility] (59555) Comment: Performed By: #### [id number] ## ## [facility],[address] [place] [address] 17670 Eosinophils/100 WBC (Bld) 5.6 0.0 - 7.0 % Normal 05-12 [facility] ( 36882) Comment: Performed By: #### [id number] ## ## [facility],[address] [place] [address] 04718 Erythrocyte distribution 14.4 12.0 - 15.6 % Normal [facility] (RBC) [Ratio] Hospital (55782) Comment: Performed By: #### [id number] ## ## [facility],[address] [place] [address] 59757 Hematocrit (Bld) [Volume 41.7 34.0 - 46.0 % Normal [facility] ( 31810) Comment: Performed By: #### [id number] ## ## [facility],[address] [place] [address] 28367 Hemoglobin (Bld) 13.8 12.0 - 16.0 g/dl Normal 05-30-2019 [facility] [Mass/Vol] [facility] (22720) Comment: Performed By: #### 290430 ## ## [facility],[address] [place] [address] 10359 Lymphocytes (Bld) 1.60 0.80 - 2.80 x10EE3/UL Normal 05-30-2019 [facility] [#/Vol] [facility] (48570) Comment: Performed By: #### [id number] ## ## [facility],[address] [place] [address] 40557 Lymphocytes/100 WBC (Bld) 42.0 20.0 - 45.0 % Normal [facility] ( 95723) Comment: Performed By: #### [id number] ## ## [facility],[address] [place] [address] 69295 MANUAL DIFF N/A Normal 05-30-2019 [facility] (69487) Comment: Performed By: #### [id number] ## ## [facility],[address] [place] [address] 70071 MCH (RBC) [Entitic mass] 30 27 - 33 pg Normal 05-30 [facility] ( 90064) Comment: Performed By: #### [id number] ## ## [facility],[address] [facility] [address] MCHC (RBC) [Mass/Vol] 33 32 - 36 X10 3 Normal 05-30-[address] [facility] ( 43462) Comment: Performed By: #### [id number] ## ## [facility],[address] [place] [address] 33179 MCV (RBC) [Entitic vol] 92 80 - [address] [facility] ( 40585) Comment: Performed By: #### [id number] ## ## [facility],[address] [place] [address] 50581 Monocytes (Bld) 0.40 0.20 - 1.00 x10EE3/UL Normal 05-30-2019 [facility] [place] [#/Vol] [facility] (26146) Comment: Performed By: #### [id number] ## ## [facility],[address] [place] [address] 56698 MONOS % 11.2 0.0 - 10.0 % High 05-30-2019 [facility] (25924) Comment: Performed By: #### 657388 ## ## [facility],[address] [place] [address] 15077 Morphology Kasi (Bld) [Interp] N/A Normal 05-30-2019 [facility] ( 60766) Comment: Performed By: #### [id number] ## ## [facility],[address] [place] [address] 90778 Neutrophils (Bld) 1.50 1.50 - 7.10 x10EE3/UL Normal 05-30-2019 [facility] [#/Vol] [facility] (86258) Comment: Performed By: #### [id number] ## ## [facility] [address]12 Neutrophils/100 WBC (Bld) 40.5 46.0 - 76.0 % Low [facility] ( 05680) Comment: Performed By: #### [id number] ## ## [facility],[address] [place] [address] 00224 Platelet mean volume 8.4 6.6 - 10.5 fl Normal 05-30-20 [facility] (Bld) [Entitic vol] [facility] (98270) Comment: Result Comment: AUTOMATED DI FFERENTIAL Performed By: #### [id number] ## ## [facility],[address] [place] [address] 15304 Platelets (d) 168 150 - 450 x10EE3/UL Normal 05-30-2019 [facility] [#/Vol] [facility] (87702) Comment: Performed By: #### [id number] ## ## [facility],[address] [place] [address] 75509 RBC (Bld) [#/Vol] 4.52 4.10 - 5.30 x 10EE6/UL Normal 9 [facility] (25954) Comment: Performed By: #### [id number] ## ## [facility],[address] [place] [address] 99385 WBC (Bld) [#/Vol] 3.8 4.5 - 10.8 x 10EE3/UL Low 05-30-2019 [facility] ( 11000) Comment: Performed By: #### 192525 ## ## [facility],[address] [place] [address] 01683 calcium total on 29-05-20 Calcium [Mass/Vol] 9.9 8.6 - 10.2 mg/dl Normal 05-30-2019 [facility] ( 68150) Comment: Performed By: #### [id number] ## ## [facility],[address] [place] [address] 54272 c-reactive protein on 2019-05-30 CRP [Mass/Vol] <0.10 0.00 - 1.00 mg/L Normal 05-30-2019 [facility] ( 49599) Comment: Performed By: #### [id number] ## ## [facility],[address] [place] [address] 55233 bun/creat egfr (non-) on 2019-05-30 Age - Reported 63 years Normal 05-30-2019 [facility] (84366) Comment: Performed By: #### [id number] ## ## [facility],[address] [place] [address] 95882 Creatinine [Mass/Vol] 0.8 0.6 - 1.2 mg/dl Normal 05-30-20 [facility] ( 83702) Comment: Performed By: #### [id number] ## ## [facility],[address] [place] [address] 63937 GFR/1.73 sq M >60 60 - 999 mL/min/{1.73_m2} Normal 9 [facility] non-blacks MDRD (000 00) (S/P/Bld) [Vol rate/Area] [...] PATIENTS 18 AND OLDER. Performed By: #### [id number] ## ## [facility],[address] [place] [address] 42504 Urea nitrogen [Mass/Vol] Normal 05-30 [facility] (73680) Comment: Result Comment: BUN/CREATINI NE eGFR NON-) Performed By: #### [id number] ## ## [facility],[address] [place] [address] 48409 Urea nitrogen [Mass/Vol] 10 6 - 20 mg/dl Normal 05-30 [facility] ( 39543) Comment: Performed By: #### [id number] ## ## [facility],[address] [place] [address] 85684 albumin plasma on Albumin [Mass/Vol] 4.2 3.4 - 4.8 g/dL Normal 05-30-2019 [facility] ( 60943) Comment: Performed By: #### [id number] ## ## [facility],[address] [place] [address] 18582 obsolete on 2017-10 OBSOLETE Orders Only Normal 11-02-2017 Hilda (MEPRAD) --------CLAIRE GUEVARA [facility] ( ) 1955 F CHTDate Jeevan e Provider Department11/02/17 YANN DIALLO JR During your visit (00 000) today, we recorded the follo wing information about you:Allergies As of Date: 11/02/2017 Noted Allergy ReactionAUGMENTIN (AMOXICILL IN-POT CLAVUL*05/04/2017 2 - RashDate Reviewed: 10/26/2017Reviewed by: Yann Diallo Jr. - Fully AssessedPrimary Visit Diagnosis:Obstructive sleep apnea (adult) (pediatric) [G47.33]Order(s):CPAP FULL F MALCOLM MASK [[id number]] Order #: [id number]: 1Prescriptions as of 11/02/2017 Sig: GABAPENTIN 300 [...] FOR*Follow-up and Disposition History RecordedEncounter Number: [id number] Status:Closed by YANN DIALLO on 11/02/17 neurology consultation on 2017-06-27 Neurology Consultation Normal 018 [facility] ([place] (54124) vl carotid us/doppler complete on 2017-06-26 VL Carotid US/Doppler Complete Normal 06-26-2017 [facility] [place] (12105) progress note on 28-06-15 Protein mass conc Normal 06-26-2017 [facility] [place] (94881) mri spine cervical w/o contrast on 2017-06-26 MRI SPINE ORIGINALMRI SPINE CERVICAL Normal [facility] CERVICAL W/O W/O CONTRAST [facility] ([place]) CONTRAST Statement: .. TIA, neck (42847) pain. Concern for stenosis.. Transient left foot [...] stenosis. Uncovertebral spurring and facet arthropathy cause peitsdba-oc-ropcwg right, mild left foraminal stenosis. C7-T1: No [...] BRAIN W/O ORIGINALMRA/MRI BRAIN W/O Normal 06-26-2017 [facility] CONTRAST CONTRAST Clinical Fo undation ([place]) Statement: tia. TECHNIQUE: (37516) Multiplanar, multisequence MRI imaging of the brain was obtained. [id number]-[id number] MRA of the head. Source data and [...] of the head. Interpreted By: Dereje Timmons [facility] Report By: Dereje Timmons MDElectronically Signed By: Dereje Timmons MD Dictated Date: 06/26/2017 12:42:44 PM Prelim Date: 06/26/2017 12:42:44 PM Sign Date: 06/26/2017 12:47:58 PM lipid on 2017-06-26 Cholesterol in HDL mass 43 40-59 mg/dL Normal 2017 [facility] ([place]) (0000 0) Comment: Result Comment: HDL Referenc e Interval:Less than 40 Low - high risk60 or above Optimal/lowers risk Performed By: #### CBC, ADIF F, ANEU, BMP, GFR, APTT, PRO, TROPI ####[place] [address] Cholesterol in LDL mass 132 0-129 mg/dL High 2017 [facility] ([place]) (0000 0) Comment: Result Comment: LDL is a sherin culated result and requires a 12-hr fast.LDL Reference Interval:Less than 100 [id number] Near or above [id number] Borderline high [id number] High [id number] and above Very high risk Performed By: #### CBC, ADIF F, ANEU, BMP, GFR, APTT, PRO, TROPI ####[place] [address] Cholesterol mass conc 194 50-199 mg/dL Normal 06-26-19 18 [facility] ([place]) (0000 0) Comment: Result Comment: Cholesterol Reference Interval:Less than 200 [id number] Borderline high [id number] and above High risk Performed By: #### CBC, ADIF F, ANEU, BMP, GFR, APTT, PRO, TROPI ####[place] [address] Triglyceride mass conc 97 3-149 mg/dL Normal 018 [facility] ([place]) (0000 0) Comment: Result Comment: Triglyceride Reference Interval:Less than 150 [id number] Borderline high [id number] High [id number] or higher Very high risk Performed By: #### CBC, ADIF F, ANEU, BMP, GFR, APTT, PRO, TROPI ####[place] [address] inpatient patient summary on 2017-06-26 Inpatient Patient Summary Normal 06-11 [facility]) ([id number]) echocardiogram, adult on 2017-06-26 Echocardiogram, Adult Normal 06-26-19 18 [facility] ([place]) ([address]265) discharge summary o n 2017-06-26 Discharge Summary Normal 06-26-2017 A [facility] ([place]) ([id number]) depart summary on 2 Depart Summary Normal 06-26-2017 [facility]) (62819) cbc on 2017-06-26 Erythrocyte distribution 15.2 11.5-15.5 % Normal 06-26 Critical access hospital Auto Ratio (RBC) [facility]) (56068) Comment: Performed By: #### CBC, ADIF F, ANEU, BMP, GFR, APTT, PRO, TROPI ####[place] [address] Hematocrit Auto Volume 40.0 34.0-46.0 % Normal 018 [facility] Fraction (Bld) ([place]) (25735) Comment: Performed By: #### CBC, ADIF F, ANEU, BMP, GFR, APTT, PRO, TROPI ####[place] [address] Hemoglobin mass conc 13.3 12.0-16.0 G/dL Normal 8 [facility] (Bld) [facility] ([place]) (27186) Comment: Performed By: #### CBC, ADIF F, ANEU, BMP, GFR, APTT, PRO, TROPI ####[place] [address] MCH Auto Entitic mass 30.9 27.0-33.0 pg Normal 06-26-19 18 [facility] (RBC) ([place]) (0000 0) Comment: Performed By: #### CBC, ADIF F, ANEU, BMP, GFR, APTT, PRO, TROPI ####[place] [address] MCHC Auto mass conc 33.2 32.0-36.0 G/dL Normal 06-26-2017 [facility] (RBC) ([place]) (0000 0) Comment: Performed By: #### CBC, ADIF F, ANEU, BMP, GFR, APTT, PRO, TROPI ####[place] [address] MCV Auto Entitic volume 93.2 80.0-99.0 fL Normal 2017 [facility] (RBC) ([place]) (0000 0) Comment: Performed By: #### CBC, ADIF F, ANEU, BMP, GFR, APTT, PRO, TROPI ####[place] [address] Platelet mean volume Auto 9.3 6.6-10.5 fL Normal 06-11 [facility] Entitic volume (Bld) ([place]) (62148) Comment: Performed By: #### CBC, ADIF F, ANEU, BMP, GFR, APTT, PRO, TROPI ####[place] [address] Platelets Auto #/vol 128 150-450 10 3/mcL Low 8 [facility] ([facility] ([place]) (0000 0) Comment: Performed By: #### CBC, ADIF F, ANEU, BMP, GFR, APTT, PRO, TROPI ####[place] [address] RBC Auto #/vol 4.30 4.10-5.30 10 6/mcL Normal 06-26-2017 [facility] ([place]) (17574) Comment: Performed By: #### CBC, ADIF F, ANEU, BMP, GFR, APTT, PRO, TROPI ####[place] [address] WBC Auto #/vol (d) 3.50 4.50-10.80 10 3/mcL Low 06-26-19 18 [facility] ([place]) (0000 0) Comment: Performed By: #### CBC, ADIF F, ANEU, BMP, GFR, APTT, PRO, TROPI ####[place] [address] bmp on 2017-06-26 Calcium mass conc 8.7 8.4-10.1 mg/dL Normal 06-26-2017 A [facility] ([place]) (00695) Comment: Performed By: #### CBC, ADIF F, ANEU, BMP, GFR, APTT, PRO, TROPI ####[place] [address] Chloride molar conc 106 98-110 mEq/L Normal 06-26-2017 [facility] ([place]) (14589) Comment: Performed By: #### CBC, ADIF F, ANEU, BMP, GFR, APTT, PRO, TROPI ####[place] [address] CO2 molar conc 29 22-32 mEq/L Normal 06-26-2017 [facility] ([place]) (25932) Comment: Performed By: #### CBC, ADIF F, ANEU, BMP, GFR, APTT, PRO, TROPI ####[place] [address] Creatinine mass conc 0.61 0.50-1.20 mg/dL Normal 8 [facility] ([place]) (0000 0) Comment: Performed By: #### CBC, ADIF F, ANEU, BMP, GFR, APTT, PRO, TROPI ####[place] [address] Electrolyte Balance 7.0 4.0-15.0 mEq/L Normal 06-26-2017 [facility] ([place]) (0000 0) Comment: Performed By: #### CBC, ADIF F, ANEU, BMP, GFR, APTT, PRO, TROPI ####[place] [address] Glucose mass conc 88 82-115 mg/dL Normal 06-26-2017 [facility] ([place]) (68634) Comment: Performed By: #### CBC, ADIF F, ANEU, BMP, GFR, APTT, PRO, TROPI ####[place] [address] Potassium molar conc 4.0 3.5-5.0 mEq/L Normal 8 [facility] ([place]) (0000 0) Comment: Performed By: #### CBC, ADIF F, ANEU, BMP, GFR, APTT, PRO, TROPI ####[place] [address] Sodium molar conc 142 136-145 mEq/L Normal 06-26-2017 [facility] ([place]) (97709) Comment: Performed By: #### CBC, ADIF F, ANEU, BMP, GFR, APTT, PRO, TROPI ####[place] [address] Urea nitrogen mass conc 11.0 8.0-22.0 mg/dL Normal 2017 [facility] ([place]) (08439) Comment: Performed By: #### CBC, ADIF F, ANEU, BMP, GFR, APTT, PRO, TROPI ####[place] [address] Urea nitrogen/Creatinine 18.0 10.0-22.0 ratio Normal 06-26 Critical [facility] hospital ratio [facility] ([place]) (62534) Comment: Performed By: #### CBC, ADIF F, ANEU, BMP, GFR, APTT, PRO, TROPI ####[place] [address] a1c on 2017-06-26 Hemoglobin A1c/Hemoglobin.total 5.7 4.0-6.0 % Normal 06-26-2017 [facility] ([facility]) [facility] ([place]) (35018) Comment: Performed By: #### CBC, ADIF F, ANEU, BMP, GFR, APTT, PRO, TROPI ####[place] [address] .morph on 2017-06-11 6 Platelets Auto #/vol Slt Decreased Normal 06-26 [facility] ([facility]) ([place]) (0000 0) Comment: Performed By: #### CBC, ADIF F, ANEU, BMP, GFR, APTT, PRO, TROPI ####[place] [address] RBC morphology finding Nom Normal Normal [facility] ([facility]) ([place]) (0000 0) Comment: Performed By: #### CBC, ADIF F, ANEU, BMP, GFR, APTT, PRO, TROPI ####[place] [address] .manual diff on 01-10-16 Basophil %, Manual 1.0 0.0-2.5 % Normal 06-26-2017 [facility] ([place]) (46553) Comment: Performed By: #### CBC, ADIF F, ANEU, BMP, GFR, APTT, PRO, TROPI ####[place] [address] Basophil, Abs Manual 0.04 0.00-0.27 10 3/mcL Normal 8 [facility] ([place]) (60344) Comment: Performed By: #### CBC, ADIF F, ANEU, BMP, GFR, APTT, PRO, TROPI ####[place] [address] Cells Counted 100 Normal 06-26-2017 Critical access hospital) (26421) Comment: Performed By: #### CBC, ADIF F, ANEU, BMP, GFR, APTT, PRO, TROPI ####[place] [id number] Eosinophil, Abs Manual 0.32 0.00-0.65 10 3/mcL Normal 018 [facility]) (15026) Comment: Performed By: #### CBC, ADIF F, ANEU, BMP, GFR, APTT, PRO, TROPI ####[place] [address] Lymphocyte %, Manual 37.0 20.0-40.0 % Normal 8 [facility] ([place]) (0000 0) Comment: Performed By: #### CBC, ADIF F, ANEU, BMP, GFR, APTT, PRO, TROPI ####[place] [address] Lymphocyte, Abs Manual 1.29 0.90-4.32 10 3/mcL Normal 018 [facility]) (91041) Comment: Performed By: #### CBC, ADIF F, ANEU, BMP, GFR, APTT, PRO, TROPI ####[place] [address] Monocyte %, Manual 4.0 2.0-13.0 % Normal 06-26-2017 [facility]) (96763) Comment: Result Comment: 9.0 Performed By: #### CBC, ADIF F, ANEU, BMP, GFR, APTT, PRO, TROPI ####[place] [id number] Monocyte, Abs Manual 0.14 0.09-1.40 10 3/mcL Normal 8 [facility]) (98119) Comment: Performed By: #### CBC, ADIF F, ANEU, BMP, GFR, APTT, PRO, TROPI ####[place] [address] Neutrophil %, Manual 49.0 50.0-75.0 % Low 8 [facility] ([place]) (74772) Comment: Performed By: #### CBC, ADIF F, ANEU, BMP, GFR, APTT, PRO, TROPI ####[place] [address] Neutrophil, Abs Manual 1.72 2.25-8.10 10 3/mcL Low 018 [facility] ([place]) (71411) Comment: Performed By: #### CBC, ADIF F, ANEU, BMP, GFR, APTT, PRO, TROPI ####[address] [address] .gfr on 2017-06-26 GFR Non- >60 Normal 06-26 [facility] ([place]) (50810) Comment: Result Comment: GFR Populati on mean [...] F, ANEU, BMP, GFR, APTT, PRO, TROPI ####[address] [address] GFR >60 Normal 8 [facility] ([place]) (26554) Comment: Result Comment: GFR Populati on mean [...] F, ANEU, BMP, GFR, APTT, PRO, TROPI ####[place] [address] xr chest 1 view on 2017 XR CHEST 1 VIEW ORIGINALXR CHEST 1 VIEW, Normal 2017 [facility] 2017 2:39 PM Fo undation ([place]) INDICATION: chest pain/SOB (27046) COMPARISON: 03 August 2008 FINDINGS: The lungs [...] Troponin I.cardiac <0.015 0.000-0.040 ng/mL Normal 8 [facility] ([place]) (37615) Comment: Result Comment: Troponin I r eference ranges (02/16/14): 0.00-0.040 ng/mL Negative and non-diagnostic. >0.040 ng/mL Consistent with cardiac damage, increased clinical risk and possibility of myocardial infarction. Serial measurements, a rise & fall in test results, clinical history, appropriate symptoms and/or ECG changes may help assess possibility of IA. *Other non-acute coronary syndrome conditions such as CHF, myocarditis, pulmonary emboli, sepsis and cardiac s urgery could result in myocardial damage and increased troponin levels. Performed By: #### CBC, ADIF F, ANEU, BMP, GFR, APTT, PRO, TROPI ####[facility] [place] [address] pro on 2017 INR Coag RelTime (PPP) 0.9 ratio Normal 018 [facility] ([place]) (54011) Comment: Result Comment: The [employer] (CHEST, 1991, 102:312S-25S)recommended the rapeutic range for oral anticoagulant therapy is:LOW RISK: Prophylaxis of venous thrombosis INR: 2.0-3.0 Treatment of pulmonary embolism 2.0-3.0 P revention of systemic embolism 2.0-3.0HIGH RISK: Mechanical prosthetic valves 2.5-3.5 Performed By: #### CBC, ADIF F, ANEU, BMP, GFR, APTT, PRO, TROPI ####[place] [id number] [place] [address] Prothrombin time (PT) 10.9 9.0-14.5 seconds Normal 06-25-19 18 [facility] Coag time (PPP) [facility] (21219) Comment: Result Comment: Effective , Protime results may be affected by some antibiotics (i.e. Ciprofloxa nikki, Azithromycin, Bactrim) which may potentiate the action of oral anticoagu lants, with further increases in Protime/INR. Performed By: #### CBC, ADIF F, ANEU, BMP, GFR, APTT, PRO, TROPI ####[place] [id number] [place] [address] history and physical on 2017 History and Physical Normal 8 [facility] ([place]) (52983) ed note-provider on 2017 Protein mass conc Normal 2017 A [facility] ([place]) (05080) ct head or brain w/o contrast on 2017 CT HEAD OR BRAIN ORIGINALHead CT 2017 2:52 No rmal 2017 [facility] W/O CONTRAST PM INDICATION: change in [facility] ([place]) mental status/weakness/aphasia (96813) COMPARISON: No TECHNIQUE: Routine non-contrast head CT. [...] Erythrocyte distribution 15.0 11.5-15.5 % Normal 06-25 [facility] width Auto Ratio (RBC) [facility] ([place]) (95130) Comment: Performed By: #### CBC, ADIF F, ANEU, BMP, GFR, APTT, PRO, TROPI ####[address] [address] Hematocrit Auto Volume 44.7 34.0-46.0 % Normal 018 [facility] Fraction (Bld) ([place]) (50102) Comment: Performed By: #### CBC, ADIF F, ANEU, BMP, GFR, APTT, PRO, TROPI ####[place] [id number] [place] [address] 6[address]28 Hemoglobin mass conc 15.0 12.0-16.0 G/dL Normal 8 [facility] (Bld) [facility] ([place]) (70898) Comment: Performed By: #### CBC, ADIF F, ANEU, BMP, GFR, APTT, PRO, TROPI ####[address] [address] MCH Auto Entitic mass 31.1 27.0-33.0 pg Normal 06-25-19 18 [facility] (RBC) ([place]) (0000 0) Comment: Performed By: #### CBC, ADIF F, ANEU, BMP, GFR, APTT, PRO, TROPI ####[place] [address] MCHC Auto mass conc 33.4 32.0-36.0 G/dL Normal 2017 [facility] (RBC) ([place]) (0000 0) Comment: Performed By: #### CBC, ADIF F, ANEU, BMP, GFR, APTT, PRO, TROPI ####[place] [address] MCV Auto Entitic volume 93.1 80.0-99.0 fL Normal 2017 [facility] (RBC) ([place]) (0000 0) Comment: Performed By: #### CBC, ADIF F, ANEU, BMP, GFR, APTT, PRO, TROPI ####[place] [address] Platelet mean volume Auto 8.3 6.6-10.5 fL Normal 06-11 [facility] Entitic volume ([facility]) ([place]) (12633) Comment: Performed By: #### CBC, ADIF F, ANEU, BMP, GFR, APTT, PRO, TROPI ####[place] [address] Platelets Auto #/vol 138 150-450 10 3/mcL Low 8 [facility] (d) ([place]) (0000 0) Comment: Performed By: #### CBC, ADIF F, ANEU, BMP, GFR, APTT, PRO, TROPI ####[place] [address] RBC Auto #/vol 4.80 4.10-5.30 10 6/mcL Normal 2017 [facility] (d) [facility] ([place]) (10315) Comment: Performed By: #### CBC, ADIF F, ANEU, BMP, GFR, APTT, PRO, TROPI ####[address] [address] WBC Auto #/vol 4.50 4.50-10.80 10 3/mcL Normal 2017 [facility]) (15561) Comment: Performed By: #### CBC, ADIF F, ANEU, BMP, GFR, APTT, PRO, TROPI ####[place] [address] bmp on 2017 Calcium mass conc 9.8 8.4-10.1 mg/dL Normal 2017 A [facility] ([place]) (60291) Comment: Performed By: #### CBC, ADIF F, ANEU, BMP, GFR, APTT, PRO, TROPI ####[place] [address] Chloride molar conc 104 98-110 mEq/L Normal 2017 [facility] ([place]) (59785) Comment: Performed By: #### CBC, ADIF F, ANEU, BMP, GFR, APTT, PRO, TROPI ####[place] [address] CO2 molar conc 29 22-32 mEq/L Normal 2017 [facility]) (34919) Comment: Performed By: #### CBC, ADIF F, ANEU, BMP, GFR, APTT, PRO, TROPI ####[place] [address] Creatinine mass conc 0.67 0.50-1.20 mg/dL Normal 8 [facility] ([place]) (0000 0) Comment: Performed By: #### CBC, ADIF F, ANEU, BMP, GFR, APTT, PRO, TROPI ####[place] [address] Electrolyte Balance 7.0 4.0-15.0 mEq/L Normal 2017 [facility] ([place]) (0000 0) Comment: Performed By: #### CBC, ADIF F, ANEU, BMP, GFR, APTT, PRO, TROPI ####[place] [address] Glucose mass conc 86 82-115 mg/dL Normal 2017 [facility] ([place]) (58462) Comment: Performed By: #### CBC, ADIF F, ANEU, BMP, GFR, APTT, PRO, TROPI ####[place] [address] Potassium molar conc 4.1 3.5-5.0 mEq/L Normal 8 [facility] ([place]) (0000 0) Comment: Performed By: #### CBC, ADIF F, ANEU, BMP, GFR, APTT, PRO, TROPI ####[place] [address] Sodium molar conc 140 136-145 mEq/L Normal 2017 [facility] ([place]) (00585) Comment: Performed By: #### CBC, ADIF F, ANEU, BMP, GFR, APTT, PRO, TROPI ####[place] [address] Urea nitrogen mass conc 12.0 8.0-22.0 mg/dL Normal 2017 [facility] ([place]) (15757) Comment: Performed By: #### CBC, ADIF F, ANEU, BMP, GFR, APTT, PRO, TROPI ####[place] [address] Urea nitrogen/Creatinine 17.9 10.0-22.0 ratio Normal 06-25 [facility] ([place]) (67121) Comment: Performed By: #### CBC, ADIF F, ANEU, BMP, GFR, APTT, PRO, TROPI ####[place] [address] aptt on 2017 aPTT Coag time (Bld) None Normal 8 [facility] ([place]) (74465) Comment: Result Comment: per Pauly Performed By: #### CBC, ADIF F, ANEU, BMP, GFR, APTT, PRO, TROPI ####[place] [address] aPTT Coag time (Bld) 30.6 25.0-35.0 seconds Normal 8 [facility] ([place]) (03557) Comment: Result Comment: For Heparin anticoagulation therapy, the recommendedtherapeutic range is: 54-77 seconds (APTT Correlationwith Anti-Xa therapeutic range of 0.3-0.7 units/ml).PLEASE REFERENCE THE PHARMACY PROTOCOL FOR DOSING. Performed By: #### CBC, ADIF F, ANEU, BMP, GFR, APTT, PRO, TROPI ####[place] [address] .neuabs on Neutrophil, Absolute 2.10 2.25-8.10 10 3/mcL Low 8 [facility] ([place]) (0000 0) Comment: Performed By: #### CBC, ADIF F, ANEU, BMP, GFR, APTT, PRO, TROPI ####[place] [address] .gfr on 2017 GFR >60 Normal 8 [facility] ([place]) (67825) Comment: Result Comment: GFR Populati on mean [...] F, ANEU, BMP, GFR, APTT, PRO, TROPI ####[place] [id number] GFR Non- >60 Normal 06-25 [facility] ([place]) (38247) Comment: Result Comment: GFR Populati on mean [...] F, ANEU, BMP, GFR, APTT, PRO, TROPI ####[address] [address] .auto diff on 06-25 Ammonia mass conc 0.30 0.09-1.40 10 3/mcL Normal 2017 A [facility] () [facility]) (00674) Comment: Performed By: #### CBC, ADIF F, ANEU, BMP, GFR, APTT, PRO, TROPI ####[place] [address] Basophils Auto #/vol 0.00 0.00-0.27 10 3/mcL Normal 8 [facility] ([facility]) [facility]) (17951) Comment: Performed By: #### CBC, ADIF F, ANEU, BMP, GFR, APTT, PRO, TROPI ####[place] [address] Basophils/100 WBC Auto (d) 0.2 0.0-2.5 % Normal 0 2017 [facility] ([place]) (0000 0) Comment: Performed By: #### CBC, ADIF F, ANEU, BMP, GFR, APTT, PRO, TROPI ####[place] [address] Eosinophils Auto #/vol 0.20 0.00-0.65 10 3/mcL Normal 018 [facility]) (72363) Comment: Performed By: #### CBC, ADIF F, ANEU, BMP, GFR, APTT, PRO, TROPI ####[address] [address] Eosinophils/100 WBC Auto 3.7 0.0-6.0 % Normal 06-25 [facility]) (87165) Comment: Performed By: #### CBC, ADIF F, ANEU, BMP, GFR, APTT, PRO, TROPI ####[address] [address] Lymphocytes Auto #/vol 1.90 0.90-4.32 10 3/mcL Normal 018 [facility]) (80358) Comment: Performed By: #### CBC, ADIF F, ANEU, BMP, GFR, APTT, PRO, TROPI ####[address] [address] Lymphocytes/100 WBC Auto 42.1 20.0-40.0 % High 06-25 [facility]) (99428) Comment: Performed By: #### CBC, ADIF F, ANEU, BMP, GFR, APTT, PRO, TROPI ####[address] [address] Monocytes/100 WBC Auto ([facility]) 6.4 2.0-13.0 % Normal 0 2017 [facility]) (45976) Comment: Performed By: #### CBC, ADIF F, ANEU, BMP, GFR, APTT, PRO, TROPI ####[address] [address] Neutrophils/100 WBC Auto 47.6 50.0-75.0 % Low 06-25 [facility]) (10283) Comment: Performed By: #### CBC, ADIF F, ANEU, BMP, GFR, APTT, PRO, TROPI ####[address] [address] Encounters Date Type Reason Provider Location 01-09-2018 Patient encounter AGUSTIN PENA [facility] ity:A MIKO AVILA 2017 - Patient encounter MIKO AVILA Facility: A 06-26-2017 YANN POWELL 03-22-2020 Patient encounter Esophageal YANN Alcala ziyad procedure disorders [facility]ital E SCAR (98818) YANN Riley SCARNADIA AVILA UNKNOWN PROVIDER UNKNOWN PROVIDER UNKNOWN PROVIDER 03-12-2020 Patient encounter ACHAL JOHNNY Abdias [place] procedure [facility] (93031) MIKO AVILA UNKNOWN PROVIDER UNKNOWN PROVIDER UNKNOWN PROVIDER 03-12-2020 - Patient encounter ACHAL JOHNNY Abdias [place] 03-12-2020 procedure [facility] ital [facility] (22735) MIKO AVILA UNKNOWN PROVIDER UNKNOWN PROVIDER UNKNOWN PROVIDER 12-11-2019 - [facility] [place] 12-11-2019 [facility] (62729) MIKO AVILA UNKNOWN PROVIDER UNKNOWN PROVIDER UNKNOWN PROVIDER 11-26-2019 - Patient encounter YANN giraldo 11-26-2019 [facility] (47199[facility] MIKO AVILA UNKNOWN PROVIDER UNKNOWN PROVIDER UNKNOWN PROVIDER 10-09-2019 - Patient encounter MIKO Calero [place] 10-09-2019 [facility] (68222) MIKO AVILA UNKNOWN PROVIDER UNKNOWN PROVIDER UNKNOWN PROVIDER 05-30-2019 - [facility] [place] [facility] 05-30-2019 procedure [facility] ital [facility] (09677) MIKO AVILA UNKNOWN PROVIDER UNKNOWN PROVIDER UNKNOWN PROVIDER 03-04-2020 - Telephone Yann Diallo [place] in 03-04-2020 encounter [facility] [place] Comment: Rx Refills (Gabapentin) Procedures Procedure Name Date Provider Location Mammography 12-05-2019 [facility] ([id number]) Colonoscopy 04-08-2015 [facility] (32465) Plan of Treatment Plan Description Date Location DTAP,TDAP,TD (3 - Td) DTAP,TDAP,TD (3 - Td) 08-04-2021 [facility] (25036) MAMMOGRAM MAMMOGRAM 12-04-2020 [facility] (69320) COLONOSCOPY COLONOSCOPY 04-08-2020 [facility] (43771) INFLUENZA (#1) INFLUENZA (#1) 2020 [facility] (29037) ADVANCE DIRECTIVE ADVANCE DIRECTIVE 2019 [place] inic DISCUSSION DISCUSSION (15219) BONE DENSITY BONE DENSITY 2019 [facility] (00670) PNEUMOVAX AGE 65 AND OVER PNEUMOVAX AGE 65 AND OVER 2019 [facility] WITH 5YR LOOKBACK (#1) WITH 5YR LOOKBACK (#1) (4 3556) DIABETES SCREEN DIABETES SCREEN 07-14-2014 [facility] (64581) LIPID SCREEN LIPID SCREEN 02-18-2014 [facility] (04116) SHINGRIX VACCINE (1 of 2) SHINGRIX VACCINE (1 of 2) 2004 [facility] (83093) HEPATITIS C SCREENING HEPATITIS C SCREENING 1972 [facility] (20667) HIV SCREENING HIV SCREENING 1972 [facility] (09662) Immunizations Vaccine Notes Status Date Location DT(PEDIATRIC) diphtheria and tetanus (completed) 01-07-2003 [facility] toxoids, adsorbed for (13012 ) pediatric use Influenza Vaccine, influenza virus vaccine, (completed) 03-14-2011 [facility] Split-Non Spec unspecified formulation (4 5625) Influenza Vaccine, influenza virus vaccine, (completed) 03-23-2010 [facility] Split-Non Spec unspecified formulation (4 6405) Pneumovax pneumococcal (completed) 05-11-2010 [facility] polysaccharide vaccine, (441 95) 23 valent Pneumovax pneumococcal (completed) 03-25-2008 [facility] polysaccharide vaccine, (441 95) 23 valent Tdap (Age 7+) tetanus toxoid, reduced (completed) 08-04-2011 [facility] diphtheria toxoid, and (4419 5) acellular pertussis vaccine, adsorbed Payers Payer Name Policy Number Location MEDICARE OUTPATIENT [id number] [facility] (12755) [employer] THP MEDIC[place] [id number] [facility] ([place] (22228) [facility] MEDICARE [id number] [facility] ([id number]) [id number] [facility] ([id number]) [id number] [facility] ([id number]) [id number] [facility] ([id number]) [id number] [facility] ([id number]) [id number] [facility] ([id number]) [id number] [facility] ([id number]) [id number] [facility] (87433) The following information is from the original human readable contentNo Payer Records FoundNo Payer Records FoundNo Payer Records FoundNo Payer Records FoundNo Payer Records FoundNo Payer Records FoundNo Payer Records FoundNo Payer Records FoundNo Payer Records FoundNo Payer Records FoundNo Payer Records Found Social History Type Social History Description Date Locat ion Tobacco smoking status Never smoker 12-19-2019 [facility] (31659) NHIS Tobacco use and exposure Never used 12-19-2019 [facility] (51241) Alcohol intake Current non-drinker of 12-19-2019 [facility] (15706) alcohol (finding) Sex Assigned At Not on file [facility] (72788) The following information is from the original [...] Documents on File Type Date Recorded Patient Tier And Detonator Explanati on Advance Directive(s) 05/27/2018 1:22 PM [...] BE BASED ON THE PRIMARY CLINICAL RECORDS. [facility] provides no warranty or guarantee of the accuracy or completeness of information in this document. UNRECOGNIZED CONTENT PROVIDED BELOW FOR UNRECOGNIZED SECTION INFORMATION SOURCE DATE CREATED AUTHOR AUTHOR'S ORGANIZATIO N 11/28/2017 [facility] DATE CREATED AUTHOR AUTHOR'S ORGANIZATIO N 01/09/2018 [facility] ([place]) DATE CREATED AUTHOR AUTHOR'S ORGANIZATIO N 06/03/2019 [facility] DATE CREATED AUTHOR AUTHOR'S ORGANIZATIO N 06/13/2019 [facility] DATE CREATED AUTHOR AUTHOR'S ORGANIZATIO N 12/29/2019 [facility] DATE CREATED AUTHOR AUTHOR'S ORGANIZATIO N 01/06/2020 [facility] DATE CREATED AUTHOR AUTHOR'S ORGANIZATIO N 03/06/2020 [facility] DATE CREATED AUTHOR AUTHOR'S ORGANIZATIO N 03/23/2020 [facility] UNRECOGNIZED CONTENT PROVIDED BELOW FOR UNRECOGNIZED SECTION Source Comments In the event this information is protected by the Federal Confidentiality of Alcohol and Drug Abuse Patient Records regulations: The Federal rules restrict any use of the information to criminally investigate or prosecute any alcohol or drug abuse patient.[facility] UNRECOGNIZED CONTENT PROVIDED BELOW FOR UNRECOGNIZED [...] 3x per day. Spoke with Same at [facility] who states last refill was shipped 01/07/20. PATRICIA Lafleur Telephone Encounter - [place] - 03/04/2020 2:13 PM EDTPatient is requesting a refill of her Gabapentin be sent to [facility]. Last seen in office on . documented in this encounter
--- OUTSIDE RECORDS SUMMARY | 2020-03-23 18:16 | XMS RPT_ITS | CCD ---
:1955 External Reference #:[id number] Author Organization [employer] Care Team Providers [...] Onset Location Amoxicillin / Rash 05-04-2017 - [facility] Clavulanate (55444) Amoxicillin / Moderate (Severity Abdias Pom [facility] Cl[facility]ulanate Mod[facility]) [facility] Iodine Swelling 11-14-2019 - [facility] (65657) Medications Medication Name Sig Date Prescriber Location Ascorbic Acid Ascorbic Acid [facility] Provider [facility] (VITAMIN C) chew Take Provider (26820 ) 500 mg by mouth once daily. 0 Active Comment: Take 500 mg by mouth once da daiana. Aspirin aspirin, enteric coated [facility] Provider [facility] (49097) (ASPIRIN, ENTERIC COATED) Provider 81 mg EC tablet Take 81 mg by mouth once daily. 0 Active Comment: Take 81 mg by mouth once tracy ly. Cholecalciferol Cholecalciferol, Vitamin 11-09-2011 Sanjay Da Silva [facility] D3, (VITAMIN D) 1,000 Sanjay Church (4 8765) unit Cap Take 1 capsule by mouth once daily. 0 11/09/2011 Active Comment: Take 1 capsule by mouth once daily. DULoxetine DULoxetine (CYMBALTA) 60 [facility] Provider [facility] (14135) mg capsule Take 60 mg by Provider mouth daily at bedtime. 0 Active Comment: Take 60 mg by mouth daily at bedtime. Etanercept etanercept(ENBREL 50 MG/ML 02-16-2010 Sonal Pimentel ([facility] ) [facility] (0.98 ML) SUB-Q SYRINGE) (Hist) Michael (75 195) takes once weekly. 0 Sonal K ([facility]) 02/16/2010 Active (Hist) Michael Comment: takes once weekly. Famotidine famotidine (PEPCID) 20 mg [facility] Provider [facility] (09399) tablet Take 40 mg by Provider mouth twice daily. 0 Active Comment: Take 40 mg by mouth twice da daiana. fluticasone fluticasone (FLONASE) 10-28-2014 [facility]cf Provider [facility] 50 mcg/actuation nasal (4419 5) spray Folic Acid FOLIC ACID 1 mg ORAL 08-08-2010 Ccf Provider [facility] tablet (00054) gabapentin gabapentin (NEURONTIN) 01-05-2020 - Yann Diallo [facility] 300 mg capsule 07-05-2020 Yann Diallo (77671) Indications: RLS (restless legs syndrome) Take 3 capsules daily as instructed. 270 capsule 0 01/05/2020 07/05/2020 Active Comment: Take 3 capsules daily as ins tructed. Linseed Oil flaxseed 1,000 mg cap [facility] Provider [facility] (50775) Take by mouth. 0 Active Provider Comment: Take by mouth. Loratadine loratadine (CLARITIN) 10 [facility] Provider [facility] (55290) mg tablet Take 10 mg by Provider mouth as needed. 0 Active Comment: Take 10 mg by mouth as neede d. Lovastatin lovastatin (MEVACOR) 10 Ccf Provider [facility] (94590) mg tablet Take 10 mg by Provider mouth daily at bedtime. 0 Active Comment: Take 10 mg by mouth daily at bedtime. MAGNESIUM GLUCONATE magnesium gluconate Ccf Provider C [facility] [place] [facility] (MAG-G) 27 mg (500 mg) Provider (4419 5) tab Take by mouth once daily. 0 Active Comment: Take by mouth once daily. Methotrexate methotrexate 2.5 mg tablet Ccf Provider C [facility] Take 2.5 mg by mouth every Provider ( 82784) Sunday. 0 Active Comment: Take 2.5 mg by mouth every F riday. MULTI-VITAMIN ORAL MULTI-VITAMIN ORAL Take [facility]cf Provide r [facility] by mouth. 0 Active Provider (51983) Comment: Take by mouth. Nitroglycerin NITROSTAT 0.4 mg 07-19-2015 Ccf Provider [facility] tablet (63217) VITAMIN B COMPLEX ORAL VITAMIN B COMPLEX Ccf Provider [facility] ORAL Take by mouth Provider (46390) once daily. 0 Active Comment: Take by mouth once daily. 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 (39782) Esophageal disorders Gastroesophageal reflux Active 9 - [facility] disease (10943) Headache; including Migraine without aura, Active 07-19-2017 - [facility] migraine not refractory (03468) Mood disorders Hypomania Active 02-12-2009 - [facility] (63561) Other and ill-defined Small vessel Active 07-19-2017 - [facility] cerebrovascular disease cerebrovascular disease (66072) Other gastrointestinal Irritable bowel syndrome Active 2014 - [facility] disorders with diarrhea (27242) Other hereditary and Restless legs Active 02-24-2019 - [facility] degenerative nervous (66643) system conditions Residual codes; Obstructive sleep apnea Active 04-05-2015 - [facility] unclassified syndrome (17802) Rheumatoid arthritis and Rheumatoid arthritis Active [facility] related disease (90089) Thyroid disorders Multinodular goiter Active 04-05-2015 - [facility] (01311) Transient cerebral Transient cerebral Active 04-05-2015 - [facility] ischemia ischemia (20591) Unclassified Patient encounter status Active 02-16-2009 - [facility] (40538) Past or Other Problems Category Problem Name Status Date Location Diabetes mellitus Impaired fasting Completed 02-16-2009 - [facility] without complication glycaemia (66240) Neoplasms of unspecified Neoplasm of uncertain Completed [facility] nature or uncertain behavior of skin (441 95) behavior Nonmalignant breast Inversion of nipple Completed 05-15-2018 - [facility] conditions (13035) Other bone disease and Osteopenia Completed 02-12-2009 - [facility] musculoskeletal (53922) deformities Other circulatory H/O: TIA Completed 02-24-2019 - [facility] disease (91426) Other screening for Cardiovascular stress Completed 02-12-2009 - [facility] suspected conditions test abnormal (43089 ) (not mental disorders or infectious disease) Results Result Name Value Range Unit Interpretation Flag Date Location sgpt (alt) on 03-12 ALT [Catalytic activity/Vol] 17 8 - 35 U/L Normal 1 [facility] ( 95502) Comment: Performed By: #### [id number] ## ## [facility],[address] [place] [address] sgot (ast) on 03-12 AST/SGOT 22 13 - 39 U/L Normal 03-12-2020 [facility] (12305) Comment: Performed By: #### [id number] ## ## [facility],[address] [place] [address] 15532 sedrate on SEDRATE 13 0 - 30 mm/hr Normal 03-12-2020 [facility] (47328) Comment: Performed By: #### [id number] ## ## [facility],[address] [place] [address] 08271 creatinine on 03-12 Creatinine [Mass/Vol] 0.8 0.6 - 1.2 mg/dl Normal 03-12-20 [facility] ( 01668) Comment: Performed By: #### [id number] ## ## [facility],[address] [place] [address] 40657 cbc + diff on 03-12 Basophils (Bld) 0.00 0.00 - 0.10 x10EE3/UL Normal 03-12-2020 [facility] [#/Vol] [facility] ospital (69661) Comment: Performed By: #### [id number] ## ## [facility],[address] [place] [address] 89282 Basophils/100 WBC (Bld) 0.7 0.0 - 2.0 % Normal 2019 [facility] ( 55414) Comment: Performed By: #### [id number] ## ## [facility],[address] [place] [address] 23045 CBC + DIFF Normal 03-12-2020 [facility] (16186) Comment: Result Comment: CBC-COMPLETE BLOOD COUNT Performed By: #### [id number] ## ## [facility],[address] [place] [address] 70935 Eosinophils (Bld) 0.30 0.00 - 0.50 x10EE3/UL Normal 03-12-2020 [facility] [#/Vol] [facility]ital (90858) Comment: Performed By: #### [id number] ## ## [facility],[address] [place] [address] 62701 Eosinophils/100 WBC (Bld) 6.8 0.0 - 7.0 % Normal 100 [facility] ( 17661) Comment: Performed By: #### [id number] ## ## [facility],[address] [place] [address] 16553 Erythrocyte distribution 14.7 12.0 - 15.6 % Normal [facility] width (RBC) [Ratio] Hospital (52450) Comment: Performed By: #### [id number] ## ## [facility],[address] [place] [address] 03104 Hematocrit (Bld) [Volume 41.2 34.0 - 46.0 % Normal [facility]] [facility] ( 04696) Comment: Performed By: #### [id number] ## ## [facility],[address] [place] [address] 36058 Hemoglobin (Bld) 14.0 12.0 - 16.0 g/dl Normal 03-12-2020 [facility] [Mass/Vol] [facility] (63601) Comment: Performed By: #### [id number] ## ## [facility],[address] [place] [address] 58643 Lymphocytes (Bld) 1.70 0.80 - 2.80 x10EE3/UL Normal 03-12-2020 [facility] [#/Vol] [facility]ital (50572) Comment: Performed By: #### [id number] ## ## [facility],[address] [place] [address] 24945 Lymphocytes/100 WBC (Bld) 35.1 20.0 - 45.0 % Normal [facility] ( 28510) Comment: Performed By: #### [id number] ## ## [facility],[address] [place] [address] 87902 MANUAL DIFF N/A Normal 03-12-2020 [facility] (54384) Comment: Performed By: #### [id number] ## ## [facility],[address] [place] [address] 46668 MCH (RBC) [Entitic mass] 32 27 - 33 pg Normal 03-12 [facility] ( 80114) Comment: Performed By: #### [id number] ## ## [facility],[address] [place] [address] 03095 MCHC (RBC) [Mass/Vol] 34 32 - 36 X10 3 Normal 03-12-20 20 [facility] ( 70288) Comment: Performed By: #### [id number] ## ## [facility],[address] [place] [address] 62219 MCV (RBC) [Entitic vol] 94 80 - 99 fl Normal 2019 [facility] ( 87317) Comment: Performed By: #### [id number] ## ## [facility],[address] [place] [address] 25984 Monocytes (Bld) 0.50 0.20 - 1.00 x10EE3/UL Normal 03-12-2020 [facility] [#/Vol] [facility] (96856) Comment: Performed By: #### [id number] ## ## [facility],[address] [place] [address] 97296 MONOS % 9.7 0.0 - 10.0 % Normal 03-12-2020 [facility] (29879) Comment: Performed By: #### [id number] ## ## [facility],[address] [place] [address] 19116 Morphology Kasi (Bld) [Interp] N/A Normal 03-12-2020 [facility] ( 49938) Comment: Performed By: #### [id number] ## ## [facility],[address] [place] [address] 74433 Neutrophils (Bld) 2.30 1.50 - 7.10 x10EE3/UL Normal 03-12-2020 [facility] [#/Vol] [facility] (52238) Comment: Performed By: #### [id number] ## ## [facility],[address] [place] [address] 00686 Neutrophils/100 WBC (Bld) 47.7 46.0 - 76.0 % Normal [facility] ( 70910) Comment: Performed By: #### [id number] ## ## [facility],[address] [place] [address] 05042 Platelet mean volume 7.9 6.6 - 10.5 fl Normal 03-12-20 20 [facility] (d) [Entitic vol] [facility] (94837) Comment: Result Comment: AUTOMATED DI FFERENTIAL Performed By: #### [id number] ## ## [facility],[address] [place] [address] 12621 Platelets (Bld) 209 150 - 450 x10EE3/UL Normal 03-12-2020 [facility] [#/Vol] [facility] (13263) Comment: Performed By: #### [id number] ## ## [facility],[address] [place] [address] 15983 RBC (Bld) [#/Vol] 4.38 4.10 - 5.30 x 10EE6/UL Normal 0 [facility] (30660) Comment: Performed By: #### [id number] ## ## [facility],[address] [place] [address] 65244 WBC (Bld) [#/Vol] 4.9 4.5 - 10.8 x 10EE3/UL Normal 03-12-2020 [facility] ( 77790) Comment: Performed By: #### [id number] ## ## [facility],[address] [place] [address] 41949 c-reactive protein on 2020-03-12 CRP [Mass/Vol] <0.10 0.00 - 1.00 mg/L Normal 03-12-2020 [facility] ( 49193) Comment: Performed By: #### [id number] ## ## [facility],[address] [place] [address] 33697 bun on 2020-03-12 Urea nitrogen [Mass/Vol] 13 6 - 20 mg/dl Normal 03-12 [facility] ( 46055) Comment: Performed By: #### [id number] ## ## [facility],[address] [place] [address] 13763 albumin plasma on Albumin [Mass/Vol] 4.2 3.4 - 4.8 g/dL Normal 03-12-2020 [facility] ( 59076) Comment: Performed By: #### [id number] ## ## [facility],[address] [place] [address] 68095 cnpn on 2020-03-04 CNPN Telephone (NEURBA) Normal 03-04-2020 [place] CLAIRE Ross ([id number]) 1955 F Medical Date Time Provider Department Center 03/04/20 YANN DIALLO JR NEURBA (68573) During your visit today, we recorded the following informati on about you: El Prasad 03/04/2020 2:14 PM Signed Patient is requesting a refill of her Gabapentin be se nt to [facility]. Last seen in office on 12/15/19. PATRICIA Lafleur 03/04/2020 4:09 PM Signed Spoke with patient who states she only has a wee k left. Verified she received last refill end of December and is taking it 3x per day. Spoke with Same at [facility] who s tates last refill was shipped [...] 2019-12 OBSOLETE Refill (NEMOWS) Normal 01-05-2020 [facility] CLAIRE Valera ([id number]) 1955 [facility] Date Time Provider Department (95042) 01/05/20 YANN DIALLO JR During your visit [...] 01/05/20 progress on 2019-12 PROGRESS HNO ID: [id number] Normal 12-19-2019 [facility] Author: Masha San [facility] Service: ? ([id number]) Author Type: Physician Type: Progress Notes Filed: 12/19/2019 11:06 AM Note Text: Masha San MD [facility] [address] [place], [place] [id number] SUBJECTIVE Chief Complaint: Patient presents with: Yearly [...] CHOLECYSTECTOMY 2012 - COLONOSCOP W/ OR W/O [facility] SPEC 08/13 Colonoscopy - COLONOSCOP W/ OR W/O [facility] SPEC 04/03/13 Colonoscopy - COLONOSCOP W/ OR W/O [facility] SPEC 04/08/15 Colonoscopy - EGD W/O OR W/BRUSH/WASH 04/03/13 EGD - FOOT LEFT OP SURGERY 06/2014 - HEART CATHETERIZATION 08/04/08 AND 10/2013 Normal Heart Cath --- [facility], Dr. Pena - LAPAROSCOPIC CHOLEYCYSTECTOMY 09/11 Cholecystectomy, [...] monthly breast awareness and call with a [place] concerns. Follow up: Return if symptoms worsen or fail to improve. Masha San MD 12/19/2019 11:03 AM hemogram on 2019-12 Erythrocyte distribution 14.2 11.7-14.4 % Normal 12-18 [facility] width (RBC) [Ratio] System (00465) Comment: Performed By: #### CBC1 #### [address] [address] Hematocrit (Bld) [Volume 41.9 34.1-44.9 % Normal 12-18 [facility] fraction] System (00 000) Comment: Performed By: #### CBC1 #### [address] [address] Hemoglobin (Bld) 13.8 11.2-15.7 g/dL Normal 12-19-2019 [facility] [Mass/Vol] System (0 0000) Comment: Performed By: #### CBC1 #### [facility] [address] [place], [place] [address] MCH (RBC) [Entitic mass] 31.4 25.6-32.2 pg Normal 12-18 [facility] (00 000) Comment: Performed By: #### CBC1 #### [facility] [address] [place], [place] [address] MCHC (RBC) [Mass/Vol] 32.9 31.6-34.8 % Normal 12-19-19 20 [facility] (40587) Comment: Performed By: #### CBC1 #### [facility] [address] [place], [place] [address] MCV (RBC) [Entitic vol] 95.2 79.4-94.8 fl High 2019 [facility] (66353) Comment: Performed By: #### CBC1 #### [facility] [address] [place], [place] [address] Platelet mean volume (Bld) 10.0 9.4-12.3 fl Normal [facility] [Entitic vol] System (98440) Comment: Performed By: #### CBC1 #### [facility] [address] [place], [place] [address] Platelets (Bld) [#/Vol] 186 182-369 thou/cmm Normal 2019 [facility] (00 000) Comment: Performed By: #### CBC1 #### [facility] [address] [place], [place] [address] RBC (Bld) [#/Vol] 4.40 3.93-5.22 mil/cmm Normal 12-19-2019 [facility] (00 000) Comment: Performed By: #### CBC1 #### [facility] [address] [place], [place] [address] RDW SD 48.8 36.4-46.3 fl High 12-19-2019 [facility] (47166) Comment: Performed By: #### CBC1 #### [address] [address] WBC (Bld) [#/Vol] 4.86 3.98-10.04 thou/cmm Normal 12-19-2019 [facility] (00 000) Comment: Performed By: #### CBC1 #### [address] [address] cnov on 2019-12-19 CNOV Office Visit (AGGBRCR) Normal 12-18-2 020 [place] [facility] CLAIRE GUEVARA ([id number]) 1955 F Medical Date Time Provider Department Center 12/19/19 11:00 AM MASHA SAN AGGBR[facility] (64438) During your visit today, we recorded the following informati on about you: Pulse Blood pressure Weight Height 91/minute 117/84 60.8 kg 1.626 m Rani Skinner RN 12/19/2019 10:56 AM Signed Denies any new palpable masses skin changes or p ain. Mammogram of 12/05/19 was negative PEDRO LUIS Jacobs MD 12/19/2019 11:06 AM Signed Masha San MD [facility] [address] [place] [address] SUBJECTIVE Chief Complaint: Patient presents with: Yearly [...] CHOLECYSTECTOMY 2012 - COLONOSCOP W/ OR W/O [facility] SPEC 08/13 Colonoscopy - COLONOSCOP W/ OR W/O [facility] SPEC 04/03/13 Colonoscopy - COLONOSCOP W/ OR W/O [facility] SPEC 04/08/15 Colonoscopy - EGD W/O OR W/BRUSH/WASH 04/03/13 EGD - FOOT LEFT OP SURGERY 06/2014 - HEART CATHETERIZATION 08/04/08 AND 10/2013 Normal Heart Cath --- [facility], Dr. Pena - LAPAROSCOPIC CHOLEYCYSTECTOMY 09/11 Cholecystectomy, [...] monthly breast awareness and call with a va concerns. Follow up: Return if symptoms worsen [...] a [place] concerns. Referring Provider: MIKO AVILA [[id number]] Allergies As of Date: 12/19/2019 Noted Allergy [...] 12/19/19 progress on 2019-12 PROGRESS HNO ID: [id number] Normal 12-15-2019 [place] Author: Yann Diallo Jr. Clinic Service: ? [place] Author Type: Physician ([id number]) Type: Progress Notes Filed: 12/15/2019 6:08 PM [...] was last seen pt was admitted at [facility] f or ? TIA. [place] records reviewed. Pt had experienced numbness and [...] the start of Plavix. Records reviewed from [place]. MRI, MRA negative, LDL 104. Hemoglobi n A1c 5.7. She does follow with cardiology. . I will order an echo. Las t echo on record was from 2018. Patient agrees and will follow-up with Dr. Diallo in [place] in 6-8 weeks. States now having problems [...] history. She did have sleep study at [place] 2 weeks ago. 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 Records requested to verify. [...] with more than 50% of the total ncpe-qv-asqt time of the visit in counseling / coordination of care. PDMP website checked and validated. All prescriptions have b een APPROPRIATELY filled. No suspicious activity was identified. 12/15/2019 by MD petey Carter on 2019-12-15 CNOV Office Visit (FERNANDO) Normal 12-15-[address] [place] [address] Alberto GUEVARACLAIRE Antoine ([id number]) 1955 [facility] Date Time Provider Department (50810) 12/15/19 4:40 PM YANN DIALLO JR During [...] was last seen pt was admitted at [facility] for ? TIA. [place] records reviewed. Pt had exp erienced numbness [...] the start of Plavix. Records reviewed from [place]. MRI, MRA negative, LDL 104. Hemoglobin A1c 5.7. She does follow with cardiology. . I will order an echo. Last echo on record was from 2018. Patient agrees and will follow-up with Dr. Diallo in [place] in 6-8 weeks. States now having problems [...] history. She did have sleep study at [place] 2 weeks ago. I do not have [...] with more than 50% of the total plss-qa-xlcj time of the visit in counseling / coordination of care. PDMP website checked and validated. All prescrip tions have been APPROPRIATELY filled. No suspicious activity was ident ified. 12/15/2019 by Yann Diallo MD Referring Provider: YANN DIALLO JR [[id number]] Allergies As of Date: 12/15/2019 Noted Allergy Reaction AUGMENTIN (AMOXICILLIN-POT CLAVUL*05/04/2017 2 - Rash CONTRAST DYE (IODINE) 11/14/2019 7 - Swelling Date Reviewed: 12/15/2019 Reviewed by: Yann Diallo Jr. - Fully Assessed Reason for Visit: Established Patient [175] Cmt: [facility] Primary Visit Diagnosis:Transient cerebral ische rosanne, unspecified type [G45.9] Other Visit Diagnoses:Obstructive sleep apnea (adult) (pedia tric) [G47.33] RLS (restless legs syndrome) [G25.81] Cognitive impairment [R41.89] Order(s):CBC [SQCB] Order #: [id number] FUTURE CONSULT TO NEUROPSYCH [[id number]] Order #: [id number]: 1 FU TURE gabapentin (NEURONTIN) 300 mg [...] 8 - 35 U/L Normal 0 12-11-2019 [facility] ( 95830) Comment: Performed By: #### [id number] ## ## [place] [address] sgot (ast) on 12-10 AST/SGOT 26 13 - 39 U/L Normal 12-11-2019 [facility] (10550) Comment: Performed By: #### [id number] ## ## [address] [address] sedrate on SEDRATE 14 0 - 30 mm/hr Normal 12-11-2019 [facility] (91457) Comment: Performed By: #### [id number] ## ## [address] [address] creatinine on 12-10 Creatinine [Mass/Vol] 0.8 0.6 - 1.2 mg/dl Normal 12-11-19 [facility] ( 95567) Comment: Performed By: #### [id number] ## ## [facility],[address] [place] [address] 80929 cbc + diff on 12-10 Basophils (Bld) 0.00 0.00 - 0.10 x10EE3/UL Normal 12-11-2019 [facility] [#/Vol] [facility] (51396) Comment: Performed By: #### [id number] ## ## [facility],[address] [place] [address]36[address] Basophils/100 WBC (Bld) 0.7 0.0 - 2.0 % Normal 2019 [facility] ( 70551) Comment: Performed By: #### [id number] ## ## [facility],[address] [place] [address] 87295 CBC + DIFF Normal 12-11-2019 [facility] (04431) Comment: Result Comment: CBC-COMPLETE BLOOD COUNT Performed By: #### [id number] ## ## [facility],[address] [place] [address] 70546 Eosinophils (Bld) 0.20 0.00 - 0.50 x10EE3/UL Normal 12-11-2019 [facility] [#/Vol] [facility] (24454) Comment: Performed By: #### [id number] ## ## [facility],[address] [place] [address] 08933 Eosinophils/100 WBC (Bld) 5.2 0.0 - 7.0 % Normal [facility] ( 58991) Comment: Performed By: #### [id number] ## ## [facility],[address] [place] [address] 22782 Erythrocyte distribution 14.4 12.0 - 15.6 % Normal [facility] (RBC) [Ratio] [facility] (22569) Comment: Performed By: #### [id number] ## ## [facility],[address] [place] [address] 61971 Hematocrit (Bld) [Volume 40.8 34.0 - 46.0 % Normal [facility] ( 90522) Comment: Performed By: #### [id number] ## ## [facility],[address] [place] [address] 95554 Hemoglobin (Bld) 14.0 12.0 - 16.0 g/dl Normal 12-11-2019 [facility] [Mass/Vol] [facility] (10881) Comment: Performed By: #### [id number] ## ## [facility],[address] [place] [address] 57535 Lymphocytes (Bld) 1.60 0.80 - 2.80 x10EE3/UL Normal 12-11-2019 [facility] [#/Vol] [facility] (50691) Comment: Performed By: #### [id number] ## ## [facility],[address] [place] [address] 56616 Lymphocytes/100 WBC (Bld) 36.5 20.0 - 45.0 % Normal [facility] ( 93288) Comment: Performed By: #### [id number] ## ## [facility],[address] [place] [address] 41180 MANUAL DIFF N/A Normal 12-11-2019 [facility] (39105) Comment: Performed By: #### [id number] ## ## [facility],[address] [place] [address] 64810 MCH (RBC) [Entitic mass] 32 27 - 33 pg Normal 12-10 [facility] ( 72038) Comment: Performed By: #### [id number] ## ## [facility],[address] [place] [address] 56555 MCHC (RBC) [Mass/Vol] 34 32 - 36 X10 3 Normal 12-11-19 20 [facility] ( 52461) Comment: Performed By: #### [id number] ## ## [facility],[address] [place] [address] 08197 MCV (RBC) [Entitic vol] 94 80 - 99 fl Normal 2019 [facility] ( 24693) Comment: Performed By: #### [id number] ## ## [facility],[address] [place] [address] 44429 Monocytes (Bld) 0.40 0.20 - 1.00 x10EE3/UL Normal 12-11-2019 [facility] [#/Vol] [facility] (06378) Comment: Performed By: #### [id number] ## ## [facility],[address] [place] [address] 13484 MONOS % 9.8 0.0 - 10.0 % Normal 12-11-2019 [facility] (22784) Comment: Performed By: #### [id number] ## ## [facility],[address] [place] [address] 73709 Morphology Kasi (Bld) [Interp] N/A Normal 12-11-2019 [facility] ( 20732) Comment: Performed By: #### [id number] ## ## [facility],[address] [place] [address] 44175 Neutrophils (Bld) 2.10 1.50 - 7.10 x10EE3/UL Normal 12-11-2019 [facility] [#/Vol] [facility] (64291) Comment: Performed By: #### [id number] ## ## [facility],[address] [place] [address] 73801 Neutrophils/100 WBC (Bld) 47.8 46.0 - 76.0 % Normal [facility] ( 79557) Comment: Performed By: #### [id number] ## ## [facility],[address] [place] [address] 37996 Platelet mean volume 7.9 6.6 - 10.5 fl Normal 12-11-19 20 [facility] (Bld) [Entitic vol] Hospital (26549) Comment: Result Comment: AUTOMATED DI FFERENTIAL Performed By: #### [id number] ## ## [facility],[address] [place] [address] 49146 Platelets (Bld) 235 150 - 450 x10EE3/UL Normal 12-11-2019 [facility] [#/Vol] [facility] (35216) Comment: Performed By: #### [id number] ## ## [facility],[address] [place] [address] 36871 RBC (Bld) [#/Vol] 4.32 4.10 - 5.30 x 10EE6/UL Normal 0 [facility] (95206) Comment: Performed By: #### [id number] ## ## [facility],[address] [place] [address] 57865 WBC (Bld) [#/Vol] 4.4 4.5 - 10.8 x 10EE3/UL Low 12-11-2019 [facility] ( 25016) Comment: Performed By: #### [id number] ## ## [facility],[address] [place] [address] 22026 c-reactive protein on 2019-12-11 CRP [Mass/Vol] <0.10 0.00 - 1.00 mg/L Normal 12-11-2019 [facility] ( 52932) Comment: Performed By: #### [id number] ## ## [facility],[address] [place] [address] 38544 bun on 2019-12-11 Urea nitrogen [Mass/Vol] 12 6 - 20 mg/dl Normal 12-10 [facility] ( 99814) Comment: Performed By: #### [id number] ## ## [facility],[address] [place] [address] 14349 albumin plasma [ccl] on 2019-12-11 Albumin [Mass/Vol] 4.2 3.4 - 4.8 g/dL Normal 12-11-2019 [facility] ( 44206) Comment: Performed By: #### [id number] ## ## [facility],[address] [place] [address] 98803 [facility] screening on 28-11-25 [facility] SCREENING Final Report Normal 12-05-2019 [facility] DATE OF EXAM: Dec 05 2019 1:57PM [facility] AAW 0581 - [facility] SCREENING / ([id number]) PROCEDURE REASON: screening Physician Interpretation #[id number] - [facility] SCREENING BILATERAL DIGITAL SCREENING MAMMOGRAM WITH CAD: 12/05/2019 HISTORY: Screening / Screening Mammogram-patient reports no symptoms. RESULT: TECHNIQUE: The study was acquired using full field digital t echnology and interpreted from soft copy. Current study was also evaluated with a Computer Aided Detec tion (CAD). Comparison is made to exams dated: 12/04/2018 mammogram - [facility] and 03/02/2018 mammogram - [facility]. There are scattered fibroglandular elements in both [...] Miko Avila M.D., Dr. Miko Avila, ph: [phone], fax: [phone] Dry Kiln Burner(s): Zahra Farris, [facility] letter sent: Normal over 40 Mammogram [...] Family Medicine, and Medical/Surgical Oncology, the [facility] has carefully reviewed the data and [...] providers when to sto p screening mammograms. Atm Servicer: Cecelia Transcribe Date/Time: Dec 05 2019 1:44P Dictated by : MELISSA STODDARD MD This examination was interpreted and the report reviewed and electronically signed by: MELISSA STODDARD MD on Dec 05 2019 2:04PM EST cnco on 2019-12-05 [facility] HNO ID: [id number] Normal 12-05-2019 [facility] Author: [facility] ([id number]) Service: ? Author Type: Physician Type: Letter Filed: 12/08/2019 11:34 PM Note Text: [facility] [address] [place] [address] 38147 December 05, 2019 PID: [id number] Claire Guevara [address] [address] Dear Ms. Guevara, We are pleased to [...] e needs. Sincerely, Dr. Stoddard Interpreting Radiologist [facility] (Normal over 40) cnpn on 2019-11-25 CNPN Telephone (NEURBA) Normal 11-25-2019 [facility] CLAIRE GUEVARA ([id number]) 1955 F Medical Date Time Provider Department Center 11/25/19 YANN DIALLO JR ([id number]) During your visit today, we recorded the [...] Swelling Date Reviewed: 11/14/2019 Reviewed by: Sanjiv ([facility]) Josue - Fully Assessed Reason for Visit: Orders [681] Primary Visit Diagnosis:Obstructive sleep apnea (adult ) (pediatric) [G47.33] Order(s):PAP TITRATION PSG (CPAP, BIPAP, ASV) [[id number]] Or pat #: [id number] FUTURE Prescriptions as of 11/25/2019 Sig: DULOXETINE [...] on 11/25/19 CNPN Telephone (NEURGN) Normal 11-25-2019 [place] CLAIRE Ross ([id number]) 1955 F Medical Date Time Provider Department Center 11/25/19 QUINTIN SANTOS (WOOD FINISHER, OPERATIONS LEAD) NEURGN ([id number]) During your visit today, we recorded the following informati on about you: Quintin Santos APRN.OPERATIONS LEAD, OPERATIONS LEAD 11/25/2019 10:21 AM Signed Please let pt [...] Swelling Date Reviewed: 11/14/2019 Reviewed by: Sanjiv ([facility]) Josue - Fully Assessed Reason for Visit: [...] 11/25/19 progress on 2019-11 PROGRESS HNO ID: [id number] Normal 11-14-2019 [facility] Author: Quintin (Despatching And Receiving Clerk [employer] Teacher) TORIN Santos [facility] Service: ? ([id number]) Author Type: Nurse Practitioner Type: Progress Notes Filed: 11/14/2019 3:02 PM Note Text: Neurology Follow Up Note Date: November 14, 2019 Patient Name: Claire Guevara HPI: This is MsDavid Guevara a 64 year old female who p resents to [facility] Neurology for follow up of TIA. Pt was last se en by Dr. Diallo 08/28 for ZAID, RLS, and migraines. Since pt was last seen pt was admitted at [facility] f or ? TIA. [place] records reviewed. Pt had experienced numbness and [...] the start of Plavix. Records reviewed from [place]. MRI, MRA negative, LDL 104. Hemoglobi n A1c 5.7. She does follow with cardiology. . I will order an echo. Las t echo on record was from 2017. Patient agrees and will follow-up with Dr. Diallo in [place] in 6-8 weeks. Medications: DULoxetine (CYMBALTA) 60 [...] 10 mg tablet Take 10 mg by [facility] once daily. PMH/PSH/FH/ALLERGIES: Reviewed from last [...] is to follow-up with Dr. Katarzyna Santos, WOOD FINISHER.[facility], Department of Neurology 30 minutes were completed [id number]-[id number] [facility] on 2019-11-14 CNPN Telephone (NEURGN) Normal 11-14-2019 [facility] CLAIRE GUEVARA ([id number]) 1955 F Medical Date Time Provider Department Center 11/14/19 QUINTIN SANTOS (WOOD FINISHER, OPERATIONS LEAD) ROYCE ([id number]) During your visit today, we recorded the following informati on about you: [place] 11/14/2019 3:05 PM Signed Patient was scheduled for an echo on 11/24/19 at 1100 am at [facility]. Patient was given the date/time/location Allergies As of Date: 11/14/2019 Noted Allergy Reaction AUGMENTIN (AMOXICILLIN-POT CLAVUL*05/04/2017 2 - Rash CONTRAST DYE (IODINE) 11/14/2019 7 - Swelling Date Reviewed: 11/14/2019 Reviewed by: [facility]jiv [facility] Josue - Fully Assessed Reason for Visit: [...] 2019-11-14 CN[facility] Office Visit (NEURGN) Normal 11-14-19 [facility] CLAIRE GUEVARA ([id number]) 1955 F Medical Date Time Provider Department Center 11/14/19 1:00 PM QUINTIN SANTOS (WOOD FINISHER, OPERATIONS LEAD) NEURGN ([id number]) During your visit today, we recorded the following informati on about you: Pulse Blood pressure Weight Height 93/minute 122/66 62.6 kg 1.626 m Quintin Santos APRN.OPERATIONS LEAD, OPERATIONS LEAD 11/14/2019 3:02 PM Signed Neurology Follow Up Note Date: November 14, 2019 Patient Name: Claire Guevara HPI: This is Ms. Claire Guevara a 64 year old female who presents to [facility] Neurology for follow up of TIA. Pt was last seen by Dr. Diallo 08/28 for ZAID, RLS, and migraines. Since pt was last seen pt was admitted at [facility] for ? TIA. [place] records reviewed. Pt had exp erienced numbness [...] the start of Plavix. Records reviewed from [place]. MRI, MRA negative, LDL 104. Hemoglobin A1c 5.7. She does follow with cardiology. . I will order an echo. Last echo on record was from 2017. Patient agrees and will follow-up with Dr. Diallo in [place] in 6-8 weeks. Medications: DULoxetine (CYMBALTA) 60 [...] follow-up with Dr. Diallo. Quintin Santos APRN.TORIN [facility], Department of Neurology 30 minutes were completed ogbk-wr-file Quintin Santos APRN.TORIN HARKINS 11/14/2019 1:19 PM Addendum Get Echo Continue with Plavix, asa and lovastatin Follow up with Dr. Diallo in [place] Referring Provider: YANN DIALLO JR [[id number]] Allergies As of Date: 11/14/2019 Noted Allergy Reaction AUGMENTIN (AMOXICILLIN-POT CLAVUL*05/04/2017 2 - Rash CONTRAST DYE (IODINE) 11/14/2019 7 - Swelling Date Reviewed: 11/14/2019 Reviewed by: Sanjiv Ceballos - Fully Assessed Reason for Visit: Established Patient [175] Cmt: ER follow up- [facility] Primary Visit Diagnosis:Numbness and tingling [R20.0, R20.2] Other Visit Diagnoses:Transient cerebral ischemia, unspeci fied type [G45.9] Palpitation [R00.2] H/O: stroke [Z86.73] Order(s):ECHO [[id number]] Order #: [id number]: 1 FUTURE perflutren lipid microspheres (DEFINITY) 1.1 [...] lovastatin Follow up with Dr. Diallo in [place] Prescriptions ordered this encounter Disp Refills Start [...] Disposition: Return 6-8 weeks with Yoel in [place]. Follow-up and Disposition History Recorded Encounter Status:Closed by QUINTIN SANTOS CNP on 11/14/19 ot-mra neck without contrast import on 2019-11-06 OT-MRA Neck Images were obtained outside of [facility] Normal 11-06-2019 [facility] without Contrast [id number] [place] ([id number]) IMPORT mr-mra head only without contrast import on 2019-11-06 MR-MRA Head ONLY Images were obtained outside of [facility] Normal 11-06-2019 [facility] without Contrast [id number] (57970) IMPORT mr-brain without contrast import on 2019-11-06 MR-Brain without Images were obtained outside of [facility] Normal 11-06-2019 [facility] Contrast IMPORT [id number] [place] ([id number]) ct-brain/head without contrast import on 2019-11-05 CT-Brain/Head Images were obtained outside of [facility] Normal 11-05-2019 [place] without Contrast [id number] [facility] IMPORT [place] ([id number]) cr-chest 1 view import on 2019-11-05 CR-Chest 1 View Images were obtained outside of [facility] Normal 11-05-2019 [facility] IMPORT [id number] [place] (80521) cnpn on 2019-11-05 CNPN Telephone (NEURBA) Normal 11-05-2019 [place] CLAIRE GUEVARA ([id number]) 1955 F Medical Date Time Provider Department Center 11/05/19 YANN DIALLO JR ([id number]) During your visit today, we recorded the [...] go to ER today. She was at [employer] office when I spoke with he r. [...] BETH BEDOLLA on 11/05/19 [facility]) Normal 10-13-2019 [place] CLAIRE Ross ([id number]) 1955 F Medical Date Time Provider Department Center 10/13/19 YANN DIALLO JR ([id number]) During your visit today, we recorded the [...] 8 - 35 U/L Normal 0 10-09-2019 [facility] ( 27392) Comment: Performed By: #### [id number] ## ## [place] [address] sgot (ast) on 10-08 AST/SGOT 22 13 - 39 U/L Normal 10-09-2019 [facility] (65050) Comment: Performed By: #### [id number] ## ## [place] 580694 sedrate on SEDRATE 16 0 - 30 mm/hr Normal 10-09-2019 [facility] (36443) Comment: Performed By: #### [id number] ## ## [place] [address] creatinine on 10-08 Creatinine [Mass/Vol] 0.8 0.6 - 1.2 mg/dl Normal 10-09-19 [facility] ( 54866) Comment: Performed By: #### [id number] ## ## [facility],[address] [place] [address] 88794 cbc + diff on 10-08 Basophils (Bld) 0.00 0.00 - 0.10 x10EE3/UL Normal 10-09-2019 Abelino nikolay [facility] [#/Vol] [facility] (28842) Comment: Performed By: #### [id number] ## ## [facility],[address] [place] [address] 89100 Basophils/100 WBC (Bld) 0.4 0.0 - 2.0 % Normal 2019 [facility] ( 74561) Comment: Performed By: #### [id number] ## ## [facility],[address] [place] [address] 05548 CBC + DIFF Normal 10-09-2019 [facility] (38844) Comment: Result Comment: CBC-COMPLETE BLOOD COUNT Performed By: #### [id number] ## ## [facility],[address] [place] [address] 54940 Eosinophils (Bld) 0.30 0.00 - 0.50 x10EE3/UL Normal 10-09-2019 [facility] [#/Vol] [facility] (16151) Comment: Performed By: #### [id number] ## ## [facility],[address] [place] [address] 29739 Eosinophils/100 WBC (Bld) 6.3 0.0 - 7.0 % Normal 09-11 [facility] ( 21671) Comment: Performed By: #### [id number] ## ## [facility],[address] [place] [address] 58689 Erythrocyte distribution 15.8 12.0 - 15.6 % High [facility] width (RBC) [Ratio] Hospital (08744) Comment: Performed By: #### [id number] ## ## [facility],[address] [place] [address] 81220 Hematocrit (Bld) [Volume 42.0 34.0 - 46.0 % Normal [facility] ( 63059) Comment: Performed By: #### [id number] ## ## [facility],[address] [place] [address] 81432 Hemoglobin (Bld) 14.1 12.0 - 16.0 g/dl Normal 10-09-2019 [facility] [Mass/Vol] [facility] (44503) Comment: Performed By: #### [id number] ## ## [facility],[address] [place] [address] 03122 Lymphocytes (Bld) 1.60 0.80 - 2.80 x10EE3/UL Normal 10-09-2019 [facility] [#/Vol] [facility]ital (17175) Comment: Performed By: #### [id number] ## ## [facility],[address] [place] [address] 35331 Lymphocytes/100 WBC (Bld) 31.6 20.0 - 45.0 % Normal [facility] ( 06051) Comment: Performed By: #### [id number] ## ## [address] [address] MANUAL DIFF N/A Normal 10-09-2019 [facility] (34971) Comment: Performed By: #### [id number] ## ## [address] [address] MCH (RBC) [Entitic mass] 31 27 - 33 pg Normal 10-08 [facility] ( 42043) Comment: Performed By: #### [id number] ## ## [address] [address] MCHC (RBC) [Mass/Vol] 34 32 - 36 X10 3 Normal 10-09-19 20 [facility] ( 16442) Comment: Performed By: #### [id number] ## ## [facility],[address] [place] [address] 77140 MCV (RBC) [Entitic vol] 93 80 - 99 fl Normal 2019 [facility] ( 08814) Comment: Performed By: #### [id number] ## ## [facility],[address] [place] [address] 10603 Monocytes (Bld) 0.60 0.20 - 1.00 x10EE3/UL Normal 10-09-2019 [facility] [#/Vol] [facility] (80963) Comment: Performed By: #### [id number] ## ## [facility],[address] [place] [address] 22909 MONOS % 11.9 0.0 - 10.0 % High 10-09-2019 [facility] (56527) Comment: Performed By: #### [id number] ## ## [facility],[address] [place] [address] 53131 Morphology Kasi (Bld) [Interp] N/A Normal 10-09-2019 [facility] ( 57385) Comment: Performed By: #### [id number] ## ## [facility],[address] [place] [address] 26479 Neutrophils (Bld) 2.50 1.50 - 7.10 x10EE3/UL Normal 10-09-2019 [facility] [#/Vol] [facility] (00978) Comment: Performed By: #### [id number] ## ## [facility],[address] [place] [address] 61235 Neutrophils/100 WBC (Bld) 49.8 46.0 - 76.0 % Normal [facility] ( 25434) Comment: Performed By: #### [id number] ## ## [facility],[address] [place] [address] 19765 Platelet mean volume 7.7 6.6 - 10.5 fl Normal 10-09-19 20 [facility] (Bld) [Entitic vol] [facility] (43248) Comment: Result Comment: AUTOMATED DI FFERENTIAL Performed By: #### [id number] ## ## [facility],[address] [place] [address] 62299 Platelets (Bld) 191 150 - 450 x10EE3/UL Normal 10-09-2019 [facility] [#/Vol] [facility] (29930) Comment: Performed By: #### [id number] ## ## [facility],[address] [place] [address] 80505 RBC (Bld) [#/Vol] 4.52 4.10 - 5.30 x 10EE6/UL Normal 0 [facility] (70749) Comment: Performed By: #### [id number] ## ## [facility],[address] [place] [address] 38500 WBC (Bld) [#/Vol] 4.9 4.5 - 10.8 x 10EE3/UL Normal 10-09-2019 [facility] ( 51365) Comment: Performed By: #### [id number] ## ## [facility],[address] [place] [address] 99127 c-reactive protein on 2019-10-09 CRP [Mass/Vol] <0.10 0.00 - 1.00 mg/L Normal 10-09-2019 [facility] ( 42954) Comment: Performed By: #### [id number] ## ## [facility],[address] [place] [address] 47771 bun on 2019-10-09 Urea nitrogen [Mass/Vol] 12 6 - 20 mg/dl Normal 10-08 [facility] ( 52881) Comment: Performed By: #### [id number] ## ## [facility],[address] [place] [address] 55632 albumin plasma on Albumin [Mass/Vol] 4.2 3.4 - 4.8 g/dL Normal 10-09-2019 [facility] ( 14362) Comment: Performed By: #### [id number] ## ## [facility],[address] [place] [address] on 2019-08-28 CNPN Telephone (NEURGN) Normal 08-28-2019 [facility] CLAIRE GUEVARA ([id number]) 1955 F Medical Date Time Provider Department Center 08/28/19 YANN DIALLO JR ([id number]) During your visit today, we recorded the following informati on about you: El Prasad 08/28/2019 3:44 PM Signed Pre-certification of PSG Insurance Company Name[facility] [place] [employer] Spoke with: Miss Cuevas Pre-certification number: [id number] [facility] 08/28/19-11/26/19 Patient wants test scheduled at [facility] El Prasad El Prasad 08/28/2019 3:44 PM Signed Patient insurance advised to get authorization for a split night study - in case this is required. She said if the second study is not n eeded the auth still covers just the PSG. Did you want to put a split study order in for me to send to [facility]? Yann Diallo MD 08/28/2019 9:12 PM Signed Yes. It is actually ordered as a split night if you see th e comments in the order. There is not an actual order for split night. [place] 08/29/2019 10:46 AM Signed Patient is scheduled for a PSG at [facility] on 09/09/19 at 800 pm. Order was faxed to [phone]. Patient was notified. Allergies As of Date: [...] (PPP) [Relative 1.00 0.90-1.30 {INR} Normal 08-24 [place] [facility] time] System (00 000) Comment: Result Comment: Vitamin K An tagonist (VKA) Therapeutic Range: INR 2 to 3 (Target INR of 2.5) Note: For patients treated w ith VKA drugs, such as warfarin, the [employer] 2012 Guideline recommends a therapeutic INR range of 2 to 3 (target INR of 2.5). This recommendation includes high -risk patients with antiphospholipid syndrome with previous arter ial or venous thromboembolism, current-generation mechanica l or bioprosthetic aortic heart valve replacement. Note: Patients with compressor mechanic bus al aortic valve replacement and additional risk [...] 70: 252-289 Performed By: #### GPT #### [facility] [address] [place], [place] [address] PT Coag (PPP) [Time] 10.4 9.7-13.0 sec Normal 0 [facility] (17402) Comment: Performed By: #### GPT #### [facility] [address] [place], [place] [address] progress on 2019-08 PROGRESS HNO ID: [id number] Normal 08-25-2019 [place] Author: Yann Diallo Jr. General Service: ? Medical Author Type: Physician Center Type: Progress Notes ([id number]) Filed: 08/25/2019 11:19 AM Note Text: ESTABLISHED [...] visit, with more than 50% of the [facility] shae-xj-qlzq time of the visit in counseling / coordination of care. hemogram on 2019-08 Erythrocyte distribution 15.6 11.7-14.4 % High 08-24 [facility] width (RBC) [Ratio] System (71359) Comment: Performed By: #### CBC1 #### [address] [address] Hematocrit (Bld) [Volume 41.8 34.1-44.9 % Normal 08-24 [facility] fraction] System (00 000) Comment: Performed By: #### CBC1 #### [address] [address] Hemoglobin (Bld) 13.4 11.2-15.7 g/dL Normal 08-25-2019 [facility] [Mass/Vol] System (0 0000) Comment: Performed By: #### CBC1 #### [address] [address] MCH (RBC) [Entitic mass] 30.4 25.6-32.2 pg Normal 08-24 [facility] (00 000) Comment: Performed By: #### CBC1 #### [facility] [address] [place], [place] [address] MCHC (RBC) [Mass/Vol] 32.1 31.6-34.8 % Normal 08-25-19 20 [facility] (25250) Comment: Performed By: #### CBC1 #### [facility] [address] [place], [place] [address] MCV (RBC) [Entitic vol] 94.8 79.4-94.8 fl Normal 2019 [facility] (00 000) Comment: Performed By: #### CBC1 #### [facility] [address] [place] [id number] Platelet mean volume (Bld) 10.7 9.4-12.3 fl Normal [facility] [Entitic vol] System (72199) Comment: Performed By: #### CBC1 #### [facility] [address] [place], [place] [address] Platelets (Bld) [#/Vol] 177 182-369 thou/cmm Low 2019 [facility] (00 000) Comment: Performed By: #### CBC1 #### [facility] [address] [place], [place] [address] RBC (Bld) [#/Vol] 4.41 3.93-5.22 mil/cmm Normal 08-25-2019 [facility] (00 000) Comment: Performed By: #### CBC1 #### [facility] [address] [place], [place] [address] RDW SD 55.0 36.4-46.3 fl High 08-25-2019 [facility] (09696) Comment: Performed By: #### CBC1 #### [facility] [address] [place], [place] [address] WBC (Bld) [#/Vol] 5.22 3.98-10.04 thou/cmm Normal 08-25-2019 [facility] (00 000) Comment: Performed By: #### CBC1 #### [facility] [address] [place], [place] [address] cnpn on 2019-08-25 CNPN Telephone (NEURGN) Normal 08-25-2019 [place] [facility] CLAIRE GUEVARA ([id number]) 1955 F Medical Date Time Provider Department Center 08/25/19 YOEL MARTINEZ, YANN Roca NEUR ([id number]) During your visit today, we recorded the [...] Fully Assessed Reason for Visit: Patient Question [9396] Cmt: Neurology - Cholesterol Prescriptions as of [...] CNOV Office Visit (NEURGN) Normal 08-25-19 20 [place] [facility] CLAIRE GUEVARA ([id number]) 1955 F Medical Date Time Provider Department Center 08/25/19 10:30 AM YANN DIALLO JR NEUR ([id number]) During your visit today, we recorded the [...] No - Drug use: No PHYSICAL EXAMINATION [facility] 04/11/2005 Blood pressure 114/66, pulse [...] with more than 50% of the total yxml-ut-puxo time of the visit in counseling / coordination of care. Yann Diallo MD 08/25/2019 10:52 AM Signed 1. Increase gabapentin to 900mg nightly (3 of the 300mg caps ules). Referring Provider: YANN DIALLO JR [[id number]] Allergies As of Date: 08/25/2019 Noted Allergy [...] sleep hygiene [Z72.821] Order(s):CBC [SQCBC] Order #: [id number] FUTURE PROTHROMBIN TIME/PT [SQPT] Order #: [id number] FUTURE POLYSOMNOGRAM (PSG) [5409493] Order #: [id number] FUTURE gabapentin (NEURONTIN) 300 mg capsuleTake 3 [...] Provider Note - ED v2: Normal 1 [facility] ED v2 Chart Review: [facility] (83260) ED NOTES ED NOTES: Nontoxic appearing female [...] SIGNS: T PRBP SpO2O2(LPM) %FiO2 Method 08-Jun-2019 09:50:[id number]/71 97 CLINICAL IMPRESSION Diagnosis/Annotation: ED Dx Name:Viral [...] of care. This note was generated using [employer]. It may contain errors in wording, punctuation, or spelling. CRITICAL CARE TIME Is this a critically ill patient: no Electronic Signatures: Kyle Rodriguez (WOOD FINISHER-OPERATIONS LEAD) (Signed 08-Jun-2019 11:28) Authored: Provider Note - ED v2 Last Updated: 08-Jun-2019 11:28 by Kyle Rodriguez (AP RN-OPERATIONS LEAD) rheumatoid factor [ccl] on 2019-06-02 Rheumatoid Factor 280 <16 IU/mL High 06-02-2019 [facility] (80486) Comment: Result Comment: [facility] in ITN [address] [place] [address] Salvatore King III, M.D. [id number] Performed By: #### [id number] ## ## [facility],[address] [place] [address] hepatitis c ab ia w/confirm [ccl] on 2019-06-02 Hepatitis C Ab IA Negative NEGAT Normal 06-02-2019 [facility] (48391) Comment: Result Comment: [facility] [address] [place] [address] Salvtaore King III, M.D. [id number] Performed By: #### [id number] ## ## [facility],[address] [place] [address] hep b surface ag [ccl] on 2019-06-02 Hepatitis B Surf. Ag Negative NEGAT Normal [address] [place] [address] ( [address]) Comment: Result Comment: [facility] in Laboratories [address] [place] [address] Salvatore King III, M.D. [id number] Performed By: #### [id number] ## ## [facility],[address] [place] [address] hep b surface ab, quant [ccl] on 2019-06-02 HepB SurfaceAb,Quant <8.00 <8.00 Normal 9 [facility] (85772) Comment: Result Comment: No evidence of antibodies to Hepatitis B surface antigen. [facility] [place] [id number] Salvatore King III, M.D. [id number] Performed By: #### [id number] ## ## [facility],[address] [place] [address] hep b core ab, total (igm & igg) [ccl] on 2019-06-02 Hep B Core Ab,Total Negative NEGAT Normal 06-02-2019 [facility] ( 45044) Comment: Result Comment: [place] [address] [place] [address] Salvatore King III, M.D. [id number] Performed By: #### [id number] ## ## [facility],[address] [place] [address] cyclic citrullinated pep ab igg [ccl] on 2019-06-02 CCP Antibody, IgG 59 <20 Units High 06-02-2019 [facility] (42231) Comment: Result Comment: < 20 units: Negative 20-39 units: Weak Positive 40-59 units: Moderate Positi ve > 60 units: Strong Positive The following results were o btained with the [employer] QUANTA Lite CCP3 IgG LISSY. Anti-CCP values obtained wit h different manufacturers' assay methods may not be used interchangeably. The ma gnitude of the reported IgG levels cannot be correlated to an endpoint ti ter. [facility] [place] [address] Salvatore King III, M.D. [id number] Performed By: #### [id number] ## ## [facility],[address] [place] [address] ccp antibody, igg o n 2019-06-02 CCP Antibody, IgG 59 <20 Units High 06-02-2019 [facility] (71415) Comment: Performed By: #### RF, AHBSQ , AHBCOT, HBSAG, AHCV1B #### [facility] s Routine Lab [address] [place] [address] #### ANAIFS ### # [facility] Immunology [address] [place] [address] #### CCP #### [facility] Immuno Assay [address] [place] [address] shravan by ifa screen [ccl] on 2019-06-02 SHRAVAN Pattern Homogeneous Normal 06-02-2019 [facility] (12103) Comment: Result Comment: [facility] inic Laboratories [address] [place] [address] Salvatore King III, M.D. [id number] Performed By: #### [id number] ## ## [facility],[address] [place] [address] SHRAVAN Titer 1:160 NEGAT Abnormal 06-02-2019 [facility] (30603) Comment: Performed By: #### [id number] ## ## [facility],[address] [place] [address] Nuclear Ab IF (S) Positive NEGAT Abnormal 06-02-2019 [facility] [[facility]] [facility] ( 19932) Comment: Result Comment: Normal range : negative at <1:80 serum dilution. Performed By: #### [id number] ## ## [facility],[address] [place] [address] tb by quantiferon *outside use only* on 2019-06-01 Interpretation TBNEG Normal 06-01-2019 [facility] Reference [facility] (10279) Comment: Performed By: #### INTPGP ## ## [facility] [address] [place] [address] Mitogen minus Nil 8.48 Normal 06-01-2019 C [facility] Reference Lab (34487) Comment: Performed By: #### INTPGP ## ## [facility] Immunology [facility] [place] [phone] TB NIL 0.07 IU/mL Normal 06-01-2019 [facility] (77316) Comment: Performed By: #### INTPGP ## ## [facility]ology [address] [place] [phone] TB Result NEGAT Negative Normal 06-01-2019 [facility] (66697) Comment: Performed By: #### INTPGP ## ## [facility] [address] [place] [phone] TB1 Ag minus Nil 0.00 <0.35 IU/mL Normal 06-01-2019 [facility] (11040) Comment: Performed By: #### INTPGP ## ## [facility] [address] [place] [phone] TB2 Ag minus Nil 0.00 <0.35 IU/mL Normal 06-01-2019 [facility] (64545) Comment: Performed By: #### INTPGP ## ## [place] [phone] quantiferon tb incubated [ccl] on 2019-06-01 Interpretation No evidence of current or Normal 06-01-2019 [facility] previous infection with [facility] Mycobacterium tuberculosis. (90667) Comment: Result Comment: [facility] Laboratories [address] [place] [address] Salvatore King III, M.D. [id number] Performed By: #### [id number] ## ## [facility],[address] [place] [address] Mitogen minus Nil 8.48 Normal 06-01-2019 [facility] (97365) Comment: Performed By: #### [id number] ## ## [facility] ash[facility],[address] [place] [address] TB NIL 0.07 IU/mL Normal 06-01-2019 [facility] (11342) Comment: Performed By: #### [id number] ## ## [facility],[address] [place] [address] TB Result Negative NEGAT Normal 06-01-2019 [facility] (97303) Comment: Performed By: #### [id number] ## ## [facility],[address] [place] [address] TB1 Ag minus Nil 0.00 <0.35 IU/mL Normal 06-01-2019 [facility] (84446) Comment: Performed By: #### [id number] ## ## [facility],[address] [place] [address] TB2 Ag minus Nil 0.00 <0.35 IU/mL Normal 06-01-2019 [facility] (90317) Comment: Performed By: #### [id number] ## ## [facility],[address] [place] [address] shravan by ifa on 06-01 SHRAVAN Pattern HOMO Normal 06-01-2019 [facility] Reference Lab (40851) Comment: Performed By: #### RF, AHBSQ , AHBCOT, HBSAG, AHCV1B #### [facility] Routine [facility] [place] [address] #### ANAIFS ### # [facility]ology [address] [place] [phone] #### CCP #### [facility] Immuno Assay [address] [place] [phone] SHRAVAN Titer D160 Negative Abnormal 06-01-2019 [facility] (13318) Comment: Performed By: #### RF, AHBSQ , AHBCOT, HBSAG, AHCV1B #### [facility] Routine [facility] [address] [place] [phone] #### ANAIFS ### # [facility] [address] [place] [phone] #### CCP #### [facility] Immuno Assay [address] [place] [phone] Nuclear Ab IF (S) Positive Negative Abnormal 06-01-2019 C [facility] [Titer] Reference Lab (79159) Comment: Performed By: #### RF, AHBSQ , AHBCOT, HBSAG, AHCV1B #### [facility] [address] [place] [phone] #### ANAIFS ### # [facility] [address] [place] [phone] #### CCP #### [facility]o [facility] [address] [place] [phone] rheumatoid factor o n 2019-05-31 Rheumatoid Factor 280 <16 IU/mL High 05-31-2019 [facility] (19947) Comment: Performed By: #### RF, AHBSQ , AHBCOT, HBSAG, AHCV1B #### [facility] [address] [place] [phone] #### ANAIFS ### # [facility] [address] [place] [phone] #### CCP #### [facility]o [facility] [address] [place] [phone] hepb surfaceab,quant on 2019-05-31 HepB SurfaceAb,Quant <8.00 <8.00 Normal 9 [facility] (17266) Comment: Performed By: #### RF, AHBSQ , AHBCOT, HBSAG, AHCV1B #### [facility] Routine Lab [address] [place] [phone] #### ANAIFS ### # [facility]ology [address] [place] [phone] #### CCP #### [facility]o Assay [address] [place] [phone] hepatitis b surf. ag on 2019-05-31 Hepatitis B Surf. Ag NEGAT Negative Normal 9 [facility] (28653 ) Comment: Performed By: #### RF, AHBSQ , AHBCOT, HBSAG, AHCV1B #### [facility] Routine Lab [address] [place] [phone] #### ANAIFS ### # [facility] [address] [place] [phone] #### CCP #### [facility] Immuno Assay [address] [place] [phone] hep c ab ia w/conf on 2019-05-31 Hepatitis C Ab IA NEGAT Negative Normal 05-31-2019 [facility] (04496) Comment: Performed By: #### RF, AHBSQ , AHBCOT, HBSAG, AHCV1B #### [facility] [address] [place] [phone] #### ANAIFS ### # [facility] [address] [place] [phone] #### CCP #### [facility] Immuno Assay [address] [place] [phone] hep b core ab,total on 2019-05-31 Hep B Core Ab,Total NEGAT Negative Normal 05-31-2019 [facility] (17904) Comment: Performed By: #### RF, AHBSQ , AHBCOT, HBSAG, AHCV1B #### [facility] Routine Lab [address] [place] [address] #### ANAIFS ### # [facility] [address] [place] [address] #### CCP #### [facility]o Assay [address] [place] [address] vitamin d, 25 hydroxy on 2019-05-30 VitD 83.04 30.00 - 100 ng/mL Normal 05-30-2019 [facility] (43348) Comment: Result Comment: 25-OHD3 shlomo cates both [...] D2 Not Esta blished Performed By: #### [id number] ## ## [facility],[address] [place] [address]202 uric acid on 2018-06 Urate [Mass/Vol] 5.0 2.3 - 6.6 mg/dl Normal 05-30-2019 [facility] ( 91184) Comment: Performed By: #### [id number] ## ## [facility],[address] [place] [address] sgpt (alt) on 05-30 ALT [Catalytic activity/Vol] 16 8 - 35 U/L Normal 1 07-31-2018 [facility] ( 81054) Comment: Performed By: #### [id number] ## ## [facility],[address] [place] [address] 89587 sgot (ast) on 05-30 AST/SGOT 25 13 - 39 U/L Normal 05-30-2019 [facility] (87915) Comment: Performed By: #### [id number] ## ## [facility],[address] [place] [address] 63701 sedrate on SEDRATE 15 0 - 30 mm/hr Normal 05-30-2019 [facility] (84296) Comment: Performed By: #### [id number] ## ## [facility],[address] [place] [address] 87547 cbc + diff on 05-30 Basophils (Bld) 0.00 0.00 - 0.10 x10EE3/UL Normal 05-30-2019 [facility] [#/Vol] [facility] ospital (58716) Comment: Performed By: #### [id number] ## ## [facility],[address] [place] [address] 63573 Basophils/100 WBC (Bld) 0.7 0.0 - 2.0 % Normal 2018 [facility] ( 50831) Comment: Performed By: #### [id number] ## ## [facility],[address] [place] [address] 28336 CBC + DIFF Normal 05-30-2019 [facility] (13808) Comment: Result Comment: CBC-COMPLETE BLOOD COUNT Performed By: #### [id number] ## ## [facility],[address] [place] [address]19 Eosinophils (Bld) 0.20 0.00 - 0.50 x10EE3/UL Normal 05-30-2019 [facility] [#/Vol] [facility] (03104) Comment: Performed By: #### [id number] ## ## [facility],[address] [place] [address] 00370 Eosinophils/100 WBC (Bld) 5.6 0.0 - 7.0 % Normal 05-12 [facility] ( 84538) Comment: Performed By: #### [id number] ## ## [facility],[address] [place] [address] 78920 Erythrocyte distribution 14.4 12.0 - 15.6 % Normal [facility] (RBC) [Ratio] Hospital (19761) Comment: Performed By: #### [id number] ## ## [facility],[address] [place] [address] 13224 Hematocrit (Bld) [Volume 41.7 34.0 - 46.0 % Normal [facility] ( 84519) Comment: Performed By: #### [id number] ## ## [facility],[address] [place] [address] 59056 Hemoglobin (Bld) 13.8 12.0 - 16.0 g/dl Normal 05-30-2019 [facility] [Mass/Vol] [facility] (79112) Comment: Performed By: #### [id number] ## ## [facility],[address] [place] [address] 82585 Lymphocytes (Bld) 1.60 0.80 - 2.80 x10EE3/UL Normal 05-30-2019 [facility] [#/Vol] [facility] ospital (09000) Comment: Performed By: #### [id number] ## ## [facility],[address] [place] [address] 63296 Lymphocytes/100 WBC (Bld) 42.0 20.0 - 45.0 % Normal [facility] ( 70148) Comment: Performed By: #### [id number] ## ## [facility],[address] [place] [address] 82804 MANUAL DIFF N/A Normal 05-30-2019 [facility] (20367) Comment: Performed By: #### [id number] ## ## [facility],[address] [place] [address] 19886 MCH (RBC) [Entitic mass] 30 27 - 33 pg Normal 05-30 [facility] ( 39394) Comment: Performed By: #### [id number] ## ## [facility],[address] [facility] [address] MCHC (RBC) [Mass/Vol] 33 32 - 36 X10 3 Normal 05-30-20 19 [facility] ( 93479) Comment: Performed By: #### [id number] ## ## [facility],[address] [place] [address] 55864 MCV (RBC) [Entitic vol] 92 80 - 99 fl Normal 2018 [facility] ( 30772) Comment: Performed By: #### [id number] ## ## [facility],[address] [place] [address] 59581 Monocytes (Bld) 0.40 0.20 - 1.00 x10EE3/UL Normal 05-30-2019 Abelino nikolay Erwinna [#/Vol] [facility] (69715) Comment: Performed By: #### [id number] ## ## [facility],[address] [place] [address] 22508 MONOS % 11.2 0.0 - 10.0 % High 05-30-2019 [facility] (99580) Comment: Performed By: #### [id number] ## ## [facility],[address] [place] [address] 18993 Morphology Kasi (Bld) [Interp] N/A Normal 05-30-2019 [facility] ( 23605) Comment: Performed By: #### [id number] ## ## [facility],[address] [place] [address] 63870 Neutrophils (Bld) 1.50 1.50 - 7.10 x10EE3/UL Normal 05-30-2019 [facility] [#/Vol] [facility] (74761) Comment: Performed By: #### [id number] ## ## [facility],[address] [facility] [address] Neutrophils/100 WBC (Bld) 40.5 46.0 - 76.0 % Low [facility] ( 18545) Comment: Performed By: #### [id number] ## ## [facility],[address] [place] [address] 28161 Platelet mean volume 8.4 6.6 - 10.5 fl Normal 05-30-20 19 [facility] (Bld) [Entitic vol] [facility] (03324) Comment: Result Comment: AUTOMATED DI FFERENTIAL Performed By: #### [id number] ## ## [facility],[address] [place] [address] 62868 Platelets (d) 168 150 - 450 x10EE3/UL Normal 05-30-2019 [facility] [#/Vol] [facility] (12565) Comment: Performed By: #### [id number] ## ## [facility],[address] [place] [address] 79883 RBC (Bld) [#/Vol] 4.52 4.10 - 5.30 x 10EE6/UL Normal 9 [facility] (71463) Comment: Performed By: #### [id number] ## ## [facility],[address] [place] [address] 25612 WBC (Bld) [#/Vol] 3.8 4.5 - 10.8 x 10EE3/UL Low 05-30-2019 [facility] ( 70211) Comment: Performed By: #### [id number] ## ## [facility],[address] [place] [address] 22625 calcium total on 29-05-20 Calcium [Mass/Vol] 9.9 8.6 - 10.2 mg/dl Normal 05-30-2019 [facility] ( 11821) Comment: Performed By: #### [id number] ## ## [facility],[address] [place] [address] 53550 c-reactive protein on 2019-05-30 CRP [Mass/Vol] <0.10 0.00 - 1.00 mg/L Normal 05-30-2019 [facility] ( 46281) Comment: Performed By: #### [id number] ## ## [facility],[address] [place] [address] 22308 bun/creat egfr (non-) on 2019-05-30 Age - Reported 63 years Normal 05-30-2019 [facility] (74198) Comment: Performed By: #### [id number] ## ## [facility],[address] [place] [address] 43206 Creatinine [Mass/Vol] 0.8 0.6 - 1.2 mg/dl Normal 05-30-20 [facility] ( 45048) Comment: Performed By: #### [id number] ## ## [facility],[address] [place] [address] 48772 GFR/1.73 sq M >60 60 - 999 mL/min/{1.73_m2} Normal 9 [facility] non-blacks MDRD (000 00) (S/P/Bld) [Vol [...] PATIENTS 18 AND OLDER. Performed By: #### [id number] ## ## [facility],[address] [place] [address] 61605 Urea nitrogen [Mass/Vol] Normal 05-30 [facility] (41680) Comment: Result Comment: BUN/CREATINI NE eGFR NON-) Performed By: #### [id number] ## ## [facility],[address] [place] [address] 36697 Urea nitrogen [Mass/Vol] 10 6 - 20 mg/dl Normal 05-30 [facility] ( 98597) Comment: Performed By: #### [id number] ## ## [facility],[address] [place] [address] 92126 albumin plasma on Albumin [Mass/Vol] 4.2 3.4 - 4.8 g/dL Normal 05-30-2019 [facility] ( 64540) Comment: Performed By: #### [id number] ## ## [facility],[address] [place] [address] 11980 obsolete on 2017-10 OBSOLETE Orders Only Normal 11-02-2017 Hilda (MEPRAD) --------[facility] ( ) 1955 F CHTDate Jeevan e Provider Department11/02/17 YANN DIALLO JR During your visit (00 000) today, we recorded the follo wing information about you:Allergies As of Date: 11/02/2017 Noted Allergy ReactionAUGMENTIN (AMOXICILL IN-POT CLAVUL*05/04/2017 2 - RashDate Reviewed: 10/26/2017Reviewed by: Yann Diallo Jr. - Fully AssessedPrimary Visit Diagnosis:Obstructive sleep apnea (adult) (pediatric) [G47.33]Order(s):CPAP FULL F MALCOLM MASK [[id number]] Order #: [id number]: 1Prescriptions as of 11/02/2017 Sig: GABAPENTIN 300 [...] FOR*Follow-up and Disposition History RecordedEncounter Number: [id number] Status:Closed by YANN DIALLO on 11/02/17 neurology consultation on 2017-06-27 Neurology Consultation Normal 018 [facility] ([place]) (43631) vl carotid us/doppler complete on 2017-06-26 VL Carotid US/Doppler Complete Normal 06-26-2017 [facility] ([place]) (97420) progress note on 28-06-15 Protein mass conc Normal 06-26-2017 A [facility] ([place]) (18936) mri spine cervical w/o contrast on 2017-06-26 MRI SPINE ORIGINALMRI SPINE CERVICAL Normal [facility] CERVICAL W/O W/O CONTRAST [facility] ([place]) CONTRAST Statement: .. TIA, neck (04786) pain. Concern for stenosis.. Transient left foot [...] stenosis. Uncovertebral spurring and facet arthropathy cause lnyxvazz-hu-nemuvy right, mild left foraminal stenosis. C7-T1: No [...] BRAIN W/O ORIGINALMRA/MRI BRAIN W/O Normal 06-26-2017 [facility] CONTRAST CONTRAST Clinical Fo undation ([place]) Statement: tia. TECHNIQUE: ([id number]) Multiplanar, multisequence MRI imaging of the brain was obtained. Uxdp-da-pdaowm MRA of the head. Source data and [...] of the head. Interpreted By: Dereje Timmons [facility] S[facility]TH[facility] Report By: Dereje Timmons MDElectronically Signed By: Dereje Timmons MD Dictated Date: 06/26/2017 12:42:44 PM Prelim Date: 06/26/2017 12:42:44 PM Sign Date: 06/26/2017 12:47:58 PM lipid on 2017-06-26 Cholesterol in HDL mass 43 40-59 mg/dL Normal 2017 [facility] conc ([place]) (0000 0) Comment: Result Comment: HDL Referenc e Interval:Less than 40 Low - high risk60 or above Optimal/lowers risk Performed By: #### CBC, ADIF F, ANEU, BMP, GFR, APTT, PRO, TROPI ####[place] [address] Cholesterol in LDL mass 132 0-129 mg/dL High 2017 [facility] conc ([place]) (0000 0) Comment: Result Comment: LDL is a sherin culated result and requires a 12-hr fast.LDL Reference Interval:Less than 100 Juirnml198-561 Near or above gasckwz454-332 Borderline high vosb166-406 High otbo020 and above Very high risk Performed By: #### CBC, ADIF F, ANEU, BMP, GFR, APTT, PRO, TROPI ####[place] [address] Cholesterol mass conc 194 50-199 mg/dL Normal 06-26-19 18 [facility] ([place]) (0000 0) Comment: Result Comment: Cholesterol Reference Interval:Less than 200 Dirczhcyu071-503 Borderline high wucb297 and above High risk Performed By: #### CBC, ADIF F, ANEU, BMP, GFR, APTT, PRO, TROPI ####[place] [address] Triglyceride mass conc 97 3-149 mg/dL Normal 018 [facility] ([place]) (0000 0) Comment: Result Comment: Triglyceride Reference Interval:Less than 150 Eookmb078-954 Borderline high sgaf668-878 High layj441 or higher Very high risk Performed By: #### CBC, ADIF F, ANEU, BMP, GFR, APTT, PRO, TROPI ####[place] [address] inpatient patient summary on 2017-06-26 Inpatient Patient Summary Normal 06-11 [facility]) (08453) echocardiogram, adult on 2017-06-26 Echocardiogram, Adult Normal 06-26-19 18 [facility] ([place]) (91718) discharge summary o n 2017-06-26 Discharge Summary Normal 06-26-2017 A [facility] ([place]) (01941) depart summary on 2 Depart Summary Normal 06-26-2017 [facility]) (81580) cbc on 2017-06-26 Erythrocyte distribution 15.2 11.5-15.5 % Normal 06-26 [facility] Auto Ratio (RBC) [facility]) (50578) Comment: Performed By: #### CBC, ADIF F, ANEU, BMP, GFR, APTT, PRO, TROPI ####[place] [address] Hematocrit Auto Volume 40.0 34.0-46.0 % Normal 018 [facility] Fraction (Bld) ([place]) (71344) Comment: Performed By: #### CBC, ADIF F, ANEU, BMP, GFR, APTT, PRO, TROPI ####[place] [address] Hemoglobin mass conc 13.3 12.0-16.0 G/dL Normal 8 [facility] (Bld) [facility] ([place]) (82351) Comment: Performed By: #### CBC, ADIF F, ANEU, BMP, GFR, APTT, PRO, TROPI ####[place] [address] MCH Auto Entitic mass 30.9 27.0-33.0 pg Normal 06-26-19 18 [facility] (RBC) ([place]) (0000 0) Comment: Performed By: #### CBC, ADIF F, ANEU, BMP, GFR, APTT, PRO, TROPI ####[place] [address] MCHC Auto mass conc 33.2 32.0-36.0 G/dL Normal 06-26-2017 [facility] (RBC) ([place]) (0000 0) Comment: Performed By: #### CBC, ADIF F, ANEU, BMP, GFR, APTT, PRO, TROPI ####[place] [address] MCV Auto Entitic volume 93.2 80.0-99.0 fL Normal 2017 [facility] (RBC) ([place]) (0000 0) Comment: Performed By: #### CBC, ADIF F, ANEU, BMP, GFR, APTT, PRO, TROPI ####[place] [address] Platelet mean volume Auto 9.3 6.6-10.5 fL Normal 06-11 [facility] Entitic volume (Bld) ([place]) (78210) Comment: Performed By: #### CBC, ADIF F, ANEU, BMP, GFR, APTT, PRO, TROPI ####[place] [address] Platelets Auto #/vol 128 150-450 10 3/mcL Low 8 [facility] ([facility] ([place]) (0000 0) Comment: Performed By: #### CBC, ADIF F, ANEU, BMP, GFR, APTT, PRO, TROPI ####[place] [address] RBC Auto #/vol 4.30 4.10-5.30 10 6/mcL Normal 06-26-2017 [facility] ([place]) (06785) Comment: Performed By: #### CBC, ADIF F, ANEU, BMP, GFR, APTT, PRO, TROPI ####[place] [address] WBC Auto #/vol (d) 3.50 4.50-10.80 10 3/mcL Low 06-26-19 18 [facility] ([place]) (0000 0) Comment: Performed By: #### CBC, ADIF F, ANEU, BMP, GFR, APTT, PRO, TROPI ####[place] [address] bmp on 2017-06-26 Calcium mass conc 8.7 8.4-10.1 mg/dL Normal 06-26-2017 A [facility] ([place]) (21056) Comment: Performed By: #### CBC, ADIF F, ANEU, BMP, GFR, APTT, PRO, TROPI ####[place] [address] Chloride molar conc 106 98-110 mEq/L Normal 06-26-2017 [facility] ([place]) (16633) Comment: Performed By: #### CBC, ADIF F, ANEU, BMP, GFR, APTT, PRO, TROPI ####[place] [address] CO2 molar conc 29 22-32 mEq/L Normal 06-26-2017 [facility] ([place]) (71427) Comment: Performed By: #### CBC, ADIF F, ANEU, BMP, GFR, APTT, PRO, TROPI ####[place] [address] Creatinine mass conc 0.61 0.50-1.20 mg/dL Normal 8 [facility] ([place]) (0000 0) Comment: Performed By: #### CBC, ADIF F, ANEU, BMP, GFR, APTT, PRO, TROPI ####[place] [address] Electrolyte Balance 7.0 4.0-15.0 mEq/L Normal 06-26-2017 [facility] ([place]) (0000 0) Comment: Performed By: #### CBC, ADIF F, ANEU, BMP, GFR, APTT, PRO, TROPI ####[place] [address] Glucose mass conc 88 82-115 mg/dL Normal 06-26-2017 [facility] ([place]) (47540) Comment: Performed By: #### CBC, ADIF F, ANEU, BMP, GFR, APTT, PRO, TROPI ####[place] [address] Potassium molar conc 4.0 3.5-5.0 mEq/L Normal 8 [facility] ([place]) (0000 0) Comment: Performed By: #### CBC, ADIF F, ANEU, BMP, GFR, APTT, PRO, TROPI ####[place] [address] Sodium molar conc 142 136-145 mEq/L Normal 06-26-2017 [facility] ([place]) (59332) Comment: Performed By: #### CBC, ADIF F, ANEU, BMP, GFR, APTT, PRO, TROPI ####[place] [address] Urea nitrogen mass conc 11.0 8.0-22.0 mg/dL Normal 2017 [facility] ([place]) (79887) Comment: Performed By: #### CBC, ADIF F, ANEU, BMP, GFR, APTT, PRO, TROPI ####[place] [address] Urea nitrogen/Creatinine 18.0 10.0-22.0 ratio Normal 06-26 [facility] ratio [facility] n ([place]) (71702) Comment: Performed By: #### CBC, ADIF F, ANEU, BMP, GFR, APTT, PRO, TROPI ####[place] [address] a1c on 2017-06-26 Hemoglobin A1c/Hemoglobin.total 5.7 4.0-6.0 % Normal 06-26-2017 [facility] ([facility]) [facility] ([place]) (72074) Comment: Performed By: #### CBC, ADIF F, ANEU, BMP, GFR, APTT, PRO, TROPI ####[place] [address] .morph on 2017-06-11 6 Platelets Auto #/vol Slt Decreased Normal 06-26 [facility] ([facility]) ([place]) (0000 0) Comment: Performed By: #### CBC, ADIF F, ANEU, BMP, GFR, APTT, PRO, TROPI ####[place] [address] RBC morphology finding Nom Normal Normal [facility] ([facility]) ([place]) (0000 0) Comment: Performed By: #### CBC, ADIF F, ANEU, BMP, GFR, APTT, PRO, TROPI ####[place] [address] .manual diff on 01-10-16 Basophil %, Manual 1.0 0.0-2.5 % Normal 06-26-2017 [facility] ([place]) (47282) Comment: Performed By: #### CBC, ADIF F, ANEU, BMP, GFR, APTT, PRO, TROPI ####[place] [address] Basophil, Abs Manual 0.04 0.00-0.27 10 3/mcL Normal 8 [facility] ([place]) (46793) Comment: Performed By: #### CBC, ADIF F, ANEU, BMP, GFR, APTT, PRO, TROPI ####[place] [address] Cells Counted 100 Normal 06-26-2017 [facility]) (14501) Comment: Performed By: #### CBC, ADIF F, ANEU, BMP, GFR, APTT, PRO, TROPI ####[place] [id number] Eosinophil, Abs Manual 0.32 0.00-0.65 10 3/mcL Normal 018 [facility]) (90542) Comment: Performed By: #### CBC, ADIF F, ANEU, BMP, GFR, APTT, PRO, TROPI ####[place] [address] Lymphocyte %, Manual 37.0 20.0-40.0 % Normal 8 [facility] ([place]) (0000 0) Comment: Performed By: #### CBC, ADIF F, ANEU, BMP, GFR, APTT, PRO, TROPI ####[place] [address] Lymphocyte, Abs Manual 1.29 0.90-4.32 10 3/mcL Normal 018 [facility]) (81426) Comment: Performed By: #### CBC, ADIF F, ANEU, BMP, GFR, APTT, PRO, TROPI ####[place] [address] Monocyte %, Manual 4.0 2.0-13.0 % Normal 06-26-2017 [facility]) (97931) Comment: Result Comment: 9.0 Performed By: #### CBC, ADIF F, ANEU, BMP, GFR, APTT, PRO, TROPI ####[place] [id number] Monocyte, Abs Manual 0.14 0.09-1.40 10 3/mcL Normal 8 [facility]) (21760) Comment: Performed By: #### CBC, ADIF F, ANEU, BMP, GFR, APTT, PRO, TROPI ####[place] [address] Neutrophil %, Manual 49.0 50.0-75.0 % Low 8 [facility] ([place]) (29045) Comment: Performed By: #### CBC, ADIF F, ANEU, BMP, GFR, APTT, PRO, TROPI ####[place] [address] Neutrophil, Abs Manual 1.72 2.25-8.10 10 3/mcL Low 018 [facility] ([place]) (22807) Comment: Performed By: #### CBC, ADIF F, ANEU, BMP, GFR, APTT, PRO, TROPI ####[address] [address] .gfr on 2017-06-26 GFR Non- >60 Normal 06-26 [facility] ([place]) (49877) Comment: Result Comment: GFR Populati on mean [...] F, ANEU, BMP, GFR, APTT, PRO, TROPI ####[address] [address] GFR >60 Normal 8 [facility] ([place]) (65306) Comment: Result Comment: GFR Populati on mean [...] F, ANEU, BMP, GFR, APTT, PRO, TROPI ####[place] [address] xr chest 1 view on 2017 XR CHEST 1 VIEW ORIGINALXR CHEST 1 VIEW, Normal 2017 [facility] 2017 2:39 PM Fo undation ([place]) INDICATION: chest pain/SOB (27375) COMPARISON: 03 August 2008 FINDINGS: The lungs [...] Troponin I.cardiac <0.015 0.000-0.040 ng/mL Normal 8 [facility] ([place]) (43988) Comment: Result Comment: Troponin I r eference ranges (02/16/14): 0.00-0.040 ng/mL Negative and non-diagnostic. >0.040 ng/mL Consistent with cardiac damage, increased clinical risk and possibility of myocardial infarction. Serial measurements, a rise & fall in test results, clinical history, appropriate symptoms and/or ECG changes may help assess possibility of MD. *Other non-acute coronary syndrome conditions such as CHF, myocarditis, pulmonary emboli, sepsis and cardiac s urgery could result in myocardial damage and increased troponin levels. Performed By: #### CBC, ADIF F, ANEU, BMP, GFR, APTT, PRO, TROPI ####[facility] [place] [address] 19917 pro on 2017 INR Coag RelTime (PPP) 0.9 ratio Normal 018 [facility] ([place]) (63630) Comment: Result Comment: The [employer] (CHEST, 1991, 102:312S-25S)recommended the rapeutic range for oral anticoagulant therapy is:LOW RISK: Prophylaxis of venous thrombosis INR: 2.0-3.0 Treatment of pulmonary embolism 2.0-3.0 P revention of systemic embolism 2.0-3.0HIGH RISK: Mechanical prosthetic valves 2.5-3.5 Performed By: #### CBC, ADIF F, ANEU, BMP, GFR, APTT, PRO, TROPI ####[place] [id number] [address] [place] [address] 95194 Prothrombin time (PT) 10.9 9.0-14.5 seconds Normal 06-25-19 18 [facility] Coag time (PPP) [facility] ([place] (95894) Comment: Result Comment: Effective , Protime results may be affected by some antibiotics (i.e. Ciprofloxa nikki, Azithromycin, Bactrim) which may potentiate the action of oral anticoagu lants, with further increases in Protime/INR. 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 [...] Erythrocyte distribution 15.0 11.5-15.5 % Normal 06-25 [facility] width Auto Ratio (RBC) [facility] ([place]) (17996) Comment: Performed By: #### CBC, ADIF F, ANEU, BMP, GFR, APTT, PRO, TROPI ####[address] [address] Hematocrit Auto Volume 44.7 34.0-46.0 % Normal 018 [facility] Fraction (Bld) ([place]) (95549) Comment: Performed By: #### CBC, ADIF F, ANEU, BMP, GFR, APTT, PRO, TROPI ####[place] [id number] [address] [place] [address] 72764 Hemoglobin mass conc 15.0 12.0-16.0 G/dL Normal 8 [facility] (Bld) [facility] ([place]) (81516) Comment: Performed By: #### CBC, ADIF F, ANEU, BMP, GFR, APTT, PRO, TROPI ####[address] [address] MCH Auto Entitic mass 31.1 27.0-33.0 pg Normal 06-25-19 18 [facility] (RBC) ([place]) (0000 0) Comment: Performed By: #### CBC, ADIF F, ANEU, BMP, GFR, APTT, PRO, TROPI ####[place] [address] MCHC Auto mass conc 33.4 32.0-36.0 G/dL Normal 2017 [facility] (RBC) ([place]) (0000 0) Comment: Performed By: #### CBC, ADIF F, ANEU, BMP, GFR, APTT, PRO, TROPI ####[place] [address] MCV Auto Entitic volume 93.1 80.0-99.0 fL Normal 2017 [facility] (RBC) ([place]) (0000 0) Comment: Performed By: #### CBC, ADIF F, ANEU, BMP, GFR, APTT, PRO, TROPI ####[place] [address] Platelet mean volume Auto 8.3 6.6-10.5 fL Normal 06-11 [facility] Entitic volume ([facility]) ([place]) (40094) Comment: Performed By: #### CBC, ADIF F, ANEU, BMP, GFR, APTT, PRO, TROPI ####[place] [address] Platelets Auto #/vol 138 150-450 10 3/mcL Low 8 [facility] (d) ([place]) (0000 0) Comment: Performed By: #### CBC, ADIF F, ANEU, BMP, GFR, APTT, PRO, TROPI ####[place] [address] RBC Auto #/vol 4.80 4.10-5.30 10 6/mcL Normal 2017 [facility] (d) [facility] ([place]) (00502) Comment: Performed By: #### CBC, ADIF F, ANEU, BMP, GFR, APTT, PRO, TROPI ####[address] [address] WBC Auto #/vol 4.50 4.50-10.80 10 3/mcL Normal 2017 [facility]) (64619) Comment: Performed By: #### CBC, ADIF F, ANEU, BMP, GFR, APTT, PRO, TROPI ####[place] [address] bmp on 2017 Calcium mass conc 9.8 8.4-10.1 mg/dL Normal 2017 A [facility] ([place]) (00420) Comment: Performed By: #### CBC, ADIF F, ANEU, BMP, GFR, APTT, PRO, TROPI ####[place] [address] Chloride molar conc 104 98-110 mEq/L Normal 2017 [facility] ([place]) (04720) Comment: Performed By: #### CBC, ADIF F, ANEU, BMP, GFR, APTT, PRO, TROPI ####[place] [address] CO2 molar conc 29 22-32 mEq/L Normal 2017 [facility]) (46925) Comment: Performed By: #### CBC, ADIF F, ANEU, BMP, GFR, APTT, PRO, TROPI ####[place] [address] Creatinine mass conc 0.67 0.50-1.20 mg/dL Normal 8 [facility] ([place]) (0000 0) Comment: Performed By: #### CBC, ADIF F, ANEU, BMP, GFR, APTT, PRO, TROPI ####[place] [address] Electrolyte Balance 7.0 4.0-15.0 mEq/L Normal 2017 [facility] ([place]) (0000 0) Comment: Performed By: #### CBC, ADIF F, ANEU, BMP, GFR, APTT, PRO, TROPI ####[place] [address] Glucose mass conc 86 82-115 mg/dL Normal 2017 A [facility] ([place]) (51112) Comment: Performed By: #### CBC, ADIF F, ANEU, BMP, GFR, APTT, PRO, TROPI ####[place] [address] Potassium molar conc 4.1 3.5-5.0 mEq/L Normal 8 [facility] ([place]) (0000 0) Comment: Performed By: #### CBC, ADIF F, ANEU, BMP, GFR, APTT, PRO, TROPI ####[place] [address] Sodium molar conc 140 136-145 mEq/L Normal 2017 A [facility] ([place]) (12701) Comment: Performed By: #### CBC, ADIF F, ANEU, BMP, GFR, APTT, PRO, TROPI ####[place] [address] Urea nitrogen mass conc 12.0 8.0-22.0 mg/dL Normal 2017 [facility] ([place]) (86591) Comment: Performed By: #### CBC, ADIF F, ANEU, BMP, GFR, APTT, PRO, TROPI ####[place] [address] Urea nitrogen/Creatinine 17.9 10.0-22.0 ratio Normal 06-25 [facility] ratio Foundatio n ([place]) (80894) Comment: Performed By: #### CBC, ADIF F, ANEU, BMP, GFR, APTT, PRO, TROPI ####[place] [address] aptt on 2017 aPTT Coag time (Bld) None Normal 8 [facility] ([place]) (39830) Comment: Result Comment: per Pauly Performed By: #### CBC, ADIF F, ANEU, BMP, GFR, APTT, PRO, TROPI ####[place] [address] aPTT Coag time (Bld) 30.6 25.0-35.0 seconds Normal 8 [facility] ([place]) (17417) Comment: Result Comment: For Heparin anticoagulation therapy, the recommendedtherapeutic range is: 54-77 seconds (APTT Correlationwith Anti-Xa therapeutic range of 0.3-0.7 units/ml).PLEASE REFERENCE THE PHARMACY PROTOCOL FOR DOSING. Performed By: #### CBC, ADIF F, ANEU, BMP, GFR, APTT, PRO, TROPI ####[place] [address] .neuabs on Neutrophil, Absolute 2.10 2.25-8.10 10 3/mcL Low 8 [facility] ([place]) (0000 0) Comment: Performed By: #### CBC, ADIF F, ANEU, BMP, GFR, APTT, PRO, TROPI ####[place] [address] .gfr on 2017 GFR >60 Normal 8 [facility] ([place]) (01059) Comment: Result Comment: GFR Populati on mean [...] F, ANEU, BMP, GFR, APTT, PRO, TROPI ####[place] [id number] GFR Non- >60 Normal 06-25 [facility] ([place]) (04686) Comment: Result Comment: GFR Populati on mean [...] F, ANEU, BMP, GFR, APTT, PRO, TROPI ####[address] [address] .auto diff on 06-25 Ammonia mass conc 0.30 0.09-1.40 10 3/mcL Normal 2017 A [facility] () [facility]) (31940) Comment: Performed By: #### CBC, ADIF F, ANEU, BMP, GFR, APTT, PRO, TROPI ####[place] [address] Basophils Auto #/vol 0.00 0.00-0.27 10 3/mcL Normal 8 [facility] ([facility]) [facility]) (53724) Comment: Performed By: #### CBC, ADIF F, ANEU, BMP, GFR, APTT, PRO, TROPI ####[place] [address] Basophils/100 WBC Auto (d) 0.2 0.0-2.5 % Normal 0 2017 [facility] ([place]) (0000 0) Comment: Performed By: #### CBC, ADIF F, ANEU, BMP, GFR, APTT, PRO, TROPI ####[place] [address] Eosinophils Auto #/vol 0.20 0.00-0.65 10 3/mcL Normal 018 [facility]) (10960) Comment: Performed By: #### CBC, ADIF F, ANEU, BMP, GFR, APTT, PRO, TROPI ####[address] [address] Eosinophils/100 WBC Auto 3.7 0.0-6.0 % Normal 06-25 [facility]) (20841) Comment: Performed By: #### CBC, ADIF F, ANEU, BMP, GFR, APTT, PRO, TROPI ####[address] [address] Lymphocytes Auto #/vol 1.90 0.90-4.32 10 3/mcL Normal 018 [facility]) (91068) Comment: Performed By: #### CBC, ADIF F, ANEU, BMP, GFR, APTT, PRO, TROPI ####[address] [address] Lymphocytes/100 WBC Auto 42.1 20.0-40.0 % High 06-25 [facility]) (97069) Comment: Performed By: #### CBC, ADIF F, ANEU, BMP, GFR, APTT, PRO, TROPI ####[address] [address] Monocytes/100 WBC Auto ([facility]) 6.4 2.0-13.0 % Normal 0 2017 [facility]) (00329) Comment: Performed By: #### CBC, ADIF F, ANEU, BMP, GFR, APTT, PRO, TROPI ####[address] [address] Neutrophils/100 WBC Auto 47.6 50.0-75.0 % Low 06-25 [facility]) (86254) Comment: Performed By: #### CBC, ADIF F, ANEU, BMP, GFR, APTT, PRO, TROPI ####[address] [address] Encounters Date Type Reason Provider Location 01-09-2018 Patient encounter AGUSTIN PENA [facility] ity:A MIOK AVILA 2017 - Patient encounter MIKO AVILA Facility: A 06-26-2017 YANN POWELL 03-22-2020 Patient encounter Esophageal YANN Alcala ziyad procedure disorders [facility]ital E SCAR (75218) YANN Riley SCARNADIA AVILA UNKNOWN PROVIDER UNKNOWN PROVIDER UNKNOWN PROVIDER 03-12-2020 Patient encounter ACHAL JOHNNY Abdias [place] procedure [facility] (83069) MIKO AVILA UNKNOWN PROVIDER UNKNOWN PROVIDER UNKNOWN PROVIDER 03-12-2020 - Patient encounter ACHAL JOHNNY Abdias [place] 03-12-2020 procedure [facility] (32542) MIKO AVILA UNKNOWN PROVIDER UNKNOWN PROVIDER UNKNOWN PROVIDER 12-11-2019 [facility] [facility]-11-2019 [facility] (92143) MIKO AVILA UNKNOWN PROVIDER UNKNOWN PROVIDER UNKNOWN PROVIDER 11-26-2019 - Patient encounter YANN giraldo 11-26-2019 [facility] YANN DIALLO ([id number]) MIKO AVILA UNKNOWN PROVIDER UNKNOWN PROVIDER UNKNOWN PROVIDER 10-09-2019 - Patient encounter MIKO Calero [facility] enzo 10-09-2019 [facility] MIKO [facility]ILA ([id number]) MIKO AVILA UNKNOWN PROVIDER UNKNOWN PROVIDER UNKNOWN PROVIDER 05-30-2019 - [facility]-30-2019 [facility] ([id number]) MIKO AVILA UNKNOWN PROVIDER UNKNOWN PROVIDER UNKNOWN PROVIDER 03-04-2020 - Telephone Yann Diallo [facility] in 03-04-2020 encounter [facility] [place] Comment: Rx Refills (Gabapentin) Procedures Procedure Name Date Provider Location Mammography 12-05-2019 [facility] ([id number]) Colonoscopy 04-08-2015 [facility] ([id number]) Plan of Treatment Plan Description Date Location DTAP,TDAP,TD (3 - Td) DTAP,TDAP,TD (3 - Td) 08-04-2021 [facility] ([id number]) MAMMOGRAM MAMMOGRAM 12-04-2020 [facility] ([id number]) COLONOSCOPY COLONOSCOPY 04-08-2020 [facility] ([id number]) INFLUENZA (#1) INFLUENZA (#1) 2020 [facility] ([id number]) ADVANCE DIRECTIVE ADVANCE DIRECTIVE 2019 [facility] inic DISCUSSION DISCUSSION ([id number]) BONE DENSITY BONE DENSITY 2019 [facility] ([id number]) PNEUMOVAX AGE 65 AND OVER PNEUMOVAX AGE 65 AND OVER 2019 [facility] WITH 5YR LOOKBACK (#1) WITH 5YR LOOKBACK (#1) (4 5947) DIABETES SCREEN DIABETES SCREEN 07-14-2014 [facility] ([id number]) LIPID SCREEN LIPID SCREEN 02-18-2014 [facility] ([id number]) SHINGRIX VACCINE (1 of 2) SHINGRIX VACCINE (1 of 2) 2004 [facility] ([id number]) HEPATITIS C SCREENING HEPATITIS C SCREENING 1972 [facility] ([id number]) HIV SCREENING HIV SCREENING 1972 [facility] ([id number]) Immunizations Vaccine Notes Status Date Location DT(PEDIATRIC) diphtheria and tetanus (completed) 01-07-2003 [facility] toxoids, adsorbed for (61253 ) pediatric use Influenza Vaccine, influenza virus vaccine, (completed) 03-14-2011 [facility] Split-Non Spec unspecified formulation (4 5715) Influenza Vaccine, influenza virus vaccine, (completed) 03-23-2010 [facility] Split-Non Spec unspecified formulation (4 7965) Pneumovax pneumococcal (completed) 05-11-2010 [facility] polysaccharide vaccine, (441 95) 23 valent Pneumovax pneumococcal (completed) 03-25-2008 [facility] polysaccharide vaccine, (441 95) 23 valent Tdap (Age 7+) tetanus toxoid, reduced (completed) 08-04-2011 [facility] diphtheria toxoid, and (4419 5) acellular pertussis vaccine, adsorbed Payers Payer Name Policy Number Location MEDICARE OUTPATIENT [id number] [facility] ([id number]) [employer] MEDICARE [id number] [facility] ([place] ([id number]) [facility] MEDICARE [id number] [facility] ([id number]) [id number] [facility] ([id number]) [id number] [facility] ([id number]) [id number] [facility] ([id number]) [id number] [facility] ([id number]) [id number] [facility] ([id number]) [id number] [facility] ([id number]) [id number] [facility] ([id number]) The following information is from the original human readable contentNo Payer Records FoundNo Payer Records FoundNo Payer Records FoundNo Payer Records FoundNo Payer Records FoundNo Payer Records FoundNo Payer Records FoundNo Payer Records FoundNo Payer Records FoundNo Payer Records FoundNo Payer Records Found Social History Type Social History Description Date Locat ion Tobacco smoking status Never smoker 12-19-2019 [facility] ([id number]) NHIS Tobacco use and exposure Never used 12-19-2019 [facility] ([id number]) Alcohol intake Current non-drinker of 12-19-2019 [facility] (04741) alcohol (finding) Sex Assigned At Not on file [facility] ([id number]) The following information is from the original [...] Documents on File Type Date 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 [facility] provides no warranty or guarantee of the accuracy or completeness of information in this document. UNRECOGNIZED CONTENT PROVIDED BELOW FOR UNRECOGNIZED SECTION INFORMATION SOURCE DATE CREATED AUTHOR AUTHOR'S ORGANIZATIO N 11/28/2017 [facility] DATE CREATED AUTHOR AUTHOR'S ORGANIZATIO N 01/09/2018 [facility] ([place] DATE CREATED AUTHOR AUTHOR'S ORGANIZATIO N 06/03/2019 [facility] DATE CREATED AUTHOR AUTHOR'S ORGANIZATIO N 06/13/2019 [facility] DATE CREATED AUTHOR AUTHOR'S ORGANIZATIO N 12/29/2019 [facility] DATE CREATED AUTHOR AUTHOR'S ORGANIZATIO N 01/06/2020 [facility] DATE CREATED AUTHOR AUTHOR'S ORGANIZATIO N 03/06/2020 [facility] DATE CREATED AUTHOR AUTHOR'S ORGANIZATIO N 03/23/2020 [facility] UNRECOGNIZED CONTENT PROVIDED BELOW FOR UNRECOGNIZED SECTION Source Comments In the event this information is protected by the Federal Confidentiality of Alcohol and Drug Abuse Patient Records regulations: The Federal rules restrict any use of the information to criminally investigate or prosecute any alcohol or drug abuse patient.[facility] UNRECOGNIZED CONTENT PROVIDED BELOW FOR UNRECOGNIZED [...] 3x per day. Spoke with Same at [facility] who states last refill was shipped 01/07/20. PATRICIA Lafleur Telephone Encounter - [place] - 03/04/2020 2:13 PM EDTPatient is requesting a refill of her Gabapentin be sent to [facility]. Last seen in office on . documented in this encounter
== END 2019-11-06 10:47 | disposition home or self-care (01) ==
LOC: ED 16:47 → PCU 11-06 00:52
PROVIDERS: Admitting Provider Family Medicine; Emergency Provider Emergency Medicine; PCP Family Medicine; Visit Provider Family Medicine
DX: G45.9 Transient cerebral ischemic attack, unspecified (principal); K21.9 Gastro-esophageal reflux disease without esophagitis; K58.9 Irritable bowel syndrome, unspecified; M06.9 Rheumatoid arthritis, unspecified; G25.81 Restless legs syndrome; G47.33 Obstructive sleep apnea (adult) (pediatric); R73.09 Other abnormal glucose; E78.5 Hyperlipidemia, unspecified; F41.9 Anxiety disorder, unspecified; F32.9 Major depressive disorder, single episode, unspecified; R53.1 Weakness; R20.2 Paresthesia of skin; Z79.899 Other long term (current) drug therapy; Z79.82 Long term (current) use of aspirin
CPT/HCPCS: 70450; 70544; 70547; 70551; 71045; 80048; 80061; 84484; 85025; 85610; 85730; 93005; 93880; 94762; 96372; 97802; 99218; 99285; A4216; G0378

== ENCOUNTER → 2019-11-18 13:36 | Outpatient (CLI) | payer MEDICARE, SELFPAY ==
[2019-11-06 08:00] VITALS: BMI 23.4
--- NOTE | 2019-11-18 13:43 | RAD_ITS ---
STUDY: X-RAY CHEST REASON FOR EXAM: Female, 64 years old. Chest pain, possible pulmonary nodule TECHNIQUE: PA and lateral views of the chest. COMPARISON: None. FINDINGS: The lungs are clear and expanded. There is no demonstrated pleural abnormality. Normal size heart. Normal mediastinum and chantel. Normal visualized pulmonary arteries. Normal visualized aortic arch and descending thoracic aorta. Normal visualized thoracic spine. Normal visualized ribs, clavicles, and shoulders. There is no demonstrated abnormality of the visualized soft tissue structures of the upper abdomen. RAD/Chest PA and Lateral IMPRESSION: No acute pulmonary process, no plain film confirmation of previously described nodule Electronically Signed: Elio Ramirez MD at 17:25 EDT , Service support ,
--- OUTSIDE RECORDS SUMMARY | 2020-03-28 10:25 | XMS RPT_ITS | CCD ---
:1955 External Reference #:[id number] Author Organization [employer] Care Team Providers [...] Onset Location Amoxicillin / Rash 05-04-2017 - [place] [facility] Clavulanate (56393) Amoxicillin / Moderate (Severity Abdias Pom erene Clavulanate Mod[facility]) [facility] Iodine Swelling 11-14-2019 - [place] [facility] c (13162) Medications Medication Name Sig Date Prescriber Location Ascorbic Acid Ascorbic Acid Ccf Provider [facility] (VITAMIN C) chew Take Provider (43354 ) 500 mg by mouth once daily. 0 Active Comment: Take 500 mg by mouth once da daiana. Aspirin aspirin, enteric coated Ccf Provider C[facility] (58908) (ASPIRIN, ENTERIC COATED) Provider 81 mg EC tablet Take 81 mg by mouth once daily. 0 Active Comment: Take 81 mg by mouth once tracy ly. Cholecalciferol Cholecalciferol, Vitamin 11-09-2011 Sanjay Da Silva [facility] D3, (VITAMIN D) 1,000 Sanjay Church (4 4524) unit Cap Take 1 capsule by mouth once daily. 0 11/09/2011 Active Comment: Take 1 capsule by mouth once daily. DULoxetine DULoxetine (CYMBALTA) 60 Ccf Provider Ccf [facility] (63609) mg capsule Take 60 mg by Provider mouth daily at bedtime. 0 Active Comment: Take 60 mg by mouth daily at bedtime. Etanercept etanercept(ENBREL 50 MG/ML 02-16-2010 Sonal Pimentel ([facility] ) [facility] (0.98 ML) SUB-Q SYRINGE) (Hist) Michael (71 195) takes once weekly. 0 Sonal K ([facility]) 02/16/2010 Active (Hist) Michael Comment: takes once weekly. Famotidine famotidine (PEPCID) 20 mg Ccf Provider Cc [facility] (88333) tablet Take 40 mg by Provider mouth twice daily. 0 Active Comment: Take 40 mg by mouth twice da daiana. fluticasone fluticasone (FLONASE) 10-28-2014 [facility] Provider [facility] 50 mcg/actuation nasal (4419 5) spray Folic Acid FOLIC ACID 1 mg ORAL 08-08-2010 Ccf Provider [facility] tablet (06935) gabapentin gabapentin (NEURONTIN) 01-05-2020 - Yann Diallo [facility] 300 mg capsule 07-05-2020 Yann Diallo (35375) Indications: RLS (restless legs syndrome) Take 3 capsules daily as instructed. 270 capsule 0 01/05/2020 07/05/2020 Active Comment: Take 3 capsules daily as ins tructed. Linseed Oil flaxseed 1,000 mg cap [facility] Provider [facility] (68146) Take by mouth. 0 Active Provider Comment: Take by mouth. Loratadine loratadine (CLARITIN) 10 Ccf Provider Ccf [facility] (42971) mg tablet Take 10 mg by Provider mouth as needed. 0 Active Comment: Take 10 mg by mouth as neede d. Lovastatin lovastatin (MEVACOR) 10 Ccf Provider [facility] (42892) mg tablet Take 10 mg by Provider mouth daily at bedtime. 0 Active Comment: Take 10 mg by mouth daily at bedtime. MAGNESIUM GLUCONATE magnesium gluconate Ccf Provider C [facility] (MAG-G) 27 mg (500 mg) Provider (4419 5) tab Take by mouth once daily. 0 Active Comment: Take by mouth once daily. Methotrexate methotrexate 2.5 mg tablet Ccf Provider C [facility] Take 2.5 mg by mouth every Provider ( 61843) Sunday. 0 Active Comment: Take 2.5 mg by mouth every F riday. MULTI-VITAMIN ORAL MULTI-VITAMIN ORAL Take Ccf Provide r [facility] by mouth. 0 Active Provider (53960) Comment: Take by mouth. Nitroglycerin NITROSTAT 0.4 mg 07-19-2015 Ccf Provider [facility] SL tablet (84809) VITAMIN B COMPLEX ORAL VITAMIN B COMPLEX Ccf Provider [facility] ORAL Take by mouth Provider (00972) once daily. 0 Active Comment: Take by mouth once daily. 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 - [facility] (95982) Cardiac dysrhythmias Ventricular premature Active 02-12-2009 - [facility] beats (96312) Conduction disorders Right bundle branch Active 04-05-2015 - [facility] block (74625) Disorders of lipid Hyperlipidemia Active 04-05-2015 - [facility] metabolism (77697) Disorders of teeth and Congenital micrognathism Active 2014 - [facility]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 (76698) Esophageal disorders Gastroesophageal reflux Active 9 - [facility] disease (51833) Headache; including Migraine without aura, Active 07-19-2017 - [facility] migraine not refractory (72801) Mood disorders Hypomania Active 02-12-2009 - [place] [facility] (84094) Other and ill-defined Small vessel Active 07-19-2017 - [facility] cerebrovascular disease cerebrovascular disease (62553) Other gastrointestinal Irritable bowel syndrome Active 2014 - [facility] disorders with diarrhea (65674) Other hereditary and Restless legs Active 02-24-2019 - [facility] degenerative nervous (64987) system conditions Other upper respiratory Acute pharyngitis, Active 03-22-2020 - [facility] infections unspecified [facility] (09570) Residual codes; Obstructive sleep apnea Active 04-05-2015 - [facility] unclassified syndrome (22377) Rheumatoid arthritis and Rheumatoid arthritis Active [facility] related disease (38502) Thyroid disorders Multinodular goiter Active 04-05-2015 - [facility] (45180) Transient cerebral Transient cerebral Active 04-05-2015 - [facility] ischemia ischemia (73805) Unclassified Patient encounter status Active 02-16-2009 - [facility] (28276) Past or Other Problems Category Problem Name Status Date Location Diabetes mellitus Impaired fasting Completed 02-16-2009 - [facility] without complication glycaemia (70838) Neoplasms of unspecified Neoplasm of uncertain Completed [facility] nature or uncertain behavior of skin (441 95) behavior Nonmalignant breast Inversion of nipple Completed 05-15-2018 [facility] conditions (34144) Other bone disease and Osteopenia Completed 02-12-2009 [facility] musculoskeletal (95049) deformities Other circulatory H/O: TIA Completed 02-24-2019 - [facility] disease (96803) Other screening for Cardiovascular stress Completed 02-12-2009 - [facility] suspected conditions test abnormal (59951 ) (not mental disorders or infectious disease) Results Result Name Value Range Unit Interpretation Flag Date Location coronavirus pcr [ccl] on 2020-03-24 COVID 19 Result ADMINISTRATIVE PROFESSIONAL Negative CORNE Normal 03-24-2020 [facility] ( 89864) Comment: Result Comment: Negative for COVID19 (SARS CoV2) by PCR. This test was developed and its performance characteristics determined by [facility]'s [facility] [place]. This test has bee n authorized by FDA under an Emergency Use Authorization (EUA). This test has been validated in accordance with the FDA's Guidance Document Policy for Diagnostics Test ing in Laboratories Certified to Perform High Complexity Testing under CLI A prior to Emergency use Authorization for Coronavirus Disease 2019 dur ing the Public Health Emergency issued on August 09, 2019. [facility] Labor[facility] s [address] [place] [id number] Salvatore King III, M.D. [id number] Performed By: #### [id number] ## ## [facility],[address] [place] [address] 58381 COVID 19 Source ADMINISTRATIVE PROFESSIONAL UPPER RESPIRATORY TRACT Normal 03-24-[address] [facility] ospital (67182) Comment: Performed By: #### [id number] ## ## [facility],[address] [place] [address] 52080 coronavirus 2019 on 2020-03-24 COVID 19 Result ADMINISTRATIVE PROFESSIONAL Negative for COVID19 Normal 03-24-2020 [facility] (SARS CoV2) by PCR. Reference Lab (55437) Comment: Result Comment: Negative for This test was developed and its performance characteristics determined by [facility]'s [facility] [place]. This test has been authorized by FDA under an Emergency Use Authorization (EUA). This test has been validated in accordance with the FDA's Guidance Document Policy for Diagnostics Testing in Laboratories Certified to Perform High Complexity Testing under CLIA prior to Emergency use Authorization for Coronavir us Disease 2019 during the Public Health Emergency issued on August 09, 2019. COVID19 (SARS This test was developed and its performance characteristics determined by [facility]'s [facility] [place]. This test has been authorized by FDA under an Emergency Use Authorization (EUA). This test has been validated in accordance with the FDA's Guidance Document Policy for Diagnostics Testing in Laboratories Certified to Perform High Complexity Testing under CLIA prior to Emergency use Authorization for Coronavir us Disease 2019 during the Public Health Emergency issued on August 09, 2019. CoV2) by PCR. This test was developed and its performance characteristics determined by [facility]'s [facility] [place]. This test has been authorized by FDA under an Emergency Use Authorization (EUA). This test has been validated in accordance with the FDA's Guidance Document Policy for Diagnostics Testing in Laboratories Certified to Perform High Complexity Testing under CLIA prior to Emergency use Authorization for Coronavir us Disease 2019 during the Public Health Emergency issued on August 09, 2019. COVID 19 Source ADMINISTRATIVE PROFESSIONAL URTS Normal 03-24-2020 [facility] Reference Lab (77155) sgpt (alt) on 03-12 ALT [Catalytic activity/Vol] 17 8 - 35 U/L Normal 1 [facility] ( 62166) Comment: Performed By: #### [id number] ## ## [facility],[address] [place] [address] 54835 sgot (ast) on 03-12 AST/SGOT 22 13 - 39 U/L Normal 03-12-2020 [facility] (23132) Comment: Performed By: #### [id number] ## ## [facility],[address] [place] [address] 60864 sedrate on SEDRATE 13 0 - 30 mm/hr Normal 03-12-2020 [facility] (93730) Comment: Performed By: #### [id number] ## ## [facility],[address] [place] [address] 64782 creatinine on 03-12 Creatinine [Mass/Vol] 0.8 0.6 - 1.2 mg/dl Normal 03-12-20 [facility] ( 66207) Comment: Performed By: #### [id number] ## ## [facility],[address] [place] [address] 19752 cbc + diff on 03-12 Basophils (Bld) 0.00 0.00 - 0.10 x10EE3/UL Normal 03-12-2020 [facility] [#/Vol] [facility] ospital (55896) Comment: Performed By: #### [id number] ## ## [facility],[address] [place] [address] 70246 Basophils/100 WBC (Bld) 0.7 0.0 - 2.0 % Normal 2019 [facility] ( 85116) Comment: Performed By: #### [id number] ## ## [facility],[address] [place] [address] 06030 CBC + DIFF Normal 03-12-2020 [facility] (17536) Comment: Result Comment: CBC-COMPLETE BLOOD COUNT Performed By: #### [id number] ## ## [facility],[address] [place] [address] 81092 Eosinophils (Bld) 0.30 0.00 - 0.50 x10EE3/UL Normal 03-12-2020 [facility] [#/Vol] [facility] ospital (76076) Comment: Performed By: #### [id number] ## ## [facility],[address] [place] [address] 90420 Eosinophils/100 WBC (Bld) 6.8 0.0 - 7.0 % Normal [facility] ( 68106) Comment: Performed By: #### [id number] ## ## [facility],[address] [place] [address] 33898 Erythrocyte distribution 14.7 12.0 - 15.6 % Normal [facility] (RBC) [Ratio] [facility] (33919) Comment: Performed By: #### [id number] ## ## [facility],[address] [place] [address] 56797 Hematocrit (Bld) [Volume 41.2 34.0 - 46.0 % Normal [facility] ( 36056) Comment: Performed By: #### [id number] ## ## [facility],[address] [place] [address] 45024 Hemoglobin (Bld) 14.0 12.0 - 16.0 g/dl Normal 03-12-2020 [facility] [Mass/Vol] [facility] (28841) Comment: Performed By: #### [id number] ## ## [facility]di[address] [address] Lymphocytes (Bld) 1.70 0.80 - 2.80 x10EE3/UL Normal 03-12-2020 [facility] [#/Vol] [facility] (06497) Comment: Performed By: #### [id number] ## ## [address] [address] Lymphocytes/100 WBC (Bld) 35.1 20.0 - 45.0 % Normal [facility] ( 37899) Comment: Performed By: #### [id number] ## ## [address] [address] MANUAL DIFF N/A Normal 03-12-2020 [facility] (72262) Comment: Performed By: #### [id number] ## ## [address] [address] MCH (RBC) [Entitic mass] 32 27 - 33 pg Normal 03-12 [facility] ( 69036) Comment: Performed By: #### [id number] ## ## [address] [address] MCHC (RBC) [Mass/Vol] 34 32 - 36 X10 3 Normal 03-12-20 20 [facility] ( 61149) Comment: Performed By: #### [id number] ## ## [address] [address] MCV (RBC) [Entitic vol] 94 80 - 99 fl Normal 2019 [facility] ( 18310) Comment: Performed By: #### [id number] ## ## [address] [address] Monocytes (Bld) 0.50 0.20 - 1.00 x10EE3/UL Normal 03-12-2020 Abelino Garaywy [#/Vol] [facility] (26194) Comment: Performed By: #### [id number] ## ## [facility],[address] [facility] [address] MONOS % 9.7 0.0 - 10.0 % Normal 03-12-2020 [facility] (31868) Comment: Performed By: #### [id number] ## ## [facility],[address] [place] [address] 32981 Morphology Kasi (Bld) [Interp] N/A Normal 03-12-2020 [facility] ( 18261) Comment: Performed By: #### [id number] ## ## [facility],[address] [place] [address] 41658 Neutrophils (Bld) 2.30 1.50 - 7.10 x10EE3/UL Normal 03-12-2020 [facility] [#/Vol] [facility] (76533) Comment: Performed By: #### [id number] ## ## [facility],[address] [place] [address] 35108 Neutrophils/100 WBC (Bld) 47.7 46.0 - 76.0 % Normal [facility] ( 18622) Comment: Performed By: #### [id number] ## ## [facility],[address] [place] [address] 12395 Platelet mean volume 7.9 6.6 - 10.5 fl Normal 03-12-20 20 [facility] (Bld) [Entitic vol] [facility] (89412) Comment: Result Comment: AUTOMATED DI FFERENTIAL Performed By: #### [id number] ## ## [facility],[address] [place] [address] 45971 Platelets (Bld) 209 150 - 450 x10EE3/UL Normal 03-12-2020 [facility] [#/Vol] [facility]ital (91183) Comment: Performed By: #### [id number] ## ## [facility],[address] [place] [address] 35237 RBC (Bld) [#/Vol] 4.38 4.10 - 5.30 x 10EE6/UL Normal 0 [facility] ospital (69130) Comment: Performed By: #### [id number] ## ## [facility],[address] [place] [address] 29069 WBC (Bld) [#/Vol] 4.9 4.5 - 10.8 x 10EE3/UL Normal 03-12-2020 [facility] ( 08360) Comment: Performed By: #### [id number] ## ## [facility],[address] [place] [address] 15260 c-reactive protein on 2020-03-12 CRP [Mass/Vol] <0.10 0.00 - 1.00 mg/L Normal 03-12-2020 [facility] ( 09756) Comment: Performed By: #### [id number] ## ## [facility],[address] [place] [address] 19254 bun on 2020-03-12 Urea nitrogen [Mass/Vol] 13 6 - 20 mg/dl Normal 03-12 [facility] ( 92813) Comment: Performed By: #### [id number] ## ## [facility],[address] [place] [address] 19786 albumin plasma on Albumin [Mass/Vol] 4.2 3.4 - 4.8 g/dL Normal 03-12-2020 [facility] ( 39768) Comment: Performed By: #### [id number] ## ## [facility],[address] [place] [address] 86561 cnpn on 2020-03-04 CNPN Telephone ([facility]) Normal 03-04-2020 [facility] CLAIRE GUEVARA ([id number]) 1955 F Medical Date Time Provider Department Center 03/04/20 YANN DIALLO JR ([id number]) During your visit today, we recorded the following informati on about you: [place] 03/04/2020 2:14 PM Signed Patient is requesting a refill of her Gabapentin be se nt to [facility]. Last seen in office on 12/15/19. PATRICIA Lafleur 03/04/2020 4:09 PM Signed Spoke with patient who states she only has a wee k left. Verified she received last refill end of December and is taking it 3x per day. Spoke with Same at [facility] who s rocky last refill was shipped 01/07/20. PATRICIA Lafleur [...] on 03/05/20 obsolete on 2019-12 OBSOLETE Refill ([facility]) Normal 01-05-2020 [place] [facility] CLAIRE GUEVARA ([id number]) 1955 [facility] Time Provider Department (77438) 01/05/20 YANN DIALLO JR During your visit today, we recorded the following informati on about you: Tri Coombs LPN 01/05/2020 4:31 PM Signed Patient calling asking [...] 01/05/20 progress on 2019-12 PROGRESS HNO ID: [id number] Normal 12-19-2019 [facility] Author: Masha San [facility] Service: ? ([id number]) Author Type: Physician Type: Progress Notes Filed: 12/19/2019 11:06 AM Note Text: Masha San MD [facility] [address] [place] [address] [id number] SUBJECTIVE Chief Complaint: Patient presents with: Yearly [...] 08/04/08 AND 10/2013 Normal Heart Cath --- [facility], Dr. Pena - LAPAROSCOPIC CHOLEYCYSTECTOMY 09/11 Cholecystectomy, [...] mg (500 mg) tab Take by lizy th once daily. - Ascorbic Acid (VITAMIN C) [...] awareness and call with a ny concerns. Follow up: Return if symptoms worsen or fail to improve. Masha San MD 12/19/2019 11:03 AM hemogram on 2019-12 Erythrocyte distribution 14.2 11.7-14.4 % Normal 12-18 [facility] width (RBC) [Ratio] System (15572) Comment: Performed By: #### CBC1 #### [facility] [address] [place], [place] [address] Hematocrit (Bld) [Volume 41.9 34.1-44.9 % Normal 12-18 [facility] fraction] System (00 000) Comment: Performed By: #### CBC1 #### [facility] [address] [place], [place] [address] Hemoglobin (Bld) 13.8 11.2-15.7 g/dL Normal 12-19-2019 [facility] [Mass/Vol] System (0 0000) Comment: Performed By: #### CBC1 #### [facility] [address] [place], [place] [address] MCH (RBC) [Entitic mass] 31.4 25.6-32.2 pg Normal 12-18 [facility] System (00 000) Comment: Performed By: #### CBC1 #### [facility] [address] [place], [place] [address] MCHC (RBC) [Mass/Vol] 32.9 31.6-34.8 % Normal 12-19-19 20 [facility] System (59140) Comment: Performed By: #### CBC1 #### [facility] [address] [place], [place] [address] MCV (RBC) [Entitic vol] 95.2 79.4-94.8 fl High 2019 [facility] System (81844) Comment: Performed By: #### CBC1 #### [facility] [address] [place], [place] [address] Platelet mean volume (Bld) 10.0 9.4-12.3 fl Normal [facility] [Entitic vol] System (19181) Comment: Performed By: #### CBC1 #### [facility] [address] [place], [place] [address] Platelets (Bld) [#/Vol] 186 182-369 thou/cmm Normal 2019 [facility] (00 000) Comment: Performed By: #### CBC1 #### [facility] [address] [place], [place] [address] RBC (Bld) [#/Vol] 4.40 3.93-5.22 mil/cmm Normal 12-19-2019 [facility] (00 000) Comment: Performed By: #### CBC1 #### [facility] [address] [place], [place] [address] RDW SD 48.8 36.4-46.3 fl High 12-19-2019 [facility] (74804) Comment: Performed By: #### CBC1 #### [facility] [address] [place], [place] [address] WBC (Bld) [#/Vol] 4.86 3.98-10.04 thou/cmm Normal 12-19-2019 [facility] (00 000) Comment: Performed By: #### CBC1 #### [facility] [address] [place], [place] [address] cnov on 2019-12-19 CNOV Office Visit (AGGBRCR) Normal 12-18- 020 [facility] CLAIRE GUEVARA ([id number]) 1955 F Medical Date Time Provider Department Center 12/19/19 11:00 AM MASHA SAN A[facility] (40905) During your visit today, we recorded the following informati on about you: Pulse Blood pressure Weight Height 91/minute 117/84 60.8 kg 1.626 m Rani Skinner RN 12/19/2019 10:56 AM Signed Denies any new palpable masses skin changes or p ain. Mammogram of 12/05/19 was negative PEDRO LUIS Jacobs MD 12/19/2019 11:06 AM Signed Masha San MD [facility] [address] [place] [id number] SUBJECTIVE Chief Complaint: Patient presents with: Yearly Exam . HPI Claire Guevara is a 64 year old female here today for foll ow up. She is status post left breast duct excisional biopsy on 07/23/2017 for new onset nipple inversion and negative imaging. Final pathology showed duct ectasia. ? Today, she had bilateral mammograms done which I reviewed. T hey showed scattered fibroglandular tis sarah, post op changes in the left breast and nothing suspicious, BIRADS 2. ? She denies palpating any breast masses or axillary adenopath y. No skin or nipple changes. No nipple discharge. Nursing Notes: Rani Skinner RN 12/19/2019 10:56 AM Signed Denies any new palpable masses skin changes or p ain. Mammogram of 12/05/19 was negative aRni Skinner RN AGE [age][facility] 12 AGE [...] CHOLECYSTECTOMY 2012 - COLONOSCOP W/ OR W/O [facility] SPEC 08/13 Colonoscopy - COLONOSCOP W/ OR W/O [facility] SPEC 04/03/13 Colonoscopy - COLONOSCOP W/ OR W/O [facility] SPEC 04/08/15 Colonoscopy - EGD W/O OR W/BRUSH/WASH 04/03/13 EGD - FOOT LEFT OP SURGERY 06/2014 - HEART CATHETERIZATION 08/04/08 AND 10/2013 Normal Heart Cath --- [facility], Dr. Pena - LAPAROSCOPIC CHOLEYCYSTECTOMY 09/11 Cholecystectomy, [...] mg (500 mg) tab Take by lizy th once daily. - Ascorbic Acid (VITAMIN C) [...] monthly breast awareness and call with a in concerns. Follow up: Return if symptoms worsen [...] monthly breast awareness and call with a in concerns. Referring Provider: MIKO AVILA [[id number]] Allergies As of Date: 12/19/2019 Noted Allergy [...] capsules daily as inst* DULOXETINE 60 MG CAPSULE,AJIDEN* Take 60 mg by mouth daily at [...] without status migrai*02/24/2019 Visit Notes: >> Rani (Rn) Susanne Greer Dec 19, 2019 10:55 AM Status: Milla [...] 12/19/19 progress on 2019-12 PROGRESS HNO ID: [id number] Normal 12-15-2019 [place] Author: Yann Diallo Jr. Clinic Service: ? [place] Author Type: Physician ([id number]) Type: Progress Notes Filed: 12/15/2019 6:08 PM [...] for neuro follow up after hospitalization at [facility]. Notes reviewed . Per record: Since pt was last seen pt was admitted at [facility] f or ? TIA. [place] records reviewed. Pt had experienced numbness and [...] the start of Plavix. Records reviewed from [place]. MRI, MRA negative, LDL 104. Hemoglobi n A1c 5.7. She does follow with cardiology. . I will order an echo. [place] echo on record was from 2018. Patient agrees and will follow-up with Dr. Diallo in [place] in 6-8 weeks. States now having problems thinking of the correct words. St ates week ago Sunday states every other words could not get out. States co uple episodes today. States noticed since in the hospital. No specific lui e of day symptoms are present. Note at time of event was not on any antiplt therapy. Now on dual antiplt before trying single agent. Now having epistaxis and bleedin g. Now on Lovastatin. No issues. Reviewed history of events as above and confirmed prior docu mented history. She did have sleep study at [place] 2 weeks ago. I do no t [...] that OSH sleep lab indicated not sleep quality assurance tester ea on PSG. Records requested to verify. [...] with more than 50% of the total kooo-qm-tuts time of the visit in counseling / coordination of care. PDMP website checked and validated. All prescriptions have b een APPROPRIATELY filled. No suspicious activity was identified. 12/15/2019 by MD kylah Carterov on 2019-12-15 CNOV Office Visit (DAVIDOWS) Normal 12-15-19 20 [place] [facility] CLAIRE GUEVARA ([id number]) 1955 F [place] Date Time Provider Department ([id number]) 12/15/19 4:40 PM YANN DIALLO JR During [...] patient then seen by Margarito Santos CNP [facility] neuro follow up after hospitalization at [facility]. Notes reviewed. P er record: Since pt was last seen pt was admitted at [facility] for ? TIA. [place] records reviewed. Pt had exp erienced numbness [...] the start of Plavix. Records reviewed from [place]. MRI, MRA negative, LDL 104. Hemoglobin A1c 5.7. She does follow with cardiology. . I will order an echo. Last echo on record was from 2018. Patient agrees and will follow-up with Dr. Diallo in [place] in 6-8 weeks. States now having problems [...] history. She did have sleep study at [place] 2 weeks ago. I do not have results of the study. She states they did not split as stil l did not meet AHI of 5. Will [...] with more than 50% of the total tadl-mi-tono time of the visit in counseling / coordination of care. PDMP website checked and validated. All prescrip tions have been APPROPRIATELY filled. No suspicious activity was ident ified. 12/15/2019 by Yann Diallo MD Referring Provider: YANN DIALLO JR [[id number]] Allergies As of Date: 12/15/2019 Noted Allergy Reaction AUGMENTIN (AMOXICILLIN-POT CLAVUL*05/04/2017 2 - Rash CONTRAST DYE (IODINE) 11/14/2019 7 - Swelling Date Reviewed: 12/15/2019 Reviewed by: Yann Diallo Jr. - Fully Assessed Reason for Visit: Established Patient [175] Cmt: [facility] Primary Visit Diagnosis:Transient cerebral ische rosanne, unspecified type [G45.9] Other Visit Diagnoses:Obstructive sleep apnea (adult) (pedia tric) [G47.33] RLS (restless legs syndrome) [G25.81] Cognitive impairment [R41.89] Order(s):CBC [SQCBC] Order #: [id number] FUTURE CONSULT TO NEUROPSYCH [[id number]] Order #: [id number]: 1 FU TURE gabapentin (NEURONTIN) 300 mg [...] 8 - 35 U/L Normal 0 12-11-2019 [facility] ( 79627) Comment: Performed By: #### [id number] ## ## [facility],[address] [place] [address] 55506 sgot (ast) on 12-10 AST/SGOT 26 13 - 39 U/L Normal 12-11-2019 [facility] (12399) Comment: Performed By: #### [id number] ## ## [facility],[address] [place] [address] 09809 sedrate on SEDRATE 14 0 - 30 mm/hr Normal 12-11-2019 [facility] (44512) Comment: Performed By: #### [id number] ## ## [facility],[address] [place], [place] [id number] creatinine on 12-10 Creatinine [Mass/Vol] 0.8 0.6 - 1.2 mg/dl Normal 12-11-19 [facility] ( 28725) Comment: Performed By: #### [id number] ## ## [facility],[address] [place] [address] 09798 cbc + diff on 12-10 Basophils (Bld) 0.00 0.00 - 0.10 x10EE3/UL Normal 12-11-2019 [facility], 1928[facility] [#/Vol] [facility] (02471) Comment: Performed By: #### [id number] ## ## [facility],[address] [place] [address] 80960 Basophils/100 WBC (Bld) 0.7 0.0 - 2.0 % Normal 2019 [facility] ( 88631) Comment: Performed By: #### [id number] ## ## [facility],[address] [place] [address] 68806 CBC + DIFF Normal 12-11-2019 [facility] (50649) Comment: Result Comment: CBC-COMPLETE BLOOD COUNT Performed By: #### [id number] ## ## [facility],[address] [place] [address] 01996 Eosinophils (Bld) 0.20 0.00 - 0.50 x10EE3/UL Normal 12-11-2019 [facility] [#/Vol] [facility] (74179) Comment: Performed By: #### [id number] ## ## [facility],[address] [place] [address] 46164 Eosinophils/100 WBC (Bld) 5.2 0.0 - 7.0 % Normal [facility] ( 01329) Comment: Performed By: #### [id number] ## ## [facility],[address] [place] [address] 19346 Erythrocyte distribution 14.4 12.0 - 15.6 % Normal [facility] (RBC) [Ratio] [facility] (13570) Comment: Performed By: #### [id number] ## ## [facility],[address] [place] [address] 35508 Hematocrit (Bld) [Volume 40.8 34.0 - 46.0 % Normal [facility]] [facility] ( 73790) Comment: Performed By: #### [id number] ## ## [facility],[address] [place] [address] 05238 Hemoglobin (Bld) 14.0 12.0 - 16.0 g/dl Normal 12-11-2019 [facility] [Mass/Vol] [facility] (16828) Comment: Performed By: #### [id number] ## ## [facility],[address] [place] [address] 14280 Lymphocytes (Bld) 1.60 0.80 - 2.80 x10EE3/UL Normal 12-11-2019 [facility] [#/Vol] [facility] (18809) Comment: Performed By: #### [id number] ## ## [facility],[address] [place] [address] 21319 Lymphocytes/100 WBC (Bld) 36.5 20.0 - 45.0 % Normal [facility] ( 81785) Comment: Performed By: #### [id number] ## ## [facility],[address] [place] [address] 58988 MANUAL DIFF N/A Normal 12-11-2019 [facility] (79991) Comment: Performed By: #### [id number] ## ## [facility],[address] [place] [address] 35151 MCH (RBC) [Entitic mass] 32 27 - 33 pg Normal 12-10 [facility] ( 57298) Comment: Performed By: #### [id number] ## ## [facility],[address] [place] [address] 44474 MCHC (RBC) [Mass/Vol] 34 32 - 36 X10 3 Normal 12-11-19 20 [facility] ( 53576) Comment: Performed By: #### [id number] ## ## [facility],[address] [place] [address] 48999 MCV (RBC) [Entitic vol] 94 80 - 99 fl Normal 2019 [facility] ( 60643) Comment: Performed By: #### [id number] ## ## [facility],[address] [place] [address] 33047 Monocytes (Bld) 0.40 0.20 - 1.00 x10EE3/UL Normal 12-11-2019 [facility] [#/Vol] [facility] (68734) Comment: Performed By: #### [id number] ## ## [facility],[address] [place] [address] 80175 MONOS % 9.8 0.0 - 10.0 % Normal 12-11-2019 [facility] (19619) Comment: Performed By: #### [id number] ## ## [facility],[address] [place] [address] 15009 Morphology Kasi (Bld) [Interp] N/A Normal 12-11-2019 [facility] ( 00841) Comment: Performed By: #### [id number] ## ## [facility],[address] [place] [address] 98187 Neutrophils (Bld) 2.10 1.50 - 7.10 x10EE3/UL Normal 12-11-2019 [facility] [#/Vol] [facility] (64694) Comment: Performed By: #### [id number] ## ## [facility],[address] [place] [address] 52163 Neutrophils/100 WBC (Bld) 47.8 46.0 - 76.0 % Normal [facility] ( 07246) Comment: Performed By: #### [id number] ## ## [facility],[address] [place] [address] 00396 Platelet mean volume 7.9 6.6 - 10.5 fl Normal 12-11-19 20 [facility] (d) [Entitic vol] [facility] (70062) Comment: Result Comment: AUTOMATED DI FFERENTIAL Performed By: #### [id number] ## ## [facility],[address] [place] [address] 98925 Platelets (Bld) 235 150 - 450 x10EE3/UL Normal 12-11-2019 [facility] [#/Vol] [facility] (03359) Comment: Performed By: #### [id number] ## ## [facility],[address] [place] [address] 44109 RBC (Bld) [#/Vol] 4.32 4.10 - 5.30 x 10EE6/UL Normal 0 [facility] (26874) Comment: Performed By: #### [id number] ## ## [facility],[address] [place] [address] [place] [address] WBC (Bld) [#/Vol] 4.4 4.5 - 10.8 x 10EE3/UL Low 12-11-2019 [facility] ( 09435) Comment: Performed By: #### [id number] ## ## [facility],[address] [place], [place] [address] c-reactive protein on 2019-12-11 CRP [Mass/Vol] <0.10 0.00 - 1.00 mg/L Normal 12-11-2019 [facility] ( 76565) Comment: Performed By: #### [id number] ## ## [facility],[address] [place], [place] [id number] bun on 2019-12-11 Urea nitrogen [Mass/Vol] 12 6 - 20 mg/dl Normal 12-10 [facility] ( 31394) Comment: Performed By: #### [id number] ## ## [facility],[address] [place], [place] [address] albumin plasma [ccl] on 2019-12-11 Albumin [Mass/Vol] 4.2 3.4 - 4.8 g/dL Normal 12-11-2019 [facility] ( 45589) Comment: Performed By: #### [id number] ## ## [facility],[address] [place], [place] [id number] [facility] screening on 28-11-25 [facility] SCREENING Final Report Normal 12-05-2019 Mal matos [facility] DATE OF EXAM: Dec 05 2019 1:57PM [facility] AAW 0581 - [facility] SCREENING / (85291) PROCEDURE REASON: screening Physician Interpretation #[id number] - [facility] SCREENING BILATERAL DIGITAL SCREENING MAMMOGRAM WITH CAD: 12/05/2019 HISTORY: Screening / Screening Mammogram-patient reports no symptoms. RESULT: TECHNIQUE: The study was acquired using full field digital t echnology and interpreted from soft copy. Current study was also evaluated with a Computer Aided Detec tion (CAD). Comparison is made to exams dated: 12/04/2018 mammogram - [facility] and 03/02/2018 mammogram - [facility]. There are scattered fibroglandular elements in both breasts. The left breast has post-operative findings. No significant masses, calcifications, or other findings are seen in either breast. There has been no significant interval change. IMPRESSION: BENIGN FINDING There is no mammographic evidence of malignancy. A 1 year sc reening mammogram is recommended. Melissa farnsworth/cecelia:12/05/2019 14:04:06 copy to: Dr. Miko Avila M.D., Dr. Miko Avila, ph: , fax: [phone] A/C Tech(s): Zahra Farris, [facility] er letter sent: Normal over 40 Mammogram BI-RADS: [...] Health, Family Medicine, and Medical/Surgical Oncology, the [facility] has carefully reviewed the data and [...] providers when to sto p screening mammograms. Internal Wholesaler: Cecelia Transcribe Date/Time: Dec 05 2019 1:44P Dictated by : MELISSA STODDARD MD This examination was interpreted and the report reviewed and electronically signed by: MELISSA STODDARD MD on Dec 05 2019 2:04PM EST cnco on 2019-12-05 CNCO HNO ID: [id number] Normal 12-05-2019 [facility] Author: Mammography Coordinator Center ([id number]) Service: ? Author Type: Physician Type: Letter Filed: 12/08/2019 11:34 PM Note Text: [facility] [address] [place] [address] December 05, 2019 PID: [id number] Claire Guevara [address] [place] [address] Dear Ms. Guevara, We are pleased to [...] report will be kept on file at [facility] as part of your permanent medical record and are available f or your continuing care. Thank you for allowing us to help in meeting your health car e needs. Sincerely, Dr. Stoddard Interpreting Radiologist [facility] (Normal over 40) cnpn on 2019-11-25 CNPN Telephone (NEURBA) Normal 11-25-2019 [facility] CLAIRE GUEVARA ([id number]) 1955 F Medical Date Time Provider Department Center 11/25/19 YANN DIALLO JR NEURBA ([id number]) During your visit today, we recorded the [...] Ceballos - Fully Assessed Reason for Visit: Orders [681] Primary Visit Diagnosis:Obstructive sleep apnea (adult ) (pediatric) [G47.33] Order(s):PAP TITRATION PSG (CPAP, BIPAP, ASV) [[id number]] Or pat #: [id number] FUTURE Prescriptions as of 11/25/2019 Sig: DULOXETINE [...] Encounter Status:Closed by YANN DIALLO on 11/25/19 [place] Telephone (NEURGN) Normal 11-25-2019 [place] CLAIRE Ross ([id number]) 1955 F Medical Date Time Provider Department Center 11/25/19 QUINTIN SANTOS (HEALTH AND PHYSICAL EDUCATION TEACHER, [employer]GER [employer]) NEURGN ([id number]) During your visit today, we recorded the following informati on about you: Quintin Santos APRN.ALFONSO, MANAGER CARGO 11/25/2019 10:21 AM Signed Please let pt know that her ECHO is norm al and to continue with follow up with Dr. Yoel Casey MA 11/25/2019 10:38 AM Signed 11/25/2019 10:37:34 Gave patient results per Quintin Santos,ALFONSO. Patient john balized understanding. Danna Casey MA Allergies As of Date: 11/25/2019 Noted Allergy Reaction AUGMENTIN (AMOXICILLIN-POT CLAVUL*05/04/2017 2 - Rash CONTRAST DYE (IODINE) 11/14/2019 7 - Swelling Date Reviewed: 11/14/2019 Reviewed by: Sanjiv Ceballos - Fully Assessed Reason for Visit: Follow [...] 11/25/19 progress on 2019-11 PROGRESS HNO ID: [id number] Normal 11-14-2019 [facility] Author: Quintin (Material Assistant Alfonso) ALFONSO Santos [facility] Service: ? ([id number]) Author Type: Nurse Practitioner Type: Progress Notes Filed: 11/14/2019 3:02 PM Note Text: Neurology Follow Up Note Date: November 14, 2019 Patient Name: Claire Guevara HPI: This is Ms. Claire Guevara a 64 year old female who p resents to [facility] for follow up of TIA. Pt was last se en by Dr. Diallo 08/28 for ZAID, RLS, and migraines. Since pt was last seen pt was admitted at [facility] f or ? TIA. [place] records reviewed. Pt had experienced numbness and [...] the start of Plavix. Records reviewed from [place]. MRI, MRA negative, LDL 104. Hemoglobi n A1c 5.7. She does follow with cardiology. . I will order an echo. [place] echo on record was from 2018. Patient agrees and will follow-up with Dr. Diallo in [place] in 6-8 weeks. Medications: DULoxetine (CYMBALTA) 60 [...] 10 mg tablet Take 10 mg by [facility] once daily. PMH/PSH/FH/ALLERGIES: Reviewed from last [...] she is to follow-up with Dr. Katarzyna Santos APRN.[place], Department of Neurology 30 minutes were completed [id number] cnpn on 2019-11-14 CNPN Telephone (NEURGN) Normal 11-14-2019 [place] CLAIRE Ross ([id number]) 1955 F Medical Date Time Provider Department Center 11/14/19 QUINTIN SANTOS (HEALTH AND PHYSICAL EDUCATION TEACHER, [facility]) NEURGN ([id number]) During your visit today, we recorded the following informati on about you: El Prasad 11/14/2019 3:05 PM Signed Patient was scheduled for an echo on 11/24/19 at 1100 am at [facility]. Patient was given the date/time/location Allergies As of Date: 11/14/2019 Noted Allergy Reaction AUGMENTIN (AMOXICILLIN-POT CLAVUL*05/04/2017 2 - Rash CONTRAST DYE (IODINE) 11/14/2019 7 - Swelling Date Reviewed: 11/14/2019 Reviewed by: Sanjiv Ceballos - Fully Assessed Reason for Visit: Procedure [...] 2019-11-14 CNOV Office Visit (NEURGN) Normal 11-14-19 [place] CLAIRE GUEVARA ([id number]) 1955 F Medical Date Time Provider Department Center 11/14/19 1:00 PM QUINTIN SANTOS (HEALTH AND PHYSICAL EDUCATION TEACHER, [employer]) NEURGN ([id number]) During your visit today, we recorded the following informati on about you: Pulse Blood pressure Weight Height 93/minute 122/66 62.6 kg 1.626 m Quintin Santos APRN.MANAGER CARGO, MANAGER CARGO 11/14/2019 3:02 PM Signed Neurology Follow Up Note Date: November 14, 2019 Patient Name: Claire Guevara HPI: This is Ms. Claire Guevara a 64 year old female who presents to [facility] for follow up of TIA. Pt was last seen by Dr. Diallo 08/28 for ZAID, RLS, and migraines. Since pt was last seen pt was admitted at [facility] for ? TIA. [place] records reviewed. Pt had exp erienced numbness [...] the start of Plavix. Records reviewed from [place]. MRI, MRA negative, LDL 104. Hemoglobin A1c 5.7. She does follow with cardiology. . I will order an echo. Last echo on record was from 2018. Patient agrees and will follow-up with Dr. Diallo in [place] in 6-8 weeks. Medications: DULoxetine (CYMBALTA) 60 [...] to follow-up with Dr. Diallo. Quintin Santos APRN.CNP [facility], Department of Neurology 30 minutes were completed [id number] Quintin Santos APRN.ALFONSO, ALFONSO 11/14/2019 1:19 PM Addendum Get Echo Continue with Plavix, asa and lovastatin Follow up with Dr. Diallo in [place] Referring Provider: YANN DIALLO JR [[id number]] Allergies As of Date: 11/14/2019 Noted Allergy Reaction AUGMENTIN (AMOXICILLIN-POT CLAVUL*05/04/2017 2 - Rash CONTRAST DYE (IODINE) 11/14/2019 7 - Swelling Date Reviewed: 11/14/2019 Reviewed by: Sanjiv Stewart) Josue - Fully Assessed Reason for Visit: Established Patient [175] Cmt: ER follow up- [facility] Primary Visit Diagnosis:Numbness and tingling [R20.0, R20.2] Other Visit Diagnoses:Transient cerebral ischemia, unspeci fied type [G45.9] Palpitation [R00.2] H/O: stroke [Z86.73] Order(s):ECHO [[id number]] Order #: [id number]: 1 FUTURE perflutren lipid microspheres (DEFINITY) 1.1 [...] lovastatin Follow up with Dr. Diallo in [place] Prescriptions ordered this encounter Disp Refills Start [...] saline. Disposition: Return 6-8 weeks with Yoel Leal. Follow-up and Disposition History Recorded Encounter Status:Closed by QUINTIN SANTOS CNP on 11/14/19 ot-mra neck without contrast import on 2019-11-06 OT-MRA Neck Images were obtained outside of [facility] Normal 11-06-2019 [facility] without Contrast [id number] [place] ([id number]) IMPORT mr-mra head only without contrast import on 2019-11-06 MR-MRA Head ONLY Images were obtained outside of [facility] Normal 11-06-2019 [facility] without Contrast [id number] [place] ([id number]) IMPORT mr-brain without contrast import on 2019-11-06 MR-Brain without Images were obtained outside of [facility] Normal 11-06-2019 [facility] Contrast IMPORT [id number] [place] ([id number]) ct-brain/head without contrast import on 2019-11-05 CT-Brain/Head Images were obtained outside of [facility] Normal 11-05-2019 [place] without Contrast [id number] Clinic IMPORT [place] ([id number]) cr-chest 1 view import on 2019-11-05 CR-Chest 1 View Images were obtained outside of [facility] Normal 11-05-2019 [facility] IMPORT [id number] [place] ([id number]) cnpn on 2019-11-05 CNPN Telephone (NEURBA) Normal 11-05-2019 [place] CLAIRE Ross ([id number]) 1955 F Medical Date Time Provider Department Center 11/05/19 YANN DIALLO JR NEURBA ([id number]) During your visit today, we recorded the [...] go to ER today. She was at [employer] office when I spoke with he r. [...] BEDOLLA on 11/05/19 cnpn on 2019-10-13 [facility]) Normal 10-13-2019 [place] CLAIRE Ross ([id number]) 1955 F Medical Date Time Provider Department Center 10/13/19 YANN DIALLO JR ([id number]) During your visit today, we recorded the [...] 8 - 35 U/L Normal 0 10-09-2019 [facility] ( 55960) Comment: Performed By: #### [id number] ## ## [facility],[address] [place] [address] sgot (ast) on 10-08 AST/SGOT 22 13 - 39 U/L Normal 10-09-2019 [facility] (28494) Comment: Performed By: #### [id number] ## ## [facility],[address] [place] [address] 81155 sedrate on SEDRATE 16 0 - 30 mm/hr Normal 10-09-2019 [facility] (58184) Comment: Performed By: #### [id number] ## ## [facility],[address] [place] [address] 78982 creatinine on 10-08 Creatinine [Mass/Vol] 0.8 0.6 - 1.2 mg/dl Normal 10-09-19 [facility] ( 78117) Comment: Performed By: #### [id number] ## ## [facility],[address] [place] [address] 14721 cbc + diff on 10-08 Basophils (Bld) 0.00 0.00 - 0.10 x10EE3/UL Normal 10-09-2019 [facility] [#/Vol] [facility] (39776) Comment: Performed By: #### [id number] ## ## [facility],[address] [place] [address] 37283 Basophils/100 WBC (Bld) 0.4 0.0 - 2.0 % Normal 2019 [facility] ( 70448) Comment: Performed By: #### [id number] ## ## [facility],[address] [place] [address] 20299 CBC + DIFF Normal 10-09-2019 [facility] (94967) Comment: Result Comment: CBC-COMPLETE BLOOD COUNT Performed By: #### [id number] ## ## [facility],[address] [place] [address] 39761 Eosinophils (Bld) 0.30 0.00 - 0.50 x10EE3/UL Normal 10-09-2019 [facility] [#/Vol] [facility] (35175) Comment: Performed By: #### [id number] ## ## [facility],[address] [place] [address] 68935 Eosinophils/100 WBC (Bld) 6.3 0.0 - 7.0 % Normal 3 0 [facility] ( 83322) Comment: Performed By: #### [id number] ## ## [facility],[address] [place] [address] 15398 Erythrocyte distribution 15.8 12.0 - 15.6 % High [facility] (RBC) [Ratio] [facility] (17553) Comment: Performed By: #### [id number] ## ## [facility],[address] [place] [address] 18563 Hematocrit (Bld) [Volume 42.0 34.0 - 46.0 % Normal [facility] ( 75932) Comment: Performed By: #### [id number] ## ## [facility],[address] [place] [address] 88090 Hemoglobin (Bld) 14.1 12.0 - 16.0 g/dl Normal 10-09-2019 [facility] [Mass/Vol] [facility] (53146) Comment: Performed By: #### [id number] ## ## [facility],[address] [place] [address] 06935 Lymphocytes (Bld) 1.60 0.80 - 2.80 x10EE3/UL Normal 10-09-2019 [facility] [#/Vol] [facility] (04399) Comment: Performed By: #### [id number] ## ## [facility],[address] [place] [address] 50387 Lymphocytes/100 WBC (Bld) 31.6 20.0 - 45.0 % Normal [facility] ( 29569) Comment: Performed By: #### [id number] ## ## [facility],[address] [place] [address] 17196 MANUAL DIFF N/A Normal 10-09-2019 [facility] (12896) Comment: Performed By: #### [id number] ## ## [facility],[address] [place] [address] 58794 MCH (RBC) [Entitic mass] 31 27 - 33 pg Normal 10-08 [facility] ( 08436) Comment: Performed By: #### [id number] ## ## [facility],[address] [place] [address] 37919 MCHC (RBC) [Mass/Vol] 34 32 - 36 X10 3 Normal 10-09-19 20 [facility] ( 52249) Comment: Performed By: #### [id number] ## ## [facility],[address] [place] [address] 83146 MCV (RBC) [Entitic vol] 93 80 - 99 fl Normal 2019 [facility] ( 57161) Comment: Performed By: #### [id number] ## ## [facility],[address] [place] [address] 05510 Monocytes (Bld) 0.60 0.20 - 1.00 x10EE3/UL Normal 10-09-2019 [facility] [#/Vol] [facility] (94967) Comment: Performed By: #### [id number] ## ## [facility],[address] [place] [address] 48299 MONOS % 11.9 0.0 - 10.0 % High 10-09-2019 [facility] (83206) Comment: Performed By: #### [id number] ## ## [facility],[address] [place] [address] 18094 Morphology Kasi (Bld) [Interp] N/A Normal 10-09-2019 [facility] ( 02073) Comment: Performed By: #### [id number] ## ## [facility],[address] [place] [address] 76781 Neutrophils (Bld) 2.50 1.50 - 7.10 x10EE3/UL Normal 10-09-2019 [facility] [#/Vol] [facility] (25454) Comment: Performed By: #### [id number] ## ## [facility],[address] [place] [address] 65511 Neutrophils/100 WBC (Bld) 49.8 46.0 - 76.0 % Normal [facility] ( 18655) Comment: Performed By: #### [id number] ## ## [facility],[address] [place] [address] 31132 Platelet mean volume 7.7 6.6 - 10.5 fl Normal 10-09-19 20 [facility] (d) [Entitic vol] [facility] (80553) Comment: Result Comment: AUTOMATED DI FFERENTIAL Performed By: #### [id number] ## ## [facility],[address] [place] [address] 16613 Platelets (Bld) 191 150 - 450 x10EE3/UL Normal 10-09-2019 [facility] [#/Vol] [facility] (55060) Comment: Performed By: #### [id number] ## ## [facility],[address] [place] [address] 45578 RBC (Bld) [#/Vol] 4.52 4.10 - 5.30 x 10EE6/UL Normal 0 [facility] (23067) Comment: Performed By: #### [id number] ## ## [facility],[address] [place] [address] 09767 WBC (Bld) [#/Vol] 4.9 4.5 - 10.8 x 10EE3/UL Normal 10-09-2019 [facility] ( 16564) Comment: Performed By: #### [id number] ## ## [facility],[address] [place] [address] 60499 c-reactive protein on 2019-10-09 CRP [Mass/Vol] <0.10 0.00 - 1.00 mg/L Normal 10-09-2019 [facility] ( 88671) Comment: Performed By: #### [id number] ## ## [facility],[address] [place] [address] 42852 bun on 2019-10-09 Urea nitrogen [Mass/Vol] 12 6 - 20 mg/dl Normal 10-08 [facility] ( 73825) Comment: Performed By: #### [id number] ## ## [facility],[address] [place] [address] 20105 albumin plasma on Albumin [Mass/Vol] 4.2 3.4 - 4.8 g/dL Normal 10-09-2019 [facility] ( 12081) Comment: Performed By: #### [id number] ## ## [facility],[address] [place] [address] 13193 cnpn on 2019-08-28 CNPN Telephone (NEURGN) Normal 08-28-2019 [place] CLAIRE Ross ([id number]) 1955 Medical Date Time Provider Department Center 08/28/19 YANN DIALLO JR NEURGN ([id number]) During your visit today, we recorded the following informati on about you: [place] 08/28/2019 3:44 PM Signed Pre-certification of [employer] Name[facility] Spoke with: Miss Cuevas Pre-certification number: [id number] Good 08/28/19-11/26/19 Patient wants test scheduled at [facility] [place] 08/28/2019 3:44 PM Signed Patient insurance advised to get authorization for a split night study - in case this is required. She said if the second study is not n eeded the auth still covers just the PSG. Did you want to put a split study order in for me to send to [facility]? Yann Diallo MD 08/28/2019 9:12 PM Signed Yes. It is actually ordered as a split night if you see th e comments in the order. There is not an actual order for split night. El MouraPrasad 08/29/2019 10:46 AM Signed Patient is scheduled for a PSG at [facility] on 09/09/19 at 800 pm. Order was faxed to [phone]. Patient was notified. Allergies As of Date: [...] (PPP) [Relative 1.00 0.90-1.30 {INR} Normal 08-24 [facility]] System (00 000) Comment: Result Comment: Vitamin K An tagonist (VKA) Therapeutic Range: INR 2 to 3 (Target INR of 2.5) Note: For patients treated w ith VKA drugs, such as warfarin, the [place] [employer] 2012 Guideline recommends a therapeutic INR range of 2 to 3 (target INR of 2.5). This recommendation includes high -risk patients with antiphospholipid syndrome with previous arter ial or venous thromboembolism, current-generation mechanica l or bioprosthetic aortic heart valve replacement. Note: Patients with dictaphone mechanic al aortic valve replacement and additional risk factors for thromboembolic events (atrial fibrillation, previous throm boembolism, LV dysfunction, hypercoagulable conditions) or an older generation mechanical AVR (i.e., ball in-Cage) or any mechanical MVR should have a INR therapeutic range of 2 .5 to 3.5 target INR of 3). Marissa GH, et al. Chest 2012 ; 141:7S-47S Rosalino DUARTE et al. [facility] 20 ; 70: 252-289 Performed By: #### GPT #### [place] [id number] PT Coag (PPP) [Time] 10.4 9.7-13.0 sec Normal 0 [facility] (01592) Comment: Performed By: #### GPT #### [address] [address] progress on 2019-08 PROGRESS HNO ID: [id number] Normal 08-25-2019 [place] Author: Yann Diallo Jr. General Service: ? Medical Author Type: Physician Center Type: Progress Notes ([id number]) Filed: 08/25/2019 11:19 AM Note Text: ESTABLISHED [...] visit, with more than 50% of the t otal acov-zk-dprd time of the visit in counseling / coordination of care. hemogram on 2019-08 Erythrocyte distribution 15.6 11.7-14.4 % High 08-24 [facility] width (RBC) [Ratio] System (38663) Comment: Performed By: #### CBC1 #### [facility] [address] [place], [place] [address] Hematocrit (Bld) [Volume 41.8 34.1-44.9 % Normal 08-24 [facility] fraction] System (00 000) Comment: Performed By: #### CBC1 #### [facility] [address] [place], [place] [address] Hemoglobin (Bld) 13.4 11.2-15.7 g/dL Normal 08-25-2019 [facility] [Mass/Vol] System (0 0000) Comment: Performed By: #### CBC1 #### [facility] [address] [place], [place] [address] MCH (RBC) [Entitic mass] 30.4 25.6-32.2 pg Normal 08-24 [facility] System (00 000) Comment: Performed By: #### CBC1 #### [facility] [address] [place], [place] [address] MCHC (RBC) [Mass/Vol] 32.1 31.6-34.8 % Normal 08-25-19 20 [place] [facility] (43602) Comment: Performed By: #### CBC1 #### [facility] [address] [place], [place] [address] MCV (RBC) [Entitic vol] 94.8 79.4-94.8 fl Normal 2019 [facility] (00 000) Comment: Performed By: #### CBC1 #### [facility] [address] [place], [place] [address] Platelet mean volume (Bld) 10.7 9.4-12.3 fl Normal [facility] [Entitic vol] System (79173) Comment: Performed By: #### CBC1 #### [facility] [address] [place], [place] [address] Platelets (Bld) [#/Vol] 177 182-369 thou/cmm Low 2019 [facility] (00 000) Comment: Performed By: #### CBC1 #### [facility] [address] [place], [place] [address] RBC (Bld) [#/Vol] 4.41 3.93-5.22 mil/cmm Normal 08-25-2019 [facility] (00 000) Comment: Performed By: #### CBC1 #### [facility] [address] [place], [place] [address] RDW SD 55.0 36.4-46.3 fl High 08-25-2019 [facility] (24137) Comment: Performed By: #### CBC1 #### [facility] [address] [place], [place] [address] WBC (Bld) [#/Vol] 5.22 3.98-10.04 thou/cmm Normal 08-25-2019 [facility] (00 000) Comment: Performed By: #### CBC1 #### [facility] [address] [place], [place] [address] cnpn on 2019-08-25 CNPN Telephone (NEURGN) Normal 08-25-2019 [place] CLAIRE Rsos ([id number]) 1955 F Medical Date Time Provider Department Center 08/25/19 YANN DIALLO JR NEURGN ([id number]) During your visit today, we recorded the following informati on about you: [place] 08/25/2019 11:47 AM Signed Patient was seen [...] Fully Assessed Reason for Visit: Patient Question [1833] Cmt: Neurology - Cholesterol Prescriptions as of [...] CNOV Office Visit (NEURGN) Normal 08-25-19 20 [place] [facility] GUEVARACLAIRE Antoine ([id number]) 1955 F Medical Date Time Provider Department Center 08/25/19 10:30 AM YANN DIALLO JR NEURGN ([id number]) During your visit today, we recorded the following informati on about you: Pulse Blood pressure Weight Height 81/minute 114/66 61.6 kg 1.626 m Yann Diallo MD 08/25/2019 11:19 AM Signed ESTABLISHED PATIENT VISIT HISTORY OF PRESENT ILLNESS: Claire Perkinser is a 64 year old female, There [...] well with occasional breakthrough for which sh glynn takes 900mg rather than 600mg of gabapentin [...] asked why she is not falling asleep brooks maki states its due to her taking a [...] BRCA1-2 negative, daughter of sister with c cherri SOCIAL HISTORY Social History Tobacco Use - [...] with more than 50% of the total pyvx-cj-mfkm time of the visit in counseling / coordination of care. Yann Diallo MD 08/25/2019 10:52 AM Signed 1. Increase gabapentin to 900mg nightly (3 of the 300mg caps ules). Referring Provider: YANN DIALLO JR [[id number]] Allergies As of Date: 08/25/2019 Noted Allergy [...] sleep hygiene [Z72.821] Order(s):CBC [SQCBC] Order #: [id number] FUTURE PROTHROMBIN TIME/PT [SQPT] Order #: [id number] FUTURE POLYSOMNOGRAM (PSG) [4067498] Order #: [id number] FUTURE gabapentin (NEURONTIN) 300 mg capsuleTake 3 [...] Provider Note - ED v2: Normal 1 [facility] ED v2 Chart Review: [facility] ([id number]) ED NOTES ED NOTES: Nontoxic appearing female presents to urgent care with a c azef complaint of sore throat. Duration of symptoms [...] SIGNS: T PRBP SpO2O2(LPM) %FiO2 Method 08-Jun-2019 09:50:[id number]/71 97 CLINICAL IMPRESSION Diagnosis/Annotation: ED Dx Name:Viral [...] of care. This note was generated using [employer]. It may contain errors in wording, punctuation, or spelling. CRITICAL CARE TIME Is this a critically ill patient: no Electronic Signatures: Kyle Rodriguez (KHRIS-MANAGER CARGO) (Signed 08-Jun-2019 11:28) Authored: Provider Note - ED v2 Last Updated: 08-Jun-2019 11:28 by Kyle Rodriguez (AP RN-MANAGER CARGO) rheumatoid factor [ccl] on 2019-06-02 Rheumatoid Factor 280 <16 IU/mL High 06-02-2019 [facility] (42361) Comment: Result Comment: [facility] in [employer] [address] [place] [address] 10207 Salvatore King III, M.D. [id number] Performed By: #### [id number] ## ## [facility],[address] [place] [address] 01942 hepatitis c ab ia w/confirm [ccl] on 2019-06-02 Hepatitis C Ab IA Negative NEGAT Normal 06-02-2019 [facility] (38568) Comment: Result Comment: [facility] in Laboratories [address] [place] [address] Salvatore King III, M.D. [id number] Performed By: #### [id number] ## ## [facility],[address] [place] [address] 42216 hep b surface ag [ccl] on 2019-06-02 Hepatitis B Surf. Ag Negative NEGAT Normal 9 [facility] ( 19909) Comment: Result Comment: [facility] [address] [place] [address] Salvatore King III, M.D. [id number] Performed By: #### [id number] ## ## [facility],[address] [place] [address] 78914 hep b surface ab, quant [ccl] on 2019-06-02 HepB SurfaceAb,Quant <8.00 <8.00 Normal 9 [facility] (43406) Comment: Result Comment: No evidence of antibodies to Hepatitis B surface antigen. [facility] [address] [place] [address] Salvatore King III, M.D. [id number] Performed By: #### [id number] ## ## [facility],[address] [place] [address] 23326 hep b core ab, total (igm & igg) [ccl] on 2019-06-02 Hep B Core Ab,Total Negative NEGAT Normal 06-02-2019 [facility] ( 37863) Comment: Result Comment: [facility] [address] [place] [address] Salvatore King III, M.D. [id number] Performed By: #### [id number] ## ## [facility],[address] [place] [address] 11533 cyclic citrullinated pep ab igg [ccl] on 2019-06-02 CCP Antibody, IgG 59 <20 Units High 06-02-2019 J [facility] (55406) Comment: Result Comment: < 20 units: Negative 20-39 units: Weak Positive 40-59 units: Moderate Positi ve > 60 units: Strong Positive The following results were o btained with the [employer] QUANTA Lite CCP3 IgG LISSY. Anti-CCP values obtained wit h different manufacturers' assay methods may not be used interchangeably. The ma gnitude of the reported IgG levels cannot be correlated to an endpoint ti ter. [facility] [place] [address] Salvatore King III, M.D. [id number] Performed By: #### [id number] ## ## [facility],[address] [place] [address] 38474 ccp antibody, igg o n 2019-06-02 CCP Antibody, IgG 59 <20 Units High 06-02-2019 [facility] (52127) Comment: Performed By: #### RF, AHBSQ , AHBCOT, HBSAG, AHCV1B #### [facility] s Routine Lab [address] [place] [address] #### ANAIFS ### # [facility] Immunology [address] [place] [address] #### CCP #### [facility] [address] [place] [phone] shravan by ifa screen [ccl] on 2019-06-02 SHRAVAN Pattern Homogeneous Normal 06-02-2019 [facility] (64327) Comment: Result Comment: [facility] in [facility] [address] [place] [address] Salvatore King III, M.D. [id number] Performed By: #### [id number] ## ## [facility],[address] [place] [address] 82809 SHRAVAN Titer 1:160 NEGAT Abnormal 06-02-2019 [facility] (66698) Comment: Performed By: #### [id number] ## ## [facility],[address] [place] [address] 10932 Nuclear Ab IF (S) Positive NEGAT Abnormal 06-02-2019 [facility] [[facility] ( 51445) Comment: Result Comment: Normal range : negative at <1:80 serum dilution. Performed By: #### [id number] ## ## [facility],[address] [place], [place] [id number] tb by quantiferon *outside use only* on 2019-06-01 Interpretation TBNEG Normal 06-01-2019 [facility] (66175) Comment: Performed By: #### INTPGP ## ## [facility] Immunology [address] [place] [phone] Mitogen minus Nil 8.48 Normal 06-01-2019 [facility] (07029) Comment: Performed By: #### INTPGP ## ## [facility] Immunology [address] [place] [phone] TB NIL 0.07 IU/mL Normal 06-01-2019 [facility] (73439) Comment: Performed By: #### INTPGP ## ## [facility] Immunology [address] [place] [phone] TB Result NEGAT Negative Normal 06-01-2019 [facility] (82066) Comment: Performed By: #### INTPGP ## ## [facility] Immunology [address] [place] [phone] TB1 Ag minus Nil 0.00 <0.35 IU/mL Normal 06-01-2019 [facility] (64059) Comment: Performed By: #### INTPGP ## ## [facility] Immunology [address] [place] [phone] TB2 Ag minus Nil 0.00 <0.35 IU/mL Normal 06-01-2019 [facility] (92582) Comment: Performed By: #### INTPGP ## ## [facility] Immunology [address] [place], [place] [id number] quantiferon tb incubated [ccl] on 2019-06-01 Interpretation No evidence of current or Normal 06-01-2019 [facility] previous infection with [facility] Mycobacterium tuberculosis. (51338) Comment: Result Comment: [facility] inic Laboratories [address] [place] [address] Salvatore King III, M.D. [id number] Performed By: #### [id number] ## ## [facility],[address] [place] [address] Mitogen minus Nil 8.48 Normal 06-01-2019 [facility] (96058) Comment: Performed By: #### [id number] ## ## [facility],[address] [place] [address] TB NIL 0.07 IU/mL Normal 06-01-2019 [facility] (87628) Comment: Performed By: #### [id number] ## ## [facility],[address] [place] [address] TB Result Negative NEGAT Normal 06-01-2019 [facility] (86678) Comment: Performed By: #### [id number] ## ## [facility],[address] [place] [address] TB1 Ag minus Nil 0.00 <0.35 IU/mL Normal 06-01-2019 [facility] (18240) Comment: Performed By: #### [id number] ## ## [facility],[address] [place] [address] TB2 Ag minus Nil 0.00 <0.35 IU/mL Normal 06-01-2019 [facility] (05620) Comment: Performed By: #### [id number] ## ## [facility],[address] [place], [place] [phone] shravan by ifa on 06-01 SHRAVAN Pattern HOMO Normal 06-01-2019 [facility] Reference Lab (44234) Comment: Performed By: #### RF, AHBSQ , AHBCOT, HBSAG, AHCV1B #### [facility] Routine Lab [address] [place] [phone] #### ANAIFS ### # [facility] Immunology [address] [place] [phone] #### CCP #### [facility] Immuno Assay [address] [place] [phone] SHRAVAN Titer D160 Negative Abnormal 06-01-2019 [facility] (28927) Comment: Performed By: #### RF, AHBSQ , AHBCOT, HBSAG, AHCV1B #### [facility] Routine Lab [address] [place] [phone] #### ANAIFS ### # [facility] Immunology [address] [place] [phone] #### CCP #### [facility] Immuno Assay [address] [place] [phone] Nuclear Ab IF (S) Positive Negative Abnormal 06-01-2019 [facility] [Titer] Reference Lab (99941) Comment: Performed By: #### RF, AHBSQ , AHBCOT, HBSAG, AHCV1B #### [facility] Routine Lab [address] [place] [phone] #### ANAIFS ### # [facility] Immunology [address] [place] [phone] #### CCP #### [facility] Immuno Assay [address] [place] [phone] rheumatoid factor o n 2019-05-31 Rheumatoid Factor 280 <16 IU/mL High 05-31-2019 C [facility] (48584) Comment: Performed By: #### RF, AHBSQ , AHBCOT, HBSAG, AHCV1B #### [facility] Routine Lab [address] [place] [phone] #### ANAIFS ### # [facility] [address] [place] [phone] #### CCP #### [facility] Immuno Assay [address] [place] [phone] hepb surfaceab,quant on 2019-05-31 HepB SurfaceAb,Quant <8.00 <8.00 Normal 9 [facility] (85608) Comment: Performed By: #### RF, AHBSQ , AHBCOT, HBSAG, AHCV1B #### [facility] Routine Lab [address] [place] [phone] #### ANAIFS ### # [facility] [address] [place] [phone] #### CCP #### [facility] Immuno Assay [address] [place] [phone] hepatitis b surf. ag on 2019-05-31 Hepatitis B Surf. Ag NEGAT Negative Normal 9 [facility] (97658 ) Comment: Performed By: #### RF, AHBSQ , AHBCOT, HBSAG, AHCV1B #### [facility] [address] [place] [phone] #### ANAIFS ### # [facility] [address] [place] [phone] #### CCP #### [facility] s Immuno Assay [address] [place] [phone] hep c ab ia w/conf on 2019-05-31 Hepatitis C Ab IA NEGAT Negative Normal 05-31-2019 [facility] Reference [facility] (42772) Comment: Performed By: #### RF, AHBSQ , AHBCOT, HBSAG, AHCV1B #### [facility] Routine Lab [address] [place] [phone] #### ANAIFS ### # [facility] Immunology [address] [place] [phone] #### CCP #### [facility] Immuno Assay [address] [place] [phone] hep b core ab,total on 2019-05-31 Hep B Core Ab,Total NEGAT Negative Normal 05-31-2019 [facility] (91952) Comment: Performed By: #### RF, AHBSQ , AHBCOT, HBSAG, AHCV1B #### [facility] Routine Lab [address] [place] [phone] #### ANAIFS ### # [facility] Immunology [address] [place] [phone] #### CCP #### [facility] Immuno Assay [address] [place] [phone] vitamin d, 25 hydroxy on 2019-05-30 VitD 83.04 30.00 - 100 ng/mL Normal 05-30-2019 [facility] (46773) Comment: Result Comment: 25-OHD3 slhomo cates both endogenous production and supplementation. 25-OHD2 [...] D2 Not Esta blished Performed By: #### [id number] ## ## [facility],[address] [place] [address] 37885 uric acid on 2018-06 Urate [Mass/Vol] 5.0 2.3 - 6.6 mg/dl Normal 05-30-2019 [facility] ( 77181) Comment: Performed By: #### [id number] ## ## [facility],[address] [place] [address] 40436 sgpt (alt) on 05-30 ALT [Catalytic activity/Vol] 16 8 - 35 U/L Normal 1 07-31-2018 [facility] ( 85360) Comment: Performed By: #### [id number] ## ## [facility],[address] [place] [address] 03049 sgot (ast) on 05-30 AST/SGOT 25 13 - 39 U/L Normal 05-30-2019 [facility] (93749) Comment: Performed By: #### [id number] ## ## [facility],[address] [place] [address] 02301 sedrate on SEDRATE 15 0 - 30 mm/hr Normal 05-30-2019 [facility] (55801) Comment: Performed By: #### [id number] ## ## [facility],[address] [place] [address] 04604 cbc + diff on 05-30 Basophils (Bld) 0.00 0.00 - 0.10 x10EE3/UL Normal 05-30-2019 [facility] [#/Vol] [facility] (69250) Comment: Performed By: #### [id number] ## ## [facility],[address] [place] [address] 73613 Basophils/100 WBC (Bld) 0.7 0.0 - 2.0 % Normal 2018 [facility] ( 64105) Comment: Performed By: #### [id number] ## ## [facility],[address] [place] [address] 50657 CBC + DIFF Normal 05-30-2019 [facility] (62184) Comment: Result Comment: CBC-COMPLETE BLOOD COUNT Performed By: #### [id number] ## ## [facility],[address] [place] [address] 41565 Eosinophils (Bld) 0.20 0.00 - 0.50 x10EE3/UL Normal 05-30-2019 [facility] [#/Vol] [facility] (02668) Comment: Performed By: #### [id number] ## ## [facility],[address] [place], [place] [phone] Eosinophils/100 WBC (Bld) 5.6 0.0 - 7.0 % Normal 05-12 [facility] ( 21665) Comment: Performed By: #### [id number] ## ## [facility],[address] [place] [address] 49628 Erythrocyte distribution 14.4 12.0 - 15.6 % Normal [facility] (RBC) [Ratio] [facility] (95854) Comment: Performed By: #### [id number] ## ## [facility],[address] [place] [address] 77298 Hematocrit (Bld) [Volume 41.7 34.0 - 46.0 % Normal [facility] ( 28026) Comment: Performed By: #### [id number] ## ## [facility],[address] [place] [address] 31831 Hemoglobin (Bld) 13.8 12.0 - 16.0 g/dl Normal 05-30-2019 [facility] [Mass/Vol] [facility] (31626) Comment: Performed By: #### [id number] ## ## [facility],[address] [place] [address] 88099 Lymphocytes (Bld) 1.60 0.80 - 2.80 x10EE3/UL Normal 05-30-2019 [facility] [#/Vol] [facility] (43015) Comment: Performed By: #### [id number] ## ## [facility],[address] [place] [address] 03542 Lymphocytes/100 WBC (Bld) 42.0 20.0 - 45.0 % Normal [facility] ( 97055) Comment: Performed By: #### [id number] ## ## [facility],[address] [place] [address] 43806 MANUAL DIFF N/A Normal 05-30-2019 [facility] (47137) Comment: Performed By: #### [id number] ## ## [facility],[address] [place] [address] 95584 MCH (RBC) [Entitic mass] 30 27 - 33 pg Normal 05-30 [facility] ( 00402) Comment: Performed By: #### [id number] ## ## [facility],[address] [place] [address] 38037 MCHC (RBC) [Mass/Vol] 33 32 - 36 X10 3 Normal 05-30-20 19 [facility] ( 82680) Comment: Performed By: #### [id number] ## ## [facility],[address] [place] [address] 94283 MCV (RBC) [Entitic vol] 92 80 - 99 fl Normal 2018 [facility] ( 89900) Comment: Performed By: #### [id number] ## ## [facility],[address] [place] [address] 01012 Monocytes (Bld) 0.40 0.20 - 1.00 x10EE3/UL Normal 05-30-2019 Abelino nikolay [facility] [#/Vol] [facility] (14628) Comment: Performed By: #### [id number] ## ## [facility],[address] [place] [address] 27233 MONOS % 11.2 0.0 - 10.0 % High 05-30-2019 [facility] (86118) Comment: Performed By: #### [id number] ## ## [facility],[address] [place] [address] 84159 Morphology Kasi (Bld) [Interp] N/A Normal 05-30-2019 [facility] ( 54829) Comment: Performed By: #### [id number] ## ## [facility],[address] [place] [address] 08983 Neutrophils (Bld) 1.50 1.50 - 7.10 x10EE3/UL Normal 05-30-2019 [facility] [#/Vol] [facility] (64615) Comment: Performed By: #### [id number] ## ## [facility],[address] [place] [address] 35750 Neutrophils/100 WBC (Bld) 40.5 46.0 - 76.0 % Low [facility] ( 27040) Comment: Performed By: #### [id number] ## ## [facility],[address] [place] [address] 83983 Platelet mean volume 8.4 6.6 - 10.5 fl Normal 05-30-20 19 [facility] (d) [Entitic vol] [facility] (68008) Comment: Result Comment: AUTOMATED DI FFERENTIAL Performed By: #### [id number] ## ## [facility],[address] [place] [address] 66649 Platelets (Bld) 168 150 - 450 x10EE3/UL Normal 05-30-2019 [facility] [#/Vol] [facility] (75173) Comment: Performed By: #### [id number] ## ## [facility],[address] [place] [address] 19174 RBC (Bld) [#/Vol] 4.52 4.10 - 5.30 x 10EE6/UL Normal 9 [facility] (94061) Comment: Performed By: #### [id number] ## ## [facility],1 [facility] 363[address] WBC (Bld) [#/Vol] 3.8 4.5 - 10.8 x 10EE3/UL Low 05-30-2019 [facility] ( 94777) Comment: Performed By: #### [id number] ## ## [facility],1 [facility] 21818 calcium total on 29-05-20 Calcium [Mass/Vol] 9.9 8.6 - 10.2 mg/dl Normal 05-30-2019 [facility] ( 64069) Comment: Performed By: #### [id number] ## ## [facility],[address] [place] [address] 86261 c-reactive protein on 2019-05-30 CRP [Mass/Vol] <0.10 0.00 - 1.00 mg/L Normal 05-30-2019 [facility] ( 22355) Comment: Performed By: #### [id number] ## ## [facility],[address] [place] [address] 39972 bun/creat egfr (non-) on 2019-05-30 Age - Reported 63 years Normal 05-30-2019 [facility] (54866) Comment: Performed By: #### [id number] ## ## [facility],[address] [place] [address] 37073 Creatinine [Mass/Vol] 0.8 0.6 - 1.2 mg/dl Normal 05-30-20 [facility] ( 28647) Comment: Performed By: #### [id number] ## ## [facility],[address] [facility] 42497 GFR/1.73 sq M >60 60 - 999 mL/min/{1.73_m2} Normal [facility] non-blacks MDRD (000 00) (S/P/Bld) [...] PATIENTS 18 AND OLDER. Performed By: #### [id number] ## ## [facility],[address] [place] [address] 58879 Urea nitrogen [Mass/Vol] 10 6 - 20 mg/dl Normal 05-30 [facility] ( 63763) Comment: Performed By: #### [id number] ## ## [facility],[address] [place] [address] 33698 Urea nitrogen [Mass/Vol] Normal 05-30 [facility] (14536) Comment: Result Comment: BUN/CREATINI NE eGFR NON-) Performed By: #### [id number] ## ## [facility],[address] [place] [address] 14822 albumin plasma on Albumin [Mass/Vol] 4.2 3.4 - 4.8 g/dL Normal 05-30-2019 [facility] ( 61621) Comment: Performed By: #### [id number] ## ## [facility],[address] [place] [address] 00910 obsolete on 2017-10 OBSOLETE Orders Only Normal 11-02-2017 Hilda (IRIS) --------CLAIRE GUEVARA [facility] ) 1955 Kevin maki Provider [facility]11/02/17 YANN DIALLO JR During your visit (00 000) today, we recorded the follo wing information about you:Allergies As of Date: 11/02/2017 Noted Allergy ReactionAUGMENTIN (AMOXICILL IN-POT CLAVUL*05/04/2017 2 - RashDate Reviewed: 10/26/2017Reviewed by: Yann Diallo Jr. - Fully AssessedPrimary Visit Diagnosis:Obstructive sleep apnea (adult) (pediatric) [G47.33]Order(s):CPAP FULL F MALCOLM MASK [[id number]] Order #: [id number]: 1Prescriptions as of 11/02/2017 Sig: GABAPENTIN 300 [...] FOR*Follow-up and Disposition History RecordedEncounter Number: [id number] Status:Closed by YANN DIALLO on 11/02/17 neurology consultation on 2017-06-27 Neurology Consultation Normal 018 [facility] ([place]) (97677) vl carotid us/doppler complete on 2017-06-26 VL Carotid US/Doppler Complete Normal 06-26-2017 [facility] ([place]) (33022) progress note on 28-06-15 Protein mass conc Normal 06-26-2017 A [facility] ([place]) (35590) mri spine cervical w/o contrast on 2017-06-26 MRI SPINE ORIGINALMRI SPINE CERVICAL Normal [facility] CERVICAL W/O W/O CONTRAST Clinical [facility] ([place]) CONTRAST Statement: .. TIA, neck (76523) pain. Concern for stenosis.. Transient left foot [...] stenosis. Uncovertebral spurring and facet arthropathy cause niyuljum-lo-ootbpg right, mild left foraminal stenosis. C7-T1: No stenosis. IMPRESSION: 1. Symptoms in a right C6 or C7 distribution would correlate with the degenerative foraminal stenosis at C5-6 or C6-7 respectively.2. Mild degenerative spinal canal stenosis at C5-6 and C6-7.3. No intramedullary signal abnormality. Interpreted By: Dereje Timmons MDPreliminary Report By: Dereje Timmons MDElectronically Signed By: Dereje Timmons MD Dictated Date: 06/26/2017 12:48:07 PM Prelim Date: 06/26/2017 12:48:07 PM Sign Date: 06/26/2017 12:52:56 PM mra/mri brain w/o contrast on 2017-06-26 MRA/MRI BRAIN W/O ORIGINALMRA/MRI BRAIN W/O Normal 06-26-2017 [facility] CONTRAST CONTRAST Clinical [facility] ([place]) Statement: tia. TECHNIQUE: ([id number]) Multiplanar, multisequence MRI imaging of the brain was obtained. Xypl-qi-mhjffz MRA of the head. Source data and [...] MRA of the head. Interpreted By: Dereje Timmonsreliminary Report By: Dereje Timmons MDElectronically Signed By: Dereje Timmons MD Dictated Date: 06/26/2017 12:42:44 PM Prelim Date: 06/26/2017 12:42:44 PM Sign Date: 06/26/2017 12:47:58 PM lipid on 2017-06-26 Cholesterol in HDL mass 43 40-59 mg/dL [facility] (0000 0[facility] Comment: Result Comment: HDL Referenc e Interval:Less than 40 Low - high risk60 or above Optimal/lowers risk Performed By: #### CBC, ADIF F, ANEU, BMP, GFR, APTT, PRO, TROPI ####[place] [id number] [place] [address] 97194 Cholesterol in LDL mass 132 0-129 mg/dL High [facility] (0000 0) Comment: Result Comment: LDL is a sherin culated result and requires a 12-hr fast.LDL Reference Interval:Less than 100 [id number] Near or above [id number] Borderline high [id number] High uzrd676 and above Very high risk Performed By: #### CBC, ADIF F, ANEU, BMP, GFR, APTT, PRO, TROPI ####[address] [address] Cholesterol mass conc 194 50-199 mg/dL Normal 06-26-19 18 [facility] ([place]) (0000 0) Comment: Result Comment: Cholesterol Reference Interval:Less than 200 [id number] Borderline high eyay018 and above High risk Performed By: #### CBC, ADIF F, ANEU, BMP, GFR, APTT, PRO, TROPI ####[place] [id number] [place] [address] 83743 Triglyceride mass conc 97 3-149 mg/dL Normal 018 [facility] ([place]) (0000 0) Comment: Result Comment: Triglyceride Reference Interval:Less than 150 Krmqsr950-461 Borderline high [id number] High xdxk428 or higher Very high risk Performed By: #### CBC, ADIF F, ANEU, BMP, GFR, APTT, PRO, TROPI ####[address] [address] inpatient patient summary on 2017-06-26 Inpatient Patient Summary Normal 06-11 [facility] ([place]) (79595) echocardiogram, adult on 2017-06-26 Echocardiogram, Adult Normal 06-26-19 18 [facility]) (10232) discharge summary o n 2017-06-26 Discharge Summary Normal 06-26-2017 A [facility] ([place]) (35987) depart summary on 2 Depart Summary Normal 06-26-2017 [facility]) (49708) cbc on 2017-06-26 Erythrocyte distribution 15.2 11.5-15.5 % Normal 06-26 [facility] Auto Ratio (RBC) [facility] ([place]) (15079) Comment: Performed By: #### CBC, ADIF F, ANEU, BMP, GFR, APTT, PRO, TROPI ####[place] [address] Hematocrit Auto Volume 40.0 34.0-46.0 % Normal 018 [facility] Fraction (Bld) ([place]) (93683) Comment: Performed By: #### CBC, ADIF F, ANEU, BMP, GFR, APTT, PRO, TROPI ####[place] [address] Hemoglobin mass conc 13.3 12.0-16.0 G/dL Normal 8 [facility] (Bld) [facility] ([place]) (50495) Comment: Performed By: #### CBC, ADIF F, ANEU, BMP, GFR, APTT, PRO, TROPI ####[address] [address] MCH Auto Entitic mass 30.9 27.0-33.0 pg Normal 06-26-19 18 [facility] (RBC) ([place]) (0000 0) Comment: Performed By: #### CBC, ADIF F, ANEU, BMP, GFR, APTT, PRO, TROPI ####[place] [address] MCHC Auto mass conc 33.2 32.0-36.0 G/dL Normal 06-26-2017 [facility] (RBC) ([place]) (0000 0) Comment: Performed By: #### CBC, ADIF F, ANEU, BMP, GFR, APTT, PRO, TROPI ####[address] [address] MCV Auto Entitic volume 93.2 80.0-99.0 fL Normal 2017 [facility] (RBC) ([place]) (0000 0) Comment: Performed By: #### CBC, ADIF F, ANEU, BMP, GFR, APTT, PRO, TROPI ####[place] [address] Platelet mean volume Auto 9.3 6.6-10.5 fL Normal 06-11 [facility] Entitic volume (Bld) ([place]) (50490) Comment: Performed By: #### CBC, ADIF F, ANEU, BMP, GFR, APTT, PRO, TROPI ####[place] [address] Platelets Auto #/vol 128 150-450 10 3/mcL Low 8 [facility] ([facility]) ([place]) (0000 0) Comment: Performed By: #### CBC, ADIF F, ANEU, BMP, GFR, APTT, PRO, TROPI ####[place] [address] RBC Auto #/vol 4.30 4.10-5.30 10 6/mcL Normal 06-26-[address] [facility] (d) [facility] ([place]) (53040) Comment: Performed By: #### CBC, ADIF F, ANEU, BMP, GFR, APTT, PRO, TROPI ####[address] [address] WBC Auto #/vol (Bld) 3.50 4.50-10.80 10 3/mcL Low 06-26-19 18 [facility] ([place]) (0000 0) Comment: Performed By: #### CBC, ADIF F, ANEU, BMP, GFR, APTT, PRO, TROPI ####[place] [address] bmp on 2017-06-26 Calcium mass conc 8.7 8.4-10.1 mg/dL Normal 06-26-2017 A [facility] ([place]) (85733) Comment: Performed By: #### CBC, ADIF F, ANEU, BMP, GFR, APTT, PRO, TROPI ####[place] [address] Chloride molar conc 106 98-110 mEq/L Normal 06-26-2017 [facility] ([place]) (95807) Comment: Performed By: #### CBC, ADIF F, ANEU, BMP, GFR, APTT, PRO, TROPI ####[place] [address] CO2 molar conc 29 22-32 mEq/L Normal 06-26-2017 [facility] ([place]) (63453) Comment: Performed By: #### CBC, ADIF F, ANEU, BMP, GFR, APTT, PRO, TROPI ####[place] [address] Creatinine mass conc 0.61 0.50-1.20 mg/dL Normal 8 [facility] ([place]) (0000 0) Comment: Performed By: #### CBC, ADIF F, ANEU, BMP, GFR, APTT, PRO, TROPI ####[place] [address] Electrolyte Balance 7.0 4.0-15.0 mEq/L Normal 06-26-2017 [facility] ([place]) (0000 0) Comment: Performed By: #### CBC, ADIF F, ANEU, BMP, GFR, APTT, PRO, TROPI ####[place] [address] Glucose mass conc 88 82-115 mg/dL Normal 06-26-2017 A [facility] ([place]) (11709) Comment: Performed By: #### CBC, ADIF F, ANEU, BMP, GFR, APTT, PRO, TROPI ####[place] [address] Potassium molar conc 4.0 3.5-5.0 mEq/L Normal 8 [facility] ([place]) (0000 0) Comment: Performed By: #### CBC, ADIF F, ANEU, BMP, GFR, APTT, PRO, TROPI ####[place] [address] Sodium molar conc 142 136-145 mEq/L Normal 06-26-2017 A [facility] ([place]) (24600) Comment: Performed By: #### CBC, ADIF F, ANEU, BMP, GFR, APTT, PRO, TROPI ####[place] [address] Urea nitrogen mass conc 11.0 8.0-22.0 mg/dL Normal 2017 [facility] ([place]) (39144) Comment: Performed By: #### CBC, ADIF F, ANEU, BMP, GFR, APTT, PRO, TROPI ####[place] [address] Urea nitrogen/Creatinine 18.0 10.0-22.0 ratio Normal 06-26 [facility] ([place]) (71918) Comment: Performed By: #### CBC, ADIF F, ANEU, BMP, GFR, APTT, PRO, TROPI ####[place] [address] a1c on 2017-06-26 Hemoglobin A1c/Hemoglobin.total 5.7 4.0-6.0 % Normal 06-26-2017 [facility] ([facility]) [facility] ([place]) (02208) Comment: Performed By: #### CBC, ADIF F, ANEU, BMP, GFR, APTT, PRO, TROPI ####[place] [address] .morph on 2017-06-11 6 Platelets Auto #/vol Slt Decreased Normal 06-26 [facility] (d) ([place]) (0000 0) Comment: Performed By: #### CBC, ADIF F, ANEU, BMP, GFR, APTT, PRO, TROPI ####[place] [address] RBC morphology finding Nom Normal Normal [facility] ([facility] ([place]) (0000 0) Comment: Performed By: #### CBC, ADIF F, ANEU, BMP, GFR, APTT, PRO, TROPI ####[place] [address] .manual diff on 201 -06-26 Basophil %, Manual 1.0 0.0-2.5 % Normal 06-26-2017 [facility] ([place]) (44268) Comment: Performed By: #### CBC, ADIF F, ANEU, BMP, GFR, APTT, PRO, TROPI ####[place] [address] Basophil, Abs Manual 0.04 0.00-0.27 10 3/mcL Normal 8 [facility] ([place]) (80319) Comment: Performed By: #### CBC, ADIF F, ANEU, BMP, GFR, APTT, PRO, TROPI ####[place] [address] Cells Counted 100 Normal 06-26-2017 [facility] ([place]) (14540) Comment: Performed By: #### CBC, ADIF F, ANEU, BMP, GFR, APTT, PRO, TROPI ####[place] [address] Eosinophil, Abs Manual 0.32 0.00-0.65 10 3/mcL Normal 018 [facility] ([place]) (39601) Comment: Performed By: #### CBC, ADIF F, ANEU, BMP, GFR, APTT, PRO, TROPI ####[place] [address] Lymphocyte %, Manual 37.0 20.0-40.0 % Normal 8 [facility] ([place]) (0000 0) Comment: Performed By: #### CBC, ADIF F, ANEU, BMP, GFR, APTT, PRO, TROPI ####[place] [address] Lymphocyte, Abs Manual 1.29 0.90-4.32 10 3/mcL Normal 018 [facility] ([place]) (02318) Comment: Performed By: #### CBC, ADIF F, ANEU, BMP, GFR, APTT, PRO, TROPI ####[place] [address] Monocyte %, Manual 4.0 2.0-13.0 % Normal 06-26-2017 [facility] ([place]) (50489) Comment: Result Comment: 9.0 Performed By: #### CBC, ADIF F, ANEU, BMP, GFR, APTT, PRO, TROPI ####[place] [address] Monocyte, Abs Manual 0.14 0.09-1.40 10 3/mcL Normal 8 [facility] ([place]) (05751) Comment: Performed By: #### CBC, ADIF F, ANEU, BMP, GFR, APTT, PRO, TROPI ####[place] [address] Neutrophil %, Manual 49.0 50.0-75.0 % Low 8 [facility] ([place]) (02440) Comment: Performed By: #### CBC, ADIF F, ANEU, BMP, GFR, APTT, PRO, TROPI ####[place] [address] Neutrophil, Abs Manual 1.72 2.25-8.10 10 3/mcL Low 018 [facility] ([place]) (10871) Comment: Performed By: #### CBC, ADIF F, ANEU, BMP, GFR, APTT, PRO, TROPI ####[place] [address] .gfr on 2017-06-26 GFR Non- >60 Normal 06-26 [facility] ([place]) (72421) Comment: Result Comment: GFR Populati on mean [...] F, ANEU, BMP, GFR, APTT, PRO, TROPI ####[place] [id number] [place] [address] 76177 GFR >60 Normal 8 [facility] ([place]) (87917) Comment: Result Comment: GFR Populati on mean [...] F, ANEU, BMP, GFR, APTT, PRO, TROPI ####[place] [id number] [place] [address] 21962 xr chest 1 view on 2017 XR CHEST 1 VIEW ORIGINALXR CHEST 1 VIEW, Normal 2017 [facility] 2017 2:39 PM [facility] ([place]) INDICATION: chest pain/SOB (21536) COMPARISON: 03 August 2008 FINDINGS: The lungs and pleural spaces are clear. The cardiac silhouette is within normal size limits. The pulmonary vasculature is normal in appearance IMPRESSION: Clear lungs. Interpreted By: Jose Juan Maresreliminary Report By: Jose Juan Mares MDElectronically Signed By: Jose Juan Mares MD Dictated Date: 2017 2:41:44 PM Prelim Date: 2017 2:41:44 PM Sign Date: 2017 2:41:55 PM tropi on 2017 Troponin I.cardiac <0.015 0.000-0.040 ng/mL Normal [address] [facility] ([place]) (14194) Comment: Result Comment: Troponin I r eference ranges (02/16/14): 0.00-0.040 ng/mL Negative and non-diagnostic. >0.040 ng/mL Consistent with cardiac damage, increased clinical risk and possibility of myocardial infarction. Serial measurements, a rise & fall in test results, clinical history, appropriate symptoms and/or ECG changes may help assess possibility of MS. *Other non-acute coronary syndrome conditions such as CHF, myocarditis, pulmonary emboli, sepsis and cardiac s urgery could result in myocardial damage and increased troponin levels. Performed By: #### CBC, ADIF F, ANEU, BMP, GFR, APTT, PRO, TROPI ####[facility] [place] [address] 99488 pro on 2017 INR Coag RelTime (PPP) 0.9 ratio Normal 018 [facility] ([place]) (57069) Comment: Result Comment: The [employer] (CHEST, 1992, 102:312S-25S)recommended the rapeutic range for oral anticoagulant therapy is:LOW RISK: Prophylaxis of venous thrombosis INR: 2.0-3.0 Treatment of pulmonary embolism 2.0-3.0 P revention of systemic embolism 2.0-3.0HIGH RISK: Mechanical prosthetic valves 2.5-3.5 Performed By: #### CBC, ADIF F, ANEU, BMP, GFR, APTT, PRO, TROPI ####[place] [id number] [place] [address] 69383 Prothrombin time (PT) 10.9 9.0-14.5 seconds Normal 06-25-19 18 [facility] Coag time (PPP) [facility] ([place]) (62551) Comment: Result Comment: Effective , Protime results may be affected by some antibiotics (i.e. Ciprofloxa nikki, Azithromycin, Bactrim) which may potentiate the action of oral anticoagu lants, with further increases in Protime/INR. 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 [...] Erythrocyte distribution 15.0 11.5-15.5 % Normal 06-25 [facility] width Auto Ratio (RBC) [facility]) (53096) Comment: Performed By: #### CBC, ADIF F, ANEU, BMP, GFR, APTT, PRO, TROPI ####[place] [address] Hematocrit Auto Volume 44.7 34.0-46.0 % Normal 018 [facility] (Bld) ([place]) (08895) Comment: Performed By: #### CBC, ADIF F, ANEU, BMP, GFR, APTT, PRO, TROPI ####[place] [address] Hemoglobin mass conc 15.0 12.0-16.0 G/dL Normal 8 [facility] ([facility]) [facility] ([place]) (00500) Comment: Performed By: #### CBC, ADIF F, ANEU, BMP, GFR, APTT, PRO, TROPI ####[place] [address] MCH Auto Entitic mass 31.1 27.0-33.0 pg Normal 06-25-19 18 [facility] (RBC) ([place]) (0000 0) Comment: Performed By: #### CBC, ADIF F, ANEU, BMP, GFR, APTT, PRO, TROPI ####[place] [address] MCHC Auto mass conc 33.4 32.0-36.0 G/dL Normal 2017 [facility] (RBC) ([place]) (0000 0) Comment: Performed By: #### CBC, ADIF F, ANEU, BMP, GFR, APTT, PRO, TROPI ####[place] [address] MCV Auto Entitic volume 93.1 80.0-99.0 fL Normal 2017 [facility] (RBC) ([place]) (0000 0) Comment: Performed By: #### CBC, ADIF F, ANEU, BMP, GFR, APTT, PRO, TROPI ####[place] [address] Platelet mean volume Auto 8.3 6.6-10.5 fL Normal 06-11 [facility] Entitic volume ([facility]) ([place]) (04526) Comment: Performed By: #### CBC, ADIF F, ANEU, BMP, GFR, APTT, PRO, TROPI ####[address] [address] Platelets Auto #/vol 138 150-450 10 3/mcL Low 8 [facility] ([facility]) ([place]) (0000 0) Comment: Performed By: #### CBC, ADIF F, ANEU, BMP, GFR, APTT, PRO, TROPI ####[place] [address] RBC Auto #/vol 4.80 4.10-5.30 10 6/mcL Normal 2017 [facility] ([place]) (30933) Comment: Performed By: #### CBC, ADIF F, ANEU, BMP, GFR, APTT, PRO, TROPI ####[place] [address] WBC Auto #/vol 4.50 4.50-10.80 10 3/mcL Normal 2017 [facility] ([place]) (13329) Comment: Performed By: #### CBC, ADIF F, ANEU, BMP, GFR, APTT, PRO, TROPI ####[place] [address] bmp on 2017 Calcium mass conc 9.8 8.4-10.1 mg/dL Normal 2017 [facility] ([place]) (52818) Comment: Performed By: #### CBC, ADIF F, ANEU, BMP, GFR, APTT, PRO, TROPI ####[place] [address] Chloride molar conc 104 98-110 mEq/L Normal 2017 [facility] ([place]) (09670) Comment: Performed By: #### CBC, ADIF F, ANEU, BMP, GFR, APTT, PRO, TROPI ####[place] [address] CO2 molar conc 29 22-32 mEq/L Normal 2017 [facility]) (89250) Comment: Performed By: #### CBC, ADIF F, ANEU, BMP, GFR, APTT, PRO, TROPI ####[place] [address] Creatinine mass conc 0.67 0.50-1.20 mg/dL Normal 8 [facility] ([place]) (0000 0) Comment: Performed By: #### CBC, ADIF F, ANEU, BMP, GFR, APTT, PRO, TROPI ####[place] [address] Electrolyte Balance 7.0 4.0-15.0 mEq/L Normal 2017 [facility]) (0000 0) Comment: Performed By: #### CBC, ADIF F, ANEU, BMP, GFR, APTT, PRO, TROPI ####[place] [address] Glucose mass conc 86 82-115 mg/dL Normal 2017 A [facility] ([place]) (08969) Comment: Performed By: #### CBC, ADIF F, ANEU, BMP, GFR, APTT, PRO, TROPI ####[place] [address] Potassium molar conc 4.1 3.5-5.0 mEq/L Normal 8 [facility] ([place]) (0000 0) Comment: Performed By: #### CBC, ADIF F, ANEU, BMP, GFR, APTT, PRO, TROPI ####[address] [address] Sodium molar conc 140 136-145 mEq/L Normal 2017 A [facility] ([place]) (75136) Comment: Performed By: #### CBC, ADIF F, ANEU, BMP, GFR, APTT, PRO, TROPI ####[address] [address] Urea nitrogen mass conc 12.0 8.0-22.0 mg/dL Normal 2017 [facility] ([place]) ([address]38) Comment: Performed By: #### CBC, ADIF F, ANEU, BMP, GFR, APTT, PRO, TROPI ####[place] [address] Urea nitrogen/Creatinine 17.9 10.0-22.0 ratio Normal 06-25 [facility] ([place]) (98656) Comment: Performed By: #### CBC, ADIF F, ANEU, BMP, GFR, APTT, PRO, TROPI ####[place] [address] aptt on 2017 aPTT Coag time (Bld) 30.6 25.0-35.0 seconds Normal 8 [facility] ([place]) (33008) Comment: Result Comment: For Heparin anticoagulation therapy, the recommendedtherapeutic range is: 54-77 seconds (APTT Correlationwith Anti-Xa therapeutic range of 0.3-0.7 units/ml).PLEASE REFERENCE THE PHARMACY PROTOCOL FOR DOSING. Performed By: #### CBC, ADIF F, ANEU, BMP, GFR, APTT, PRO, TROPI ####[place] [address] aPTT Coag time (Bld) None Normal 8 [facility] ([place]) (67270) Comment: Result Comment: per Pauly Performed By: #### CBC, ADIF F, ANEU, BMP, GFR, APTT, PRO, TROPI ####[place] [address] .neuabs on Neutrophil, Absolute 2.10 2.25-8.10 10 3/mcL Low 8 [facility] ([place]) (0000 0) Comment: Performed By: #### CBC, ADIF F, ANEU, BMP, GFR, APTT, PRO, TROPI ####[place] [address] .gfr on 2017 GFR >60 Normal 8 [facility] ([place]) (41948) Comment: Result Comment: GFR Populati on mean [...] F, ANEU, BMP, GFR, APTT, PRO, TROPI ####[place] [id number] [place] [address] GFR Non- >60 Normal 06-25 [facility] ([place]) (84006) Comment: Result Comment: GFR Populati on mean [...] F, ANEU, BMP, GFR, APTT, PRO, TROPI ####[place] [id number] [place] [address] .auto diff on 06-25 Ammonia mass conc 0.30 0.09-1.40 10 3/mcL Normal 2017 [facility] [employer] () [facility] ([place]) ([address]397) Comment: Performed By: #### CBC, ADIF F, ANEU, BMP, GFR, APTT, PRO, TROPI ####[address] [address] Basophils Auto #/vol 0.00 0.00-0.27 10 3/mcL Normal 8 [facility]) (93268) Comment: Performed By: #### CBC, ADIF F, ANEU, BMP, GFR, APTT, PRO, TROPI ####[address] [address] Basophils/100 WBC Auto ([facility]) 0.2 0.0-2.5 % Normal 0 2017 [facility]) (0000 0) Comment: Performed By: #### CBC, ADIF F, ANEU, BMP, GFR, APTT, PRO, TROPI ####[address] [address] Eosinophils Auto #/vol 0.20 0.00-0.65 10 3/mcL Normal 018 [facility]) (27507) Comment: Performed By: #### CBC, ADIF F, ANEU, BMP, GFR, APTT, PRO, TROPI ####[address] [address] Eosinophils/100 WBC Auto 3.7 0.0-6.0 % Normal 06-25 [facility]) (77115) Comment: Performed By: #### CBC, ADIF F, ANEU, BMP, GFR, APTT, PRO, TROPI ####[address] [address] Lymphocytes Auto #/vol 1.90 0.90-4.32 10 3/mcL Normal [address] [place] [address]) (60556) Comment: Performed By: #### CBC, ADIF F, ANEU, BMP, GFR, APTT, PRO, TROPI ####[address] [address] Lymphocytes/100 WBC Auto 42.1 20.0-40.0 % High 06-25 [facility]) (80632) Comment: Performed By: #### CBC, ADIF F, ANEU, BMP, GFR, APTT, PRO, TROPI ####[facility] [place] [address] Monocytes/100 WBC Auto (Bld) 6.4 2.0-13.0 % Normal 0 2017 [facility] ([place]) (70240) Comment: Performed By: #### CBC, ADIF F, ANEU, BMP, GFR, APTT, PRO, TROPI ####[facility] [address] [place] [address] Neutrophils/100 WBC Auto 47.6 50.0-75.0 % Low 06-25 [facility] ([facility]) [facility] [place] ([place]) ([address]33) Comment: Performed By: #### CBC, ADIF F, ANEU, BMP, GFR, APTT, PRO, TROPI ####[facility] [address] [place] [address] Encounters Date Type Reason Provider Location 01-09-2018 Patient encounter AGUSTIN PENA [facility] ity:A MIKO AVILA 2017 - Patient encounter MIKO AVILA Facility: A 06-26-2017 YANN POWELL 03-22-2020 - Patient encounter Acute pharyngitis, YANN De Dios 03-22-2020 procedure unspecified SCAR YANN [facility]ital E SCAR (72507) YANN AVILA UNKNOWN PROVIDER UNKNOWN PROVIDER UNKNOWN PROVIDER 03-12-2020 Patient encounter [facility] Abdias [place] procedure [facility] MIKO AVILA UNKNOWN PROVIDER UNKNOWN PROVIDER UNKNOWN PROVIDER 03-12-2020 - Patient encounter [facility] Abdias [place] 03-12-2020 procedure [facility]47[facility] MIKO AVILA UNKNOWN PROVIDER UNKNOWN PROVIDER UNKNOWN PROVIDER 12-11-2019 - Patient encounter [facility] JOHNNY Abdias [place] 12-11-2019 procedure [facility]22[facility] MIKO AVILA UNKNOWN PROVIDER UNKNOWN PROVIDER UNKNOWN PROVIDER 11-26-2019 - Patient encounter YANN giraldo 11-26-2019 procedure YANN DIALLO [facility] YANN DIALLO (84938) MIKO AVILA UNKNOWN PROVIDER UNKNOWN PROVIDER UNKNOWN PROVIDER 10-09-2019 - Patient encounter MIKO giraldo 10-09-2019 procedure MIKO AVILA [facility] MIKO AVILA ([id number]) MIKO AVILA UNKNOWN PROVIDER UNKNOWN PROVIDER UNKNOWN PROVIDER 05-30-2019 - Patient encounter CARTER wintersne 05-30-2019 procedure CARTER TURNER [facility] CARTER TURNER (82563) MIKO AVILA UNKNOWN PROVIDER UNKNOWN PROVIDER UNKNOWN PROVIDER 03-04-2020 - Telephone Yann Roca Diallo [facility] inic 03-04-2020 encounter [facility] [place] Comment: Rx Refills (Gabapentin) Procedures Procedure Name Date Provider Location Mammography 12-05-2019 [facility] (24501) Colonoscopy 04-08-2015 [facility] (72177) Plan of Treatment Plan Description Date Location DTAP,TDAP,TD (3 - Td) DTAP,TDAP,TD (3 - Td) 08-04-2021 [facility] (18305) MAMMOGRAM MAMMOGRAM 12-04-2020 [facility] (27649) COLONOSCOPY COLONOSCOPY 04-08-2020 [facility] (94971) INFLUENZA (#1) INFLUENZA (#1) 2020 [facility] (53821) ADVANCE DIRECTIVE ADVANCE DIRECTIVE 2019 [facility] inic DISCUSSION DISCUSSION (00892) BONE DENSITY BONE DENSITY 2019 [facility] (51905) PNEUMOVAX AGE 65 AND OVER PNEUMOVAX AGE 65 AND OVER 2019 [facility] WITH 5YR LOOKBACK (#1) WITH 5YR LOOKBACK (#1) (0 4688) DIABETES SCREEN DIABETES SCREEN 07-14-2014 [facility] (12655) LIPID SCREEN LIPID SCREEN 02-18-2014 [facility] (68054) SHINGRIX VACCINE (1 of 2) SHINGRIX VACCINE (1 of 2) 2004 [facility] (41084) HEPATITIS C SCREENING HEPATITIS C SCREENING 1972 [facility] (80683) HIV SCREENING HIV SCREENING 1972 [facility] (34056) Immunizations Vaccine Notes Status Date Location DT(PEDIATRIC) diphtheria and tetanus (completed) 01-07-2003 [facility] toxoids, adsorbed for (46035 ) pediatric use Influenza Vaccine, influenza virus vaccine, (completed) 03-14-2011 [facility] Split-Non Spec unspecified formulation (4 4195) Influenza Vaccine, influenza virus vaccine, (completed) 03-23-2010 [facility] Split-Non Spec unspecified formulation (4 4195) Pneumovax pneumococcal (completed) 05-11-2010 [facility], (441 95) 23 valent Pneumovax pneumococcal (completed) 03-25-2008 [facility] polysaccharide vaccine, (441 95) 23 valent Tdap (Age 7+) tetanus toxoid, reduced (completed) 08-04-2011 [facility] diphtheria toxoid, and (4419 5) acellular pertussis vaccine, adsorbed Payers Payer Name Policy Number Location MEDICARE OUTPATIENT [id number] [facility] ([id number]) [employer] THP MEDICARE [id number] [facility] ([place]) ([address]602) [place] MED[place] [id number] [facility] ([id number]) [id number] [facility] ([id number]) [id number] [facility] ([id number]) [id number] [facility] (56803) [id number] [facility] ([id number]) [id number] [facility] ([id number]) [id number] [facility] (08339) [id number] [facility] (04759) The following information is from the original human readable contentNo Payer Records FoundNo Payer Records FoundNo Payer Records FoundNo Payer Records FoundNo Payer Records FoundNo Payer Records FoundNo Payer Records FoundNo Payer Records FoundNo Payer Records FoundNo Payer Records FoundNo Payer Records Found Social History Type Social History Description Date Locat ion Tobacco smoking status Never smoker 12-19-2019 [facility] (37731) NHIS Tobacco use and exposure Never used 12-19-2019 [facility] (28292) Alcohol intake Current non-drinker of 12-19-2019 [facility] (16841) alcohol (finding) Sex Assigned At Not on file [facility] (26280) The following information is from the original [...] Documents on File Type Date 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 [facility] provides no warranty or guarantee of the accuracy or completeness of information in this document. UNRECOGNIZED CONTENT PROVIDED BELOW FOR UNRECOGNIZED SECTION INFORMATION SOURCE DATE CREATED AUTHOR AUTHOR'S ORGANIZATIO N 11/28/2017 [facility] DATE CREATED AUTHOR AUTHOR'S ORGANIZATIO N 01/09/2018 [facility] ([place]) DATE CREATED AUTHOR AUTHOR'S ORGANIZATIO N 06/13/2019 [facility] DATE CREATED AUTHOR AUTHOR'S ORGANIZATIO N 12/29/2019 [facility] DATE CREATED AUTHOR AUTHOR'S ORGANIZATIO N 01/06/2020 [facility] Campbell veland DATE CREATED AUTHOR AUTHOR'S ORGANIZATIO N 03/06/2020 [facility] DATE CREATED AUTHOR AUTHOR'S ORGANIZATIO N 03/24/2020 [facility] Ref erence Lab DATE CREATED AUTHOR AUTHOR'S ORGANIZATIO N 03/24/2020 [facility] UNRECOGNIZED CONTENT PROVIDED BELOW FOR UNRECOGNIZED SECTION Source Comments In the event this information is protected by the Federal Confidentiality of Alcohol and Drug Abuse Patient Records regulations: The Federal rules restrict any use of the information to criminally investigate or prosecute any alcohol or drug abuse patient.[facility] UNRECOGNIZED CONTENT PROVIDED BELOW FOR UNRECOGNIZED [...] 3x per day. Spoke with Same at [facility] who states last refill was shipped 01/07/20. PATRICIA Lafleur Telephone Encounter - [place] - 03/04/2020 2:13 PM EDTPatient is requesting a refill of her Gabapentin be sent to [facility]. Last seen in office on . documented in this encounter
== END ==
PROVIDERS: PCP Family Medicine; Referring Provider Family Medicine; Visit Provider Family Medicine
DX: R91.1 Solitary pulmonary nodule (principal)
CPT/HCPCS: 71046

== ENCOUNTER 2020-07-16 09:20 | Day surgery (SDC) | payer MEDICARE, SELFPAY ==
[2020-07-07 08:56] VITALS: BMI 23.3
--- NOTE | 2020-07-16 06:58 | HP_ITS ---
Intake Vital Signs 07/07/20 Height 5 ft 4 in 07/07/20 Weight: 136 lb 07/07/20 BMI 23.3 07/07/20 BP 132/86 H 07/07/20 Blood Pressure Location Rt brachial 07/07/20 Position Sitting 07/07/20 Respiration 18 07/07/20 Pulse 74 07/07/20 Pulse Source Monitor 07/07/20 Temp 97.5 F L 07/07/20 Temp Source Temporal 07/07/20 Pulse Oximetry (%) 97 07/07/20 Oxygen Delivery Method room air Intake Visit Reasons: EGD & C-Scope Polyps Chief Complaint: EGD and C-Scope consult Quality And Reliability Engineer Required: No Is patient in pain?: No Allergies Iodinated Contrast Media Allergy (Severe, Verified 07/07/20 09:00) lip swelling amoxicillin [From Augmentin] Allergy (Verified 07/07/20 08:58) Rash clavulanic acid [From Augmentin] Allergy (Verified 07/07/20 08:58) Rash atorvastatin [From Lipitor] Adverse Reaction (Verified 07/07/20 08:58) Chest tightness Medications Etanercept [Enbrel] 50 mg SQ TU 11/14/14 [History Confirmed 07/07/20] Multivitamins,Ther W-Minerals [Multivitamin With Minerals (BKC)] 1 tab PO DAILY 11/14/14 [History Confirmed 07/07/20] methotrexate sodium 2.5 mg tablet 15 mg PO FR tab 03/13/18 [History Confirmed 07/07/20] Famotidine [Pepcid] 40 mg PO DAILY 11/05/19 [History Confirmed 07/07/20] Flaxseed Oil 1,000 mg PO DAILY 11/05/19 [History Confirmed 07/07/20] Fluticasone 0.05% [Flonase Nasal [place]] 2 spray NASAL BID PRN PRN 11/05/19 [History Confirmed 07/07/20] Lovastatin 10 mg PO QHS 11/05/19 [History Confirmed 07/07/20] B-complex with vitamin C 1 tab PO DAILY 07/07/20 [History Confirmed 07/07/20] ascorbate calcium (vitamin C) 500 mg tablet 500 mg PO DAILY 07/07/20 [History Confirmed 07/07/20] cholecalciferol (vitamin D3) 25 mcg (1,000 unit) tablet 5,000 unit PO DAILY tab 07/07/20 [History Confirmed 07/07/20] escitalopram oxalate 10 mg tablet 10 mg PO DAILY 07/07/20 [History Confirmed 07/07/20] folic acid 800 mcg tablet 1 mg PO QODAY tab 07/07/20 [History Confirmed 07/07/20] gabapentin 300 mg capsule 1,200 mg PO QHS cap 07/07/20 [History Confirmed 07/07/20] lansoprazole 30 mg capsule,delayed release 30 mg PO DAILY 07/07/20 [History Confirmed 07/07/20] magnesium oxide 250 mg PO DAILY tab 07/07/20 [History Confirmed 07/07/20] zinc gluconate 50 mg tablet 50 mg PO DAILY 07/07/20 [History Confirmed 07/07/20] [facility] Medical History Paresthesia of right arm and leg (Acute) Right hand weakness (Acute) TIA (transient ischemic attack) (Acute) Esophageal reflux (Chronic) IBS (irritable bowel syndrome) (Chronic) Osteoporosis (Chronic) Restless legs syndrome (RLS) (Chronic) Rheumatoid arthritis (Chronic) Anxiety and depression (Chronic) Borderline diabetes (Chronic) Dyslipidemia (Chronic) Immunosuppressed status (Chronic) 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, acute episode, 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) TIA (transient ischemic attack) (Acute) Left-sided weakness (Acute) Obstructive sleep apnea (Chronic) Right bundle branch block (Chronic) Colon polyps (Chronic) Leukopenia (Acute) Abdominal pain (Acute) Constipation (Acute) Hemorrhoids (Acute) Surgical History (Updated 07/07/20 @ 08:54 by Rachel Natarajan) H/O foot surgery (Acute) H/O left heart catheterization by cutdown (Acute) History of colonoscopy (Acute ~2014) S/P hysterectomy (Acute) S/P laparoscopic cholecystectomy (Acute) Family History (Updated 07/07/20 @ 08:56 by Rachel Natarajan) Mother Diabetes Heart disease Hypertension CAD (coronary artery disease) Sister Breast cancer Daughter CVA (cerebral vascular accident) Diabetes Seizures Thyroid disorder Father Asthma Cancer prostate cancer Social History (Updated 07/08/20 @ 13:[address] Jb Sharif MD) Smoking Status: Never smoker alcohol intake: never substance use type: does not use HPI HPI HPI: CLAIRE DEVON, is a 65 F who presents to the office today for HPI HPI Surgical H&P: Yes HPI: CLAIRE OSORIO, is a 65 F who presents to the office today for Left upper quadrant pain and history of polyps. The patient has been experiencing left upper quadrant pain. She has been on Prevacid. She reports that she tried taking Prilosec in the past but it interfered with her methotrexate. She says the pain does radiate to her left back. She says she has been under a lot of stress lately. Patient also needs screening colonoscopy. Her last colonoscopy was 5 years ago and she did have a polyp. She was recommended to have a repeat in 5 years. ROS General General: No weight change, appetite, fatigue, colon cancer, breast cancer or weakness HEENT HEENT: No difficulty swallowing, eye injury, eye surgery, swollen glands or hoarseness Endo Endocrine: No thyroid disease, diabetes mellitus, thyroid cancer, Hair loss, heat intolerance or cold intolerance Skin Skin: No rash or changing moles Breast Breast: No left breast lump, right breast lump, nipple discharge, breast pain, abnormal mammogram, abnormal US or breast enlargement Musc Musculoskeletal: Yes rheumatoid arthritis; no back problems, arthritis, gout or joint pain Cardio Cardiovascular: No murmur, pacemaker, heart disease, atrial fibrillation, high blood pressure, heart attack, heart stent, palpitations, shortness of breat with exertion or chest pain Psych Psychiatric: Yes anxiety; no depression or hearing voices Resp Respiratory: No shortness of breath, No sleep apnea, No cough, No COPD, No asthma, No emphysema, No wheezing Gastro Gastrointestinal: Yes abdominal pain, No nausea or vomiting, No diarrhea, Yes constipation, No blood in stool, Yes acid reflux, Yes hemorrhoids, No ulcers, No gallbladder problem, No black,tarry stools Ruben Hematologic: No blood thinners, No blood disorders, No bleeding, No anemia, No blood clots Neuro Neurologic: No system reviewed and no additional complaints, except as docu, No as per HPI, No abnormal walking, No abnormal hearing, No abnormal movements, No abnormal speech, No behavioral changes, No burning sensations, No confusion, No seizure-like activity, No unsteadiness, No dizziness, No localized weakness, No frequent falls, No headache(s), No lack of coordination, No loss of vision, No memory loss, No numbness, No other visual disturbances, No radiating pain, No restless legs, No sensory deficit, No fainting, No tingling, No tremor(s), No weakness, Yes other (History TIA) Exam Const General: cooperative Orientation: alert, oriented x3 Chest Breast Palpation: No nipple discharge Resp Effort & Inspection: normal respiratory effort Auscultation: clear to auscultation bilaterally Cardio Rate: regular rate Rhythm: regular rhythm Heart Sounds: no murmurs GI Inspection: non-distended Palpation: soft, nontender Assessment & Plan Problems 1. LUQ abdominal pain R10.12 2. History of colon polyps Z86.010 3. Gastroesophageal reflux disease, unspecified whether esophagitis present K21.9 Plan The patient has esophageal reflux and left upper quadrant pain. She has been taking Prevacid for 2 weeks. I advised her to take a 6-8 week course and I would recommend an EGD. Patient also requires colonoscopy as her last colonoscopy was 5 years ago and was recommended that she repeat in 5 years due to a colon polyp. I explained endoscopy in detail to the patient. I explained the risks including but not limited to stroke or heart attack with anesthesia, perforation of the GI tract, bleeding, infection. I explained that any of these could necessitate further emergency surgery. The patient understands and all questions were answered sufficiently. The patient wishes to proceed with procedure. Jb Sharif MD Pager: [facility] [address] [place] [address], [address] [place] [address] Office: Orders Orders: Colonoscopy 07/07/20 Z86.010 EGD 07/07/20 K21.9, R10.12 Coding Level of Care Code Off vis,est,level 3 Diagnoses LUQ abdominal pain R10.12 History of colon polyps Z86.010 Gastroesophageal reflux disease, unspecified whether esophagitis present K21.9 ??Esophagitis presence: esophagitis presence not specified I have re-examined the patient. There are no clinical changes since date of exam.
[2020-07-16 09:51] VITALS: BP 122/74; PULSE 70; RESP 16; TEMP 37.2; O2SAT 97; BMI 22.8
--- NOTE | 2020-07-16 10:30 | EGD_PTH ---
PATIENT: CLAIRE OSORIO LOC: EN U#:[id number] AGE/SX: 65/F ROOM: RE07/16/[address]: Dr. Jb Sharif MD : 1955 BED: DIS: 07/16/2020 SPEC #: [id number] RECD: 07/16/20 11:07 STATUS: ADRIANA LEE #: [id number] LÓPEZ: 07/16/20 10:[address]: Jb Sharif DEPT: SURGICAL PATHOLOGY RECD BY: Maria G Goldsmith ENTERED: 07/16/20 11:59 SP TYPE: EGD BIOPSY OTHR DR: Dr. Giovanny Davis MD Tissues: Gastric mucous membrane Procedures: Surgery Specimen Level IV HEADER OPERATION: Colonoscopy, EGD ([facility]) PRE-OP DIAGNOSIS: LUQ abdominal pain, history colon polyps; GERD; esophagitis TISSUE SUBMITTED: Antrum biopsy for histo and H. pylori MICROSCOPIC DIAGNOSIS Gastric antrum, biopsy: Chronic gastritis. See comment. AM:phyllis 07/19/2020 COMMENT The results of immunohistochemistry for Helicobacter pylori will be reported separately ([id number]). MICROSCOPIC DESCRIPTION Slides are reviewed. GROSS DESCRIPTION Received in fixative is one container labeled with the patient's name and designated antrum biopsy. The specimen consists of one irregular fragment of light worthy soft tissue that measures 0.5 x 0.3 x 0.1 cm. The specimen is totally submitted in one cassette. / AM:phyllis 07/16/20 TC:3 CPT: 74905
--- NOTE | 2020-07-16 10:30 | IMM_PTH ---
PATIENT: CLAIRE OSORIO LOC: EN U#:[id number] AGE/SX: 65/F ROOM: RE07/16/[address]: Dr. Jb Sharif MD : 1955 BED: DIS: 07/16/2020 SPEC #: [id number] RECD: 07/16/20 11:36 STATUS: ADRIANA REQ #: [id number] LÓPEZ: 07/16/20 10:[address]: Jb Sharif DEPT: IMMUNOHISTOCHEMISTRY RECD BY: Aggie Huber ENTERED: 07/16/20 11:36 SP TYPE: IMMUNO OTHR DR: Dr. Giovanny Davis MD Tissues: Stomach, NOS Procedures: H Pylori (initial) PHYSICIAN & INSTITUTION [place] [address] SPECIMEN INFORMATION: Tissue Source: Antrum biopsy Clinical Info: LUQ abdominal pain; history colon polyps; GERD; esophagitis Specimen Number: [id number] CPT code: 10621 METHODOLOGY: Deparaffinized sections of prefer/formalin-fixed tissue or PAP/DQ stained slides are incubated with monoclonal/polyclonal antibodies/oligonucleotide probes. Localization is made via biotin free immunoperoxidase method. Appropriate controls are performed and reacted as expected. Results on target cell population are indicated in the following table: RESULTS: ANTIBODY / CLONE RESULT H Pylori (polyclonal) negative These tests were developed and their performance characteristics determined by [facility]. They may not have been cleared or approved by the U.S. Food and Drug Administration. The FDA has determined that such clearance or approval is not necessary. INTERPRETATION: Antrum biopsy: Negative for Helicobacter pylori organisms. AM:phyllis 07/19/2020
[2020-07-16 10:54] VITALS: BP 100/58; BP 122/74; PULSE 67; RESP 14; TEMP 36.4; O2SAT 98
--- NOTE | 2020-07-16 10:55 | OP.CCLET_ITS ---
07/16/[address] [address] Re : Upper GI endoscopy procedure for Zeina Guevara Dear Dr. Davis This procedure was performed on Thursday, July 16, 2020. My impressions and recommendations are as follows: Impressions : - Gastritis with hemorrhage. Biopsied. - Normal esophagus. - Normal examined duodenum. Recommendations : - Discharge patient to home. - Resume previous diet. - Continue present medications. - Use sucralfate tablets 1 gram PO QID for 4 weeks. My findings are described in the full procedure note, which is enclosed. If I can be of further assistance, please feel free to contact me at Doctor phone number(s): , Work: . Sincerely, Jb Sharif MD 07/16/2020 10:55:11 AM This report has been signed electronically.
--- NOTE | 2020-07-16 10:55 | OP.EGD_ITS ---
Patient Name: Zeina Guevara Procedure Date: 07/16/2020 10:03 AM Date of : 1955 Age: 65 Procedure: Upper GI endoscopy Indications: Abdominal pain in the left upper quadrant Providers: Jb Sharif MD Referring MD: Giovanny Davis Medicines: Monitored Anesthesia Care Patient Profile: This is a 65 year old female. Refer to note in patient chart for documentation of history and physical. Complications: No immediate complications. Estimated blood loss: Minimal. Procedure: Pre-Anesthesia Assessment: - Prior to the procedure, a History and Physical was performed, and patient medications and allergies were reviewed. The patient's tolerance of previous anesthesia was also reviewed. The risks and benefits of the procedure and the sedation options and risks were discussed with the patient. All questions were answered, and informed consent was obtained. Prior Anticoagulants: The patient has taken no previous anticoagulant or antiplatelet agents. After reviewing the risks and benefits, the patient was deemed in satisfactory condition to undergo the procedure. After obtaining informed consent, the endoscope was passed under direct vision. Throughout the procedure, the patient's blood pressure, pulse, and oxygen saturations were monitored continuously. The Endoscope was introduced through the mouth, and advanced to the third part of duodenum. The upper GI endoscopy was accomplished without difficulty. The patient tolerated the procedure well. Scope In: 10:33:23 AM Scope Out: 10:39:10 AM Total Procedure Duration Time 0 hours 5 minutes 47 seconds Findings: Localized moderate inflammation with hemorrhage characterized by adherent blood and linear erosions was found in the stomach. Biopsies were taken with a cold forceps for Helicobacter pylori testing. The esophagus was normal. The examined duodenum was normal. Impression: - Gastritis with hemorrhage. Biopsied. - Normal esophagus. - Normal examined duodenum. Recommendation: - Discharge patient to home. - Resume previous diet. - Continue present medications. - Use sucralfate tablets 1 gram PO QID for 4 weeks. Procedure Code(s): --- Professional --- 12828, Esophagogastroduodenoscopy, flexible, transoral; with biopsy, single or multiple Diagnosis Code(s): --- Professional --- K29.71, Gastritis, unspecified, with bleeding R10.12, Left upper quadrant pain CPT copyright 2017 [employer]. All rights reserved. The codes documented in this report are preliminary and upon ultrasonic cleaner review may be revised to meet current compliance requirements. Jb Sharif MD 07/16/2020 10:55:11 AM This report has been signed electronically. Number of Addenda: 0 Note Initiated On: 07/16/2020 10:03 AM
--- NOTE | 2020-07-16 10:57 | OP.COLON_ITS ---
Patient Name: Zeina Guevara Procedure Date: 07/16/2020 10:39 AM Date of : 1955 Age: 65 Procedure: Colonoscopy Indications: High risk colon cancer surveillance: Personal history of colonic polyps Providers: Jb Sharif MD Referring MD: Giovanny Davis Medicines: Monitored Anesthesia Care Patient Profile: This is a 65 year old female. Refer to note in patient chart for documentation of history and physical. Last Colonoscopy: 5 years ago. Complications: No immediate complications. Procedure: Pre-Anesthesia Assessment: - Prior to the procedure, a History and Physical was performed, and patient medications and allergies were reviewed. The patient's tolerance of previous anesthesia was also reviewed. The risks and benefits of the procedure and the sedation options and risks were discussed with the patient. All questions were answered, and informed consent was obtained. Prior Anticoagulants: The patient has taken no previous anticoagulant or antiplatelet agents. After reviewing the risks and benefits, the patient was deemed in satisfactory condition to undergo the procedure. - Prior to the procedure, a History and Physical was performed, and patient medications and allergies were reviewed. The patient's tolerance of previous anesthesia was also reviewed. The risks and benefits of the procedure and the sedation options and risks were discussed with the patient. All questions were answered, and informed consent was obtained. Prior Anticoagulants: The patient has taken no previous anticoagulant or antiplatelet agents. After reviewing the risks and benefits, the patient was deemed in satisfactory condition to undergo the procedure. After I obtained informed consent, the scope was passed under direct vision. Throughout the procedure, the patient's blood pressure, pulse, and oxygen saturations were monitored continuously. The Colonoscope was introduced through the anus and advanced to the cecum, identified by appendiceal orifice and ileocecal valve. The colonoscopy was performed without difficulty. The patient tolerated the procedure well. The quality of the bowel preparation was good. Scope In: 10:41:47 AM Scope Withdrawal Time 0 hours 6 minutes 8 seconds Scope Out: 10:51:59 AM Total Procedure Duration Time 0 hours 10 minutes 12 seconds Findings: The entire examined colon appeared normal on direct and retroflexion views. Impression: - The entire examined colon is normal on direct and retroflexion views. - No specimens collected. Recommendation: - Discharge patient to home. - Resume previous diet. - Continue present medications. - Repeat colonoscopy in 10 years for screening purposes. Procedure Code(s): --- Professional --- 71226, Colonoscopy, flexible; diagnostic, including collection of specimen(s) by brushing or washing, when performed (separate procedure) Diagnosis Code(s): --- Professional --- Z86.010, Personal history of colonic polyps CPT copyright 2017 [employer]. All rights reserved. The codes documented in this report are preliminary and upon videotape operator review may be revised to meet current compliance requirements. Jb Sharif MD 07/16/2020 10:57:29 AM This report has been signed electronically. Number of Addenda: 0 Note Initiated On: 07/16/2020 10:39 AM
--- NOTE | 2020-07-16 10:58 | OP.CCLET_ITS ---
07/16/2020 Giovanny Davis [address] [place] [address] Re : Colonoscopy procedure for Zeina Guevara Dear Dr. Davis This procedure was performed on Thursday, July 16, 2020. My impressions and recommendations are as follows: Impressions : - The entire examined colon is normal on direct and retroflexion views. - No specimens collected. Recommendations : - Discharge patient to home. - Resume previous diet. - Continue present medications. - Repeat colonoscopy in 10 years for screening purposes. My findings are described in the full procedure note, which is enclosed. If I can be of further assistance, please feel free to contact me at Doctor phone number(s): , Work: . Sincerely, Jb Sharif MD 07/16/2020 10:57:29 AM This report has been signed electronically.
[2020-07-16 10:59] VITALS: BP 104/62; BP 122/74; PULSE 68; RESP 14; O2SAT 98
[2020-07-16 11:04] VITALS: BP 105/61; BP 122/74; PULSE 64; RESP 14; O2SAT 100
[2020-07-16 11:05] VITALS: BP 122/74; BP 99/61; PULSE 64; RESP 14; TEMP 36.6; O2SAT 66
[2020-07-16 11:43] VITALS: BP 122/74
== END 2020-07-16 11:49 | disposition home or self-care (01) ==
LOC: EN 09:20 → AC 09:21
PROVIDERS: PCP Family Medicine; Referring Provider Family Medicine; Visit Provider Surgery
PROC: 0DJD8ZZ Inspection of Lower Intestinal Tract, Via Natural or Artificial Opening Endoscopic (ICD-10-PCS; CPT 45378; principal; 2020-07-16 10:25)
DX: Z12.11 Encounter for screening for malignant neoplasm of colon (principal); Z20.828 Contact with and (suspected) exposure to other viral communicable diseases; M06.9 Rheumatoid arthritis, unspecified; K21.9 Gastro-esophageal reflux disease without esophagitis; M81.0 Age-related osteoporosis without current pathological fracture; G25.81 Restless legs syndrome; F32.9 Major depressive disorder, single episode, unspecified; F41.9 Anxiety disorder, unspecified; Z79.899 Other long term (current) drug therapy; E78.5 Hyperlipidemia, unspecified; G47.33 Obstructive sleep apnea (adult) (pediatric); K58.1 Irritable bowel syndrome with constipation; Z86.73 Personal history of transient ischemic attack (TIA), and cerebral infarction without residual deficits; Z86.010 Personal history of colon polyps; R10.12 Left upper quadrant pain; K29.71 Gastritis, unspecified, with bleeding; Z87.19 Personal history of other diseases of the digestive system
CPT/HCPCS: 43239; G0105; 87426; 88305; 88342; C9803; J7120

== ENCOUNTER → 2020-08-27 09:21 | Outpatient (CLI) | payer MEDICARE, SELFPAY ==
[2020-08-27 09:28] VITALS: BP 129/81; PULSE 69; RESP 16; TEMP 35.9; O2SAT 100; BMI 23.3
[2020-08-27] MEDS: 0.9% NaCl Peripheral Flush Adult/Peds IV ×2 (09:32→10:02)
[2020-08-27] MEDS: Zoledronic Acid 5 MG 100 ML 300 MG IV (09:40)
[2020-08-27 10:07] VITALS: BP 114/74; PULSE 64; RESP 16; TEMP 36.4; O2SAT 98
== END ==
PROVIDERS: PCP Family Medicine; Referring Provider Internal Medicine Endocrinology, Diabetes & Metabolism; Visit Provider Internal Medicine Endocrinology, Diabetes & Metabolism
DX: M81.0 Age-related osteoporosis without current pathological fracture (principal)
CPT/HCPCS: 96365; A4216; J3489

== ENCOUNTER 2021-09-03 21:45 | Emergency (ER) | payer MEDICARE, SELFPAY ==
[2021-09-03] VITALS (13 sets, daily range): BP systolic 125–150; BP diastolic 72–87; PULSE 64–97; RESP 14–74; TEMP 36.5–37.1; O2SAT 97–99; BMI 26.5; BMI 25.3
--- NOTE | 2021-09-03 21:47 | CT_ITS ---
We are attempting to reach an attending provider to discuss findings. An addendum with communication details will be sent when the communication is complete. STUDY: CT BRAIN WITHOUT CONTRAST REASON FOR EXAM: Female, 66 years old. Neuro deficit, acute, stroke suspected RADIATION DOSAGE (If Supplied By Facility): CTDIvol = ( ) mGy, DLP = ( ) mGycm TECHNIQUE: Transaxial CT imaging of the brain was performed without administration of intravenous contrast material. Individualized dose optimization techniques were used for this CT. COMPARISON: No relevant priors. FINDINGS: Normal soft tissue structures. Normal calvarium. Normal size ventricles and extra-axial spaces for the patient''s age. Normal white matter tracts of the cerebral hemispheres. Normal basal ganglia and thalami. Normal brainstem. Normal cerebellum. There is no intracranial hemorrhage. There are no findings of an acute ischemic infarction. Normal visualized paranasal sinuses. CT/STROKE Brain/Head without Cont IMPRESSION: Normal unenhanced CT scan of the brain. Electronically Signed: Shawnee Luis MD at 22:09 EDT Reading Location ID and State: [id number] / Tel , Service support ,
--- NOTE | 2021-09-03 21:47 | EKG12_ITS ---
Test Reason : CVA SYMPTOMS Blood Pressure : / mmHG Vent. Rate : 086 BPM Atrial Rate : 072 BPM P-R Int : 000 ms QRS Dur : 116 ms QT Int : 444 ms P-R-T Axes : 000 084 023 degrees QTc Int : 531 ms Atrial fibrillation Low voltage QRS Nonspecific ST and T wave abnormality Prolonged QT Abnormal ECG Confirmed by HOLLAND MENDOZA, CARI ([id number]), editor newspaper JELANI MELARA ([id number]) on 09/06/2021 10:49:32 AM Referred By: Confirmed By:CARI LINO MD
--- NOTE | 2021-09-03 21:52 | ED.RN ---
[facility] NOT STARTED BY SQUAD, STARTING IN CT AND WILL SEND [facility] LABS D/T TIME RESTRAINTS WITH STROKE SALERT AND YORDANW TIME
--- NOTE | 2021-09-03 22:01 | NURSING ---
220 NEUROLOGIST ON MONITOR AND POONAM DISCUSSED ORDER FOR TPA. PHARM CALLED TO LET KNOW WE WILL BE GIVING TO PATIENT.
--- NOTE | 2021-09-03 22:02 | EDS_ITS ---
HPI History of Present Illness Chief Complaint: Neuro S/Sx Detail of Chief Complaint: Strokelike symptoms Informant: patient, spouse/S.O. and EMS Onset/Context/Timing Onset: Hours Context: Sudden Onset Timing: Continuous Quality and Location: Positive for Left Arm Weakness, Left Leg Weakness, Slurred Speech and Difficulty with Ambulation Onset: Last known well 1899 Current Severity: Moderate Maximum Severity: Moderate Worsened by: Stroke Relieved by: Nothing Associated Symptoms Associated Symptoms: Positive for Headache; Negative for Nausea, Vomiting and Chest Pain Narrative Narrative: Patient has history of prior TIA/stroke February 2015 and hyper cholesterolemia. She was last known well by her at 1899 when he went out. He came in we took a shower. When he noticed that she was not moving her left side he called EMS. Upon arrival patient has profound deficit on the left side. She does complain of headache. She denies double vision, blurred vision loss of vision. She states her speech is improved markedly. She denies cardiac respiratory symptoms. Denies nausea or vomiting. She has no other complaints. Prior similar symptoms: Yes Recent Illness/Hospitalization: No [facility] Medical History (Updated 09/03/21 @ 22:[address] 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 Dyslipidemia Esophageal reflux Hemorrhoids IBS (irritable bowel syndrome) Immunosuppressed status Left-sided weakness Leukopenia Obstructive sleep apnea Osteoporosis Paresthesia of right arm and leg Restless legs syndrome (RLS) Rheumatoid arthritis Right bundle branch block Right hand weakness TIA (transient ischemic attack) TIA (transient ischemic attack) Unilateral vocal fold paresis Home Medications etanercept 50 mg SQ TU 11/14/14 [History Last Taken 10/28/19] multivitamin,hb-plcn-ayzapscz 1 tab PO DAILY 11/14/14 [History Last Taken 11/05/19] methotrexate sodium 2.5 mg tablet 15 mg PO FR tab 03/13/18 [History Last Taken 10/31/19] famotidine 40 mg PO DAILY 11/05/19 [History Last Taken 11/04/19] fluticasone propionate 2 spray NASAL BID PRN PRN 11/05/19 [History Last Taken 11/03/19] B-complex with vitamin C 1 tab PO DAILY 07/07/20 [History Last Taken Unknown] cholecalciferol (vitamin D3) 25 mcg (1,000 unit) tablet 5,000 unit PO DAILY tab 07/07/20 [History Last Taken Unknown] escitalopram oxalate 10 mg tablet 10 mg PO DAILY 07/07/20 [History Last Taken Unknown] folic acid 800 mcg tablet 1 mg PO QODAY tab 07/07/20 [History Last Taken Unknown] gabapentin 300 mg capsule 1,200 mg PO QHS cap 07/07/20 [History Last Taken Unknown] lansoprazole 30 mg capsule,delayed release 30 mg PO DAILY cap 07/29/20 [History Last Taken Unknown] aspirin 81 mg PO DAILY 09/03/21 [History Last Taken Unknown] Allergy/AdvReac Type Severity Reaction Status Date / Time Iodinated Contrast Media Allergy Severe lip Verified 09/03/21 21:54 swelling amoxicillin [From Augmentin] Allergy Rash Verified 09/03/21 21:54 clavulanic acid Allergy Rash Verified 09/03/21 21:54 [From Augmentin] atorvastatin [From Lipitor] AdvReac Chest Verified 09/03/21 21:54 tightness Family History Mother Diabetes Heart disease Hypertension CAD (coronary artery disease) Sister Breast cancer Daughter CVA (cerebral vascular accident) Diabetes Seizures Thyroid disorder Father Asthma Cancer prostate cancer Surgical History H/O foot surgery H/O left heart catheterization by cutdown History of colonoscopy (~2014) S/P hysterectomy S/P laparoscopic cholecystectomy Social History (Updated 09/03/21 @ 22:[address] Gaudencio Krishnamurthy MD) household members: spouse Smoking Status: Never smoker alcohol intake: never substance use type: does not use ROS ROS ED Constitutional Constitutional ED: Denies chills, fever(s), subjective, sweats or weakness Eyes Eyes: Denies blurry vision, change in vision or diplopia ENT ENT ED: Denies ear pain, rhinorrhea or sore throat Cardiovascular Cardiovascular: Denies chest pain, palpitations or racing heartbeat Respiratory/Chest Respiratory/Chest: Denies cough, dyspnea or dyspnea on exertion Gastrointestinal Gastrointestinal: Denies abdominal pain, constipation, diarrhea, nausea or vomiting Genitourinary Genitourinary ED: Denies dysuria, hematuria or urinary frequency Musculoskeletal Musculoskeletal: Denies arthralgias, back pain, myalgias or neck pain Integumentary Denies rash Neurologic Neurologic: Reports headache(s), paresthesias and weakness Endocrine Endocrinology: Denies polydipsia, polyphagia or polyuria Hematologic/Lymphatic Hematologic/Lymphatic: Denies easy bleeding or easy bruising EXAM Physical Exam Const Vital Signs: 09/03/21 21:46 09/03/21 21:47 09/03/21 21:50 Temperature 98.7 F 98.1 F 98.7 F Temperature Source Temporal Temporal Temporal Pulse Rate 97 78 74 Respiratory Rate 18 19 H 18 Blood Pressure 150/77 H 150/77 H 150/77 H Blood Pressure Mean 101 101 101 Pulse Ox 97 98 98 Oxygen Delivery Method Room Air Room Air Positive well nourished and well developed General Appearance ED: well developed and NAD HEENT Reports TM's clear and moist mucous membranes atraumatic; Negative for trauma Tympanic Membrane ED: Yes TM's clear Eyes PERRL and EOMs intact bilaterally General Eye ED: Negative for pale conjunctiva or scleral icterus Neck no lymphadenopathy, supple and no JVD Neck Narrative: There is no carotid bruit. Chest Wall inspection of chest normal and palpation of chest normal Resp normal respiratory effort and clear to auscultation bilaterally Cardio no murmurs Rate: regular rate Rhythm: regular rhythm Heart Sounds: S1 normal and S2 normal GI normal to inspection, nondistended, normoactive bowel sounds, soft to palpation, non-tender and non-distended Back/Spine no CVA tenderness Thoracic Spine / Upper Back: Negative for thoracic spinal tenderness Lumbar Spine / Lower Back: Negative for lumbar spinal tenderness Extremity normal to inspection General Extremety ED: Negative for deformity, edema or tenderness General Extremity: Negative for deformity or edema Neuro oriented x3 and No CN's II-XII intact bilaterally Nam Coma Scale: document GCS findings Obeys Commands Oriented Sensorium / Orientation: alert, oriented to person and oriented to place Motor Exam: Negative for strength 5/5 throughout Psych mental status grossly normal Skin no wounds General Skin Exam: Negative for jaundice Lesions: no lesions Rashes: no rashes STROKE Vital Signs/Narrative: Vital Signs Temp Pulse Resp BP Pulse Ox 09/03/21 21:50 98.7 F 74 18 150/77 H 98 09/03/21 21:47 98.1 F 78 19 H 150/77 H 98 09/03/21 21:46 98.7 F 97 18 150/77 H 97 NIHSS Initial: 1a Level of Consciousness: 0 1b LOC Questions (Score 2 if aphasic/stupor): 0 1c LOC Commands (Only score 1st attempt): 0 2 Best Gaze (If aphasic, use reflexive mvmts.): 0 3 Visual: 0 4 Facial Palsy: 1 5 Motor Arm Right (UN = amputation/fusion): 0 5 Motor Arm Left: 3 6 Motor Leg Right: 0 6 Motor Leg Left: 3 7 Limb ataxia (Only + if out of proportion): 0 8 Sensory (Aphasia/stupor=0 or 1, coma=2): 1 9 Best Language: 0 10 Dysarthria (mute, coma=2, intubated=UN): 0 11 Extinction and Inattention (only scored if +): 0 Total Score: 8 MDM MDM MDM Narrative Medical decision making narrative: This patient is at the 3-hour window soon as the neurologist from [facility] connected he was asked if he had seen the CAT scan. He did. He agrees there is no abnormality. Since patient has significant deficit and is a 3-hour window TPA was ordered. Pharmacy was called. They were made aware ahead of time and that patient is a candidate for TPA. Because patient developed angioedema to IV contrast was premedicated. Once the neurologist at [facility] was made aware this he recommended air transport to [facility] for possible intravascular intervention and work-up since she has a significant deficit. Radiography Diagnostic Testing: Clinical Impression(s) from Imaging Studies Brain CT 09/03/21 21:47 IMPRESSION: Normal unenhanced CT scan of the brain. Electronically Signed: Shawnee Luis MD at 22:09 EDT Reading Location ID and State: [id number] / Tel , Service support , EKG Initial EKG: Attestation: I personally reviewed and interpreted this EKG as follows: Interpretation: Sinus Rhythm (Sinus rhythm rate of 86. Disagree with computer read out of A. fib. Cures duration 116 ms. QT duration of 144 ms. Patient has motion artifact. Computer is reading as an ossific ST-T wave changes. QTC is 531 which is prolonged.) Stroke Documentation Questions Stroke Team Activated: Yes Reviewed Inclusion/Exclusion criteria: Yes Was Patient considered for Endovascular Intervention?: No-CTA negative, determined not to be an endovascular candidate (CTA was not ordered because patient has handle edema with contrast) IV Alteplase (t-PA) Administered: Yes No contraindications for IV Alteplase (t-PA) administration.: Yes Alteplase (t-PA) risks, benefits, alternative discussed: Yes Not given: Patient refusal: No Critical Care Time Critical Care Time: Yes Critical care time (excluding procedures): 30-74 minutes (31), Including time spent: (History, physical, documentation, review of CAT scan discussion with the neurologist at [facility] and the [facility] radiologist. The scan was interpreted by me and the [facility] neurologist at 20 200.), Discussing w/Patient &/or Family/Outside Barrel Lathe Operator, Discussing w/Consultants (Neurologist at [facility] and in [facility] radiologist), Arranging Admission or Transfer, Performing Direct Patient Care at Bedside and - (Administration of TPA) Discharge Plan Triage Chief Complaint: Neuro S/Sx ED Provider: Gaudencio Krishnamurthy Dx/Rx/DC Orders Clinical Impression: Acute stroke due to ischemia Prescriptions: No Action escitalopram oxalate 10 mg tablet 10 mg PO DAILY RF: 0 B-complex with vitamin C [Super B Complex-Vitamin C] Tablet 1 tab PO DAILY RF: 0 multivitamin,ap-dyao-vbldlvly 1 TABLET tablet 1 tab PO DAILY RF: 0 etanercept 50 MG/ML syringe 50 mg SQ TU RF: 0 cholecalciferol (vitamin D3) 25 mcg (1,000 unit) tablet 5,000 unit PO DAILY RF: 0 methotrexate sodium 2.5 mg tablet 15 mg PO FR RF: 0 gabapentin 300 mg capsule 1,200 mg PO QHS RF: 0 famotidine 40 MG tablet 40 mg PO DAILY RF: 0 fluticasone propionate 1 SPRAY spray,suspension 2 spray NASAL BID PRN PRN (Reason: Allergies) RF: 0 folic acid 800 mcg tablet 1 mg PO QODAY RF: 0 lansoprazole [Prevacid] 30 mg capsule,delayed release(DR/EC) 30 mg PO DAILY RF: 0 aspirin 81 mg Tablet 81 mg PO DAILY RF: 0 Primary Care Provider: Giovanny Davis Referrals: Giovanny Davis MD [Primary Care Provider] - Disposition Disposition: Acute Care Hospital Discharge Location: [facility] [place]
[2021-09-03] MEDS: MethylPREDNISolone 125 MG/2 ML Vial 60 MG IV (22:05)
[2021-09-03] MEDS: DiphenhydrAMINE 50 MG/ML Syringe 25 MG IV (22:05)
[2021-09-03] MEDS: Famotidine 200 MG/20 ML MDV 20 MG in 0.9% Normal Saline (Pres. free 8 ML 300 MG IV (22:06)
--- NOTE | 2021-09-03 22:08 | ED.RN ---
DAKOTAH MONZON SAYS TO DO TPA AND CAN FLY HER.
--- NOTE | 2021-09-03 22:17 | ED.RN ---
TPA STILL NOT HERE. RN WLKED DOWN TO PHARMACY TO GET IT SINCE NOT HERE YET.
[2021-09-03 22:18] LABS: Absolute Lymphocyte Count 2.45 X10^3/uL (0.83-4.51); Absolute Neutrophil Count 2.4 X10^3/uL (2.0-7.7); Basophil# 0.04 X10^3/uL; Basophil% 0.7 % (0-1); Eosinophil# 0.32 X10^3/uL; Eosinophils% 5.5 % (0-5); Hematocrit 40.7 % (37-47); Hemoglobin 13.5 g/dL (12.0-15.0); Lymphocyte # 2.45 X10^3/ul (0.83-4.51); Mean Corp Hgb Conc 33.2 g/dL (32-36); Mean Corpuscular Hgb 32.2 pg (27.0-32.0); Mean Corpuscular Volume 97.1 fL (81-99); Mean Platelet Vol. 9.9 fl (6.2-12.0); Monocyte# 0.64 X10^3/uL; NRBC Flagged by Analyzer 0 % (0-5); Neutrophil # 2.37 X10^3/uL (2.7-7.7); Neutrophil % 40.6 % (47-70); Platelet Count 151 K/mm3 (150-450); RBC Distribution Width CV 14.5 % (11.6-14.6); RBC Distribution Width SD 51.3 fl (35.1-43.9); Red Blood Count 4.19 M/mm3 (4.2-5.4); White Blood Count 5.8 K/mm3 (4.4-11.0)
[2021-09-03 22:30] LABS: Prothrombin Time (Protime)PT. 12.7 SECONDS (11.7-14.9)
[2021-09-03 22:31] LABS: Anion Gap 3 (5-15); BUN 11 mg/dL (7-18); BUN/Creat Ratio 16.1 RATIO (10-20); Calcium,Total 8.8 mg/dL (8.5-10.1); Chloride 110 mmol/L (98-107); Creatinine, Serum 0.68 mg/dL (0.55-1.02); EST Glomerular Filtration Rate 91 mL/min (>60); Est Glom Filt Rate - Afr Amer 110 mL/min (>60); Estimated Creatinine Clearance 45.16 ml/min; Glucose 99 mg/dL (74-106); Partial Thromboplast Time 24.7 Seconds (24.1-36.2); Potassium 3.3 mmol/L (3.5-5.1); Sodium Level 143 mmol/L (136-145)
--- NOTE | 2021-09-03 22:35 | ED.RN ---
NOT FLYING D/T WEATHER. [facility] CALLED FO TRANSPORT AND ON THE WAY. ETA 15 MINUTES
--- NOTE | 2021-09-03 22:37 | RAD_ITS ---
STUDY: X-RAY CHEST REASON FOR EXAM: Female, 66 years old. Neuro deficit, acute, stroke suspected TECHNIQUE: Single frontal view of the chest. COMPARISON: 11/18/2019. FINDINGS: The lungs are clear and expanded. There is no demonstrated pleural abnormality. Normal size heart. Normal mediastinum and chantel. Normal visualized pulmonary arteries. Normal visualized aortic arch and descending thoracic aorta. Normal visualized thoracic spine. Normal visualized ribs, clavicles, and shoulders. There is no demonstrated abnormality of the visualized soft tissue structures of the upper abdomen. RAD/Chest 1 View IMPRESSION: Normal x-ray examination of the chest. Electronically Signed: Shawnee Luis MD at 23:25 EDT Reading Location ID and State: [id number] / Tel , Service support ,
--- NOTE | 2021-09-03 22:40 | NURSING ---
PHARMACY SAYS THEY EROUNDED WEIGHT UP BY 0.10 KG AND THAT IS WHY THERE ARE TWO DOSES ENTERED AND ONE SET IS NOTED NOT GIVEN.
--- NOTE | 2021-09-03 22:52 | NURSING ---
We did not do the CTA because of allergy and the possible MRI thrombectomy. Discussed with case supervisor and MD. Followed-up to be sure not doing it still and we are still holding off. Not giving headache med for same reason. Reports her headache has improved to 6 now, from a 8
--- NOTE | 2021-09-03 22:54 | NURSING ---
Do not need to call report per medical unit secretary
--- NOTE | 2021-09-03 22:57 | ED.RN ---
26 vtbi tpa, pump still going. waiting on baptism at this time. paperwork complete and family updated on plan.
--- NOTE | 2021-09-03 23:07 | ED.RN ---
The change in medication for TPA has thrown off the spradsheet and two other RNs have looked at the flowsheet to see if can fix it a it ssys the TPA drip is infused but it is still going, with NS for flush. 19 minutes left with 0.81mg/kg/hr, 52.7 ml/hr, 16ml vtbi. Still awaiting squad.
--- NOTE | 2021-09-03 23:17 | ED.RN ---
report given to team for transfer. 8ml vtbi tpa
--- NOTE | 2021-09-03 23:23 | NURSING ---
post tpa 90 day follow up cancelled for patient to be transferred out
--- NOTE | 2021-09-05 09:35 | CM.ED ---
SW Note SW received a consult for patient for follow up with patient. SW reviewed the chart. Patient transferred to [facility]. No further SW needs at this time. Patient has access to social media editor at [facility]. Tri [facility]
== END 2021-09-03 23:23 | disposition short-term general hospital (02) ==
PROVIDERS: Emergency Provider Emergency Medicine; PCP Family Medicine; Visit Provider Emergency Medicine
DX: I63.9 Cerebral infarction, unspecified (principal); F32.A Depression, unspecified; F41.9 Anxiety disorder, unspecified; K21.9 Gastro-esophageal reflux disease without esophagitis; G47.33 Obstructive sleep apnea (adult) (pediatric); Z79.899 Other long term (current) drug therapy; Z79.82 Long term (current) use of aspirin
CPT/HCPCS: 36415; 51702; 70450; 71045; 80048; 85025; 85610; 85730; 87811; 93005; 96365; 96375; 99285; J2997; J7030; A4216; J3490

== ENCOUNTER → 2021-12-20 | Outpatient (CLI) | payer MEDICARE, SELFPAY ==
--- NOTE | 2021-12-20 08:09 | BI_ITS ---
MAMMOGRAPHY - BILATERAL SCREENING REASON FOR EXAM: Female, 66 years old. Routine annual screening examination. PERTINENT HISTORY: Sister with breast cancer. TECHNIQUE: Digital bilateral breast merritt (3D mammographic acquisition) in the CC and MLO projections. 2-D mediolateral oblique (MLO) and craniocaudad (CC) views of both breasts were obtained. CAD: Full Field Digital Mammography with Computer Added Detection was performed. COMPARISON: Comparison is made with prior outside examination dated 12/05/2019 and 03/02/2018 FINDINGS: Breast Composition: There are scattered areas of fibroglandular density. There are no dominant masses or suspicious calcifications. Stable 4.5 mm well-defined nodule in the medial retroareolar region of the left breast. This was shown to be a cyst on prior sonogram. No other significant abnormalities are identified. There has been no significant change since the prior study. BI/SCRN MAMM (CAD)W/MERRITT BILAT IMPRESSION: Stable bilateral screening mammogram. Yearly follow-up mammogram recommended. (A) ASSESSMENT CATEGORY: BIRADS Category 2: Benign. A letter regarding these results will be sent to the patient by the facility within 30 days. Approximately 10% of breast cancers are not detected by mammography. A normal mammogram should not delay biopsy of a clinically suspicious abnormality. [id number] Electronically Signed: Dave Lutz MD at 8:47 EDT ,
== END | disposition home or self-care (01) ==
LOC: OPBI 08:07
PROVIDERS: PCP Physician Assistant; Referring Provider Physician Assistant; Visit Provider Physician Assistant
DX: Z12.31 Encounter for screening mammogram for malignant neoplasm of breast (principal)
CPT/HCPCS: 77063; 77067

== ENCOUNTER → 2022-01-31 | Outpatient (CLI) | payer MEDICARE, SELFPAY ==
[2022-01-31 12:35] VITALS: BP 113/81; PULSE 69; TEMP 35.9; O2SAT 97
[2022-01-31] MEDS: 0.9% NaCl Peripheral Flush Adult/Peds IV (12:47)
[2022-01-31] MEDS: Zoledronic Acid 5 MG 100 ML 300 MG IV (12:48)
[2022-01-31] MEDS: 0.9% NaCl IVPB Med Flush (250 mL) 15 ML IV (12:48)
[2022-01-31 13:16] VITALS: BP 117/72; PULSE 64
== END | disposition home or self-care (01) ==
LOC: MEDOUTP 12:17
PROVIDERS: PCP Physician Assistant; Referring Provider Internal Medicine Rheumatology; Visit Provider Internal Medicine Rheumatology
DX: M81.0 Age-related osteoporosis without current pathological fracture (principal)
CPT/HCPCS: 96365; J7050; A4216; J3489

== ENCOUNTER → 2022-02-08 | Outpatient (CLI) | payer MEDICARE, SELFPAY ==
--- NOTE | 2022-02-08 11:06 | BD_ITS ---
STUDY: DUAL ENERGY X-RAY ABSORPTIOMETRY / DXA REASON FOR EXAM: Female, 66 years old. M810. Patient is postmenopausal. TECHNIQUE: Bone Mineral Density (BMD) measurements of lumbar spine and bilateral hips were obtained. COMPARISON: Comparison is made with prior study 08/14/2019. FINDINGS: Lumbar Spine (L1-L4): g/cm2 (0.823) / T-score (-2.0) / Z-score (-0.1) Findings are suggestive of osteopenia with a moderate fracture risk. Left Femur Total: g/cm2 (0.697) / T-score (-2.0) / Z-score (-0.6) Left Femoral Neck: g/cm2 (0.533) / T-score (-2.8) / Z-score (-1.2) Right Femur Total: g/cm2 (0.723) / T-score (-1.8) / Z-score (-0.4) Right Femoral Neck: g/cm2 (0.541) / T-score (-2.8) / Z-score (-1.1) The T-Scores on the most recent prior examination were: Lumbar Spine (L1-L4): There has been worsening of bone density since the previous examination. Left Femur Total: which represents a worsening of 4.1%. Right Femur Total: which represents a worsening of 1.8%. BD/Dexa Bone Density Study IMPRESSION: The patient is considered osteoporotic as outlined below according to World Andres Organization (WHO) criteria with a high fracture risk. There has been worsening of bone density since the previous examination. Reference Information: The T-score is the number of standard deviations above or below the standard which is normal for young adults at their peak bone mineral density. The World Health Organization (WHO) interprets the T-scores as follows: Above -1 Normal bone density Between -1 and -2.5 Osteopenia Equal to / or below -2.5 Osteoporosis As a practical clinical guideline, osteopenia may be graded as follows: Mild -1 through -1.5 Moderate -1.6 through -2.0 Severe -2.1 through -2.4 The Z-score is the number of standard deviations above or below age-matched controls. A Z-score of less than -1.5 would be considered abnormal. References: 1. NIH Osteoporosis and Related Bone Diseases www osteo.org 2. International Society for Clinical Densitometry www iscd.org 3. National Osteoporosis Foundation www nof.org Electronically Signed: Dave Lutz MD at 13:33 EDT ,
== END | disposition home or self-care (01) ==
LOC: OPBD 10:49
PROVIDERS: PCP Physician Assistant; Visit Provider Internal Medicine Rheumatology
DX: M81.0 Age-related osteoporosis without current pathological fracture (principal)
CPT/HCPCS: 77080

== ENCOUNTER → 2022-06-09 | Outpatient (CLI) | payer MEDICARE, SELFPAY ==
[2022-06-09 10:49] LABS: Vitamin D,25 Hydroxy 36.8 ng/mL
[2022-06-09 10:54] LABS: T4 Free Direct 0.86 ng/dL (0.76-1.46)
[2022-06-10 11:12] LABS: Thyroid Peroxidase AB 14 IU/mL (0-34)
== END | disposition home or self-care (01) ==
LOC: LAB 09:02
PROVIDERS: PCP Physician Assistant; Referring Provider Internal Medicine Endocrinology, Diabetes & Metabolism; Visit Provider Internal Medicine Endocrinology, Diabetes & Metabolism
DX: E04.2 Nontoxic multinodular goiter (principal); R73.03 Prediabetes; E55.9 Vitamin D deficiency, unspecified
CPT/HCPCS: 36415; 82306; 84439; 84443; 86376

== ENCOUNTER → 2022-06-26 | Outpatient (CLI) | payer MEDICARE, SELFPAY ==
--- NOTE | 2022-06-26 11:40 | US_ITS ---
STUDY: THYROID ULTRASOUND REASON FOR EXAM: Female, 67 years old. 8 mm TR4 nodule in left lobe, please compare 2014 TECHNIQUE: Ultrasound evaluation of the thyroid was performed with real-time and static frederick-scale imaging. COMPARISON: Comparison is made with prior study dated 04/13/2015. FINDINGS: RIGHT LOBE: The right lobe of the thyroid gland measures 4.4 cm x 1.4 cm x 1.1 cm. There is a homogeneous echotexture. There is a 3 mm x 3 mm x 1 mm colloid cyst in the lower pole. A similar appearing nodule measuring 3 mm x 2 mm x 2 mm is seen in the midportion. LEFT LOBE: The left lobe of the thyroid gland measures 3.9 cm x 1.2 cm x 0.9 cm. There is a homogeneous echotexture. 5 mm x 3 mm x 2 mm colloid cyst in the midpole. This has decreased in size as compared to prior study. ISTHMUS: The isthmus measures 2 mm. The regional lymph nodes are normal. US/Thyroid IMPRESSION: Subcentimeter bilateral colloid cysts. Electronically Signed: Dave Lutz MD at 14:23 EST ,
== END | disposition home or self-care (01) ==
LOC: US 11:38
PROVIDERS: PCP Physician Assistant; Visit Provider Internal Medicine Endocrinology, Diabetes & Metabolism
DX: E04.2 Nontoxic multinodular goiter (principal)
CPT/HCPCS: 76536

== ENCOUNTER → 2023-04-03 | Outpatient (CLI) | payer MEDICARE, SELFPAY ==
--- NOTE | 2023-04-03 10:44 | BI_ITS ---
MAMMOGRAPHY - BILATERAL SCREENING REASON FOR EXAM: Female, 67 years old. Routine annual screening examination. PERTINENT HISTORY: Sister with breast cancer. TECHNIQUE: Digital bilateral breast merritt (3D mammographic acquisition) in the CC and MLO projections. 2-D mediolateral oblique (MLO) and craniocaudad (CC) views of both breasts were obtained. CAD: Full Field Digital Mammography with Computer Added Detection was performed. COMPARISON: Comparison is made with prior study dated December 20, 2021 and March 02, 2018. FINDINGS: Breast Composition: There are scattered areas of fibroglandular density. There are no dominant masses or suspicious calcifications. Stable 4.5 cm well-defined nodule in the medial retroareolar region of the left breast. This was demonstrated to be a small cyst on prior sonogram. No other significant abnormalities are identified. There has been no significant change since the prior study. BI/SCRN MAMM (CAD)W/MERRITT BILAT IMPRESSION: Stable bilateral screening mammogram. Yearly follow-up mammogram recommended. (A) ASSESSMENT CATEGORY: BIRADS Category 2: Benign. A letter regarding these results will be sent to the patient by the facility within 30 days. Approximately 10% of breast cancers are not detected by mammography. A normal mammogram should not delay biopsy of a clinically suspicious abnormality. [id number] Electronically Signed: Dave Lutz MD at 12:04 EDT ,
== END | disposition home or self-care (01) ==
LOC: OPBI 10:42
PROVIDERS: PCP Physician Assistant; Referring Provider Physician Assistant; Visit Provider Physician Assistant
DX: Z12.31 Encounter for screening mammogram for malignant neoplasm of breast (principal)
CPT/HCPCS: 77063; 77067

== ENCOUNTER 2023-04-10 13:49 | Outpatient (CLI) | payer MEDICARE, SELFPAY ==
[2023-04-10 14:01] VITALS: BP 126/75; PULSE 74; RESP 16; TEMP 35.6; BMI 21.7
[2023-04-10] MEDS: Zoledronic Acid 5 MG 100 ML 400 MG IV (14:16)
[2023-04-10 14:38] VITALS: BP 127/70; PULSE 69; RESP 16; TEMP 36.1; O2SAT 98
== END 2023-04-10 13:50 | disposition home or self-care (01) ==
LOC: MEDOUTP 13:49
PROVIDERS: PCP Physician Assistant; Referring Provider Internal Medicine Rheumatology; Visit Provider Internal Medicine Rheumatology
DX: M81.0 Age-related osteoporosis without current pathological fracture (principal)
CPT/HCPCS: 96365; A4216; J3489

== ENCOUNTER → 2023-07-16 | Outpatient (CLI) | payer MEDICARE, SELFPAY | END | disposition home or self-care (01) | LOC: PSN 10:33 | PROVIDERS: PCP Physician Assistant; Visit Provider Physician Assistant Medical | DX: R47.01 Aphasia (principal) | CPT/HCPCS: 95819 ==

== ENCOUNTER → 2024-08-22 | Outpatient (CLI) | payer MEDICARE, SELFPAY ==
--- NOTE | 2024-08-22 10:14 | BI_ITS ---
PROCEDURE: SCRN MAMM (CAD)W/MERRITT BILAT REASON FOR EXAM: F, Age 69 y/o, presents for annual screening mammogram. Family history of breast cancer in her sister at 68 and a niece at 43. TECHNIQUE: Bilateral screening digital breast tomosynthesis with 2D and 3D images. Computer aided detection. COMPARISON: 04/03/2023, 12/20/2021 FINDINGS: There are scattered areas of fibroglandular density. No suspicious masses, areas of developing architectural distortion, or suspicious calcifications. BI/SCRN MAMM (CAD)W/MERRITT BILAT IMPRESSION: There is no mammographic evidence of malignancy. BI-RADS 1: NEGATIVE. RECOMMEND ANNUAL MAMMOGRAPHIC SCREENING. Follow-up code: Routine Follow-up The patient will be notified of the results by letter. Reading Location: [id number]
== END | disposition home or self-care (01) ==
PROVIDERS: PCP Physician Assistant; Referring Provider Physician Assistant; Visit Provider Physician Assistant
DX: Z12.31 Encounter for screening mammogram for malignant neoplasm of breast (principal)
CPT/HCPCS: 77063; 77067

== ENCOUNTER 2024-11-25 13:09 | Outpatient (RCR) | payer MEDICARE, SELFPAY ==
[2024-11-27 13:58] LABS: Hemoglobin 10.5 g/dL (12.0-15.0); Mean Corp Hgb Conc 30.9 g/dL (32-36); Mean Corpuscular Hgb 26.9 pg (27.0-32.0); Mean Corpuscular Volume 87.2 fL (81-99); Mean Platelet Vol. 11.2 fl (6.2-12.0); POSITIVE COUNT YES; Platelet Count 94 K/mm3 (150-450); RBC Distribution Width CV 15.6 % (11.6-14.6); RBC Distribution Width SD 49.8 fl (35.1-43.9); White Blood Count 6.4 K/mm3 (4.4-11.0)
[2024-11-27 13:59] LABS: Scan Indicated on CBC? Y/N YES- FLAGS NOTED
[2024-11-27 14:22] LABS: Differential Comment SCANNED
[2024-11-27 14:34] LABS: Creatinine, Serum 0.52 mg/dL (0.70-1.20); EST Glomerular Filtration Rate 100 (>60)
== END 2024-11-25 18:00 | disposition home or self-care (01) ==
LOC: HHLAB 13:09
PROVIDERS: PCP Physician Assistant; Referring Provider Internal Medicine Infectious Disease; Visit Provider Internal Medicine Infectious Disease
DX: L08.9 Local infection of the skin and subcutaneous tissue, unspecified (principal)
CPT/HCPCS: 80202; 82565; 85027

== ENCOUNTER → 2025-03-11 | Outpatient (CLI) | payer MEDICARE, SELFPAY | END | disposition home or self-care (01) | LOC: OPBD 08:17 | PROVIDERS: PCP Physician Assistant; Referring Provider Internal Medicine Rheumatology; Visit Provider Internal Medicine Rheumatology | DX: M81.0 Age-related osteoporosis without current pathological fracture (principal) | CPT/HCPCS: 77080 ==